=== PATIENT | male | born 1980 | race Caucasian/White ===

== ENCOUNTER → 2017-08-11 12:12 | Outpatient (CLI) | payer OTHER, SELFPAY ==
[2017-08-11] VITALS (8 sets, daily range): BP systolic 117–133; BP diastolic 71–84; PULSE 96–118; RESP 16–20; TEMP 36.2–36.6; O2SAT 94–98; BMI 34.2
[2017-08-11] MEDS: DiphenhydrAMINE 25 MG Capsule PO (12:17)
[2017-08-11] MEDS: Acetaminophen 325 MG Tablet 650 MG PO (12:17)
== END ==
DX: K50.90 Crohn's disease, unspecified, without complications (principal)
CPT/HCPCS: 96413; 96415; J7050; A4216; Q5102

== ENCOUNTER → 2017-10-06 12:07 | Outpatient (CLI) | payer OTHER, SELFPAY ==
[2017-10-06] VITALS (8 sets, daily range): BP systolic 122–139; BP diastolic 74–83; PULSE 71–98; RESP 16–18; TEMP 36.2–36.6; O2SAT 92–100; BMI 35.3
[2017-10-06] MEDS: Acetaminophen 325 MG Tablet 650 MG PO (12:07)
[2017-10-06] MEDS: DiphenhydrAMINE 25 MG Capsule PO (12:08)
== END ==
DX: K50.019 Crohn's disease of small intestine with unspecified complications (principal)
CPT/HCPCS: 96413; 96415; J7050; A4216; Q5103

== ENCOUNTER 2017-11-22 11:55 | Emergency (ER) | payer OTHER, SELFPAY ==
[2017-11-22 11:55] VITALS: BP 151/88; PULSE 79; RESP 16; TEMP 36.1; O2SAT 98; BMI 36.1
--- NOTE | 2017-11-22 12:20 | CT_ITS ---
STUDY: CT ABDOMEN AND PELVIS WITHOUT CONTRAST REASON FOR EXAM: Male, 36 years old. Left-sided abdominal pain. History of Crohn's disease and prior bowel resection. RADIATION DOSAGE (If Supplied By Facility): CTDIvol = ( 14.80 ) mGy, DLP = ( 881.46 ) mGycm TECHNIQUE: Transaxial images were obtained from the dome of the diaphragm to the symphysis pubis without oral contrast, and without intravenous contrast. Sagittal and coronal images were reconstructed. Individualized dose optimization techniques were used for this CT. COMPARISON: None. FINDINGS: Mild degree of increased markings at the lung bases suggestive of bibasilar atelectasis. The visualized portions of the heart are within normal limits. Normal liver. Normal gallbladder and extrahepatic biliary system. Borderline splenomegaly. Normal pancreas. Normal bilateral adrenal glands. Normal right kidney. Mild degree of left hydronephrosis due to a 3 mm calculus in the proximal portion of the left ureter. Normal visualized stomach. Normal small intestine. The patient is status post right hemicolectomy with anastomosis. The appendix is visualized and appears normal. Normal abdominal aorta. Normal inferior vena cava. Normal retroperitoneum. Normal urinary bladder. Normal abdominal wall. Normal osseous structures. CT/Abdomen/Pelvis without Cont IMPRESSION: 3 mm calculus in the proximal portion of the left ureter causing left hydronephrosis. Electronically Signed: Uri Jenkins MD at 13:46 EDT Tel [phone], Service support ,
--- NOTE | 2017-11-22 12:22 | ED.VISSUMM ---
- ER Visit Summary Date of Service: 11/22/17 Chief Complaint: Left-sided back pain History of Present Illness: The patient is a 36 M presenting with left-sided back and flank pain. This started around 8 AM this morning. He denies any injury. He has a history of a possible previous kidney stone. He has nausea, no vomiting. No diarrhea. He has history of Crohn's disease. Denies fever. He has mild abdominal cramping. Denies other complaints. Physical Examination: Vitals are stable. Patient is afebrile. Alert no acute distress. HEENT exam is unremarkable. Neck is supple. Lungs are clear and equal bilaterally. Heart is regular rate and rhythm. Abdomen is soft nontender nondistended. No rebound or guarding Back: left CVA tenderness, left paraspinal muscle tenderness Extremities are unremarkable. Skin is warm and dry. No focal neurologic deficit. Remainder of exam is unremarkable. Emergency Department Course and Treatment: Patient is given morphine, Zofran. CBC shows a white count of 12.0. Chemistries normal except creatinine 1.33. Urinalysis shows 0-5 white blood cells, 25-[address] flank shows 3 mm calculus in the proximal portion of the left ureter causing left hydronephrosis. On reevaluation, patient is resting comfortably. He is given a prescription for Percocet and Zofran. Advised to follow-up with primary care physician. Advised return to ED for worsening complaints. Disposition: Discharge home Impression: Urolithiasis This note was generated with [employer] dictation software. It may contain incorrect words, spelling, and punctuation that were not noted in review of the chart prior to signing ED Disposition - Plan for ED Patient: Chief Complaint: Flank Pain Instructions: ED Stone Renal W Colic Prescriptions: Oxycodone HCl/Acetaminophen [Percocet 5/325] 1 tablet PO Q6H PRN PRN 3 Days #12 tablet PRN Reason: Pain Ondansetron [Zofran Odt] 4 mg PO Q8H PRN PRN #10 tablet PRN Reason: Nausea Referrals: Nav Crenshaw MD [STAFF PHYSICIAN] - [facility] Doctor,Out of [Primary Care Provider] -
[2017-11-22] MEDS: 0.9% Normal Saline 1,000 ML 999 ML IV (12:46)
[2017-11-22] MEDS: Morphine 4 MG/ML Syringe IV (12:47)
[2017-11-22] MEDS: Ondansetron 4 MG/2 ML Vial IV (12:47)
[2017-11-22 12:50] LABS: Absolute Lymphocyte Count 2.49 X10^3/ul (0.83-4.51); Absolute Neutrophil Count 8.3 X10^3/uL (2.0-7.7); Basophil# 0.03 X10^3/uL; Basophil% 0.3 % (0-1); Eosinophils% 0.8 % (0-5); Hematocrit 43.3 % (40-54); Lymphocyte # 2.49 X10^3/ul (4.0); Lymphocyte % 20.8 % (19-41); Mean Corp Hgb Conc 34.6 g/gl (32-36); Mean Corpuscular Hgb 27.7 pg (27.0-32.0); Mean Corpuscular Volume 79.9 fL (80-94); Mean Platelet Vol. 10.4 fl (6.2-12.0); Monocyte# 1.01 X10^3/uL; Monocyte% 8.5 % (0-10); Neutrophil # 8.28 X10^3/uL (2.7-7.7); Neutrophil % 69.3 % (47-70); Platelet Count 237 K/mm3 (150-450); RBC Distribution Width CV 15.3 % (11.6-14.6); RBC Distribution Width SD 44.8 fl (35.1-43.9); Red Blood Count 5.42 M/mm3 (4.6-6.2)
[2017-11-22 12:53] LABS: POSITIVE COUNT NO; POSITIVE DIFFERENTIAL NO; POSITIVE MORPHOLOGY NO
[2017-11-22 12:54] LABS: Anion Gap 9 (5-15); BUN 18 mg/dL (7-18); BUN/Creat Ratio 13.5 RATIO (10-20); Chloride 109 mmol/L (98-107); Creatinine, Serum 1.33 mg/dL (0.70-1.30); EST Glomerular Filtration Rate 64 mL/min (>60); Est Glom Filt Rate - Afr Amer 77 mL/min (>60); Estimated Creatinine Clearance 73.57 ml/min; Glucose 114 mg/dL (74-106); Potassium 3.3 mmol/L (3.5-5.1); Sodium Level 142 mmol/L (136-145)
[2017-11-22 14:20] LABS: Bacteria 0 SEEN /hpf (None Seen); Mucous, Urine 0 SEEN /hpf (<or=2+)
[2017-11-22 14:23] LABS: Color, Urine Yellow (Yellow); Glucose, Dipstick Normal (Normal); Ketone-Dipstick Negative (Negative); Leukocyte Esterase-Dipstick 25 /ul (Negative); Nitrite-Dipstick Negative (Negative); Occult Blood-Urine 250 /ul (Negative); Protein-Dipstick Negative (Negative); Specific Gravity, Urine 1.015 (1.002-1.030); Urine Bilirubin Dipstick Negative (Negative); Urine Clarity Sl. Cloudy (Clear); Urine Urobilinogen Normal (Normal)
[2017-11-22 14:29] LABS: Red Blood Cells-Urine 25-50 SEEN /hpf (0-5); Squamous Epithelial Cells - UA 0-5 SEEN /hpf (0-5); White Blood Cells 0-5 SEEN /hpf (0-5)
[2017-11-22 14:30] LABS: Calcium Oxalate Crystals Ur 2+ /hpf (<or=2+)
--- NOTE | 2017-11-22 14:50 | ED.DEP ---
ED Disposition - Plan for ED Patient: Chief Complaint: Flank Pain Instructions: ED Stone Renal W Colic Prescriptions: Oxycodone HCl/Acetaminophen [Percocet 5/325] 1 tablet PO Q6H PRN PRN 3 Days #12 tablet PRN Reason: Pain Ondansetron [Zofran Odt] 4 mg PO Q8H PRN PRN #10 tablet PRN Reason: Nausea Referrals: [facility] Doctor,Out of [Primary Care Provider] - Nav Crenshaw MD [STAFF PHYSICIAN] -
--- NOTE | 2017-11-22 14:53 | DCINST.ED_ITS ---
ED Disposition - Plan for ED Patient: Chief Complaint: Flank Pain Instructions: ED Stone Renal W Colic Prescriptions: Oxycodone HCl/Acetaminophen [Percocet 5/325] 1 tablet PO Q6H PRN PRN 3 Days #12 tablet PRN Reason: Pain Ondansetron [Zofran Odt] 4 mg PO Q8H PRN PRN #10 tablet PRN Reason: Nausea Referrals: [facility] Doctor,Out of [Primary Care Provider] - Nav Crenshaw MD [STAFF PHYSICIAN] -
[2017-11-22 15:12] VITALS: BP 131/84; PULSE 78; RESP 16; O2SAT 99
== END 2017-11-22 15:13 | disposition home or self-care (01) ==
PROVIDERS: Emergency Provider Emergency Medicine
DX: N13.2 Hydronephrosis with renal and ureteral calculous obstruction (principal); K50.90 Crohn's disease, unspecified, without complications; Z79.899 Other long term (current) drug therapy; Z87.442 Personal history of urinary calculi
CPT/HCPCS: 74176; 80048; 81001; 85025; 96361; 96374; 96375; 99283; J7030; A4216; J2405

== ENCOUNTER → 2017-11-30 11:48 | Outpatient (CLI) | payer OTHER, SELFPAY ==
[2017-11-30] VITALS (8 sets, daily range): BP systolic 122–142; BP diastolic 68–88; PULSE 108–120; RESP 16–18; TEMP 36.3–36.6; O2SAT 91–98; BMI 35.9
[2017-11-30] MEDS: DiphenhydrAMINE 25 MG Capsule PO (12:25)
[2017-11-30] MEDS: Acetaminophen 325 MG Tablet 650 MG PO (12:26)
== END ==
DX: K50.90 Crohn's disease, unspecified, without complications (principal)
CPT/HCPCS: 96413; 96415; J7050; A4216; Q5103

== ENCOUNTER → 2018-01-24 11:58 | Outpatient (CLI) | payer OTHER, SELFPAY ==
[2018-01-24 12:27] VITALS: BP 142/79; PULSE 91; RESP 16; TEMP 37; O2SAT 98
[2018-01-24] MEDS: Acetaminophen 325 MG Tablet 650 MG PO (12:33)
[2018-01-24] MEDS: DiphenhydrAMINE 25 MG Capsule PO (12:33)
[2018-01-24 12:57] VITALS: BP 158/98; PULSE 59; RESP 16
[2018-01-24 13:15] VITALS: BP 141/70; PULSE 90; RESP 16
[2018-01-24 13:50] VITALS: BP 126/79; PULSE 84; RESP 16; O2SAT 98
[2018-01-24 15:30] VITALS: BP 127/69; PULSE 84; RESP 16
== END ==
DX: K50.019 Crohn's disease of small intestine with unspecified complications (principal)
CPT/HCPCS: 96413; 96415; J7050; Q5103

== ENCOUNTER 2018-02-03 19:31 | Emergency (ER) | payer OTHER, SELFPAY ==
[2018-02-03 19:34] VITALS: BP 159/94; PULSE 123; RESP 20; TEMP 36.9; O2SAT 97; BMI 34.7
--- NOTE | 2018-02-03 20:40 | EKG12_ITS ---
Test Reason : CP Blood Pressure : / mmHG Vent. Rate : 104 BPM Atrial Rate : 104 BPM P-R Int : 120 ms QRS Dur : 098 ms QT Int : 326 ms P-R-T Axes : 036 052 005 degrees QTc Int : 428 ms Sinus tachycardia Otherwise normal ECG Confirmed by WARREN SHEPARD ([id number]), commissioning editor CHRIS FOSTER ([id number]) on 02/08/2018 2:40:49 PM Referred By: Confirmed By:WARREN SHEPARD
[2018-02-03] MEDS: Morphine 4 MG/ML Syringe IV (21:08)
[2018-02-03] MEDS: Ondansetron 4 MG/2 ML Vial IV (21:08)
[2018-02-03] MEDS: 0.9% Normal Saline 1,000 ML 1000 ML IV (21:08)
[2018-02-03 21:12] LABS: Absolute Lymphocyte Count 1.43 X10^3/ul (0.83-4.51); Basophil# 0.01 X10^3/uL; Basophil% 0.1 % (0-1); Eosinophil# 0.01 X10^3/uL; Eosinophils% 0.1 % (0-5); Hematocrit 41.8 % (40-54); Hemoglobin 13.8 g/dl (13.0-16.5); Lymphocyte # 1.43 X10^3/ul (4.0); Lymphocyte % 8.5 % (19-41); Mean Corpuscular Volume 81.6 fL (80-94); Mean Platelet Vol. 10.1 fl (6.2-12.0); Monocyte# 1.25 X10^3/uL; Monocyte% 7.5 % (0-10); Neutrophil # 14.03 X10^3/uL (2.7-7.7); Neutrophil % 83.6 % (47-70); Platelet Count 201 K/mm3 (150-450); RBC Distribution Width CV 15.1 % (11.6-14.6); RBC Distribution Width SD 44.8 fl (35.1-43.9); Red Blood Count 5.12 M/mm3 (4.6-6.2); White Blood Count 16.8 K/mm3 (4.4-11.0)
[2018-02-03 21:13] LABS: POSITIVE COUNT NO; POSITIVE DIFFERENTIAL NO; POSITIVE MORPHOLOGY NO
[2018-02-03 21:28] LABS: Anion Gap 11 (5-15); BUN 15 mg/dL (7-18); BUN/Creat Ratio 12.4 RATIO (10-20); Chloride 103 mmol/L (98-107); Creatinine, Serum 1.21 mg/dL (0.70-1.30); EST Glomerular Filtration Rate 71 mL/min (>60); Est Glom Filt Rate - Afr Amer 86 mL/min (>60); Estimated Creatinine Clearance 80.08 ml/min; Glucose 94 mg/dL (74-106); Potassium 3.9 mmol/L (3.5-5.1); Sodium Level 139 mmol/L (136-145)
[2018-02-03 21:47] LABS: CPK Total, Creatine Kinase 29 U/L (39-308)
--- NOTE | 2018-02-03 23:12 | ED.DCSUM_ITS ---
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 He reports he has myalgias that began yesterday in his jaw. They have gradually increased. He reports that now his neck and shoulders are stiff and painful. Today it is now radiated from his shoulders down into his arms bilaterally. He reports that his lower buttocks and hamstrings bilaterally are aching as well. No recent trauma. No fall, MVA, or change in activity. He denies any arthralgias. Review of systems: General: No fever, chills, cold sweats. Cardiovascular: No chest pain, palpitations. Respiratory: No cough, shortness of breath, dyspnea on exertion. Gastrointestinal: No abdominal pain, vomiting, diarrhea, melena, or hematochezia. Genitourinary: No dysuria, frequency, hematuria. Skin: No rash. Neuro: No headache, numbness, weakness. Physical Examination: Vitals: Stable. Afebrile. General: Well-nourished and well-developed. Head: Normocephalic atraumatic. Neck: Supple, no lymphadenopathy. No JVD. Nontender. Cardiovascular: Regular rate and rhythm. No murmurs. Respiratory: No respiratory distress. Clear to auscultation bilaterally. Abdominal: Soft, nontender, nondistended, normal bowel sounds. No guarding, rebound, or peritoneal signs. Back: Nontender. Extremities: Mild tenderness to palpation over his deltoids, biceps, and triceps bilaterally. Mild tenderness palpation over his thighs bilaterally. He is neurovascular intact distal this. No erythema or warmth to suggest infection., no edema. Skin: Normal color, no rash. Neurologic: Alert and oriented ?3. Cranial nerves II through XII are intact. Normal strength and sensation. Psych: Normal affect. Test Results: CPK is normal. Chem-7 is normal. CBC is remarkable for a white count of 16.8 with 84 segmented neutrophils and 9 lymphocytes. However, the patient is on prednisone. EKG is sinus tachycardia [address] changes. Emergency Department Course and Treatment: Patient was treated with a dose of morphine and Zofran IV. He was given Valium p.o. Treatment Plan: Patient will be discharged prescription for 10 Valium and 10 Percocet. Instructed to follow-up his primary care physician 1-2 days if not improving. Return to the emergency department for any worsening symptoms. Disposition: To home in improved and stable condition. Impression: 1. Myalgias, uncertain cause. This note was generated with [employer] software. It may contain incorrect words, spelling, and punctuation that were not noted in review of the chart prior to signing ED Disposition - Plan for ED Patient: Disposition: Home or Assisted Living Chief Complaint: General Illness Instructions: ED Muscle Aching Referrals: Doctor,Your [STAFF PHYSICIAN] - 1-2 Days if not improving
[2018-02-03] MEDS: diazePAM 5 MG Tablet PO (23:41)
[2018-02-03] MEDS: oxyCODONE 5 MG Tablet PO (23:41)
[2018-02-03 23:42] VITALS: BP 126/72; PULSE 104; RESP 16; O2SAT 98
== END 2018-02-03 23:45 | disposition home or self-care (01) ==
LOC: ED 20:26
PROVIDERS: Emergency Provider Emergency Medicine
DX: M79.1 Myalgia (principal); I10 Essential (primary) hypertension; K50.90 Crohn's disease, unspecified, without complications; R00.0 Tachycardia, unspecified; Z87.442 Personal history of urinary calculi; Z79.899 Other long term (current) drug therapy; Z90.49 Acquired absence of other specified parts of digestive tract
CPT/HCPCS: 80048; 82550; 85025; 93005; 96361; 96374; 96375; 99285; J7030; A4216; J2405

== ENCOUNTER 2018-02-04 10:45 | Inpatient (IN) | payer OTHER, SELFPAY ==
[2018-02-04] VITALS (16 sets, daily range): BP systolic 121–146; BP diastolic 74–96; PULSE 87–118; RESP 16–27; TEMP 35.9–36.9; O2SAT 94–98; BMI 34.8; BMI 35.1
--- NOTE | 2018-02-04 | CYSPIN_PTH ---
PATIENT: ANNABELLA ELLIOTT LOC: MS3 U#:[id number] AGE/SX: 37/M ROOM: MS311 RE02/04/[address]: Dr. Lizabeth Charles MD : 1980 BED: 1 DIS: 02/05/2018 SPEC #: [id number] RECD: 02/04/18 14:18 STATUS: CHANDU REHaris #: [id number] LYNN: 02/04/18 00:[address]: Scar Obrien DEPT: CYTOLOGY RECD BY: Lexx Emanuel ENTERED: 02/04/18 14:19 SP TYPE: CYSPIN FL OT DR: No Primary Care Phys Tissues: Cerebrospinal Fluid Procedures: Pap Stain (control) Special Stain Group II Cytospin Fluid HEADER OPERATION: Not noted PRE-OP DIAGNOSIS: Weakness TISSUE SUBMITTED: Cerebrospinal fluid for cytology DIAGNOSIS CYTOLOGY Cerebrospinal fluid for cytology (cytospin): Acellular specimen. SJ:lanodn 02/07/18 CYTOLOGY STUDY Slides are reviewed. CYTOLOGY GROSS Received is 0.5 ml of clear fluid labeled with the patient's name and and designated per the requisition as CSF. Submitted for cytology preparation. 02/04/18 TC:4 CPT: 37823
--- NOTE | 2018-02-04 11:11 | CT_ITS ---
STUDY: CT BRAIN WITHOUT CONTRAST REASON FOR EXAM: Male, 37 years old. Pain, weakness RADIATION DOSAGE (If Supplied By Facility): CTDIvol = ( 44.99 ) mGy, DLP = ( 846.73 ) mGycm TECHNIQUE: Transaxial CT imaging of the brain was performed without administration of intravenous contrast material. Sagittal and coronal reconstructed images are provided and reviewed. Individualized dose optimization techniques were used for this CT. COMPARISON: None. FINDINGS: Normal soft tissue structures. Normal calvarium. Normal size ventricles and extra-axial spaces for the patient's age. Normal white matter tracts of the cerebral hemispheres. Normal basal ganglia and thalami. Normal brainstem. Normal cerebellum. There is no intracranial hemorrhage. There are no findings of an acute ischemic infarction. Normal visualized paranasal sinuses. CT/Brain/Head without Contrast IMPRESSION: Normal unenhanced CT scan of the brain. Electronically Signed: Royce Bridges DO at 12:52 EDT Tel , Service support ,
--- NOTE | 2018-02-04 11:16 | ED.VISSUMM ---
- ER Visit Summary Date of Service: 02/04/18 Chief Complaint: Weakness History of Present Illness: The patient is a 37 M who presents with progressive weakness in his arms and legs for the past 2 days. Patient states he has pain in his arms and legs that is worse with movement. Patient describes it as a constant aching but sharp with movement. Patient states he seems to be worse in the hips and shoulders. Patient denies any fevers or chills. Patient denies any recent illness. Patient denies any recent immunizations. Patient denies any chest pain or shortness of breath. Patient denies any nausea or vomiting. Patient denies any headaches. Physical Examination: Vital signs are stable. Patient is afebrile. Patient is in no acute distress. Oral mucosa is pink and moist. Neck is supple. Trachea is midline. There is no JVD noted. Heart was regular rate and rhythm. Lungs are clear and equal bilaterally. There is good respiratory effort noted. Abdomen is soft. Bowel sounds are normal. There is no tenderness noted. Cranial nerves II through XII are intact. Strength is 4 out of 5 bilaterally in the upper and lower extremities. Patient appears to have more difficulty moving his shoulders and hips than he does his hands and feet. Sensation was intact to light touch in all dermatomes. Test Results: CBC shows a leukocytosis of 15.6 with 92% neutrophils. Total bilirubin was elevated 2.10. The remaining labs are within normal limits. Cerebrospinal fluid analysis was essentially within normal limits. Emergency Department Course and Treatment: Case was discussed with Dr. Varela. He did not recommend starting steroids at this time. He stated he would obtain additional labs. Case was discussed with Dr. Nieves. Patient will be admitted to ICU. Case was discussed with Dr. Obrien, the hospitalist. Patient will be admitted to his service. Disposition: Admit to ICU Impression: Extremity weakness This note was generated with [employer] dictation software. It may contain incorrect words, spelling, and punctuation that were not noted in review of the chart prior to signing ED Disposition - Plan for ED Patient: Disposition: Acute Care Hospital [facility] Chief Complaint: Weakness Diagnosis: Proximal weakness of extremity Referrals: [facility] Doctor,Out of [NON-STAFF] -
[2018-02-04 11:41] LABS: Absolute Neutrophil Count 14.4 X10^3/uL (2.0-7.7); Basophil# 0.01 X10^3/uL; Basophil% 0.1 % (0-1); Differential Indicated SCAN CRITERIA MET; Hematocrit 40.6 % (40-54); Hemoglobin 13.7 g/dl (13.0-16.5); Lymphocyte % 2.6 % (19-41); Mean Corp Hgb Conc 33.7 g/gl (32-36); Mean Corpuscular Hgb 27.2 pg (27.0-32.0); Mean Corpuscular Volume 80.6 fL (80-94); Mean Platelet Vol. 9.9 fl (6.2-12.0); Monocyte# 0.71 X10^3/uL; Monocyte% 4.6 % (0-10); Neutrophil # 14.44 X10^3/uL (2.7-7.7); Neutrophil % 92.5 % (47-70); POSITIVE COUNT NO; POSITIVE DIFFERENTIAL YES; POSITIVE MORPHOLOGY NO; Platelet Count 210 K/mm3 (150-450); RBC Distribution Width CV 15.4 % (11.6-14.6); Red Blood Count 5.04 M/mm3 (4.6-6.2); White Blood Count 15.6 K/mm3 (4.4-11.0)
[2018-02-04 11:45] LABS: International Normalized Ratio 1.2; Prothrombin Time (Protime)PT. 15.2 SECONDS (11.7-14.9)
[2018-02-04 11:46] LABS: Partial Thromboplast Time 41.1 Seconds (24.1-36.2)
[2018-02-04 12:01] LABS: Cytology, Body Fluid / CSF SEE PATHOLOGY REPORT
[2018-02-04 12:05] LABS: ALB/GLOB Ratio 0.8 RATIO (0.9-2.4); AST(SGOT) 8 U/L (15-37); Alanine Aminotransfer ALT/SGPT 24 U/L (16-61); Albumin, Serum 3.4 g/dL (3.2-5.0); Alkaline Phosphatase 71 U/L (45-117); Anion Gap 7 (5-15); BUN 14 mg/dL (7-18); BUN/Creat Ratio 12.5 RATIO (10-20); Calcium,Total 9.1 mg/dL (8.5-10.1); Chloride 107 mmol/L (98-107); Creatinine, Serum 1.12 mg/dL (0.70-1.30); EST Glomerular Filtration Rate 78 mL/min (>60); Est Glom Filt Rate - Afr Amer 94 mL/min (>60); Estimated Creatinine Clearance 86.52 ml/min; Globulin 4.2 g/dL (2.2-4.2); Glucose 138 mg/dL (74-106); Potassium 3.9 mmol/L (3.5-5.1); Protein, Total 7.6 g/dL (6.4-8.2); Sodium Level 140 mmol/L (136-145)
[2018-02-04 12:06] LABS: Lactic Acid 0.9 mmol/L (0.4-2.0)
[2018-02-04 12:16] LABS: Body Fluid Mononuclear WBC # 0.001 10^3/uL; Body Fluid Polynuclear WBC # 0.001 10^3/uL; Total Cell Count CSF 0.002 10^3/uL (0.000-0.000); White Count, CSF 0.002 10^3/uL (0.000-0.000)
[2018-02-04 12:25] LABS: Appearance CSF (character) CLEAR (Clear); Auto B Fluid Analyzer BKGD Ct COUNTS W/IN LIMITS (W/IN LIMITS); CSF Color COLORLESS (Colorless); Tested Tube # 4
[2018-02-04 12:26] LABS: Body Fluid QC Type(s) BF1Q; RBC Count, Spinal Fluid 0 /mm-3 (None seen)
[2018-02-04 12:28] LABS: Glucose Spinal Fluid 58 mg/dL (40-75)
--- NOTE | 2018-02-04 13:07 | NURSING ---
PAGED DR PEÑA
--- NOTE | 2018-02-04 13:21 | NURSING ---
HOSPITALIST IN ER
--- NOTE | 2018-02-04 13:26 | NURSING ---
[facility] ICU EXTREMITY WEAKNESS
--- NOTE | 2018-02-04 14:28 | PCM.CONS.GEN ---
Reason for Consult Date of Consultation: 02/04/18 Reason for Consultation: weakness History of Present Illness: The patient is a 37 year old male with a history of crohn's disease, on remicade for about 9 months, with a total of approx 5 remicade infusions previously well tolerated. he has also had a partial colectomy for his crohns disease several years ago. 8 days ago he recieved a remicade infusion, and 2 days ago he noted bilateral jaw and right shoulder discomfort followed by progressive severe weakness. his is present and notes he was unable to put his shirt on this morning. no other recent illness or med changes. no SOB, or dysphagia. no vision changes. Past Medical History Medical History: Medical History (Last Updated 02/04/18 @ 14:33 by Jus Varela MD) Crohns disease K50.90 Allergies ciprofloxacin [From Cipro] Adverse Reaction (Verified 02/03/18 19:36) Other hallucinations Home Medications: Ambulatory Orders Medication Instructions Recorded Losartan Potassium [Cozaar] 50 mg PO DAILY 05/05/17 Budesonide Capsule [Entocort EC] 9 mg PO DAILY 10/06/17 Infliximab-DYYB [Inflectra] 500 mg IV .COMPLEX 02/04/18 Surgical History: colectomy Psychiatric History: No pertinent psych hx Lives: Spouse/ Significant Other Smoking Status: Never smoker Alcohol: None Drugs: None Review of Systems Constitutional: Denies: Chills, Fever, Weight Change Eyes: Denies: Blurred vision, Double vision HEENT: Denies: Head Aches, Sinus Congestion, Sinus Drainage Cardiovascular: Denies: Chest Pain, Palpitations Respiratory: Denies: Cough, Shortness of breath at rest, Sputum production Gastrointestinal: Denies: Abdominal Pain, Diarrhea, Nausea, Vomiting Genitourinary: Denies: Dysuria Musculoskeletal: Reports: Muscle pain. Denies: Joint Pain, Joint Tenderness Skin: Denies: Rash, Wounds Neurological: Reports: Focal weakness. 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 normal villanueva strength 1/5 in right shoulder abductor 4/5 left shoulder 4/5 community engagement coordinator bilat left HF 1/5 right HF 3/5 df/pf 4/5 bilat dtrs 2+ sensation intact - Physical Exam Psych/Mental Status: Normal Affect Vital Signs Temp Pulse Resp BP Pulse Ox 35.9 C L 89 18 133/85 H 97 02/04/18 10:45 02/04/18 14:12 02/04/18 14:12 02/04/18 14:12 02/04/18 14:12 Laboratory Tests 02/04/18 02/04/18 02/04/18 11:30 11:30 11:30 WBC 15.6 H RBC 5.04 Hgb 13.7 Hct 40.6 MCV 80.6 MCH 27.2 MCHC 33.7 RDW 15.4 H RDW Differential 45.0 H Plt Count 210 MPV 9.9 Immature Gran % (Auto) 0.200 Neut % (Auto) 92.5 H Lymph % (Auto) 2.6 L [place] % (Auto) 4.6 Eos % (Auto) 0.0 Baso % (Auto) 0.1 Absolute Neuts (auto) 14.4 H Absolute Lymphs (auto) 0.40 L Total Counted Not Reportable PT 15.2 H INR 1.2 APTT 41.1 H Sodium 140 Potassium 3.9 Chloride 107 Carbon Dioxide 26.0 Anion Gap 7 BUN 14 Creatinine 1.12 Estim Creat Clear Calc 86.52 Est GFR (MDRD) Af Amer 94 Est GFR (MDRD) Non-Af 78 BUN/Creatinine Ratio 12.5 Glucose 138 H Lactic Acid Calcium 9.1 Total Bilirubin 2.10 H AST 8 L ALT 24 Alkaline Phosphatase 71 Total Protein 7.6 Albumin 3.4 Globulin 4.2 Albumin/Globulin Ratio 0.8 L Fld Polynuclear WBCs # 0.001 Fld Polynuclear WBCs % 50.0 Fluid Mononuclear WBCs 0.001 Fld Mononuclear WBCs % 50.0 CSF Appearance CLEAR CSF Color COLORLESS CSF WBC 0.002 H CSF RBC 0 CSF Cell Count Tube # 4 CSF Total Cell Counted 0.002 H csf protein 44 (normal) Assessment/Plan All Active Problems (Last Updated 02/04/18 @ 14:33 by Jus Varela MD) Proximal weakness of extremity (Acute) acute weakness, GBS (reported post remicade in literature) vs multiple plexopathies vs viral syndrome csf normal, ncv normal, and reflexes intact indicates non-demyelinating syndrome, await ncvs mri thoracic and lumbar spine steroids follow nif and vc
--- NOTE | 2018-02-04 14:32 | CON.PCM_ITS ---
Reason for Consult Date of Consultation: 02/04/18 Reason for Consultation: weakness History of Present Illness: The patient is a 37 year old male with a history of crohn's disease, on remicade for about 9 months, with a total of approx 5 remicade infusions previously well tolerated. he has also had a partial colectomy for his crohns disease several years ago. 8 days ago he recieved a remicade infusion, and 2 days ago he noted bilateral jaw and right shoulder discomfort followed by progressive severe weakness. his is present and notes he was unable to put his shirt on this morning. no other recent illness or med changes. no SOB, or dysphagia. no vision changes. Past Medical History Medical History: Medical History (Last Updated 02/04/18 @ 14:33 by Jus Varela MD) Crohns disease K50.90 Allergies ciprofloxacin [From Cipro] Adverse Reaction (Verified 02/03/18 19:36) Other hallucinations Home Medications: Ambulatory Orders Medication Instructions Recorded Losartan Potassium [Cozaar] 50 mg PO DAILY 05/05/17 Budesonide Capsule [Entocort EC] 9 mg PO DAILY 10/06/17 Infliximab-DYYB [Inflectra] 500 mg IV .COMPLEX 02/04/18 Surgical History: colectomy Psychiatric History: No pertinent psych hx Lives: Spouse/ Significant Other Smoking Status: Never smoker Alcohol: None Drugs: None Review of Systems Constitutional: Denies: Chills, Fever, Weight Change Eyes: Denies: Blurred vision, Double vision HEENT: Denies: Head Aches, Sinus Congestion, Sinus Drainage Cardiovascular: Denies: Chest Pain, Palpitations Respiratory: Denies: Cough, Shortness of breath at rest, Sputum production Gastrointestinal: Denies: Abdominal Pain, Diarrhea, Nausea, Vomiting Genitourinary: Denies: Dysuria Musculoskeletal: Reports: Muscle pain. Denies: Joint Pain, Joint Tenderness Skin: Denies: Rash, Wounds Neurological: Reports: Focal weakness. 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 bilat left HF 1/5 right HF 3/5 df/pf 4/5 bilat dtrs 2+ sensation intact - Physical Exam Psych/Mental Status: Normal Affect Vital Signs Temp Pulse Resp BP Pulse Ox 35.9 C L 89 18 133/85 H 97 02/04/18 10:45 02/04/18 14:12 02/04/18 14:12 02/04/18 14:12 02/04/18 14:12 Laboratory Tests 02/04/18 02/04/18 02/04/18 11:30 11:30 11:30 WBC 15.6 H RBC 5.04 Hgb 13.7 Hct 40.6 MCV 80.6 MCH 27.2 MCHC 33.7 RDW 15.4 H RDW Differential 45.0 H Plt Count 210 MPV 9.9 Immature Gran % (Auto) 0.200 Neut % (Auto) 92.5 H Lymph % (Auto) 2.6 L [place] % (Auto) 4.6 Eos % (Auto) 0.0 Baso % (Auto) 0.1 Absolute Neuts (auto) 14.4 H Absolute Lymphs (auto) 0.40 L Total Counted Not Reportable PT 15.2 H INR 1.2 APTT 41.1 H Sodium 140 Potassium 3.9 Chloride 107 Carbon Dioxide 26.0 Anion Gap 7 BUN 14 Creatinine 1.12 Estim Creat Clear Calc 86.52 Est GFR (MDRD) Af Amer 94 Est GFR (MDRD) Non-Af 78 BUN/Creatinine Ratio 12.5 Glucose 138 H Lactic Acid Calcium 9.1 Total Bilirubin 2.10 H AST 8 L ALT 24 Alkaline Phosphatase 71 Total Protein 7.6 Albumin 3.4 Globulin 4.2 Albumin/Globulin Ratio 0.8 L Fld Polynuclear WBCs # 0.001 Fld Polynuclear WBCs % 50.0 Fluid Mononuclear WBCs 0.001 Fld Mononuclear WBCs % 50.0 CSF Appearance CLEAR CSF Color COLORLESS CSF WBC 0.002 H CSF RBC 0 CSF Cell Count Tube # 4 CSF Total Cell Counted 0.002 H csf protein 44 (normal) Assessment/Plan All Active Problems (Last Updated 02/04/18 @ 14:33 by Jus Varela MD) Proximal weakness of extremity (Acute) acute weakness, GBS (reported post remicade in literature) vs multiple plexopathies vs viral syndrome csf normal, ncv normal, and reflexes intact indicates non-demyelinating syndrome, await ncvs mri thoracic and lumbar spine steroids follow nif and vc
--- NOTE | 2018-02-04 15:08 | NEURO ---
NCS and/or EMG Patient Report Ordering Doctor: Jus Varela DATE OF SERVICE: 02/04/18 right upper and right lower ext NCV is performed to evaluate acute weakness in this 37 yo male. in the right upper extremity normal median motor and sensory, normal ulnar motor and sensory, and normal radial sensory responses are obtained in the right lower extremity, normal sural sensory responses are obtained. the common peroneal motor and tibial motor responses are normal. f-wave latencies from the median, ulnar, tibial and common peroneal nerves are seen normal h-reflexes from the bilateral tibial nerves are obtained. impression: normal NCV of the right upper and lower extremity without evidence of conduction block.
--- NOTE | 2018-02-04 15:25 | CASEMGMT ---
RN CM Note: attempted to complete RN CM Assessment. Unable to see pt at this time. Hong DE LOS SANTOSN RN ACM
--- NOTE | 2018-02-04 15:55 | PCM.CON.CC ---
Problem List (1) Crohns disease Status: Acute (2) Proximal weakness of extremity Status: Acute Reason for Consult Date of Consultation: 02/04/18 Reason for Consultation: ICU management History of Present Illness: The patient is a 37 year old M, with past medical history significant for Crohn's disease on Remicade therapy for approximately 9 months, who presents to [facility] on 02/04/2018 secondary to proximal muscle pain. Patient states that people have asked if it is weakness, but he states that on Wednesday, 2 days prior to presentation, patient started to have jaw pain that radiated into the neck and bilateral shoulders. This was subsequently told by proximal muscle pain in the legs leading to an inability to put his clothes on. Patient presented for evaluation. In the emergency room, patient had an LP that was unremarkable. Patient is also had an EMG that was within normal limits. Patient had an initial Bulmaro greater than 50 in a vital capacity over 2-1/2 L. Patient was admitted to the intensive care unit for monitoring of his respiratory system. Patient does report he received his Remicade infusion approximately 8 days ago. Patient states his Crohn's is fairly controlled. Patient states he typically takes Tylenol for pain, but was on narcotics this morning secondary to severe pain. Patient states he does not feel that he is overly weak, but has significant pain in the proximal muscles with any sort of movement. Patient denies any sensation of dyspnea at this time. Patient states his bowel movements have been at his baseline. Patient denies any rash, trauma or exposures. Patient reports a very brief exposure to tobacco in college. Patient denies any alcohol or drugs. 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 Patient denies any exposure to tuberculosis or asbestos. Patient denies any previous complications with Remicade therapy. Patient has not had any change in sensation, dysphagia or dizziness. Patient denies any change in vision or facial droop. Patient denies any recent viral illnesses. Review of systems otherwise negative ?10 systems. Past Medical History Medical History: Medical History (Last Updated 02/04/18 @ 15:13 by Teressa Anderson) Crohns disease K50.90 HTN (hypertension) I10 Allergies ciprofloxacin [From Cipro] Adverse Reaction (Verified 02/03/18 19:36) Other hallucinations Home Medications: Ambulatory Orders Medication Instructions Recorded Losartan Potassium [Cozaar] 50 mg PO DAILY 05/05/17 Budesonide Capsule [Entocort EC] 9 mg PO DAILY 10/06/17 Infliximab-DYYB [Inflectra] 500 mg IV .COMPLEX 02/04/18 Surgical History: colectomy Psychiatric History: No pertinent psych hx Lives: Spouse/ Significant Other Smoking Status: Never smoker Tobacco Use: Non-smoker Alcohol: None Drugs: None Review of Systems Comment: See HPI Patient Problems: Active and Suspected Problems (Last Updated 02/04/18 @ 15:13 by Teressa Anderson) Proximal weakness of extremity (Acute) Crohns disease (Acute) Objective: CT scan of the head was personally reviewed and no obvious abnormalities were appreciated. - Physical Exam General: Alert, Oriented x3, Cooperative, No apparent distress, - - Obese. Speaking in full sentences. HEENT: Atraumatic, PERRLA, EOMI, Normocephalic, - - No scleral icterus or injection noted. No facial droop appreciated. Oral: Moist Mucosa, No Gingival or Mucosal Lesions/ Ulcerations, - - Good dentition. Neck: Supple, No JVD, No Nodes, Trachea Midline, - - Unable to palpate any fluctuant masses in the neck or parotid areas. Lungs: Clear to auscultation, Normal air movement, No rhonchi, No wheeze, No rales Cardiovascular: Regular rate, Regular Rhythm, Normal S1, Normal S2, No murmurs, No rub noted, No Gallop Abdomen: Bowel Sounds Present, Soft, Non Tender, Non-Distended, Obese Extremities: No clubbing, No cyanosis, No edema, Capillary Refill Less than 3 Seconds Skin: No rashes, No breakdown, - - No Gottron's patches or heliotrope rash appreciated Musculoskeletal: - - Tenderness to palpation of the proximal thighs and arms. Point tenderness at the medial bicep insertion site Lymphatic: No Cervical, Supraclavicular, or Inguinal Adenopathy Neurological: - - Sensation appears to be intact. No facial droop is appreciated. Patient with limited movement of the left lower extremity, but is able to move his right lower extremity to gravity. 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 Limited ability to lift left arm, but can hold right arm against gravity. Psych/Mental Status: Alert and oriented to time, place, person, mood and affect Vital Signs Temp Pulse Resp BP Pulse Ox 35.9 C L 89 18 133/85 H 97 02/04/18 10:45 02/04/18 14:12 02/04/18 14:12 02/04/18 14:12 02/04/18 14:12 Oxygen Delivery Method Room Air Weight: 104.78 kg Body Mass Index (BMI) 35.1 Laboratory Tests 02/04/18 02/04/18 02/04/18 11:30 11:30 11:30 WBC 15.6 H RBC 5.04 Hgb 13.7 Hct 40.6 MCV 80.6 MCH 27.2 MCHC 33.7 RDW 15.4 H RDW Differential 45.0 H Plt Count 210 MPV 9.9 Immature Gran % (Auto) 0.200 Neut % (Auto) 92.5 H Lymph % (Auto) 2.6 L [place] % (Auto) 4.6 Eos % (Auto) 0.0 Baso % (Auto) 0.1 Absolute Neuts (auto) 14.4 H Absolute Lymphs (auto) 0.40 L Total Counted Not Reportable PT 15.2 H INR 1.2 APTT 41.1 H Sodium 140 Potassium 3.9 Chloride 107 Carbon Dioxide 26.0 Anion Gap 7 BUN 14 Creatinine 1.12 Estim Creat Clear Calc 86.52 Est GFR (MDRD) Af Amer 94 Est GFR (MDRD) Non-Af 78 BUN/Creatinine Ratio 12.5 Glucose 138 H Lactic Acid Calcium 9.1 Total Bilirubin 2.10 H AST 8 L ALT 24 Alkaline Phosphatase 71 Total Protein 7.6 Albumin 3.4 Globulin 4.2 Albumin/Globulin Ratio 0.8 L Fld Polynuclear WBCs # Fld Polynuclear WBCs % Fluid Mononuclear WBCs Fld Mononuclear WBCs % CSF Appearance CSF Color CSF WBC CSF RBC CSF Cell Count Tube # CSF Total Cell Counted CSF Comment CSF Glucose CSF Total Protein 02/04/18 02/04/18 02/04/18 11:30 11:45 11:45 WBC RBC Hgb Hct MCV MCH MCHC RDW RDW Differential Plt Count MPV Immature Gran % (Auto) Neut % (Auto) Lymph % (Auto) [place] % (Auto) Eos % (Auto) Baso % (Auto) Absolute Neuts (auto) Absolute Lymphs (auto) Total Counted PT INR APTT Sodium Potassium Chloride Carbon Dioxide Anion Gap BUN Creatinine Estim Creat Clear Calc Est GFR (MDRD) Af Amer Est GFR (MDRD) Non-Af BUN/Creatinine Ratio Glucose Lactic Acid 0.9 Calcium Total Bilirubin AST ALT Alkaline Phosphatase Total Protein Albumin Globulin Albumin/Globulin Ratio Fld Polynuclear WBCs # Fld Polynuclear WBCs % Fluid Mononuclear WBCs Fld Mononuclear WBCs % CSF Appearance CSF Color CSF WBC CSF RBC CSF Cell Count Tube # CSF Total Cell Counted CSF Comment CSF Glucose 58 CSF Total Protein 44.0 02/04/18 11:45 WBC RBC Hgb Hct MCV MCH MCHC RDW RDW Differential Plt Count MPV Immature Gran % (Auto) Neut % (Auto) Lymph % (Auto) [place] % (Auto) Eos % (Auto) Baso % (Auto) Absolute Neuts (auto) Absolute Lymphs (auto) Total Counted PT INR APTT Sodium Potassium Chloride Carbon Dioxide Anion Gap BUN Creatinine Estim Creat Clear Calc Est GFR (MDRD) Af Amer Est GFR (MDRD) Non-Af BUN/Creatinine Ratio Glucose Lactic Acid Calcium Total Bilirubin AST ALT Alkaline Phosphatase Total Protein Albumin Globulin Albumin/Globulin Ratio Fld Polynuclear WBCs # 0.001 Fld Polynuclear WBCs % 50.0 Fluid Mononuclear WBCs 0.001 Fld Mononuclear WBCs % 50.0 CSF Appearance CLEAR CSF Color COLORLESS CSF WBC 0.002 H CSF RBC 0 CSF Cell Count Tube # 4 CSF Total Cell Counted 0.002 H CSF Comment May follow CSF Glucose CSF Total Protein Clinical Impression(s) from Imaging Studies Brain CT 02/04/18 11:11 IMPRESSION: Normal unenhanced CT scan of the brain. Electronically Signed: Royce Bridges DO at 12:52 EDT Tel , Service support , Assessment/Plan Active and Suspected Problems (Last Updated 02/04/18 @ 15:13 by Teressa Anderson) Proximal weakness of extremity (Acute) Crohns disease (Acute) RECOMMENDATIONS: 1. Obtain CPK, ESR and CRP 2. Obtain random cortisol for adrenal insufficiency 3. Obtain tox screen 4. NIF and vital capacities every 4 hours for 24 hours, BiPAP rescue if necessary 5. Toradol IV for pain 6. Await MRI 7. Possibly transfer out of the intensive care unit tomorrow morning IMPRESSIONS: 1. Proximal muscle pain/weakness Unclear etiology at this time. Patient does not appear to have an ascending or descending neuropathy such as Guyon Ochoa? syndrome. Patient's LP was relatively unremarkable. Patient does have some pain on palpation. Will check a TSH for possible thyroid abnormalities. CPK to evaluate for rhabdomyolysis. Will obtain an ANN and ANCA for vasculitis and rheumatologic etiologies. CRP and ESR for evaluation of inflammation state. We will also obtain a tox screen. Patient's blood sugars are within normal limits, so diabetic neuropathy is unlikely. He does not have dermatologic findings consistent with dermatomyositis. Patient does not have any respiratory symptoms consistent with influenza. Patient is not reporting any recent travel, so Chagas disease is unlikely. Patient is not currently on a statin. Patient does not take glucocorticoids at baseline. She does not have any significant electrolyte abnormalities such as hyperkalemia. Can check phosphate in the morning. Low clinical suspicion for respiratory depression. Possibly transfer out of the intensive care unit tomorrow. 2. Crohn's disease Patient does have a history of Crohn's disease treated with Remicade therapy. Patient appears to be doing well at this time. Code Visit Inpatient E&M: 03046 Init Hosp L3
--- NOTE | 2018-02-04 15:59 | CON.PCM_ITS ---
Problem List (1) Crohns disease Status: Acute (2) Proximal weakness of extremity Status: Acute Reason for Consult Date of Consultation: 02/04/18 Reason for Consultation: ICU management History of Present Illness: The patient is a 37 year old M, with past medical history significant for Crohn' s disease on Remicade therapy for approximately 9 months, who presents to [facility] on 02/04/2018 secondary to proximal muscle pain. Patient states that people have asked if it is weakness, but he states that on Wednesday, 2 days prior to presentation, patient started to have jaw pain that radiated into the neck and bilateral shoulders. This was subsequently told by proximal muscle pain in the legs leading to an inability to put his clothes on. Patient presented for evaluation. In the emergency room, patient had an LP that was unremarkable. Patient is also had an EMG that was within normal limits. Patient had an initial Bulmaro greater than 50 in a vital capacity over 2- 1/2 L. Patient was admitted to the intensive care unit for monitoring of his respiratory system. Patient does report he received his Remicade infusion approximately 8 days ago. Patient states his Crohn's is fairly controlled. Patient states he typically takes Tylenol for pain, but was on narcotics this morning secondary to severe pain. Patient states he does not feel that he is overly weak, but has significant pain in the proximal muscles with any sort of movement. Patient denies any sensation of dyspnea at this time. Patient states his bowel movements have been at his baseline. Patient denies any rash, trauma or exposures. Patient reports a very brief exposure to tobacco in college. Patient denies any alcohol or drugs. 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 Patient denies any exposure to tuberculosis or asbestos. Patient denies any previous complications with Remicade therapy. Patient has not had any change in sensation, dysphagia or dizziness. Patient denies any change in vision or facial droop. Patient denies any recent viral illnesses. Review of systems otherwise negative ?10 systems. Past Medical History Medical History: Medical History (Last Updated 02/04/18 @ 15:13 by Teressa Anderson) Crohns disease K50.90 HTN (hypertension) I10 Allergies ciprofloxacin [From Cipro] Adverse Reaction (Verified 02/03/18 19:36) Other hallucinations Home Medications: Ambulatory Orders Medication Instructions Recorded Losartan Potassium [Cozaar] 50 mg PO DAILY 05/05/17 Budesonide Capsule [Entocort EC] 9 mg PO DAILY 10/06/17 Infliximab-DYYB [Inflectra] 500 mg IV .COMPLEX 02/04/18 Surgical History: colectomy Psychiatric History: No pertinent psych hx Lives: Spouse/ Significant Other Smoking Status: Never smoker Tobacco Use: Non-smoker Alcohol: None Drugs: None Review of Systems Comment: See HPI Patient Problems: Active and Suspected Problems (Last Updated 02/04/18 @ 15:13 by Teressa Anderson) Proximal weakness of extremity (Acute) Crohns disease (Acute) Objective: CT scan of the head was personally reviewed and no obvious abnormalities were appreciated. - Physical Exam General: Alert, Oriented x3, Cooperative, No apparent distress, - - Obese. Speaking in full sentences. HEENT: Atraumatic, PERRLA, EOMI, Normocephalic, - - No scleral icterus or injection noted. No facial droop appreciated. Oral: Moist Mucosa, No Gingival or Mucosal Lesions/ Ulcerations, - - Good dentition. Neck: Supple, No JVD, No Nodes, Trachea Midline, - - Unable to palpate any fluctuant masses in the neck or parotid areas. Lungs: Clear to auscultation, Normal air movement, No rhonchi, No wheeze, No rales Cardiovascular: Regular rate, Regular Rhythm, Normal S1, Normal S2, No murmurs, No rub noted, No Gallop Abdomen: Bowel Sounds Present, Soft, Non Tender, Non-Distended, Obese Extremities: No clubbing, No cyanosis, No edema, Capillary Refill Less than 3 Seconds Skin: No rashes, No breakdown, - - No Gottron's patches or heliotrope rash appreciated Musculoskeletal: - - Tenderness to palpation of the proximal thighs and arms. Point tenderness at the medial bicep insertion site Lymphatic: No Cervical, Supraclavicular, or Inguinal Adenopathy Neurological: - - Sensation appears to be intact. No facial droop is appreciated. Patient with limited movement of the left lower extremity, but is able to move his right lower extremity to gravity. 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 Limited ability to lift left arm, but can hold right arm against gravity. Psych/Mental Status: Alert and oriented to time, place, person, mood and affect Vital Signs Temp Pulse Resp BP Pulse Ox 35.9 C L 89 18 133/85 H 97 02/04/18 10:45 02/04/18 14:12 02/04/18 14:12 02/04/18 14:12 02/04/18 14:12 Oxygen Delivery Method Room Air Weight: 104.78 kg Body Mass Index (BMI) 35.1 Laboratory Tests 02/04/18 02/04/18 02/04/18 11:30 11:30 11:30 WBC 15.6 H RBC 5.04 Hgb 13.7 Hct 40.6 MCV 80.6 MCH 27.2 MCHC 33.7 RDW 15.4 H RDW Differential 45.0 H Plt Count 210 MPV 9.9 Immature Gran % (Auto) 0.200 Neut % (Auto) 92.5 H Lymph % (Auto) 2.6 L [place] % (Auto) 4.6 Eos % (Auto) 0.0 Baso % (Auto) 0.1 Absolute Neuts (auto) 14.4 H Absolute Lymphs (auto) 0.40 L Total Counted Not Reportable PT 15.2 H INR 1.2 APTT 41.1 H Sodium 140 Potassium 3.9 Chloride 107 Carbon Dioxide 26.0 Anion Gap 7 BUN 14 Creatinine 1.12 Estim Creat Clear Calc 86.52 Est GFR (MDRD) Af Amer 94 Est GFR (MDRD) Non-Af 78 BUN/Creatinine Ratio 12.5 Glucose 138 H Lactic Acid Calcium 9.1 Total Bilirubin 2.10 H AST 8 L ALT 24 Alkaline Phosphatase 71 Total Protein 7.6 Albumin 3.4 Globulin 4.2 Albumin/Globulin Ratio 0.8 L Fld Polynuclear WBCs # Fld Polynuclear WBCs % Fluid Mononuclear WBCs Fld Mononuclear WBCs % CSF Appearance CSF Color CSF WBC CSF RBC CSF Cell Count Tube # CSF Total Cell Counted CSF Comment CSF Glucose CSF Total Protein 02/04/18 02/04/18 02/04/18 11:30 11:45 11:45 WBC RBC Hgb Hct MCV MCH MCHC RDW RDW Differential Plt Count MPV Immature Gran % (Auto) Neut % (Auto) Lymph % (Auto) [place] % (Auto) Eos % (Auto) Baso % (Auto) Absolute Neuts (auto) Absolute Lymphs (auto) Total Counted PT INR APTT Sodium Potassium Chloride Carbon Dioxide Anion Gap BUN Creatinine Estim Creat Clear Calc Est GFR (MDRD) Af Amer Est GFR (MDRD) Non-Af BUN/Creatinine Ratio Glucose Lactic Acid 0.9 Calcium Total Bilirubin AST ALT Alkaline Phosphatase Total Protein Albumin Globulin Albumin/Globulin Ratio Fld Polynuclear WBCs # Fld Polynuclear WBCs % Fluid Mononuclear WBCs Fld Mononuclear WBCs % CSF Appearance CSF Color CSF WBC CSF RBC CSF Cell Count Tube # CSF Total Cell Counted CSF Comment CSF Glucose 58 CSF Total Protein 44.0 02/04/18 11:45 WBC RBC Hgb Hct MCV MCH MCHC RDW RDW Differential Plt Count MPV Immature Gran % (Auto) Neut % (Auto) Lymph % (Auto) [place] % (Auto) Eos % (Auto) Baso % (Auto) Absolute Neuts (auto) Absolute Lymphs (auto) Total Counted PT INR APTT Sodium Potassium Chloride Carbon Dioxide Anion Gap BUN Creatinine Estim Creat Clear Calc Est GFR (MDRD) Af Amer Est GFR (MDRD) Non-Af BUN/Creatinine Ratio Glucose Lactic Acid Calcium Total Bilirubin AST ALT Alkaline Phosphatase Total Protein Albumin Globulin Albumin/Globulin Ratio Fld Polynuclear WBCs # 0.001 Fld Polynuclear WBCs % 50.0 Fluid Mononuclear WBCs 0.001 Fld Mononuclear WBCs % 50.0 CSF Appearance CLEAR CSF Color COLORLESS CSF WBC 0.002 H CSF RBC 0 CSF Cell Count Tube # 4 CSF Total Cell Counted 0.002 H CSF Comment May follow CSF Glucose CSF Total Protein Clinical Impression(s) from Imaging Studies Brain CT 02/04/18 11:11 IMPRESSION: Normal unenhanced CT scan of the brain. Electronically Signed: Royce Bridges DO at 12:52 EDT Tel , Service support , Assessment/Plan Active and Suspected Problems (Last Updated 02/04/18 @ 15:13 by Teressa Anderson) Proximal weakness of extremity (Acute) Crohns disease (Acute) RECOMMENDATIONS: 1. Obtain CPK, ESR and CRP 2. Obtain random cortisol for adrenal insufficiency 3. Obtain tox screen 4. NIF and vital capacities every 4 hours for 24 hours, BiPAP rescue if necessary 5. Toradol IV for pain 6. Await MRI 7. Possibly transfer out of the intensive care unit tomorrow morning IMPRESSIONS: 1. Proximal muscle pain/weakness Unclear etiology at this time. Patient does not appear to have an ascending or descending neuropathy such as Guyon Ochoa? syndrome. Patient's LP was relatively unremarkable. Patient does have some pain on palpation. Will check a TSH for possible thyroid abnormalities. CPK to evaluate for rhabdomyolysis. Will obtain an ANN and ANCA for vasculitis and rheumatologic etiologies. CRP and ESR for evaluation of inflammation state. We will also obtain a tox screen. Patient's blood sugars are within normal limits, so diabetic neuropathy is unlikely. He does not have dermatologic findings consistent with dermatomyositis. Patient does not have any respiratory symptoms consistent with influenza. Patient is not reporting any recent travel , so Chagas disease is unlikely. Patient is not currently on a statin. Patient does not take glucocorticoids at baseline. She does not have any significant electrolyte abnormalities such as hyperkalemia. Can check phosphate in the morning. Low clinical suspicion for respiratory depression. Possibly transfer out of the intensive care unit tomorrow. 2. Crohn's disease Patient does have a history of Crohn's disease treated with Remicade therapy. Patient appears to be doing well at this time. Code Visit Inpatient E&M: 28953 Init Hosp L3
--- NOTE | 2018-02-04 15:59 | PCM.HP.STD ---
Problem List (1) Proximal weakness of extremity Status: Acute (2) Crohns disease Status: Acute History of Present Illness Date of Admission: 02/04/18 Chief Complaint: Muscle pain The patient is a 37 year old M with a h/o crohns and HTN presents with a 2 days h/o of proximal muscle pain and weakness d/t to the pain. He states that he started having pain in his proximal arms and legs and legs. He says that he is weak, he thinks because of the pain. 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 He is on remicade and had his last infusion 8 days ago. He called Dr. Varela who recommended he come to the ED. In the ER his labs were significant for a leukocytosis, his gave him prednisone yesterday. He als had an LP and a CT which were normal. He was admitted to the ICU. Past Medical History Medical History: Medical History (Last Updated 02/04/18 @ 15:13 by Teressa Anderson) Crohns disease K50.90 HTN (hypertension) I10 Allergies ciprofloxacin [From Cipro] Adverse Reaction (Verified 02/03/18 19:36) Other hallucinations Home Medications: Ambulatory Orders Medication Instructions Recorded Losartan Potassium [Cozaar] 50 mg PO DAILY 05/05/17 Budesonide Capsule [Entocort EC] 9 mg PO DAILY 10/06/17 Infliximab-DYYB [Inflectra] 500 mg IV .COMPLEX 02/04/18 Surgical History: colectomy Psychiatric History: No pertinent psych hx Lives: Spouse/ Significant Other Smoking Status: Never smoker Tobacco Use: Non-smoker Alcohol: None Drugs: None - *Family History Paternal History Items: No pertinent history, - - No h/o IBD Review of Systems Constitutional: Denies: Chills, Fever, Weight Change Eyes: Denies: Blurred vision, Vision Change HEENT: Denies: Head Aches, Sinus Congestion, Sinus Drainage Cardiovascular: Denies: Chest Pain, Palpitations Respiratory: Denies: Cough, Shortness of Breath, Shortness of breath at rest, Sputum production Gastrointestinal: Denies: Abdominal Pain, Nausea, Vomiting Genitourinary: Denies: Dysuria Musculoskeletal: Reports: Arm Pain, Leg Pain, Muscle pain, Neck Pain, Shoulder Pain Skin: Denies: Rash, Wounds Neurological: Reports: Focal weakness. Denies: Difficulty swallowing, Numbness, Tingling Psychiatric: Denies: Anxiety, Depression, Homicidal Ideations, Suicidal Ideations Hematologic/ Lymphatic: Denies: Easy Bruising, Easy Bleeding VTE Information - Inpt Only VTE Present on Admission: No Patient Problems: Active and Suspected Problems (Last Updated 02/04/18 @ 15:13 by Teressa Anderson) Proximal weakness of extremity (Acute) Crohns disease (Acute) - Physical Exam General: Alert, Oriented x3, Cooperative, No apparent distress HEENT: Atraumatic, EOMI, Normocephalic Oral: Moist Mucosa Neck: Supple, No JVD Lungs: Clear to auscultation, Normal air movement, No rhonchi, No wheeze, No rales Cardiovascular: Regular rate, Regular Rhythm, Normal S1, Normal S2, No murmurs Abdomen: Soft, Non Tender, Non-Distended, No Hepato-splenomegaly Extremities: No edema, Capillary Refill Less than 3 Seconds Skin: No rashes, No breakdown Musculoskeletal: Tenderness - to palpation of the biceps and quads Neurological: Sensory exam intact to light touch and pain, - - 3/5 strength in his hip flexors b/l, plantar and dorsi flexion ar intact b/l Psych/Mental Status: Normal Affect, Appropriate Vital Signs Temp Pulse Resp BP Pulse Ox 96.6 F L 89 18 133/85 H 97 02/04/18 10:45 02/04/18 14:12 02/04/18 14:12 02/04/18 14:12 02/04/18 14:12 Oxygen Delivery Method Room Air Weight: 231 lb Body Mass Index (BMI) 35.1 Assessment/Plan All Active Problems (Last Updated 02/04/18 @ 15:13 by Teressa Anderson) Proximal weakness of extremity (Acute) Crohns disease (Acute) 1. 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
[2018-02-04] MEDS: Ketorolac 15 MG/ML Vial IV ×2 (16:18→22:36)
[2018-02-04 16:23] LABS: CPK Total, Creatine Kinase 23 U/L (39-308); Thyroid Stim Hormone (TSH) 0.71 uIU/mL (0.358-3.74)
[2018-02-04 18:04] LABS: Erythrocyte Sedimentation Rate 48 mm/hr (0-15)
[2018-02-04 18:41] LABS: Amphetamine Urine VISTA NEGATIVE (<1000 ng/mL); Barbiturate Urine VISTA NEGATIVE (< 200 ng/mL); Benzodiazepine Urine VISTA NEGATIVE (< 200 ng/mL); Cocaine Urine VISTA NEGATIVE (< 300 ng/mL); Ecstacy Urine VISTA NEGATIVE (< 500 ng/mL); Methadone Urine VISTA NEGATIVE (< 300 ng/mL); PCP Urine VISTA NEGATIVE (< 25 ng/mL); THC Urine VISTA NEGATIVE (< 50 ng/mL); Vista UDS pH Range 6
[2018-02-04] MEDS: 0.9% NaCl Peripheral Flush Adult/Peds IV (22:36)
[2018-02-05] VITALS (10 sets, daily range): BP systolic 127–147; BP diastolic 88–96; PULSE 75–141; RESP 14–18; TEMP 36.4–36.7; O2SAT 97–98
[2018-02-05] MEDS: 0.9% NaCl Peripheral Flush Adult/Peds IV ×2 (06:12→10:42)
[2018-02-05 07:18] LABS: Hematocrit 39.6 % (40-54); Hemoglobin 13.3 g/dl (13.0-16.5); Mean Corp Hgb Conc 33.6 g/gl (32-36); Mean Corpuscular Hgb 27.2 pg (27.0-32.0); Platelet Count 220 K/mm3 (150-450); RBC Distribution Width CV 14.9 % (11.6-14.6); RBC Distribution Width SD 43.2 fl (35.1-43.9); Red Blood Count 4.89 M/mm3 (4.6-6.2); White Blood Count 16.3 K/mm3 (4.4-11.0)
[2018-02-05 07:21] LABS: Scan Indicated on CBC? Y/N NO
[2018-02-05 07:30] LABS: Anion Gap 9 (5-15); BUN 22 mg/dL (7-18); BUN/Creat Ratio 20.4 RATIO (10-20); Calcium,Total 9.2 mg/dL (8.5-10.1); Chloride 108 mmol/L (98-107); Creatinine, Serum 1.08 mg/dL (0.70-1.30); EST Glomerular Filtration Rate 81 mL/min (>60); Est Glom Filt Rate - Afr Amer 98 mL/min (>60); Estimated Creatinine Clearance 89.72 ml/min; Glucose 148 mg/dL (74-106); Magnesium 2.5 mg/dL (1.6-2.6); Phosphorus 2.5 mg/dL (2.5-4.9); Potassium 4.1 mmol/L (3.5-5.1); Sodium Level 140 mmol/L (136-145)
[2018-02-05] MEDS: Losartan Potassium 50 MG Tablet PO (08:01)
[2018-02-05] MEDS: Enoxaparin 40 MG/0.4 ML Syringe SC (08:02)
--- NOTE | 2018-02-05 09:26 | PCM.PN.INT ---
Subjective: Patient transferred out of the intensive care unit overnight. Patient did have his MRIs without complication. Patient reports significant improvement in proximal muscle weakness/pain compared to yesterday. Patient is able to lift his left arm freely, but has some limitation of his right upper extremity. Patient reports very little difficulty with the lower extremities. Objective: MRI results were reviewed and showed degenerative disc disease with some severe compression at C6-7. General: Alert, Oriented x3, Cooperative, No apparent distress, - - Appears stated age. Speaking in full sentences. HEENT: Atraumatic, PERRLA, EOMI, Normocephalic, - - No scleral icterus or injection noted. Oral: Moist Mucosa, No Gingival or Mucosal Lesions/ Ulcerations Neck: Supple, No JVD, No Nodes, Trachea Midline Lungs: Clear to auscultation, Normal air movement, No rhonchi, No wheeze, No rales Cardiovascular: Regular rate, Regular Rhythm, Normal S1, Normal S2, No murmurs, No rub noted, No Gallop Abdomen: Bowel Sounds Present, Soft, Non Tender, Non-Distended, Obese Extremities: No clubbing, No cyanosis, No edema, Capillary Refill Less than 3 Seconds Skin: No rashes, No breakdown Musculoskeletal: No Tenderness to Palpation of Joints or Extremities Lymphatic: No Cervical, Supraclavicular, or Inguinal Adenopathy Neurological: Cranial nerves II-XII grossly intact, Neuro grossly intact, - - Slight limitation in right upper extremity movement, but vastly improved from previous Psych/Mental Status: Alert and oriented to time, place, person, mood and affect Vital Signs Temp Pulse Resp BP Pulse Ox 36.7 C 93 18 146/96 H 97 02/05/18 07:55 02/05/18 07:55 02/05/18 07:55 02/05/18 07:55 02/05/18 07:55 Oxygen Delivery Method Room Air Weight: 102.6 kg Body Mass Index (BMI) 35.1 Intake and Output for Last 24 Hours 02/03/18 02/04/18 02/05/18 23:59 23:59 23:59 Intake Total 500 / 500 120 / 120 Output Total 700 / 700 Balance -200 / -200 120 / 120 Labs (Last 48 Hours) 02/04/18 02/04/18 02/04/18 17:00 17:00 17:00 WBC RBC Hgb Hct MCV MCH MCHC RDW RDW Differential Plt Count MPV Sodium Potassium Chloride Carbon Dioxide Anion Gap BUN Creatinine Estim Creat Clear Calc Est GFR (MDRD) Af Amer Est GFR (MDRD) Non-Af BUN/Creatinine Ratio Glucose Calcium Phosphorus Magnesium C-React Prot Ext Range Cortisol 8.10 Urine Opiates Screen Urine Methadone Screen Ur Barbiturates Screen Ur Phencyclidine Scrn Ur Amphetamines Screen U Methamphetamin-MDMA U Benzodiazepines Scrn Urine Cocaine Screen U Cannabinoids Screen Ur Drug Screen Comment ANN Screen Pending c-ANCA Antibody Pending p-ANCA Antibody Pending MICHELLE-1 Antibody Pending SS-A/Ro IgG Antibody Pending SS-B/La IgG Antibody Pending Sm (Hughes) Antibody Pending SPINE SURGEON Antibody Pending Scl-70 Scleroderma Ab Pending Double Strand DNA Ab Pending Centromere B Antibody Pending 02/04/18 02/04/18 02/05/18 17:00 17:00 06:45 WBC 16.3 H RBC 4.89 Hgb 13.3 Hct 39.6 L MCV 81.0 MCH 27.2 MCHC 33.6 RDW 14.9 H RDW Differential 43.2 Plt Count 220 MPV 10.0 Sodium Potassium Chloride Carbon Dioxide Anion Gap BUN Creatinine Estim Creat Clear Calc Est GFR (MDRD) Af Amer Est GFR (MDRD) Non-Af BUN/Creatinine Ratio Glucose Calcium Phosphorus Magnesium C-React Prot Ext Range 225.00 H Cortisol Urine Opiates Screen POSITIVE H Urine Methadone Screen NEGATIVE Ur Barbiturates Screen NEGATIVE Ur Phencyclidine Scrn NEGATIVE Ur Amphetamines Screen NEGATIVE U Methamphetamin-MDMA NEGATIVE U Benzodiazepines Scrn NEGATIVE Urine Cocaine Screen NEGATIVE U Cannabinoids Screen NEGATIVE Ur Drug Screen Comment ANN Screen c-ANCA Antibody p-ANCA Antibody MICHELLE-1 Antibody SS-A/Ro IgG Antibody SS-B/La IgG Antibody Sm (Hughes) Antibody SPINE SURGEON Antibody Scl-70 Scleroderma Ab Double Strand DNA Ab Centromere B Antibody 02/05/18 06:45 WBC RBC Hgb Hct MCV MCH MCHC RDW RDW Differential Plt Count MPV Sodium 140 Potassium 4.1 Chloride 108 H Carbon Dioxide 23.0 Anion Gap 9 BUN 22 H Creatinine 1.08 Estim Creat Clear Calc 89.72 Est GFR (MDRD) Af Amer 98 Est GFR (MDRD) Non-Af 81 BUN/Creatinine Ratio 20.4 H Glucose 148 H Calcium 9.2 Phosphorus 2.5 Magnesium 2.5 C-React Prot Ext Range Cortisol Urine Opiates Screen Urine Methadone Screen Ur Barbiturates Screen Ur Phencyclidine Scrn Ur Amphetamines Screen U Methamphetamin-MDMA U Benzodiazepines Scrn Urine Cocaine Screen U Cannabinoids Screen Ur Drug Screen Comment ANN Screen c-ANCA Antibody p-ANCA Antibody MICHELLE-1 Antibody SS-A/Ro IgG Antibody SS-B/La IgG Antibody Sm (Hughes) Antibody SPINE SURGEON Antibody Scl-70 Scleroderma Ab Double Strand DNA Ab Centromere B Antibody Clinical Impression(s) from Imaging Studies Brain CT 02/04/18 11:11 IMPRESSION: Normal unenhanced CT scan of the brain. Electronically Signed: Royce Bridges DO at 12:52 EDT Tel , Service support , Cervical Spine MRI 02/04/18 15:34 IMPRESSION: Multilevel degenerative disc disease and degenerative arthropathy of the cervical spine with neural foraminal narrowing and potential nerve impingement, as described. Electronically Signed: Alicia Jain MD at 19:23 EDT , Service support , Lumbar Spine MRI 02/04/18 15:34 IMPRESSION: Mild multilevel degenerative disc disease and degenerative arthropathy of the lumbar spine, as described. Electronically Signed: Alicia Jain MD at 19:39 EDT , Service support , Medical Necessity - Tobacco Use Smoking Status: Never smoker Tobacco Use: Non-smoker Assessment/Plan All Active Problems (Last Updated 02/04/18 @ 15:13 by Teressa Anderson) Proximal weakness of extremity (Acute) Crohns disease (Acute) RECOMMENDATIONS: 1. Await rheumatologic workup 2. Defer to neurology on additional workup 3. Okay to discontinue vital capacity and negative inspiratory force measurements. 4. Hemodynamically stable on room air. Will sign off from a critical care perspective IMPRESSIONS: 1. Proximal muscle pain/weakness Patient significantly improved compared to previous. Unclear if this is secondary to the Toradol therapy as response to high-dose steroids would not be expected this rapidly. Patient did have elevated inflammatory markers, but it is unclear if this is secondary to the acute condition versus underlying Crohn's disease. Patient's vital capacity and negative inspiratory force are staying within normal limits for over 24 hours. Patient able to move around the bed without any dyspnea. Okay to discontinue serial monitoring. Patient does have a rheumatologic workup currently pending. This was initiated prior to the first dose of Solu-Medrol. 2. Crohn's disease Patient does have a history of Crohn's disease treated with Remicade therapy. Patient appears to be doing well at this time. Code Visit Inpatient E&M: 74215 Subs Hosp L2
--- NOTE | 2018-02-05 09:32 | PN_ITS ---
Subjective: Patient transferred out of the intensive care unit overnight. Patient did have his MRIs without complication. Patient reports significant improvement in proximal muscle weakness/pain compared to yesterday. Patient is able to lift his left arm freely, but has some limitation of his right upper extremity. Patient reports very little difficulty with the lower extremities. Objective: MRI results were reviewed and showed degenerative disc disease with some severe compression at C6-7. General: Alert, Oriented x3, Cooperative, No apparent distress, - - Appears stated age. Speaking in full sentences. HEENT: Atraumatic, PERRLA, EOMI, Normocephalic, - - No scleral icterus or injection noted. Oral: Moist Mucosa, No Gingival or Mucosal Lesions/ Ulcerations Neck: Supple, No JVD, No Nodes, Trachea Midline Lungs: Clear to auscultation, Normal air movement, No rhonchi, No wheeze, No rales Cardiovascular: Regular rate, Regular Rhythm, Normal S1, Normal S2, No murmurs, No rub noted, No Gallop Abdomen: Bowel Sounds Present, Soft, Non Tender, Non-Distended, Obese Extremities: No clubbing, No cyanosis, No edema, Capillary Refill Less than 3 Seconds Skin: No rashes, No breakdown Musculoskeletal: No Tenderness to Palpation of Joints or Extremities Lymphatic: No Cervical, Supraclavicular, or Inguinal Adenopathy Neurological: Cranial nerves II-XII grossly intact, Neuro grossly intact, - - Slight limitation in right upper extremity movement, but vastly improved from previous Psych/Mental Status: Alert and oriented to time, place, person, mood and affect Vital Signs Temp Pulse Resp BP Pulse Ox 36.7 C 93 18 146/96 H 97 02/05/18 07:55 02/05/18 07:55 02/05/18 07:55 02/05/18 07:55 02/05/18 07:55 Oxygen Delivery Method Room Air Weight: 102.6 kg Body Mass Index (BMI) 35.1 Intake and Output for Last 24 Hours 02/03/18 02/04/18 02/05/18 23:59 23:59 23:59 Intake Total 500 / 500 120 / 120 Output Total 700 / 700 Balance -200 / -200 120 / 120 Labs (Last 48 Hours) 02/04/18 02/04/18 02/04/18 17:00 17:00 17:00 WBC RBC Hgb Hct MCV MCH MCHC RDW RDW Differential Plt Count MPV Sodium Potassium Chloride Carbon Dioxide Anion Gap BUN Creatinine Estim Creat Clear Calc Est GFR (MDRD) Af Amer Est GFR (MDRD) Non-Af BUN/Creatinine Ratio Glucose Calcium Phosphorus Magnesium C-React Prot Ext Range Cortisol 8.10 Urine Opiates Screen Urine Methadone Screen Ur Barbiturates Screen Ur Phencyclidine Scrn Ur Amphetamines Screen U Methamphetamin-MDMA U Benzodiazepines Scrn Urine Cocaine Screen U Cannabinoids Screen Ur Drug Screen Comment ANN Screen Pending c-ANCA Antibody Pending p-ANCA Antibody Pending MICHELLE-1 Antibody Pending SS-A/Ro IgG Antibody Pending SS-B/La IgG Antibody Pending Sm (Hughes) Antibody Pending CASTING MACHINE SET UP OPERATOR Antibody Pending Scl-70 Scleroderma Ab Pending Double Strand DNA Ab Pending Centromere B Antibody Pending 02/04/18 02/04/18 02/05/18 17:00 17:00 06:45 WBC 16.3 H RBC 4.89 Hgb 13.3 Hct 39.6 L MCV 81.0 MCH 27.2 MCHC 33.6 RDW 14.9 H RDW Differential 43.2 Plt Count 220 MPV 10.0 Sodium Potassium Chloride Carbon Dioxide Anion Gap BUN Creatinine Estim Creat Clear Calc Est GFR (MDRD) Af Amer Est GFR (MDRD) Non-Af BUN/Creatinine Ratio Glucose Calcium Phosphorus Magnesium C-React Prot Ext Range 225.00 H Cortisol Urine Opiates Screen POSITIVE H Urine Methadone Screen NEGATIVE Ur Barbiturates Screen NEGATIVE Ur Phencyclidine Scrn NEGATIVE Ur Amphetamines Screen NEGATIVE U Methamphetamin-MDMA NEGATIVE U Benzodiazepines Scrn NEGATIVE Urine Cocaine Screen NEGATIVE U Cannabinoids Screen NEGATIVE Ur Drug Screen Comment ANN Screen c-ANCA Antibody p-ANCA Antibody MICHELLE-1 Antibody SS-A/Ro IgG Antibody SS-B/La IgG Antibody Sm (Hughes) Antibody CASTING MACHINE SET UP OPERATOR Antibody Scl-70 Scleroderma Ab Double Strand DNA Ab Centromere B Antibody 02/05/18 06:45 WBC RBC Hgb Hct MCV MCH MCHC RDW RDW Differential Plt Count MPV Sodium 140 Potassium 4.1 Chloride 108 H Carbon Dioxide 23.0 Anion Gap 9 BUN 22 H Creatinine 1.08 Estim Creat Clear Calc 89.72 Est GFR (MDRD) Af Amer 98 Est GFR (MDRD) Non-Af 81 BUN/Creatinine Ratio 20.4 H Glucose 148 H Calcium 9.2 Phosphorus 2.5 Magnesium 2.5 C-React Prot Ext Range Cortisol Urine Opiates Screen Urine Methadone Screen Ur Barbiturates Screen Ur Phencyclidine Scrn Ur Amphetamines Screen U Methamphetamin-MDMA U Benzodiazepines Scrn Urine Cocaine Screen U Cannabinoids Screen Ur Drug Screen Comment ANN Screen c-ANCA Antibody p-ANCA Antibody MICHELLE-1 Antibody SS-A/Ro IgG Antibody SS-B/La IgG Antibody Sm (Hughes) Antibody CASTING MACHINE SET UP OPERATOR Antibody Scl-70 Scleroderma Ab Double Strand DNA Ab Centromere B Antibody Clinical Impression(s) from Imaging Studies Brain CT 02/04/18 11:11 IMPRESSION: Normal unenhanced CT scan of the brain. Electronically Signed: Royce Bridges DO at 12:52 EDT Tel , Service support , Cervical Spine MRI 02/04/18 15:34 IMPRESSION: Multilevel degenerative disc disease and degenerative arthropathy of the cervical spine with neural foraminal narrowing and potential nerve impingement, as described. Electronically Signed: Alicia Jain MD at 19:23 EDT , Service support , Lumbar Spine MRI 02/04/18 15:34 IMPRESSION: Mild multilevel degenerative disc disease and degenerative arthropathy of the lumbar spine, as described. Electronically Signed: Alicia Jain MD at 19:39 EDT , Service support , Medical Necessity - Tobacco Use Smoking Status: Never smoker Tobacco Use: Non-smoker Assessment/Plan All Active Problems (Last Updated 02/04/18 @ 15:13 by Teressa Anderson) Proximal weakness of extremity (Acute) Crohns disease (Acute) RECOMMENDATIONS: 1. Await rheumatologic workup 2. Defer to neurology on additional workup 3. Okay to discontinue vital capacity and negative inspiratory force measurements. 4. Hemodynamically stable on room air. Will sign off from a critical care perspective IMPRESSIONS: 1. Proximal muscle pain/weakness Patient significantly improved compared to previous. Unclear if this is secondary to the Toradol therapy as response to high-dose steroids would not be expected this rapidly. Patient did have elevated inflammatory markers, but it is unclear if this is secondary to the acute condition versus underlying Crohn' s disease. Patient's vital capacity and negative inspiratory force are staying within normal limits for over 24 hours. Patient able to move around the bed without any dyspnea. Okay to discontinue serial monitoring. Patient does have a rheumatologic workup currently pending. This was initiated prior to the first dose of Solu-Medrol. 2. Crohn's disease Patient does have a history of Crohn's disease treated with Remicade therapy. Patient appears to be doing well at this time. Code Visit Inpatient E&M: 51541 Subs Hosp L2
--- NOTE | 2018-02-05 10:00 | CASEMGMT ---
CM INITIAL ASSESSMENT: Home: Patient states he lives in a two story home with his and two kids. There are a lot of steps, but he states he has first floor setup. HHS/Aides: Denies DME: Denies Home Oxygen: Denies Pharmacy: [facility] [place] Advance Directives: Patient states his , Shikha Chapa, is his medical POA. He states these documents are not on file. Encouraged patient to have a copy brought to [facility] and placed in [facility]. DC Plan: Anticipate Home. CM will continue to follow for safe and effective discharge planning.
[2018-02-05] MEDS: Famotidine 20 MG Tablet PO (10:46)
--- NOTE | 2018-02-05 13:19 | NURSING ---
Pt's HR 140 when up to bathroom. When pt returned to bed, pt denies complaints/symptoms when HR elevated. HR 100-110's while in bed. States he does not have a history of high heart rate that he is aware of, but states his HR is usually low 100's when getting Remicade infusion. Denies complaints at this time.
--- NOTE | 2018-02-05 14:05 | PCM.PN.HOSP ---
Patient Problems: Active and Suspected Problems (Last Updated 02/04/18 @ 15:13 by Teressa Anderson) Proximal weakness of extremity (Acute) Crohns disease (Acute) Subjective: Patient was seen and examined. He appears to have improved. No more muscle weakness. Able to walk around the room. He has no breathing problems. He is on high dose steroids. 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 He denies fever or chills or nausea or vomiting. Vitals/I&O's: Vital Signs Temp Pulse Resp BP Pulse Ox 98.0 F 105 H 18 146/96 H 97 02/05/18 07:55 02/05/18 13:05 02/05/18 07:55 02/05/18 07:55 02/05/18 07:55 Oxygen Delivery Method Room Air Weight: 102.6 kg Body Mass Index (BMI) 35.1 Intake and Output for Last 24 Hours 02/03/18 02/04/18 02/05/18 23:59 23:59 23:59 Intake Total 500 / 500 460 / 460 Output Total 700 / 700 Balance -200 / -200 460 / 460 General: Alert, Oriented x3, Cooperative, - - Obese HEENT: Atraumatic, PERRLA, EOMI, Normocephalic Oral: Moist Mucosa Neck: Supple, No JVD, Negative Carotid Bruits Lungs: Clear to auscultation, Normal air movement Cardiovascular: Regular rate, Regular Rhythm, Normal S1, Normal S2, No murmurs Abdomen: Bowel Sounds Present, Soft, Non Tender, Non-Distended, No Hepato-splenomegaly Extremities: No edema Skin: No rashes, No breakdown Musculoskeletal: No Tenderness to Palpation of Joints or Extremities Lymphatic: No Cervical, Supraclavicular, or Inguinal Adenopathy Neurological: Cranial nerves II-XII grossly intact, Neuro grossly intact Psych/Mental Status: Normal Affect, Appropriate Laboratory Results 02/04/18 17:00: ANN Screen Pending, MICHELLE-1 Antibody Pending, SS-A/Ro IgG Antibody Pending, SS-B/La IgG Antibody Pending, Sm (Hughes) Antibody Pending, RESTAURANT DISTRICT MANAGER Antibody Pending, Scl-70 Scleroderma Ab Pending, Double Strand DNA Ab Pending, Centromere B Antibody Pending 02/04/18 17:00: c-ANCA Antibody Pending, p-ANCA Antibody Pending 02/04/18 17:00: Cortisol 8.10 02/04/18 17:00: Urine Opiates Screen POSITIVE H, Urine Methadone Screen NEGATIVE, Ur Barbiturates Screen NEGATIVE, Ur Phencyclidine Scrn NEGATIVE, Ur Amphetamines Screen NEGATIVE, U Methamphetamin-MDMA NEGATIVE, U Benzodiazepines Scrn NEGATIVE, Urine Cocaine Screen NEGATIVE, U Cannabinoids Screen NEGATIVE, Ur Drug Screen Comment 02/04/18 17:00: C-React Prot Ext Range 225.00 H 02/05/18 06:45: WBC 16.3 H, RBC 4.89, Hgb 13.3, Hct 39.6 L, MCV 81.0, MCH 27.2, MCHC 33.6, RDW 14.9 H, RDW Differential 43.2, Plt Count 220, MPV 10.0 02/05/18 06:45: Sodium 140, Potassium 4.1, Chloride 108 H, Carbon Dioxide 23.0, Anion Gap 9, BUN 22 H, Creatinine 1.08, Estim Creat Clear Calc 89.72, Est GFR (MDRD) Af Amer 98, Est GFR (MDRD) Non-Af 81, BUN/Creatinine Ratio 20.4 H, Glucose 148 H, Calcium 9.2, Phosphorus 2.5, Magnesium 2.5 Current Medications Budesonide (Entocort Ec) 9 mg PO DAILY [facility] Last Admin: 02/05/18 08:01 Dose: 9 mg Enoxaparin Sodium (Lovenox) 40 mg SC DAILY@1000 [facility] Last Admin: 02/05/18 08:02 Dose: 40 mg Famotidine (Pepcid) 20 mg PO BID [facility] Last Admin: 02/05/18 10:46 Dose: 20 mg Methylprednisolone 1,000 mg/ (Sodium Chloride) 116 mls @ 100 mls/hr IV DAILY [facility] Stop: 02/08/18 11:10 Last Admin: 02/05/18 10:42 Dose: 100 mls/hr Ketorolac Tromethamine (Toradol) 15 mg IV Q6H PRN PRN PRN Reason: PAIN Stop: 02/09/18 15:51 Last Admin: 02/04/18 22:36 Dose: 15 mg Losartan Potassium (Cozaar) 50 mg PO DAILY [facility] Last Admin: 02/05/18 08:01 Dose: 50 mg Magnesium Hydroxide (Milk Of Magnesia) 30 ml PO DAILY PRN PRN PRN Reason: Constipation Non-Formulary Medication (Infliximab-Dyyb) 500 mg IV .COMPLEX LIZBETH Sodium Chloride () 5 - 30 ml IV UD PRN PRN Reason: SALINE FLUSH Last Admin: 02/05/18 10:42 Dose: 20 ml Medical Necessity - Tobacco Use Smoking Status: Never smoker Tobacco Use: Non-smoker Assessment/Plan All Active Problems (Last Updated 02/04/18 @ 15:13 by Teressa Anderson) Proximal weakness of extremity (Acute) Crohns disease (Acute) 37 y/o male with PMHx of hypertension, Crohn's disease comes in with complains of muscle pain and inability to wear his clothes. 1. Proximal muscle weakness, with concern for possible GBS, improved with high dose steroids, CRP elevated, CK normal, CSF negative, rheumatological work-up is pending, MRI of cervical and lumbar spine shows degenerative disc disease Neurology and Pulmonology consulted 2. Leucocytosis, elevated secondary to steroids, will need to be monitored. 3. Crohn's disease, on budesonide 3. Hypertension, fairly controlled on Losartan 4. DVT PPx- Lovenox SC Code Visit Inpatient E&M: 36629 Subs Hosp L2
--- NOTE | 2018-02-05 14:45 | PCM.DC ---
- Discharge Diagnoses Current Active Problems: Current Active and Chronic Problems (Last Updated 02/04/18 @ 15:13 by Teressa Anderson) Proximal weakness of extremity (Acute) Crohns disease (Acute) Reason(s) for Visit for Discharge Instructions: Weakness You will use the following diet at home:: Regular Your food should be the consistency of: Regular Your liquids should be the consistency of: Regular/Thin Discharge Activity: Return to Normal Activity Allergies/Adverse Reactions: Allergies ciprofloxacin [From Cipro] Adverse Reaction (Verified 02/03/18 19:36) Other hallucinations Medications to take at Discharge Losartan Potassium [Cozaar] 50 mg PO DAILY 05/05/17 Budesonide Capsule [Entocort EC] 9 mg PO DAILY 10/06/17 Infliximab-DYYB [Inflectra] 500 mg IV .COMPLEX 02/04/18 Primary Care Physician: Everett Dupree,Out of [NON-STAFF] - Please follow up with your Primary Care Physician in: within 2 weeks Test Results: Test results from this visit will be discussed in further detail at your follow-up appointment, if applicable.
--- NOTE | 2018-02-05 14:56 | PCM.DC ---
- Discharge Diagnoses Current Active Problems: Current Active and Chronic Problems (Last Updated 02/04/18 @ 15:13 by Teressa Anderson) Proximal weakness of extremity (Acute) Crohns disease (Acute) Reason(s) for Visit for Discharge Instructions: Weakness You will use the following diet at home:: Regular Your food should be the consistency of: Regular Your liquids should be the consistency of: Regular/Thin Discharge Activity: Return to Normal Activity Additional Instructions: Continue on your regular medications. Discuss with your kitchen food assembler about the use of Remicade. Continue to remain active. Allergies/Adverse Reactions: Allergies ciprofloxacin [From Cipro] Adverse Reaction (Verified 02/03/18 19:36) Other hallucinations Medications to take at Discharge Losartan Potassium [Cozaar] 50 mg PO DAILY 05/05/17 Budesonide Capsule [Entocort EC] 9 mg PO DAILY 10/06/17 Infliximab-DYYB [Inflectra] 500 mg IV .COMPLEX 02/04/18 Orders to be completed after discharge: CBC W/Diff, Automated Location: Laboratory Primary Care Physician: [facility] Doctor,Out of [NON-STAFF] - Please follow up with your Primary Care Physician in: within 2 weeks Test Results: Test results from this visit will be discussed in further detail at your follow-up appointment, if applicable. Please Follow Up With: Jus Varela MD When: within 2 weeks Proposed Discharge Date: 02/05/18
--- NOTE | 2018-02-05 15:00 | DCINST_ITS ---
- Discharge Diagnoses Current Active Problems: Current Active and Chronic Problems (Last Updated 02/04/18 @ 15:13 by Teressa Anderson) Proximal weakness of extremity (Acute) Crohns disease (Acute) Reason(s) for Visit for Discharge Instructions: Weakness You will use the following diet at home:: Regular Your food should be the consistency of: Regular Your liquids should be the consistency of: Regular/Thin Discharge Activity: Return to Normal Activity Additional Instructions: Continue on your regular medications. Discuss with your last picker about the use of Remicade. Continue to remain active. Allergies/Adverse Reactions: Allergies ciprofloxacin [From Cipro] Adverse Reaction (Verified 02/03/18 19:36) Other hallucinations Medications to take at Discharge Losartan Potassium [Cozaar] 50 mg PO DAILY 05/05/17 Budesonide Capsule [Entocort EC] 9 mg PO DAILY 10/06/17 Infliximab-DYYB [Inflectra] 500 mg IV .COMPLEX 02/04/18 Orders to be completed after discharge: CBC W/Diff, Automated Location: Laboratory Primary Care Physician: [facility] Doctor,Out of [NON-STAFF] - Please follow up with your Primary Care Physician in: within 2 weeks Test Results: Test results from this visit will be discussed in further detail at your follow- up appointment, if applicable. Please Follow Up With: Jus Varela MD When: within 2 weeks Proposed Discharge Date: 02/05/18
--- NOTE | 2018-02-05 15:00 | PCM.DC.SUM ---
Discharge Date and Diagnosis Date of Admission: 02/04/18 Date of Discharge: 02/05/18 - Primary Discharge Diagnosis Active and Suspected Problems (Last Updated 02/04/18 @ 15:13 by Teressa Anderson) Proximal weakness of extremity (Acute) Crohns disease (Acute) Side effects from Remicade - Secondary Discharge Diagnosis Crohn's disease Hypertension Hospital Course and Treatment Imaging Results: Clinical Impression(s) from Imaging Studies Brain CT 02/04/18 11:11 IMPRESSION: Normal unenhanced CT scan of the brain. Electronically Signed: Royce Bridges DO at 12:52 EDT Tel , Service support , Cervical Spine MRI 02/04/18 15:34 IMPRESSION: Multilevel degenerative disc disease and degenerative arthropathy of the cervical spine with neural foraminal narrowing and potential nerve impingement, as described. Electronically Signed: Alicia Jain MD at 19:23 EDT , Service support , Lumbar Spine MRI 02/04/18 15:34 IMPRESSION: Mild multilevel degenerative disc disease and degenerative arthropathy of the lumbar spine, as described. Electronically Signed: Alicia Jain MD at 19:39 EDT , Service support , Neurology Critical care Operations: None Procedures: None Summary of Care Provided: 37 y/o male with PMHx of hypertension, Crohn's disease comes in with complains of muscle pain, weakness and inability to wear his clothes ongoing for 2 days. And was seen by neurology and consideration was made for possible GBS. Critical care was also consulted. 1. Proximal muscle weakness, with concern for possible GBS, likely secondary to Remicade treatment Nerve conduction studies were negative, started on high dose steroids, CRP elevated, CK normal, CSF negative, rheumatological work-up pending at time of discharge, Lyme disease, West Nile tests were pending. MRI of cervical and lumbar spine shows multilevel degenerative disc disease, severe in C6-C7 Neurology and Pulmonology consulted. Started on high-dose steroids with much improvement. Received 2 days of 1 g Solu-Medrol. His pain and weakness resolved. Able to ambulate in his room. Lung function evaluation was normal. Patient was discharged. Advised to follow-up with his wall cleaner to discuss other options other than Remicade. Asked to follow-up with her primary care doctor and neurologist for further workup 2. Leucocytosis, elevated secondary to steroids, need to repeat CBCD within a week 3. Crohn's disease, on budesonide 3. Hypertension, on Losartan Discharge Diet: Low fat/ Low Cholesterol, 2000 mg Sodium Diet Discharge Activity: Return to Normal Activity Home Medications: Medications to take at Discharge Losartan Potassium [Cozaar] 50 mg PO DAILY 05/05/17 Budesonide Capsule [Entocort EC] 9 mg PO DAILY 10/06/17 Infliximab-DYYB [Inflectra] 500 mg IV .COMPLEX 02/04/18 Other Amb Orders: CBC W/Diff, Automated Location: Laboratory Primary Care Physician: [facility] Doctor,Out of [NON-STAFF] - Please follow up with your Primary Care Physician in: within 2 weeks Please Follow Up With: Jus Varela MD When: within 2 weeks Disposition: Home Minutes spent on discharge:: 40 Patient Condition:: Stable Medical Necessity - Tobacco Use Smoking Status: Never smoker Tobacco Use: Non-smoker Meaningful Use Info Meaningful Use Diagnoses (Choose all that apply): None applicable Code Visit Inpatient E&M: 07681 Disch Hosp
--- NOTE | 2018-02-05 15:19 | PCM.PN.NEU ---
Patient Problems: Active and Suspected Problems (Last Updated 02/04/18 @ 15:13 by Teressa Anderson) Proximal weakness of extremity (Acute) Crohns disease (Acute) Subjective: No issues overnight per patient. Per patient after starting Solumedrol his symptoms have improved and he is back to his baseline, is requesting to be discharged. MRI C spine reviewed- reported to show multilevel degenerative disc disease with severe foraminal narrowing with potential nerve impingement at C3-C4, C4-C5, C6-C7, and right central broad disc protrusion at C6-C7 and MRI L spine reported to show multilevel degenerative changes. Per patient he was admitted acute onset pain in both UE/shoulders followed by severe pain in both thigh and legs, restricting his ability to moves his extremities, along with severe weakness as documented, is on Remicade for Chron's disease, since admission GBS was ruled out, patient also has normal reflexes on examination, had normal NCS and normal CSF studies. - Physical Exam General: Alert HEENT: Normocephalic Neck: Supple Lungs: Normal air movement Cardiovascular: Normal S1, Normal S2 Abdomen: Bowel Sounds Present Extremities: No cyanosis Musculoskeletal: No Tenderness to Palpation of Joints or Extremities Neurological: - - consious, alert, CN 2-12 grossly intact, power 5/5 both UE/LE, plantars B/L flexor, Reflexes +2 B/L B/S/T/K/A, no sensory loss, no cerebellar signs, gait deferred. Psych/Mental Status: Normal Affect Vital Signs Temp Pulse Resp BP Pulse Ox 98.1 F 112 H 16 147/93 H 97 02/05/18 14:59 02/05/18 14:59 02/05/18 14:59 02/05/18 14:59 02/05/18 14:59 Oxygen Delivery Method Room Air Weight: 102.6 kg Body Mass Index (BMI) 35.1 Intake and Output for Last 24 Hours 02/03/18 02/04/18 02/05/18 23:59 23:59 23:59 Intake Total 500 / 500 460 / 460 Output Total 700 / 700 Balance -200 / -200 460 / 460 Laboratory Tests Past 24 Hrs 02/04/18 02/04/18 02/04/18 17:00 17:00 17:00 WBC RBC Hgb Hct MCV MCH MCHC RDW RDW Differential Plt Count MPV Sodium Potassium Chloride Carbon Dioxide Anion Gap BUN Creatinine Estim Creat Clear Calc Est GFR (MDRD) Af Amer Est GFR (MDRD) Non-Af BUN/Creatinine Ratio Glucose Calcium Phosphorus Magnesium C-React Prot Ext Range Cortisol 8.10 Urine Opiates Screen Urine Methadone Screen Ur Barbiturates Screen Ur Phencyclidine Scrn Ur Amphetamines Screen U Methamphetamin-MDMA U Benzodiazepines Scrn Urine Cocaine Screen U Cannabinoids Screen Ur Drug Screen Comment ANN Screen Pending c-ANCA Antibody Pending p-ANCA Antibody Pending MICHELLE-1 Antibody Pending SS-A/Ro IgG Antibody Pending SS-B/La IgG Antibody Pending Sm (Hughes) Antibody Pending SYSTEM CONTROLLER Antibody Pending Scl-70 Scleroderma Ab Pending Double Strand DNA Ab Pending Centromere B Antibody Pending 02/04/18 02/04/18 02/05/18 17:00 17:00 06:45 WBC 16.3 H RBC 4.89 Hgb 13.3 Hct 39.6 L MCV 81.0 MCH 27.2 MCHC 33.6 RDW 14.9 H RDW Differential 43.2 Plt Count 220 MPV 10.0 Sodium Potassium Chloride Carbon Dioxide Anion Gap BUN Creatinine Estim Creat Clear Calc Est GFR (MDRD) Af Amer Est GFR (MDRD) Non-Af BUN/Creatinine Ratio Glucose Calcium Phosphorus Magnesium C-React Prot Ext Range 225.00 H Cortisol Urine Opiates Screen POSITIVE H Urine Methadone Screen NEGATIVE Ur Barbiturates Screen NEGATIVE Ur Phencyclidine Scrn NEGATIVE Ur Amphetamines Screen NEGATIVE U Methamphetamin-MDMA NEGATIVE U Benzodiazepines Scrn NEGATIVE Urine Cocaine Screen NEGATIVE U Cannabinoids Screen NEGATIVE Ur Drug Screen Comment ANN Screen c-ANCA Antibody p-ANCA Antibody MICHELLE-1 Antibody SS-A/Ro IgG Antibody SS-B/La IgG Antibody Sm (Hughes) Antibody SYSTEM CONTROLLER Antibody Scl-70 Scleroderma Ab Double Strand DNA Ab Centromere B Antibody 02/05/18 06:45 WBC RBC Hgb Hct MCV MCH MCHC RDW RDW Differential Plt Count MPV Sodium 140 Potassium 4.1 Chloride 108 H Carbon Dioxide 23.0 Anion Gap 9 BUN 22 H Creatinine 1.08 Estim Creat Clear Calc 89.72 Est GFR (MDRD) Af Amer 98 Est GFR (MDRD) Non-Af 81 BUN/Creatinine Ratio 20.4 H Glucose 148 H Calcium 9.2 Phosphorus 2.5 Magnesium 2.5 C-React Prot Ext Range Cortisol Urine Opiates Screen Urine Methadone Screen Ur Barbiturates Screen Ur Phencyclidine Scrn Ur Amphetamines Screen U Methamphetamin-MDMA U Benzodiazepines Scrn Urine Cocaine Screen U Cannabinoids Screen Ur Drug Screen Comment ANN Screen c-ANCA Antibody p-ANCA Antibody MICHELLE-1 Antibody SS-A/Ro IgG Antibody SS-B/La IgG Antibody Sm (Hughes) Antibody SYSTEM CONTROLLER Antibody Scl-70 Scleroderma Ab Double Strand DNA Ab Centromere B Antibody Medical Necessity - Tobacco Use Smoking Status: Never smoker Tobacco Use: Non-smoker Assessment/Plan All Active Problems (Last Updated 02/04/18 @ 15:13 by Teressa Anderson) Proximal weakness of extremity (Acute) Crohns disease (Acute) 37 yr CM with PMH Crohn's disease on Remicade admitted with acute onset UE pain and LE pain, with decreased range of motion and weakness. symptoms improved after Solumedrol and analgesic management. Impression Likely Remicade induced adverse effects vs viral prodrome. Cervical radiculopathy/stenosis-DJD Plan -Patient is back to his baseline at present, denies any further pain and has normal neurological examination at present. -Check Lyme Ab and west Nile ab -Labs reviewed -Recommend spine surgery consult -Patient counseled to follow up with his GI doctor and avoid Remicade in future for Crohn's disease if possible -PT/OT -GI/DVT prophylaxis -Fall precautions -Further medical management per primary team -Please call with questions if any -Thank you for allowing us to participate in patient's care and management
--- NOTE | 2018-02-05 15:24 | PN.NEURO_ITS ---
Patient Problems: Active and Suspected Problems (Last Updated 02/04/18 @ 15:13 by Teressa Anderson) Proximal weakness of extremity (Acute) Crohns disease (Acute) Subjective: No issues overnight per patient. Per patient after starting Solumedrol his symptoms have improved and he is back to his baseline, is requesting to be discharged. MRI C spine reviewed- reported to show multilevel degenerative disc disease with severe foraminal narrowing with potential nerve impingement at C3- C4, C4-C5, C6-C7, and right central broad disc protrusion at C6-C7 and MRI L spine reported to show multilevel degenerative changes. Per patient he was admitted acute onset pain in both UE/shoulders followed by severe pain in both thigh and legs, restricting his ability to moves his extremities, along with severe weakness as documented, is on Remicade for Chron' s disease, since admission GBS was ruled out, patient also has normal reflexes on examination, had normal NCS and normal CSF studies. - Physical Exam General: Alert HEENT: Normocephalic Neck: Supple Lungs: Normal air movement Cardiovascular: Normal S1, Normal S2 Abdomen: Bowel Sounds Present Extremities: No cyanosis Musculoskeletal: No Tenderness to Palpation of Joints or Extremities Neurological: - - consious, alert, CN 2-12 grossly intact, power 5/5 both UE/LE , plantars B/L flexor, Reflexes +2 B/L B/S/T/K/A, no sensory loss, no cerebellar signs, gait deferred. Psych/Mental Status: Normal Affect Vital Signs Temp Pulse Resp BP Pulse Ox 98.1 F 112 H 16 147/93 H 97 02/05/18 14:59 02/05/18 14:59 02/05/18 14:59 02/05/18 14:59 02/05/18 14:59 Oxygen Delivery Method Room Air Weight: 102.6 kg Body Mass Index (BMI) 35.1 Intake and Output for Last 24 Hours 02/03/18 02/04/18 02/05/18 23:59 23:59 23:59 Intake Total 500 / 500 460 / 460 Output Total 700 / 700 Balance -200 / -200 460 / 460 Laboratory Tests Past 24 Hrs 02/04/18 02/04/18 02/04/18 17:00 17:00 17:00 WBC RBC Hgb Hct MCV MCH MCHC RDW RDW Differential Plt Count MPV Sodium Potassium Chloride Carbon Dioxide Anion Gap BUN Creatinine Estim Creat Clear Calc Est GFR (MDRD) Af Amer Est GFR (MDRD) Non-Af BUN/Creatinine Ratio Glucose Calcium Phosphorus Magnesium C-React Prot Ext Range Cortisol 8.10 Urine Opiates Screen Urine Methadone Screen Ur Barbiturates Screen Ur Phencyclidine Scrn Ur Amphetamines Screen U Methamphetamin-MDMA U Benzodiazepines Scrn Urine Cocaine Screen U Cannabinoids Screen Ur Drug Screen Comment ANN Screen Pending c-ANCA Antibody Pending p-ANCA Antibody Pending MICHELLE-1 Antibody Pending SS-A/Ro IgG Antibody Pending SS-B/La IgG Antibody Pending Sm (Hughes) Antibody Pending ENVIRONMENTAL EPIDEMIOLOGIST Antibody Pending Scl-70 Scleroderma Ab Pending Double Strand DNA Ab Pending Centromere B Antibody Pending 02/04/18 02/04/18 02/05/18 17:00 17:00 06:45 WBC 16.3 H RBC 4.89 Hgb 13.3 Hct 39.6 L MCV 81.0 MCH 27.2 MCHC 33.6 RDW 14.9 H RDW Differential 43.2 Plt Count 220 MPV 10.0 Sodium Potassium Chloride Carbon Dioxide Anion Gap BUN Creatinine Estim Creat Clear Calc Est GFR (MDRD) Af Amer Est GFR (MDRD) Non-Af BUN/Creatinine Ratio Glucose Calcium Phosphorus Magnesium C-React Prot Ext Range 225.00 H Cortisol Urine Opiates Screen POSITIVE H Urine Methadone Screen NEGATIVE Ur Barbiturates Screen NEGATIVE Ur Phencyclidine Scrn NEGATIVE Ur Amphetamines Screen NEGATIVE U Methamphetamin-MDMA NEGATIVE U Benzodiazepines Scrn NEGATIVE Urine Cocaine Screen NEGATIVE U Cannabinoids Screen NEGATIVE Ur Drug Screen Comment ANN Screen c-ANCA Antibody p-ANCA Antibody MICHELLE-1 Antibody SS-A/Ro IgG Antibody SS-B/La IgG Antibody Sm (Hughes) Antibody ENVIRONMENTAL EPIDEMIOLOGIST Antibody Scl-70 Scleroderma Ab Double Strand DNA Ab Centromere B Antibody 02/05/18 06:45 WBC RBC Hgb Hct MCV MCH MCHC RDW RDW Differential Plt Count MPV Sodium 140 Potassium 4.1 Chloride 108 H Carbon Dioxide 23.0 Anion Gap 9 BUN 22 H Creatinine 1.08 Estim Creat Clear Calc 89.72 Est GFR (MDRD) Af Amer 98 Est GFR (MDRD) Non-Af 81 BUN/Creatinine Ratio 20.4 H Glucose 148 H Calcium 9.2 Phosphorus 2.5 Magnesium 2.5 C-React Prot Ext Range Cortisol Urine Opiates Screen Urine Methadone Screen Ur Barbiturates Screen Ur Phencyclidine Scrn Ur Amphetamines Screen U Methamphetamin-MDMA U Benzodiazepines Scrn Urine Cocaine Screen U Cannabinoids Screen Ur Drug Screen Comment ANN Screen c-ANCA Antibody p-ANCA Antibody MICHELLE-1 Antibody SS-A/Ro IgG Antibody SS-B/La IgG Antibody Sm (Hughes) Antibody ENVIRONMENTAL EPIDEMIOLOGIST Antibody Scl-70 Scleroderma Ab Double Strand DNA Ab Centromere B Antibody Medical Necessity - Tobacco Use Smoking Status: Never smoker Tobacco Use: Non-smoker Assessment/Plan All Active Problems (Last Updated 02/04/18 @ 15:13 by Teressa Anderson) Proximal weakness of extremity (Acute) Crohns disease (Acute) 37 yr CM with PMH Crohn's disease on Remicade admitted with acute onset UE pain and LE pain, with decreased range of motion and weakness. symptoms improved after Solumedrol and analgesic management. Impression Likely Remicade induced adverse effects vs viral prodrome. Cervical radiculopathy/stenosis-DJD Plan -Patient is back to his baseline at present, denies any further pain and has normal neurological examination at present. -Check Lyme Ab and west Nile ab -Labs reviewed -Recommend spine surgery consult -Patient counseled to follow up with his GI doctor and avoid Remicade in future for Crohn's disease if possible -PT/OT -GI/DVT prophylaxis -Fall precautions -Further medical management per primary team -Please call with questions if any -Thank you for allowing us to participate in patient's care and management
[2018-02-05 16:03] LABS: Lyme Ab Screen Interpretation REF LAB
[2018-02-07 13:37] LABS: Pathologist Review Reviewed
[2018-02-07 16:09] LABS: Cytoplasmic Ab (C-ANCA) <1:20 titer (Neg:<1:20)
[2018-02-09 11:54] LABS: Perinuclear Ab (P-ANCA) <1:20 titer (Neg:<1:20)
[2018-02-09 11:57] LABS: ANTINUCLEAR ANTIBODIES DIRECT Negative (Negative)
[2018-02-09 20:08] LABS: Lyme IgG P18 Ab Absent (.); Lyme IgG P23 Ab Present (.); Lyme IgG P28 Ab Absent (.); Lyme IgG P30 Ab Absent (.); Lyme IgG P39 Ab Absent (.); Lyme IgG P41 Ab Absent (.); Lyme IgG P45 Ab Absent (.); Lyme IgG P58 Ab Absent (.); Lyme IgG P66 Ab Absent (.); Lyme IgG P93 Ab Absent (.); Lyme IgM P23 Ab Absent (.); Lyme IgM P39 Ab Absent (.); Lyme IgM P41 Ab Absent (.)
[2018-02-10 08:22] LABS: Lyme IgG WB Interpretation Negative (.); Lyme IgM WB Interpretation Negative (.); Lyme Scn Total Ab w/Rflx <0.91 ISR (0.00-0.90); West Nile Virus, IgG Negative (Negative); West Nile Virus, IgM Negative (Negative)
== END 2018-02-05 15:57 | disposition home or self-care (01) | DRG 556 ==
LOC: ED 13:35 → ICU 13:42 → MS3 23:45
PROVIDERS: Internal Medicine Critical Care Medicine; Nurse Practitioner Acute Care; Psychiatry & Neurology Neurology; Admitting Provider Family Medicine; Emergency Provider Emergency Medicine; Visit Provider Internal Medicine
DX: M62.81 Muscle weakness (generalized) (principal); K50.90 Crohn's disease, unspecified, without complications; M79.1 Myalgia; I10 Essential (primary) hypertension; T39.8X5A Adverse effect of other nonopioid analgesics and antipyretics, not elsewhere classified, initial encounter; M50.323 Other cervical disc degeneration at C6-C7 level; M51.36 Other intervertebral disc degeneration, lumbar region; Z90.49 Acquired absence of other specified parts of digestive tract; Z79.899 Other long term (current) drug therapy
CPT/HCPCS: 36415; 62270; 70450; 72141; 72148; 80048; 80053; 80307; 82533; 82550; 82945; 83605; 83735; 84100; 84157; 84443; 85025; 85027; 85610; 85652; 85730; 86038; 86140; 86225; 86235; 86256; 86617; 86618; 86788; 86789; 87070; 87205; 87798; 88108; 88313; 89050; 89051; 94150; 95831; 95912; 99285; A4216; J2930

== ENCOUNTER → 2018-03-18 11:55 | Outpatient (CLI) | payer OTHER, SELFPAY ==
[2018-03-18] VITALS (7 sets, daily range): BP systolic 123–136; BP diastolic 75–90; PULSE 84–102; RESP 16–18; TEMP 36.4–37.1; O2SAT 96; BMI 34.9
[2018-03-18] MEDS: Acetaminophen 325 MG Tablet 650 MG PO (12:14)
[2018-03-18] MEDS: DiphenhydrAMINE 25 MG Capsule PO (12:14)
== END ==
DX: K50.019 Crohn's disease of small intestine with unspecified complications (principal)
CPT/HCPCS: 96413; 96415; J7050; A4216; Q5103

== ENCOUNTER → 2018-05-13 12:30 | Outpatient (CLI) | payer OTHER, SELFPAY ==
[2018-05-13 12:39] VITALS: BP 133/87; PULSE 105; RESP 16; TEMP 36.8; O2SAT 93; BMI 35.7
[2018-05-13] MEDS: Acetaminophen 325 MG Tablet 650 MG PO (12:45)
[2018-05-13] MEDS: DiphenhydrAMINE 25 MG Capsule PO (12:45)
--- OUTSIDE RECORDS SUMMARY | 2018-06-29 07:32 | XMS RPT_ITS ---
:1980 Author Organization OHIP Support Name Relationship Address Phone EARL, CHARLIE Unavailable [address] + [place] [address] [employer] Unavailable [address] + [place] [address] SHAKER, CHARLIE Unavailable [address] + [place] [address] [employer] Unavailable [address] + [place] [address] SHAKER, CHARLIE Unavailable [address] + [place] [address] [employer] Unavailable [address] + [place] [address] SHAKER, CHARLIE Unavailable [address] + [place] [address] [employer] Unavailable [address] + [place] [address] SHAKER, CHARLIE Unavailable [address] + [place] [address] [employer] Unavailable [address] + [place] [address] SHAKER, CHARLIE Unavailable [address] + [place] [address] [employer] Unavailable [address] + [place] [address] SHAKER, CHARLIE Unavailable [address] + [place] [address] [employer] Unavailable [address] + [place] [address] SHAKER, CHARLIE Unavailable [address] + [place] [address] [employer] Unavailable [address] + [place] [address] SHAKER, CHARLIE Unavailable [address] + [place] [address] [employer] Unavailable [address] + [place] [address] SHAKER, CHARLIE Unavailable [address] + [place] [address] [employer] Unavailable [address] + [place] [address] SHAKER, CHARLIE Unavailable [address] + [place] [address] [employer] Unavailable [address] + [place] [address] SHAKER, CHARLIE Unavailable [address] + [place] [address] [employer] Unavailable [address] + [place] [address] SHAKER, CHARLIE Unavailable [address] + [place] [address] [employer] Unavailable [address] + [place] [address] Care Team Providers Name Role Phone DANIEL, MK Referring Unavailable DANIEL, MK Referring Unavailable DANIEL, MK Admitting Unavailable DANIEL, MK Attending Unavailable BORIS GREENWOOD Attending Unavailable BORIS GREENWOOD Referring Unavailable Primay Care Physicia, No Primary Care Unavailable BORIS GREENWOOD Attending Unavailable BORIS GREENWOOD Referring Unavailable BORIS GREENWOOD Primary Care Unavailable BORIS GREENWOOD Primary Care Unavailable BORIS GREENWOOD Attending Unavailable BORIS GREENWOOD Referring Unavailable BORIS GREENWOOD Primary Care Unavailable Roxanne Sheth Attending Unavailable BORIS GREENWOOD Primary Care Unavailable BORIS GREENWOOD Attending Unavailable BORIS GREENWOOD Referring Unavailable BORIS GREENWOOD Primary Care Unavailable BORIS GREENWOOD Attending Unavailable BORIS GREENWOOD Referring Unavailable BORIS GREENWOOD Primary Care Unavailable Raj Boyd Attending Unavailable Primay Care Physicia, No Primary Care Unavailable Scar Obrien Admitting Unavailable Isma Nieves Consulting Unavailable Paintsil, Big Arm Attending Unavailable Jus Varela Consulting Unavailable Scar Obrien Admitting Unavailable Scar Obrien Attending Unavailable Primay Care Physicia, No Primary Care Unavailable Ezequiel, Isma Consulting Unavailable Varela, Jus Consulting Unavailable Kotsonis, Scar F Consulting Unavailable Kotsonis, Scar F Admitting Unavailable Paintsil, Big Arm Attending Unavailable Primay Care Physicia, No Primary Care Unavailable Ezequiel, Isma Consulting Unavailable Varela, Jus Consulting Unavailable Paintsil, Big Arm Consulting Unavailable Ezequiel, Isma Attending Unavailable Camille, Scar F Referring Unavailable Ezequiel, Isma Attending Unavailable Camille, Scar F Referring Unavailable BORIS GREENWOOD Attending Unavailable BORIS GREENWOOD Referring Unavailable Primay Care Physicia, No Primary Care Unavailable DANIEL, MK Attending Unavailable DANIEL, MK Referring Unavailable DANIEL, MK Attending Unavailable DANIEL, MK Referring Unavailable DANIEL, MK Attending Unavailable DANIEL, MK Referring Unavailable DANIEL, MK Referring Unavailable DANIEL, MK Attending Unavailable DANIEL, MK Referring Unavailable DANIEL, MK Referring Unavailable DANIEL, MK Referring Unavailable [facility] Primary Care Unavailable DANIEL, MK Referring Unavailable [facility] Primary Care Unavailable DANIEL, MK Admitting Unavailable DANIEL, MK Attending Unavailable [facility] Primary Care Unavailable PROBLEMS PROBLEMS DATE TYPE CONDITION / CODE ATTENDING STATUS SOURCE 04/08/2018 Active Crohn's disease of NA Active [facility] both small and Clinic Main large intestine [place] without Repository complications / K50.80(ICD-10) 04/14/2017 Active Generalized NA Active [facility] abdominal pain / Clinic Main R10.84(ICD-10) [place] Repository 02/26/2018 Active Unspecified NA Active [facility] abdominal pain / Clinic Other R10.9(ICD-10) [place] Repository 02/26/2018 Admitting Unknown / NA Active [facility] UNK(Unknown) [facility] Repository 02/26/2018 Active Unknown / NA Active [facility]K(Unknown) [facility] Other [place] Repository 02/17/2018 Unknown K50.90 - Crohn's Ezequiel, Sima Active [facility] disease, Community unspecified, Hospital without Repository complications / K50.90(ICD-10) 02/17/2018 Unknown M62.81 - Muscle Ezequiel, Isma Active [facility] weakness Community (generalized) / Hospital M62.81(ICD-10) Repository 02/03/2018 Unknown M79.1 - Myalgia / OliverRaj mcclain Active [facility] M79.1(ICD-10) [facility] Hospital Repository 03/18/2018 Unknown K50.019 - Crohn's BORIS GREENWOOD Active [place] disease of small Community intestine with Hospital unspecified Repository complications / K50.019(ICD-10) 11/23/2017 Unknown N20.0 - [facility], Active [place] kidney / Roxanne [facility] N20.0(ICD-10) Hospital Repository 03/02/2017 Active Crohn's disease of NA Active [facility] small intestine Clinic Main with unspecified [place] complications / Repository K50.019(ICD-10) PROCEDURES PROCEDURES No Procedure Records FoundRESULTS RESULTS ANES POST Observed: 05/25/2018 Status: COMPLETED Source: [facility] 10:28 AM CLINIC OTHER CAMPUS REPOSITORY HNO ID: [id number] Author: Christopher Hankins Service: Anesthesiology Author Type: Physician Type: Anesthesia PostOp Filed: 05/25/2018 10:32 AM Note Text: POST ANESTHESIA EVALUATION NOTE SERVICE DATE: 05/25/2018 SERVICE TIME: 10:32 AM : 1980 Vitals: There were no vitals filed for this visit. 05/25/18 0845 05/25/18 0900 05/25/18 0955 05/25/18 1015 BP: 144/86 129/77 122/78 127/79 05/25/18 0845 05/25/18 0900 05/25/18 0955 05/25/18 1015 Pulse: 85 95 97 94 05/25/18 0845 05/25/18 0900 05/25/18 0955 05/25/18 1015 Resp: 18 18 18 16 05/25/18 0845 05/25/18 0900 05/25/18 0955 05/25/18 1015 SpO2: 96% 96% 99% 99% Validated Vital Signs: Yes POST ANES STATUS: No apparent anesthetic complications. The patient is appropriately hydrated with stable respiratory and cardiovascular status. Patient has safe and adequate airway control. The patient has appropriate pain relief and no significant post operative nausea or vomiting. The patient has achieved baseline mental status. Intra-Operative Events: No Significant Anesthesia Events Further assessment by Anesthesia Service: None Other Remarks: SIGNATURE: Christopher Hankins MD PATIENT NAME: Annabella Elliott DATE: May 25, 2018 TIME: 10:32 AM PAGER/CONTACT #: PT ED Observed: 05/25/2018 Status: COMPLETED Source: [facility] 10:09 AM [facility] REPOSITORY HNO ID: [id number] Author: Sofía Dooley) NIELS Edouard Service: Nursing Author Type: Registered Nurse Type: Patient Education Filed: 05/25/2018 10:10 AM Note Text: POST OP LEARNING RESPONSE INSTRUCTION PROVIDED TO: Patient and Family member METHOD OF INSTRUCTION: Individual instruction Written instruction - handouts Verbal instruction PATIENT / FAMILY RESPONSE: Verbalizes understanding of: POST-PROCEDURE INSTRUCTIONS-Correct actions to take to reduce post procedure complications FOLLOW-UP PLAN: Patient instructed to call with any further issues SUPPLEMENTAL MATERIAL: None REFERRAL (RECOMMENDATION): None Electronically Signed By: Sofía Edouard RN In Department: [facility] OPERATIVE NO Observed: 05/25/2018 Status: COMPLETED Source: [facility] 9:30 AM [facility] REPOSITORY HNO ID: [id number] Author: Mk Sanchez Service: Gastroenterology Author Type: Physician Type: Operative Report Filed: 05/25/2018 10:07 AM Note Text: OPERATIVE/PROCEDURE REPORT LOG ID: [id number] Surgery/Procedure Date: 05/25/2018 Incision/Procedure Start Time: 9:37 AM Incision Close/Procedure End Time: 9:51 AM Surgeon(s)/Proceduralist(s) and Store Mgr(s): Surgeon(s) and Role: * Mk Sanchez - Primary No Additional Staff Procedure(s): Colonoscopy with biopsy Anesthesia: Monitored Anesthesia Care Procedure Details: The patient was placed in the left lateral decubitus position. A digital rectal exam was performed and this was normal. The Olympus colonoscope was introduced into the rectum and advanced to the ileocolonic anastomosis; between ascending colon and terminal ileum; end to side anastomosis. The procedure was not technically difficult. The bowel preparation was good and the total withdrawal time was 7 minutes. The scope could not be passed through the anastomosis due to stenosis and sharp angle. Nodularity, friability noted around the anastomosis; biopsy taken. There were no abnormalities in the remaining colon and rectum. Retroflexion was performed and this showed small internal hemorrhoids. The scope was then withdrawn and the patient tolerated the procedure well. Pre-Op/Pre-Procedure Diagnosis: Crohn's disease Post-Op/Post-Procedure Diagnosis: Stenosis of ileocolonic anastomosis, Crohn's disease, hemorrhoids Specimens: See above EBL: minimal Complications: None Recommendations: Continue Infliximab and Entocort. May need revision of anastomosis in future. I performed the entire procedure. Mk Sanchez MD SIGNATURE: Mk Sanchez MD PATIENT NAME: Annabella Elliott DATE: May 25, 2018 TIME: 9:59 AM PAGER/CONTACT #: ANES PREOP Observed: 05/25/2018 Status: COMPLETED Source: [facility] 9:19 AM CLINIC OTHER CAMPUS REPOSITORY O ID: [id number] Author: Christopher Hankins Service: Anesthesiology Author Type: Physician Type: Anesthesia PreOp Filed: 05/25/2018 9:20 AM Note Text: ANESTHESIOLOGY DAY OF SURGERY NOTE SERVICE DATE: 05/25/2018 SERVICE TIME: 9:19 AM : 1980 Procedure(s) (LRB): COLONOSCOPY (N/A) Surgeon(s): Mk Sanchez Estimated body mass index is 35.73 kg/m? as calculated from the following: Height as of this encounter: 172.7 cm (5' 8). Weight as of this encounter: 106.6 kg (235 lb). Most recent hematocrit and potassium results: Hematocrit 44.3 03/14/2018 Potassium 4.3 03/14/2018 ANES DOS/PREOP NOTE: Vitals: 05/25/18 0845 05/25/18 0900 BP: 144/86 129/77 Pulse: 85 95 Resp: 18 18 SpO2: 96% 96% Weight: 106.6 kg (235 lb) Height: 172.7 cm (5' 8) ACTIVE PROBLEM LIST Crohn's Disease of Small Intestine With Complication (Hcc) Generalized Abdominal Pain Tachycardia PAST MEDICAL HISTORY Diagnosis Date - Crohn's disease (HCC) - Hypertension - Obese PAST SURGICAL HISTORY Procedure Laterality Date - COLONOSCOPY 05/11/2016 Grade 1 internal hemorrhoids, severe inflammation at surgical site - COLONOSCOPY 06/23/2005 Crohn's activity at ileocolonic anastamosis - COLONOSCOPY 09/17/2006 Persistent surgical anastomotic stricture.Significant inflammation and ulceration on ileal side of anastomosis - PAST SURGICAL HISTORY OF 07/01 right hemicolectomy - PAST SURGICAL HISTORY OF 1998 left ankle broken, screws FAMILY HISTORY Problem Relation Age of Onset - Colon Cancer Paternal Uncle - Breast Cancer Maternal Aunt - Cancer Maternal Grandfather renal cancer Social History: Social History Substance Use Topics - Smoking status: Former Smoker - Smokeless tobacco: Never Used Comment: Temporary smoker during college - Alcohol use No No current facility-administered medications on file prior to encounter. Current Outpatient Prescriptions on File Prior to Encounter: cyanocobalamin 1,000 mcg/mL soln enteric contrast (will be provided with radiology test) For CT ABD/PEL W IVCON Routine order Administer, As Directed One Time Only, via Oral, Rectal, both Oral and Rectal, Enteric Tube, Stoma or Indwelling Catheter, Enteric Contrast as designated per enteric contrast guidelines ergocalciferol, vitamin D2, (DRISDOL) 50,000 unit capsule hydrocortisone (ANUSOL-HC) 25 mg suppository 1 Suppository by RECTAL route twice daily as needed. iv contrast (will be provided with radiology test) CT ABD/PEL -Inject, intravenously, once for 1 dose.No IV access, insert saline lock prior to the beginning of sedation, infusion, injection of imaging exam. Discontinue saline lock post exam. If Pt. has a central line or IVAD, may access for administration according to line specific nursing protocol. Once exam is complete flush line and de-access according to line specific nursing protocol in the CT contrast administration guidelines link. losartan (COZAAR) 50 mg tablet metroNIDAZOLE (FLAGYL) 250 mg tablet Take 1 tablet by mouth twice daily. Current Facility-Administered Medications: lactated ringers infusion 5-30 mL/hr INTRAVENOUS CONTINUOUS Vonda (Supervisor [employer]) [place] Last Rate: 30 mL/hr at 05/25/18 0900 30 mL/hr at 05/25/18 09 Allergies: ALLERGIES Allergen Reactions - Ciprofloxacin Intolerance Hallucination DOS EXAM: Adequate NPO status: Yes Anesthetic risks, benefits, alternatives, personnel and consent discussed: Yes Patient agrees to proceed: Yes Previous Anesthesia: No history of adverse event. Airway Assessment: MP 2; Neck ROM: Full ROM without neurologic symptoms; Airway Evaluation: Short Neck, Thick neck and Ewing Present Symptoms of Sleep Apnea: Hypertension, BMI > 35, Neck circumference > 15.75 inches and Male gender Dentition: Teeth intact Additional Physical Exam: Lungs: Patient health status unchanged since recent history and physical. See history and physical for exam findings. Cardiac: Patient health status unchanged since recent history and physical. See history and physical for exam findings. Additional Pertinent Findings: N/A Blood Products: Not anticipated for this procedure. Anesthetic Plan: MAC with Sedation Pain Management Plan: Parenteral or Oral ASA Class: 3 Other Medical Problems: None Chronic Beta Marcin medication administered within 24 hours: N/A I have interviewed and examined the patient. I have reviewed the medical record and/or the pre-anesthesia evaluation, pertinent labs, and test results. Significant changes in the patient's condition since the History and Physical, not otherwise documented in primary service progress notes: No This contains updated information obtained within 48 hours of Surgery/Procedure. SIGNATURE: Christopher Hankins MD PATIENT NAME: Annabella Elliott DATE: May 25, 2018 TIME: 9:19 AM CSN: [id number] PT ED Observed: 05/25/2018 Status: COMPLETED Source: [facility] 9:12 AM [facility] REPOSITORY HNO ID: [id number] Author: Magalys Quigley RN Service: (none) Author Type: Registered Nurse Type: Patient Education Filed: 05/25/2018 9:13 AM Note Text: PATIENT EDUCATION PATIENT NAME: Annabella Elliott [place] READINESS TO LEARN COGNITIVE ABILITY: Alert and oriented MOTIVATION TO LEARN: Interested FAMILY SUPPORT: High - Very involved in pt care INSTRUCTION PROVIDED TO: Patient and Family member PATIENT LEARNS BEST BY: Individual Instruction Verbal Instruction Demonstration Multiple Methods FACTORS AFFECTING LEARNING: None PHYSICAL LIMITATIONS AFFECTING LEARNING: None Electronically Signed By: Magalys Quigley RN HISTORY PHYSICAL Observed: 05/25/2018 Status: COMPLETED Source: [facility] 8:35 AM [facility] REPOSITORY HNO ID: [id number] Author: Vonda Forman Service: General Surgery Author Type: Nurse Practitioner Type: HANDP Filed: 05/25/2018 8:54 AM Note Text: HISTORY AND PHYSICAL EXAMINATION SERVICE DATE: 05/25/2018 SERVICE TIME: 8:35 AM PRIMARY CARE PHYSICIAN: Opal Mccormack DO REASON FOR VISIT: Annabella Elliott is a 37 year old male who is scheduled for Procedure(s): COLONOSCOPY (N/A) at the request of Dr. SANCHEZ for routine HANDP. The patient has the following: ACTIVE PROBLEM LIST Crohn's Disease of Small Intestine With Complication (Hcc) Generalized Abdominal Pain Tachycardia Subjective CHIEF COMPLAINT: Abdominal pain HPI: 37 y.o male presents today for colonoscopy. Has previously had multiple colonoscopies. Previously dx with Crohn's. Hx of hemicolectomy previously with anastomotic structures. This is for routine screening for Crohn's. Last colonoscopy was 2 years ago. Rare abd pain. Denies Nausea, vomiting, constipation, diarrhea, hemtochezia at this time. He does receive routine infusions for Crohn's that has kept it pretty well under control. +hx of paternal uncle with colon CA, maternal grandmother with rectal CA. Patient agrees to proceed with procedure. PAST MEDICAL HISTORY Diagnosis Date - Crohn's disease (HCC) - Hypertension - Obese PAST SURGICAL HISTORY Procedure Laterality Date - COLONOSCOPY 05/11/2016 Grade 1 internal hemorrhoids, severe inflammation at surgical site - COLONOSCOPY 06/23/2005 Crohn's activity at ileocolonic anastamosis - COLONOSCOPY 09/17/2006 Persistent surgical anastomotic stricture.Significant inflammation and ulceration on ileal side of anastomosis - PAST SURGICAL HISTORY OF 07/01 right hemicolectomy - PAST SURGICAL HISTORY OF 1998 left ankle broken, screws FAMILY HISTORY Problem Relation Age of Onset - Colon Cancer Paternal Uncle - Breast Cancer Maternal Aunt - Cancer Maternal Grandfather renal cancer SOCIAL HISTORY: Social History Marital status: Spouse name: Years of education: Number of children: Social History Main Topics Smoking status: Former Smoker Packs/day: 0.00 Years: 0.00 Smokeless tobacco: Never Used Comment: Temporary smoker during college Alcohol use: No Drug use: No Prior to Admission medications as of 05/25/18 0843 Medication Sig Last Dose Taking budesonide, enteric coated (ENTOCORT EC) 3 mg 24 hr capsule Take 3 capsules by mouth once daily. cyanocobalamin 1,000 mcg/mL soln enteric contrast (will be provided with radiology test) For CT ABD/PEL W IVCON Routine order Administer, As Directed One Time Only, via Oral, Rectal, both Oral and Rectal, Enteric Tube, Stoma or Indwelling Catheter, Enteric Contrast as designated per enteric contrast guidelines ergocalciferol, vitamin D2, (DRISDOL) 50,000 unit capsule hydrocortisone (ANUSOL-HC) 25 mg suppository 1 Suppository by RECTAL route twice daily as needed. iv contrast (will be provided with radiology test) CT ABD/PEL -Inject, intravenously, once for 1 dose.No IV access, insert saline lock prior to the beginning of sedation, infusion, injection of imaging exam. Discontinue saline lock post exam. If Pt. has a central line or IVAD, may access for administration according to line specific nursing protocol. Once exam is complete flush line and de-access according to line specific nursing protocol in the CT contrast administration guidelines link. losartan (COZAAR) 50 mg tablet metroNIDAZOLE (FLAGYL) 250 mg tablet Take 1 tablet by mouth twice daily. No medication comments found. ALLERGIES Allergen Reactions - Ciprofloxacin Intolerance Hallucination REVIEW OF SYSTEMS: PAIN ASSESSMENT: Pain Pain Score: 0/10 Pain Assessment (RN/DENTAL PRACTITIONER): Assessment Tool: Verbal (Numeric Rating or Visual Analog Scale) General: Denies fever, chills, and unexpected weight change. Neuro: Denies dizziness and headaches. Respiratory: Denies SOB or productive cough Cardiovascular: Denies CP and palpitations. +HTN GI: see HPI : Denies dysuria. Endocrine: No history of diabetes or thyroid conditions. Hematology: Denies history of bleeding or clotting disorder. No known autoimmune disorders Musculoskeletal: Denies joint pain and swelling. Skin: Denies open sores and rashes. Objective PHYSICAL EXAM: VITALS: BP 144/86 Pulse 85 Resp 18 Ht 5' 8 (1.73m) Wt 235 lb (106.6kg) SpO2 96% BMI 35.74 kg/(m2). General: NAD. Cooperative. Skin: Skin is warm, no rashes, and no open sores. HEENT: Normocephalic. Cardiovascular: Normal S1 AND S2. RRR, No murmur. Lungs: CTA Bilaterally. No respiratory distress. Abdomen: Soft, nontender, non-distended. Bowel sounds normal in all four quadrants. Extremities: No edema. Neurological: Alert and oriented to person, place, and time. Pulses: radial pulses +2 Diagnostic tests reviewed for today's visit: Lab Value Units Date High Low HB 13.8 g/dL 03/14/2018 17.0 13.0 HCT 44.3 % 03/14/2018 51.0 39.0 WBC 14.61 k/uL 03/14/2018 11.00 3.70 PLT 309 k/uL 03/14/2018 400 150 NA 142 mmol/L 03/14/2018 144 136 K 4.3 mmol/L 03/14/2018 5.1 3.7 GLUC 101 mg/dL 03/14/2018 99 74 BUN 13 mg/dL 03/14/2018 24 9 CREAT 1.04 mg/dL 03/14/2018 1.22 0.73 PTSEC No results within date range. INR No results within date range. APTT No results within date range. ALT 13 U/L 03/14/2018 54 10 AST 13 U/L 03/14/2018 40 14 TBILI 0.5 mg/dL 03/14/2018 1.3 0.2 TSH No results within date range. Lab Value Units Date High Low HCGQT No results within date range. UHCG No results within date range. HCG, BODY* No results within date range. Lab Value Units Date High Low ABORHD No results within date range. ABSCREEN No results within date range. PENDING Assessment/Plan HTN - Well controlled METS: Climb a flight of stairs or walk up a hill (5.50 METs) Patient denies any chest pain or undue shortness of breath with the above physical activity. ANESTHESIA FINDINGS: Intubation History: No history of difficult intubation Significant Anesthesia Considerations: None PLAN Diagnosis: Abdominal pain, unspecified abdominal location [R10.9] Planned Procedure: Procedure(s): COLONOSCOPY (N/A) The Following Tests/Procedures Have Been Initiated: Orders Placed This Encounter lactated ringers infusion INSERT IV ([place]) Planned Anesthetic: MAC SIGNATURE: Vonda Forman APRN.CNP PATIENT NAME: Annabella Elliott DATE: May 25, 2018 TIME: 8:35 AM PAGER/CONTACT #: SURGICAL TISSUE EXAM Observed: 05/25/2018 Status: F Source: [facility] 12:00 AM HEALTH SYSTEM REPOSITORY Test performed at [place] [address] NAME: ANNABELLA ELLIOTT REQUESTING: MK SANCHEZ M.D. FINAL DIAGNOSIS: COLON, ANASTOMOTIC SITE, BIOPSY - MARKEDLY ULCERATED COLONIC MUCOSA. NEGATIVE FOR DYSPLASIA AND MALIGNANCY. OPERATIVE PROCEDURE: Colonoscopy CLINICAL INFORMATION: Crohn's disease GROSS DESCRIPTION: Anastomosis bx Received in formalin labeled anastomosis biopsy are multiple segments of gómez-red soft tissue aggregating to 0.8 x 0.2 x 0.1 cm. The specimen is totally submitted in one cassette. Levels x 2. [facility]:tito NORRIS M.D.,PATHOLOGIST (Electronic signature on file) Signed out: 05/27/2018 08:44 PRINTED: 05/27/2018 Page 1 of 1 Performed By: #### SURG #### [place] [address] TB BY [employer] Collected: 04/08/2018 Status: F Source: [facility] *OUTSIDE USE ONLY* 11:53 AM [facility] REPOSITORY TYPE CODE TESTS RESULT OUT OF REFERENCE UNITS RANGE LAB TBGNIL IU/mL TB NIL 0.16 LAB TBG1AG <0.35 IU/mL TB1 Ag minus 0.00 Nil LAB TBG2AG <0.35 IU/mL TB2 Ag minus 0.00 Nil LAB TBMITN Mitogen minus 0.85 Nil LAB TBGRES Negative TB Result Negative LAB TBGINT Interpretation No evidence of current or previous infection with Mycobacterium tuberculosis. Performed By: #### INTPGP #### [place] [id number] [place] [address] HEPATITIS B SURF. AG Collected: 04/08/2018 Status: F Source: [facility] 11:53 AM [facility] [place] REPOSITORY TYPE CODE TESTS RESULT OUT OF REFERENCE UNITS RANGE LAB HBSAG Negative Hepatitis B Negative Surf. Ag Performed By: #### HBSAG #### [place] [address] HOSP Observed: 04/07/2018 Status: COMPLETED Source: [facility] 12:00 AM [facility] OTHER CAMPUS REPOSITORY Patient:Annabella Elliott MRN: <[id number]> Height:5' 8(1.727 m) Weight:No patient weight recorded within the last 30 days. Outpatient Medications as of 05/25/18: budesonide, enteric coated (ENTOCORT EC) 3 mg 24 hr capsule cyanocobalamin 1,000 mcg/mL soln enteric contrast (will be provided with radiology test) ergocalciferol, vitamin D2, (DRISDOL) 50,000 unit capsule hydrocortisone (ANUSOL-HC) 25 mg suppository iv contrast (will be provided with radiology test) losartan (COZAAR) 50 mg tablet metroNIDAZOLE (FLAGYL) 250 mg tablet Admission/Clinic Administered Medications as of 05/25/18: lactated ringers infusion lactated ringers infusion Problem List: Crohn's disease of small intestine with complication (HCC) [K50.019] Generalized abdominal pain [R10.84] Tachycardia [R00.0] Allergies: Ciprofloxacin Date Verified: 05/25/18 Lab Values No results within the last 30 days for the following basenames: K,HCT Progress Notes ([facility]): Pauline POSADA 05/16/2018 10:37 AM Signed Patient phones requesting refills as follows: Pending Prescriptions Disp Refills BUDESONIDE DR - ER 3 MG CAPSULE,DELAYED,EXTENDED RELEASE 270 capsule 3 Sig: Take 3 capsules by mouth once daily. HAYES: No Please review and advise. Pauline POSADA CBC AND DIFFERENTIAL Collected: 03/14/2018 Status: F Source: [facility] 12:49 PM [facility] REPOSITORY TYPE CODE TESTS RESULT OUT OF REFERENCE UNITS RANGE LAB WBC 3.70-11.00 k/uL WBC High 14.61 LAB RBC 4.20-6.00 m/uL RBC 5.48 LAB HGB 13.0-17.0 g/dL Hemoglobin 13.8 LAB HCT 39.0-51.0 % Hematocrit 44.3 LAB MCV 80.0-100.0 fL MCV 80.8 LAB MCH 26.0-34.0 pG Low MCH 25.2 LAB MCHC 30.5-36.0 g/dL MCHC 31.2 LAB RDWCV 11.5-15.0 % RDW-CV High 15.5 LAB PLTCT 150-400 k/uL Platelet Count 309 LAB MPV 9.0-12.7 fL MPV 10.9 LAB ANEUT % Neut% 86.1 LAB AANEUT 1.45-7.50 k/uL Abs Neut High 12.56 LAB ALYMP % Lymph% 7.7 LAB AALYMP 1.00-4.00 k/uL Abs Lymph 1.13 LAB AMONO % [place]% 5.7 LAB AAMONO <0.87 k/uL Abs [place] 0.84 LAB AEOS % Eosin% 0.1 LAB AAEOS <0.46 k/uL Abs Eosin <0.03 LAB ABASO % Baso% 0.4 LAB AABASO <0.11 k/uL Abs Baso 0.06 LAB AUNRBC 0 /100 WBC NRBCs 0.0 LAB ABNRBC <0.01 k/uL Absolute nRBC <0.01 LAB DTYP DTYPE Auto Diff Performed By: #### CBCDIF, CMP, LIPA, CRP #### [facility] [address] [place], [place] [address] COMP METABOLIC PANEL Collected: 03/14/2018 Status: F Source: [facility] 12:49 PM [facility] REPOSITORY TYPE CODE TESTS RESULT OUT OF REFERENCE UNITS RANGE LAB TP 6.3-8.0 g/dL Protein, Total 7.5 LAB ALB 3.9-4.9 g/dL Albumin 4.1 LAB CA 8.5-10.2 mg/dL Calcium, Total 9.4 LAB TBIL 0.2-1.3 mg/dL Bilirubin, Total 0.5 LAB ALKP 38-113 U/L Alkaline Phosphatase 67 LAB AST 14-40 U/L Low AST 13 LAB GLU 74-99 mg/dL Glucose High 101 Result Comment: The [place] Diabetes Association (ADA) provides guidance for cutoff values for fasting glucose and random glucose. The ADA defines fasting as no caloric intake for at least 8 hours. Fas ting plasma glucose results between 100 to 125 mg/dL indicate increased risk for diabetes (prediabetes). Fasting plasma glucose results greater than or equal to 126 mg/dL meet the criteria for diagnosis of diabetes. In the absence of unequivocal hyperglycemia, results should be confirmed by repeat testing. In a patient with classic symptoms of hyperglycemia or hyperglycemic crisis, random plasma glucose results greater than or equal to 200 mg/dL meet the criteria for diagnosis of diabetes. Reference: Standards of Medical Care in Diabetes 2016, [place] Diabetes Association. Diabetes Care. 2016.39(Suppl 1). LAB BUN 9-24 mg/dL BUN 13 LAB CRET 0.73-1.22 mg/dL Creatinine 1.04 LAB NA 136-144 mmol/L Sodium 142 LAB K 3.7-5.1 mmol/L Potassium 4.3 LAB CL 97-105 mmol/L Chloride 103 LAB CO2 22-30 mmol/L CO2 24 LAB AGAP 9-18 mmol/L Anion Gap 15 LAB ALT 10-54 U/L ALT 13 LAB GFRAA eGFR- Amer. >60 LAB GFRNAA . eGFR-All Other Races >60 Result Comment: eGFR (Estimated GFR) Units of measure: mL/min/1.73 meters squared eGFR is derived from the reexpressed MDRD Study equation using the following parameters: serum creatinine, age, gender and race. The creatinine assay has been calibrated to be traceable to IDMS. An eGFR <60 mL/min/1.73m2 for >3 months is consistent with chronic kidney disease. Refer to KDOQI guidelines for clinical interpretation. In patients with unstable renal function, e.g. those with acute kidney injury, the eGFR may not accurately reflect actual GFR. Performed By: #### CBCDIF, CMP, LIPA, CRP #### [facility] [address] [address] LIPASE Collected: 03/14/2018 Status: F Source: [facility] 12:49 PM [facility] REPOSITORY TYPE CODE TESTS RESULT OUT OF REFERENCE UNITS RANGE LAB LIPA 16-61 U/L Lipase 19 Performed By: #### CBCDIF, CMP, LIPA, CRP #### [facility] [address] [place] [address] C-REACTIVE PROTEIN Collected: 03/14/2018 Status: F Source: [facility] 12:49 PM [facility] REPOSITORY TYPE CODE TESTS RESULT OUT OF REFERENCE UNITS RANGE LAB CRP <0.9 mg/dL High C-Reactive 1.8 Protein Performed By: #### CBCDIF, CMP, LIPA, CRP #### [facility] [address] [address] PROGRESS Observed: 03/02/2018 Status: COMPLETED Source: [facility] 11:19 AM [facility] OTHER CAMPUS REPOSITORY HNO ID: [id number] Author: Mk Sanchez Service: (none) Author Type: Physician Type: Progress Notes Filed: 03/02/2018 11:19 AM Note Text: No text entered for this result CT ABDOMEN AND PELVIS Observed: 02/26/2018 Status: F Source: [facility] WITH CONTRAST 11:11 AM [employer] SYSTEM [id number] REPOSITORY Performed at [facility] APPROVED BY: YOLANDA PEREZ MD EXAMINATION: CT ABDOMEN AND PELVIS WITH IV CONTRAST CLINICAL HISTORY: History of Crohn's disease. Right upper quadrant pain for 2 weeks TECHNIQUE: CT of the abdomen and pelvis was performed using standard technique, scanning from just above the dome of the diaphragm to the symphysis pubis. MQ: CTAP_3 Contrast: IV: 150 ml of Omnipaque 300 Oral: [address] ml of EZ CAT CT Radiation dose: Integrated Dose-length product (DLP) for this visit = 1244 mGy*cm. CT Dose Reduction Employed: Automated exposure control (AEC) was used. COMPARISON: None. RESULT: Liver: 1.3 cm posterior RIGHT lobe hepatic lesion with nodular peripheral enhancement represents a hemangioma (3:34). No other focal hepatic lesion. Biliary: No bile duct dilation. Gallbladder is unremarkable. Spleen: No mass. No splenomegaly. Pancreas: No mass or duct dilation. Adrenals: No mass. Kidneys: No mass, calculus or hydronephrosis. GI tract: Right hemicolectomy with ileocolic anastomosis, with mural thickening and luminal narrowing in the neoterminal ileum (4:38). There is a short segment of prestenotic dilatation. Possible fist tiara to adjacent small bowel loops (4:38). No dilated bowel loops elsewhere. Lymph nodes: No abdominal or pelvic lymphadenopathy. Mesentery/Peritoneum: No ascites or mass. Retroperitoneum: No mass. Vasculature: The celiac axis and SMA are patent. The portal vein and branches, splenic vein, SMV, and hepatic veins are patent. Normal caliber aorta. Pelvis: No mass, ascites or fluid collection. Normal bladder wall thickness. Bones/Soft Tissues: No sacroiliitis or other acute abnormality Lower thorax: No acute abnormality IMPRESSION: Suspect stenotic recurrent Crohn's disease at the ileocolic anastomosis is possible fistula to adjacent small bowel loops CNOV Observed: 02/26/2018 Status: COMPLETED Source: [facility] 11:00 AM CLINIC OTHER CAMPUS REPOSITORY Office Visit ([facility]) ANNABELLA ELLIOTT ([id number]) 1980 M Date Time Provider Department 02/26/18 11:[address] [facility] During your visit today, we recorded the following information about you: Mk Sanchez MD 03/02/2018 11:19 AM Signed No text entered for this result Referring Provider: MK SANCHEZ [[id number]] Allergies As of Date: 02/26/2018 Noted Allergy Reaction CIPROFLOXACIN 03/02/2017 5 - Intolerance Comments: Hallucination Date Reviewed: 02/21/2018 Reviewed by: Pauline Duncan - Fully Assessed Visit Diagnosis:Abdominal pain, unspecified abdominal location [R10.9] Order(s):CT ABD/PEL W IVCON [[id number]] Order #: [id number]. #[id number] Prescriptions as of 02/26/2018 Sig: BUDESONIDE DR - ER 3 MG CAPSU* Take 3 capsules by mouth once* AMOXICILLIN 875 MG-POTASSIUM * Take 1 tablet by mouth every * METRONIDAZOLE 500 MG TABLET Take 1 tablet by mouth three * IV CONTRAST (RADIOLOGY PROCED* CT ABD/PEL -Inject, intraveno* ENTERIC CONTRAST (RADIOLOGY P* For CT ABD/PEL W IVCON Routin* HYDROCORTISONE ACETATE 25 MG * 1 Suppository by RECTAL route* CYANOCOBALAMIN (VIT B-12) 1,0* ERGOCALCIFEROL (VITAMIN D2) 5* LOSARTAN 50 MG TABLET Problem List As Of Date 02/26/2018 Noted Resolved Crohn's disease of small intestine with complic*INVALID FOR* Generalized abdominal pain [R10.84] INVALID FOR* Tachycardia [R00.0] INVALID FOR* Encounter Status:Closed by MK SANCHEZ on 03/03/18 PROGRESS Observed: 02/21/2018 Status: COMPLETED Source: [facility] 3:23 PM [facility]INIC MAIN [facility] REPOSITORY O ID: [id number] Author: Mk Sanchez Service: (none) Author Type: Physician Type: Progress Notes Filed: 02/21/2018 4:25 PM Note Text: CHIEF COMPLAINT: Patient presents with: Crohns: Follow up, [facility], Medication refills HPI Annabella Elliott is a 37 year old male admitted to the hospital for sudden onset of weakness in the upper arm and jaw muscles. Had multiple blood tests, CT head and LP; possible but not definite diagnosis was polymyositis. No fever, chills or headaches. Having little more than usual abdominal pain over the last 3 weeks. Current Outpatient Prescriptions: budesonide, enteric coated (ENTOCORT EC) 3 mg 24 hr capsule Take 3 capsules by mouth once daily. cyanocobalamin 1,000 mcg/mL soln ergocalciferol, vitamin D2, (DRISDOL) 50,000 unit capsule losartan (COZAAR) 50 mg tablet amoxicillin-clavulanic acid (AUGMENTIN) 875-125 mg per tablet Take 1 tablet by mouth every 12 hours for 7 days. metroNIDAZOLE (FLAGYL) 500 mg tablet Take 1 tablet by mouth three times daily for 7 days. iv contrast (will be provided with radiology test) CT ABD/PEL -Inject, intravenously, once for 1 dose.No IV access, insert saline lock prior to the beginning of sedation, infusion, injection of imaging exam. Discontinue saline lock post exam. If Pt. has a central line or IVAD, may access for administration according to line specific nursing protocol. Once exam is complete flush line and de-access according to line specific nursing protocol in the CT contrast administration guidelines link. enteric contrast (will be provided with radiology test) For CT ABD/PEL W IVCON Routine order Administer, As Directed One Time Only, via Oral, Rectal, both Oral and Rectal, Enteric Tube, Stoma or Indwelling Catheter, Enteric Contrast as designated per enteric contrast guidelines hydrocortisone (ANUSOL-HC) 25 mg suppository 1 Suppository by RECTAL route twice daily as needed. No current facility-administered medications for this visit. ALLERGIES Allergen Reactions - Ciprofloxacin Intolerance Hallucination Social History Substance Use Topics - Smoking status: Former Smoker - Smokeless tobacco: Never Used Comment: Temporary smoker during college - Alcohol use No PAST MEDICAL HISTORY Diagnosis Date - Crohn's disease (HCC) - Hypertension PAST SURGICAL HISTORY Procedure Laterality Date - COLONOSCOPY 05/11/2016 Grade 1 internal hemorrhoids, severe inflammation at surgical site - COLONOSCOPY 06/23/2005 Crohn's activity at ileocolonic anastamosis - COLONOSCOPY 09/17/2006 Persistent surgical anastomotic stricture.Significant inflammation and ulceration on ileal side of anastomosis - PAST SURGICAL HISTORY OF 07/01 right hemicolectomy - PAST SURGICAL HISTORY OF 1998 left ankle broken, screws FAMILY HISTORY Problem Relation Age of Onset - Colon Cancer Paternal Uncle - Breast Cancer Maternal Aunt - Cancer Maternal Grandfather renal cancer REVIEW OF SYSTEMS Review of Systems Gastrointestinal: Positive for abdominal pain. All other systems reviewed and are negative. PHYSICAL EXAM BP 150/86 Pulse 116 Ht 5' 8 (1.73m) Wt 237 lb (107.5kg) SpO2 97% BMI 36.04 kg/(m2). Physical Exam Constitutional: He is oriented to person, place, and time. He appears well-developed and well-nourished. HENT: Head: Normocephalic. Eyes: Pupils are equal, round, and reactive to light. Conjunctivae and EOM are normal. Neck: Normal range of motion. Neck supple. Cardiovascular: Normal rate, regular rhythm, normal heart sounds and intact distal pulses. Pulmonary/Chest: Effort normal and breath sounds normal. Abdominal: Soft. Bowel sounds are normal. There is tenderness in the right upper quadrant. Musculoskeletal: Normal range of motion. Neurological: He is alert and oriented to person, place, and time. He has normal reflexes. Skin: Skin is warm and dry. Psychiatric: He has a normal mood and affect. His behavior is normal. Judgment and thought content normal. Vitals reviewed. Assessment: Crohn's disease of small intestine with complication (hcc) (primary encounter diagnosis) Generalized abdominal pain Tachycardia Abdominal pain, unspecified abdominal location Plan: Office Visit on 02/21/18 -CT ABD/PEL W IVCON -CBC + DIFF -COMP METABOLIC PANEL -C-REACTIVE PROTEIN (CRP) -LIPASE BLD Hold Infliximab for now Increase Entocort to 3 cap daily Return in about 4 weeks (around 03/21/2018). I have confirmed and edited as necessary, the PFSH and ROS obtained by others. Mk Sanchez MD DATE: 02/21/18 TIME: 4:18 PM CNOV Observed: 02/21/2018 Status: COMPLETED Source: [facility] 3:00 PM [facility] REPOSITORY Office Visit ([facility]) ANNABELLA ELLIOTT ([id number]) 1980 M Date Time Provider Department 02/21/18 3:00 PM MK SANCHEZ During your visit today, we recorded the following information about you: Pulse Blood pressure Weight Height 116/minute 150/86 107.5 kg 1.727 m Mk Sanchez MD 02/21/2018 4:25 PM Signed CHIEF COMPLAINT: Patient presents with: Crohns: Follow up, [facility], Medication refills HPI Annabella Elliott is a 37 year old male admitted to the hospital for sudden onset of weakness in the upper arm and jaw muscles. Had multiple blood tests, CT head and LP; possible but not definite diagnosis was polymyositis. No fever, chills or headaches. Having little more than usual abdominal pain over the last 3 weeks. Current Outpatient Prescriptions: budesonide, enteric coated (ENTOCORT EC) 3 mg 24 hr capsule Take 3 capsules by mouth once daily. cyanocobalamin 1,000 mcg/mL soln ergocalciferol, vitamin D2, (DRISDOL) 50,000 unit capsule losartan (COZAAR) 50 mg tablet amoxicillin-clavulanic acid (AUGMENTIN) 875-125 mg per tablet Take 1 tablet by mouth every 12 hours for 7 days. metroNIDAZOLE (FLAGYL) 500 mg tablet Take 1 tablet by mouth three times daily for 7 days. iv contrast (will be provided with radiology test) CT ABD/PEL -Inject, intravenously, once for 1 dose.No IV access, insert saline lock prior to the beginning of sedation, infusion, injection of imaging exam. Discontinue saline lock post exam. If Pt. has a central line or IVAD, may access for administration according to line specific nursing protocol. Once exam is complete flush line and de-access according to line specific nursing protocol in the CT contrast administration guidelines link. enteric contrast (will be provided with radiology test) For CT ABD/PEL W IVCON Routine order Administer, As Directed One Time Only, via Oral, Rectal, both Oral and Rectal, Enteric Tube, Stoma or Indwelling Catheter, Enteric Contrast as designated per enteric contrast guidelines hydrocortisone (ANUSOL-HC) 25 mg suppository 1 Suppository by RECTAL route twice daily as needed. No current facility-administered medications for this visit. ALLERGIES Allergen Reactions - Ciprofloxacin Intolerance Hallucination Social History Substance Use Topics - Smoking status: Former Smoker - Smokeless tobacco: Never Used Comment: Temporary smoker during college - Alcohol use No PAST MEDICAL HISTORY Diagnosis Date - Crohn's disease (HCC) - Hypertension PAST SURGICAL HISTORY Procedure Laterality Date - COLONOSCOPY 05/11/2016 Grade 1 internal hemorrhoids, severe inflammation at surgical site - COLONOSCOPY 06/23/2005 Crohn's activity at ileocolonic anastamosis - COLONOSCOPY 09/17/2006 Persistent surgical anastomotic stricture.Significant inflammation and ulceration on ileal side of anastomosis - PAST SURGICAL HISTORY OF 07/01 right hemicolectomy - PAST SURGICAL HISTORY OF 1998 left ankle broken, screws FAMILY HISTORY Problem Relation Age of Onset - Colon Cancer Paternal Uncle - Breast Cancer Maternal Aunt - Cancer Maternal Grandfather renal cancer REVIEW OF SYSTEMS Review of Systems Gastrointestinal: Positive for abdominal pain. All other systems reviewed and are negative. PHYSICAL EXAM BP 150/86 Pulse 116 Ht 5' 8 (1.73m) Wt 237 lb (107.5kg) SpO2 97% BMI 36.04 kg/(m2). Physical Exam Constitutional: He is oriented to person, place, and time. He appears well-developed and well-nourished. HENT: Head: Normocephalic. Eyes: Pupils are equal, round, and reactive to light. Conjunctivae and EOM are normal. Neck: Normal range of motion. Neck supple. Cardiovascular: Normal rate, regular rhythm, normal heart sounds and intact distal pulses. Pulmonary/Chest: Effort normal and breath sounds normal. Abdominal: Soft. Bowel sounds are normal. There is tenderness in the right upper quadrant. Musculoskeletal: Normal range of motion. Neurological: He is alert and oriented to person, place, and time. He has normal reflexes. Skin: Skin is warm and dry. Psychiatric: He has a normal mood and affect. His behavior is normal. Judgment and thought content normal. Vitals reviewed. Assessment: Crohn's disease of small intestine with complication (hcc) (primary encounter diagnosis) Generalized abdominal pain Tachycardia Abdominal pain, unspecified abdominal location Plan: Office Visit on 02/21/18 -CT ABD/PEL W IVCON -CBC + DIFF -COMP METABOLIC PANEL -C-REACTIVE PROTEIN (CRP) -LIPASE BLD Hold Infliximab for now Increase Entocort to 3 cap daily Return in about 4 weeks (around 03/21/2018). I have confirmed and edited as necessary, the PFSH and ROS obtained by others. Mk Sanchez MD DATE: 09/24/18 TIME: 4:18 PM Referring Provider: SELF [[id number]] Allergies As of Date: 02/21/2018 Noted Allergy Reaction CIPROFLOXACIN 03/02/2017 5 - Intolerance Comments: Hallucination Date Reviewed: 02/21/2018 Reviewed by: Pauline Duncan - Fully Assessed Reason for Visit: Crohns [[id number]] Cmt: Follow up, [facility], Medication refills Reason For Visit History Recorded Primary Visit Diagnosis:Crohn's disease of small intestine with complication (HCC) [K50.019] Other Visit Diagnoses:Generalized abdominal pain [R10.84] Tachycardia [R00.0] Abdominal pain, unspecified abdominal location [R10.9] Order(s):CBC + DIFF [SQCBCDIF] Order #: [id number] FUTURE COMP METABOLIC PANEL [SQCMP] Order #: [id number] FUTURE C-REACTIVE PROTEIN (CRP) [SQCRP] Order #: [id number] FUTURE amoxicillin-clavulanic acid (AUGMENTIN) 875-125 mg per tabletTake 1 tablet by mouth every 12 hours for 7 days.Disp: 14 tabletRfl: 0 metroNIDAZOLE (FLAGYL) 500 mg tabletTake 1 tablet by mouth three times daily for 7 days.Disp: 21 tabletRfl: 0 CT ABD/PEL W IVCON [[id number]] Order #: [id number] FUTURE iv contrast (will be provided with radiology test)CT ABD/PEL -Inject, intravenously, once for 1 dose.No IV access, insert saline lock prior to the beginning of sedation, infusion, injection of imaging exam. Discontinue saline lock post exam. If Pt. has a central line or IVAD, may access for administration according to line specific nursing protocol. Once exam is complete flush line and de- access according to line specific nursing protocol in the CT contrast administration guidelines link.Disp: 1 EachRfl: 0 enteric contrast (will be provided with radiology test)For CT ABD/PEL W IVCON Routine order Administer, As Directed One Time Only, via Oral, Rectal, both Oral and Rectal, Enteric Tube, Stoma or Indwelling Catheter, Enteric Contrast as designated per enteric contrast guidelinesDisp: 1 EachRfl: 0 LIPASE BLD [SQLIPA] Order #: [id number] FUTURE hydrocortisone (ANUSOL-HC) 25 mg suppository1 Suppository by RECTAL route twice daily as needed.Disp: 30 SuppositoryRfl: 1 Prescriptions as of 02/21/2018 Sig: BUDESONIDE DR - ER 3 MG CAPSU* Take 3 capsules by mouth once* CYANOCOBALAMIN (VIT B-12) 1,0* ERGOCALCIFEROL (VITAMIN D2) 5* LOSARTAN 50 MG TABLET AMOXICILLIN 875 MG-POTASSIUM * Take 1 tablet by mouth every * METRONIDAZOLE 500 MG TABLET Take 1 tablet by mouth three * IV CONTRAST (RADIOLOGY PROCED* CT ABD/PEL -Inject, intraveno* ENTERIC CONTRAST (RADIOLOGY P* For CT ABD/PEL W IVCON Routin* HYDROCORTISONE ACETATE 25 MG * 1 Suppository by RECTAL route* Problem List As Of Date 02/21/2018 Noted Resolved Crohn's disease of small intestine with complic*INVALID FOR* Generalized abdominal pain [R10.84] INVALID FOR* Tachycardia [R00.0] INVALID FOR* Prescriptions ordered this encounter Disp Refills Start End AMOXICILLIN 875 MG-POTASSIUM CLAVULA* 14 t* 0 02/21/2018 02/28/2018 Route: ORAL Sig: Take 1 tablet by mouth every 12 hours for 7 days. METRONIDAZOLE 500 MG TABLET 21 t* 0 02/21/2018 02/28/2018 Route: ORAL Sig: Take 1 tablet by mouth three times daily for 7 days. IV CONTRAST (RADIOLOGY PROCEDURE) 1 Ea* 0 02/21/2018 Class: In Office Sig: CT ABD/PEL -Inject, intravenously, once for 1 dose.No IV access, insert saline lock prior to the beginning of sedation, infusion, injection of imaging exam. Discontinue saline lock post exam. If Pt. has a central line or IVAD, may access for administration according to line specific nursing protocol. Once exam is complete flush line and de-access according to line specific nursing protocol in the CT contrast administration guidelines link. ENTERIC CONTRAST (RADIOLOGY PROCEDUR* 1 Ea* 0 02/21/2018 Class: In Office Sig: For CT ABD/PEL W IVCON Routine order Administer, As Directed One Time Only, via Oral, Rectal, both Oral and Rectal, Enteric Tube, Stoma or Indwelling Catheter, Enteric Contrast as designated per enteric contrast guidelines HYDROCORTISONE ACETATE 25 MG RECTAL * 30 S* 1 02/21/2018 Route: RECTAL Si Suppository by RECTAL route twice daily as needed. Medications Discontinued During This Encounter predniSONE (DELTASONE) 10 mg tablet 45 t* 0 07/05/2017 02/21/2018 Sig: TAKE 3 TABS DAILY X1WK,TAKE 2 TABS DAILY X1WK,TAKE 1 TAB DAILY X1WK.THEN STOP Patient not taking: Reported on 02/21/2018 Disc: Course of therapy completed infliximab-dyyb (INFLECTRA) 100 mg s* 5 Ea* 11 04/29/2017 02/21/2018 Class: Historical Med Sig: Infuse 500 mg, (5mg/kg body weight) at weeks 0, 2, 6 then every 8 weeks thereafter Disc: Reason for discontinue is not on file. Disposition: Return in about 4 weeks (around 03/21/2018). Follow-up and Disposition History Recorded Encounter Status:Closed by MK SANCHEZ on 02/21/18 CBC AND DIFFERENTIAL Collected: 02/16/2018 Status: F Source: [facility] 12:35 PM [facility]IN[facility] MAIN [facility]AMPUS REPOSITORY TYPE CODE TESTS RESULT OUT OF REFERENCE UNITS RANGE LAB WBC 3.70-11.00 k/uL WBC High 16.54 LAB RBC 4.20-6.00 m/uL RBC 5.35 LAB HGB 13.0-17.0 g/dL Hemoglobin 13.9 LAB HCT 39.0-51.0 % Hematocrit 45.1 LAB MCV 80.0-100.0 fL MCV 84.3 LAB MCH 26.0-34.0 pG MCH 26.0 LAB MCHC 30.5-36.0 g/dL MCHC 30.8 LAB RDWCV 11.5-15.0 % RDW-CV 14.7 LAB PLTCT 150-400 k/uL Platelet Count 257 LAB MPV 9.0-12.7 fL MPV 10.3 LAB ANEUT % Neut% 86.4 LAB AANEUT 1.45-7.50 k/uL Abs Neut High 14.28 LAB ALYMP % Lymph% 8.9 LAB AALYMP 1.00-4.00 k/uL Abs Lymph 1.48 LAB AMONO % [place]% 4.4 LAB AAMONO <0.87 k/uL Abs [place] 0.72 LAB AEOS % Eosin% 0.1 LAB AAEOS <0.46 k/uL Abs Eosin <0.03 LAB ABASO % Baso% 0.2 LAB AABASO <0.11 k/uL Abs Baso 0.04 LAB AUNRBC 0 /100 WBC NRBCs 0.0 LAB ABNRBC <0.01 k/uL Absolute nRBC <0.01 LAB DTYP DTYPE Auto Diff Performed By: #### CBCDIF, CMP, CRP #### [facility] [address] [place], [place] [address] COMP METABOLIC PANEL Collected: 02/16/2018 Status: F Source: [facility] 12:35 PM [facility] REPOSITORY TYPE CODE TESTS RESULT OUT OF REFERENCE UNITS RANGE LAB TP 6.3-8.0 g/dL Protein, Total 7.0 LAB ALB 3.9-4.9 g/dL Albumin 4.0 LAB CA 8.5-10.2 mg/dL Calcium, Total 9.4 LAB TBIL 0.2-1.3 mg/dL Bilirubin, Total 0.4 LAB ALKP 36-108 U/L Alkaline Phosphatase 70 LAB AST 14-40 U/L AST 14 LAB GLU 74-99 mg/dL Glucose High 111 Result Comment: The [place] Diabetes Association (ADA) provides guidance for cutoff values for fasting glucose and random glucose. The ADA defines fasting as no caloric intake for at least 8 hours. Fas ting plasma glucose results between 100 to 125 mg/dL indicate increased risk for diabetes (prediabetes). Fasting plasma glucose results greater than or equal to 126 mg/dL meet the criteria for diagnosis of diabetes. In the absence of unequivocal hyperglycemia, results should be confirmed by repeat testing. In a patient with classic symptoms of hyperglycemia or hyperglycemic crisis, random plasma glucose results greater than or equal to 200 mg/dL meet the criteria for diagnosis of diabetes. Reference: Standards of Medical Care in Diabetes 2016, [employer]. Diabetes Care. 2016.39(Suppl 1). LAB BUN 9-24 mg/dL BUN 18 LAB CRET 0.73-1.22 mg/dL Creatinine 1.04 LAB NA 136-144 mmol/L Sodium 141 LAB K 3.7-5.1 mmol/L Potassium Low 3.5 LAB CL 97-105 mmol/L Chloride 104 LAB CO2 22-30 mmol/L CO2 22 LAB AGAP 9-18 mmol/L Anion Gap 15 LAB ALT 10-54 U/L ALT 23 LAB GFRAA eGFR- Amer. >60 LAB GFRNAA . eGFR-All Other Races >60 Result Comment: eGFR (Estimated GFR) Units of measure: mL/min/1.73 meters squared eGFR is derived from the reexpressed MDRD Study equation using the following parameters: serum creatinine, age, gender and race. The creatinine assay has been calibrated to be traceable to IDMN. An eGFR <60 mL/min/1.73m2 for >3 months is consistent with chronic kidney disease. Refer to KDOQI guidelines for clinical interpretation. In patients with unstable renal function, e.g. those with acute kidney injury, the eGFR may not accurately reflect actual GFR. Performed By: #### CBCDIF, CMP, CRP #### [facility] [employer] [address], [place] [address] C-REACTIVE PROTEIN Collected: 02/16/2018 Status: F Source: [place]ARR 12:35 PM [facility] REPOSITORY TYPE CODE TESTS RESULT OUT OF REFERENCE UNITS RANGE LAB CRP <0.9 mg/dL High C-Reactive 1.7 Protein Performed By: #### CBCDIF, CMP, CRP #### [facility] [employer] [address] [place], [place] [address] CONSULTATION Observed: 02/15/2018 Status: F Source: [place] 11:02 AM [facility] REPOSITORY [facility] Medical Records Department [address] [place] [address] Consultation 02/04/18 1428 MR#: [id number] Acct: [id number] Name: ANNABELLA ELLIOTT Rep #: [id number] : 1980 37 From: Jus Varela MD PCP: Care Physician, No Primary Status: DIS IN Y Location: MN3 [id number] Reason for Consult Date of Consultation: 02/04/18 Reason for Consultation: weakness History of Present Illness: The patient is a 37 year old male with a history of crohn's disease, on remicade for about 9 months, with a total of approx 5 remicade infusions previously well tolerated. he has also had a partial colectomy for his crohns disease several years ago. 8 days ago he recieved a remicade infusion, and 2 days ago he noted bilateral jaw and right shoulder discomfort followed by progressive severe weakness. his is present and notes he was unable to put his shirt on this morning. no other recent illness or med changes. no SOB, or dysphagia. no vision changes. Past Medical History Medical History: Medical History (Last Updated 02/04/18 @ 14:33 by Jus Varela MD) Crohns disease K50.90 Allergies ciprofloxacin [From Cipro] Adverse Reaction (Verified 02/03/18 19:36) Other hallucinations Home Medications: Ambulatory Orders Medication Instructions Recorded Surgical History: colectomy Psychiatric History: No pertinent psych hx Lives: Spouse/ Significant Other Smoking Status: Never smoker Alcohol: None Drugs: None Review of Systems Constitutional: Denies: Chills, Fever, Weight Change Eyes: Denies: Blurred vision, Double vision HEENT: Denies: Head Aches, Sinus Congestion, Sinus Drainage Cardiovascular: Denies: Chest Pain, Palpitations Respiratory: Denies: Cough, Shortness of breath at rest, Sputum production Gastrointestinal: Denies: Abdominal Pain, Diarrhea, Nausea, Vomiting Genitourinary: Denies: Dysuria Musculoskeletal: Reports: Muscle pain. Denies: Joint Pain, Joint Tenderness Skin: Denies: Rash, Wounds Neurological: Reports: Focal weakness. 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 left HF 1/5 right HF 3/5 df/pf 4/5 bilat dtrs 2+ sensation intact - Physical Exam Psych/Mental Status: Normal Affect Vital Signs Temp Pulse Resp BP Pulse Ox 35.9 C L 89 18 133/85 H 97 02/04/18 10:45 02/04/18 14:12 02/04/18 14:12 02/04/18 14:12 02/04/18 14:12 Laboratory Tests Fld Polynuclear WBCs # 0.001 Fld Polynuclear WBCs % 50.0 Fluid Mononuclear WBCs 0.001 csf protein 44 (normal) Assessment/Plan All Active Problems (Last Updated 02/04/18 @ 14:33 by Jus Varela MD) Proximal weakness of extremity (Acute) acute weakness, GBS (reported post remicade in literature) vs multiple plexopathies vs viral syndrome csf normal, ncv normal, and reflexes intact indicates non- demyelinating syndrome, await ncvs mri thoracic and lumbar spine steroids follow nif and vc 02/15/18 1102 <Electronically signed by Jus Varela MD> Date Jus Varela MD Cosigner Signature (if applicable): Date CC: No Primary Care Physician; Isma Nieves MD; Jus Varela MD Signed 12 LEAD ELECTROCARDIOGRAM Observed: 02/08/2018 Status: F Source: JACK[place] 2:41 PM [facility] REPOSITORY [facility] Cardiovascular Services [address] [place] [id number] 12 Lead EKG 02/03/181940 MR#: [id number] Acct: [id number] Name: ANNABELLA ELLIOTT Rep #: [id number] : 1980 37 From: Iban Shepard MD Attending Dr: Status: DEP ER Ordering Dr: Raj Boyd MD Date: 02/03/18 Location: ED Sex: M C Admitted: Test Reason : CP Blood Pressure : / mmHG Vent. Rate : 104 BPM Atrial Rate : 104 BPM P-R Int : 120 ms QRS Dur : 098 ms QT Int : 326 ms P-R-T Axes : 036 052 005 degrees QTc Int : 428 ms Sinus tachycardia Otherwise normal ECG Confirmed by IBAN SHEPARD ([id number]), online editor CHRIS FOSTER ([id number]) on 02/08/2018 2:40:49 PM Referred By: Confirmed By:IBAN SHEPARD 02/08/18 1440 Date Iban Shepard MD CC: OUT OF TOWN DOCTOR; Raj Boyd MD Signed DISCHARGE SUMMARY Observed: 02/05/2018 Status: F Source: [place] 7:41 PM [facility] REPOSITORY [facility] Medical Records Department [address] [place] [address] Discharge Summary 02/05/18 1500 MR#: [id number] Acct: [id number] Name: ANNABELLA ELLIOTT Rep #: [id number] : 1980 37 From: Lizabeth Charles MD PCP: Care Physician, No Primary Status: DIS IN Y Location: MS3 [id number] Discharge Date and Diagnosis Date of Admission: 02/04/18 Date of Discharge: 02/05/18 - Primary Discharge Diagnosis Active and Suspected Problems (Last Updated 02/04/18 @ 15:13 by Teressa Anderson) Proximal weakness of extremity (Acute) Crohns disease (Acute) Side effects from Remicade - Secondary Discharge Diagnosis Crohn's disease Hypertension Hospital Course and Treatment Imaging Results: Clinical Impression(s) from Imaging Studies Brain CT 02/04/18 11:11 IMPRESSION: Normal unenhanced CT scan of the brain. Electronically Signed: Royce Bridges DO at 12:52 EDT Tel , Service support , Cervical Spine MRI 02/04/18 15:34 IMPRESSION: Multilevel degenerative disc disease and degenerative arthropathy of the cervical spine with neural foraminal narrowing and potential nerve impingement, as described. Electronically Signed: Alicia Foster MD at 19:23 EDT , Service support , Lumbar Spine MRI 02/04/18 15:34 IMPRESSION: Mild multilevel degenerative disc disease and degenerative arthropathy of the lumbar spine, as described. Electronically Signed: Alicia Foster MD at 19:39 EDT , Service support , Neurology Critical care Operations: None Procedures: None Summary of Care Provided: 37 y/o male with PMHx of hypertension, Crohn's disease comes in with complains of muscle pain, weakness and inability to wear his clothes ongoing for 2 days. And was seen by neurology and consideration was made for possible GBS. Critical care was also consulted. 1. Proximal muscle weakness, with concern for possible GBS, likely secondary to Remicade treatment Nerve conduction studies were negative, started on high dose steroids, CRP elevated, CK normal, CSF negative, rheumatological work-up pending at time of discharge, Lyme disease, West Nile tests were pending. MRI of cervical and lumbar spine shows multilevel degenerative disc disease, severe in C6-C7 Neurology and Pulmonology consulted. Started on high-dose steroids with much improvement. Received 2 days of 1 g Solu-Medrol. His pain and weakness resolved. Able to ambulate in his room. Lung function evaluation was normal. Patient was discharged. 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 Asked to follow-up with her primary care doctor and neurologist for further workup 2. Leucocytosis, elevated secondary to steroids, need to repeat CBCD within a week 3. Crohn's disease, on budesonide 3. Hypertension, on Losartan Discharge Diet: Low fat/ Low Cholesterol, 2000 mg Sodium Diet Discharge Activity: Return to Normal Activity Home Medications: Medications to take at Discharge Losartan Potassium [Cozaar] 50 mg PO DAILY 05/05/17 Budesonide Capsule [Entocort EC] 9 mg PO DAILY 10/06/17 Infliximab-DYYB [Inflectra] 500 mg IV .COMPLEX 02/04/18 Other Amb Orders: CBC W/Diff, Automated Location: Laboratory Primary Care Physician: [facility] Doctor,Out of [NON-STAFF] - Please follow up with your Primary Care Physician in: within 2 weeks Please Follow Up With: Jus Varela MD When: within 2 weeks Disposition: Home Minutes spent on discharge:: 40 Patient Condition:: Stable Medical Necessity - Tobacco Use Smoking Status: Never smoker Tobacco Use: Non-smoker Meaningful Use Info Meaningful Use Diagnoses (Choose all that apply): None applicable Code Visit Inpatient E AND M: 68636 Disch Hosp 02/05/181940 <Electronically signed by Lizabeth Charles MD> Date Lizabeth Charles MD Cosigner Signature (if applicable): Date CC: No Primary Care Physician; Lizabeth Charles MD Signed LYME ANTIBODIES,W BLOT Collected: 02/05/2018 Status: F Source: ALY 3:48 PM [facility] REPOSITORY Order Comment: Comments: send results to PCP- Dr. Isabella Mccormack TYPE CODE TESTS RESULT OUT OF RANGE REFERENCE UNITS LAB L7000.5920 . Normal P93 Ab Absent LAB L7000.5940 . Normal P66 Ab Absent LAB L7000.5960 . Normal P58 Ab Absent LAB L7000.5980 . Normal P45 Ab Absent LAB L7000.6000 . Normal P41 Ab Absent LAB L7000.6020 . Normal P39 Ab Absent LAB L7000.6040 . Normal P30 Ab Absent LAB L7000.6060 . Normal P28 Ab Absent LAB L7000.6080 . High P23 Ab Present LAB L7000.6100 . Normal P18 Ab Absent LAB L7000.6200 . Normal LYME IgG Negative INTERP Result Comment: Positive: 5 of the following Borrelia-specific bands: 18,23,28,30,39,41,45,58, 66, and 93. Negative: No bands or banding patterns which do not meet positive criteria. LAB L7000.6320 . Normal P41 Ab Absent LAB L7000.6340 . Normal P39 Ab Absent LAB L7000.6360 . Normal P23 Ab Absent LAB L7000.6400 . Normal LYME IgM Negative INTERP Result Comment: Note: An equivocal or positive EIA result followed by a negative Western Blot result is considered NEGATIVE. An equivocal or positive EIA result followed by a positive Western Blot is considered POSITIVE by the CDC. Positive: 2 of the following bands: 23,39 or 41 Negative: No bands or banding patterns which do not meet positive criteria. Criteria for positivity are those recommended by CDC/ASTPHLD. p23=Osp C, b07=jdrbhhtzx Note: Sera from individuals with the following may cross react in the Lyme Western Blot assays: other spirochetal diseases (periodontal disease, leptospirosis, relapsing fever, yaws, and pinta); connective autoimmune (Rheumatoid Arthritis and Systemic Lupus Erythematosus and also individuals with Antinuclear Antibody); other infections ([place] Spotted Fever; Wally-Ochoa Virus, and Cytomegalovirus). Performed at: [address] [id number] Vascular Tech: Lavelle Dodge MD, Phone: [phone] Performed By: #### L7000.5800 #### [facility] (refer to report for specific site) refer to report for address and phone number WEST NILE VIRUS AB Collected: 02/05/2018 Status: F Source: ALY 3:48 PM [facility] REPOSITORY Order Comment: Comments: PCP- Dr. Isabella Mccormack Comments: Send results to PCPWalt Mccormack TYPE CODE TESTS RESULT OUT OF RANGE REFERENCE UNITS LAB L7000.5100 Negative Normal WEST Negative NILE, IgM Result Comment: No detectable West Nile Virus IgM Antibody. If a recent infection is suspected, another specimen should be submitted for testing within 7-14 days. LAB L7000.5200 Negative Normal WEST Negative NILE, IgG Result Comment: No detectable West Nile Virus IgG Antibody. If a recent infection is suspected, another specimen should be submitted for testing within 7-14 days. Performed By: #### L7000.5000, L7000.5300, L7000.8500 #### [facility] (refer to report for specific site) refer to report for address and phone number LYME SCREEN W/REFLEX Collected: 02/05/2018 Status: F Source: [facility] 3:48 PM [facility] REPOSITORY Order Comment: Comments: PCP- Dr. Isabella Mccormack Comments: Send results to PCP- Dr. Isabella Mccormack TYPE CODE TESTS RESULT OUT OF RANGE REFERENCE UNITS LAB L7000.5400 0.00-0.90 ISR Normal LYME SCN <0.91 AB Result Comment: Negative <0.91 Equivocal 0.91 - 1.09 Positive >1.09 LAB L7000.5500 Normal LYME SCN REF INTERP LAB Performed By: #### L7000.5000, L7000.5300, L7000.8500 #### [facility] (refer to report for specific site) refer to report for address and phone number WEST NILE VIRUS Collected: 02/05/2018 Status: F Source: [facility] QUAL BY PCR 3:48 PM [facility] REPOSITORY Order Comment: Comments: PCP- Dr. Isabella Mccormack Comments: Send results to PCP- Dr. Isabella Mccormack TYPE CODE TESTS RESULT OUT OF RANGE REFERENCE UNITS LAB L7000.8510 . Test Normal WNV not performed QUAL PCR Result Comment: No frozen specimen received. Contacted Mere Farooq at your facility on 02-08-2018 PCR assay performed using [employer]s validated, proprietary methodology. LAB L7000.8520 . Normal WNV PCR Comment AMP/DET Result Comment: Performed Performed By: #### L7000.5000, L7000.5300, L7000.8500 #### [facility] (refer to report for specific site) refer to report for address and phone number DISCHARGE INSTRUCTION Observed: 02/05/2018 Status: F Source: ALY 3:10 PM [facility] REPOSITORY [facility] Medical Records Department [address] [place] [address] Instructions for Home/Discharge Instructions 02/05/18 1456 MR#: [id number] Acct: [id number] Name: ANNABELLA ELLIOTT Rep #: [id number] : 1980 37 From: Lizabeth Charles MD PCP: Care Physician, No Primary Status: ADM IN ADDENDUM by Lizabeth Charles MD on 02/05/18 at 1510 Follow-up with your PCP- Dr. Isabella Mccormack for a copy of your lab results Date Lizabeth Charles MD cc: No Primary Care Physician; Isma Nieves MD; Jus Varela MD * Signed - Discharge Diagnoses Current Active Problems: Current Active and Chronic Problems (Last Updated 02/04/18 @ 15:13 by Teressa Anderson) Proximal weakness of extremity (Acute) Crohns disease (Acute) Reason(s) for Visit for Discharge Instructions: Weakness You will use the following diet at home:: Regular Your food should be the consistency of: Regular Your liquids should be the consistency of: Regular/Thin Discharge Activity: Return to Normal Activity Additional Instructions: Continue on your regular medications. Discuss with your sugar trucker about the use of Remicade. Continue to remain active. Allergies/Adverse Reactions: Allergies ciprofloxacin [From Cipro] Adverse Reaction (Verified 02/03/18 19:36) Other hallucinations Medications to take at Discharge Losartan Potassium [Cozaar] 50 mg PO DAILY 05/05/17 Budesonide Capsule [Entocort EC] 9 mg PO DAILY 10/06/17 Infliximab-DYYB [Inflectra] 500 mg IV .COMPLEX 02/04/18 Orders to be completed after discharge: CBC W/Diff, Automated Location: Laboratory Primary Care Physician: [facility] Doctor,Out of [NON-STAFF] - Please follow up with your Primary Care Physician in: within 2 weeks Test Results: Test results from this visit will be discussed in further detail at your follow-up appointment, if applicable. Please Follow Up With: Jus Varela MD When: within 2 weeks Proposed Discharge Date: 02/05/18 02/05/18 1500 <Electronically signed by Lizabeth Charles MD> Date Lizabeth Charles MD CC: No Primary Care Physician; Isma Nieves MD; Jus Varela MD CBC-COMPLETE BLOOD CNT Collected: 02/05/2018 Status: F Source: ALY NO DIFF 6:45 AM [facility] REPOSITORY TYPE CODE TESTS RESULT OUT OF RANGE REFERENCE UNITS LAB L100.1000 4.4-11.0 K/mm3 High WBC 16.3 LAB L100.1200 4.6-6.2 M/mm3 Normal RBC 4.89 LAB L100.1300 13.0-16.5 g/dl Normal HGB 13.3 LAB L100.1400 40-54 % Low HCT 39.6 LAB L100.1500 80-94 fL Normal MCV 81.0 LAB L100.1600 27.0-32.0 pg Normal MCH 27.2 LAB L100.1700 32-36 g/gl Normal MCHC 33.6 LAB L100.1810 11.6-14.6 % High RDW CV 14.9 LAB L100.1820 35.1-43.9 fl Normal RDW SD 43.2 LAB L100.1900 150-450 K/mm3 Normal PLT 220 LAB L100.2000 6.2-12.0 fl Normal MPV 10.0 Performed By: #### L100.0500 #### [facility] Laboratory [address] [place], [address] BASIC METABOLIC Collected: 02/05/2018 Status: F Source: [place] PROFILE (BMP) 6:45 AM [facility] REPOSITORY TYPE CODE TESTS RESULT OUT OF RANGE REFERENCE UNITS LAB L501.0100 74-106 mg/dL High GLU 148 Result Comment: Fasting Glucose result greater than or equal to 126 mg/dL suggests DIABETES MELLITUS per A.D.A. criteria. Please note revised GLUCOSE reference range effective 2017. LAB L501.1000 7-18 mg/dL High BUN 22 LAB L501.1100 0.70-1.30 mg/dL Normal CREAT,SERUM 1.08 Result Comment: The validity of the calculated GFR AND GFRAA in patients over 70 years has not been determined. Clinical correlation is essential. LAB L501.1110 >60 mL/min Normal EST GFR 81 Result Comment: Non- GFR Calc LAB L501.1115 >60 mL/min Normal EST GFR - AA 98 Result Comment: GFR Calc LAB L501.1255 ml/min Normal Estimated CRCL 89.72 LAB L501.1300 10-20 RATIO High BUN/CRE 20.4 LAB L501.2200 8.5-10 mg/dL Normal .1 CA 9.2 LAB L501.5300 136-14 mmol/L Normal 5 NA 140 LAB L501.5600 3.5-5. mmol/L Normal 1 K 4.1 LAB L501.5900 98-107 mmol/L High CL 108 LAB L501.6100 21.0-3 mmol/L Normal 2.0 CO2 23.0 LAB L501.6200 5-15 Normal GAP 9 Performed By: #### L500.2500, L501.2300, L501.5200 #### [facility] Laboratory [address] [place], [place], [address] PHOSPHORUS Collected: 02/05/2018 Status: F Source: ALY 6:45 AM [facility] REPOSITORY TYPE CODE TESTS RESULT OUT OF RANGE REFERENCE UNITS LAB L501.2300 2.5-4.9 mg/dL Normal PHOS 2.5 Performed By: #### L500.2500, L501.2300, L501.5200 #### [facility] Laboratory [address] [place], [address] MAGNESIUM Collected: 02/05/2018 Status: F Source: [place] 6:45 AM [facility] REPOSITORY TYPE CODE TESTS RESULT OUT OF RANGE REFERENCE UNITS LAB L501.5200 1.6-2.6 mg/dL Normal MG 2.5 Performed By: #### L500.2500, L501.2300, L501.5200 #### [facility] Laboratory [address] [place], [address] CONSULTATION Observed: 02/05/2018 Status: F Source: [place] 5:19 AM [facility] REPOSITORY [facility] Medical Records Department [address] [facility] [place] [address] Consultation 02/04/18 1555 MR#: [id number] Acct: [id number] Name: ANNABELLA ELLIOTT Rep #: [id number] : 1980 37 From: Isma Nieves MD PCP: Care Physician, No Primary Status: ADM IN [place] [facility] [id number] Problem List (1) Crohns disease Status: Acute (2) Proximal weakness of extremity Status: Acute Reason for Consult Date of Consultation: 02/04/18 Reason for Consultation: ICU management History of Present Illness: The patient is a 37 year old M, with past medical history significant for Crohn's disease on Remicade therapy for approximately 9 months, who presents to [facility] on 02/04/2018 secondary to proximal muscle pain. Patient states that people have asked if it is weakness, but he states that on Wednesday, 2 days prior to presentation, patient started to have jaw pain that radiated into the neck and bilateral shoulders. This was subsequently told by proximal muscle pain in the legs leading to an inability to put his clothes on. Patient presented for evaluation. In the emergency room, patient had an LP that was unremarkable. Patient is also had an EMG that was within normal limits. Patient had an initial Bulmaro greater than 50 in a vital capacity over 2-1/2 L. Patient was admitted to the intensive care unit for monitoring of his respiratory system. Patient does report he received his Remicade infusion approximately 8 days ago. Patient states his Crohn's is fairly controlled. Patient states he typically takes Tylenol for pain, but was on narcotics this morning secondary to severe pain. Patient states he does not feel that he is overly weak, but has significant pain in the proximal muscles with any sort of movement. Patient denies any sensation of dyspnea at this time. Patient states his bowel movements have been at his baseline. Patient denies any rash, trauma or exposures. Patient reports a very brief exposure to tobacco in college. Patient denies any alcohol or drugs. 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 Patient denies any exposure to tuberculosis or asbestos. Patient denies any previous complications with Remicade therapy. Patient has not had any change in sensation, dysphagia or dizziness. Patient denies any change in vision or facial droop. Patient denies any recent viral illnesses. Review of systems otherwise negative 10 systems. Past Medical History Medical History: Medical History (Last Updated 02/04/18 @ 15:13 by Teressa Anderson) Crohns disease K50.90 HTN (hypertension) I10 Allergies ciprofloxacin [From Cipro] Adverse Reaction (Verified 02/03/18 19:36) Other hallucinations Home Medications: Ambulatory Orders Medication Instructions Recorded Surgical History: colectomy Psychiatric History: No pertinent psych hx Lives: Spouse/ Significant Other Smoking Status: Never smoker Tobacco Use: Non-smoker Alcohol: None Drugs: None Review of Systems Comment: See HPI Patient Problems: Active and Suspected Problems (Last Updated 02/04/18 @ 15:13 by Teressa Anderson) Proximal weakness of extremity (Acute) Crohns disease (Acute) Objective: CT scan of the head was personally reviewed and no obvious abnormalities were appreciated. - Physical Exam General: Alert, Oriented x3, Cooperative, No apparent distress, - - Obese. Speaking in full sentences. HEENT: Atraumatic, PERRLA, EOMI, Normocephalic, - - No scleral icterus or injection noted. No facial droop appreciated. Oral: Moist Mucosa, No Gingival or Mucosal Lesions/ Ulcerations, - - Good dentition. Neck: Supple, No JVD, No Nodes, Trachea Midline, - - Unable to palpate any fluctuant masses in the neck or parotid areas. Lungs: Clear to auscultation, Normal air movement, No rhonchi, No wheeze, No rales Cardiovascular: Regular rate, Regular Rhythm, Normal S1, Normal S2, No murmurs, No rub noted, No Gallop Abdomen: Bowel Sounds Present, Soft, Non Tender, Non-Distended, Obese Extremities: No clubbing, No cyanosis, No edema, Capillary Refill Less than 3 Seconds Skin: No rashes, No breakdown, - - No Gottron's patches or heliotrope rash appreciated Musculoskeletal: - - Tenderness to palpation of the proximal thighs and arms. Point tenderness at the medial bicep insertion site Lymphatic: No Cervical, Supraclavicular, or Inguinal Adenopathy Neurological: - - Sensation appears to be intact. No facial droop is appreciated. Patient with limited movement of the left lower extremity, but is able to move his right lower extremity to gravity. 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 Limited ability to lift left arm, but can hold right arm against gravity. Psych/Mental Status: Alert and oriented to time, place, person, mood and affect Vital Signs Temp Pulse Resp BP Pulse Ox 35.9 C L 89 18 133/85 H 97 02/04/18 10:45 02/04/18 14:12 02/04/18 14:12 02/04/18 14:12 02/04/18 14:12 Oxygen Delivery Method Room Air Weight: 104.78 kg Body Mass Index (BMI) 35.1 Laboratory Tests WBC 15.6 H RBC 5.04 Hgb 13.7 Hct 40.6 WBC RBC Hgb Hct WBC RBC Hgb Hct MCV MCH MCHC RDW RDW Differential Plt Count MPV Immature Gran % (Auto) Neut % (Auto) Lymph % (Auto) [place] % (Auto) Clinical Impression(s) from Imaging Studies Brain CT 02/04/18 11:11 IMPRESSION: Normal unenhanced CT scan of the brain. Electronically Signed: Royce Bridges DO at 12:52 EDT Tel , Service support , Assessment/Plan Active and Suspected Problems (Last Updated 02/04/18 @ 15:13 by Teressa Anderson) Proximal weakness of extremity (Acute) Crohns disease (Acute) RECOMMENDATIONS: 1. Obtain CPK, ESR and CRP 2. Obtain random cortisol for adrenal insufficiency 3. Obtain tox screen 4. NIF and vital capacities every 4 hours for 24 hours, BiPAP rescue if necessary 5. Toradol IV for pain 6. Await MRI 7. Possibly transfer out of the intensive care unit tomorrow morning IMPRESSIONS: 1. Proximal muscle pain/weakness Unclear etiology at this time. Patient does not appear to have an ascending or descending neuropathy such as Guyon Ochoa syndrome. Patient's LP was relatively unremarkable. Patient does have some pain on palpation. Will check a TSH for possible thyroid abnormalities. CPK to evaluate for rhabdomyolysis. Will obtain an ANN and ANCA for vasculitis and rheumatologic etiologies. CRP and ESR for evaluation of inflammation state. We will also obtain a tox screen. Patient's blood sugars are within normal limits, so diabetic neuropathy is unlikely. He does not have dermatologic findings consistent with dermatomyositis. Patient does not have any respiratory symptoms consistent with influenza. Patient is not reporting any recent travel, so Chagas disease is unlikely. Patient is not currently on a statin. Patient does not take glucocorticoids at baseline. She does not have any significant electrolyte abnormalities such as hyperkalemia. Can check phosphate in the morning. Low clinical suspicion for respiratory depression. Possibly transfer out of the intensive care unit tomorrow. 2. Crohn's disease Patient does have a history of Crohn's disease treated with Remicade therapy. Patient appears to be doing well at this time. Code Visit Inpatient E AND M: [id number] Init Hosp L3 02/05/18 0519 <Electronically signed by Isma Nieves MD> Date Isma Nieves MD Cosigner Signature (if applicable): Date CC: No Primary Care Physician; Isma Nieves MD; Jus Varela MD Signed HISTORY AND PHYSICAL Observed: 02/04/2018 Status: F Source: JACKSON EXAM 5:02 PM [facility] REPOSITORY [facility] Medical Records Department [address] [place] [address] History and Physical 02/04/18 1559 MR#: [id number] Acct: [id number] Name: ANNABELLA ELLIOTT Rep #: [id number] : 1980 37 From: Scar Obrien MD PCP: Care Physician, No Primary Status: ADM IN Y Location: ICU ICU06-1 Problem List (1) Proximal weakness of extremity Status: Acute (2) Crohns disease Status: Acute History of Present Illness Date of Admission: 02/04/18 Chief Complaint: Muscle pain The patient is a 37 year old M with a h/o crohns and HTN presents with a 2 days h/o of proximal muscle pain and weakness d/t to the pain. He states that he started having pain in his proximal arms and legs and legs. He says that he is weak, he thinks because of the pain. 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 He is on remicade and had his last infusion 8 days ago. He called Dr. Varela who recommended he come to the ED. In the ER his labs were significant for a leukocytosis, his gave him prednisone yesterday. He als had an LP and a CT which were normal. He was admitted to the ICU. Past Medical History Medical History: Medical History (Last Updated 02/04/18 @ 15:13 by Teressa Anderson) Crohns disease K50.90 HTN (hypertension) I10 Allergies ciprofloxacin [From Cipro] Adverse Reaction (Verified 02/03/18 19:36) Other hallucinations Home Medications: Ambulatory Orders Medication Instructions Recorded Surgical History: colectomy Psychiatric History: No pertinent psych hx Lives: Spouse/ Significant Other Smoking Status: Never smoker Tobacco Use: Non-smoker Alcohol: None Drugs: None - *Family History Paternal History Items: No pertinent history, - - No h/o IBD Review of Systems Constitutional: Denies: Chills, Fever, Weight Change Eyes: Denies: Blurred vision, Vision Change HEENT: Denies: Head Aches, Sinus Congestion, Sinus Drainage Cardiovascular: Denies: Chest Pain, Palpitations Respiratory: Denies: Cough, Shortness of Breath, Shortness of breath at rest, Sputum production Gastrointestinal: Denies: Abdominal Pain, Nausea, Vomiting Genitourinary: Denies: Dysuria Musculoskeletal: Reports: Arm Pain, Leg Pain, Muscle pain, Neck Pain, Shoulder Pain Skin: Denies: Rash, Wounds Neurological: Reports: Focal weakness. Denies: Difficulty swallowing, Numbness, Tingling Psychiatric: Denies: Anxiety, Depression, Homicidal Ideations, Suicidal Ideations Hematologic/ Lymphatic: Denies: Easy Bruising, Easy Bleeding VTE Information - Inpt Only VTE Present on Admission: No Patient Problems: Active and Suspected Problems (Last Updated 02/04/18 @ 15:13 by Teressa Anderson) Proximal weakness of extremity (Acute) Crohns disease (Acute) - Physical Exam General: Alert, Oriented x3, Cooperative, No apparent distress HEENT: Atraumatic, EOMI, Normocephalic Oral: Moist Mucosa Neck: Supple, No JVD Lungs: Clear to auscultation, Normal air movement, No rhonchi, No wheeze, No rales Cardiovascular: Regular rate, Regular Rhythm, Normal S1, Normal S2, No murmurs Abdomen: Soft, Non Tender, Non-Distended, No Hepato-splenomegaly Extremities: No edema, Capillary Refill Less than 3 Seconds Skin: No rashes, No breakdown Musculoskeletal: Tenderness - to palpation of the biceps and quads Neurological: Sensory exam intact to light touch and pain, - - 3/5 strength in his hip flexors b/l, plantar and dorsi flexion ar intact b/l Psych/Mental Status: Normal Affect, Appropriate Vital Signs Temp Pulse Resp BP Pulse Ox 96.6 F L 89 18 133/85 H 97 02/04/18 10:45 02/04/18 14:12 02/04/18 14:12 02/04/18 14:12 02/04/18 14:12 Oxygen Delivery Method Room Air Weight: 231 lb Body Mass Index (BMI) 35.1 Assessment/Plan All Active Problems (Last Updated 02/04/18 @ 15:13 by Teressa Anderson) Proximal weakness of extremity (Acute) Crohns disease (Acute) 1. 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 None TYPE CODE TESTS RESULT OUT OF RANGE REFERENCE UNITS LAB L505.0075 TO BE Normal CONFIRMED Result Comment: CONFIRMATORY TESTING FOR ALL POSITIVE URINE DRUG SCREEN RESULTS WILL ONLY BE SENT OUT UPON PHYSICIAN ORDER. VISTA Urine Drug Screen methods provide only preliminary analytical test results. A more specific alternate chemical method must be used in order to obtain a confirmed analytical result. Gas chromatography/mass spectrometery (GC/MS) is the preferred confirmatory method. Clinical consideration and professional judgement should be applied to any drug of abuse test result, particularly when preliminary positive results are used. URINE TCA TESTING MUST BE ORDERED SEPARATELY. USE TEST MNEMONIC: [facility] LAB L505.5005 VISTA UDS PH 6 Normal LAB L505.5015 <1000 ng/mL AMPHETAMINES Normal NEGATIVE LAB L505.5025 < 200 ng/mL BARBITIURATES Normal NEGATIVE LAB L505.5035 < 200 ng/mL BENZODIAZIPINE Normal NEGATIVE LAB L505.5045 < 300 ng/mL COCAINE Normal NEGATIVE LAB L505.5055 < 500 ng/mL ECSTACY Normal NEGATIVE LAB L505.5065 < 300 ng/mL METHADONE Normal NEGATIVE LAB L505.5075 < 300 High ng/mL OPIATES POSITIVE LAB L505.5085 < 25 ng/mL PCP Normal NEGATIVE LAB L505.5095 < 50 ng/mL THC Normal NEGATIVE Performed By: #### L505.5000 #### [facility] [address] [place], [address] CORTISOL SERUM Collected: 02/04/2018 Status: F Source: JACKSON 5:00 PM [facility] REPOSITORY Order Comment: BASELINE OR POST MEDICATION STIMULATION?: Baseline TYPE CODE TESTS RESULT OUT OF RANGE REFERENCE UNITS LAB L509.6000 3.09-22.40 ug/dL Normal CORTISOL 8.10 Result Comment: Adult (AM) 4.30 - 22.40 ug/dL Adult (PM) 3.09 - 16.66 ug/dL Performed By: #### L509.6000 #### [facility] [address] [place], [place], [address] CRP Collected: 02/04/2018 Status: F Source: JACKSON 5:00 [facility] REPOSITORY TYPE CODE TESTS RESULT OUT OF RANGE REFERENCE UNITS LAB L501.6710 0.0-3.0 mg/L High 225.00 C-REACTIVE PROT Result Comment: C-Reactive Protein (CRP) provides useful information for the diagnosis, therapy and monitoring of inflammatory processes and associated diseases. For the evaluation of Relative Risk for Cardiovascular Disease, a High Sensitivity CRP (HSCRP) should be ordered. Performed By: #### L501.6710 #### [facility] [address] [place], [address] ANCA Collected: 02/04/2018 Status: F Source: JACKSON 5:00 [facility] REPOSITORY TYPE CODE TESTS RESULT OUT OF RANGE REFERENCE UNITS LAB L3300.1225 Neg:<1:20 titer CYTOPLASMIC Normal Ab <1:20 LAB L3300.1250 Neg:<1:20 titer PERINUCLEAR Normal Ab <1:20 Result Comment: The presence of positive fluorescence exhibiting P-ANCA or C-ANCA patterns alone is not specific for the diagnosis of Teresa's Granulomatosis (WG) or microscopic polyangiitis. Decisions about treatment should not be based solely on ANCA IFA results. The International ANCA Group Consensus recommends follow up testing of positive sera with both DE- 3 and MPO-ANCA enzyme immunoassays. As many as 5% serum samples are positive only by EIA. Ref. AM J Clin Pathol 1999;111:507-513. LAB L3300.1285 Neg:<1:20 titer Normal Atypical pANCA <1:20 Result Comment: The atypical pANCA pattern has been observed in a significant percentage of patients with ulcerative colitis, primary sclerosing cholangitis and autoimmune hepatitis. Performed at: [facility] [address] [id number] Vascular Tech: Chong Guadarrama PhD, Phone: [phone] Performed By: #### L3300.1200 #### [facility] (refer to report for specific site) refer to report for address and phone number ANN W/ REFLEX MULT Collected: 02/04/2018 Status: F Source: JACKSON CONFIRM 5:00 PM [facility] REPOSITORY TYPE CODE TESTS RESULT OUT OF RANGE REFERENCE UNITS LAB L3100.5475 Negative Normal Negative ANN-DIRECT Result Comment: Performed at: [facility] [id number] Vascular Tech: Chong Guadarrama PhD, Phone: [phone] Performed By: #### L3100.5450 #### [facility] (refer to report for specific site) refer to report for address and phone number SPINE CERVICAL Observed: 02/04/2018 Status: F Source: ALY (ROUTINE) 3:35 PM [facility] REPOSITORY [facility] Imaging Services [address] [place] [id number] Spine Cervical (Routine) MR#: [id number] Acct: [id number] Name: ANNABELLA ELLIOTT Rep #: [id number] : 1980 M 37 From: Alicia Foster MD PCP: Care Physician, No Primary Status: ADM IN Study: Spine Cervical (Routine) Date of Exam: 02/04/18 Exam# [id number] Ordering Dr: Jus Varela MD STUDY: MRI CERVICAL SPINE WITHOUT CONTRAST REASON FOR EXAM: Male, 37 years old. Bilateral arm weakness. Patient also has leg weakness. TECHNIQUE: Standardized fat and water weighted pulse sequences were obtained in the sagittal and axial planes. COMPARISON: None FINDINGS: Normal foramen magnum and brainstem-cervical cord junction. Normal craniovertebral junction. Normal anterior atlantoaxial articulation. Normal odontoid process. Normal cervical lordosis. Normal vertebral bodies and posterior osseous elements. C2-3: Normal endplates. Normal disc height, signal and morphology. Normal central canal and intervertebral neural foramina. C3-4: Normal endplates. Normal disc height, signal and morphology. Normal central canal. There is moderate narrowing of the right neural foramen and severe narrowing of the left neural foramen with potential nerve impingement.. There is mild uncovertebral and facet joint arthropathy.. C4-5: Normal endplates. There is a mild disc bulge and osteophyte complex. Normal central canal. There is moderate narrowing of bilateral intervertebral neural foramina with questionable left-sided nerve impingement.. C5-6: There is narrowing of the stenosis with a right central broad disc protrusion. There is moderate bilateral neural foraminal narrowing. There is no significant central acquired canal stenosis. C6-7: There is a right central broad disc protrusion. There appears to be severe right-sided neural foraminal narrowing with potential nerve impingement. The left neural foramen is patent. There is no significant central acquired canal stenosis. C7-T1: Normal endplates. Normal disc height, signal and morphology. Normal central canal and intervertebral neural foramina. Normal cervical cord. There is no demonstrated cervical cord syrinx cavity. Normal visualized soft tissue structures. MRI/Spine Cervical (Routine) IMPRESSION: Multilevel degenerative disc disease and degenerative arthropathy of the cervical spine with neural foraminal narrowing and potential nerve impingement, as described. Electronically Signed: Alicia Foster MD at 19:23 EDT , Service support , CC: No Primary Care Physician; Jus Varela MD Trackwalker: Signed SPINE LUMBAR Observed: 02/04/2018 Status: F Source: JACKSON (ROUTINE) 3:35 PM [facility] REPOSITORY [facility] Imaging Services [address] [place] [address] Spine Lumbar (Routine) MR#: [id number] Acct: [id number] Name: ANNABELLA ELLIOTT Rep #: [id number] : 1980 M 37 From: Alicia Foster MD PCP: Care Physician, No Primary Status: ADM IN Study: Spine Lumbar (Routine) Date of Exam: 02/04/18 Exam# [id number] Ordering Dr: Jus Varela MD STUDY: MRI LUMBAR SPINE WITHOUT CONTRAST REASON FOR EXAM: Male, 37 years old. Leg weakness and pain with movement. TECHNIQUE: Standardized fat and water weighted pulse sequences were obtained in the sagittal and axial planes. COMPARISON: CT of the abdomen and pelvis dated November 22, 2017. FINDINGS: T12-L1: Normal endplates. Normal disc height, signal and morphology. Normal bilateral facet joints. Normal central canal and bilateral lateral recesses. Normal bilateral intervertebral neural foramina. Normal lumbar lordosis. There is no substantial scoliosis. Normal conus medullaris that terminates at the L1-2 level. There is a focus of abnormal T1 and T2 hyperintensity within the L3 vertebral body that probably represents a hemangioma. There is also focus of abnormal T1 and T2 hyperintensity within the S1 vertebral segment that may represent a hemangioma. L1-2: Normal endplates. Normal disc height, signal and morphology. Normal bilateral facet joints. Normal central canal and bilateral lateral recesses. Normal bilateral intervertebral neural foramina. L2-3: Normal endplates. Normal disc height, signal and morphology. Normal bilateral facet joints. Normal central canal and bilateral lateral recesses. Normal bilateral intervertebral neural foramina. L3-4: Normal endplates. Normal disc height, signal and morphology. Normal bilateral facet joints. Normal central canal and bilateral lateral recesses. Normal bilateral intervertebral neural foramina. L4-5: There is mild annular disk bulge and osteophyte complex. There is mild degenerative arthropathy of the facet joints. Bilateral neuroforamina are narrowed without MR evidence for nerve impingement. There is no significant acquired central canal stenosis. L5-S1: There is mild annular disk bulge and osteophyte complex. There is mild degenerative arthropathy of the facet joints. Bilateral neuroforamina are narrowed without MR evidence for nerve impingement. There is no significant acquired central canal stenosis. Normal visualized sacral ala. Normal visualized paraspinous soft tissue structures. MRI/Spine Lumbar (Routine) IMPRESSION: Mild multilevel degenerative disc disease and degenerative arthropathy of the lumbar spine, as described. Electronically Signed: Alicia Foster MD at 19:39 EDT , Service support , CC: No Primary Care Physician; Jus Varela MD Trackwalker: Signed NCS AND/OR EMG Observed: 02/04/2018 Status: F Source: JACKSON PATIENT 3:16 PM [facility] REPOSITORY [facility] Pulmonary Services/Neurology [address] [place] [address] MR#: [id number] Acct: [id number] Name: ANNABELLA ELLIOTT Rep #: [id number] : 1980 37 From: Jus Varela MD Referring Dr: Scar Obrien MD Status: ADM IN Ordering Dr: Date: Location: ICU ICU06- Sex: M C NCS and/or EMG Patient Report Ordering Doctor: Jus Varela DATE OF SERVICE: 02/04/18 right upper and right lower ext NCV is performed to evaluate acute weakness in this 37 yo male. in the right upper extremity normal median motor and sensory, normal ulnar motor and sensory, and normal radial sensory responses are obtained in the right lower extremity, normal sural sensory responses are obtained. the common peroneal motor and tibial motor responses are normal. f-wave latencies from the median, ulnar, tibial and common peroneal nerves are seen normal h-reflexes from the bilateral tibial nerves are obtained. impression: normal NCV of the right upper and lower extremity without evidence of conduction block. 02/04/18 1516 <Electronically signed by Jus Varela MD> Date Jus Varela MD CC: No Primary Care Physician; Scar Obrien MD; Jus Varela MD Date Dictated: 02/04/181507 Date Transcribed: 02/04/181507 Trackwalker: BRITTANY Signed EMERGENCY DEPARTMENT Observed: 02/04/2018 Status: F Source: ALY SUMMARY 2:55 PM [facility] REPOSITORY [facility] Medical Records Department [address] [place] [address] Emergency Department Summary 02/03/18 2311 MR#: [id number] Acct: [id number] Name: ANNABELLA ELLIOTT Rep #: [id number] : 1980 37 From: Raj Boyd MD PCP: OUT OF TOWN DOCTOR Status: DEP ER 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 He reports he has myalgias that began yesterday in his jaw. They have gradually increased. He reports that now his neck and shoulders are stiff and painful. Today it is now radiated from his shoulders down into his arms bilaterally. He reports that his lower buttocks and hamstrings bilaterally are aching as well. No recent trauma. No fall, MVA, or change in activity. He denies any arthralgias. Review of systems: General: No fever, chills, cold sweats. Cardiovascular: No chest pain, palpitations. Respiratory: No cough, shortness of breath, dyspnea on exertion. Gastrointestinal: No abdominal pain, vomiting, diarrhea, melena, or hematochezia. Genitourinary: No dysuria, frequency, hematuria. Skin: No rash. Neuro: No headache, numbness, weakness. Physical Examination: Vitals: Stable. Afebrile. General: Well-nourished and well-developed. Head: Normocephalic atraumatic. Neck: Supple, no lymphadenopathy. No JVD. Nontender. Cardiovascular: Regular rate and rhythm. No murmurs. Respiratory: No respiratory distress. Clear to auscultation bilaterally. Abdominal: Soft, nontender, nondistended, normal bowel sounds. No guarding, rebound, or peritoneal signs. Back: Nontender. Extremities: Mild tenderness to palpation over his deltoids, biceps, and triceps bilaterally. Mild tenderness palpation over his thighs bilaterally. He is neurovascular intact distal this. No erythema or warmth to suggest infection., no edema. Skin: Normal color, no rash. Neurologic: Alert and oriented 3. Cranial nerves II through XII are intact. Normal strength and sensation. Psych: Normal affect. Test Results: CPK is normal. Chem-7 is normal. CBC is remarkable for a white count of 16.8 with 84 segmented neutrophils and 9 lymphocytes. However, the patient is on prednisone. EKG is sinus tachycardia [address] changes. Emergency Department Course and Treatment: Patient was treated with a dose of morphine and Zofran IV. He was given Valium p.o. Treatment Plan: Patient will be discharged prescription for 10 Valium and 10 Percocet. Instructed to follow-up his primary care physician 1-2 days if not improving. Return to the emergency department for any worsening symptoms. Disposition: To home in improved and stable condition. Impression: 1. Myalgias, uncertain cause. This note was generated with [employer] dictation software. It may contain incorrect words, spelling, and punctuation that were not noted in review of the chart prior to signing ED Disposition - Plan for ED Patient: Disposition: Home or Assisted Living Chief Complaint: General Illness Instructions: ED Muscle Aching Referrals: Doctor,Your [STAFF PHYSICIAN] - 1-2 Days if not improving What to do if you have Problems For any increased pain, shortness of breath, bleeding, nausea or vomiting, chest pain, or any unexpected problems, contact your Primary Care Provider. Call [facility] ([phone]) or report to the closest Emergency Room. Call 911 if necessary. 02/04/18 9927 <Electronically signed by Raj Boyd MD> Date Raj Boyd MD Cosigner Signature (If Indicated): Date CC: OUT OF TOWN DOCTOR EMERGENCY DEPARTMENT Observed: 02/04/2018 Status: F Source: JACKSON SUMMARY 1:35 PM [facility] REPOSITORY [facility] Medical Records Department [address] [place] [address] Emergency Department Summary 02/04/18 1116 MR#: [id number] Acct: [id number] Name: ANNABELLA ELLIOTT Rep #: [id number] : 1980 37 From: Chris Parnell DO PCP: Care Physician, No Primary Status: REG ER - ER Visit Summary Date of Service: 02/04/18 Chief Complaint: Weakness History of Present Illness: The patient is a 37 M who presents with progressive weakness in his arms and legs for the past 2 days. Patient states he has pain in his arms and legs that is worse with movement. Patient describes it as a constant aching but sharp with movement. Patient states he seems to be worse in the hips and shoulders. Patient denies any fevers or chills. Patient denies any recent illness. Patient denies any recent immunizations. Patient denies any chest pain or shortness of breath. Patient denies any nausea or vomiting. Patient denies any headaches. Physical Examination: Vital signs are stable. Patient is afebrile. Patient is in no acute distress. Oral mucosa is pink and moist. Neck is supple. Trachea is midline. There is no JVD noted. Heart was regular rate and rhythm. Lungs are clear and equal bilaterally. There is good respiratory effort noted. Abdomen is soft. Bowel sounds are normal. There is no tenderness noted. Cranial nerves II through XII are intact. Strength is 4 out of 5 bilaterally in the upper and lower extremities. Patient appears to have more difficulty moving his shoulders and hips than he does his hands and feet. Sensation was intact to light touch in all dermatomes. Test Results: CBC shows a leukocytosis of 15.6 with 92% neutrophils. Total bilirubin was elevated 2.10. The remaining labs are within normal limits. Cerebrospinal fluid analysis was essentially within normal limits. Emergency Department Course and Treatment: Case was discussed with Dr. V[place]. He did not recommend starting steroids at this time. He stated he would obtain additional labs. Case was discussed with Dr. Nieves. Patient will be admitted to ICU. Case was discussed with Dr. Obrien, the hospitalist. Patient will be admitted to his service. Disposition: Admit to ICU Impression: Extremity weakness This note was generated with [employer] dictation software. It may contain incorrect words, spelling, and punctuation that were not noted in review of the chart prior to signing ED Disposition - Plan for ED Patient: Disposition: Acute Care [facility] Chief Complaint: Weakness Diagnosis: Proximal weakness of extremity Referrals: [facility] Doctor,Out of [NON-STAFF] - What to do if you have Problems For any increased pain, shortness of breath, bleeding, nausea or vomiting, chest pain, or any unexpected problems, contact your Primary Care Provider. Call [facility] ([phone]) or report to the closest Emergency Room. Call 911 if necessary. 02/04/18 1335 <Electronically signed by Chris Parnell DO> Date Chris Parnell DO Cosigner Signature (If Indicated): Date CC: No Primary Care Physician SPINAL FLUID CELL Collected: 02/04/2018 Status: C Source: ALY COUNT+DIFF 11:45 AM [facility] REPOSITORY Order Comment: Order Date: 02/04/18 Has pt arrived? Y TYPE CODE TESTS RESULT OUT OF RANGE REFERENCE UNITS LAB L200.2695 0.000-0.000 10 3/uL High TC CSF 0.002 Result Comment: This is the Total Number of Nucleated Cell Types in the Body Fluid. LAB L200.2750 0.000-0.000 10 3/uL High WBC,CSF 0.002 LAB L200.3000 Normal PATH REV Reviewed Result Comment: Acellular specimen. Saad Adan M.D. 02/07/18 AMENDED REPORT 02/07/187 PATH REV previously reported as: May follow LAB L200.3510 % BF Normal PMN WBC% 50.0 LAB L200.3515 % BF MN Normal WBC% 50.0 LAB L200.3520 10 3/uL BF MN Normal WBC# 0.001 LAB L200.3525 10 3/uL BF Normal PMN WBC# 0.001 LAB L200.2500 4 Normal TESTED TUBE # LAB L200.2600 Colorless CSF Normal Color COLORLESS LAB L200.2650 Clear Normal APPEARANCE CSF CLEAR LAB L200.2700 None seen /mm-3 0 Normal RBC,CSF Performed By: #### L200.0100 #### [facility] [address] [place], [address] GLUCOSE SPINAL FLUID Collected: 02/04/2018 Status: F Source: JACKSON 11:45 AM [facility] REPOSITORY TYPE CODE TESTS RESULT OUT OF RANGE REFERENCE UNITS LAB L501.0400 40-75 mg/dL Normal GLU SPINAL 58 FLD Performed By: #### L501.0400 #### [facility] [address] [place], [address] PROTEIN SPINAL FLUID Collected: 02/04/2018 Status: F Source: JACKSON 11:45 AM [facility] REPOSIT[facility] TYPE CODE TESTS RESULT OUT OF RANGE REFERENCE UNITS LAB L501.1600 15.0-45.0 mg/dL Normal PROTEIN CSF 44.0 Performed By: #### L501.1600 #### [facility] [address] [place], [address] Observed: 02/04/2018 Status: F Source: ALY CULTURE, CSF 11:45 AM [facility] REPOSITORY Gram Stain Gram Stain No White Blood Cells No organisms seen CSF Culture No growth in 72 hours. Performed By: #### M100.0700 #### [facility] [address] [place], [address] CYTOLOGY, BODY FLUID / Collected: 02/04/2018 Status: F Source: ALY CSF 11:45 AM [facility] REPOSITORY Order Comment: Order Date: 02/04/18 Has pt arrived? Y TYPE CODE TESTS RESULT OUT OF RANGE REFERENCE UNITS LAB L350.1000 SEE Normal PATHOLOGY CYTOLOGY,BF REPORT /CSF Result Comment: Specimen submitted to Anatomical Pathology Department for testing. Performed By: #### L350.1000 #### [facility] [address] [place], [address] CBC W/DIFF, AUTOMATED Collected: 02/04/2018 Status: F Source: ALY 11:30 AM [facility] REPOS[facility] TYPE CODE TESTS RESULT OUT OF RANGE REFERENCE UNITS LAB L100.1000 4.4-11.0 K/mm3 High WBC 15.6 LAB L100.1200 4.6-6.2 M/mm3 Normal RBC 5.04 LAB L100.1300 13.0-16.5 g/dl Normal HGB 13.7 LAB L100.1400 40-54 % Normal HCT 40.6 LAB L100.1500 80-94 fL Normal MCV 80.6 LAB L100.1600 27.0-32.0 pg Normal MCH 27.2 LAB L100.1700 32-36 g/gl Normal MCHC 33.7 LAB L100.1810 11.6-14.6 % High RDW CV 15.4 LAB L100.1820 35.1-43.9 fl High RDW SD 45.0 LAB L100.1900 150-450 K/mm3 Normal PLT 210 LAB L100.2000 6.2-12.0 fl Normal MPV 9.9 LAB L100.2100 47-70 % High NEUT% 92.5 LAB L100.2200 19-41 % Low LY% 2.6 LAB L100.2300 0-10 % Normal MONO% 4.6 LAB L100.2400 0-5 % Normal EO% 0.0 LAB L100.2500 0-1 % Normal BASO% 0.1 LAB L100.2550 0.0-0.9 % Normal IM GRAN % 0.200 Result Comment: IG% - Immature Granulocytes (promyelocytes, myelocytes and metamyelocytes) > 1% indicates that a LEFT SHIFT is Present. LAB L100.2620 2.0-7.7 X10 3/uL High Absolute Neut 14.4 LAB L100.2720 0.83-4.51 X10 3/ul Low Absolute Lymph 0.40 Performed By: #### L100.0100 #### [facility] [place], [address] PROTHROMBIN TIME W/INR Collected: 02/04/2018 Status: F Source: ALY 11:30 AM [facility] TYPE CODE TESTS RESULT OUT OF RANGE REFERENCE UNITS LAB L300.4150 11.7-14.9 SECONDS High PROTIME 15.2 LAB L300.4200 Normal INR 1.2 Performed By: #### L300.3900, L300.4310 #### [facility] [address] [place], [address] PARTIAL THROMBOPLAST Collected: 02/04/2018 Status: F Source: JACKSON TIME 11:30 AM [facility] TYPE CODE TESTS RESULT OUT OF REFERENCE UNITS RANGE LAB L300.4310 24.1-36.2 Seconds High PTT 41.1 Performed By: #### L300.3900, L300.4310 #### [facility] [address] [place], [address] COMPREHENSIVE METABOLIC Collected: 02/04/2018 Status: F Source: JACKSON PROFIL 11:30 AM [facility] REPOS[facility] TYPE CODE TESTS RESULT OUT OF RANGE REFERENCE UNITS LAB L501.0100 74-106 mg/dL High GLU 138 Result Comment: Fasting Glucose result greater than or equal to 126 mg/dL suggests DIABETES MELLITUS per A.D.A. criteria. Please note revised GLUCOSE reference range effective 2017. LAB L501.1000 7-18 mg/dL Normal BUN 14 LAB L501.1100 0.70-1.30 mg/dL Normal CREAT,SERUM 1.12 Result Comment: The validity of the calculated GFR AND GFRAA in patients over 70 years has not been determined. Clinical correlation is essential. LAB L501.1110 >60 mL/min Normal EST GFR 78 Result Comment: Non- GFR Calc LAB L501.1115 >60 mL/min Normal EST GFR - AA 94 Result Comment: GFR Calc LAB L501.1255 ml/min Normal Estimated CRCL 86.52 LAB L501.1300 10-20 RATIO Normal BUN/CRE 12.5 LAB L501.1500 6.4-8. g/dL Normal 2 T PROT 7.6 LAB L501.1800 3.2-5. g/dL Normal 0 ALB 3.4 LAB L501.1950 2.2-4. g/dL Normal 2 GLOB 4.2 LAB L501.2000 0.9-2. RATIO Low 4 A/G 0.8 LAB L501.2200 8.5-10 mg/dL Normal .1 CA 9.1 LAB L501.4100 15-37 U/L Low AST 8 LAB L501.4305 45-117 U/L Normal ALK P 71 LAB L501.4405 16-61 U/L Normal ALT 24 LAB L501.4600 0.20-1 mg/dL High .00 T BILI 2.10 LAB L501.5300 136-14 mmol/L Normal 5 NA 140 LAB L501.5600 3.5-5. mmol/L Normal 1 K 3.9 LAB L501.5900 98-107 mmol/L Normal CL 107 LAB L501.6100 21.0-3 mmol/L Normal 2.0 CO2 26.0 LAB L501.6200 5-15 Normal GAP 7 Performed By: #### L500.4050 #### [facility] [address] [place], [address] LACTIC ACID Collected: 02/04/2018 Status: F Source: JACKSON 11:30 AM [facility] Order Comment: Yes/No query for Sepsis Lactate Rule Y TYPE CODE TESTS RESULT OUT OF RANGE REFERENCE UNITS LAB L503.6005 0.4-2.0 mmol/L Normal LACTIC ACID 0.9 Performed By: #### L503.6005 #### [facility] [address] [place], [address] CPK TOTAL, CREATINE Collected: 02/04/2018 Status: F Source: JACKSON KINASE 11:30 AM [facility]POS[facility] TYPE CODE TESTS RESULT OUT OF RANGE REFERENCE UNITS LAB L501.3620 39-308 U/L Low CPK TOTAL 23 Performed By: #### L501.3620, L501.6710, L501.9520 #### [facility] [address] [place], [address] CRP Collected: 02/04/2018 Status: F Source: ALY 11:30 AM [facility] TYPE CODE TESTS RESULT OUT OF RANGE REFERENCE UNITS LAB L501.6710 0.0-3.0 mg/L High 174.00 C-REACTIVE PROT Result Comment: C-Reactive Protein (CRP) provides useful information for the diagnosis, therapy and monitoring of inflammatory processes and associated diseases. For the evaluation of Relative Risk for Cardiovascular Disease, a High Sensitivity CRP (HSCRP) should be ordered. Performed By: #### L501.3620, L501.6710, L501.9520 #### [facility] [address] [place], [address] THYROID STIM HORMONE Collected: 02/04/2018 Status: F Source: ALY (TSH) 11:30 AM [facility] REPOS[facility] TYPE CODE TESTS RESULT OUT OF RANGE REFERENCE UNITS LAB L501.9520 0.358-3.74 uIU/mL Normal TSH 0.71 Performed By: #### L501.3620, L501.6710, L501.9520 #### [facility] [address] [place], [address] ERYTHROCYTE SED RATE Collected: 02/04/2018 Status: F Source: ALY 11:30 AM [facility]POS[facility] TYPE CODE TESTS RESULT OUT OF RANGE REFERENCE UNITS LAB L102.0000 0-15 mm/hr High SED RATE 48 Performed By: #### L101.9900 #### [facility] [address] [place], [address] BRAIN/HEAD WITHOUT Observed: 02/04/2018 Status: F Source: ALY CONTRAST 11:16 AM [facility] REPOSITORY [facility] Imaging Services [address] [address] Brain/Head without Contrast MR#: [id number] Acct: [id number] Name: ANNABELLA ELLIOTT Rep #: [id number] : 1980 M 37 From: Royce Bridges DO PCP: Care Physician, No Primary Status: DIS IN Study: Brain/Head without Contrast Date of Exam: 02/04/18 Exam# [id number] Ordering Dr: Chris Parnell DO ADDENDUM by Royce Bridges on 02/08/[address]/Brain/Head without Contrast 02/08/18 0843 Date cc: No Primary Care Physician; Chris Parnell DO * Signed ADDENDUM by Royce Bridges on 02/08/18 at [address] Bridges: Image count was updated. There is no change to the original report. Electronically Signed: Royce Bridges DO at 8:36 EDT Tel , Service support , 02/08/18 0836 Date cc: No Primary Care Physician; Chris Parnell DO * Signed STUDY: CT BRAIN WITHOUT CONTRAST REASON FOR EXAM: Male, 37 years old. Pain, weakness RADIATION DOSAGE (If Supplied By Facility): CTDIvol = ( 44.99 ) mGy, DLP = ( 846.73 ) mGycm TECHNIQUE: Transaxial CT imaging of the brain was performed without administration of intravenous contrast material. Sagittal and coronal reconstructed images are provided and reviewed. Individualized dose optimization techniques were used for this CT. COMPARISON: None. FINDINGS: Normal soft tissue structures. Normal calvarium. Normal size ventricles and extra-axial spaces for the patient's age. Normal white matter tracts of the cerebral hemispheres. Normal basal ganglia and thalami. Normal brainstem. Normal cerebellum. There is no intracranial hemorrhage. There are no findings of an acute ischemic infarction. Normal visualized paranasal sinuses. CT/Brain/Head without Contrast IMPRESSION: Normal unenhanced CT scan of the brain. Electronically Signed: Royce Bridges DO at 12:52 EDT Tel , Service support , CC: No Primary Care Physician; Chris Parnell DO Trackwalker: Signed CYTOSPIN ON FLUID Observed: 02/04/2018 Status: F Source: ALY 12:00 AM [facility]POS[facility] Patient: ANNABELLA ELLIOTT : 1980 (37/M) Acct Num: [id number] Phys: Lizabeth Charles MD Unit Num: [id number] Loc: MS3 DH902-2 Specimen: [id number] Received: 02/04/18 - 1418 Spec Type: CYSPIN FL TISSUES TISSUES: Cerebrospinal Fluid CYTOLOGY GROSS Received is 0.5 ml of clear fluid labeled with the patient's name and and designated per the requisition as CSF. Submitted for cytology preparation. TC:4 CPT: 15873 CYTOLOGY STUDY Slides are reviewed. DIAGNOSIS CYTOLOGY Cerebrospinal fluid for cytology (cytospin): Acellular specimen. SJ:landon 02/07/18 HEADER OPERATION: Not noted PRE-OP DIAGNOSIS: Weakness TISSUE SUBMITTED: Cerebrospinal fluid for cytology Signed Saad Adan 02/07/18 <signature on file> Performed By: #### PCYSPIN #### [facility] [address] [place] [address]. [place], [address] CBC W/DIFF, AUTOMATED Collected: 02/03/2018 Status: F Source: ALY 9:05 PM [facility] REPOS[facility] TYPE CODE TESTS RESULT OUT OF RANGE REFERENCE UNITS LAB L100.1000 4.4-11.0 K/mm3 High WBC 16.8 LAB L100.1200 4.6-6.2 M/mm3 Normal RBC 5.12 LAB L100.1300 13.0-16.5 g/dl Normal HGB 13.8 LAB L100.1400 40-54 % Normal HCT 41.8 LAB L100.1500 80-94 fL Normal MCV 81.6 LAB L100.1600 27.0-32.0 pg Normal MCH 27.0 LAB L100.1700 32-36 g/gl Normal MCHC 33.0 LAB L100.1810 11.6-14.6 % High RDW CV 15.1 LAB L100.1820 35.1-43.9 fl High RDW SD 44.8 LAB L100.1900 150-450 K/mm3 Normal PLT 201 LAB L100.2000 6.2-12.0 fl Normal MPV 10.1 LAB L100.2100 47-70 % High NEUT% 83.6 LAB L100.2200 19-41 % Low LY% 8.5 LAB L100.2300 0-10 % Normal MONO% 7.5 LAB L100.2400 0-5 % Normal EO% 0.1 LAB L100.2500 0-1 % Normal BASO% 0.1 LAB L100.2550 0.0-0.9 % Normal IM GRAN % 0.200 Result Comment: IG% - Immature Granulocytes (promyelocytes, myelocytes and metamyelocytes) > 1% indicates that a LEFT SHIFT is Present. LAB L100.2620 2.0-7.7 X10 3/uL High Absolute Neut 14.0 LAB L100.2720 0.83-4.51 X10 3/ul Normal Absolute Lymph 1.43 Performed By: #### L100.0100 #### [facility] [address] [place], [address] BASIC METABOLIC Collected: 02/03/2018 Status: F Source: JACKSON PROFILE ([facility]) 9:05 PM [facility] REPOSITORY TYPE CODE TESTS RESULT OUT OF RANGE REFERENCE UNITS LAB L501.0100 74-106 mg/dL Normal GLU 94 Result Comment: Please note revised GLUCOSE reference range effective 2017. LAB L501.1000 7-18 mg/dL Normal BUN 15 LAB L501.1100 0.70-1.30 mg/dL Normal CREAT,SERUM 1.21 Result Comment: The validity of the calculated GFR AND GFRAA in patients over 70 years has not been determined. Clinical correlation is essential. LAB L501.1110 >60 mL/min Normal EST GFR 71 Result Comment: Non- GFR Calc LAB L501.1115 >60 mL/min Normal EST GFR - AA 86 Result Comment: GFR Calc LAB L501.1255 ml/min Normal Estimated CRCL 80.08 LAB L501.1300 10-20 RATIO Normal BUN/CRE 12.4 LAB L501.2200 8.5-10 mg/dL Normal .1 CA 9.0 LAB L501.5300 136-14 mmol/L Normal 5 NA 139 LAB L501.5600 3.5-5. mmol/L Normal 1 K 3.9 LAB L501.5900 98-107 mmol/L Normal CL 103 LAB L501.6100 21.0-3 mmol/L Normal 2.0 CO2 25.0 LAB L501.6200 5-15 Normal GAP 11 Performed By: #### L500.2500 #### [facility] [address] [place], [place], [address] CPK TOTAL, CREATINE Collected: 02/03/2018 Status: F Source: JACKSON KINASE 9:05 PM [facility] REPOS[facility] TYPE CODE TESTS RESULT OUT OF RANGE REFERENCE UNITS LAB L501.3620 39-308 U/L Low CPK TOTAL 29 Performed By: #### L501.3620 #### [facility] [address] [place], [address] CNPN Observed: 12/01/2017 Status: COMPLETED Source: LUIS ENRIQUE 12:00 AM [facility] REPOSITORY Telephone (GASTMN) ANNABELLA ELLIOTT ([id number]) 1980 M Date Time Provider Department 12/01/17 YUNIEL SPRINGER [facility] During your visit today, we recorded the following information about you: Yuniel Springer MD 12/01/2017 4:12 PM Signed Not sure why I received this. I don't see where I have seen the patient. Please refer to ordering provider. NAA ZHAO LPN, DIMITRI 12/06/2017 8:26 AM Addendum has not seen this patient and this message was forwarded to Dr.Qadir NAA ZHAO LPN Allergies As of Date: 12/01/2017 Noted Allergy Reaction CIPROFLOXACIN 03/02/2017 5 - Intolerance Comments: Hallucination Date Reviewed: 11/10/2017 Reviewed by: Ana George LPN - Fully Assessed Reason for Visit: Results [95] Prescriptions as of 12/01/2017 Sig: BUDESONIDE DR - ER 3 MG CAPSU* Take 3 capsules by mouth twic* METRONIDAZOLE 250 MG TABLET Take 1 tablet by mouth twice * PREDNISONE 10 MG TABLET TAKE 3 TABS DAILY X1WK,TAKE 2* Patient not taking: Reported on 11/10/2017 INFLIXIMAB-DYYB 100 MG INTRAV* Infuse 500 mg, (5mg/kg body w* CYANOCOBALAMIN (VIT B-12) 1,0* ERGOCALCIFEROL (VITAMIN D2) 5* LOSARTAN 50 MG TABLET Problem List As Of Date 12/01/2017 Noted Resolved Crohn's disease of small intestine with complic*INVALID FOR* Generalized abdominal pain [R10.84] INVALID FOR* Encounter Status:Closed by NAA ZHAO on 12/02/17 EMERGENCY DEPARTMENT Observed: 11/22/2017 Status: F Source: JACKSON SUMMARY 2:58 PM [facility] REPOSITORY [facility] Medical Records Department [address] [place] [id number] Emergency Department Summary 11/22/17 1222 MR#: [id number] Acct: [id number] Name: ANNABELLA ELLIOTT Rep #: [id number] : 1980 36 From: Roxanne Sheth MD PCP: OUT OF TOWN DOCTOR Status: REG ER - ER Visit Summary Date of Service: 11/22/17 Chief Complaint: Left-sided back pain History of Present Illness: The patient is a 36 M presenting with left-sided back and flank pain. This started around 8 AM this morning. He denies any injury. He has a history of a possible previous kidney stone. He has nausea, no vomiting. No diarrhea. He has history of Crohn's disease. Denies fever. He has mild abdominal cramping. Denies other complaints. Physical Examination: Vitals are stable. Patient is afebrile. Alert no acute distress. HEENT exam is unremarkable. Neck is supple. Lungs are clear and equal bilaterally. Heart is regular rate and rhythm. Abdomen is soft nontender nondistended. No rebound or guarding Back: left CVA tenderness, left paraspinal muscle tenderness Extremities are unremarkable. Skin is warm and dry. No focal neurologic deficit. Remainder of exam is unremarkable. Emergency Department Course and Treatment: Patient is given morphine, Zofran. CBC shows a white count of 12.0. Chemistries normal except creatinine 1.33. Urinalysis shows 0-5 white blood cells, 25-[address] flank shows 3 mm calculus in the proximal portion of the left ureter causing left hydronephrosis. On reevaluation, patient is resting comfortably. He is given a prescription for Percocet and Zofran. Advised to follow-up with primary care physician. Advised return to ED for worsening complaints. Disposition: Discharge home Impression: Urolithiasis This note was generated with [employer] dictation software. It may contain incorrect words, spelling, and punctuation that were not noted in review of the chart prior to signing ED Disposition - Plan for ED Patient: Chief Complaint: Flank Pain Instructions: ED Stone Renal W Colic Prescriptions: Oxycodone HCl/Acetaminophen [Percocet 5/325] 1 tablet PO Q6H PRN PRN 3 Days #12 tablet PRN Reason: Pain Ondansetron [Zofran Odt] 4 mg PO Q8H PRN PRN #10 tablet PRN Reason: Nausea Referrals: Nav Crenshaw MD [STAFF PHYSICIAN] - [facility] Doctor,Out of [Primary Care Provider] - What to do if you have Problems For any increased pain, shortness of breath, bleeding, nausea or vomiting, chest pain, or any unexpected problems, contact your Primary Care Provider. Call [facility] ([phone]) or report to the closest Emergency Room. Call 911 if necessary. 11/22/17 2762 <Electronically signed by Roxanne Sheth MD> Date Roxanne Sheth MD Cosigner Signature (If Indicated): Date CC: OUT OF TOWN DOCTOR DISCHARGE INSTRUCTION Observed: 11/22/2017 Status: F Source: ALY 2:53 PM [facility] REPOSITORY [facility] Medical Records Department [address] [address] Discharge Instruction 11/22/17 1450 MR#: [id number] Acct: [id number] Name: ANNABELLA ELLIOTT Rep #: [id number] : 1980 36 From: Roxanne Sheth MD PCP: OUT OF TOWN DOCTOR Status: REG ER ED Disposition - Plan for ED Patient: Chief Complaint: Flank Pain Instructions: ED Stone Renal W Colic Prescriptions: Oxycodone HCl/Acetaminophen [Percocet 5/325] 1 tablet PO Q6H PRN PRN 3 Days #12 tablet PRN Reason: Pain Ondansetron [Zofran Odt] 4 mg PO Q8H PRN PRN #10 tablet PRN Reason: Nausea Referrals: [facility] Doctor,Out of [Primary Care Provider] - Nav Crenshaw MD [STAFF PHYSICIAN] - What to do if you have Problems For any increased pain, shortness of breath, bleeding, nausea or vomiting, chest pain, or any unexpected problems, contact your Primary Care Provider. Call [facility] ([phone]) or report to the closest Emergency Room. Call 911 if necessary. 11/22/17 1453 <Electronically signed by Roxanne Sheth MD> Date Roxanne Sheth MD Cosigner Signature (If Indicated): Date CC: OUT OF [facility] DOCTOR URINALYSIS, COMPLETE Collected: 11/22/2017 Status: F Source: ALY 2:15 PM [facility] REPOSITORY Order Comment: Has pt arrived? Y How was Urine Obtained? CLEAN CATCH TYPE CODE TESTS RESULT OUT OF RANGE REFERENCE UNITS LAB L400.3000 Yellow COLOR Normal Yellow LAB L400.3050 Clear Normal CLARITY Sl. Cloudy LAB L400.3200 Normal mg/dl Normal GLUCOSE, UR Normal LAB L400.3300 Negative mg/dL Normal BILIRUBIN URINE Negative LAB L400.3400 Negative mg/dl Normal KETONE UR Negative LAB L400.3465 1.002-1.030 Normal SP.GR. DIPSTX 1.015 LAB L400.3550 5.0 - 8.0 pH UR Normal 6.0 LAB L400.3600 Negative mg/dl PROT Normal DIPSTX Negative LAB L400.3700 Normal mg/dl Normal UROBILI Normal LAB L400.3750 Negative Normal NITRITE UR Negative LAB L400.3780 Negative /ul High OCCULT BLOOD-UR 250 LAB L400.3800 Negative /ul High LEUK 25 ESTERASE LAB L400.4050 0-5 /hpf WBC Normal 0-5 SEEN LAB L400.4100 0-5 /hpf Normal RBC-UA 25-50 SEEN LAB L400.4150 0-5 /hpf SQUAM Normal EPI 0-5 SEEN LAB L400.4300 None Seen /hpf 0 Normal BACTERIA SEEN LAB L400.4350 <or=2+ /hpf 0 Normal MUCUS, URINE SEEN LAB L400.4700 <or=2+ /hpf CA OX 2+ Normal CRYSTAL Performed By: #### L400.0001 #### [facility] [address] [facility] [place], [address] ABDOMEN/PELVIS WITHOUT Observed: 11/22/2017 Status: F Source: JACKSON CONT 12:21 PM [facility] REPOSITORY [facility] Imaging Services [address] [place] [address] Abdomen/Pelvis without Cont MR#: [id number] Acct: [id number] Name: ANNABELLA ELLIOTT Rep #: [id number] : 1980 M 36 From: Uri Jenkins MD PCP: OUT OF TOWN DOCTOR Status: REG ER Study: Abdomen/Pelvis without Cont Date of Exam: 11/22/17 Exam# [id number] Ordering Dr: Roxanne Sheth MD STUDY: CT ABDOMEN AND PELVIS WITHOUT CONTRAST REASON FOR EXAM: Male, 36 years old. Left-sided abdominal pain. History of Crohn's disease and prior bowel resection. RADIATION DOSAGE (If Supplied By Facility): CTDIvol = ( 14.80 ) mGy, DLP = ( 881.46 ) mGycm TECHNIQUE: Transaxial images were obtained from the dome of the diaphragm to the symphysis pubis without oral contrast, and without intravenous contrast. Sagittal and coronal images were reconstructed. Individualized dose optimization techniques were used for this CT. COMPARISON: None. FINDINGS: Mild degree of increased markings at the lung bases suggestive of bibasilar atelectasis. The visualized portions of the heart are within normal limits. Normal liver. Normal gallbladder and extrahepatic biliary system. Borderline splenomegaly. Normal pancreas. Normal bilateral adrenal glands. Normal right kidney. Mild degree of left hydronephrosis due to a 3 mm calculus in the proximal portion of the left ureter. Normal visualized stomach. Normal small intestine. The patient is status post right hemicolectomy with anastomosis. The appendix is visualized and appears normal. Normal abdominal aorta. Normal inferior vena cava. Normal retroperitoneum. Normal urinary bladder. Normal abdominal wall. Normal osseous structures. CT/Abdomen/Pelvis without Cont IMPRESSION: 3 mm calculus in the proximal portion of the left ureter causing left hydronephrosis. Electronically Signed: Uri Jenkins MD at 13:46 EDT Tel [phone], Service support , CC: Roxanne Sheth MD; OUT OF TOWN DOCTOR Trackwalker: Signed CBC W/DIFF, AUTOMATED Collected: 11/22/2017 Status: F Source: ALY 12:08 PM [facility] REPOSITORY TYPE CODE TESTS RESULT OUT OF RANGE REFERENCE UNITS LAB L100.1000 4.4-11.0 K/mm3 High WBC 12.0 LAB L100.1200 4.6-6.2 M/mm3 Normal RBC 5.42 LAB L100.1300 13.0-16.5 g/dl Normal HGB 15.0 LAB L100.1400 40-54 % Normal HCT 43.3 LAB L100.1500 80-94 fL Low MCV 79.9 LAB L100.1600 27.0-32.0 pg Normal MCH 27.7 LAB L100.1700 32-36 g/gl Normal MCHC 34.6 LAB L100.1810 11.6-14.6 % High RDW CV 15.3 LAB L100.1820 35.1-43.9 fl High RDW SD 44.8 LAB L100.1900 150-450 K/mm3 Normal PLT 237 LAB L100.2000 6.2-12.0 fl Normal MPV 10.4 LAB L100.2100 47-70 % Normal NEUT% 69.3 LAB L100.2200 19-41 % Normal LY% 20.8 LAB L100.2300 0-10 % Normal MONO% 8.5 LAB L100.2400 0-5 % Normal EO% 0.8 LAB L100.2500 0-1 % Normal BASO% 0.3 LAB L100.2550 0.0-0.9 % Normal IM GRAN % 0.300 Result Comment: IG% - Immature Granulocytes (promyelocytes, myelocytes and metamyelocytes) > 1% indicates that a LEFT SHIFT is Present. LAB L100.2620 2.0-7.7 X10 3/uL High Absolute Neut 8.3 LAB L100.2720 0.83-4.51 X10 3/ul Normal Absolute Lymph 2.49 Performed By: #### L100.0100 #### [facility] [address] [place], [place], [id number] BASIC METABOLIC Collected: 11/22/2017 Status: F Source: [facility] PROFILE ([facility]) 12:08 PM [facility] REPOSITORY TYPE CODE TESTS RESULT OUT OF RANGE REFERENCE UNITS LAB L501.0100 74-106 mg/dL High GLU 114 Result Comment: Fasting Glucose result from 100 to 125 mg/dL suggests IMPAIRED HOMEOSTASIS per A.D.A. criteria. Please note revised GLUCOSE reference range effective 2017. LAB L501.1000 7-18 mg/dL Normal BUN 18 LAB L501.1100 0.70-1.30 mg/dL High CREAT,SERUM 1.33 Result Comment: The validity of the calculated GFR AND GFRAA in patients over 70 years has not been determined. Clinical correlation is essential. LAB L501.1110 >60 mL/min Normal EST GFR 64 Result Comment: Non- GFR Calc LAB L501.1115 >60 mL/min Normal EST GFR - AA 77 Result Comment: GFR Calc LAB L501.1255 ml/min Normal Estimated CRCL 73.57 LAB L501.1300 10-20 RATIO Normal BUN/CRE 13.5 LAB L501.2200 8.5-10 mg/dL Normal .1 CA 9.0 LAB L501.5300 136-14 mmol/L Normal 5 NA 142 LAB L501.5600 3.5-5. mmol/L Low 1 K 3.3 LAB L501.5900 98-107 mmol/L High CL 109 LAB L501.6100 21.0-3 mmol/L Normal 2.0 CO2 24.0 LAB L501.6200 5-15 Normal GAP 9 Performed By: #### L500.2500 #### [facility] [address] [place], [address] PROGRESS Observed: 11/10/2017 Status: COMPLETED Source: [place] 1:34 PM [facility] REPOSITORY HNO ID: [id number] Author: Mk Sanchez Service: (none) Author Type: Physician Type: Progress Notes Filed: 11/10/2017 1:58 PM Note Text: CHIEF COMPLAINT: Patient presents with: Crohns: 4 month follow-up HPI Annabella Elliott is a 36 year old male here today in follow- up Crohn's Disease. He is currently on budesonide and Inflectra with good-control of abdominal pain, nausea, vomiting, diarrhea, constipation or rectal bleeding. Current Outpatient Prescriptions: budesonide, enteric coated (ENTOCORT EC) 3 mg 24 hr capsule Take 3 capsules by mouth twice daily. metroNIDAZOLE (FLAGYL) 250 mg tablet Take 1 tablet by mouth twice daily. infliximab-dyyb (INFLECTRA) 100 mg solr Infuse 500 mg, (5mg/kg body weight) at weeks 0, 2, 6 then every 8 weeks thereafter cyanocobalamin 1,000 mcg/mL soln ergocalciferol, vitamin D2, (DRISDOL) 50,000 unit capsule losartan (COZAAR) 50 mg tablet predniSONE (DELTASONE) 10 mg tablet TAKE 3 TABS DAILY X1WK,TAKE 2 TABS DAILY X1WK,TAKE 1 TAB DAILY X1WK.THEN STOP (Patient not taking: Reported on 11/10/2017) No current facility-administered medications for this visit. ALLERGIES Allergen Reactions - Ciprofloxacin Intolerance Hallucination Social History Substance Use Topics - Smoking status: Former Smoker - Smokeless tobacco: Never Used Comment: Temporary smoker during college - Alcohol use No PAST MEDICAL HISTORY Diagnosis Date - Crohn's disease (HCC) - Hypertension PAST SURGICAL HISTORY Procedure Laterality Date - COLONOSCOPY 05/11/2016 Grade 1 internal hemorrhoids, severe inflammation at surgical site - COLONOSCOPY 06/23/2005 Crohn's activity at ileocolonic anastamosis - COLONOSCOPY 09/17/2006 Persistent surgical anastomotic stricture.Significant inflammation and ulceration on ileal side of anastomosis - PAST SURGICAL HISTORY OF 07/01 right hemicolectomy - PAST SURGICAL HISTORY OF 1998 left ankle broken, screws FAMILY HISTORY Problem Relation Age of Onset - Colon Cancer Paternal Uncle - Breast Cancer Maternal Aunt - Cancer Maternal Grandfather renal cancer REVIEW OF SYSTEMS Review of Systems All other systems reviewed and are negative. PHYSICAL EXAM BP 154/90 Pulse 106 Ht 5' 8 (1.73m) Wt 239 lb (108.4kg) SpO2 98% BMI 36.35 kg/(m2). Physical Exam Constitutional: He is oriented to person, place, and time. He appears well-developed and well-nourished. HENT: Head: Normocephalic. Eyes: Conjunctivae and EOM are normal. Pupils are equal, round, and reactive to light. Neck: Normal range of motion. Neck supple. Cardiovascular: Normal rate, regular rhythm, normal heart sounds and intact distal pulses. Pulmonary/Chest: Effort normal and breath sounds normal. Abdominal: Soft. Bowel sounds are normal. Musculoskeletal: Normal range of motion. Neurological: He is alert and oriented to person, place, and time. He has normal reflexes. Skin: Skin is warm and dry. Psychiatric: He has a normal mood and affect. His behavior is normal. Judgment and thought content normal. Vitals reviewed. Assessment: Crohn's disease of small intestine with complication (hcc) (primary encounter diagnosis) Plan: Continue current medications except reduce dose of Budesonide to 6 mg daily. Return in about 3 months (around 02/10/2018). I have confirmed and edited as necessary, the PFSH and ROS obtained by others. Mk Sanchez MD DATE: 11/10/17 TIME: 1:56 PM CNOV Observed: 11/10/2017 Status: COMPLETED Source: [place] 1:15 PM [facility] REPOSITORY Office Visit (GSTNOR) ANNABELLA ELLIOTT ([id number]) 1980 M Date Time Provider Department 11/10/17 1:15 PM MK SANCHEZ During your visit today, we recorded the following information about you: Pulse Blood pressure Weight Height 106/minute 154/90 108.4 kg 1.727 m Mk Sanchez MD 11/10/2017 1:58 PM Signed CHIEF COMPLAINT: Patient presents with: Crohns: 4 month follow-up HPI Annabella Elliott is a 36 year old male here today in follow- up Crohn's Disease. He is currently on budesonide and Inflectra with good-control of abdominal pain, nausea, vomiting, diarrhea, constipation or rectal bleeding. Current Outpatient Prescriptions: budesonide, enteric coated (ENTOCORT EC) 3 mg 24 hr capsule Take 3 capsules by mouth twice daily. metroNIDAZOLE (FLAGYL) 250 mg tablet Take 1 tablet by mouth twice daily. infliximab-dyyb (INFLECTRA) 100 mg solr Infuse 500 mg, (5mg/kg body weight) at weeks 0, 2, 6 then every 8 weeks thereafter cyanocobalamin 1,000 mcg/mL soln ergocalciferol, vitamin D2, (DRISDOL) 50,000 unit capsule losartan (COZAAR) 50 mg tablet predniSONE (DELTASONE) 10 mg tablet TAKE 3 TABS DAILY X1WK,TAKE 2 TABS DAILY X1WK,TAKE 1 TAB DAILY X1WK.THEN STOP (Patient not taking: Reported on 11/10/2017) No current facility-administered medications for this visit. ALLERGIES Allergen Reactions - Ciprofloxacin Intolerance Hallucination Social History Substance Use Topics - Smoking status: Former Smoker - Smokeless tobacco: Never Used Comment: Temporary smoker during college - Alcohol use No PAST MEDICAL HISTORY Diagnosis Date - Crohn's disease (HCC) - Hypertension PAST SURGICAL HISTORY Procedure Laterality Date - COLONOSCOPY 05/11/2016 Grade 1 internal hemorrhoids, severe inflammation at surgical site - COLONOSCOPY 06/23/2005 Crohn's activity at ileocolonic anastamosis - COLONOSCOPY 09/17/2006 Persistent surgical anastomotic stricture.Significant inflammation and ulceration on ileal side of anastomosis - PAST SURGICAL HISTORY OF 07/01 right hemicolectomy - PAST SURGICAL HISTORY OF 1998 left ankle broken, screws FAMILY HISTORY Problem Relation Age of Onset - Colon Cancer Paternal Uncle - Breast Cancer Maternal Aunt - Cancer Maternal Grandfather renal cancer REVIEW OF SYSTEMS Review of Systems All other systems reviewed and are negative. PHYSICAL EXAM BP 154/90 Pulse 106 Ht 5' 8 (1.73m) Wt 239 lb (108.4kg) SpO2 98% BMI 36.35 kg/(m2). Physical Exam Constitutional: He is oriented to person, place, and time. He appears well-developed and well-nourished. HENT: Head: Normocephalic. Eyes: Conjunctivae and EOM are normal. Pupils are equal, round, and reactive to light. Neck: Normal range of motion. Neck supple. Cardiovascular: Normal rate, regular rhythm, normal heart sounds and intact distal pulses. Pulmonary/Chest: Effort normal and breath sounds normal. Abdominal: Soft. Bowel sounds are normal. Musculoskeletal: Normal range of motion. Neurological: He is alert and oriented to person, place, and time. He has normal reflexes. Skin: Skin is warm and dry. Psychiatric: He has a normal mood and affect. His behavior is normal. Judgment and thought content normal. Vitals reviewed. Assessment: Crohn's disease of small intestine with complication (hcc) (primary encounter diagnosis) Plan: Continue current medications except reduce dose of Budesonide to 6 mg daily. Return in about 3 months (around 02/10/2018). I have confirmed and edited as necessary, the PFSH and ROS obtained by others. Mk Sanchez MD DATE: 11/10/17 TIME: 1:56 PM Referring Provider: MK SANCHEZ [[id number]] Allergies As of Date: 11/10/2017 Noted Allergy Reaction CIPROFLOXACIN 03/02/2017 5 - Intolerance Comments: Hallucination Date Reviewed: 11/10/2017 Reviewed by: Ana George LPN - Fully Assessed Reason for Visit: Crohns [292] Cmt: 4 month follow-up Primary Visit Diagnosis:Crohn's disease of small intestine with complication (HCC) [K50.019] Order(s):CBC + DIFF [SQCBCDIF] Order #: [id number] FUTURE COMP METABOLIC PANEL [SQCMP] Order #: [id number] FUTURE C-REACTIVE PROTEIN (CRP) [SQCRP] Order #: [id number] FUTURE Prescriptions as of 11/10/2017 Sig: BUDESONIDE DR - ER 3 MG CAPSU* Take 3 capsules by mouth twic* METRONIDAZOLE 250 MG TABLET Take 1 tablet by mouth twice * INFLIXIMAB-DYYB 100 MG INTRAV* Infuse 500 mg, (5mg/kg body w* CYANOCOBALAMIN (VIT B-12) 1,0* ERGOCALCIFEROL (VITAMIN D2) 5* LOSARTAN 50 MG TABLET PREDNISONE 10 MG TABLET TAKE 3 TABS DAILY X1WK,TAKE 2* Patient not taking: Reported on 11/10/2017 Problem List As Of Date 11/10/2017 Noted Resolved Crohn's disease of small intestine with complic*INVALID FOR* Generalized abdominal pain [R10.84] INVALID FOR* Disposition: Return in about 3 months (around 02/10/2018). Follow-up and Disposition History Recorded Encounter Status:Closed by MK SANCHEZ on 11/10/17 CBC AND DIFFERENTIAL Collected: 08/27/2017 Status: F Source: [facility] 11:18 AM [facility] REPOSIT[facility] TYPE CODE TESTS RESULT OUT OF REFERENCE UNITS RANGE LAB WBC 3.70-11.00 k/uL WBC High 11.16 LAB RBC 4.20-6.00 m/uL RBC 5.82 LAB HGB 13.0-17.0 g/dL Hemoglobin 15.7 LAB HCT 39.0-51.0 % Hematocrit 49.4 LAB MCV 80.0-100.0 fL MCV 84.9 LAB MCH 26.0-34.0 pG MCH 27.0 LAB MCHC 30.5-36.0 g/dL MCHC 31.8 LAB RDWCV 11.5-15.0 % RDW-CV High 15.5 LAB PLTCT 150-400 k/uL Platelet Count 310 LAB MPV 9.0-12.7 fL MPV 10.7 LAB ANEUT % Neut% 84.7 LAB AANEUT 1.45-7.50 k/uL Abs Neut High 9.45 LAB ALYMP % Lymph% 9.2 LAB AALYMP 1.00-4.00 k/uL Abs Lymph 1.03 LAB AMONO % [place]% 5.4 LAB AAMONO <0.87 k/uL Abs [place] 0.60 LAB AEOS % Eosin% 0.3 LAB AAEOS <0.46 k/uL Abs Eosin 0.03 LAB ABASO % Baso% 0.4 LAB AABASO <0.11 k/uL Abs Baso 0.05 LAB AUNRBC 0 /100 WBC NRBCs 0.0 LAB ABNRBC <0.01 k/uL Absolute nRBC <0.01 LAB DTYP DTYPE Auto Diff Performed By: #### CBCDIF, CMP, CRP #### [facility] [address] [place], [place] [address] #### IFXNEU #### [facility] [address] [place] [address] [phone] COMP METABOLIC PANEL Collected: 08/27/2017 Status: F Source: [place] 11:18 AM [facility] REPOSITORY TYPE CODE TESTS RESULT OUT OF REFERENCE UNITS RANGE LAB TP 6.3-8.0 g/dL Protein, Total 7.6 LAB ALB 3.9-4.9 g/dL Albumin 4.4 LAB CA 8.5-10.2 mg/dL Calcium, Total 9.8 LAB TBIL 0.2-1.3 mg/dL Bilirubin, Total 0.7 LAB ALKP 36-108 U/L Alkaline Phosphatase 84 LAB AST 14-40 U/L AST 18 LAB GLU 74-99 mg/dL Glucose High 105 Result Comment: The [place] Diabetes Association (ADA) provides guidance for cutoff values for fasting glucose and random glucose. The ADA defines fasting as no caloric intake for at least 8 hours. Fas ting plasma glucose results between 100 to 125 mg/dL indicate increased risk for diabetes (prediabetes). Fasting plasma glucose results greater than or equal to 126 mg/dL meet the criteria for diagnosis of diabetes. In the absence of unequivocal hyperglycemia, results should be confirmed by repeat testing. In a patient with classic symptoms of hyperglycemia or hyperglycemic crisis, random plasma glucose results greater than or equal to 200 mg/dL meet the criteria for diagnosis of diabetes. Reference: Standards of Medical Care in Diabetes 2016, [place] Diabetes Association. Diabetes Care. 2016.39(Suppl 1). LAB BUN 9-24 mg/dL BUN 18 LAB CRET 0.73-1.22 mg/dL Creatinine 1.01 LAB NA 136-144 mmol/L Sodium 140 LAB K 3.7-5.1 mmol/L Potassium 4.4 LAB CL 97-105 mmol/L Chloride 102 LAB CO2 22-30 mmol/L CO2 24 LAB AGAP 9-18 mmol/L Anion Gap 14 LAB ALT 10-54 U/L ALT 25 LAB GFRAA eGFR- Amer. >60 LAB GFRNAA . eGFR-All Other Races >60 Result Comment: eGFR (Estimated GFR) Units of measure: mL/min/1.73 meters squared eGFR is derived from the reexpressed MDRD Study equation using the following parameters: serum creatinine, age, gender and race. The creatinine assay has been calibrated to be traceable to IDMS. An eGFR <60 mL/min/1.73m2 for >3 months is consistent with chronic kidney disease. Refer to KDOQI guidelines for clinical interpretation. In patients with unstable renal function, e.g. those with acute kidney injury, the eGFR may not accurately reflect actual GFR. Performed By: #### CBCDIF, CMP, CRP #### [facility] [address] [place] [address] #### IFXNEU #### [facility] [address] [place] [address] [phone] C-REACTIVE PROTEIN Collected: 08/27/2017 Status: F Source: [place] 11:18 [facility] REPOSITORY TYPE CODE TESTS RESULT OUT OF REFERENCE UNITS RANGE LAB CRP <0.9 mg/dL C-Reactive 0.7 Protein Performed By: #### CBCDIF, CMP, CRP #### [facility] [address] [address] #### IFXNEU #### [facility] [address] [place] [address] [phone] INFLIXMAB ACT/XIMENA AB Collected: 08/27/2017 Status: F Source: [place] 11:18 AM [facility] REPOSITORY TYPE CODE TESTS RESULT OUT OF REFERENCE UNITS RANGE LAB IFXA ug/mL Infliximab 21.34 Activity Result Comment: (NOTE) INTERPRETIVE INFORMATION: Infliximab and Infliximab-dyyb Activity and Neutralizing Antibody This test measures the capacity of infliximab to neutralize TNF-alpha activity. Additionally, infliximab neutralizing antibodies (NAb) are titered (reporting the minimal serum dilution at which blocking of infliximab activity is no longer observed). This test is used to evaluate secondary response failures to infliximab therapy. Secondary response failure is defined as loss of clinical response after initial improvement of clinical signs and symptoms. Therapeutic decision should rest on both the clinical response and the knowledge of the fate of the drug including the emergence of immunogenicity in individual patients. Circulating infliximab levels have been shown to vary considerably between patients. These differences relate to route and frequency of administration and patient-related features such as age, gender, weight, drug metabolism, and concomitant medications such as methotrexate and other immunosuppressants. Infliximab Infliximab Activity Neutralizing Ab. Titer Interpretation Not Detected Not Detected A higher dosage of infliximab or shortening the dosing interval may be appropriate. Not Detected 1:20 or A change to another anti-TNF- greater alpha drug may be appropriate. 0.65 ug/mL Not Detected A change to another type of or greater therapy (not targeting TNF- alpha) may be appropriate. 0.65 ug/mL 1:20 or Repeat testing is suggested to or greater greater rule out decreasing infliximab activity and/or increasing infliximab neutralizing antibodies. Test developed and characteristics determined by [employer] See Compliance Statement B: [facility] IFXT Not Detected Infliximab NOT Ab Titer DETECTED LAB EERIFX EER SEE Infliximab NOTE Result Comment: (NOTE) Access [employer] Global Enhanced Report using either link below: -Direct access: [email or web address] -Enter Username, Password: [email or web address] Username: [email or web address] Password: [email or web address] Performed by [employer] [address] [place] [id number] [email or web address], Tab Louie MD, Lab. Director Performed By: #### CBCDIF, CMP, CRP #### [facility] [address] [place], [place] [address] #### IFXNEU #### [facility] [address] [place] [address] [phone] AMMY Observed: 08/26/2017 Status: COMPLETED Source: [place] 1:00 PM [facility] REPOSITORY Office Visit (GSTNOR) ANNABELLA ELLIOTT ([id number]) 1980 M Date Time Provider Department 08/26/17 1:00 PM MK SANCHEZ GSTEMMANUEL During your visit today, we recorded the following information about you: Blood pressure Weight Height 124/76 103 kg 1.727 m Mk Sanchez MD 08/26/2017 2:04 PM Signed CHIEF COMPLAINT: Patient presents with: Crohns: flare up HPI Annabella Elliott is a 36 year old male here today for complaint of Crohn's flare. He is currently on Inflectra/biosimilar for Remicade. .He has had 4 infusions thus far, and the last being 2 weeks ago. He was doing well during the first 3 doses and started to wean off the Flagyl and Prednisone, then by last Wednesday started with abdominal discomfort and bloating. When he stopped the Prednisone, noted definite change in stool, from 2-3 formed stools daily to 5-6 loose stools, then to constipation. No abdominal pain today, did start back on 10 mg Prednisone on 6 days ago. No complaint of rectal bleeding. No upper GI complaint. Had one episode of vomiting. No fever or chills. Current Outpatient Prescriptions: predniSONE (DELTASONE) 10 mg tablet TAKE 3 TABS DAILY X1WK,TAKE 2 TABS DAILY X1WK,TAKE 1 TAB DAILY X1WK.THEN STOP infliximab-dyyb (INFLECTRA) 100 mg solr Infuse 500 mg, (5mg/kg body weight) at weeks 0, 2, 6 then every 8 weeks thereafter cyanocobalamin 1,000 mcg/mL soln ergocalciferol, vitamin D2, (DRISDOL) 50,000 unit capsule losartan (COZAAR) 50 mg tablet budesonide, enteric coated (ENTOCORT EC) 3 mg 24 hr capsule Take 3 capsules by mouth twice daily. metroNIDAZOLE (FLAGYL) 250 mg tablet Take 1 tablet by mouth twice daily. No current facility-administered medications for this visit. ALLERGIES Allergen Reactions - Ciprofloxacin Intolerance Hallucination Social History Substance Use Topics - Smoking status: Former Smoker - Smokeless tobacco: Never Used Comment: Temporary smoker during college - Alcohol use No PAST MEDICAL HISTORY Diagnosis Date - Crohn's disease (HCC) - Hypertension - PMH - PAST MEDICAL HISTORY OF 1999 Crohn's PAST SURGICAL HISTORY Procedure Laterality Date - COLONOSCOP W/ OR W/O [facility] SPEC 11/02 Colonoscopy - COLONOSCOPY 04/2016 - PAST SURGICAL HISTORY OF 07/01 right hemicolectomy - PAST SURGICAL HISTORY OF 1998 left ankle broken, screws FAMILY HISTORY Problem Relation Age of Onset - Colon Cancer Paternal Uncle - Breast Cancer Maternal Aunt - Cancer Maternal Grandfather renal cancer REVIEW OF SYSTEMS Review of Systems Gastrointestinal: Positive for abdominal pain. Change in bowel habits All other systems reviewed and are negative. PHYSICAL EXAM BP 124/76 Ht 5' 8ANDquot; (1.73m) Wt 227 lb (103.0kg) BMI 34.52 kg/(m2). Physical Exam Constitutional: He is oriented to person, place, and time. He appears well-developed and well-nourished. HENT: Head: Normocephalic. Eyes: Conjunctivae and EOM are normal. Pupils are equal, round, and reactive to light. Neck: Normal range of motion. Neck supple. Cardiovascular: Normal rate, regular rhythm, normal heart sounds and intact distal pulses. Pulmonary/Chest: Effort normal and breath sounds normal. Abdominal: Soft. Bowel sounds are normal. There is tenderness in the right lower quadrant. Musculoskeletal: Normal range of motion. Neurological: He is alert and oriented to person, place, and time. He has normal reflexes. Skin: Skin is warm and dry. Psychiatric: He has a normal mood and affect. His behavior is normal. Judgment and thought content normal. Vitals reviewed. Assessment: Crohn's disease of small intestine with complication (hcc) (primary encounter diagnosis) Plan: Office Visit on 08/26/17 -CBC + DIFF -COMP METABOLIC PANEL -C-REACTIVE PROTEIN (CRP) -INFLIXIMAB ACTIVITY AND NEUTRALIZING AB Stop Prednisone and add Entocort 9 mg daily Continue Inflectra infusion. Return in about 2 months (around 10/26/2017). I have confirmed and edited as necessary, the PFSH and ROS obtained by others. Mk Sanchez MD DATE: 08/26/17 TIME: 1:58 PM Referring Provider: SELF [[id number]] Allergies As of Date: 08/26/2017 Noted Allergy Reaction CIPROFLOXACIN 03/02/2017 5 - Intolerance Comments: Hallucination Date Reviewed: 08/26/2017 Reviewed by: Mk Sanchez - Fully Assessed Reason for Visit: Crohns [292] Cmt: flare up Primary Visit Diagnosis:Crohn's disease of small intestine with complication (HCC) [K50.019] Order(s):budesonide, enteric coated (ENTOCORT EC) 3 mg 24 hr capsuleTake 3 capsules by mouth twice daily.Disp: 90 capsuleRfl: 3 metroNIDAZOLE (FLAGYL) 250 mg tabletTake 1 tablet by mouth twice daily.Disp: 60 tabletRfl: 3 CBC + DIFF [SQCBCDIF] Order #: [id number] FUTURE COMP METABOLIC PANEL [SQCMP] Order #: [id number] FUTURE C-REACTIVE PROTEIN (CRP) [SQCRP] Order #: [id number] FUTURE INFLIXIMAB ACTIVITY AND NEUTRALIZING AB [SQIFXNEU] Order #: [id number] FUTURE Prescriptions as of 08/26/2017 Sig: PREDNISONE 10 MG TABLET TAKE 3 TABS DAILY X1WK,TAKE 2* INFLIXIMAB-DYYB 100 MG INTRAV* Infuse 500 mg, (5mg/kg body w* CYANOCOBALAMIN (VIT B-12) 1,0* ERGOCALCIFEROL (VITAMIN D2) 5* LOSARTAN [address] - ER 3 MG CAPSU* Take 3 capsules by mouth twic* METRONIDAZOLE 250 MG TABLET Take 1 tablet by mouth twice * Problem List As Of Date 08/26/2017 Noted Resolved Crohn's disease of small intestine with complic*INVALID FOR* Generalized abdominal pain [R10.84] INVALID FOR* Prescriptions ordered this encounter Disp Refills Start End BUDESONIDE DR - ER 3 MG CAPSULE,RYAN* 90 c* 3 08/26/2017 Route: ORAL Sig: Take 3 capsules by mouth twice daily. METRONIDAZOLE 250 MG TABLET 60 t* 3 08/26/2017 12/24/2017 Route: ORAL Sig: Take 1 tablet by mouth twice daily. Medications Discontinued During This Encounter metroNIDAZOLE (FLAGYL) 250 mg tablet 60 t* 3 07/21/2017 08/26/2017 Sig: TAKE 1 TABLET BY MOUTH TWICE DAILY. Disc: Course of therapy completed Disposition: Return in about 2 months (around 10/26/2017). Follow-up and Disposition History Recorded Encounter Status:Closed by MK SANCHEZ on 08/26/17 PROGRESS Observed: 08/26/2017 Status: COMPLETED Source: [facility] 8:22 AM [facility] [place] REPOSITORY HNO ID: [id number] Author: Mk Sanchez Service: (none) Author Type: Physician Type: Progress Notes Filed: 08/26/2017 2:04 PM Note Text: CHIEF COMPLAINT: Patient presents with: Crohns: flare up HPI Annabella Elliott is a 36 year old male here today for complaint of Crohn's flare. He is currently on Inflectra/biosimilar for Remicade. .He has had 4 infusions thus far, and the last being 2 weeks ago. He was doing well during the first 3 doses and started to wean off the Flagyl and Prednisone, then by last Wednesday started with abdominal discomfort and bloating. When he stopped the Prednisone, noted definite change in stool, from 2-3 formed stools daily to 5-6 loose stools, then to constipation. No abdominal pain today, did start back on 10 mg Prednisone on 6 days ago. No complaint of rectal bleeding. No upper GI complaint. Had one episode of vomiting. No fever or chills. Current Outpatient Prescriptions: predniSONE (DELTASONE) 10 mg tablet TAKE 3 TABS DAILY X1WK,TAKE 2 TABS DAILY X1WK,TAKE 1 TAB DAILY X1WK.THEN STOP infliximab-dyyb (INFLECTRA) 100 mg solr Infuse 500 mg, (5mg/kg body weight) at weeks 0, 2, 6 then every 8 weeks thereafter cyanocobalamin 1,000 mcg/mL soln ergocalciferol, vitamin D2, (DRISDOL) 50,000 unit capsule losartan (COZAAR) 50 mg tablet budesonide, enteric coated (ENTOCORT EC) 3 mg 24 hr capsule Take 3 capsules by mouth twice daily. metroNIDAZOLE (FLAGYL) 250 mg tablet Take 1 tablet by mouth twice daily. No current facility-administered medications for this visit. ALLERGIES Allergen Reactions - Ciprofloxacin Intolerance Hallucination Social History Substance Use Topics - Smoking status: Former Smoker - Smokeless tobacco: Never Used Comment: Temporary smoker during college - Alcohol use No PAST MEDICAL HISTORY Diagnosis Date - Crohn's disease (HCC) - Hypertension - PMH - PAST MEDICAL HISTORY OF 1999 Crohn's PAST SURGICAL HISTORY Procedure Laterality Date - COLONOSCOP W/ OR W/O [facility] SPEC 11/02 Colonoscopy - COLONOSCOPY 04/2016 - PAST SURGICAL HISTORY OF 07/01 right hemicolectomy - PAST SURGICAL HISTORY OF 1998 left ankle broken, screws FAMILY HISTORY Problem Relation Age of Onset - Colon Cancer Paternal Uncle - Breast Cancer Maternal Aunt - Cancer Maternal Grandfather renal cancer REVIEW OF SYSTEMS Review of Systems Gastrointestinal: Positive for abdominal pain. Change in bowel habits All other systems reviewed and are negative. PHYSICAL EXAM BP 124/76 Ht 5' 8 (1.73m) Wt 227 lb (103.0kg) BMI 34.52 kg/(m2). Physical Exam Constitutional: He is oriented to person, place, and time. He appears well-developed and well-nourished. HENT: Head: Normocephalic. Eyes: Conjunctivae and EOM are normal. Pupils are equal, round, and reactive to light. Neck: Normal range of motion. Neck supple. Cardiovascular: Normal rate, regular rhythm, normal heart sounds and intact distal pulses. Pulmonary/Chest: Effort normal and breath sounds normal. Abdominal: Soft. Bowel sounds are normal. There is tenderness in the right lower quadrant. Musculoskeletal: Normal range of motion. Neurological: He is alert and oriented to person, place, and time. He has normal reflexes. Skin: Skin is warm and dry. Psychiatric: He has a normal mood and affect. His behavior is normal. Judgment and thought content normal. Vitals reviewed. Assessment: Crohn's disease of small intestine with complication (hcc) (primary encounter diagnosis) Plan: Office Visit on 08/26/17 -CBC + DIFF -COMP METABOLIC PANEL -C-REACTIVE PROTEIN (CRP) -INFLIXIMAB ACTIVITY AND NEUTRALIZING AB Stop Prednisone and add Entocort 9 mg daily Continue Inflectra infusion. Return in about 2 months (around 10/26/2017). I have confirmed and edited as necessary, the PFSH and ROS obtained by others. Mk Sanchze MD DATE: 08/26/17 TIME: 1:58 PM CBC AND DIFFERENTIAL Collected: 07/13/2017 Status: F Source: [facility] 3:13 PM [facility] REPOSITORY TYPE CODE TESTS RESULT OUT OF REFERENCE UNITS RANGE LAB WBC 3.70-11.00 k/uL WBC High 16.70 LAB RBC 4.20-6.00 m/uL RBC 5.82 LAB HGB 13.0-17.0 g/dL Hemoglobin 15.6 LAB HCT 39.0-51.0 % Hematocrit 49.5 LAB MCV 80.0-100.0 fL MCV 85.1 LAB MCH 26.0-34.0 pG MCH 26.8 LAB MCHC 30.5-36.0 g/dL MCHC 31.5 LAB RDWCV 11.5-15.0 % RDW-CV High 17.9 LAB PLTCT 150-400 k/uL Platelet Count 252 LAB MPV 9.0-12.7 fL MPV 11.2 LAB ANEUT % Neut% 87.9 LAB AANEUT 1.45-7.50 k/uL Abs Neut High 14.68 LAB ALYMP % Lymph% 6.3 LAB AALYMP 1.00-4.00 k/uL Abs Lymph 1.06 LAB AMONO % [place]% 5.4 LAB AAMONO <0.87 k/uL Abs [place] High 0.90 LAB AEOS % Eosin% 0.1 LAB AAEOS <0.46 k/uL Abs Eosin <0.03 LAB ABASO % Baso% 0.3 LAB AABASO <0.11 k/uL Abs Baso 0.05 LAB AUNRBC 0 /100 WBC NRBCs 0.0 LAB ABNRBC <0.01 k/uL Absolute nRBC <0.01 LAB DTYP DTYPE Auto Diff Performed By: #### CBCDIF, CMP, CRP #### [facility] [address] [place], [place] [address] COMP METABOLIC PANEL Collected: 07/13/2017 Status: F Source: [place] 3:13 PM [facility] REPOSITORY TYPE CODE TESTS RESULT OUT OF REFERENCE UNITS RANGE LAB TP 6.3-8.0 g/dL Protein, Total 7.5 LAB ALB 3.9-4.9 g/dL Albumin 4.2 LAB CA 8.5-10.2 mg/dL Calcium, Total 9.1 LAB TBIL 0.2-1.3 mg/dL Bilirubin, Total 0.6 LAB ALKP 36-108 U/L Alkaline Phosphatase 71 LAB AST 14-40 U/L Low AST 13 LAB GLU 74-99 mg/dL Glucose 95 Result Comment: The [place] Diabetes Association (ADA) provides guidance for cutoff values for fasting glucose and random glucose. The ADA defines fasting as no caloric intake for at least 8 hours. Fas ting plasma glucose results between 100 to 125 mg/dL indicate increased risk for diabetes (prediabetes). Fasting plasma glucose results greater than or equal to 126 mg/dL meet the criteria for diagnosis of diabetes. In the absence of unequivocal hyperglycemia, results should be confirmed by repeat testing. In a patient with classic symptoms of hyperglycemia or hyperglycemic crisis, random plasma glucose results greater than or equal to 200 mg/dL meet the criteria for diagnosis of diabetes. Reference: Standards of Medical Care in Diabetes 2016, [place] Diabetes Association. Diabetes Care. 2016.39(Suppl 1). LAB BUN 9-24 mg/dL BUN 16 LAB CRET 0.73-1.22 mg/dL Creatinine 1.02 LAB NA 136-144 mmol/L Sodium 140 LAB K 3.7-5.1 mmol/L Potassium 3.8 LAB CL 97-105 mmol/L Chloride 100 LAB CO2 22-30 mmol/L CO2 25 LAB AGAP 9-18 mmol/L Anion Gap 15 LAB ALT 10-54 U/L ALT 20 LAB GFRAA eGFR- Amer. >60 LAB GFRNAA . eGFR-All Other Races >60 Result Comment: eGFR (Estimated GFR) Units of measure: mL/min/1.73 meters squared eGFR is derived from the reexpressed MDRD Study equation using the following parameters: serum creatinine, age, gender and race. The creatinine assay has been calibrated to be traceable to IDMS. An eGFR <60 mL/min/1.73m2 for >3 months is consistent with chronic kidney disease. Refer to KDOQI guidelines for clinical interpretation. In patients with unstable renal function, e.g. those with acute kidney injury, the eGFR may not accurately reflect actual GFR. Performed By: #### CBCDIF, CMP, CRP #### [facility] [address] [place], [place] [address] C-REACTIVE PROTEIN Collected: 07/13/2017 Status: F Source: [place] 3:13 PM [facility] [place] REPOSITORY TYPE CODE TESTS RESULT OUT OF REFERENCE UNITS RANGE LAB CRP <0.9 mg/dL C-Reactive 0.3 Protein Performed By: #### CBCDIF, CMP, CRP #### [facility] [address] [place], [place] [address] PROGRESS Observed: 07/07/2017 Status: COMPLETED Source: [place] 10:52 AM [facility] [place] REPOSITORY HNO ID: [id number] Author: Mk Sanchez Service: (none) Author Type: Physician Type: Progress Notes Filed: 07/07/2017 1:26 PM Note Text: CHIEF COMPLAINT: Patient presents with: Crohns: follow up HPI Annabella Elliott is a 36 year old male here today for follow up of Crohn's disease currently on Inflectra infusions. He has had 3 infusions to date and today reports he is doing well. No complaint of rectal bleeding, abdominal pain has improved, does have some occasional discomfort and/or gasseousness. Previously he states he was permanently constipated, only 2 occurrences in the last couple months. No current upper GI complaint. Current Outpatient Prescriptions: predniSONE (DELTASONE) 10 mg tablet TAKE 3 TABS DAILY X1WK,TAKE 2 TABS DAILY X1WK,TAKE 1 TAB DAILY X1WK.THEN STOP infliximab-dyyb (INFLECTRA) 100 mg solr Infuse 500 mg, (5mg/kg body weight) at weeks 0, 2, 6 then every 8 weeks thereafter metroNIDAZOLE (FLAGYL) 250 mg tablet Take 1 tablet by mouth twice daily. cyanocobalamin 1,000 mcg/mL soln ergocalciferol, vitamin D2, (DRISDOL) 50,000 unit capsule losartan (COZAAR) 50 mg tablet No current facility-administered medications for this visit. ALLERGIES Allergen Reactions - Ciprofloxacin Intolerance Hallucination Social History Substance Use Topics - Smoking status: Former Smoker - Smokeless tobacco: Never Used Comment: Temporary smoker during college - Alcohol use No PAST MEDICAL HISTORY Diagnosis Date - Crohn's disease (HCC) - Hypertension - PMH - PAST MEDICAL HISTORY OF 2000 Crohn's PAST SURGICAL HISTORY Procedure Laterality Date - COLONOSCOP W/ OR W/O [facility] SPEC 11/02 Colonoscopy - COLONOSCOPY 04/2016 - PAST SURGICAL HISTORY OF 07/01 right hemicolectomy - PAST SURGICAL HISTORY OF 1998 left ankle broken, screws FAMILY HISTORY Problem Relation Age of Onset - Colon Cancer Paternal Uncle - Breast Cancer Maternal Aunt - Cancer Maternal Grandfather renal cancer REVIEW OF SYSTEMS Review of Systems Constitutional: Positive for fatigue. All other systems reviewed and are negative. PHYSICAL EXAM BP 118/80 Pulse 80 Wt 226 lb (102.5kg) Physical Exam Constitutional: He is oriented to person, place, and time. He appears well-developed and well-nourished. HENT: Head: Normocephalic. Eyes: Conjunctivae and EOM are normal. Pupils are equal, round, and reactive to light. Neck: Normal range of motion. Neck supple. Cardiovascular: Normal rate, regular rhythm, normal heart sounds and intact distal pulses. Pulmonary/Chest: Effort normal and breath sounds normal. Abdominal: Soft. Bowel sounds are normal. Musculoskeletal: Normal range of motion. Neurological: He is alert and oriented to person, place, and time. He has normal reflexes. Skin: Skin is warm and dry. Psychiatric: He has a normal mood and affect. His behavior is normal. Judgment and thought content normal. Vitals reviewed. Assessment: Crohn's disease of small intestine with complication (hcc) (primary encounter diagnosis) ; stable Plan: Continue Inflectra every 8 weeks. Return in about 4 months (around 11/04/2017). I have confirmed and edited as necessary, the PFSH and ROS obtained by others. Mk Sanchez MD DATE: 07/07/17 TIME: 1:24 PM ALLERGIES ALLERGIES DATE TYPE / NAME / CODE REACTION SEVERITY SOURCE CODE 02/03/2018 Drug ciprofloxacin/F0060 Other Unknown Aly Allergy/41 79448(RXNORM) Community 8078914([facility]) Repository 03/02/2017 DRUG CIPROFLOXACIN INTOLERANCE [address] Other [id number]([facility]) Repository /[id number] CIP[place]FLOXACIN [place] [address]([facility] [address]) Repository ENCOUNTERS ENCOUNTERS ADMIT/DISCHARGE ACCOUNT NUMBER ADMITTING ENCOUNTER LOCATION SOURCE CLASS 05/25/2018/05/25/20 [id number] DANIEL, Ambulatory [address] Other [place] Repository 05/25/2018/05/25/20 [id number] DANIEL, Inpatient [place] [facility] [address] MEDICAL Repository CENTERBuildi ng:ENDORoom: POOLBed: 05 05/13/2018 [id number] Ambulatory [facility] ding:MEDOUTP Repository 04/08/2018/04/08/20 [id number] Ambulatory [address] Repository 03/18/2018 [id number] Ambulatory [facility] ding:MEDOUTP Repository 03/14/2018/03/14/20 [id number] Ambulatory [address] Main [place] Repository 02/26/2018/02/27/20 [id number] Ambulatory [address] Other [place] Repository 02/26/2018/02/27/20 [id number] Ambulatory NERON [address] MEDICAL Repository CENTERBuildi ng:AKCTB 02/26/2018/02/27/20 [id number] Ambulatory [address] Other [place] Repository 02/26/2018/02/27/20 [id number] Ambulatory AKRON [address] MEDICAL Repository CENTERBuildi ng:AKCTB 02/21/2018/02/22/20 [id number] Ambulatory [address] Main [place] Repository 02/16/2018/02/17/20 [id number] Ambulatory [address] Repository 02/04/2018/02/06/20 [id number] Camille, Inpatient [place] [address] [facility] ding:BB8Qzpe Repository : UT621Knq: 1 02/04/2018 [id number] Camille, Ambulatory BMSBuilding: [place] [facility] Repository 02/04/2018 [id number] Camille, Ambulatory BMSBuilding: [place] [facility] Repository 02/04/2018/02/06/20 [id number] Ambulatory BMSBuilding: [address] Repository 02/04/2018/02/06/20 [id number] Ambulatory BMSBuilding: [address] Repository 02/03/2018/02/04/20 [id number] Emergency [address] ding:ED Repository 01/24/2018 [id number] Ambulatory [facility] ding:MEDOUTP Repository 11/30/2017 [id number] Ambulatory [facility] ding:MEDOUTP Repository 11/22/2017/11/23/19 [id number] Emergency [address] ding:ED Repository 11/10/2017/11/11/19 [id number] Ambulatory [address] Repository 10/06/2017 [id number] Ambulatory [facility] ding:MEDOUTP Repository 08/27/2017/09/01/19 [id number] Ambulatory [address] Repository 08/26/2017/08/27/19 [id number] Ambulatory [address] Repository 08/11/2017 [id number] [facility] ding:MEDOUTP Repository 07/13/2017/07/13/19 [id number] Ambulatory [address] Repository 07/07/2017/07/07/19 [id number] Ambulatory [address] Repository PAYERS PAYERS ENCOUNTER GUARANTOR PAYER SUBSCRIBER SOURCE 05/25/2018 ANNABELLA Sanches Primary ANNABELLA Sanches [facility] SHAKERDOB: Insurance:AETNA SHAKERDOB: Health System [id number] CHOICE POS IIPolicy [id number] Repository [place] Number: [place] [id number]: [phone]) Date: [phone] () 05/13/2018 ANNABELLA Sanches Primary ANNABELLA Lu [id number] Insurance:AETNAPolicy SHAKERB: [facility] CHELLY Number: [id number] [facility] [id number] Repository 644[address]Rcr: ([phone]) Date:4635-10-29[phone] () [id number] RADHA HERRERA [address]LB: 05/13/2018 Secondary NOT GIVENUNK [place] Insurance:SELF PAY [facility] Number: Effective Repository Date:2018-03-18 03/18/2018 ANNABELLA R Primary ANNABELLA R [place] [id number] Insurance:AETNAPolicy SHAKERDOB: Community CHELLY Number: [id number] [facility] CECILIASHAVONNE vt [id number] Repository [address]Khg: ([phone]) Date:7079-61-77QZ [phone] (HP) [id number] [place] [address]QF: 03/18/2018 Secondary NOT GIVENUNK [place] Insurance:SELF PAY [facility]: Effective Repository Date:2018-02-01 02/26/2018 ANNABELLA R Primary ANNABELLA R [facility] SHAKERDOB: Insurance:AETNA SHAKERDOB: Health System CHOICE POS IIPolicy [id number] Repository CHELLY Number: [facility] [place] [id number] [id number]: ([phone]) Date: [phone] (HP) 02/26/2018 ANNABELLA R Primary ANNABELLA R [facility] SHAKERDOB: Insurance:AETNA SHAKERDOB: Health System CHOICE POS IIPolicy [id number] Repository CHELLY [facility] [place] [id number] [address]Bbt: ([phone]) Date: [phone] (HP) 02/04/2018 ANNABELLA R Primary ANNABELLA R Aly [id number] Insurance:AETNAPolicy SHAKERDOB: Community CHELLY Number: [id number] [place], [place] [id number] Repository [address]Emb: ([phone]) Date:1214-42-69SF [phone] (HP) [id number], [place] [address]AX: 02/04/2018 Secondary NOT GIVENUNK [place] Insurance:SELF PAY [facility] Number: Effective Repository Date:2018-02-04 02/04/2018 ANNABELLA R Primary ANNABELLA R A[place] [id number] Insurance:AETNAPolicy SHAKERDOB: Community [place] Number: [id number], [place] [id number] Repository [address]Ppk: ([phone]) Date:8189-69-98HS [phone] (HP) [id number] PASJim[place] RADHA [address]JY: 02/04/2018 Secondary NOT GIVENUNK [place] Insurance:SELF PAY Community [facility] Number: Effective Repository Date:2018-02-04 02/04/2018 ANNABELLA R Primary ANNABELLA R [place] [id number] Insurance:AETNAPolicy SHAKERDOB: Community [place] Number: [id number], [place] [id number] Repository [address]Rav: ([phone]) Date:2053-63-03UA [phone] (HP) [id number] [place] [address]CC: 02/04/2018 Secondary NOT GIVENUNK [place] Insurance:SELF PAY [facility] Number: Effective Repository Date:2018-02-04 02/04/2018 ANNABELLA R Primary ANNABELLA R Aly [id number] Insurance:AETNAPolicy SHAKERDOB: Community [place] Number: [id number], [place] [id number] Repository [address]Idu: ([phone]) Date:6714-63-68ZX [phone] (HP) [id number] [place] [address]ZV: 02/04/2018 Secondary NOT GIVENUNK [place] Insurance:SELF PAY [facility] Number: Effective Repository Date:2018-02-04 02/04/2018 ANNABELLA R Primary ANNABELLA R Aly [id number] Insurance:AETNAPolicy SHAKERDOB: Community [place] Number: [id number], [place] [id number] Repository [address]Nkj: ([phone]) Date:5907-32-08KV [phone] (HP) [id number] PASRADHA Marquez [address]MW: 02/04/2018 Secondary NOT GIVENUNK [place] Insurance:SELF PAY [facility] Number: Effective Repository Date:2018-02-04 02/03/2018 ANNABELLA Sanches Primary ANNABELLA Sanches [place] [id number] Insurance:AETNAPolicy SHAKERDOB: Community [place] Number: [id number], [place] [id number] Repository [address]Uxn: ([phone]) Date:3847-80-77WO [phone] (HP) [id number], [place] [address]PR: 02/03/2018 Secondary NOT GIVENUNK [place] Insurance:SELF PAY [facility] Number: Effective Repository Date:2018-02-03 01/24/2018 ANNABELLA Sanches Primary ANNABELLA Sanches Aly [id number] Insurance:AETNAPolicy SHAKERDOB: Community [place] Number: [id number], [place] [id number] Repository [address]Kmx: ([phone]) Date:8333-28-26QE [phone] (HP) [id number], [place] [address]NY: 01/24/2018 Secondary NOT GIVENUNK [place] Insurance:SELF PAY [facility] Number: Effective Repository Date:2017-10-06 11/30/2017 ANNABELLA Sanches Primary ANNABELLA [place] [id number] Insurance:AETNAPolicy SHAKERDOB: Community [place]LLY Number: [id number], [place] [id number] Repository [address]Lcu: ([phone]) Date:7729-06-96BB [phone] (HP) [id number], [place] [address]TZ: 11/30/2017 Secondary NOT GIVENUNK [place] Insurance:SELF PAY [facility] Number: Effective Repository Date:2017-10-06 11/22/2017 ANNABELLA Sanches Primary ANNABELLA [place] [id number] Insurance:AETNAPolicy SHAKERDOB: Community [place]LLY Number: [id number], [place] [id number] Repository [address]Nfm: ([phone]) Date:0558-78-88WI [phone] (HP) [id number] [place] [address]AI: 11/22/2017 Secondary NOT GIVENUNK Aly Insurance:SELF PAY [facility] Number: Effective Repository Date:2017-11-22 10/06/2017 ANNABELLA R Primary ANNABELLA R Aly [id number] Insurance:AETNAPolicy SHAKERDOB: Community [place] Number: [id number], [place] [id number] Repository [address]Esv: ([phone]) Date:6027-96-35EJ [phone] (HP) [id number] [place] [address]HB: 10/06/2017 Secondary ANNABELLA R A[place] Insurance:PSIZER SHAKERDOB: Community ENCOMPASSPolicy [id number] Number: Repository [id number] Date:4740-15-37JW [address]OMZUNQFAR, [place] [address]BY: . 10/06/2017 Tertiary NOT GIVENUNK [place] Insurance:SELF PAY Community [facility] Number: Effective Repository Date:2017-06-16 08/11/2017 ANNABELLA R Primary ANNABELLA R Aly [id number] Insurance:AETNAPolicy SHAKERDOB: Community [place] Number: [id number], [place] [id number] Repository [address]Slv: ([phone]) Date:6248-42-74YE [phone] (HP) [id number] [place] [address]OO: 08/11/2017 Secondary ANNABELLA R [place] Insurance:PSIZER SHAKERDOB: Community ENCOMPASSPolicy [id number] Hospital Number: Repository [id number] Date:2017-06-16 08/11/2017 Tertiary NOT GIVENUNK [place] Insurance:SELF PAY [facility] Number: Effective Repository Date:2017-06-16
== END ==
DX: K50.019 Crohn's disease of small intestine with unspecified complications (principal)
CPT/HCPCS: 96413; 96415; J7050; A4216; Q5103

== ENCOUNTER → 2018-07-11 12:06 | Outpatient (CLI) | payer OTHER, SELFPAY ==
[2018-05-13 12:39] VITALS: BMI 35.7
[2018-07-11 12:37] VITALS: PULSE 113; RESP 16; TEMP 36.4; O2SAT 98
[2018-07-11] MEDS: Acetaminophen 325 MG Tablet 650 MG PO (12:46)
[2018-07-11] MEDS: DiphenhydrAMINE 25 MG Capsule PO (12:46)
[2018-07-11 12:53] VITALS: BP 132/88
== END ==
PROVIDERS: Family Provider Internal Medicine; PCP Internal Medicine; Referring Provider Internal Medicine Gastroenterology; Visit Provider Internal Medicine Gastroenterology
DX: K50.019 Crohn's disease of small intestine with unspecified complications (principal)
CPT/HCPCS: 96413; 96415; J7050; A4216; Q5103

== ENCOUNTER → 2018-09-02 12:33 | Outpatient (CLI) | payer OTHER, SELFPAY ==
[2018-05-13 12:39] VITALS: BMI 35.7
[2018-09-02 12:39] VITALS: BP 135/86; PULSE 136; RESP 16; TEMP 36.4; O2SAT 96; BMI 34.9
[2018-09-02] MEDS: DiphenhydrAMINE 25 MG Capsule PO (12:44)
[2018-09-02] MEDS: Acetaminophen 325 MG Tablet 650 MG PO (12:44)
== END ==
PROVIDERS: Family Provider Internal Medicine; PCP Internal Medicine; Referring Provider Internal Medicine Gastroenterology; Visit Provider Internal Medicine Gastroenterology
DX: K50.90 Crohn's disease, unspecified, without complications (principal)
CPT/HCPCS: 96413; 96415; J7050; A4216; Q5103

== ENCOUNTER → 2018-10-28 12:25 | Outpatient (CLI) | payer OTHER, SELFPAY ==
[2018-09-02 12:39] VITALS: BMI 34.9
[2018-10-28] MEDS: DiphenhydrAMINE 25 MG Capsule PO (12:45)
[2018-10-28] MEDS: Acetaminophen 325 MG Tablet 650 MG PO (12:45)
[2018-10-28 12:46] VITALS: BP 136/78; PULSE 90; RESP 16; TEMP 36.2; O2SAT 98; BMI 34.9
[2018-10-28 13:26] VITALS: BP 115/75; PULSE 85; RESP 16; TEMP 36.2; O2SAT 98
[2018-10-28 13:37] VITALS: BP 139/73; PULSE 86; RESP 16; TEMP 36.2; O2SAT 98
[2018-10-28 14:00] VITALS: BP 132/77; PULSE 77; RESP 16; TEMP 36.1; O2SAT 98
[2018-10-28 14:17] VITALS: BP 133/79; PULSE 82; RESP 16; TEMP 36.1
== END ==
PROVIDERS: Family Provider Internal Medicine; PCP Internal Medicine; Referring Provider Internal Medicine Gastroenterology; Visit Provider Internal Medicine Gastroenterology
DX: K50.019 Crohn's disease of small intestine with unspecified complications (principal)
CPT/HCPCS: 96413; 96415; J7050; A4216; Q5103

== ENCOUNTER → 2018-12-23 12:16 | Outpatient (CLI) | payer OTHER, SELFPAY ==
[2018-10-28 12:46] VITALS: BMI 34.9
[2018-12-23] VITALS (8 sets, daily range): BP systolic 121–142; BP diastolic 72–88; PULSE 91–101; RESP 15–18; TEMP 36.3–36.7; O2SAT 97–98; BMI 34.9
[2018-12-23] MEDS: Acetaminophen 325 MG Tablet 650 MG PO (12:32)
[2018-12-23] MEDS: DiphenhydrAMINE 25 MG Capsule PO (12:33)
== END ==
PROVIDERS: Family Provider Internal Medicine; PCP Internal Medicine; Referring Provider Internal Medicine Gastroenterology; Visit Provider Internal Medicine Gastroenterology
DX: K50.019 Crohn's disease of small intestine with unspecified complications (principal)
CPT/HCPCS: 96413; 96415; J7050; A4216; Q5103

== ENCOUNTER → 2019-02-17 12:21 | Outpatient (CLI) | payer OTHER, SELFPAY ==
[2018-12-23 12:33] VITALS: BMI 34.9
[2019-02-17 12:44] VITALS: BP 151/88; PULSE 96; RESP 16; TEMP 36.8; O2SAT 99; BMI 34.9
[2019-02-17 13:13] VITALS: BP 136/82; PULSE 88; RESP 16; TEMP 37.1
[2019-02-17 13:52] VITALS: BP 142/90; PULSE 90; RESP 16; TEMP 36.5
== END ==
PROVIDERS: Family Provider Internal Medicine; PCP Internal Medicine; Referring Provider Internal Medicine Gastroenterology; Visit Provider Internal Medicine Gastroenterology
DX: K50.90 Crohn's disease, unspecified, without complications (principal)
CPT/HCPCS: 96413; J7050; A4216; J3380

== ENCOUNTER → 2019-03-03 14:58 | Outpatient (CLI) | payer OTHER, SELFPAY ==
[2019-02-17 12:44] VITALS: BMI 34.9
[2019-03-03 15:29] VITALS: BP 133/80; PULSE 110; RESP 18; TEMP 36.3; O2SAT 99; BMI 34.9
[2019-03-03 15:46] VITALS: BP 132/77; PULSE 102; RESP 16; TEMP 36.4; O2SAT 99
[2019-03-03 16:12] VITALS: BP 131/80; PULSE 109; RESP 16; TEMP 36.6; O2SAT 100
== END ==
PROVIDERS: Family Provider Internal Medicine; PCP Internal Medicine; Referring Provider Internal Medicine Gastroenterology; Visit Provider Internal Medicine Gastroenterology
DX: K50.90 Crohn's disease, unspecified, without complications (principal)
CPT/HCPCS: 96413; J7050; A4216; J3380

== ENCOUNTER → 2019-03-31 14:49 | Outpatient (CLI) | payer OTHER, SELFPAY ==
[2019-02-17 12:44] VITALS: BMI 34.9
[2019-03-03 15:29] VITALS: BMI 34.9
[2019-03-31 14:53] VITALS: BP 134/80; PULSE 110; RESP 18; TEMP 36.3; O2SAT 98; BMI 34.9
[2019-03-31 15:45] VITALS: BP 132/78; PULSE 102; RESP 18; TEMP 36.6; O2SAT 97
== END ==
PROVIDERS: Family Provider Internal Medicine; PCP Internal Medicine; Referring Provider Internal Medicine Gastroenterology; Visit Provider Internal Medicine Gastroenterology
DX: K50.90 Crohn's disease, unspecified, without complications (principal)
CPT/HCPCS: 96413; J7050; A4216; J3380

== ENCOUNTER → 2019-06-02 14:49 | Outpatient (CLI) | payer OTHER, SELFPAY ==
[2019-03-31 14:53] VITALS: BMI 34.9
[2019-05-17 12:34] VITALS: BMI 35.7
[2019-06-02 14:57] VITALS: BP 144/73; PULSE 100; RESP 18; TEMP 36.5; O2SAT 98; BMI 35.7
[2019-06-02 15:27] LABS: Absolute Lymphocyte Count 0.82 X10^3/uL (0.83-4.51); Absolute Neutrophil Count 10.7 X10^3/uL (2.0-7.7); Basophil# 0.04 X10^3/uL; Basophil% 0.3 % (0-1); Eosinophil# 0.03 X10^3/uL; Eosinophils% 0.2 % (0-5); Hematocrit 39.9 % (40-54); Hemoglobin 11.4 g/dL (13.0-16.5); Lymphocyte # 0.82 X10^3/ul (4.0); Lymphocyte % 6.8 % (19-41); Mean Corp Hgb Conc 28.6 g/dL (32-36); Mean Corpuscular Volume 73.3 fL (80-94); Mean Platelet Vol. 10.3 fl (6.2-12.0); Monocyte# 0.48 X10^3/uL; NRBC Flagged by Analyzer 0 % (0-5); Neutrophil # 10.67 X10^3/uL (2.7-7.7); Neutrophil % 88.1 % (47-70); POSITIVE MORPHOLOGY YES; Platelet Count 237 K/mm3 (150-450); RBC Distribution Width CV 26.5 % (11.6-14.6); RBC Distribution Width SD 65.2 fl (35.1-43.9); Red Blood Count 5.44 M/mm3 (4.6-6.2); Reticulocyte Count 1.71 % (0.5-1.5); White Blood Count 12.1 K/mm3 (4.4-11.0)
[2019-06-02 15:30] LABS: Differential Indicated SCAN CRITERIA MET
[2019-06-02 15:44] VITALS: BP 130/86; PULSE 92; RESP 18; TEMP 36.6; O2SAT 95
[2019-06-02 15:57] LABS: AST(SGOT) 10 U/L (15-37); Alanine Aminotransfer ALT/SGPT 23 U/L (16-61); Albumin, Serum 3.6 g/dL (3.2-5.0); Alkaline Phosphatase 96 U/L (45-117); Anion Gap 5 (5-15); BUN 16 mg/dL (7-18); BUN/Creat Ratio 12.8 RATIO (10-20); Calcium,Total 8.4 mg/dL (8.5-10.1); Chloride 107 mmol/L (98-107); Creatinine, Serum 1.25 mg/dL (0.70-1.30); EST Glomerular Filtration Rate 68 mL/min (>60); Est Glom Filt Rate - Afr Amer 83 mL/min (>60); Estimated Creatinine Clearance 76.76 ml/min; Ferritin 53 ng/mL (26-388); Globulin 3.6 g/dL (2.2-4.2); Glucose 124 mg/dL (74-106); Iron 23 ug/dL (65-175); Iron Binding Capacity,Total 362 ug/dL (250-450); LDH 145 U/L (87-241); PERCENT IRON SATURATION 6.4 % (15.0-55.0); Protein, Total 7.2 g/dL (6.4-8.2); Sodium Level 139 mmol/L (136-145)
[2019-06-02 15:58] VITALS: BP 135/75; PULSE 91; RESP 16; O2SAT 97
[2019-06-02 16:02] LABS: Vitamin B12 344 pg/mL (211-911)
[2019-06-02 16:04] LABS: Anisocytosis 2+; Platelet Estimate ADEQUATE (ADEQ); Red Cell Morphology N CHROM NORMAL (NORM C&C); Schistocytes 1+
[2019-06-05 12:34] LABS: Pathologist Review Reviewed
== END ==
PROVIDERS: Internal Medicine Medical Oncology; Family Provider Internal Medicine; PCP Internal Medicine; Referring Provider Internal Medicine Gastroenterology; Visit Provider Internal Medicine Gastroenterology
DX: K50.90 Crohn's disease, unspecified, without complications (principal); D50.8 Other iron deficiency anemias
CPT/HCPCS: 80053; 82607; 82728; 82746; 83540; 83550; 83615; 85025; 85045; 86140; 96413; J7050; A4216; J3380

== ENCOUNTER → 2019-07-28 14:52 | Outpatient (CLI) | payer OTHER, SELFPAY ==
[2019-06-05 14:51] VITALS: BMI 36.3
[2019-06-19 12:15] VITALS: BMI 35.7
[2019-07-28 15:54] VITALS: BP 143/87; PULSE 95; RESP 16; TEMP 36.5; O2SAT 96; BMI 35.7
[2019-07-28 15:58] LABS: Absolute Lymphocyte Count 1.06 X10^3/uL (0.83-4.51); Absolute Neutrophil Count 7.6 X10^3/uL (2.0-7.7); Basophil# 0.03 X10^3/uL; Basophil% 0.3 % (0-1); Eosinophil# 0.11 X10^3/uL; Eosinophils% 1.2 % (0-5); Hematocrit 41.8 % (40-54); Hemoglobin 13.3 g/dL (13.0-16.5); Lymphocyte # 1.06 X10^3/ul (4.0); Lymphocyte % 11.5 % (19-41); Mean Corp Hgb Conc 31.8 g/dL (32-36); Mean Corpuscular Hgb 24.6 pg (27.0-32.0); Mean Corpuscular Volume 77.4 fL (80-94); Mean Platelet Vol. 9.9 fl (6.2-12.0); Monocyte# 0.43 X10^3/uL; Monocyte% 4.6 % (0-10); NRBC Flagged by Analyzer 0 % (0-5); Neutrophil % 82.2 % (47-70); Platelet Count 196 K/mm3 (150-450); RBC Distribution Width CV 17.6 % (11.6-14.6); RBC Distribution Width SD 48.5 fl (35.1-43.9); White Blood Count 9.3 K/mm3 (4.4-11.0)
[2019-07-28 16:15] LABS: ALB/GLOB Ratio 0.9 RATIO (0.9-2.4); AST(SGOT) 19 U/L (15-37); Alanine Aminotransfer ALT/SGPT 35 U/L (16-61); Albumin, Serum 3.3 g/dL (3.2-5.0); Alkaline Phosphatase 96 U/L (45-117); Anion Gap 4 (5-15); BUN 16 mg/dL (7-18); BUN/Creat Ratio 13.1 RATIO (10-20); Calcium,Total 8.5 mg/dL (8.5-10.1); Chloride 112 mmol/L (98-107); Creatinine, Serum 1.22 mg/dL (0.70-1.30); EST Glomerular Filtration Rate 70 mL/min (>60); Est Glom Filt Rate - Afr Amer 85 mL/min (>60); Estimated Creatinine Clearance 78.65 ml/min; Ferritin 243 ng/mL (26-388); Globulin 3.5 g/dL (2.2-4.2); Glucose 123 mg/dL (74-106); Iron 32 ug/dL (65-175); Iron Binding Capacity,Total 270 ug/dL (250-450); LDH 182 U/L (87-241); PERCENT IRON SATURATION 11.9 % (15.0-55.0); Potassium 3.8 mmol/L (3.5-5.1); Protein, Total 6.8 g/dL (6.4-8.2); Sodium Level 140 mmol/L (136-145)
[2019-07-28 16:41] LABS: Vitamin B12 346 pg/mL (211-911)
[2019-07-31 13:25] LABS: Transferrin 214 mg/dL (200-370)
== END ==
PROVIDERS: Internal Medicine Medical Oncology; Family Provider Internal Medicine; PCP Internal Medicine; Referring Provider Internal Medicine Gastroenterology; Visit Provider Internal Medicine Gastroenterology
DX: K50.90 Crohn's disease, unspecified, without complications (principal); D50.8 Other iron deficiency anemias
CPT/HCPCS: 36415; 80053; 82607; 82728; 82746; 83540; 83550; 83615; 84466; 85025; 96413; J7050; A4216; J3380

== ENCOUNTER → 2019-09-22 12:58 | Outpatient (CLI) | payer OTHER, SELFPAY ==
[2019-07-31 13:52] VITALS: BMI 36.8
[2019-09-22] MEDS: 0.9% NaCl IVPB Med Flush (250 mL) 15 ML IV (13:50)
[2019-09-22 14:06] VITALS: BP 145/88; PULSE 110; RESP 16; TEMP 36.6; O2SAT 97; BMI 35.7
[2019-09-22 14:54] LABS: Absolute Lymphocyte Count 0.87 X10^3/uL (0.83-4.51); Absolute Neutrophil Count 11.7 X10^3/uL (2.0-7.7); Basophil# 0.03 X10^3/uL; Basophil% 0.2 % (0-1); Eosinophil# 0.05 X10^3/uL; Eosinophils% 0.4 % (0-5); Hematocrit 44.3 % (40-54); Hemoglobin 14.1 g/dL (13.0-16.5); Lymphocyte # 0.87 X10^3/ul (4.0); Lymphocyte % 6.6 % (19-41); Mean Corp Hgb Conc 31.8 g/dL (32-36); Mean Corpuscular Hgb 25.6 pg (27.0-32.0); Mean Corpuscular Volume 80.4 fL (80-94); Mean Platelet Vol. 10.4 fl (6.2-12.0); Monocyte# 0.48 X10^3/uL; Monocyte% 3.6 % (0-10); NRBC Flagged by Analyzer 0 % (0-5); Neutrophil # 11.67 X10^3/uL (2.7-7.7); Neutrophil % 88.7 % (47-70); Platelet Count 228 K/mm3 (150-450); RBC Distribution Width CV 15.6 % (11.6-14.6); RBC Distribution Width SD 44.2 fl (35.1-43.9); Red Blood Count 5.51 M/mm3 (4.6-6.2); White Blood Count 13.2 K/mm3 (4.4-11.0)
[2019-09-22 15:16] LABS: Vitamin B12 351 pg/mL (211-911)
[2019-09-22 15:28] LABS: AST(SGOT) 15 U/L (15-37); Alanine Aminotransfer ALT/SGPT 45 U/L (16-61); Albumin, Serum 3.7 g/dL (3.2-5.0); Alkaline Phosphatase 101 U/L (45-117); Anion Gap 5 (5-15); BUN 16 mg/dL (7-18); BUN/Creat Ratio 12.6 RATIO (10-20); Calcium,Total 8.9 mg/dL (8.5-10.1); Chloride 106 mmol/L (98-107); Creatinine, Serum 1.27 mg/dL (0.70-1.30); EST Glomerular Filtration Rate 67 mL/min (>60); Est Glom Filt Rate - Afr Amer 81 mL/min (>60); Estimated Creatinine Clearance 75.55 ml/min; Ferritin 85 ng/mL (26-388); Globulin 3.7 g/dL (2.2-4.2); Glucose 114 mg/dL (74-106); Iron 45 ug/dL (65-175); Iron Binding Capacity,Total 320 ug/dL (250-450); LDH 181 U/L (87-241); PERCENT IRON SATURATION 14.1 % (15.0-55.0); Potassium 3.4 mmol/L (3.5-5.1); Protein, Total 7.4 g/dL (6.4-8.2); Sodium Level 137 mmol/L (136-145)
== END ==
PROVIDERS: Internal Medicine Medical Oncology; PCP Internal Medicine; Referring Provider Internal Medicine Gastroenterology; Visit Provider Internal Medicine Gastroenterology
DX: K50.90 Crohn's disease, unspecified, without complications (principal); D50.8 Other iron deficiency anemias
CPT/HCPCS: 80053; 82607; 82728; 82746; 83540; 83550; 83615; 85025; 86140; 96413; J7050; J3380

== ENCOUNTER → 2019-11-17 12:59 | Outpatient (CLI) | payer OTHER, SELFPAY ==
[2019-07-31 13:52] VITALS: BMI 36.8
[2019-10-04 14:41] VITALS: BMI 36.9
[2019-11-17 13:30] VITALS: BP 124/68; PULSE 68; RESP 16; TEMP 36.6; O2SAT 98; BMI 36.9
[2019-11-17] MEDS: 0.9% NaCl Peripheral Flush Adult/Peds IV (13:30)
[2019-11-17] MEDS: 0.9% NaCl IVPB Med Flush (250 mL) 15 ML IV (13:38)
[2019-11-17 13:54] LABS: Absolute Lymphocyte Count 1.06 X10^3/uL (0.83-4.51); Absolute Neutrophil Count 11.4 X10^3/uL (2.0-7.7); Basophil# 0.03 X10^3/uL; Basophil% 0.2 % (0-1); Eosinophil# 0.06 X10^3/uL; Eosinophils% 0.5 % (0-5); Hematocrit 44.4 % (40-54); Hemoglobin 13.6 g/dL (13.0-16.5); Lymphocyte # 1.06 X10^3/ul (4.0); Lymphocyte % 8.1 % (19-41); Mean Corp Hgb Conc 30.6 g/dL (32-36); Mean Corpuscular Hgb 24.5 pg (27.0-32.0); Mean Corpuscular Volume 80.1 fL (80-94); Mean Platelet Vol. 10.2 fl (6.2-12.0); Monocyte# 0.51 X10^3/uL; Monocyte% 3.9 % (0-10); NRBC Flagged by Analyzer 0 % (0-5); Neutrophil # 11.42 X10^3/uL (2.7-7.7); Neutrophil % 86.9 % (47-70); Platelet Count 223 K/mm3 (150-450); RBC Distribution Width CV 15.8 % (11.6-14.6); RBC Distribution Width SD 44.1 fl (35.1-43.9); Red Blood Count 5.54 M/mm3 (4.6-6.2); White Blood Count 13.1 K/mm3 (4.4-11.0)
[2019-11-17 14:16] LABS: AST(SGOT) 8 U/L (15-37); Alanine Aminotransfer ALT/SGPT 27 U/L (16-61); Albumin, Serum 3.7 g/dL (3.2-5.0); Alkaline Phosphatase 92 U/L (45-117); Anion Gap 7 (5-15); BUN 17 mg/dL (7-18); BUN/Creat Ratio 14.3 RATIO (10-20); Chloride 107 mmol/L (98-107); Creatinine, Serum 1.19 mg/dL (0.70-1.30); EST Glomerular Filtration Rate 72 mL/min (>60); Est Glom Filt Rate - Afr Amer 87 mL/min (>60); Globulin 3.8 g/dL (2.2-4.2); Glucose 115 mg/dL (74-106); Potassium 3.5 mmol/L (3.5-5.1); Protein, Total 7.5 g/dL (6.4-8.2); Sodium Level 141 mmol/L (136-145)
== END ==
PROVIDERS: PCP Internal Medicine; Referring Provider Internal Medicine Gastroenterology; Visit Provider Internal Medicine Gastroenterology
DX: K50.80 Crohn's disease of both small and large intestine without complications (principal)
CPT/HCPCS: 80053; 85025; 86140; 96413; J7050; A4216; J3380

== ENCOUNTER → 2020-01-10 12:59 | Outpatient (CLI) | payer OTHER, SELFPAY ==
[2019-10-04 14:41] VITALS: BMI 36.9
[2020-01-05 11:05] VITALS: BMI 35.7
[2020-01-10 13:34] VITALS: BP 144/84; PULSE 105; RESP 14; O2SAT 98; BMI 35.7
[2020-01-10 14:19] VITALS: BP 151/83; PULSE 86; RESP 18; TEMP 36.7
== END ==
PROVIDERS: PCP Internal Medicine; Referring Provider Internal Medicine Gastroenterology; Visit Provider Internal Medicine Gastroenterology
DX: K50.90 Crohn's disease, unspecified, without complications (principal)
CPT/HCPCS: 96413; J7050; J3380

== ENCOUNTER → 2020-03-06 | Outpatient (CLI) | payer OTHER, SELFPAY ==
[2020-01-05 11:05] VITALS: BMI 35.7
[2020-01-12 13:15] VITALS: BMI 35.7
[2020-03-06 13:00] VITALS: BP 135/87; PULSE 85; RESP 16; TEMP 36; O2SAT 97; BMI 35.7
[2020-03-06] MEDS: 0.9% NaCl IVPB Med Flush (250 mL) 15 ML IV (13:12)
[2020-03-06] MEDS: 0.9% NaCl Peripheral Flush Adult/Peds IV (13:13)
== END | disposition home or self-care (01) ==
LOC: MEDOUTP 12:49
PROVIDERS: PCP Internal Medicine; Referring Provider Internal Medicine Gastroenterology; Visit Provider Internal Medicine Gastroenterology
DX: K50.90 Crohn's disease, unspecified, without complications (principal)
CPT/HCPCS: 96413; J7050; A4216; J3380

== ENCOUNTER → 2020-05-01 12:59 | Outpatient (CLI) | payer OTHER, SELFPAY ==
[2020-01-12 13:15] VITALS: BMI 35.7
[2020-03-06 13:00] VITALS: BMI 35.7
[2020-05-01 13:19] VITALS: BP 145/97; PULSE 89; RESP 16; TEMP 36.1; O2SAT 96; BMI 35.7
[2020-05-01] MEDS: 0.9% NaCl IVPB Med Flush (250 mL) 30 ML IV (13:27)
[2020-05-01] MEDS: 0.9% NaCl Peripheral Flush Adult/Peds IV (13:29)
[2020-05-01 14:12] VITALS: BP 147/97; PULSE 89; RESP 16; O2SAT 96
== END ==
PROVIDERS: PCP Internal Medicine; Referring Provider Internal Medicine Gastroenterology; Visit Provider Internal Medicine Gastroenterology
DX: K50.90 Crohn's disease, unspecified, without complications (principal)
CPT/HCPCS: 96413; J7050; A4216; J3380

== ENCOUNTER → 2020-06-26 12:52 | Outpatient (CLI) | payer OTHER, SELFPAY ==
[2020-03-06 13:00] VITALS: BMI 35.7
[2020-06-19 13:04] VITALS: BMI 35.7
[2020-06-26 13:04] VITALS: BP 148/93; PULSE 84; RESP 16; TEMP 36; O2SAT 95; BMI 35.7
[2020-06-26] MEDS: 0.9% NaCl Peripheral Flush Adult/Peds IV (13:07)
[2020-06-26] MEDS: 0.9% NaCl IVPB Med Flush (250 mL) 15 ML IV (13:13)
[2020-06-26 14:03] VITALS: BP 139/91; PULSE 66; RESP 16; TEMP 36.2; O2SAT 99
== END ==
PROVIDERS: PCP Internal Medicine; Referring Provider Internal Medicine Gastroenterology; Visit Provider Internal Medicine Gastroenterology
DX: K50.90 Crohn's disease, unspecified, without complications (principal)
CPT/HCPCS: 96413; J7050; A4216; J3380

== ENCOUNTER 2020-08-21 12:57 | Outpatient (CLI) | payer OTHER, SELFPAY ==
[2020-06-19 13:04] VITALS: BMI 35.7
[2020-07-03 13:10] VITALS: BMI 35.7
[2020-08-21] MEDS: 0.9% NaCl Peripheral Flush Adult/Peds IV (13:03)
[2020-08-21 13:08] VITALS: BP 152/86; PULSE 115; RESP 16; TEMP 36.2; O2SAT 96; BMI 35.7
[2020-08-21] MEDS: 0.9% NaCl IVPB Med Flush (250 mL) 30 ML IV (13:28)
[2020-08-21 14:12] VITALS: BP 145/85; PULSE 101; RESP 16; TEMP 36.3; O2SAT 96; BMI 35.7
== END 2020-08-21 16:00 | disposition home or self-care (01) ==
LOC: MEDOUTP 12:57
PROVIDERS: PCP Internal Medicine; Referring Provider Internal Medicine Gastroenterology; Visit Provider Internal Medicine Gastroenterology
DX: K50.90 Crohn's disease, unspecified, without complications (principal)
CPT/HCPCS: 96413; J7050; A4216; J3380

== ENCOUNTER → 2020-10-16 12:58 | Outpatient (CLI) | payer OTHER, SELFPAY ==
[2020-07-03 13:10] VITALS: BMI 35.7
[2020-09-04 14:57] VITALS: BMI 37.4
[2020-10-16] MEDS: 0.9% NaCl Peripheral Flush Adult/Peds IV (13:20)
[2020-10-16 13:24] VITALS: BP 165/77; PULSE 116; RESP 16; TEMP 36.6; O2SAT 96; BMI 35.7
[2020-10-16] MEDS: 0.9% NaCl IVPB Med Flush (250 mL) 15 ML IV (13:30)
[2020-10-16 14:19] VITALS: BP 156/92; PULSE 105; RESP 14; TEMP 36.7; O2SAT 95
== END ==
PROVIDERS: PCP Internal Medicine; Referring Provider Internal Medicine Gastroenterology; Visit Provider Internal Medicine Gastroenterology
DX: K50.90 Crohn's disease, unspecified, without complications (principal)
CPT/HCPCS: 96365; J7050; A4216; J3380

== ENCOUNTER 2021-07-28 14:28 | Outpatient (CLI) | payer OTHER, SELFPAY ==
[2021-07-28] MEDS: 0.9% Saline Lock 10 ML Syringe IV (14:44)
[2021-07-28 14:48] VITALS: BP 159/112; PULSE 101; RESP 18; TEMP 37; O2SAT 99; BMI 38.7
[2021-07-28 15:29] VITALS: BP 161/103; PULSE 90; RESP 16; TEMP 36.9; O2SAT 99
[2021-07-28 16:21] VITALS: BP 155/102; PULSE 91; RESP 16; TEMP 36.9; O2SAT 98
== END 2021-07-28 23:59 | disposition home or self-care (01) ==
LOC: MS3OUT 14:28 → MS3 14:29
PROVIDERS: PCP Internal Medicine; Referring Provider Nurse Practitioner Adult Health; Visit Provider Nurse Practitioner Adult Health
DX: Z23 Encounter for immunization (principal); U07.1 COVID-19
CPT/HCPCS: J7050; M0247; A4216; Q0247

== ENCOUNTER 2025-01-07 07:04 | Emergency (ER) | payer OTHER, SELFPAY ==
[2025-01-07 07:04] VITALS: BP 137/104; PULSE 116; RESP 22; TEMP 36.7; O2SAT 100; BMI 34.6
--- NOTE | 2025-01-07 07:19 | CT_ITS ---
PROCEDURE: ABDOMEN/PELVIS WITHOUT CONT 01/07/2025 REASON FOR EXAM: PAIN TECHNIQUE: ABDOMEN/PELVIS WITHOUT CONT Noncontrast technique limits evaluation of the abdominal and pelvic viscera. Coronal and Sagittal reconstruction series were provided. One or more dose reduction techniques were used (e.g., Automated exposure control, adjustment of the mA and/or kV according to patient size, use of iterative reconstruction technique). RADIATION DOSE SUMMARY: CTDlvol: 18.25 mGy DLP: 1058.30 mGycm COMPARISON: None. FINDINGS: Lung bases: Clear. Atherosclerotic calcifications of the coronary arteries. Liver: Liver steatosis. Gallbladder: Unremarkable. Spleen: Unremarkable. Pancreas: Fatty infiltration of the liver. Adrenals: Unremarkable. Kidneys: A 5 mm stone at the midpole of the right kidney. A 2 mm stone at the midpole of the right kidney. Perinephric fat stranding. No hydronephrosis. Bladder: Decompressed which limits the evaluation but otherwise unremarkable. Reproductive Organs: Unremarkable. Bowel: Scattered sigmoid colon diverticula. No bowel wall thickening. No bowel obstruction. Appendix: Appendectomy. Lymph nodes: No lymphadenopathy. Vasculature: No aneurysm. Peritoneum / Retroperitoneum: No free air or free fluid. Bones: Age-indeterminate compression fracture of the upper endplate of T12 with 30% height loss and [address]/Abdomen/Pelvis without Cont IMPRESSION: A 5 mm stone at the midpole of the right kidney. A 2 mm stone at the midpole o f the right kidney. Perinephric fat stranding. No hydronephrosis. Correlation with urinalysis is recommended. Age-indeterminate compression fracture of the upper endplate of T12 with 30% he ight loss and 3 mm retropulsion. Reading Location: [facility]
--- NOTE | 2025-01-07 07:20 | EDS_ITS ---
HPI History of Present Illness Chief Complaint: Back Informant: patient Onset/Context/Timing Onset: Days Context: Gradual Onset Injury: lifting and twisting Timing: Continuous Quality: Sharp Location: - (Mid back bilaterally.) Current Severity: Moderate Maximum Severity: Moderate Worsened by: improves with Movement Relieved by: Remaining Still Associated Symptoms Associated Symptoms: Negative for Numbness, Tingling, Radiation to Right Leg, Radiation to Left Leg, Fever, Abdominal Pain, Dysuria, Unable to Ambulate, Unable to Transfer, Urinary Retention, Urinary Incontinence, Constipation or Fecal Incontinence Narrative Narrative: 44-year-old male history of Crohn's with prior hemicolectomy, hypertension and prior kidney stone. States about 6 days ago he started having mid back pain bilaterally. He thought initially he might of injured his back by lifting a child and moving them as he was bending and. Denies any fall or other trauma. No fever, dysuria or hematuria. However he said the pain has been persistent he was just on a cruise cruise [place]. Put him on Tylenol with codeine, Ativan and steroids he said he really has not had significant relief. He does have known degenerative disc disease. Denies any weakness, numbness or radiation to his legs. No abdominal pain. Prior similar symptoms: Yes Recent Illness/Hospitalization: No [facility] Medical History Anemia ankle fx HTN (hypertension) Crohns disease Home Medications ?Medication ?Instructions ?Recorded ?Last Taken ?Type losartan 50 mg tablet 100 mg PO DAILY htn 05/05/17 02/04/18 History budesonide 3 mg 9 mg PO DAILY 10/06/1702/04 History capsule,delayed,extended release (Entocort EC) omeprazole 20 mg capsule,delayed 20 mg PO DAILY PRN He artburn Or 05/03/19 Unknown History release Indigestion vedolizumab 300 mg intravenous See Rx Instructions .Ro q[place] .COMPLEX 03/20/20 Unknown History solution diltiazem HCl 240 mg capsule,24 300 mg PO DAILY Unknown History hr,extended release metoprolol succinate 100 mg 100 mg PO DAILY 07/28/21 U nknown History tablet,extended release 24 hr Allergy/AdvReac Type Severity Reaction Status Date / Time ciprofloxacin (From Cipro) AdvReac Other Verified 01/07/25 07:06 Family History Father Heart disease Surgical History History of hemicolectomy Social History Smoking Status: Never smoker ROS ROS ED ROS Narrative Mid bilateral back pain. Constitutional Constitutional ED: Denies chills or fever(s) Eyes Eyes: Denies blurry vision ENT ENT ED: Denies ear pain Cardiovascular Cardiovascular: Denies chest pain Respiratory/Chest Respiratory/Chest: Denies dyspnea Gastrointestinal Gastrointestinal: Denies abdominal pain, constipation, diarrhea, melena, nausea or vomiting Genitourinary Genitourinary ED: Denies dysuria or hematuria Musculoskeletal Musculoskeletal: Reports back pain; Denies arthralgias Integumentary Denies abscess or Abrasions Neurologic Neurologic: Denies headache(s) Psychiatric Psychiatric: Denies anxiety Endocrine Endocrinology: Denies cold intolerance Hematologic/Lymphatic Hematologic/Lymphatic: Denies easy bleeding, easy bruising or lymphadenopathy Allergic/Immunologic Allergic/Immunologic ED: Denies mouth swelling, tongue swelling or urticaria EXAM Physical Exam Narrative Exam Narrative: 44-year-old male sitting upright in bed. Vital signs are stable afebrile. No acute distress. H EENT exam pupils round react light. Moist mucous members. Neck nontender. Lungs clear to auscultation bilaterally. Heart regular rhythm rate about 110 no murmur. Chest wall and ribs nontender. Abdomen soft nontender. No peritoneal signs. No pulsatile mass. Moving all 4 extremities. 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 Dorsi plantarflexion intact. Both lower extremities are neurovascularly intact with 5 out of 5 dorsi and plantarflexion normal medial thigh sensation. No cauda equina. Normal range of motion. Negative straight leg raise. Back is reproducible paraspinal soft tissue, musculoskeletal tenderness about the distal third of the thoracic and upper lumb ar spine region. Not specifically over the spine. It is worse with movement or sitting upright. Neurologically is awake alert. No focal motor or sensory deficits. Const Vital Signs: 01/07/25 07:04 01/07/25 07:25 Temperature 98.1 F Temperature Source Oral Pulse Rate 116 H 112 H Respiratory Rate 22 H 18 Blood Pressure 137/104 H 144/102 H Blood Pressure Mean 115 116 Pulse Ox 100 98 Oxygen Delivery Method Room Air Room Air Positive well nourished and well developed; Negative for cachectic, contractures or unkempt General Appearance ED: well developed and NAD; Negative for unkempt, cachectic, contractures or pallor Nutritional Appearance: Negative for cachectic HEENT Reports moist mucous membranes Eyes PERRL and EOMs intact bilaterally Neck no lymphadenopathy, supple and no JVD Resp normal respiratory effort and clear to auscultation bilaterally Cardio regular rate, regular rhythm, S1 normal heart sound, S2 normal heart sound and no murmurs GI normal to inspection, nondistended, normoactive bowel sounds, soft to palpation, non-tender, non-distended and no masses Inspection: Negative for abdominal distention Palpation: Negative for tender, guarding, mass, pulsatile mass or rebound tenderness present Back/Spine normal to inspection; Negative for no thoracic nor lumbar tenderness Back/Spine Narrative: Bilateral lower parathoracic and paralumbar tenderness. No ecchymosis or bruising. No redness or warmth. No discoloration of skin. No specific spine tenderness. Thoracic Spine / Upper Back: paraspinal muscle tenderness Extremity normal to inspection and no clubbing, cyanosis or edema General Extremety ED: Negative for edema or tenderness General Extremity: Negative for edema Neuro oriented x3 and no sensory deficits noted Sensorium / Orientation: alert; Negative for confused Psych mental status grossly normal Appearance: Negative for unkempt Skin no rashes or lesions noted and no wounds General Skin Exam: Negative for jaundice or pallor Lesions: No lesion noted Rashes: No rashes noted Trauma: Negative for abrasion Wounds: Negative for wounds noted MDM MDM MDM Narrative Medical decision making narrative: 44-year-old male I suspect this is musculoskeletal back pain with Thoracic paralumbar soft tissue strain and spasm. However it has been going on now around 6 days with no CeeNU improvements actually getting worse. He had a history of a prior kidney stone and he is concerned it could be a recurrent kidney stone. He is really not had any significant urinary symptoms. We treated with IV Toradol, morphine and Zofran. CT will be obtained to evaluate for possible kidney stone UA will be obtained and screening labs. Patient's Repeat exam at 9:20 am patient is doing well. No changes in his pain is much better after Toradol and morphine. We went over his test results. I do think is a secondary to his T12 compression fracture or that is acute or chronic. It is not from a kidney stone. His other labs are unremarkable other than a mild anemia. Patient is comfortable being discharged home with outpatient follow-up. Lab Data Attestation: I reviewed the patient's lab results. Lab results narrative: CBC shows a white count 11.0. H&H 11.7 and 37.4. Platelets 200. Chemistry shows sodium 140. Gap 15. BUN and creatinine of 30 and 1. Glucose 161 Urinalysis is positive for nitrates but no white or red cells nor any bacteria. CAT scan reveals a T12 compression fracture age-indeterminate this may be the cause of his pain. Labs: Laboratory Results - last 24 hr 01/07/25 07:30 WBC 11.0 RBC 4.77 Hgb 11.7 L Hct 37.4 L MCV 78.4 L MCH 24.5 L MCHC 31.3 L RDW Std Deviation 50.5 H RDW Coeff of Demetrius 18.2 H Plt Count 200 MPV 9.4 Immature Gran % (Auto) 1.900 H Neut % (Auto) 80.4 H Lymph % (Auto) 10.0 L Coffey % (Auto) 7.3 Eos % (Auto) 0.2 Baso % (Auto) 0.2 Absolute Neuts (auto) 8.9 H Absolute Lymphs (auto) 1.10 Nucleated RBC % 0 Sodium 140 Potassium 3.9 Chloride 106 Carbon Dioxide 18.9 L Anion Gap 15 BUN 30 H Creatinine 1.03 Estim Creat Clear Calc 105.45 Est GFR (MDRD) Non-Af 91 BUN/Creatinine Ratio 29.4 H Glucose 161 H Calcium 9.3 Urine Color Hyun Urine Clarity Sl. Cloudy Urine pH 5.0 Ur Specific [place] 1.025 Urine Protein 100 H Urine Glucose (UA) 100 H Urine Ketones 15 H Urine Occult Blood 10 H Urine Nitrite Positive H Urine Bilirubin 3 H Urine Urobilinogen 4 H Ur Leukocyte Esterase 25 H Urine RBC 0-5 SEEN Urine WBC 0-5 SEEN Ur Squamous Epith Cells Not Reportable Calcium Oxalate Crystal 1+ Urine Bacteria 0 SEEN Hyaline Casts 5-10 SEEN Urine Mucus 1+ Radiography Diagnostic Testing: Clinical Impression(s) from Imaging Studies Abdomen/Pelvis CT 01/07/25 07:19 IMPRESSION: A 5 mm stone at the midpole of the right kidney. A 2 mm stone at the midpole of the right kidney. Perinephric fat stranding. No hydronephrosis. Correlation with urinalysis is recommended. Age-indeterminate compression fracture of the upper endplate of T12 with 30% height loss and 3 mm retropulsion. Reading Location: [facility] Discharge Plan Triage Chief Complaint: Back ED Provider: Mariusz Gtz Dx/Rx/DC Orders Clinical Impression: Back pain, Closed wedge compression fracture of T12 vertebra, Hx of renal calculi, Anemia, Crohns disease Instructions: Compression Fx, ED Back and Neck Pain, General Prescriptions: No Action losartan 50 MG tablet 100 mg PO DAILY budesonide [Entocort EC] 3 MG capsule 9 mg PO DAILY omeprazole 20 MG capsule 20 mg PO DAILY PRN (Reason: Heartburn Or Indigestion) vedolizumab 300 MG recon soln See Rx Instructions .ROUTE .COMPLEX Rx Instructions: 300 mg intravenously every 8 weeks diltiazem HCl 240 MG capsule,extended release 24 hr 300 mg PO DAILY metoprolol succinate 100 mg Tablet Extended Release 24 Hr 100 mg PO DAILY Primary Care Provider: Edwin Kumar Referrals: Edwin Kumar DO [Primary Care Provider] - As Needed Activity Restrictions/Additional Instructions: You have a compression fracture of thoracic vertebrae T12. That may be old but it might be the cause of your pain. It could happen recently also they cannot tell from the CAT scan. Motrin and Tylenol for pain. Follow-up with your doctor as needed. You have stones in your right kidney but no acute kidney stone. That is not the cause your pain. Print Language: Lao Disposition Disposition: Home, Self Care
[2025-01-07 07:25] VITALS: BP 144/102; PULSE 112; RESP 18; O2SAT 98
[2025-01-07] MEDS: Ketorolac 30 MG/ML Syringe IV (07:30)
[2025-01-07 07:41] LABS: Color, Urine Amber (Yellow); Glucose, Dipstick 100 mg/dl (Normal); Hematocrit 37.4 % (40-54); Hemoglobin 11.7 g/dL (13.0-16.5); Immature Granulocytes Count 0.210 X10^3/uL (0.0-0.0); Ketone-Dipstick 15 mg/dl (Negative); Leukocyte Esterase-Dipstick 25 /ul (Negative); Mean Corp Hgb Conc 31.3 g/dL (32-36); Mean Corpuscular Volume 78.4 fL (80-94); Mean Platelet Vol. 9.4 fl (6.2-12.0); NRBC Flagged by Analyzer 0 % (0-5); Nitrite-Dipstick Positive (Negative); Occult Blood-Urine 10 /ul (Negative); Platelet Count 200 K/mm3 (150-450); Protein-Dipstick 100 mg/dl (Negative); RBC Distribution Width CV 18.2 % (11.6-14.6); RBC Distribution Width SD 50.5 fl (35.1-43.9); Red Blood Count 4.77 M/mm3 (4.6-6.2); Specific Gravity, Urine 1.025 (1.002-1.030); White Blood Count 11.0 K/mm3 (4.4-11.0)
--- OUTSIDE RECORDS SUMMARY | 2025-01-07 07:42 | XMS RPT_ITS | CCD ---
Author Organization [facility] Care Team Providers Care Blankbook Stitching Machine Operator Name Role Phone DANIEL, MK Unavailable Unavailable DANIEL, MK Unavailable Unavailable Kumar DO Edwin L Primary Care Provider Kumar DO Edwin L Primary Care Provider Kumar DO Edwin L Primary Care Provider Kumar DO Edwin L Primary Care Provider Kumar DO Edwin L Primary Care Provider Gonzalez SAFETY ENGINEER PRESSURE VESSELS.DOORS PREFITTER, Cari Hayes Unavailable Deandre SAFETY ENGINEER PRESSURE VESSELS.DOORS PREFITTER, Deneen Unavailable Nnamdi SAFETY ENGINEER PRESSURE VESSELS.DOORS PREFITTER, Lizzeth Marte Unavailable KUMAR, EDWIN L Primary Care Unavailable ABEREGG, KRISLYN P Referring Unavailable KUMAR, EDWIN L Primary Care Unavailable SJ GONZALEZ Attending Unavailable ABEREGG, KRISLYN P Referring Unavailable KUMAR, EDWIN L Primary Care Unavailable DANIEL, MK Referring Unavailable KUMAR, EDWIN L Primary Care Unavailable HAAGEN, FARIDA Referring Unavailable KUMAR, EDWIN L Primary Care Unavailable KATIEAGENISABELLEY Attending Unavailable KUMAR, EDWIN L Primary Care Unavailable DANIEL, MK Referring Unavailable KUMAR, EDWIN L Primary Care Unavailable DANIEL, MK Referring Unavailable KUMAR, EDWIN L Primary Care Unavailable DANIEL, MK Referring Unavailable KUMAR, EDWIN L Primary Care Unavailable HAAGEN, FARIDA Attending Unavailable KUMAR, EDWIN L Primary Care Unavailable MARYKA, ROXANNE Attending Unavailable KUMAR, EDWIN L Primary Care Unavailable KALKA, ROXANNE Referring Unavailable KUMAR, EDWIN L Primary Care Unavailable DANIEL, MK Referring Unavailable EDWIN KUMAR Primary Care Unavailable DANIEL, MK Referring Unavailable EDWIN KUMAR Primary Care Unavailable EDWIN KUMAR Primary Care Unavailable DANIEL, MK Referring Unavailable EDWIN KUMAR Primary Care Unavailable BABS ROSEN Referring Unavailable EDWIN KUMAR Primary Care Unavailable Allergies Allergy Classification Reported Allergen(s) Allergy Type Date of Onset Reaction(s) Facility Quinolones (antibiotic) (1 source) Ciprofloxacin Drug Allergy 03-02-2017 Intolerance [facility] (20 sources) ciprofloxacin; Translations: [CIPROFLOXACIN] Drug Allergy 03-02-2017 Intolerance [facility] Other [place] [facility] Medications Current Medications Medication Drug Class(es) Dates Sig (Normalized) Sig (Original) amoxicillin 875 mg / clavulanate 125 mg oral tablet (1 source) Penicillin-class Antibacterial Start: 04-05-2024 End: 04-15-2024 take 1 tablet by mouth twice daily amoxicillin-clavula duglas potassium (AUGMENTIN) 875-125 mg per tablet Indications: Sinobronchitis Take 1 tablet by mouth two times a day for 10 days. 20 tablet 04/05/2024 04/15/2024 Active Blood-Glucose Meter monitoring kit (1 source) Start: 01-20-2023 End: 01-21-2023 Blood-Glucose Meter monitoring kit Indications: Type 2 diabetes mellitus without complication, without long-term current use of insulin (HCC) Glucose Meter of Choice - Kit - Dx: Type 2 DM - Controlled E11.9 1 Each 0 01/20/2023 01/21/2023 Active Comment on above: Glucose Meter of Cho ice - Kit - Dx: Type 2 DM - Controlled E11.9 budesonide 3 mg delayed release oral capsule (20 sources) Corticosteroid Start: 12-04-2024 take 1 capsule by mouth every twenty-four hours budesonide, enteric coated (ENTOCORT EC) 3 mg 24 hr capsule Indications: Crohn's disease of both small and large intestine without complication (HCC) TAKE 3 CAPSULES BY MOUTH EVERY DAY 270 capsule 1 12/04/2024 Active Start: 06-14-2023 End: 12-04-2024 take 1 capsule by mouth every twenty-four hours budesonide, enteric coated (ENTOCORT EC) 3 mg 24 hr capsule Indications: Crohn's disease of both small and large intestine without complication (HCC) Take 3 capsules by mouth once daily. 270 capsule 1 04/04/2024 12/04/2024 Discontinued Start: 04-27-2022 End: 12-11-2022 take 1 capsule by mouth every twenty-four hours budesonide, enteric coated (ENTOCORT EC) 3 mg 24 hr capsule Indications: Crohn's disease of both small and large intestine without complication (HCC) Take 3 capsules by mouth once daily. 270 capsule 1 12/11/2022 Active Start: 11-13-2020 End: 04-23-2022 take 1 capsule by mouth every twenty-four hours budesonide, enteric coated (ENTOCORT EC) 3 mg 24 hr capsule Indications: Crohn's disease of both small and large intestine without complication (HCC) Take 3 capsules by mouth once daily. 270 capsule 1 10/23/2021 04/23/2022 Discontinued Comment on above: Take 3 capsules by m outh once daily. take 3 capsules by m outh every day carvedilol 25 mg oral tablet (20 sources) alpha-Adrenergic Marcin, beta-Adrenergic Marcin Start: 01-18-2023 End: 10-04-2024 take 1 tablet by mouth twice daily carvedilol (COREG) 25 mg tablet Indications: Hypertension, essential Take 1 tablet by mouth two times a day. 180 tablet 1 10/04/2024 Active Start: 11-04-2021 End: 10-07-2022 take 1 tablet by mouth twice daily carvedilol (COREG) 25 mg tablet Take 1 tablet by mouth twice daily. 180 tablet 0 10/07/2022 Active Start: 10-06-2021 take 1 tablet by damien th twice daily carvedilol (COREG) 25 mg tablet Indications: Hypertension, essential , Resistant hypertension Take 1 tablet by mouth twice daily. 60 tablet 1 10/06/2021 Active Start: 09-29-2021 End: 10-06-2021 take 1 tablet by mouth twice daily carvedilol (COREG) 12.5 mg tablet Take 1 tablet by mouth twice daily. 60 tablet 1 09/29/2021 10/06/2021 Discontinued (Dosage adjustment) Start: 09-22-2021 End: 09-29-2021 take 1 tablet by mouth twice daily carvedilol (COREG) 6.25 mg tablet Indications: Hypertension, essential Take 1 tablet by mouth twice daily. 60 tablet 3 09/22/2021 09/29/2021 Discontinued Comment on above: Take 1 tablet by damien twice daily. Take 1 tablet by damien th two times a day. 24 hr dilTIAZem hydrochloride 360 mg extended release oral capsule (20 sources) Calcium Channel Marcin Start: 01-18-2023 End: 10-04-2024 take 1 capsule by mouth once daily dilTIAZem CR (TIADYLT ER) 360 mg 24 hr capsule Indications: Hypertension, essential Take 1 capsule by mouth once daily. 90 capsule 1 10/04/2024 Active Start: 10-07-2022 End: 01-05-2023 take 1 capsule by mouth once daily dilTIAZem CR (TIADYLT ER) 360 mg 24 hr capsule Indications: Hypertension, essential Take 1 capsule by mouth once daily. 90 capsule 0 10/07/2022 Active Start: 04-14-2022 End: 07-13-2022 take 1 capsule by mouth once daily TIADYLT ER 360 mg 24 hr capsule Indications: Hypertension, essential TAKE 1 CAPSULE BY MOUTH ONCE DAILY 90 capsule 1 04/14/2022 Active Start: 08-18-2021 End: 01-15-2022 take 1 capsule by mouth once daily TIADYLT ER 360 mg 24 hr capsule Indications: Hypertension, essential TAKE 1 CAPSULE BY MOUTH ONCE DAILY 90 capsule 1 10/17/2021 Active Comment on above: Take 1 capsule by [facility] once daily. TAKE 1 CAPSULE BY [facility] ONCE DAILY Docusate (20 sources) docusate sodium (COLACE ORAL) Take by mouth once daily. Active docusate sodium (COLACE ORAL) Take by mouth once daily. 0 Active Comment on above: Take by mouth once d aily. enteric contrast (will be provided with radiology test) (1 source) Start: 2021 End: 2021 enteric contrast (will be provided with radiology test) Indications: Crohn's disease of small intestine without complication (HCC) For MRI ENTEROGRAPHY WO/W Administer, As Directed One Time Only, via Oral, Rectal, both Oral and Rectal, Enteric Tube, Stoma or Indwelling Catheter, Enteric Contrast as designated per enteric contrast guidelines 1 Each 0 11/21/2021 11/22/2021 Active Comment on above: For MRI ENTEROGRAPHY WO/W Administer, As Directed One Time Only, via Oral, Rectal, both Oral and Rectal, Enteric Tube, Stoma or Indwelling Catheter, Enteric Contrast as designated per enteric contrast guidelines ergocalciferol 1.25 mg oral capsule (20 sources) Provitamin D2 Compound Start: 2020 End: 2024 take 1 capsule by mouth every week ergocalciferol 50,000 unit capsule (VITAMIN D2, DRISDOL) Indications: Vitamin D deficiency Take 1 capsule by mouth one time a week. Wednesday 12 capsule 3 10/04/2024 Active Comment on above: Take 1 capsule by [facility] one time a week. Wednesday [facility]KE 1 [facility]LE [facility] A W[facility]. iv contrast (will be provided with radiology test) (1 source) Start: 2021 End: 2021 iv contrast (will be provided with radiology test) Indications: Crohn's disease of small intestine without complication (HCC) MRI Enterography Inject, intravenously, once for 1 dose. No IV access, insert saline lock prior to the beginning of sedation, infusion, injection of imaging exam. Discontinue saline lock post exam. If Pt. has a central line or IVAD, may access for administration according to line specific nursing protocol. Once exam is complete flush line and de-access according to line specific nursing protocol in the MR contrast administration guidelines link. 1 Each 0 11/21/2021 11/22/2021 Active Comment on above: MRI Enterography Inj ect, intravenously, once for 1 dose. No IV access, insert saline lock prior to the beginning of sedation, infusion, injection of imaging exam. Discontinue saline lock post exam. If Pt. has a central line or IVAD, may access for administration according to line specific nursing protocol. Once exam is complete flush line and de-access according to line specific nursing protocol in the MR contrast administration guidelines link. losartan potassium 100 mg oral tablet (20 sources) Angiotensin 2 Receptor Marcin Start: 2020 End: 2024 take 1 tablet by mouth once daily losartan (COZAAR) 100 mg tablet Indications: Hypertension, essential Take 1 tablet by mouth once daily. 90 tablet 2 10/04/2024 Active Comment on above: [facility] om[facility]razole 40 mg delayed release oral capsule (20 sources) Proton Pump Inhibitor Start: 2019 take 1 capsule by mouth once daily as needed omeprazole (PRILOSEC) 40 mg capsule Take 1 capsule by mouth once daily as needed. 01/12/2020 Active Comment on above: Take 1 capsule by [facility] once daily as needed. perflutren lipid microspheres 1.3 mL in NaCl (PF) 0.9% 10 mL injection (DEFINITY) (10 sources) Start: 2020 End: 2021 perflutren lipid microspheres 1.3 mL in NaCl (PF) 0.9% 10 mL injection (DEFINITY) semaglutide (OZEMPIC) 1 mg/dose (4 mg/3 mL) pen (20 sources) Start: 2024 inject 1 mg by subcutaneous injection every week semaglutide (OZEMPIC) 1 mg/dose (4 mg/3 mL) pen Indications: Type 2 diabetes mellitus without complication, without long-term current use of insulin (HCC) Inject 1 mg subcutaneously one time a week. 9 mL 3 10/04/2024 Active Start: 01-11-2024 End: 10-04-2024 inject 1 mg by subcutaneous injection every week semaglutide (OZEMPIC) 1 mg/dose (4 mg/3 mL) pen Inject 1 mg subcutaneously one time a week. 9 mL 3 01/11/2024 10/04/2024 Discontinued Start: 01-11-2024 inject 1 mg by subcu taneous injection every week semaglutide (OZEMPIC) 1 mg/dose (4 mg/3 mL) pen Inject 1 mg subcutaneously one time a week. 9 mL 3 01/11/2024 Active Start: 05-17-2023 End: 01-09-2024 inject 1 mg by subcutaneous injection every week semaglutide (OZEMPIC) 1 mg/dose (4 mg/3 mL) pen Inject 1 mg subcutaneously one time a week. 9 mL 3 05/17/2023 01/09/2024 Discontinued Start: 05-17-2023 inject 1 mg by subcu taneous injection every week semaglutide (OZEMPIC) 1 mg/dose (4 mg/3 mL) pen Inject 1 mg subcutaneously one time a week. 9 mL 3 05/17/2023 Active Comment on above: Inject 1 mg subcutan eously one time a week. 125 ml sodium chloride 9 mg/ml prefilled syringe (10 sources) Start: 021 End: sodium chloride 0.9 % (flush) 10 mL (BD POSIFLUSH) spironolactone 25 mg oral tablet (20 sources) Aldosterone Antagonist Start: 023 End: take 1 tablet by mouth once daily spironolactone (ALDACTONE) 25 mg tablet Indications: Hypertension, essential Take 1 tablet by mouth once daily. 90 tablet 3 10/04/2024 Active Start: 12-09-2022 End: 01-13-2023 take 1 tablet by mouth once daily spironolactone (ALDACTONE) 25 mg tablet Indications: Hypertension, essential Take 1 tablet by mouth once daily. 30 tablet 2 01/13/2023 Active Comment on above: Take 1 tablet by damien th once daily. vedolizumab 300 mg injection (20 sources) Integrin Receptor Antagonist Start: 2020 vedolizumab (ENTYVIO) 300 mg injection Indications: Crohn's disease of both small and large intestine without complication (HCC) 300mg Intravenous every 8 weeks. 1 Each 6 12/04/2020 Active Comment on above: 300mg Intravenous ev destiney 8 weeks. vitamin b12 1 mg/ml injectable solution (20 sources) Vitamin B12 Start: 2019 End: 2024 inject 1 mL by intramuscular injection every month cyanocobalamin 1,000 mcg/mL Indications: B12 deficiency INJECT 1 ML INTRAMUSCULARLY ONCE EVERY MONTH. 3 mL 09/07/2024 Active Comment on above: INJECT 1 ML INTRAMUS CULARLY ONCE EVERY MONTH. Completed/Discontinued Medications Medication Drug Class(es) Dates Sig (Normalized) Sig (Original) glucagon (rdna) 1 mg injection (12 sources) Antihypoglycemic Agent Start: 11-21-2021 inject 1 mg intravenously once glucagon (GLUCAGEN) 1 mg/mL injection Indications: Crohn's disease of small intestine without complication (HCC) Inject 1 mg intravenously one time only for 1 dose. For MRI Enterography, Inject 1 mg intravenously, as directed. Slow push at the appropriate time during MRI Scan 1 Each 0 11/21/2021 Active Comment on above: Inject 1 mg intraven ously one time only for 1 dose. For MRI Enterography, Inject 1 mg intravenously, as directed. Slow push at the appropriate time during MRI Scan 24 hr metFORMIN hydrochloride 500 mg extended release oral tablet (6 sources) Biguanide Start: 12-22-2022 End: 01-20-2023 take 1 tablet by mouth once daily at breakfast metFORMIN ER (GLUCOPHAGE XR) 500 mg 24 hr tablet Indications: Type 2 diabetes mellitus without complication, without long-term current use of insulin ([facility]) Take 1 tablet by mouth daily with breakfast. 30 tablet 3 01/20/2023 Active Comment on above: Take 1 tablet by damien th daily with breakfast. semaglutide (OZEMPIC) 0.25 mg or 0.5 mg (2 mg/3 mL) pen (15 sources) Start: 03-31-2023 inject 0.5 mg by subcutaneous injection every week semaglutide (OZEMPIC) 0.25 mg or 0.5 mg (2 mg/3 mL) pen Inject 0.5 mg subcutaneously one time a week. 9 mL 1 03/31/2023 Active Start: 01-20-2023 End: 03-31-2023 semaglutide (OZEMPIC) 0.25 m g or 0.5 mg (2 mg/3 mL) pen Indications: Type 2 diabetes mellitus without complication, without long-term current use of insulin (HCC) Inject 0.25 mg subcutaneously one time a week. 6 mL 1 01/20/2023 03/31/2023 Discontinued Start: 01-20-2023 semaglutide (O ZEMPIC) 0.25 mg or 0.5 mg (2 mg/3 mL) pen Indications: Type 2 diabetes mellitus without complication, without long-term current use of insulin (HCC) Inject 0.25 mg subcutaneously one time a week. 6 mL 1 01/20/2023 Active Start: 12-15-2022 End: 01-20-2023 semaglutide (OZEMPIC) 0.25 m g or 0.5 mg (2 mg/3 mL) pen Indications: Type 2 diabetes mellitus without complication, without long-term current use of insulin ([facility]) Inject 0.25 mg subcutaneously one time a week. 6 mL 1 12/15/2022 01/20/2023 Discontinued Start: 12-15-2022 semaglutide (O ZEMPIC) 0.25 mg or 0.5 mg (2 mg/3 mL) pen Indications: Type 2 diabetes mellitus without complication, without long-term current use of insulin (HCC) Inject 0.25 mg subcutaneously one time a week. 6 mL 1 12/15/2022 Active Comment on above: Inject 0.25 mg subcu taneously one time a week. Inject 0.5 mg subcut aneously one time a week. vedolizumab 300 mg in NaCl 0.9% 250 mL (ENTYVIO) (9 sources) Start: 12-25-2024 End: 12-25-2024 300 mg, INTRAVENOUS, Administer over 30 Minutes, ONCE, 1 dose, On Wed12/25/24 at 1430, Approx Total Volume - Expires: (10 days refrigerated) After the infusion is complete flush with 30 mL of sterile 0.9% Sodium Chloride Injection. Refrigerate. After the infusion is complete flush with 30 mL of sterile 0.9% Sodium Chloride Injection. Start: 10-31-2024 End: 10-31-2024 300 mg, INTRAVENOUS, Adminis ter over 30 Minutes, ONCE, 1 dose, On Wed10/31/24 at 1430, Approx Total Volume: 280 mL exp 0811/10/24 (refrigerated) After the infusion is complete flush with 30 mL of sterile 0.9% Sodium Chloride Injection. Refrigerate. After the infusion is complete flush with 30 mL of sterile 0.9% Sodium Chloride Injection. Start: 09-04-2024 End: 09-04-2024 300 mg, INTRAVENOUS, Adminis ter over 30 Minutes, ONCE, 1 dose, On Wed09/04/24 at 1430, Approx Total Volume: 280 mL After the infusion is complete flush with 30 mL of sterile 0.9% [place] [address]09/14/24 (refrigerated) Refrigerate. After the infusion is complete flush with 30 mL of sterile 0.9% Sodium Chloride Injection. Start: 07-10-2024 End: 07-10-2024 300 mg, INTRAVENOUS, Adminis ter over 30 Minutes, ONCE, 1 dose, On Wed07/10/24 at 1430, Approx Total Volume: 280 mL exp 1100 07/17/24 (refrigerated) After the infusion is complete flush with 30 mL of sterile 0.9% Sodium Chloride Injection. Refrigerate. After the infusion is complete flush with 30 mL of sterile 0.9% Sodium Chloride Injection. Start: 05-15-2024 End: 05-15-2024 300 mg, INTRAVENOUS, Adminis ter over 30 Minutes, ONCE, 1 dose, On 05/15/24 at 1430, Approx Total Volume: 280 mL After the infusion is complete flush with 30 mL of sterile 0.9% Sodium Chloride Injection. Refrigerate. After the infusion is complete flush with 30 mL of sterile 0.9% Sodium Chloride Injection. Start: 03-20-2024 End: 03-20-2024 300 mg, INTRAVENOUS, Adminis ter over 30 Minutes, ONCE, 1 dose, On 03/20/24 at 1430, Approx Total Volume: 280 mL After the infusion is complete flush with 30 mL of sterile 0.9% Sodium Chloride Injection. EXP 03/21/24 1400 (fridge) Refrigerate. After the infusion is complete flush with 30 mL of sterile 0.9% Sodium Chloride Injection. Start: 01-24-2024 End: 01-24-2024 300 mg, INTRAVENOUS, Adminis ter over 30 Minutes, ONCE, 1 dose, On 01/24/24 at 1430, Approx Total Volume - Expires: 02/03/24 @ (refrigerated) After the infusion is complete flush with 30 mL of sterile 0.9% Sodium Chloride Injection. Refrigerate. EXP: (24 HR) Start: 11-29-2023 End: 11-29-2023 vedolizumab 300 mg in NaCl 0 .9% 250 mL (ENTYVIO) Start: 10-04-2023 End: 10-04-2023 vedolizumab 300 mg in NaCl 0 .9% 250 mL (ENTYVIO) Problems Active Problems Problem Classification Problem Date Documented Da te Episodic/Chronic Deficiency and other anemia (20 sources) Iron deficiency anemia due to blood loss; Translations: [Iron deficiency anemia secondary to blood loss (chronic)] Onset: 10-08-2018 10-08-2018 Chronic Diabetes mellitus without complication (20 sources) Type 2 diabetes mellitus without complication; Translations: [Type 2 diabetes mellitus without complications] Onset: 12-15-2022 12-15-2022 Chronic Disorders of lipid metabolism (5 sources) Hypertriglyceridemi a; Translations: [Pure hyperglyceridemia] Onset: 09-27-2024 09-29-2023 Chronic Essential hypertension (20 sources) Essential hypertension; Translations: [Essential (primary) hypertension] Onset: 01-02-2021 01-02-2021 Chronic Genitourinary symptoms and ill-defined conditions (1 source) Abnormal quantity of physiologic substance; Translations: [Other abnormal findings in urine] 03-31-2023 Episodic Nutritional deficiencies (20 sources) Vitamin D deficiency; Translations: [Vitamin D deficiency, unspecified] Onset: 06-30-2018 Chronic Other connective tissue disease (6 sources) Pain in right foot; Translations: [Pain in right foot] 07-28-2024 Episodic Other fractures (1 source) Closed fracture of single right rib; Translations: [Fracture of one rib, right side, initial encounter for closed fracture] 07-28-2024 Episodic Other lower respiratory disease (1 source) Cough; Translations: [Acute cough] 04-30-2023 Episodic Other lower respiratory disease (4 sources) Rib pain; Translations: [Pleurodynia] 07-28-2024 Episodic Other nutritional; endocrine; and metabolic disorders (20 sources) Obese class II; Translations: [Obesity, unspecified] Onset: 06-30-2018 01-02-2021 Chronic Other upper respiratory infections (2 sources) Chronic sinusitis; Translations: [Chronic sinusitis, unspecified] Onset: 04-05-2024 04-05-2024 Chronic Regional enteritis and ulcerative colitis (20 sources) Crohn's disease of small intestine with unspecified complications; Translations: [Crohn's disease of small intestine] Onset: 03-02-2017 03-02-2017 Chronic Unclassified (1 source) Minor Injuries (Sprains, Strains, Minor Joint Pain) Onset: 07-28-2024 Past or Other Problems Problem Classification Problem Date Documented Da te Episodic/Chronic Abdominal pain (20 sources) Generalized abdominal pain; Translations: [Generalized abdominal pain] Onset: 7 Resolved: 9 06-30-2018 Episodic Calculus of urinary tract (20 sources) Kidney stone; Translations: [Calculus of kidney] Onset: 8 06-30-2018 Episodic Cardiac dysrhythmias (20 sources) Tachycardia; Translations: [Tachycardia, unspecified] Onset: 8 02-21-2018 Episodic Chronic obstructive pulmonary disease and bronchiectasis (1 source) Bronchitis, not specified as acute or chronic; Translations: [Sinobronchitis] Onset: 4 Episodic Deficiency and other anemia (20 sources) Anemia; Translations: [Anemia, unspecified] Onset: 9 01-03-2021 Episodic Deficiency and other anemia (1 source) Anemia, unspecified; Translations: [Anemia, unspecified type] Onset: 1 Episodic Fracture of lower limb (8 sources) Closed fracture of fifth metatarsal bone; Translations: [Closed fracture of fourth metatarsal bone of right foot] Onset: 5 07-28-2024 Episodic Immunizations and screening for infectious disease (5 sources) Viral screening status; Translations: [Encounter for screening for other viral diseases] Onset: 5 12-09-2022 Episodic Nutritional deficiencies (20 sources) Cobalamin deficiency; Translations: [Deficiency of other specified B group vitamins] Onset: 9 09-20-2020 Episodic Other connective tissue disease (1 source) Pain in right foot; Translations: [Foot pain, right] Onset: 5 Episodic Other gastrointestinal disorders (20 sources) Constipation; Translations: [Other constipation] Onset: 9 10-14-2018 Episodic Other liver diseases (20 sources) ALT (SGPT) level raised; Translations: [Elevated alanine aminotransferase (ALT) level] Onset: 1 11-13-2020 Episodic Other lower respiratory disease (1 source) Pleurodynia; Translations: [Rib pain on right side] Onset: 5 Episodic Other non-traumatic joint disorders (20 sources) Joint pain; Translations: [Pain in unspecified joint] Onset: 1 09-20-2020 Episodic Peritonitis and intestinal abscess (20 sources) Abdominal abscess; Translations: [Peritoneal abscess] Onset: 1 01-07-2021 Episodic Spondylosis; intervertebral disc disorders; other back problems (20 sources) Chronic low back pain; Translations: [Chronic right-sided low back pain without sciatica] Onset: 1 06-06-2020 Episodic Unclassified (2 sources) Closed fracture of fourth metatarsal bone of right foot 07-28-2024 Results Test Name Value Interpretation Reference Range Facility OVon 10-04-2024 [facility] Office Visit ([facility] ) ANNABELLA CHAPA ([id number]) 1980 M Date Time Provider Department 10/04/24 1:00 PM [facility] During your visit today, we recorded the following information about you: Pulse Blood pressure Weight Height 88/minute 112/62 102.5 kg 1.727 m Farida Sloan APRN.DOORS PREFITTER 10/04/2024 5:00 PM Signed This is a 43 year old male who presents today with: Patient presents with: 6 Month Exam HISTORY OF PRESENT ILLNESS: Annabella Chapa is a 43 year old male. Patient presents with: 6 Month Exam DM: Reports overall feeling well. Medication side effects: No. Home sugar checks: no Hypoglycemic spells: No. Watching diet: watches sodium and low bulk. Unexpected weight loss: No. Polyuria, polydipsia: No. Vision Changes: No. Has an appt next month. Foot lesions or numbness or pain: No. HTN: Patient is compliant with meds Yes Monitors bp at home: Yes. Denies side effects: No. Chest pain: No. Dyspnea: No. Edema: a little more swelling in the ankles. Palpitations: No. Syncope: No. Headache: No. Dizziness: No. Crohn's Has been controlled. PAST MEDICAL HISTORY: PAST MEDICAL HISTORY Diagnosis Date Anemia B12 deficiency 06/30/2018 Calculus of kidney 11/23/2017 left ureterolithiasis Crohn's disease of small intestine with complication (HCC) 03/02/2017 DDD (degenerative disc disease), cervical 02/04/2018 on MRI DDD (degenerative disc disease), lumbar 02/04/2018 on MRI H/O right hemicolectomy 07/2000 Hemorrhoids HTN (hypertension) Iron deficiency anemia due to chronic blood loss 10/08/2018 Obesity, Class II, BMI 35-39.9 06/30/2018 Proximal limb muscle weakness 02/04/2018 neg. myositis, vasculitis, Lyme, WNV, GBS work up. Tachycardia 02/21/2018 Type 2 diabetes mellitus without complication, without long-term current use of insulin (HCC) 12/15/2022 Vitamin D deficiency 06/30/2018 PAST SURGICAL HISTORY Procedure Laterality Date COLECTOMY PARTIAL W ANASTOM Right 07/2000 Right hemicolectomy [facility] COLONOSCOPY 05/11/2016 Grade 1 internal hemorrhoids, severe inflammation at surgical site COLONOSCOPY 06/23/2005 Crohn's activity at ileocolonic anastamosis COLONOSCOPY 09/17/2006 Persistent surgical anastomotic stricture.Significant inflammation and ulceration on ileal side of anastomosis COLONOSCOPY 05/25/2018 Stenosis of ileocolonic anastomosis, Crohn's disease, hemorrhoids, markedly ulcerated colonic mucosa COLONOSCOPY 02/03/2019 chronic active colitis COLONOSCOPY SCREENING 07/19/2023 Non-bleeding internal hemorrhoids, tubular adenoma EGD 02/03/2019 cervical inlet patch, minimal active inflammation EYE SURGERY HX PAST SURGICAL HISTORY OF 1998 left ankle broken, screws REMV CATARACT EXTRACAP,INSERT LENS Bilateral 04/2023 ALLERGIES Ciprofloxacin MEDICATIONS Current Outpatient Medications Medication Sig cyanocobalamin 1,000 mcg/mL INJECT 1 ML INTRAMUSCULARLY ONCE EVERY MONTH. losartan (COZAAR) 100 mg tablet Take 1 tablet by mouth once daily. budesonide, enteric coated (ENTOCORT EC) 3 mg 24 hr capsule Take 3 capsules by mouth once daily. carvedilol (COREG) 25 mg tablet Take 1 tablet by mouth two times a day. dilTIAZem CR (TIADYLT ER) 360 mg 24 hr capsule Take 1 capsule by mouth once daily. semaglutide (OZEMPIC) 1 mg/dose (4 mg/3 mL) pen Inject 1 mg subcutaneously one time a week. spironolactone (ALDACTONE) 25 mg tablet Take 1 tablet by mouth once daily. blood sugar diagnostic (BLOOD GLUCOSE TEST) test strip Test blood sugar(s) 1 times daily. Dx: Type 2 DM - Controlled E11.9 Insulin: No Lancets lancets Test blood sugar(s) 1 times daily. Dx: Type 2 DM - Controlled E11.9 Insulin: No ergocalciferol 50,000 unit capsule (VITAMIN D2, DRISDOL) Take 1 capsule by mouth one time a week. Wednesday vedolizumab (ENTYVIO) 300 mg injection 300mg Intravenous every 8 weeks. omeprazole (PRILOSEC) 40 mg capsule Take 1 capsule by mouth once daily as needed. docusate sodium (COLACE ORAL) Take by mouth once daily. No current facility-administered medications for this visit. FAMILY HISTORY Problem Relation Age of Onset Colon Cancer Paternal Uncle 55 Breast Cancer Maternal Aunt Cancer Maternal Grandfather renal cancer No Known Problems Mother Coronary Artery Disease Father 72 CABG Hypertension Father No Known Problems Brother No Known Problems Maternal Grandmother No Known Problems Paternal Grandmother Alzheimer's Disease Paternal Grandfather Social History Tobacco Use Smoking status: Former Types: Cigarettes Smokeless tobacco: Never Tobacco comments: Temporary smoker during college Vaping Use Vaping status: Never Used Substance Use Topics Alcohol use: Yes Comment: occasional Drug use: Never EXAM: BP 112/62 Pulse 88 Ht 172.7 cm (5' 8) Wt 102.5 kg (226 lb) SpO2 97% BMI 34.36 kg/m? PHYSICA (more content not included)... Normal [facility] 25(OH[facility]3 [facility] 25-hydroxyvitamin D3 [Mass/Vol] 20.5 ng/mL Low 31.0-80.0 [facility] Comment on above: Order Comment: Speci men Type: BLOOD SPECIMENOrdering Facility: [facility] Address: [address] [place] [address] Result Comment: Clas sification of 25 [place] Vitamin D status: Deficiency/Insufficiency: < or = 30 ng/ml. Sufficiency/Optimal Levels: 31-80 ng/mL Toxicity: > 100 ng/mL. Test performed by chemiluminescent immunoassay. Performed By: #### 1 989-3 ####[facility] LABCLIA [id number] [place] [address] [place] CBC W Auto Differential pane l (Bld)on 09-27-2024 Basophils (Bld) [#/Vol] 10*3/uL Normal <0.11 [facility] Comment on above: Order Comment: Speci men Type: BLOOD SPECIMENOrdering Facility: [facility] Address: [address] [place] [address] Performed By: #### 5 7021-8 ####[facility] LABCLIA [id number] [facility] [address], [facility] [place] [place] Basophils/100 WBC (Bld) 0.1 % Normal [facility] Comment on above: Order Comment: Speci men Type: BLOOD SPECIMENOrdering Facility: [facility] Address: [address] [place] [address] Performed By: #### 5 7021-8 ####[facility]CLIA [id number] [facility] [address], [place] [address] [place] Differential cell count method Nom (Bld) Auto Normal [facility] Comment on above: Order Comment: Speci men Type: BLOOD SPECIMENOrdering Facility: [facility] Address: [address] [place] [address] Performed By: #### 5 7021-8 ####[facility]CL[facility] [id number] [facility] [address], [place] [address] [place] Eosinophils (Bld) [#/Vol] 0.06 10*3/uL Normal <0.46 [facility] Comment on above: Order Comment: Speci men Type: BLOOD SPECIMENOrdering Facility: [facility] Address: [address] [place] [address] Performed By: #### 5 7021-8 ####[facility] LABCLIA [id number] [facility] [address] [place] Eosinophils/100 WBC (Bld) 0.4 % Normal [facility] Comment on above: Order Comment: Speci men Type: BLOOD SPECIMENOrdering Facility: [facility] Address: [address] [place] [address] Performed By: #### 5 7021-8 ####[facility] LABCLIA [id number] [address], [place] [address] [place] Erythrocyte distribution width (RBC) [Ratio] 17.2 % High 11.5-15.0 [facility] Comment on above: Order Comment: Speci men Type: BLOOD SPECIMENOrdering Facility: [facility] Address: [address] [place] [address] Performed By: #### 5 7021-8 ####[facility] LABCLIA [id number] [address], [place] [address] [place] Hematocrit (Bld) [Volume fraction] 36.0 % Low 39.0-51.0 [facility] Comment on above: Order Comment: Speci men Type: BLOOD SPECIMENOrdering Facility: [facility] Address: [address] [place] [address] Performed By: #### 5 7021-8 ####[facility] LABIA [id number] [address], [place] [address] [place] Hemoglobin (Bld) [Mass/Vol] 10.9 g/dL Low 13.0-17.0 [facility] Comment on above: Order Comment: Speci men Type: BLOOD SPECIMENOrdering Facility: [facility] Address: [address] [place] [address] Performed By: #### 5 7021-8 ####[facility] LABIA [id number] [place] [address] [place] Immature granulocytes (Bld) [#/Vol] 0.16 10*3/uL High <0.10 [facility] Comment on above: Order Comment: Speci men Type: BLOOD SPECIMENOrdering Facility: [facility] Address: [address] [place] [address] Performed By: #### 5 7021-8 ####[facility] LABIA [id number] [id number] [address] [place] Immature granulocytes/100 WBC (Bld) 1.1 % Normal [facility] Comment on above: Order Comment: Speci men Type: BLOOD SPECIMENOrdering Facility: [facility] Address: [address] [place] [address] Performed By: #### 5 7021-8 ####[facility] LABCLIA [id number] [place] [address] [place] Lymphocytes (Bld) [#/Vol] 1.22 10*3/uL Normal 1.00-4.00 [facility] Comment on above: Order Comment: Speci men Type: BLOOD SPECIMENOrdering Facility: [facility] Address: [address] [place] [address] Performed By: #### 5 7021-8 ####[facility] LABCLIA [id number] [place] [address] [place] Lymphocytes/100 WBC (Bld) 8.6 % Normal [facility] Comment on above: Order Comment: Speci men Type: BLOOD SPECIMENOrdering Facility: [facility] Address: [address] [place] [address] Performed By: #### 5 7021-8 ####[facility] LABCLIA [id number] [place] [address] [place] MCH (RBC) [Entitic mass] 23.7 pg Low 26.0-34.0 [facility] Comment on above: Order Comment: Speci men Type: BLOOD SPECIMENOrdering Facility: [facility] Address: [address] [place] [address] Performed By: #### 5 7021-8 ####[facility] LABCLIA [id number] [place] [address] [place] MCHC (RBC) [Mass/Vol] 30.3 g/dL Low 30.5-36.0 [facility] Comment on above: Order Comment: Speci men Type: BLOOD SPECIMENOrdering Facility: [facility] Address: [address] [place] [address] Performed By: #### 5 7021-8 ####[facility] LABCLIA [id number] [place] [address] [place] MCV (RBC) [Entitic vol] 78.3 fL Low 80.0-100.0 [facility] Comment on above: Order Comment: Speci men Type: BLOOD SPECIMENOrdering Facility: [facility] Address: [address] [place] [address] Performed By: #### 5 7021-8 ####[facility] LABCLIA [id number] [place] [address] [place] Monocytes (Bld) [#/Vol] 0.85 10*3/uL Normal <0.87 [facility] Comment on above: Order Comment: Speci men Type: BLOOD SPECIMENOrdering Facility: [facility] Address: [address] [place] [address] Performed By: #### 5 7021-8 ####[facility] LABIA [id number] [place] [address] [place] Monocytes/100 WBC (Bld) 6.0 % Normal [facility] Comment on above: Order Comment: Speci men Type: BLOOD SPECIMENOrdering Facility: [facility] Address: [address] [place] [address] Performed By: #### 5 7021-8 ####[facility] LABCLIA [id number] [place] [address] [place] Neutrophils (Bld) [#/Vol] 11.86 10*3/uL High 1.45-7.50 [facility] Comment on above: Order Comment: Speci men Type: BLOOD SPECIMENOrdering Facility: [facility] Address: [address] [place] [address] Performed By: #### 5 7021-8 ####[facility] LABCLIA [id number] [address] [address] [place] Neutrophils/100 WBC (Bld) 83.8 % Normal [facility] Comment on above: Order Comment: Speci men Type: BLOOD SPECIMENOrdering Facility: [facility] Address: [address] [place] [address] Performed By: #### 5 7021-8 ####[facility] LABCLIA [id number] [address], [place] [address] [place] Nucleated RBC (Bld) [#/Vol] 10*3/uL Normal <0.01 [facility] Comment on above: Order Comment: Speci men Type: BLOOD SPECIMENOrdering Facility: [facility] Address: [address] [place] [address] Performed By: #### 5 7021-8 ####[facility] LABCLIA [id number] [address], [place] [address] [place] Nucleated RBC/100 WBC (Bld) [Ratio] 0.0 /100 WBC Normal [facility] Comment on above: Order Comment: Speci men Type: BLOOD SPECIMENOrdering Facility: [facility] Address: [address] [place] [address] Performed By: #### 5 7021-8 ####[facility] LABCLIA [id number] [address], [facility] [place] Platelet mean volume (Bld) [Entitic vol] 10.7 fL Normal 9.0-12.7 [facility] Comment on above: Order Comment: Speci men Type: BLOOD SPECIMENOrdering Facility: [facility] Address: [address] [place] [address] Performed By: #### 5 7021-8 ####[facility] LABCLIA [id number] [address], [facility] [place] [place] Platelets (Bld) [#/Vol] 225 10*3/uL Normal 150-400 [facility] Comment on above: Order Comment: Speci men Type: BLOOD SPECIMENOrdering Facility: [facility] Address: [address] [place] [address] Performed By: #### 5 7021-8 ####[facility] LABIA [id number] [address] [address] [place] RBC (Bld) [#/Vol] 4.60 10*6/uL Normal 4.20-6.00 [facility] Comment on above: Order Comment: Speci men Type: BLOOD SPECIMENOrdering Facility: [facility] Address: [address] [place] [address] Performed By: #### 5 7021-8 ####[facility] LABIA [id number] [place] [address] [place] WBC (Bld) [#/Vol] 14.17 10*3/uL High 3.70-11.00 [facility] Comment on above: Order Comment: Speci men Type: BLOOD SPECIMENOrdering Facility: [facility] Address: [address] [place] [address] Performed By: #### 5 7021-8 ####[facility] LABIA [id number] [place] [address] [place] Comprehensive metabolic 2000 panelon 09-27-2024 Albumin [Mass/Vol] 3.8 g/dL Low 3.9-4.9 [facility] Comment on above: Order Comment: Speci men Type: BLOOD SPECIMENOrdering Facility: [facility] Address: [address] [place] [address] Performed By: #### 2 4323-8, 2132-9, 15242-2 ####[facility] [id number] [place] [address] [place] ALP [Catalytic activity/Vol] 76 U/L Normal 38-113 [facility] Comment on above: Order Comment: Speci men Type: BLOOD SPECIMENOrdering Facility: [facility] Address: [address] [place], [place] [address] Performed By: #### 2 4323-8, 2132-01, ####[facility] LABCLIA [id number] [address] [address] [place] ALT [Catalytic activity/Vol] 48 U/L Normal 10-54 [facility] Comment on above: Order Comment: Speci men Type: BLOOD SPECIMENOrdering Facility: [facility] Address: [address] [place], [place] [address] Performed By: #### 2 4323-8, 2132-01, ####[facility] LABCLIA [id number] [place] [id number] [place] Anion gap [Moles/Vol] 12 mmol/L Normal 8-15 [facility] Comment on above: Order Comment: Speci men Type: BLOOD SPECIMENOrdering Facility: [facility] Address: [address] [place], [place] [address] Performed By: #### 2 432-8, 2132-01, ####[facility] LABIA [id number] [place] [address] [place] AST [Catalytic activity/Vol] 30 U/L Normal 14-40 [facility] Comment on above: Order Comment: Speci men Type: BLOOD SPECIMENOrdering Facility: [facility] Address: [address] [place] [address] Performed By: #### 2 4323-8, 2132-01, ####[facility] LABIA [id number] [address] [address] [place] Bilirubin [Mass/Vol] 0.7 mg/dL Normal 0.2-1.3 [facility] Comment on above: Order Comment: Speci men Type: BLOOD SPECIMENOrdering Facility: [facility] Address: [address] [place] [address] Performed By: #### 2 4323-8, 2132-01, ####[facility] LABCLIA [id number] [address] [address] [place] Calcium [Mass/Vol] 8.8 mg/dL Normal 8.5-10.2 [facility] Comment on above: Order Comment: Speci men Type: BLOOD SPECIMENOrdering Facility: [facility] Address: [address] [place] [address] Performed By: #### 2 4323-8, 2132-01, ####[facility] LABCLIA [id number] [address] [address] [place] Chloride [Moles/Vol] 105 mmol/L Normal 98-107 [facility] Comment on above: Order Comment: Speci men Type: BLOOD SPECIMENOrdering Facility: [facility] Address: [address] [place] [address] Performed By: #### 2 432-8, 2132-01, ####[facility] LABCLIA [id number] [address] [address] [place] CO2 [Moles/Vol] 23 mmol/L Normal 22-30 [facility] Comment on above: Order Comment: Speci men Type: BLOOD SPECIMENOrdering Facility: [facility] Address: [address] [place], [place] [address] Performed By: #### 2 4323-8, 2132-01, ####[facility] LABCLIA [id number] [address] [address] [place] Creatinine [Mass/Vol] 0.97 mg/dL Normal 0.73-1.22 [facility] Comment on above: Order Comment: Speci men Type: BLOOD SPECIMENOrdering Facility: [facility] Address: [address] [place], [place] [address] Performed By: #### 2 4323-8, 2132-01, ####[facility] LABCLIA [id number] [address] [place] Creatinine and Glomerular filtration rate.predicted panel (S/P/Bld) 99 mL/min/1.73m??? Normal >=60 [facility] Comment on above: Order Comment: Lucita rothman Type: BLOOD SPECIMENOrdering Facility: [facility] Address: [address] [place] [address] Result Comment: Macarena mated Glomerular Filtration Rate (eGFR) is calculated using the 2020 CKD-EPI creatinine equation. This equation utilizes serum creatinine, sex, and age as parameters. The creatinine assay has traceable calibration to isotope dilution-mass spectrometry. Refer to KDIGO guidelines for clinical interpretation. In patients with unstable renal function, e.g. those with acute kidney injury, the eGFR may not accurately reflect actual GFR. Performed By: #### 2 4323-8, 2139, 34793-8 ####[facility] [id number] [place] [address] [place] Glucose [Mass/Vol] 129 mg/dL High 74-99 [facility] Comment on above: Order Comment: Lucita rothman Type: BLOOD SPECIMENOrdering Facility: [facility] Address: [address] [place] [address] Result Comment: The [place] Diabetes Association (ADA) provides guidance for cutoff values for fasting glucose and random glucose. The ADA defines fasting as no caloric intake for at least 8 hours. Fasting plasma glucose results between 100 to 125 [...] Standards of Medical Care in Diabetes 2016, [place] [employer] Association. Diabetes Care. 2016.39(Suppl 1). Performed By: #### 2 4323-8, 213-9, 79567-8 ####[facility] [id number] [address] [address] [place] Potassium [Moles/Vol] 4.0 mmol/L Normal 3.7-5.1 [facility] Comment on above: Order Comment: Speci men Type: BLOOD SPECIMENOrdering Facility: [facility] Address: [address] [place], [place] [address] Performed By: #### 2 4323-8, 2132-01, 16755-6 ####[facility] LABCLIA [id number] [address] [address] [place] Protein [Mass/Vol] 6.0 g/dL Low 6.3-8.0 [facility] Comment on above: Order Comment: Speci men Type: BLOOD SPECIMENOrdering Facility: [facility] Address: [address] [place], [place] [address] Performed By: #### 2 432-8, 2132-01, 31601-1 ####[facility] LABCLIA [id number] [place] [id number] [place] Sodium [Moles/Vol] 140 mmol/L Normal 136-144 [facility] Comment on above: Order Comment: Speci men Type: BLOOD SPECIMENOrdering Facility: [facility] Address: [address] [place], [place] [address] Performed By: #### 2 432-8, 2132-01, ####[facility] LABCLIA [id number] [address] [address] [place] Urea nitrogen [Mass/Vol] 17 mg/dL Normal 9-24 [facility] Comment on above: Order Comment: Speci men Type: BLOOD SPECIMENOrdering Facility: [facility] Address: [address] [place], [place] [address] Performed By: #### 2 4323-8, 2132-01, 41519-8 ####[facility] LABCLIA [id number] [address] [address] [place] HbA1c (Bld)on 09-27-2024 Average glucose Estimated from glycated hemoglobin (Bld) [Mass/Vol] 108 mg/dL Normal [facility] Comment on above: Order Comment: Lucita rothman Type: BLOOD SPECIMENOrdering Facility: [facility] Address: [address] [place] [address] Result Comment: eAG: (Estimated average glucose) is a calculated value from HgbA1c and is sales representative cash registers of the average blood glucose level in the last 2-3 month period. Performed By: #### 5 5454-3 ####[facility] LABCLIA [id number] [place] [address] [place] HbA1c (Bld) [Mass fraction] 5.4 % Normal 4.3-5.6 [facility] Comment on above: Order Comment: Lucita rothman Type: BLOOD SPECIMENOrdering Facility: [facility] Address: [address] [place] [address] Result Comment: [place] Diabetes Association guidelines indicate that patients with HgbA1c in the range 5.7-6.4% are at increased risk for development of diabetes, and intervention by lifestyle modification may be beneficial. HgbA1c greater or equal to 6.5% is considered diagnostic of diabetes. Performed By: #### 5 5454-3 ####[facility] LABCLIA [id number] [address] [address] [place] Lipid 1996 panelon Cholesterol [Mass/Vol] 140 mg/dL Normal <200 [facility] Comment on above: Order Comment: Lucita rothman Type: BLOOD SPECIMENOrdering Facility: [facility] Address: [address] [place] [address] Result Comment: <200 mg/dL, Desirable 200-239 mg/dL, Borderline high >239 mg/dL, High Performed By: #### 2 4323-8, 2132-9, 31269-3 ####[facility] LABCLIA [id number] [place] [id number] [place] Cholesterol in HDL [Mass/Vol] 43 mg/dL Normal >39 [facility] Comment on above: Order Comment: Lucita rothman Type: BLOOD SPECIMENOrdering Facility: [facility] Address: [address] [place] [address] Result Comment: 40-5 9 mg/dL, Acceptable >59 mg/dL, High: Negative risk factor for coronary heart disease <40 mg/dL, Low: Positive risk factor for coronary heart disease Performed By: #### 2 4323-8, 2132-01, ####[facility] LABCLIA [id number] [address] [facility] Cholesterol in LDL [Mass/Vol] 72 mg/dL Normal <100 [facility] Comment on above: Order Comment: Elisavanda rothman Type: BLOOD SPECIMENOrdering Facility: [facility] Address: [address] [place] [address] Result Comment: <100 mg/dL, Optimal 100-129 mg/dL, Near optimal/above optimal 130-159 mg/dL, Borderline high 160-189 mg/dL, High >189 mg/dL, Very high Secondary prevention optimal LDL Cholesterol levels are recommended to be <70 mg/dL LDL cholesterol is calculated using the Dejesus-NIH equation. Performed By: #### 2 432-8, 2132-01, ####[facility] LABIA [id number] [address] [place] Cholesterol in LDL/Cholesterol in HDL [Mass ratio] 1.67 {ratio} Normal <2.54 [facility] Comment on above: Order Comment: Lucita rothman Type: BLOOD SPECIMENOrdering Facility: [facility] Address: [address] [place] [address] Result Comment: Refe rence: 1. National Cholesterol Education Program ATP III Guideline At-A-Glance Quick Desk Reference: National Heart, Lung, and Blood [place]. National Institutes of Health. 2001: NIH Publication No. 01-3305. 2. An International Atherosclerosis Society position paper: global recommendations for the management of dyslipidemia: executive summary, Atherosclerosis. 2014: 232(2):410-413. Performed By: #### 2 4323-, 2132-01, ####[facility] LABCLIA [id number] [address] [place] [address] [place] Cholesterol in VLDL [Mass/Vol] 21 mg/dL Normal <30 [facility] Comment on above: Order Comment: Speci men Type: BLOOD SPECIMENOrdering Facility: [facility] Address: [address] [place], [place] [id number] Performed By: #### 2 4322-8, 2132-01, ####[facility] LABCLIA [id number] [address] [place] [address] [place] Cholesterol non HDL [Mass/Vol] 97 mg/dL Normal <130 [facility] Comment on above: Order Comment: Speci men Type: BLOOD SPECIMENOrdering Facility: [facility] Address: [address] [place] [address] Result Comment: <130 mg/dL, Optimal 130-159 mg/dL, Near optimal/above optimal 160-189 mg/dL, Borderline high 190-219 mg/dL, High >219 mg/dL, Very high Secondary prevention optimal non HDL Cholesterol levels are recommended to be <100 mg/dL Performed By: #### 2 8, 2132-01, ####[facility] LABCLIA [id number] [address] [place] [address] [place] Cholesterol.total/Chol esterol in HDL [Mass ratio] 3.26 {ratio} Normal <5.10 [facility] Comment on above: Order Comment: Speci men Type: BLOOD SPECIMENOrdering Facility: [facility] Address: [address] [place] [address] Performed By: #### 2 4323-8, 2132-01, ####[facility] LABCLIA [id number] [address] [place] [address] [place] FASTING TIME 12 hrs Normal [facility] Comment on above: Order Comment: Speci men Type: BLOOD SPECIMENOrdering Facility: [facility] Address: [address] [id number] Performed By: #### 2 4323-8, 2132-01, ####[facility] LABCLIA [id number] [place] [address] [place] Triglyceride [Mass/Vol] 141 mg/dL Normal <150 [facility] Comment on above: Order Comment: Speci men Type: BLOOD SPECIMENOrdering Facility: [facility] Address: [address] [place] [address] Result Comment: <150 mg/dL, Normal 150-199 mg/dL, Borderline high 200-499 mg/dL, High >499 mg/dL, Very high Performed By: #### 2 4323-8, 2132-01, ####[facility] LABCLIA [id number] [place] [id number] [place] Vit B12 [facility] 025 Cobalamin (Vitamin B12) [Mass/Vol] 276 pg/mL Normal 232-1245 [facility] Comment on above: Order Comment: Speci men Type: BLOOD SPECIMENOrdering Facility: [facility] Address: [address] [place] [address] Performed By: #### 2 4323-8, 2132-01, ####[facility] LABCLIA [id number] [address] [place] CNOVon 07-31-2024 CNOV Office Visit (OTMBHT ) ANNABELLA CHAPA ([id number]) 1980 Pam[place] Date Time Provider Department 07/31/24 9:00 AM SJ GONZALEZ OTMBHT During your visit today, we recorded the following information about you: Sj Gonzalez, BHARATHI.DOORS PREFITTER 07/31/2024 10:43 AM Signed [facility] Patient Visit Consultation requested by Lucho Castillo [address] [facility] [address] for an opinion regarding Mr. Annabella Chapa, and my final recommendations will be communicated back to the requesting physician by way of shared medical record or letter via [place] mail. CHIEF COMPLAINT: RT foot pain HISTORY OF PRESENT ILLNESS: Annabella Chapa is a 43 year old male who presents today RT foot pain x 4 days, patient fell down stairs on 07/28/2024. Patient states his pain level is a 5 today with constant aching with movement and pressure. He was seen at Urgent care on 07/28/2024, he was given a walking boot and referred to Orthopedics. For discomfort he uses ice, Advil/tylenol, relaxation, reposition, and walking boot. DOI:07/02/2024 Mechanism:walking boot Location of Pain: RT foot The pain is present yes The pain is a 2/10 at its best, and 7/10 at its worst. They reports nocturnal pain. The pain is exacerbated by walking, managing stairs, prolonged standing, ADLs, and works. The pain is improved with rest, activity modification, ice, and Advil/tylenol. They report aching. They are able to walk 20 minutes before having to stop secondary to pain. 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 Eyes: extraocular movements intact, pupils are equal, round, and reactive to light. Cardiovascular: normal pulses Pulmonary: normal work of breathing on room air Skin: capillary refill takes less than 2 seconds Neurological: AOx4, follows commands Musculoskeletal: right lower extremity Inspection: No obvious deformity noted Palpation: Pain with palpation throughout the forefoot ROM: Within normal limits Neuro: sensation intact in the superficial peroneal, deep peroneal, tibial, sural, and saphenous nerve distributions Vascular: DP pulse present, 2+ Compartments: compartments of leg are soft and compressible IMAGIN. Nondisplaced fractures of the right fourth and fifth metatarsals 2 probable acute fracture of the right seventh anterior rib. Old rib fractures also identified. ASSESSMENT I reviewed the imaging studies, physical exam findings, and clinical course with the patient today. Annabella Chapa is a 43 year old male who presents today right fourth and fifth metatarsal fracture, with forefoot ecchymosis and swelling, sensation intact, denies any numbness or tingling or radiating pain, he is weightbearing in a short leg boot and able to tolerate it well Bilateral dorsalis pedis pulses are equal and palpable. Sensory exam is within normal limits in all dermatomal distributions. Strength is equal 5 out of 5 at the ankle. Review of systems negative for fever, weight loss, malaise, fatigue, significant headache, vision changes, hearing loss, neck swelling, cough, chest pain, shortness of breath, dyspnea on exertion, abdominal pain, nausea, vomiting, diarrhea, urinary dysfunction PLAN: Today I had a long discussion with and Mrs. Chapa regarding Mr. Chapa injury, I have recommended conservative treatment includin-continue weightbearing as tolerated in the short leg boot 2-Tylenol for pain not to exceed 3800 mg in 24 hours 3-Vitamin D3: 5,000IU, take 1 tablet daily. This is an over the counter dose and you can purchase it at any pharmacy. You should take this along with Calcium and multivitamin and should continue this for a total of 3 months at a minimum 4-Ice and elevate your foot daily/as needed. Do not apply the ice directly to the skin, and do not leave the ice on your foot for longer than 20 minutes. You can repeat this process once every 1-2 hours as needed. There is important to remember not to put the ice directly on the skin because it could cause skin burn/frostbite -Go directly to the ER for any severe pain in the calf muscle, fever over 100.5F, red streaks running up your leg, chest pain or shortness of breath. Surgical plan: No WB: As tolerated Brace/DME: Short leg boot PT: No DVT PPX: Patient is weightbearing Progression: Ongoing Follow up: 4 weeks Will continue to monitor patient for Closed nondisplaced fracture of fourth metatarsal bone of right foot, (more content not included)... Normal [facility] CNOVon 07-28-2024 CNOV Office Visit (UCWSTR ) ANNABELLA CHAPA ([id number]) 1980 M Date Time Provider Department 07/28/24 11:15 AM LUCHO CASTILLO [facility] During your visit today, we recorded the following information about you: Temperature Pulse Respiration Blood pressure 97.2 degrees 103/minute 16/minute 116/78 Weight 106 kg Lucho Castillo PA 07/28/2024 12:21 PM Signed This note was created using Garlik. Subjective Annabella Chapa is a 43 year old male. HPI 43-year-old male presents for fall. Patient states yesterday evening he was carrying his son down the stairs when he fell and fell onto his right side. He is having right sided rib pain and right foot pain. He denies hitting his head or losing consciousness. No neck pain. He is not on any blood thinners. He has no difficulty breathing or chest pain, just reports rib pain on right side. He states he has right foot pain. No ankle or knee pain. He is still able to ambulate. Has not taken anything for symptoms. No other complaint. PAST MEDICAL HISTORY Diagnosis Date Anemia B12 deficiency 06/30/2018 Calculus of kidney 11/23/2017 left ureterolithiasis Crohn's disease of small intestine with complication (HCC) 03/02/2017 DDD (degenerative disc disease), cervical 02/04/2018 on MRI DDD (degenerative disc disease), lumbar 02/04/2018 on MRI H/O right hemicolectomy 07/2000 Hemorrhoids HTN (hypertension) Iron deficiency anemia due to chronic blood loss 10/08/2018 Obesity, Class II, BMI 35-39.9 06/30/2018 Proximal limb muscle weakness 02/04/2018 neg. myositis, vasculitis, Lyme, WNV, GBS work up. Tachycardia 02/21/2018 Type 2 diabetes mellitus without complication, without long-term current use of insulin (HCC) 12/15/2022 Vitamin D deficiency 06/30/2018 PAST SURGICAL HISTORY Procedure Laterality Date COLECTOMY PARTIAL W ANASTOM Right 07/2000 Right hemicolectomy [facility] COLONOSCOPY 05/11/2016 Grade 1 internal hemorrhoids, severe inflammation at surgical site COLONOSCOPY 06/23/2005 Crohn's activity at ileocolonic anastamosis COLONOSCOPY 09/17/2006 Persistent surgical anastomotic stricture.Significant inflammation and ulceration on ileal side of anastomosis COLONOSCOPY 05/25/2018 Stenosis of ileocolonic anastomosis, Crohn's disease, hemorrhoids, markedly ulcerated colonic mucosa COLONOSCOPY 02/03/2019 chronic active colitis COLONOSCOPY SCREENING 07/19/2023 Non-bleeding internal hemorrhoids, tubular adenoma EGD 02/03/2019 cervical inlet patch, minimal active inflammation EYE SURGERY HX PAST SURGICAL HISTORY OF 1998 left ankle broken, screws REMV CATARACT EXTRACAP,INSERT LENS Bilateral 04/2023 ALLERGIES Ciprofloxacin MEDICATIONS cyanocobalamin 1,000 mcg/mL INJECT 1 ML INTRAMUSCULARLY ONCE EVERY MONTH. budesonide, enteric coated (ENTOCORT EC) 3 mg 24 hr capsule Take 3 capsules by mouth once daily. carvedilol (COREG) 25 mg tablet Take 1 tablet by mouth two times a day. dilTIAZem CR (TIADYLT ER) 360 mg 24 hr capsule Take 1 capsule by mouth once daily. semaglutide (OZEMPIC) 1 mg/dose (4 mg/3 mL) pen Inject 1 mg subcutaneously one time a week. losartan (COZAAR) 100 mg tablet Take 1 tablet by mouth once daily. spironolactone (ALDACTONE) 25 mg tablet Take 1 tablet by mouth once daily. blood sugar diagnostic (BLOOD GLUCOSE TEST) test strip Test blood sugar(s) 1 times daily. Dx: Type 2 DM - Controlled E11.9 Insulin: No Lancets lancets Test blood sugar(s) 1 times daily. Dx: Type 2 DM - Controlled E11.9 Insulin: No ergocalciferol 50,000 unit capsule (VITAMIN D2, DRISDOL) Take 1 capsule by mouth one time a week. Wednesday vedolizumab (ENTYVIO) 300 mg injection 300mg Intravenous every 8 weeks. omeprazole (PRILOSEC) 40 mg capsule Take 1 capsule by mouth once daily as needed. docusate sodium (COLACE ORAL) Take by mouth once daily. FAMILY HISTORY Problem Relation Age of Onset Colon Cancer Paternal Uncle 55 Breast Cancer Maternal Aunt Cancer Maternal Grandfather renal cancer No Known Problems Mother Coronary Artery Disease Father 72 CABG Hypertension Father No Known Problems Brother No Known Problems Maternal Grandmother No Known Problems Paternal Grandmother Alzheimer's Disease Paternal Grandfather Social History Tobacco Use Smoking status: Former Types: Cigarettes Smokeless tobacco: Never Tobacco comments: Temporary smoker during college Vaping Use Vaping status: Never Used Substance Use Topics Alcohol use: Yes Comment: occasional Drug use: Never Review of Systems Constitutional: Negative for chills and fever. HENT: Negative for congestion and sore throat. Respiratory: Negative for cough and shortness of breath. Gastrointestinal: Negative for diarrhea and vomiting. Musculoskeletal: Positive for arthralgias. Objective BP 116/78 (BP Position: Sitting) Pulse 103 Temp 36.2 ?C (97. (more content not included)... Normal [facility] No Panel Informationon 07-28 IMPRESSION: 1. Nondisplaced fractures of the right fourth and fifth metatarsals 2 probable acute fracture of the right seventh anterior rib. Old rib fractures also identified. Activities Coordinator: AZALEA Transcribe Date/Time: Jul 28 2024 11:59A Dictated by : URBANO FRANKLIN MD This examination was interpreted and the report reviewed and electronically signed by: URBANO FRANKLIN MD on Jul 28 2024 12:12PM [facility] DIVISION OF RADIOLOGY Radiology Study observation (narrative) [facility] No Panel InformationOrdered By: [facility] Provider on 07-28-2024 [facility] XR FOOT 3V AP/LAT/OBL RTon 0 07-28-2024 XR FOOT 3V AP/LAT/OBL RT * * *Final Report* * * DATE OF EXAM: Jul 28 2024 11:29AM WOX [id number] - XR FOOT 3V AP/LAT/OBL RT / PROCEDURE REASON: Foot pain, right * * * * Physician Interpretation * * * * 2 studies discussed below: EXAM(s): XR FOOT 3V AP/LAT/OBL RT, XR RIB/CHST 3V AP RIB/OBL/CHST R EXAM DATE/TIME: 07/28/2024 11:29 AM HISTORY: 43 years old Clinical information: Foot pain, right fell last night pain in distal 4-5th MT and lower right anterior ribs marked by a bb TECHNIQUE: Images: XR FOOT 3V AP/LAT/OBL RT, XR RIB/CHST 3V AP RIB/OBL/CHST R Comparison: None. RESULT: Findings: Right foot: Acute fractures of the right fourth and fifth metatarsals at the junction of the metatarsal shaft and heads. Both nondisplaced no additional fractures identified. Soft tissue swelling.. Chest and right RIBS: No infiltrate, effusion, or evidence of pneumothorax. Cardiomediastinal silhouette unremarkable.. Fractures of the lateral aspects of the right seventh and eighth ribs with callus at both sites, consistent with old fractures. Suspected acute fracture of the anterior aspect of the right seventh rib, nondisplaced. Sutures superimposing the right upper quadrant, associated with 8 mm density/calcification IMPRESSION: 1. Nondisplaced fractures of the right fourth and fifth metatarsals 2 probable acute fracture of the right seventh anterior rib. Old rib fractures also identified. Activities Coordinator: PSCRonald Transcribe Date/Time: Jul 28 2024 11:59A Dictated by : URBANO FRANKLIN MD This examination was interpreted and the report reviewed and electronically signed by: URBANO FRANKLIN MD on Jul 28 2024 12:12PM EST [id number] Normal [facility] XR Foot - right AP and Later al and obliqueon 07-28-2024 * * *Final Report* * * DATE OF EXAM: Jul 28 2024 11:29AM WOX [id number] - XR FOOT 3V AP/LAT/OBL RT / PROCEDURE REASON: Foot pain, right * * * * Physician Interpretation * * * * 2 studies discussed below: EXAM(s): XR FOOT 3V AP/LAT/OBL RT, XR RIB/CHST 3V AP RIB/OBL/CHST R EXAM DATE/TIME: 07/28/2024 11:29 AM HISTORY: 43 years old Clinical information: Foot pain, right fell last night pain in distal 4-5th MT and lower right anterior ribs marked by a bb TECHNIQUE: Images: XR FOOT 3V AP/LAT/OBL RT, XR RIB/CHST 3V AP RIB/OBL/CHST R Comparison: None. RESULT: Findings: Right foot: Acute fractures of the right fourth and fifth metatarsals at the junction of the metatarsal shaft and heads. Both nondisplaced no additional fractures identified. Soft tissue swelling.. Chest and right RIBS: No infiltrate, effusion, or evidence of pneumothorax. Cardiomediastinal silhouette unremarkable.. Fractures of the lateral aspects of the right seventh and eighth ribs with callus at both sites, consistent with old fractures. Suspected acute fracture of the anterior aspect of the right seventh rib, nondisplaced. Sutures superimposing the right upper quadrant, associated with 8 mm density/calcification DIVISION OF RADIOLOGY Provider, [facility] - 07/28/2024 * * *Final Report* * * DATE OF EXAM: Jul 28 2024 11:29AM WOX [id number] - XR FOOT 3V AP/LAT/OBL RT / PROCEDURE REASON: Foot pain, right * * * * Physician Interpretation * * * * 2 studies discussed below: EXAM(s): XR FOOT 3V AP/LAT/OBL RT, XR RIB/CHST 3V AP RIB/OBL/CHST R EXAM DATE/TIME: 07/28/2024 11:29 AM HISTORY: 43 years old Clinical information: Foot pain, right fell last night pain in distal 4-5th MT and lower right anterior ribs marked by a bb TECHNIQUE: Images: XR FOOT 3V AP/LAT/OBL RT, XR RIB/CHST 3V AP RIB/OBL/CHST R Comparison: None. RESULT: Findings: Right foot: Acute fractures of the right fourth and fifth metatarsals at the junction of the metatarsal shaft and heads. Both nondisplaced no additional fractures identified. Soft tissue swelling.. Chest and right RIBS: No infiltrate, effusion, or evidence of pneumothorax. Cardiomediastinal silhouette unremarkable.. Fractures of the lateral aspects of the right seventh and eighth ribs with callus at both sites, consistent with old fractures. Suspected acute fracture of the anterior aspect of the right seventh rib, nondisplaced. Sutures superimposing the right upper quadrant, associated with 8 mm density/calcification IMPRESSION IMPRESSION: 1. Nondisplaced fractures of the right fourth and fifth metatarsals 2 probable acute fracture of the right seventh anterior rib. Old rib fractures also identified. Activities Coordinator: AZALEA Transcribe Date/Time: Jul 28 2024 11:59A Dictated by : URBANO FRANKLIN MD This examination was interpreted and the report reviewed and electronically signed by: URBANO FRANKLIN MD on Jul 28 2024 12:12PM EST [facility] XR RIB/CHST 3V AP RIB/OBL/CH [facility] 07-28-2024 XR RIB/CHST 3V AP RIB/OBL/CHST R * * *Final Report* * * DATE OF EXAM: Jul 28 2024 11:29AM WOX [id number] - XR RIB/CHST 3V AP RIB/OBL/CHST R / PROCEDURE REASON: Rib pain on right side * * * * Physician Interpretation * * * * 2 studies discussed below: EXAM(s): XR FOOT 3V AP/LAT/OBL RT, XR RIB/CHST 3V AP RIB/OBL/CHST R EXAM DATE/TIME: 07/28/2024 11:29 AM HISTORY: 43 years old Clinical information: Foot pain, right fell last night pain in distal 4-5th MT and lower right anterior ribs marked by a bb TECHNIQUE: Images: XR FOOT 3V AP/LAT/OBL RT, XR RIB/CHST 3V AP RIB/OBL/CHST R Comparison: None. RESULT: Findings: Right foot: Acute fractures of the right fourth and fifth metatarsals at the junction of the metatarsal shaft and heads. Both nondisplaced no additional fractures identified. Soft tissue swelling.. Chest and right RIBS: No infiltrate, effusion, or evidence of pneumothorax. Cardiomediastinal silhouette unremarkable.. Fractures of the lateral aspects of the right seventh and eighth ribs with callus at both sites, consistent with old fractures. Suspected acute fracture of the anterior aspect of the right seventh rib, nondisplaced. Sutures superimposing the right upper quadrant, associated with 8 mm density/calcification IMPRESSION: 1. Nondisplaced fractures of the right fourth and fifth metatarsals 2 probable acute fracture of the right seventh anterior rib. Old rib fractures also identified. Activities Coordinator: AZALEA Transcribe Date/Time: Jul 28 2024 11:59A Dictated by : URBANO FRANKLIN MD This examination was interpreted and the report reviewed and electronically signed by: URBANO FRANKLIN MD on Jul 28 2024 12:12PM EST [id number] Normal [facility] XR Ribs - right Views and Ch est Yeison 07-28-2024 * * *Final Report* * * DATE OF EXAM: Jul 28 2024 11:29AM WOX [id number] - XR RIB/CHST 3V AP RIB/OBL/CHST R / PROCEDURE REASON: Rib pain on right side * * * * Physician Interpretation * * * * 2 studies discussed below: EXAM(s): XR FOOT 3V AP/LAT/OBL RT, XR RIB/CHST 3V AP RIB/OBL/CHST R EXAM DATE/TIME: 07/28/2024 11:29 AM HISTORY: 43 years old Clinical information: Foot pain, right fell last night pain in distal 4-5th MT and lower right anterior ribs marked by a bb TECHNIQUE: Images: XR FOOT 3V AP/LAT/OBL RT, XR RIB/CHST 3V AP RIB/OBL/CHST R Comparison: None. RESULT: Findings: Right foot: Acute fractures of the right fourth and fifth metatarsals at the junction of the metatarsal shaft and heads. Both nondisplaced no additional fractures identified. Soft tissue swelling.. Chest and right RIBS: No infiltrate, effusion, or evidence of pneumothorax. Cardiomediastinal silhouette unremarkable.. Fractures of the lateral aspects of the right seventh and eighth ribs with callus at both sites, consistent with old fractures. Suspected acute fracture of the anterior aspect of the right seventh rib, nondisplaced. Sutures superimposing the right upper quadrant, associated with 8 mm density/calcification DIVISION OF RADIOLOGY Provider, [facility] - 07/28/2024 * * *Final Report* * * DATE OF EXAM: Jul 28 2024 11:29AM WOX [id number] - XR RIB/CHST 3V AP RIB/OBL/CHST R / PROCEDURE REASON: Rib pain on right side * * * * Physician Interpretation * * * * 2 studies discussed below: EXAM(s): XR FOOT 3V AP/LAT/OBL RT, XR RIB/CHST 3V AP RIB/OBL/CHST R EXAM DATE/TIME: 07/28/2024 11:29 AM HISTORY: 43 years old Clinical information: Foot pain, right fell last night pain in distal 4-5th MT and lower right anterior ribs marked by a bb TECHNIQUE: Images: XR FOOT 3V AP/LAT/OBL RT, XR RIB/CHST 3V AP RIB/OBL/CHST R Comparison: None. RESULT: Findings: Right foot: Acute fractures of the right fourth and fifth metatarsals at the junction of the metatarsal shaft and heads. Both nondisplaced no additional fractures identified. Soft tissue swelling.. Chest and right RIBS: No infiltrate, effusion, or evidence of pneumothorax. Cardiomediastinal silhouette unremarkable.. Fractures of the lateral aspects of the right seventh and eighth ribs with callus at both sites, consistent with old fractures. Suspected acute fracture of the anterior aspect of the right seventh rib, nondisplaced. Sutures superimposing the right upper quadrant, associated with 8 mm density/calcification IMPRESSION IMPRESSION: 1. Nondisplaced fractures of the right fourth and fifth metatarsals 2 probable acute fracture of the right seventh anterior rib. Old rib fractures also identified. Activities Coordinator: PSCRonald Transcribe Date/Time: Jul 28 2024 11:59A Dictated by : URBANO FRANKLIN MD This examination was interpreted and the report reviewed and electronically signed by: URBANO FRANKLIN MD on Jul 28 2024 12:12PM EST [facility] BLOOD TB SCREENon 06-21-2024 M. tuberculosis tuberculin stim IFN-g Ql (Bld) Negative Normal [facility] Comment on above: Order Comment: Speci stephan Type: BLOOD SPECIMENOrdering Facility: [facility] Address: [address] [place] [address] Performed By: #### I NFTBP ####[facility] LABIA [id number] [place] [address] [place] MITOGEN MINUS NIL 0.87 IU/mL Normal >=0.50 [facility] Comment on above: Order Comment: Lucita rothman Type: BLOOD SPECIMENOrdering Facility: [facility] Address: [address] [place] [address] Performed By: #### I NFTBP ####[facility] LABCLIA [id number] [place] [address] [place] TB GAMMA INTERPRETATION Infection with M. tuberculosis complex is unlikely. If latent tuberculosis infection is highly suspected, a negative result does not rule out the infection. Specimens from immunocompromised patients and those <5 years of age may show false negative results. In case of a contact investigation, please repeat 8-12 weeks after a known exposure. Normal [facility] Comment on above: Order Comment: Speci men Type: BLOOD SPECIMENOrdering Facility: [facility] Address: [address] [place] [address] Performed By: #### I NFTBP ####[facility] LABIA [id number] [place] [address] [place] TB NIL 0.00 IU/mL Normal <=8.00 [facility] Comment on above: Order Comment: Speci men Type: BLOOD SPECIMENOrdering Facility: [facility] Address: [address] [place] [address] Performed By: #### I NFTBP ####[facility] LABIA [id number] [place] [address] [place] TB1 AG MINUS NIL 0.00 IU/mL Normal <0.35 [facility] Comment on above: Order Comment: Speci men Type: BLOOD SPECIMENOrdering Facility: [facility] Address: [address] [place] [address] Performed By: #### I NFTBP ####[facility] LABIA [id number] [place] [address] [place] TB2 AG MINUS NIL 0.00 IU/mL Normal <0.35 [facility] Comment on above: Order Comment: Speci men Type: BLOOD SPECIMENOrdering Facility: [facility] Address: [address] [place] [address] Performed By: #### I NFTBP ####[facility] LABIA [id number] [place] [address] [place] HBV surface Ag Ser Qlon HBV surface Ag Ql (S) Negative Normal Negative [facility] Comment on above: Order Comment: Speci men Type: BLOOD SPECIMENOrdering Facility: [facility] Address: [address] [place] [address] Performed By: #### 5 195-3 ####[facility] LABCLIA [id number] [address]DA SILVERDESK [id number] OF [facility] CNOVon 04-05-2024 CNOV Office Visit (FAMPWS ) ANNABELLA CHAPA ([id number]) 1980 M Date Time Provider Department 04/05/24 1:00 PM [facility] During your visit today, we recorded the following information about you: Pulse Respiration Blood pressure Weight 96/minute 16/minute 124/78 106.1 kg Farida Sloan APRN.CNP 04/07/2024 11:11 PM Signed This is a 43 year old male who presents today with: Patient presents with: Recheck: 6 month follow up HISTORY OF PRESENT ILLNESS: Annabella Chapa is a 43 year old male. Patient presents with: Recheck: 6 month follow up Sick for the last 1 1/2 weeks. Refers that he has been tired. Will feel like it is sitting in his chest. Cough - bright neon green mucus. HTN: Patient is compliant with meds Yes Monitors bp at home: no -- gets checked when he has infusions. Denies side effects: Yes. Chest pain: No. Dyspnea: No. Edema: a little. . Palpitations: No. Syncope: No. Headache: No. Dizziness: No. Crohns Been good. Has upcoming appt with GI. DM: Reports overall feeling well. Medication side effects: No Home sugar checks: no Hypoglycemic spells: No. Watching diet: just trying to keep sodium down. Unexpected weight loss: No. Polyuria, polydipsia: No. Vision Changes: No. Foot lesions or numbness or pain: No. PAST MEDICAL HISTORY: PAST MEDICAL HISTORY Diagnosis Date Anemia B12 deficiency 06/30/2018 Calculus of kidney 11/23/2017 left ureterolithiasis Crohn's disease of small intestine with complication ([facility]) 03/02/2017 DDD (degenerative disc disease), cervical 02/04/2018 on MRI DDD (degenerative disc disease), lumbar 02/04/2018 on MRI H/O right hemicolectomy 07/2000 Hemorrhoids HTN (hypertension) Iron deficiency anemia due to chronic blood loss 10/08/2018 Obesity, Class II, BMI 35-39.9 06/30/2018 Proximal limb muscle weakness 02/04/2018 neg. myositis, vasculitis, Lyme, WNV, GBS work up. Tachycardia 02/21/2018 Type 2 diabetes mellitus without complication, without long-term current use of insulin ([facility]) 12/15/2022 Vitamin D deficiency 06/30/2018 PAST SURGICAL HISTORY Procedure Laterality Date COLECTOMY PARTIAL W ANASTOM Right 07/2000 Right hemicolectomy [facility] COLONOSCOPY 05/11/2016 Grade 1 internal hemorrhoids, severe inflammation at surgical site COLONOSCOPY 06/23/2005 Crohn's activity at ileocolonic anastamosis COLONOSCOPY 09/17/2006 Persistent surgical anastomotic stricture.Significant inflammation and ulceration on ileal side of anastomosis COLONOSCOPY 05/25/2018 Stenosis of ileocolonic anastomosis, Crohn's disease, hemorrhoids, markedly ulcerated colonic mucosa COLONOSCOPY 02/03/2019 chronic active colitis COLONOSCOPY SCREENING 07/19/2023 Non-bleeding internal hemorrhoids, tubular adenoma EGD 02/03/2019 cervical inlet patch, minimal active inflammation EYE SURGERY HX PAST SURGICAL HISTORY OF 1998 left ankle broken, screws REMV CATARACT EXTRACAP,INSERT LENS Bilateral 04/2023 ALLERGIES Ciprofloxacin MEDICATIONS Current Outpatient Medications Medication Sig budesonide, enteric coated (ENTOCORT EC) 3 mg 24 hr capsule Take 3 capsules by mouth once daily. carvedilol (COREG) 25 mg tablet Take 1 tablet by mouth two times a day. dilTIAZem CR (TIADYLT ER) 360 mg 24 hr capsule Take 1 capsule by mouth once daily. cyanocobalamin 1,000 mcg/mL INJECT 1 ML INTRAMUSCULARLY ONCE EVERY MONTH. semaglutide (OZEMPIC) 1 mg/dose (4 mg/3 mL) pen Inject 1 mg subcutaneously one time a week. losartan (COZAAR) 100 mg tablet Take 1 tablet by mouth once daily. spironolactone (ALDACTONE) 25 mg tablet Take 1 tablet by mouth once daily. blood sugar diagnostic (BLOOD GLUCOSE TEST) test strip Test blood sugar(s) 1 times daily. Dx: Type 2 DM - Controlled E11.9 Insulin: No Lancets lancets Test blood sugar(s) 1 times daily. Dx: Type 2 DM - Controlled E11.9 Insulin: No ergocalciferol 50,000 unit capsule (VITAMIN D2, DRISDOL) Take 1 capsule by mouth one time a week. Wednesday vedolizumab (ENTYVIO) 300 mg injection 300mg Intravenous every 8 weeks. omeprazole (PRILOSEC) 40 mg capsule Take 1 capsule by mouth once daily as needed. docusate sodium (COLACE ORAL) Take by mouth once daily. No current facility-administered medications for this visit. FAMILY HISTORY Problem Relation Age of Onset Colon Cancer Paternal Uncle 55 Breast Cancer Maternal Aunt Cancer Maternal Grandfather renal cancer No Known Problems Mother Coronary Artery Disease Father 72 CABG Hypertension Father No Known Problems Brother No Known Problems Maternal Grandmother No Known Problems Paternal Grandmother Alzheimer's Disease Paternal Grandfather Social History Tobacco Use Smoking status: Former Types: Cigarettes Smokeless tobacco: Never Tobacco comments: Temporary smoker during college Vaping Use Vaping status: Never Used Sub (more content not included)... Normal [facility] ALBUMIN/CREATININE RATIO, UR INEon 03-31-2024 Albumin DL <= 20 mg/L (U) [Mass/Vol] 25.5 mg/L Normal [facility] Comment on above: Order Comment: Speci men Type: URINE SPECIMENOrdering Facility: [facility] Address: [address] [place] [address] Performed By: #### U ACR ####[facility] LABCLIA [id number] [place] [address] [place] Albumin/Creatinine (U) [Mass ratio] 5 mg/g Normal <30 [facility] Comment on above: Order Comment: Speci men Type: URINE SPECIMENOrdering Facility: [facility] Address: [address] [place] [address] Result Comment: Adul t Male and Female Nephrotic Criteria: <30 mg/g is considered normal to mildly increased 30-300 mg/g is considered moderately increased >300 mg/g is considered severely increased KDIGO. (2013). KDIGO 2012 Clinical Practice Guideline for the Evaluation and Management of Chronic Kidney Disease. Official Journal of the International Society of Nephrology, 3(1), 1-150. Performed By: #### U ACR ####[facility] LABCLIA [id number] [place] [address] [place] Creatinine (U) [Mass/Vol] 489.9 mg/dL High 20.0-300.0 [facility] Comment on above: Order Comment: Speci men Type: URINE SPECIMENOrdering Facility: [facility] Address: [address] [place] [address] Performed By: #### U ACR ####[facility] LABCLIA [id number] [place] [address] [place] CBC W Auto Differential pane l (Bld)on 03-31-2024 Basophils (Bld) [#/Vol] 10*3/uL Normal <0.11 [facility] Comment on above: Order Comment: Speci men Type: BLOOD SPECIMENOrdering Facility: [facility] Address: [address] [place] [address] Performed By: #### 5 7021-8 ####[facility] MILLWNCLIA [id number] [place] [address] [place] Basophils/100 WBC (Bld) 0.2 % Normal [facility] Comment on above: Order Comment: Speci men Type: BLOOD SPECIMENOrdering Facility: [facility] Address: [address] [place] [address] Performed By: #### 5 7021-8 ####[facility] MILLWNCLIA [id number] [place] [address] [place] Differential cell count method Nom (Bld) Auto Normal [facility] Comment on above: Order Comment: Speci men Type: BLOOD SPECIMENOrdering Facility: [facility] Address: [address] [place] [address] Performed By: #### 5 7021-8 ####[facility] ORINJULIAALEENAKerri [id number] [place] [address] [place] Eosinophils (Bld) [#/Vol] 0.08 10*3/uL Normal <0.46 [facility] Comment on above: Order Comment: Speci men Type: BLOOD SPECIMENOrdering Facility: [facility] Address: [address] [place] [address] Performed By: #### 5 7021-8 ####[facility]ENTERJESSIEKerri [id number] [place] [address] [place] Eosinophils/100 WBC (Bld) 0.7 % Normal [facility] Comment on above: Order Comment: Speci men Type: BLOOD SPECIMENOrdering Facility: [facility] Address: [address] [place] [address] Performed By: #### 5 7021-8 ####[facility] CENTERNCWILIAM [id number] [place] [address] [place] Erythrocyte distribution width (RBC) [Ratio] 19.8 % High 11.5-15.0 [facility] Comment on above: Order Comment: Speci men Type: BLOOD SPECIMENOrdering Facility: [facility] Address: [address] [place] [address] Performed By: #### 5 7021-8 ####[facility]ENTERNCLIA [id number] [place] [address] [place] Hematocrit (Bld) [Volume fraction] 37.6 % Low 39.0-51.0 [facility] Comment on above: Order Comment: Speci men Type: BLOOD SPECIMENOrdering Facility: [facility] Address: [address] [place] [address] Performed By: #### 5 7021-8 ####[facility]ENTERNCLIA [id number] [place] [address] [place] Hemoglobin (Bld) [Mass/Vol] 11.5 g/dL Low 13.0-17.0 [facility] Comment on above: Order Comment: Speci men Type: BLOOD SPECIMENOrdering Facility: [facility] Address: [address] [place] [address] Performed By: #### 5 7021-8 ####[facility] [id number] [place] [address] [place] Immature granulocytes (Bld) [#/Vol] 0.12 10*3/uL High <0.10 [facility] Comment on above: Order Comment: Speci men Type: BLOOD SPECIMENOrdering Facility: [facility] Address: [address] [place] [address] Performed By: #### 5 7021-8 ####[facility] [id number] [place] [address] [place] Immature granulocytes/100 WBC (Bld) 1.0 % Normal [facility] Comment on above: Order Comment: Speci men Type: BLOOD SPECIMENOrdering Facility: [facility] Address: [address] [place] [address] Performed By: #### 5 7021-8 ####[facility]GENCYA [id number] [place] [address] [place] Lymphocytes (Bld) [#/Vol] 1.52 10*3/uL Normal 1.00-4.00 [facility] Comment on above: Order Comment: Speci men Type: BLOOD SPECIMENOrdering Facility: [facility] Address: [address] [place] [address] Performed By: #### 5 7021-8 ####[facility]ENTERNCLI [id number] [place] [address] [place] Lymphocytes/100 WBC (Bld) 12.9 % Normal [facility] Comment on above: Order Comment: Speci men Type: BLOOD SPECIMENOrdering Facility: [facility] Address: [address] [place] [address] Performed By: #### 5 7021-8 ####[facility]ERNCCENTR[facility] [id number] [place] [address] [place] MCH (RBC) [Entitic mass] 23.0 pg Low 26.0-34.0 [facility] Comment on above: Order Comment: Speci men Type: BLOOD SPECIMENOrdering Facility: [facility] Address: [address] [place] [address] Performed By: #### 5 7021-8 ####[facility]ERNCCENTR[facility] [id number] [place] [address] [place] MCHC (RBC) [Mass/Vol] 30.6 g/dL Normal 30.5-36.0 [facility] Comment on above: Order Comment: Speci men Type: BLOOD SPECIMENOrdering Facility: [facility] Address: [address] [place] [address] Performed By: #### 5 7021-8 ####[facility]ENTERNCLIA [id number] [place] [address] [place] MCV (RBC) [Entitic vol] 75.0 fL Low 80.0-100.0 [facility] Comment on above: Order Comment: Speci men Type: BLOOD SPECIMENOrdering Facility: [facility] Address: [address] [place] [address] Performed By: #### 5 7021-8 ####[facility] CENTERNCLI [id number] [place] [address] [place] Monocytes (Bld) [#/Vol] 0.80 10*3/uL Normal <0.87 [facility] Comment on above: Order Comment: Speci men Type: BLOOD SPECIMENOrdering Facility: [facility] Address: [address] [place] [address] Performed By: #### 5 7021-8 ####[facility] ORINMARGARITA [id number] [place] [address] [place] Monocytes/100 WBC (Bld) 6.8 % Normal [facility] Comment on above: Order Comment: Speci men Type: BLOOD SPECIMENOrdering Facility: [facility] Address: [address] [place] [address] Performed By: #### 5 7021-8 ####[facility]ENTERNCLIA [id number] [place] [address] [place] Neutrophils (Bld) [#/Vol] 9.20 10*3/uL High 1.45-7.50 [facility] Comment on above: Order Comment: Speci men Type: BLOOD SPECIMENOrdering Facility: [facility] Address: [address] [place] [address] Performed By: #### 5 7021-8 ####[facility] CENTERNCA [id number] [place] [address] [place] Neutrophils/100 WBC (Bld) 78.4 % Normal [facility] Comment on above: Order Comment: Speci men Type: BLOOD SPECIMENOrdering Facility: [facility] Address: [address] [place] [address] Performed By: #### 5 7021-8 ####[facility]ENTERNCLIA [id number] [place] [address] [place] Nucleated RBC (Bld) [#/Vol] 10*3/uL Normal <0.01 [facility] Comment on above: Order Comment: Speci men Type: BLOOD SPECIMENOrdering Facility: [facility] Address: [address] [place] [address] Performed By: #### 5 7021-8 ####[facility] ORINJULIALIA [id number] [place] [address] [place] Nucleated RBC/100 WBC (Bld) [Ratio] 0.0 /100 WBC Normal [facility] Comment on above: Order Comment: Speci men Type: BLOOD SPECIMENOrdering Facility: [facility] Address: [address] [place] [address] Performed By: #### 5 7021-8 ####[facility] CENTERJANICE [id number] [place] [address] [place] Platelet mean volume (Bld) [Entitic vol] 9.4 fL Normal 9.0-12.7 [facility] Comment on above: Order Comment: Speci men Type: BLOOD SPECIMENOrdering Facility: [facility] Address: [address] [place] [address] Performed By: #### 5 7021-8 ####[facility] CENTERJESSIEKerri [id number] [place] [address] [place] Platelets (Bld) [#/Vol] 209 10*3/uL Normal 150-400 [facility] Comment on above: Order Comment: Speci men Type: BLOOD SPECIMENOrdering Facility: [facility] Address: [address] [place] [address] Performed By: #### 5 7021-8 ####[facility]OSPITALALEENAA [id number] [place] [address] [place] RBC (Bld) [#/Vol] 5.01 10*6/uL Normal 4.20-6.00 [facility] Comment on above: Order Comment: Speci men Type: BLOOD SPECIMENOrdering Facility: [facility] Address: [address] [place] [address] Performed By: #### 5 7021-8 ####[facility]ENTERNCCENTRAL [facility] [id number] [place] [id number] [place] WBC (Bld) [#/Vol] 11.74 10*3/uL High 3.70-11.00 [facility] Comment on above: Order Comment: Speci men Type: BLOOD SPECIMENOrdering Facility: [facility] Address: [address] [place] [address] Performed By: #### 5 7021-8 ####[facility] MILLTOWNCLIA [id number] [place] [address] [place] Comprehensive metabolic 2000 panelon 03-31-2024 Albumin [Mass/Vol] 3.9 g/dL Normal 3.9-4.9 [facility] Comment on above: Order Comment: Speci men Type: BLOOD SPECIMENOrdering Facility: [facility] Address: [address] [place] [address] Performed By: #### 2 4323-8 ####[facility]ENTERNCLIA [id number] [place] [address] [place] ALP [Catalytic activity/Vol] 78 U/L Normal 38-113 [facility] Comment on above: Order Comment: Speci men Type: BLOOD SPECIMENOrdering Facility: [facility] Address: [address] [place] [address] Performed By: #### 2 4323-8 ####[facility]ITALWNCLIA [id number] [place] [address] [place] ALT [Catalytic activity/Vol] 44 U/L Normal 10-54 [facility] Comment on above: Order Comment: Speci men Type: BLOOD SPECIMENOrdering Facility: [facility] Address: [address] [place] [address] Performed By: #### 2 4323-8 ####[facility] MILLTOWNCLIA [id number] [place] [address] [place] Anion gap [Moles/Vol] 15 mmol/L Normal 8-15 [facility] Comment on above: Order Comment: Speci men Type: BLOOD SPECIMENOrdering Facility: [facility] Address: [address] [place] [address] Performed By: #### 2 4323-8 ####[facility] KATIENCLIA [id number] [place] [address] [place] AST [Catalytic activity/Vol] 24 U/L Normal 14-40 [facility] Comment on above: Order Comment: Speci men Type: BLOOD SPECIMENOrdering Facility: [facility] Address: [address] [place] [address] Performed By: #### 2 4323-8 ####[facility] ORINGreysonNCLIA [id number] [place] [address] [place] Bilirubin [Mass/Vol] 0.7 mg/dL Normal 0.2-1.3 [facility] Comment on above: Order Comment: Speci men Type: BLOOD SPECIMENOrdering Facility: [facility] Address: [address] [place] [address] Performed By: #### 2 4323-8 ####[facility] ORINNORTH CREEKNCLIA [id number] [place] [address] [place] Calcium [Mass/Vol] 9.0 mg/dL Normal 8.5-10.2 [facility] Comment on above: Order Comment: Speci men Type: BLOOD SPECIMENOrdering Facility: [facility] Address: [address] [place] [address] Performed By: #### 2 4323-8 ####[facility] CENTERNCLIA [id number] [place] [address] [place] Chloride [Moles/Vol] 104 mmol/L Normal 98-107 [facility] Comment on above: Order Comment: Speci men Type: BLOOD SPECIMENOrdering Facility: [facility] Address: [address] [place] [address] Performed By: #### 2 4323-8 ####[facility]ITALWNCLIA [id number] [place] [address] [place] CO2 [Moles/Vol] 18 mmol/L Low 22-30 [facility] Comment on above: Order Comment: Speci men Type: BLOOD SPECIMENOrdering Facility: [facility] Address: [address] [place] [address] Performed By: #### 2 4323-8 ####[facility]OSPITALLI [id number] [place] [address] [place] Creatinine [Mass/Vol] 0.99 mg/dL Normal 0.73-1.22 [facility] Comment on above: Order Comment: Speci men Type: BLOOD SPECIMENOrdering Facility: [facility] Address: [address] [place] [address] Performed By: #### 2 4323-8 ####[facility] [id number] [place] [address] [place] Creatinine and Glomerular filtration rate.predicted panel (S/P/Bld) 96 mL/min/1.73m??? Normal >=60 [facility] Comment on above: Order Comment: Speci men Type: BLOOD SPECIMENOrdering Facility: [facility] Address: [address] [place] [address] Result Comment: Macarena mated Glomerular Filtration Rate (eGFR) is calculated using the 2020 CKD-EPI creatinine equation. This equation utilizes serum creatinine, sex, and age as parameters. The creatinine assay has traceable calibration to isotope dilution-mass spectrometry. Refer to KDIGO guidelines for clinical interpretation. In patients with unstable renal function, e.g. those with acute kidney injury, the eGFR may not accurately reflect actual GFR. Performed By: #### 2 4323-8 ####[facility]PITALWNCLIA [id number] [place] [address] [place] Glucose [Mass/Vol] 124 mg/dL High 74-99 [facility] Comment on above: Order Comment: Speci men Type: BLOOD SPECIMENOrdering Facility: [facility] Address: [address] [place] [address] Result Comment: The [place] [employer] Association (ADA) provides guidance for cutoff values for fasting glucose and random glucose. The ADA defines fasting as no caloric intake for at least 8 hours. Fasting plasma glucose results between 100 to 125 [...] Standards of Medical Care in Diabetes 2016, [place] [employer]. Diabetes Care. 2016.39(Suppl 1). Performed By: #### 2 4323-8 ####[facility] CENTERJESSIELIKerri [id number] [place] [address] [place] Potassium [Moles/Vol] 3.7 mmol/L Normal 3.7-5.1 [facility] Comment on above: Order Comment: Lucita rothman Type: BLOOD SPECIMENOrdering Facility: [facility] Address: [address] [place] [address] Performed By: #### 2 4323-8 ####[facility] CENTERJANICE [id number] [place] [address] [place] Protein [Mass/Vol] 6.1 g/dL Low 6.3-8.0 [facility] Comment on above: Order Comment: Elisai men Type: BLOOD SPECIMENOrdering Facility: [facility] Address: [address] [place], [place] [id number] Performed By: #### 2 4323-8 ####[facility]ENTERJESSIELIA [id number] [place] [address] [place] Sodium [Moles/Vol] 137 mmol/L Normal 136-144 [facility] Comment on above: Order Comment: Lucita men Type: BLOOD SPECIMENOrdering Facility: [facility] Address: [address] [place] [address] Performed By: #### 2 4323-8 ####[facility] CENTERJANICE [id number] [place] [address] [place] Urea nitrogen [Mass/Vol] 18 mg/dL Normal 9-24 [facility] Comment on above: Order Comment: Elisai men Type: BLOOD SPECIMENOrdering Facility: [facility] Address: [address] [place] [address] Performed By: #### 2 4323-8 ####[facility] CENTERNCALEENA [id number] [place] [address] [place] HbA1c (Bld)on 03-31-2024 Average glucose Estimated from glycated hemoglobin (Bld) [Mass/Vol] 126 mg/dL Normal [facility] Comment on above: Order Comment: Lucita men Type: BLOOD SPECIMENOrdering Facility: [facility] Address: [address] [place] [address] Result Comment: eAG: (Estimated average glucose) is a calculated value from HgbA1c and is sales representative cash registers of the average blood glucose level in the last 2-3 month period. Performed By: #### 5 5454-3 ####[facility] LABCLIA [id number] [place] [address] [place] HbA1c (Bld) [Mass fraction] 6.0 % High 4.3-5.6 [facility] Comment on above: Order Comment: Lucita stephan Type: BLOOD SPECIMENOrdering Facility: [facility] Address: [address] [place] [address] Result Comment: Amer ican Diabetes Association guidelines indicate that patients with HgbA1c in the range 5.7-6.4% are at increased risk for development of diabetes, and intervention by lifestyle modification may be beneficial. HgbA1c greater or equal to 6.5% is considered diagnostic of diabetes. Performed By: #### 5 5454-3 ####[facility] LABCLIA [id number] [place] [address] [place] Lipid 1996 panelon 4 Cholesterol [Mass/Vol] 160 mg/dL Normal <200 [facility] Comment on above: Order Comment: Speci men Type: BLOOD SPECIMENOrdering Facility: [facility] Address: [address] [place] [address] Result Comment: <200 mg/dL, Desirable 200-239 mg/dL, Borderline high >239 mg/dL, High Performed By: #### 2 4331-1 ####[facility] LABCLIA [id number] [place] [id number] [place] [address] [place]#### 3016-3 ####[facility] LABCLIA [id number] [place] [address] [place] Cholesterol in HDL [Mass/Vol] 43 mg/dL Normal >39 [facility] Comment on above: Order Comment: Speci men Type: BLOOD SPECIMENOrdering Facility: [facility] Address: [address] [place] [address] Result Comment: 40-5 9 mg/dL, Acceptable >59 mg/dL, High: Negative risk factor for coronary heart disease <40 mg/dL, Low: Positive risk factor for coronary heart disease Performed By: #### 2 4331-1 ####[facility] LABCLIA [id number] [address] [id number] [place] [address] [place]#### 3016-3 ####[facility] LABCLIA [id number] [place] [address] [place] Cholesterol in LDL [Mass/Vol] 70 mg/dL Normal <100 [facility] Comment on above: Order Comment: Speci men Type: BLOOD SPECIMENOrdering Facility: [facility] Address: [address] [place] [address] Result Comment: <100 mg/dL, Optimal 100-129 mg/dL, Near optimal/above optimal 130-159 mg/dL, Borderline high 160-189 mg/dL, High >189 mg/dL, Very high Secondary prevention optimal LDL Cholesterol levels are recommended to be < 70 mg/dL Performed By: #### 2 4331-1 ####[facility] LABCLIA [id number] [id number] [place] [address] [place]#### 3016-3 ####[facility] LABCLIA [id number] [address] STATES OF [facility] Cholesterol in LDL/Cholesterol in HDL [Mass ratio] 1.63 {ratio} Normal <2.54 [facility] Comment on above: Order Comment: Speci men Type: BLOOD SPECIMENOrdering Facility: [facility] Address: [address] [place] [address] Result Comment: Refe rence: 1. National Cholesterol Education Program ATP III Guideline At-A-Glance Quick Desk Reference: National Heart, Lung, and Blood [place]. National Institutes of Health. 2001: NIH Publication No. 01-3305. 2. An International Atherosclerosis Society position paper: global recommendations for the management of dyslipidemia: executive summary, Atherosclerosis. 2014: 232(2):410-413. Performed By: #### 2 4331-1 ####[facility] LABCLIA [id number] [address] [id number] [place] [address] [place]#### 3016-3 ####[facility] LABCLIA [id number] [place] [address] [place] Cholesterol in VLDL [Mass/Vol] 47 mg/dL High <30 [facility] Comment on above: Order Comment: Speci men Type: BLOOD SPECIMENOrdering Facility: [facility] Address: [address] [place] [address] Performed By: #### 2 4331-1 ####[facility] LABCLIA [id number] [place] [address] [place] [facility] [id number] [place] [address] [place]#### 3016-3 ####[facility] LABCLIA [id number] [place] [address] [place] Cholesterol non HDL [Mass/Vol] 117 mg/dL Normal <130 [facility] Comment on above: Order Comment: Speci men Type: BLOOD SPECIMENOrdering Facility: [facility] Address: [address] [place] [address] Result Comment: <130 mg/dL, Optimal 130-159 mg/dL, Near optimal/above optimal 160-189 mg/dL, Borderline high 190-219 mg/dL, High >219 mg/dL, Very high Secondary prevention optimal non HDL Cholesterol levels are recommended to be <100 mg/dL Performed By: #### 2 4331-1 ####[facility] LABCLIA [id number] [place] [address] [place] [facility] [id number] [place] [address] [place]#### 3016-3 ####[facility] LABCLIA [id number] [place] [address] [place] Cholesterol.total/Chol esterol in HDL [Mass ratio] 3.72 {ratio} Normal <5.10 [facility] Comment on above: Order Comment: Speci men Type: BLOOD SPECIMENOrdering Facility: [facility] Address: [address] [place], [place] [address] Performed By: #### 2 4331-1 ####[facility] LABCLIA [id number] [address] [address] [place] [facility] [place] [facility] [id number] [place] [address] [place]#### 3016-3 ####[facility] LABCLIA [id number] [place] [id number] [place] FASTING TIME 12 hrs Normal [facility] Comment on above: Order Comment: Speci men Type: BLOOD SPECIMENOrdering Facility: [facility] Address: [address] [place], [place] [address] Performed By: #### 2 4331-1 ####[facility] LABCLIA [id number] [place] [address] [place] [facility] [id number] [place] [address] [place]#### 3016-3 ####[facility] LABCLIA [id number] [address] [address] [place] Triglyceride [Mass/Vol] 234 mg/dL High <150 [facility] Comment on above: Order Comment: Speci men Type: BLOOD SPECIMENOrdering Facility: [facility] Address: [address] [place], [place] [address] Result Comment: <150 mg/dL, Normal 150-199 mg/dL, Borderline high 200-499 mg/dL, High >499 mg/dL, Very high Performed By: #### 2 4331-1 ####[facility] LABCLIA [id number] [address] [address] [place] [facility] [id number] [place] [address] [place]#### 3016-3 ####[facility] LABIA [id number] [place] [address] [place] TSH SerPl-aCncon 03-31-2024 TSH Qn 2.130 m[IU]/L Normal 0.270-4.200 [facility] Comment on above: Order Comment: Speci men Type: BLOOD SPECIMENOrdering Facility: [facility] Address: [address] [place] [address] Performed By: #### 2 4331-1 ####[facility] [id number] [address] STATES OF [facility] [id number] [place] [address] [place]#### 3016-3 ####[facility] LABIA [id number] [address] [place] CNOVSPon 03-20-2024 CNOVSP Visit (SP) Office (HEMAWS) ANNABELLA CHAPA ([id number]) 1980 M Date Time Provider Department 03/20/24 2:30 PM TREATMENT RM [facility] WSTRHEMAWS During your visit today, we recorded the following information about you: Temperature Pulse Blood pressure 97.4 degrees 63/minute 131/85 Referring Provider: MK SANCHEZ [[id number]] Allergies As of Date: 03/20/2024 Noted Allergy Reaction CIPROFLOXACIN 03/02/2017 5 - Intolerance Comments: Hallucination Date Reviewed: 03/20/2024 Reviewed by: Flaco, Jasper E, RN - Fully Assessed Reason for Visit: Non-Chemotherapy Treatment [795] Primary Visit Diagnosis:Crohn's disease of both small and large intestine with other complication (HCC) [K50.978] Order(s):acetaminophen 650 mg tab(s) (TYLENOL)Disp: Rfl: diphenhydrAMINE 25 mg capsule (BENADRYL)Disp: Rfl: [] vedolizumab 300 mg in NaCl 0.9% 250 mL (ENTYVIO)Disp: Rfl: NaCl 0.9% iv infusionDisp: Rfl: diphenhydrAMINE 50 mg injection (BENADRYL)Disp: Rfl: hydrocortisone sodium succinate (PF) 100 mg injection (Solu-CORTEF)Disp: Rfl: EPINEPHrine HCl (PF) 1 mg/mL (1 mL) 0.3 mg injectionDisp: Rfl: BCN NURSING COMMUNICATION [[id number]] Order #: [id number]: 1 STANDING Prescriptions as of 03/20/2024 - budesonide, enteric coated (ENTOCORT EC) 3 mg 24 hr capsule take 3 capsules by mouth every day - cyanocobalamin 1,000 mcg/mL INJECT 1 ML INTRAMUSCULARLY ONCE EVERY MONTH. - semaglutide (OZEMPIC) 1 mg/dose (4 mg/3 mL) pen Inject 1 mg subcutaneously one time a week. - losartan (COZAAR) 100 mg tablet Take 1 tablet by mouth once daily. - carvedilol (COREG) 25 mg tablet Take 1 tablet by mouth two times a day. - dilTIAZem CR (TIADYLT ER) 360 mg 24 hr capsule Take 1 capsule by mouth once daily. - spironolactone (ALDACTONE) 25 mg tablet Take 1 tablet by mouth once daily. - blood sugar diagnostic (BLOOD GLUCOSE TEST) test strip Test blood sugar(s) 1 times daily. Dx: Type 2 DM - Controlled E11.9 Insulin: No - Lancets lancets Test blood sugar(s) 1 times daily. Dx: Type 2 DM - Controlled E11.9 Insulin: No - ergocalciferol 50,000 unit capsule (VITAMIN D2, DRISDOL) Take 1 capsule by mouth one time a week. Wednesday - vedolizumab (ENTYVIO) 300 mg injection 300mg Intravenous every 8 weeks. - omeprazole (PRILOSEC) 40 mg capsule Take 1 capsule by mouth once daily as needed. - docusate sodium (COLACE ORAL) Take by mouth once daily. Facility-Administered Medications as of 03/20/2024 - acetaminophen 650 mg tab(s) (TYLENOL) - diphenhydrAMINE 25 mg capsule (BENADRYL) - NaCl 0.9% iv infusion - diphenhydrAMINE 50 mg injection (BENADRYL) - hydrocortisone sodium succinate (PF) 100 mg injection (Solu-CORTEF) - EPINEPHrine HCl (PF) 1 mg/mL (1 mL) 0.3 mg injection Problem List As Of Date 03/20/2024 Noted Resolved Crohn's disease of both small and large intesti*03/02/2017 Generalized abdominal pain [R10.84] 04/14/2017 06/30/2018 Tachycardia [R00.0] 02/21/2018 Hypertension, essential [I10] Calculus of kidney [N20.0] 11/23/2017 Vitamin B12 deficiency [E53.8] 06/30/2018 Vitamin D deficiency [E55.9] 06/30/2018 Obesity, Class II, BMI 35-39.9 [E66.812] 06/30/2018 Iron deficiency anemia due to chronic blood los*10/08/2018 Anemia [D64.9] 10/14/2018 Other constipation [K59.09] 10/14/2018 Chronic right-sided low back pain without sciat*06/06/2020 Arthralgia [M25.50] 09/20/2020 Well adult exam [Z00.00] 09/20/2020 Elevated alanine aminotransferase (ALT) level [*11/13/2020 Exacerbation of Crohn's disease, without compli*01/02/2021 Intra-abdominal abscess (HCC) [K65.1] 01/07/2021 Type 2 diabetes mellitus without complication, *12/15/2022 Encounter Status:Closed by JASPER STAPLETON on 03/20/24 [facility] CNOVSPon 01-24-2024 CNOVSP Visit (SP) Office (HEMAWS) ANNABELLA CHAPA ([id number]) 1980 M Date Time Provider Department 01/24/24 2:30 PM TREATMENT RM 14 [facility] WSTRHEMA[facility] During your visit today, we recorded the following information about you: Temperature Pulse Respiration Blood pressure 98.7 degrees 94/minute 16/minute 135/90 Weight 108.7 kg Referring Provider: MK SANCHEZ [[id number]] Allergies As of Date: 01/24/2024 Noted Allergy Reaction CIPROFLOXACIN 03/02/2017 5 - Intolerance Comments: Hallucination Date Reviewed: 01/24/2024 Reviewed by: Amna Velazquez RN - Fully Assessed Primary Visit Diagnosis:Crohn's disease of both small and large intestine with other complication (HCC) [K50.818] Order(s):acetaminophen 650 mg tab(s) (TYLENOL)Disp: Rfl: diphenhydrAMINE 25 mg capsule (BENADRYL)Disp: Rfl: [] vedolizumab 300 mg in NaCl 0.9% 250 mL (ENTYVIO)Disp: Rfl: NaCl 0.9% iv infusionDisp: Rfl: diphenhydrAMINE 50 mg injection (BENADRYL)Disp: Rfl: hydrocortisone sodium succinate (PF) 100 mg injection (Solu-CORTEF)Disp: Rfl: EPINEPHrine HCl (PF) 1 mg/mL (1 mL) 0.3 mg injectionDisp: Rfl: BCN NURSING COMMUNICATION [[id number]] Order #: [id number]: 1 STANDING Prescriptions as of 01/24/2024 - semaglutide (OZEMPIC) 1 mg/dose (4 mg/3 mL) pen Inject 1 mg subcutaneously one time a week. - losartan (COZAAR) 100 mg tablet Take 1 tablet by mouth once daily. - cyanocobalamin 1,000 mcg/mL INJECT 1 ML INTRAMUSCULARLY ONCE EVERY MONTH. - budesonide, enteric coated (ENTOCORT EC) 3 mg 24 hr capsule take 3 capsules by mouth every day - carvedilol (COREG) 25 mg tablet Take 1 tablet by mouth two times a day. - dilTIAZem CR (TIADYLT ER) 360 mg 24 hr capsule Take 1 capsule by mouth once daily. - spironolactone (ALDACTONE) 25 mg tablet Take 1 tablet by mouth once daily. - blood sugar diagnostic (BLOOD GLUCOSE TEST) test strip Test blood sugar(s) 1 times daily. Dx: Type 2 DM - Controlled E11.9 Insulin: No - Lancets lancets Test blood sugar(s) 1 times daily. Dx: Type 2 DM - Controlled E11.9 Insulin: No - ergocalciferol 50,000 unit capsule (VITAMIN D2, DRISDOL) Take 1 capsule by mouth one time a week. Wednesday - vedolizumab (ENTYVIO) 300 mg injection 300mg Intravenous every 8 weeks. - omeprazole (PRILOSEC) 40 mg capsule Take 1 capsule by mouth once daily as needed. - docusate sodium (COLACE ORAL) Take by mouth once daily. Facility-Administered Medications as of 01/24/2024 - acetaminophen 650 mg tab(s) (TYLENOL) - diphenhydrAMINE 25 mg capsule (BENADRYL) - NaCl 0.9% iv infusion - diphenhydrAMINE 50 mg injection (BENADRYL) - hydrocortisone sodium succinate (PF) 100 mg injection (Solu-CORTEF) - EPINEPHrine HCl (PF) 1 mg/mL (1 mL) 0.3 mg injection Problem List As Of Date 01/24/2024 Noted Resolved Crohn's disease of both small and large intesti*03/02/2017 Generalized abdominal pain [R10.84] 04/14/2017 06/30/2018 Tachycardia [R00.0] 02/21/2018 Hypertension, essential [I10] Calculus of kidney [N20.0] 11/23/2017 Vitamin B12 deficiency [E53.8] 06/30/2018 Vitamin D deficiency [E55.9] 06/30/2018 Obesity, Class II, BMI 35-39.9 [E66.9] 06/30/2018 Iron deficiency anemia due to chronic blood los*10/08/2018 Anemia [D64.9] 10/14/2018 Other constipation [K59.09] 10/14/2018 Chronic right-sided low back pain without sciat*06/06/2020 Arthralgia [M25.50] 09/20/2020 Well adult exam [Z00.00] 09/20/2020 Elevated alanine aminotransferase (ALT) level [*11/13/2020 Exacerbation of Crohn's disease, without compli*01/02/2021 Intra-abdominal abscess (HCC) [K65.1] 01/07/2021 Type 2 diabetes mellitus without complication, *12/15/2022 Encounter Status:Closed by AMNA VELAZQUEZ on 01/24/24 [facility] 01-17-2024 CNPN Telephone (FAMPWS) ANNABELLA CHAPA ([id number]) 1980 M Date Time Provider Department 01/17/24 EDWIN KUMAR FAMPWS During your visit today, we recorded the following information about you: Nicole Ferreira MA 01/17/2024 8:36 AM Signed Pt sent in [employer] message that he needs a new PA done for Ozempic. Please see message from pt. LUI Hart Janice, LPN 01/17/2024 9:10 AM Signed Electronic PA completed. Bev Pascual LPN 01/17/2024 2:14 PM Signed This has been approved. Prior authorization approved Payer: [employer] [id number] Note from payer: Your PA request has been approved. Additional information will be provided in the approval communication. (Message 1145) Approval Details Authorized from January 17, 2024 to January 16, 2027 Electronic appeal: Not supported View History Notes Time User Attachment Attachment received from payer. 01/17/2024 2:11 PM Cchs, Rx Priorautvitaly In Document Pharmacy Benefits Open Encounter ANNABELLA CHAPA BB CDH-N [id number] ([employer]) Covered: Retail, Mail Order, Specialty Unknown: Long-Term Care BIN: [id number] : 1980 Group ID: [id number] PCN: [id number] Legal sex: M Group name: [facility] Address: [address] [place] [id number] Bev Pascual LPN 01/17/2024 2:14 PM Signed Pt notified via my chart. Allergies As of Date: 01/17/2024 Noted Allergy Reaction CIPROFLOXACIN 03/02/2017 5 - Intolerance Comments: Hallucination Date Reviewed: 11/29/2023 Reviewed by: Genie Shaw RN - Fully Assessed Reason for Visit: Insurance Authorization [[id number]] Cmt: Ozempic Prescriptions as of 01/17/2024 - semaglutide (OZEMPIC) 1 mg/dose (4 mg/3 mL) pen Inject 1 mg subcutaneously one time a week. - losartan (COZAAR) 100 mg tablet Take 1 tablet by mouth once daily. - cyanocobalamin 1,000 mcg/mL INJECT 1 ML INTRAMUSCULARLY ONCE EVERY MONTH. - budesonide, enteric coated (ENTOCORT EC) 3 mg 24 hr capsule take 3 capsules by mouth every day - carvedilol (COREG) 25 mg tablet Take 1 tablet by mouth two times a day. - dilTIAZem CR (TIADYLT ER) 360 mg 24 hr capsule Take 1 capsule by mouth once daily. - spironolactone (ALDACTONE) 25 mg tablet Take 1 tablet by mouth once daily. - blood sugar diagnostic (BLOOD GLUCOSE TEST) test strip Test blood sugar(s) 1 times daily. Dx: Type 2 DM - Controlled E11.9 Insulin: No - Lancets lancets Test blood sugar(s) 1 times daily. Dx: Type 2 DM - Controlled E11.9 Insulin: No - ergocalciferol 50,000 unit capsule (VITAMIN D2, DRISDOL) Take 1 capsule by mouth one time a week. Wednesday - vedolizumab (ENTYVIO) 300 mg injection 300mg Intravenous every 8 weeks. - omeprazole (PRILOSEC) 40 mg capsule Take 1 capsule by mouth once daily as needed. - docusate sodium (COLACE ORAL) Take by mouth once daily. Problem List As Of Date 01/17/2024 Noted Resolved Crohn's disease of both small and large intesti*03/02/2017 Generalized abdominal pain [R10.84] 04/14/2017 06/30/2018 Tachycardia [R00.0] 02/21/2018 Hypertension, essential [I10] Calculus of kidney [N20.0] 11/23/2017 Vitamin B12 deficiency [E53.8] 06/30/2018 Vitamin D deficiency [E55.9] 06/30/2018 Obesity, Class II, BMI 35-39.9 [E66.9] 06/30/2018 Iron deficiency anemia due to chronic blood los*10/08/2018 Anemia [D64.9] 10/14/2018 Other constipation [K59.09] 10/14/2018 Chronic right-sided low back pain without sciat*06/06/2020 Arthralgia [M25.50] 09/20/2020 Well adult exam [Z00.00] 09/20/2020 Elevated alanine aminotransferase (ALT) level [*11/13/2020 Exacerbation of Crohn's disease, without compli*01/02/2021 Intra-abdominal abscess (HCC) [K65.1] 01/07/2021 Type 2 diabetes mellitus without complication, *12/15/2022 Encounter Status:Closed by BEV PASCUAL on 01/17/24 Normal [facility] Flexible sigmoidoscopy study on 07-19-2023 [facility] XR Chest PA and Lateralon IMPRESSION: No acute radiographic abnormality. Activities Coordinator: AZALEA Transcribe Date/Time: Apr 30 2023 4:32P Dictated by : PAUL SANFORD MD This examination was interpreted and the report reviewed and electronically signed by: PAUL SANFORD MD on Apr 30 2023 4:33PM [facility] DIVISION OF RADIOLOGY * * *Final Report* * * DATE OF EXAM: Apr 30 2023 4:30PM WOX [id number] - XR CHEST 2V FRONTAL/LAT / PROCEDURE REASON: Acute cough * * * * Physician Interpretation * * * * EXAMINATION: CHEST RADIOGRAPH (2 VIEW FRONTAL & LATERAL) CLINICAL HISTORY: Acute cough MQ: XC2_6 EXAM DATE/TIME: 04/30/2023 4:30 PM COMPARISON: Chest x-ray 05/03/2019 RESULT: Lines, tubes, and devices: None. Lungs and pleura: No consolidation. No lung mass. No pleural effusion. No pneumothorax. Cardiomediastinal silhouette: Normal cardiomediastinal silhouette. Bones and soft tissues: Unremarkable. DIVISION OF RADIOLOGY Provider, Stevo Skinnerandreas [facility] - 04/30/2023 * * *Final Report* * * DATE OF EXAM: Apr 30 2023 4:30PM WOX [id number] - XR CHEST 2V FRONTAL/LAT / PROCEDURE REASON: Acute cough * * * * Physician Interpretation * * * * EXAMINATION: CHEST RADIOGRAPH (2 VIEW FRONTAL & LATERAL) CLINICAL HISTORY: Acute cough MQ: XC2_6 EXAM DATE/TIME: 04/30/2023 4:30 PM COMPARISON: Chest x-ray 05/03/2019 RESULT: Lines, tubes, and devices: None. Lungs and pleura: No consolidation. No lung mass. No pleural effusion. No pneumothorax. Cardiomediastinal silhouette: Normal cardiomediastinal silhouette. Bones and soft tissues: Unremarkable. IMPRESSION IMPRESSION: No acute radiographic abnormality. Activities Coordinator: AZALEA Transcribe Date/Time: Apr 30 2023 4:32P Dictated by : PAUL SANFORD MD This examination was interpreted and the report reviewed and electronically signed by: PAUL SANFORD MD on Apr 30 2023 4:33PM EST [facility] Radiology Study observation (narrative) [facility] XR Chest PA and LateralOrder ed By: Cc Provider on 04-30-2023 [facility] Virtual Office Visiton 07-28 Virtual Office Visit [facility] [address] [place] [address] OFFICE VISIT Date of Service: 07/28/21 MR#: [id number] Acct: [id number] Patient: ANNABELLA CHAPA Rep #: [id number] 2 : 1980 Provider: LULI-William olmos Age/Sex: 40/M [facility] Status: Signed Intake Intake Visit Reasons: LUI ESTEBAN Allergies ciprofloxacin [From Cipro] Adverse Reaction (Verified 07/28/21 10:24) Other [facility] Medical History (Updated 07/28/21 @ 10:28 by Megan Barbosa NP, [employer]-C) Anemia ankle fx Crohns disease HTN (hypertension) Surgical History History of hemicolectomy Family History Father Heart disease Social History Smoking Status: Never smoker HPI HPI Details: Patient was informed that this visit will be billed to patient. This visit was conducted during COVID-19 pandemic. Details: Patient was informed that this visit will be billed to patient. This visit was conducted during COVID-19 pandemic. Statement read to the patient: This telehealth visit is being offered during our stay at home measures in response to the pandemic. It is subject to an office visit charge. There are also charges for the monoclonal antibody infusion which may or may not be covered by your insurance. The patient consents to continue. The FDA has authorized the emergency use of monoclonal antibody treatment (bamlanivimab/etesevim ab or casirivimab/imdevimab) for mild to moderate COVID-19 in adults and pediatric patients with positive results of direct SARS-Cov-2 viral testing ages 12 and older, at least 40 kg, who are at high risk for progressing to severe COVID-19 and or hospitalization. The significant known and potential risks (allergic reactions, worsening of symptoms after treatment, or side effects from injection including brief pain, bleeding, bruising of the skin, soreness, swelling, possible infection at the infusion site) and benefits (decrease chance of progression to severe COVID-19) of a monoclonal antibody infusion, and the extent to which such potential risks and benefits are unknown. Note that worsening symptoms after treatment may occur but it is unknown whether these symptoms are related to treatment or are due to the progression of COVID-19. Worsening symptoms may include: fever, difficulty breathing, rapid or slow heart rate, tiredness, weakness or confusion. If these symptoms occur, patients are encouraged to seek immediate medical attention. These treatments are still being studied, all possible side effects may not be listed or known at this time. Patients treated with monoclonal antibody infusion should continue to self-isolate and use infection control measures (such as wear mask, isolate, social distance, avoid sharing personal items, clean and disinfect high touch surfaces, and frequent handwashing) according to the CDC guidelines. The fact sheet will be provided prior to the administration of the medication. Oral medications have received authorization from the FDA to treat [id number] COVID-19 in patients at high risk for progression to severe COVID-19. These medications may not be appropriate for all patients and available drug supply may be limited. However, these oral medications may be more effective against the omicron variant. The patient had the option to refuse or accept treatment with monoclonal antibody therapy. The patient was informed that the number of people treated with monoclonal antibody therapy at this time is small. Due to the changes in the virus that causes COVID-19, some monoclonal antibody treatments may not be effective for all forms of the virus (known as variants). This includes the omicron variant. The patient stated understanding of this information communicated and wished to proceed with monoclonal antibody infusion therapy. COVID + Test Date: 07/25/21 @ [facility], Gabi Lurison Sx Onset: 07/24/21 Sx: Cough, sinus and chest congestion, sore throat, SOB, diarrhea O2: NO Age: 40 yrs Ht: 5'8 Wt: 230 BMI: 35 Vaccine: Moderna x3 Qualifier: Crohn's disease with Immunosuppressive drug use (Entocort and Entyvio) , HTN, BMI ROS ENT ENT: Positive for sore throat Resp Respiratory: Positive for cough, chest congestion and shortness of breath Gastro GI: Positive for diarrhea Exam Const General: cooperative and no acute distress Resp Effort Inspection: normal respiratory effort and able to speak in complete sentences Neuro General: patient alert, patient awake and patient oriented x3 Cognition: normal cognition Speech: speech normal Psych Mental Status: mental status grossly normal Mood: congruent mood Attitude: cooperative Thought Process: normal Thought Content: normal Judgment: judgment good Details: Details:: Exam was limited (more content not included)... Normal [facility] CBC W/Diff, Automatedon 12-2 Absolute Lymph 1.39 X10 3/uL Normal 0.83-4.51 [facility] Comment on above: Performed By: #### L 500.4050, L504.2610, L100.0100, L503.6030, L503.6550 #### [facility] [address] [place], [address] Absolute Neut 11.1 X10 3/uL High 2.0-7.7 [facility] Comment on above: Performed By: #### L 500.4050, L504.2610, L100.0100, L503.6030, L503.6550 #### [facility] [address] [place], [address] Basophils/100 WBC (Bld) 0.2 % Normal 0-1 [facility] Comment on above: Performed By: #### L 500.4050, L504.2610, L100.0100, L503.6030, L503.6550 #### [facility] [address] [place], [address] Eosinophils/100 WBC (Bld) 0.4 % Normal 0-5 [facility] Comment on above: Performed By: #### L 500.4050, L504.2610, L100.0100, L503.6030, L503.6550 #### [facility] [address] [place], [address] Erythrocyte distribution width (RBC) [Ratio] 15.9 % High 11.6-14.6 [facility] Comment on above: Performed By: #### L 500.4050, L504.2610, L100.0100, L503.6030, L503.6550 #### [facility] [address] [place], [address] Hematocrit (Bld) [Volume fraction] 43.3 % Normal 40-54 [facility] Comment on above: Performed By: #### L 500.4050, L504.2610, L100.0100, L503.6030, L503.6550 #### [facility] [address] [place], [address] Hemoglobin (Bld) [Mass/Vol] 14.2 g/dL Normal 13.0-16.5 [facility] Comment on above: Performed By: #### L 500.4050, L504.2610, L100.0100, L503.6030, L503.6550 #### [facility] [address] [place], [address] IG% 0.700 Normal 0.0-0.9 [facility] Comment on above: Result Comment: IG% - Immature Granulocytes (promyelocytes, myelocytes and metamyelocytes) > 1% indicates that a LEFT SHIFT is Present. Performed By: #### L 500.4050, L504.2610, L100.0100, L503.6030, L503.6550 #### [facility] [address] [place], [address] Lymphocytes/100 WBC (Bld) 10.2 % Low 19-41 [facility] Comment on above: Performed By: #### L 500.4050, L504.2610, L100.0100, L503.6030, L503.6550 #### [facility] [address] [place], [address] MCH (RBC) [Entitic mass] 26.5 pg Low 27.0-32.0 [facility] Comment on above: Performed By: #### L 500.4050, L504.2610, L100.0100, L503.6030, L503.6550 #### [facility] [address] [place], [address] MCHC (RBC) [Mass/Vol] 32.8 g/dL Normal 32-36 [facility] Comment on above: Performed By: #### L 500.4050, L504.2610, L100.0100, L503.6030, L503.6550 #### [facility] [address] [place], [address] MCV (RBC) [Entitic vol] 80.9 fL Normal 80-94 [facility] Comment on above: Performed By: #### L 500.4050, L504.2610, L100.0100, L503.6030, L503.6550 #### [facility] [address] [place], [address] Monocytes/100 WBC (Bld) 7.4 % Normal 0-10 [facility] Comment on above: Performed By: #### L 500.4050, L504.2610, L100.0100, L503.6030, L503.6550 #### [facility] [address] [place], [address] Neutrophils/100 WBC (Bld) 81.1 % High 47-70 [facility] Comment on above: Performed By: #### L 500.4050, L504.2610, L100.0100, L503.6030, L503.6550 #### [facility] [address] [place], [address] Nucleated RBC (Bld) [#/Vol] 0 10*3/uL Normal 0-5 [facility] Comment on above: Performed By: #### L 500.4050, L504.2610, L100.0100, L503.6030, L503.6550 #### [facility] [address] [place], [address] Platelet mean volume (Bld) [Entitic vol] 9.4 fL Normal 6.2-12.0 [facility] Comment on above: Performed By: #### L 500.4050, L504.2610, L100.0100, L503.6030, L503.6550 #### [facility] [address] [place], [address] Platelets (Bld) [#/Vol] 207 10*3/uL Normal 150-450 [facility] Comment on above: Performed By: #### L 500.4050, L504.2610, L100.0100, L503.6030, L503.6550 #### [facility] [address] [place], [address] RBC (Bld) [#/Vol] 5.35 10*6/uL Normal 4.6-6.2 [facility] Comment on above: Performed By: #### L 500.4050, L504.2610, L100.0100, L503.6030, L503.6550 #### [facility] [address] [place], [address] RDW SD 46.8 fl High 35.1-43.9 [facility] Comment on above: Performed By: #### L 500.4050, L504.2610, L100.0100, L503.6030, L503.6550 #### [facility] [address] [place], [address] WBC (Bld) [#/Vol] 13.7 10*3/uL High 4.4-11.0 [facility] Comment on above: Performed By: #### L 500.4050, L504.2610, L100.0100, L503.6030, L503.6550 #### [facility] [address] [place], [address] Comprehensive Metabolic Prof [facility] 05-26-2021 Albumin [Mass/Vol] 3.5 g/dL Normal 3.2-5.0 [facility] Comment on above: Order Comment: 1 Performed By: #### L 500.4050, L504.2610, L100.0100, L503.6030, L503.6550 #### [facility] [address] [place], [address] Albumin/Globulin [Mass ratio] 1.1 {ratio} Normal 0.9-2.4 [facility] Comment on above: Order Comment: 1 Performed By: #### L 500.4050, L504.2610, L100.0100, L503.6030, L503.6550 #### [facility] [address] [place], [address] ALK P 79 U/L Normal 45-117 [facility] Comment on above: Order Comment: 1 Performed By: #### L 500.4050, L504.2610, L100.0100, L503.6030, L503.6550 #### [facility] [address] [place], [address] ALT [Catalytic activity/Vol] 39 U/L Normal 16-61 [facility] Comment on above: Order Comment: 1 Performed By: #### L 500.4050, L504.2610, L100.0100, L503.6030, L503.6550 #### [facility] [address] [place], [address] AST [Catalytic activity/Vol] 10 U/L Low 15-37 [facility] Comment on above: Order Comment: 1 Performed By: #### L 500.4050, L504.2610, L100.0100, L503.6030, L503.6550 #### [facility] [address] [place], [address] Bilirubin [Mass/Vol] 0.60 mg/dL Normal 0.20-1.00 [facility] Comment on above: Order Comment: 1 Result Comment: For patients on eltrombopag therapy, use of Dimension [place] TBIL is not recommended. Performed By: #### L 500.4050, L504.2610, L100.0100, L503.6030, L503.6550 #### [facility] [address] [place], [address] BUN/CRE 17.2 RATIO Normal 10-20 [facility] Comment on above: Order Comment: 1 Performed By: #### L 500.4050, L504.2610, L100.0100, L503.6030, L503.6550 #### [facility] [address] [place], [address] CA,Total 9.1 mg/dL Normal 8.5-10.1 [facility] Comment on above: Order Comment: 1 Performed By: #### L 500.4050, L504.2610, L100.0100, L503.6030, L503.6550 #### [facility] [address] [place], [address] Chloride [Moles/Vol] 110 mmol/L High 98-107 [facility] Comment on above: Order Comment: 1 Performed By: #### L 500.4050, L504.2610, L100.0100, L503.6030, L503.6550 #### [facility] [address] [place], [address] CO2 [Moles/Vol] 25.0 mmol/L Normal 21.0-32.0 [facility] Comment on above: Order Comment: 1 Performed By: #### L 500.4050, L504.2610, L100.0100, L503.6030, L503.6550 #### [facility] [address] [place], [address] Creatinine [Mass/Vol] 1.22 mg/dL Normal 0.70-1.30 [facility] Comment on above: Order Comment: 1 Result Comment: The validity of the calculated GFR GFRAA in patients over 70 years has not been determined. Clinical correlation is essential. Performed By: #### L 500.4050, L504.2610, L100.0100, L503.6030, L503.6550 #### [facility] [address] [place], [address] ECRCL 77.09 ml/min Normal [facility] Comment on above: Order Comment: 1 Performed By: #### L 500.4050, L504.2610, L100.0100, L503.6030, L503.6550 #### [facility] [address] [place], [address] EST GFR - AA 84 mL/min Normal >60 [facility] Comment on above: Order Comment: 1 Result Comment: Afri can [place] GFR Calc Performed By: #### L 500.4050, L504.2610, L100.0100, L503.6030, L503.6550 #### [facility] [address] [place], [address] GAP 9 Normal 5-15 [facility] Comment on above: Order Comment: 1 Performed By: #### L 500.4050, L504.2610, L100.0100, L503.6030, L503.6550 #### [facility] [address] [place], [address] GFR/1.73 sq M.predicted among non-blacks MDRD (S/P/Bld) [Vol rate/Area] 69 mL/min/{1.73_m2} Normal >60 [facility] Comment on above: Order Comment: 1 Result Comment: Non- GFR Calc Performed By: #### L 500.4050, L504.2610, L100.0100, L503.6030, L503.6550 #### [facility] [address] [place], [address] Globulin (S) [Mass/Vol] 3.3 g/dL Normal 2.2-4.2 [facility] Comment on above: Order Comment: 1 Performed By: #### L 500.4050, L504.2610, L100.0100, L503.6030, L503.6550 #### [facility] [address] [place], [address] Glucose [Mass/Vol] 112 mg/dL High 74-106 [facility] Comment on above: Order Comment: 1 Result Comment: Fast ing Glucose result from 100 to 125 mg/dL suggests IMPAIRED HOMEOSTASIS per A.D.A. criteria. Please note revised GLUCOSE reference range effective 2017. Performed By: #### L 500.4050, L504.2610, L100.0100, L503.6030, L503.6550 #### [facility] [address] [place], [address] Potassium [Moles/Vol] 3.7 mmol/L Normal 3.5-5.1 [facility] Comment on above: Order Comment: 1 Performed By: #### L 500.4050, L504.2610, L100.0100, L503.6030, L503.6550 #### [facility] [address] [place], [address] Sodium [Moles/Vol] 144 mmol/L Normal 136-145 [facility] Comment on above: Order Comment: 1 Performed By: #### L 500.4050, L504.2610, L100.0100, L503.6030, L503.6550 #### [facility] [address] [place], [address] T PROT 6.8 g/dL Normal 6.4-8.2 [facility] Comment on above: Order Comment: 1 Performed By: #### L 500.4050, L504.2610, L100.0100, L503.6030, L503.6550 #### [facility] [address] [place], [address] Urea nitrogen [Mass/Vol] 21 mg/dL High 7-18 [facility] Comment on above: Order Comment: 1 Performed By: #### L 500.4050, L504.2610, L100.0100, L503.6030, L503.6550 #### [facility] [address] [place], [address] Ferritinon 05-26-2021 Ferritin [Mass/Vol] 42 ng/mL Normal 26-388 [facility] Comment on above: Order Comment: 1 Performed By: #### L 500.4050, L504.2610, L100.0100, L503.6030, L503.6550 #### [facility] [address] [place], [address] Iron+Iron Binding Capacityon 05-26-2021 Iron [Mass/Vol] 48 ug/dL Low 65-175 [facility] Comment on above: Order Comment: 1 Performed By: #### L 500.4050, L504.2610, L100.0100, L503.6030, L503.6550 #### [facility] [address] [place], [address] IRON SATURATION 12.5 Low 15.0-55.0 [facility] Comment on above: Order Comment: 1 Performed By: #### L 500.4050, L504.2610, L100.0100, L503.6030, L503.6550 #### [facility] [address] [place], [address] TIBC 383 ug/dL Normal 250-450 [facility] Comment on above: Order Comment: 1 Performed By: #### L 500.4050, L504.2610, L100.0100, L503.6030, L503.6550 #### [facility] [address] [place], [address] LDHon 05-26-2021 LDH 276 U/L High 87-241 [facility] Comment on above: Order Comment: 1 Performed By: #### L 500.4050, L504.2610, L100.0100, L503.6030, L503.6550 #### [facility] [address] [place], [address] BRIEF OP NOTon 01-20-2021 BRIEF OP NOT HNO ID: [id number] Author: Rocael Jung MD Service: Radiology Author Type: Physician Type: Brief Op Note Filed: 01/20/2021 2:40 PM Note Text: INTERVENTIONAL RADIOLOGY POST PROCEDURE NOTE DATE: 01/20/21 NAME: Annabella Chapa LOG ID: [id number] Pre-Procedure Diagnosis: RLQ abscess Internal Combustion Engineer: Surgeon(s) and Role: * Rocael Jung MD - Primary Procedure: Abscessogram and drain removal Anesthesia: None Findings: Cavity decompressed and no fistula to bowel identified Estimated Blood Loss: 0 ml Specimen: None Complications: None Post-Op/Post-Procedure Diagnosis: RLQ abscess resolved [facility] IR INJ FOR ASSESSMENT ALEXIA Mar 01-20-2021 IR INJ FOR ASSESSMENT ALEXIA KELLOGG * * *Final Report* * * DATE OF EXAM: Jan 20 2021 2:47PM [facility] 6487 - IR INJ FOR ASSESSMENT ALEXIA KELLOGG / PROCEDURE REASON: abscess * * * * Physician Interpretation * * * * EXAM TITLE: ABSCESSOGRAM WITH REMOVAL OF DRAINAGE CATHETER DATE: January 20, 2021 at 2:18 PM COMPARISON: Previous abscessogram is from January 14, 2021 CLINICAL INDICATION/HISTORY: The patient is a 40-year-old male with history of Crohn's disease with right lower quadrant abscess which was drained percutaneously which had a small fistula to the bowel on previous abscessogram. The patient states that the drainage from the catheter has nearly completely ceased.. TECHNIQUE: Under fluoroscopic guidance contrast was injected through the abscess drain and after spot imaging as much of the contrast was removed as was possible. The catheter was cut and removed and a pressure dressing was applied to the skin entrance site. 0 minutes and 42 seconds of fluoroscopy time was utilized for the procedure. 2 cc of Omnipaque 300 was utilized for the entire study. One spot film in one set of cine fluoroscopic images were saved. Fluoroscopy Radiation dose: Integrated dose-area product (DAP) for this visit = 13 mGy*cm. FINDINGS: The abscess cavity is contracted around the pigtail of the catheter. All of the contrast can be reaspirated. There is no evidence of any communication with bowel at this time. IMPRESSION: Successful decompression of abscess cavity. Technically successful removal of drainage catheter. Activities Coordinator: PSCB Transcribe Date/Time: Jan 20 2021 3:11P Dictated by : ROCAEL JUNG MD This examination was interpreted and the report reviewed and electronically signed by: ROCAEL JUNG MD on Jan 20 2021 3:13PM EST [id number] [facility] BRIEF OP NOTon 01-14-2021 BRIEF OP NOT HNO ID: [id number] Author: Pam Holley MD Service: Radiology Author Type: Physician Type: Brief Op Note Filed: 01/14/2021 1:34 PM Note Text: S/p abscessogram for RLQ abdominal wall drain, fistulous communication with bowel loops noted as well as persistent abscess cavity. Will keep drain in place, plan for repeat abscessogram in one week. Pam Holley MD Normal [facility] IR INJ FOR ASSESSMENT ALEXIA Mar 01-14-2021 IR INJ FOR ASSESSMENT ALEXIA CATH * * *Final Report* * * DATE OF EXAM: Jan 14 2021 1:38PM [facility] 6487 - IR INJ FOR ASSESSMENT ALEXIA CATH / PROCEDURE REASON: abscess * * * * Physician Interpretation * * * * PROCEDURE: FLUOROSCOPIC GUIDED ABSCESSOGRAM DATE: 01/14/2021 1:38 PM INDICATION: Crohn's disease. Right upper quadrant abscess, status post image guided abscess drainage catheter placement performed on 01/06/2021. ENCOUNTER: Initial COMPARISON: Images from ultrasound-guided percutaneous drainage catheter placement performed on 01/06/2021 and MR enterography dated 01/01/2021. TECHNIQUE: Patient was brought to the angiography suite and placed in supine position on the angiography table. The indwelling percutaneous drain was injected with water-soluble contrast and fluoroscopic images were saved and placed in the PACS system. No immediate complication was noted. Fluoro time: 0:36 min:sec Plane A, Air Kerma: 20.0 mGy 87 fluoroscopic images were obtained and placed in the PACS system. FINDINGS: Indwelling percutaneous drainage catheter unchanged in position. Persistent abscess cavity. Fistulous communication with the cecum. IMPRESSION: Persistent abscess cavity. Fistulous communication of the abscess cavity with the cecum. Plan for repeat abscessogram in one week. May require Tisseel. Activities Coordinator: PSCB Transcribe Date/Time: Jan 14 2021 6:13P Dictated by : PAM HOLLEY MD This examination was interpreted and the report reviewed and electronically signed by: PAM HOLLEY MD on Jan 14 2021 6:16PM EST [id number] [facility] Basic metabolic 2000 panelon 01-07-2021 Anion gap [Moles/Vol] 9 mmol/L Normal 9-18 [facility] Comment on above: Order Comment: Speci men Type: BLOOD SPECIMEN Performed By: #### 2 4321-2 #### [facility] CLIA [id number] [address] Calcium [Mass/Vol] 8.6 mg/dL Normal 8.5-10.2 [facility] Comment on above: Order Comment: Speci men Type: BLOOD SPECIMEN Performed By: #### 2 4321-2 #### [facility] CLIA [id number] [address] Chloride [Moles/Vol] 107 mmol/L High 97-105 [facility] Comment on above: Order Comment: Speci men Type: BLOOD SPECIMEN Performed By: #### 2 4321-2 #### [facility] CLIA [id number] [address] CO2 [Moles/Vol] 26 mmol/L Normal 22-30 [facility] Comment on above: Order Comment: Speci men Type: BLOOD SPECIMEN Performed By: #### 2 4321-2 #### [facility] CLIA [id number] [address] [facility] Creatinine [Mass/Vol] 1.07 mg/dL Normal 0.73-1.22 [facility] Comment on above: Order Comment: Speci men Type: BLOOD SPECIMEN Performed By: #### 2 4321-2 #### [facility] CLIA [id number] [address] [place] GFR/1.73 sq M.predicted MDRD (S/P/Bld) [Vol rate/Area] mL/min/{1.73_m2} [facility] Comment on above: Order Comment: Speci men Type: BLOOD SPECIMEN Result Comment: >60 eGFR (Estimated GFR) Units of measure: mL/min/1.73 [...] accurately reflect actual GFR. Performed By: #### 2 4321-2 #### [facility] CLIA [id number] [address] [place] [address] [place] Glucose [Mass/Vol] 184 mg/dL High 74-99 [facility] Comment on above: Order Comment: Speci men Type: BLOOD SPECIMEN Result Comment: The [place] Diabetes Association (ADA) provides guidance for cutoff values for fasting glucose and random glucose. The ADA defines fasting as no caloric intake for at least 8 hours. Fasting plasma glucose results between 100 to 125 [...] Standards of Medical Care in Diabetes 2016, [place] [employer]. Diabetes Care. 2016.39(Suppl 1). Performed By: #### 2 4321-2 #### [facility] CLIA [id number] [address] [place] [address] [place] Potassium [Moles/Vol] 3.6 mmol/L Low 3.7-5.1 [facility] Comment on above: Order Comment: Speci men Type: BLOOD SPECIMEN Performed By: #### 2 4321-2 #### [facility] CLIA [id number] [address] [place] [address] [place] Sodium [Moles/Vol] 142 mmol/L Normal 136-144 [facility] Comment on above: Order Comment: Speci men Type: BLOOD SPECIMEN Performed By: #### 2 4321-2 #### [facility] CLIA [id number] [address] [place] [address] [place] Urea nitrogen [Mass/Vol] 29 mg/dL High 9-24 [facility] Comment on above: Order Comment: Speci men Type: BLOOD SPECIMEN Performed By: #### 2 4321-2 #### [facility] [facility] CLIA [id number] [address] CBC W Auto Differential pane l (Bld)on 01-07-2021 Basophils (Bld) [#/Vol] 10*3/uL Normal <0.11 [facility] Comment on above: Order Comment: Speci men Type: BLOOD SPECIMEN Performed By: #### 1 988-5, #### [facility] CLIA [id number] [address] Basophils/100 WBC (Bld) 0.1 % Normal [facility] Comment on above: Order Comment: Speci men Type: BLOOD SPECIMEN Performed By: #### 1 988-5, #### [facility] CLIA [id number] [address] Differential cell count method Nom (Bld) Auto Normal [facility] Comment on above: Order Comment: Speci men Type: BLOOD SPECIMEN Performed By: #### 1 988-, #### [facility] CLIA [id number] [address] Eosinophils (Bld) [#/Vol] 10*3/uL Normal <0.46 [facility] Comment on above: Order Comment: Speci men Type: BLOOD SPECIMEN Performed By: #### 1 988-, #### [facility] CLIA [id number] [address] Eosinophils/100 WBC (Bld) 0.0 % Normal [facility] Comment on above: Order Comment: Speci men Type: BLOOD SPECIMEN Performed By: #### 1 988-5, #### [facility] CLIA [id number] [address] Erythrocyte distribution width (RBC) [Ratio] 17.5 % High 11.5-15.0 [facility] Comment on above: Order Comment: Speci men Type: BLOOD SPECIMEN Performed By: #### 1 988-5, #### [facility] CLIA [id number] [address] Hematocrit (Bld) [Volume fraction] 37.0 % Low 39.0-51.0 [facility] Comment on above: Order Comment: Speci men Type: BLOOD SPECIMEN Performed By: #### 1 988-5, #### [facility] CLIA [id number] [address] Hemoglobin (Bld) [Mass/Vol] 12.3 g/dL Low 13.0-17.0 [facility] Comment on above: Order Comment: Speci men Type: BLOOD SPECIMEN Performed By: #### 1 988-, #### [facility] CLIA [id number] [address] IMMATURE GRAN % 1.4 % Normal [facility] Comment on above: Order Comment: Speci men Type: BLOOD SPECIMEN Performed By: #### 1 988-5, #### [facility] CLIA [id number] [address] IMMATURE GRAN ABS 0.15 k/uL High <0.10 [facility] Comment on above: Order Comment: Speci men Type: BLOOD SPECIMEN Performed By: #### 1 988-, #### [facility] CLIA [id number] [address] Lymphocytes (Bld) [#/Vol] 0.22 10*3/uL Low 1.00-4.00 [facility] Comment on above: Order Comment: Speci men Type: BLOOD SPECIMEN Performed By: #### 1 988-5, #### [facility] CLIA [id number] [address] Lymphocytes/100 WBC (Bld) 2.1 % Normal [facility] Comment on above: Order Comment: Speci men Type: BLOOD SPECIMEN Performed By: #### 1 988, #### [facility] CLIA [id number] [address] MCH (RBC) [Entitic mass] 26.7 pg Normal 26.0-34.0 [facility] Comment on above: Order Comment: Speci men Type: BLOOD SPECIMEN Performed By: #### 1 , #### [facility] CLIA [id number] [address] MCHC (RBC) [Mass/Vol] 33.2 g/dL Normal 30.5-36.0 [facility] Comment on above: Order Comment: Speci men Type: BLOOD SPECIMEN Performed By: #### 1 9801-02, #### [facility] CLIA [id number] [address] MCV (RBC) [Entitic vol] 80.3 fL Normal 80.0-100.0 [facility] Comment on above: Order Comment: Speci men Type: BLOOD SPECIMEN Performed By: #### 1 , #### [facility] CLIA [id number] [address] Monocytes (Bld) [#/Vol] 0.51 10*3/uL Normal <0.87 [facility] Comment on above: Order Comment: Speci men Type: BLOOD SPECIMEN Performed By: #### 1 988-, #### [facility] CLIA [id number] [address] Monocytes/100 WBC (Bld) 4.9 % Normal [facility] Comment on above: Order Comment: Speci men Type: BLOOD SPECIMEN Performed By: #### 1 988, #### [facility] CLIA [id number] [address] Neutrophils (Bld) [#/Vol] 9.47 10*3/uL High 1.45-7.50 [facility] Comment on above: Order Comment: Speci men Type: BLOOD SPECIMEN Performed By: #### 1 988-5, #### [facility] CLIA [id number] [address] Neutrophils/100 WBC (Bld) 91.5 % Normal [facility] Comment on above: Order Comment: Speci men Type: BLOOD SPECIMEN Performed By: #### 1 988-5, #### [facility] CLIA [id number] [address] Nucleated RBC (Bld) [#/Vol] 0.02 10*3/uL High <0.01 [facility] Comment on above: Order Comment: Speci men Type: BLOOD SPECIMEN Performed By: #### 1 988-5, #### [facility] CLIA [id number] [address] Nucleated RBC/100 WBC (Bld) [Ratio] 0.2 /100 WBC High 0.0 [facility] Comment on above: Order Comment: Speci men Type: BLOOD SPECIMEN Performed By: #### 1 988-5, #### [facility] CLIA [id number] [address] Platelet mean volume (Bld) [Entitic vol] 9.1 fL Normal 9.0-12.7 [facility] Comment on above: Order Comment: Speci men Type: BLOOD SPECIMEN Performed By: #### 1 988-5, #### [facility] CLIA [id number] [address] Platelets (Bld) [#/Vol] 146 10*3/uL Low 150-400 [facility] Comment on above: Order Comment: Speci men Type: BLOOD SPECIMEN Performed By: #### 1 988-5, #### [facility] CLIA [id number] [address] [facility] RBC (Bld) [#/Vol] 4.61 10*6/uL Normal 4.20-6.00 [facility] Comment on above: Order Comment: Speci men Type: BLOOD SPECIMEN Performed By: #### 1 988-5, 99758-4 #### [facility] CLIA [id number] [address] WBC (Bld) [#/Vol] 10.36 10*3/uL Normal 3.70-11.00 [facility] Comment on above: Order Comment: Speci men Type: BLOOD SPECIMEN Performed By: #### 1 988-5, 22463-7 #### [facility] CLIA [id number] [address] CNDSon 01-07-2021 CNDS HNO ID: [id number] Author: Litzy Jones DO Service: Hospital Medicine Author Type: Physician Type: Discharge Summary Filed: 01/08/2021 2:28 PM Note Text: DISCHARGE SUMMARY PATIENT NAME: Annabella Chapa Code Status: Not on file Highest Readmission Risk Score: 16 The 30 day readmissions risk score is derived from an internally validated risk model which evaluates patient level characteristics, utilization history, medication orders and lab results up until the day of discharge. Patients with a score of 40 or above are considered highest risk for readmission. Specific patient level drivers will be listed at the bottom of the summary. Admission Information Admission Information ADMIT DATE: 01/02/2021 DISCHARGE DATE: 01/07/21 MY DOCTORS AND MEDICAL TEAM: My Main Hospital Doctor: Litzy Jones DO Primary Care Provider: dEwin Kumar DO My Medical Team Members: Treatment Team: Attending Provider: Litzy Jones DO Consulting: Sami Huston MD Primary Service: Stefan Wolf Consulting: Lyly Smith MD Consulting: Venkat Silva MD Consulting: Stefan Infectious Disease Consulting: Gerald Aquino MD MY CONDITION AT DISCHARGE: Improved REASON I WAS IN THE HOSPITAL: Crohn's exacerbation SUMMARY OF WHAT HAPPENED WHILE I WAS IN THE HOSPITAL: 40 yo M with PMH Crohn's disease, HTN here with Crohn's exacerbation with stricture and enlarging abd abscess. Started on high dose IV steroids and IV zosyn. Seen by GI and surgery without acute surgical intervention. GI recommended IR drainage of abscess which was done on 01/06. Culture prelim with lactose office manager receptionist GNB. Surgery offered elective surgery as an outpatient and patient prefers to pursue this after he has a baby as his is . Plan for steroid taper until he sees Dr. Sanchez and 3 weeks of PO flagyl and cefdinir per ID recs. Follow up with IR in 1 week for drain. Flushes given and instructions provided by RN. His blood pressure was also noted to be uncontrolled while admitted so I advised that he follow-up with his primary care for further management since they had already been titrating this together. OTHER PROBLEMS/DIAGNOSIS: Principal Problem: Exacerbation of Crohn's disease, without complications (HCC) Active Problems: Hypertension, essential Obesity, Class II, BMI 35-39.9 Anemia Intra-abdominal abscess (HCC) Resolved Problems: * No resolved hospital problems. * OPERATIONS PERFORMED WHILE IN THE HOSPITAL: IR drainage of abscess IMPORTANT TEST/PROCEDURES: Abscess drainage TEST RESULTS NOT AVAILABLE AT THIS TIME: Final culture of abscess Discharge Disposition Discharge Disposition: Home With Self Care Activity When You Leave the Hospital Resume pre-hospital activity Diet Instructions Resume your pre-hospital diet Call Your Doctor If There is severe pain at the operative site Your temperature is greater than 101F Follow Up Appointments Follow-Up Appointment With: GI When: In 2 weeks Patient/Parents to call for appointment?: Yes Follow-Up Appointment With: IR When: In 1 week Patient/Parents to call for appointment?: Yes Treatment Team: Primary Service: Stefan Wolf Consulting: Lyly Smith MD Consulting: Venkat Silva MD Consulting: Stefan Nuñez Infectious Disease Consulting: Gerald Aquino MD FOLLOW-UP APPOINTMENTS ALREADY SCHEDULED WITH A [facility] PROVIDER: Future Appointments Date Time Provider Department Center 01/09/2021 10:45 AM MD RICK Leos 01/14/2021 10:30 AM Venkat Silva MD [facility] 02/10/2021 3:30 PM TREATMENT RM [facility] Amor 03/17/2021 3:45 PM [facility] [place] ALLERGIES Allergen Reactions - Ciprofloxacin Intolerance Hallucination DISCHARGE MEDICATION: Discharge Medication List as of 01/07/2021 1:00 PM START taking these medications cefdinir (OMNICEF) 300 mg capsule Take 1 capsule by mouth twice daily for 21 days. Normal, Disp-42 capsule, R-0 Deliver to bedside CONTINUE these medications which have CHANGED metroNIDAZOLE (FLAGYL) 500 mg tablet Take 1 tablet by mouth three times daily for 21 days. Normal, Disp-63 tablet, R-0 Deliver to bedside predniSONE (DELTASONE) 20 mg tablet Take 2 tablets by mouth (40mg) daily for 1 week, THEN take 1.5 tablets by mouth (30mg) daily for 1 week, and THEN take 1 tablet by mouth (20mg) until you see Dr. Sanchez Normal, Disp-30 tablet, R-2 CONTINUE these medications which have NOT CHANGED losartan (COZAAR) 100 mg tablet Take 1 tablet by mouth once daily. Normal, Disp-90 tablet, R-2, Long-term Dx: 1. Essential hypertension metoprolol succinate ER (TOPROL XL) 50 mg 24 hr tablet Take 1 tablet by mouth once daily. Normal, Disp-30 tablet, R-1, Long-term Dx: 1. Essential hypertension 2. Tachycardia vedolizumab (ENTYVIO) 300 mg injection 300mg Intravenous every 8 weeks. Normal, Disp-1 Each, (more content not included)... Normal [facility] Romero 01-07-2021 QUANGN Telephone (GILLIAN) ANNABELLA CHAPA ([id number]) 1980 M Date Time Provider Department 01/07/21 VENKAT SILVA During your visit today, we recorded the following information about you: Venkat Silva MD 01/07/2021 5:59 PM Signed Please set up virtual visit appointment with me on 01/14 @ [facility]. Thanks Venkat Silva MD August MARY Levine 01/08/2021 8:38 AM Signed Patient is scheduled Allergies As of Date: 01/07/2021 Noted Allergy Reaction CIPROFLOXACIN 03/02/2017 5 - Intolerance Comments: Hallucination Date Reviewed: 01/06/2021 Reviewed by: Sherine Solorio RN - Fully Assessed Reason for Visit: Appointment [186] Prescriptions as of 01/08/2021 - cefdinir (OMNICEF) 300 mg capsule Take 1 capsule by mouth twice daily for 21 days. - metroNIDAZOLE (FLAGYL) 500 mg tablet Take 1 tablet by mouth three times daily for 21 days. - predniSONE (DELTASONE) 20 mg tablet Take 2 tablets by mouth (40mg) daily for 1 week, THEN take 1.5 tablets by mouth (30mg) daily for 1 week, and THEN take 1 tablet by mouth (20mg) until you see Dr. Sanchez - losartan (COZAAR) 100 mg tablet Take 1 tablet by mouth once daily. - metoprolol succinate ER (TOPROL XL) 50 mg 24 hr tablet Take 1 tablet by mouth once daily. - vedolizumab (ENTYVIO) 300 mg injection 300mg Intravenous every 8 weeks. - glucagon (GLUCAGEN) 1 mg/mL injection 1 mg one time only for 1 dose. For MRI Enterography, Inject 1 mg intravenously, as directed. Slow push at the appropriate time during MRI Scan - budesonide, enteric coated (ENTOCORT EC) 3 mg 24 hr capsule Take 3 capsules by mouth once daily. - dilTIAZem CD (CARTIA XT) 300 mg 24 hr capsule Take 1 capsule by mouth once daily. - ergocalciferol 50,000 unit capsule (VITAMIN D2, DRISDOL) TAKE 1 CAPSULE BY MOUTH ONE TIME A WEEK. - cyanocobalamin 1,000 mcg/mL INJECT 1 ML INTRAMUSCULARLY ONCE EVERY MONTH. - omeprazole (PRILOSEC) 40 mg capsule Take 1 capsule by mouth once daily as needed. - docusate sodium (COLACE ORAL) Take by mouth once daily. Facility-Administered Medications as of 01/08/2021 - perflutren lipid microspheres 1.3 mL in NaCl (PF) 0.9% 10 mL injection (DEFINITY) - sodium chloride 0.9 % (flush) 10 mL (BD POSIFLUSH) Problem List As Of Date 01/07/2021 Noted Resolved Crohn's disease of small intestine with complic*03/02/2017 Generalized abdominal pain [R10.84] 04/14/2017 06/30/2018 Tachycardia [R00.0] 02/21/2018 Hypertension, essential [I10] Calculus of kidney [N20.0] 11/23/2017 Vitamin B12 deficiency [E53.8] 06/30/2018 Vitamin D deficiency [E55.9] 06/30/2018 Obesity, Class II, BMI 35-39.9 [E66.9] 06/30/2018 Iron deficiency anemia due to chronic blood los*10/08/2018 Anemia [D64.9] 10/14/2018 Other constipation [K59.09] 10/14/2018 Chronic right-sided low back pain without sciat*06/06/2020 Arthralgia [M25.50] 09/20/2020 Well adult exam [Z00.00] 09/20/2020 Elevated alanine aminotransferase (ALT) level [*11/13/2020 Exacerbation of Crohn's disease, without compli*01/02/2021 Intra-abdominal abscess (HCC) [K65.1] 01/07/2021 Encounter Status:Closed by August on 01/08/21 [facility] CONSULT PROGon 01-07-2021 CONSULT PROG HNO ID: [id number] Author: Abigail Haider PA-C Service: Gastroenterology Author Type: Physician Security Installer Type: Consult Progress Note Filed: 01/07/2021 11:17 AM Note Text: GI CONSULT PROGRESS NOTE SERVICE DATE: 01/07/2021 SERVICE TIME: 11:03 AM CONSULTING SERVICE: Gastroenterology Subjective INTERVAL HISTORY: GI following for crohns exacerbation with penetrating disease and abscess collection. Patient seen and examined. He had drain placed in RUQ yesterday per IR. Is feeling well this morning, slight pain at drain site but otherwise no complaints. He is tolerating meals without nausea/vomiting and having BM's. MEDICATIONS: Current Facility-Administered Medications Medication Dose Route Frequency - ergocalciferol (vitamin D2) 50,000 Units cap(s) (DRISDOL) 50,000 Units ORAL 1/WK - perflutren lipid microspheres 1.3 mL in NaCl (PF) 0.9% 10 mL injection (DEFINITY) INTRAVENOUS DIRECTED PRN - sodium chloride 0.9 % (flush) 10 mL (BD POSIFLUSH) 10 mL INTRAVENOUS DIRECTED PRN - dilTIAZem CD 300 mg cap(s) (CARDIZEM CD, CARTIA XT) 300 mg ORAL DAILY - losartan 100 mg tab(s) (COZAAR) 100 mg ORAL DAILY - NaCl 0.9% iv flush bag 20 mL INTRAVENOUS PRN - ondansetron 4 mg tab(s) (ZOFRAN) 4 mg ORAL q 6 H PRN Or - ondansetron (PF) 4 mg injection (ZOFRAN) 4 mg INTRAVENOUS q 6 H PRN - acetaminophen 650 mg tab(s) (TYLENOL) 650 mg ORAL q 6 H PRN - heparin 5,000 Units injection 5,000 Units SUBCUTANEOUS q 12 H - sodium chloride 0.9 % (flush) 3-5 mL (BD POSIFLUSH) 3-5 mL INTRAVENOUS q 12 H - guaiFENesin 600 mg ER tab(s) (MUCINEX) 600 mg ORAL q 12 H PRN - docusate sodium 100 mg cap(s) (COLACE) 100 mg ORAL BID PRN - aluminum-magnesium hydroxide-simethicone 200-200-20 mg/5 mL 30 mL (MAALOX,MYLANTA,MAG-AL PLUS) 30 mL ORAL q 6 H PRN - melatonin 3 mg tab(s) 3 mg ORAL HS PRN - polyvinyl alcohol-povidone 1.4-0.6 % 1 Drop (REFRESH) 1 Drop BOTH EYES PRN - sodium chloride 0.65 % 2 Trezevant (AYR, OCEAN) 2 Trezevant EACH NOSTRIL PRN - Lip Protectant with Sunscreen SPF 15 1 application Stick (Blistex) 1 application TOPICAL PRN - saliva substitute combo no.9 15 mL (BIOTENE mouthwash) 15 mL MUCOUS MEMBRANE (TOPICAL MOUTH AND THROAT) TID PRN - benzocaine-menthol 1 Lozenge (CEPACOL) 1 Lozenge MUCOUS MEMBRANE (TOPICAL MOUTH AND THROAT) q 2 H PRN - lactated ringers iv infusion 75 mL/hr INTRAVENOUS CONTINUOUS - metoprolol succinate ER 50 mg tab(s) (TOPROL XL) 50 mg ORAL AT BEDTIME - methylPREDNISolone sod succinate(PF) 60 mg injection (SOLU-Medrol) 60 mg INTRAVENOUS q 6 H - piperacillin-tazobacta m iv piggyback 3.375 g in dextrose (iso-osmotic) 50 mL (ZOSYN) 3.375 g INTRAVENOUS q 6 H - sodium chloride 0.9 % (flush) 10 mL (BD POSIFLUSH) 10 mL OTHER q 12 H Objective PHYSICAL EXAM: VITALS:BP 151/93 Pulse 60 Temp 36.8 ?C (98.2 ?F) (Oral) Resp 20 Ht 172.7 cm (5' 8) Wt 115.6 kg (254 lb 13.6 oz) SpO2 96% BMI 38.75 kg/m? ABDOMEN: soft, mild tenderness to palpation right side of abdomen, TIMUR drain in place with 10cc of bloody dark output in drain bulb DATA: Diagnostic tests reviewed for today's visit: Most recent labs and imaging results. CBC, Coags, BMP, Mg, Phos Recent Labs 01/06/21 2329 01/06/21 0036 01/05/21 0029 WBC 10.36 10.75 14.22* HB 12.3* 11.8* 12.9* HCT 37.0* 35.7* 39.8 PLT 146* 142* 173 NA 142 140 140 K 3.6* 3.9 3.9 CHLOR 107* 106* 105 CO2 26 27 26 BUN 29* 20 17 CREAT 1.07 1.04 1.06 GLUC 184* 141* 136* CA 8.6 8.8 9.4 CSF AND Dilantin Liver Function, Amylase, AND Lipase Cardiac Enzymes ABGs Impression/Recommendat ions Impression: 1. 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 They would like patient off steroids and entyvio if possible prior to surgery - Will need follow up MRE in the next week. Follow up with Dr Sanchez SIGNATURE: Abigail Haider PA-C PATIENT NAME: Annabella Chapa DATE: January 07, 2021 TIME: 11:03 AM PAGER/CONTACT #: see intranet [facility] BRIEF OP NOTon 01-06-2021 BRIEF OP NOT HNO ID: [id number] Author: Nina Chavira MD Service: Interventional Radiology Author Type: Physician Type: Brief Op Note Filed: 01/06/2021 11:08 AM Note Text: BRIEF OPERATIVE / PROCEDURE NOTE LOG ID: [id number] SURGERY/PROCEDURE DATE: 01/06/2021 INCISION/PROCEDURE START TIME: 10:51 AM INCISION CLOSE/PROCEDURE END TIME: 11:02 AM SURGEON(S)/PROCEDURALI ST(S) AND GAUGE CONTROLLER(S): Surgeon(s) and Role: * Nina Chavira MD - Primary No Additional Staff SURGERY/PROCEDURE(S): RUQ drainage catheter placement ANESTHESIA: Local FINDINGS: Successful placement of 10 F drain ESTIMATED BLOOD LOSS: Minimal SPECIMENS: Sent to the lab COMPLICATIONS: None PRE-OP/PRE-PROCEDURE DIAGNOSIS: RUQ abscess POST-OP/POST-PROCEDURE DIAGNOSIS: Same as Preop SIGNATURE: Nina Chavira MD PATIENT NAME: Annabella Chapa DATE: January 06, 2021 TIME: 11:07 AM [facility] Bacteria Fld Culton 01-07-20 Bacteria identified Cx Nom (Body fld) ORGANISM ID: 1 Moderate Escherichia coli ORGANISM ID: 2 Rare Streptococcus anginosus group ORGANISM ID: 3 Rare Bonnie albicans GRAM STAIN: No organisms seen Many Polymorphonuclear leukocytes ORGANISM ID: 1 (ESCHERICHIA COLI) -- ANTIBIOTIC INTERPRETATION BONNIE STATUS REFERENCE RANGE -- Ampicillin R >16 F Susceptible <=8 , Intermediate >8 , Resistant >16 Ampicillin/Sulbact I 16 F Aztreonam S <=2 F Susceptible <=4 , Intermediate >4 , Resistant >=16 Cefazolin S 2 F Susceptible <=2 , Intermediate >2 , Resistant >=8 Cefepime S <=1 F Susceptible <=2 , Susceptible-Dose Dependent >2 , Resistant >=16 Ceftriaxone S <=1 F Susceptible <=1 , Intermediate >1 , Resistant >=4 Ciprofloxacin S <=0.25 F Susceptible <=0.25 , Intermediate >.25 , Resistant >.5 Ertapenem S <=0.25 F Susceptible <=0.5 , Intermediate >.5 , Resistant >1 Gentamicin S <=2 F Susceptible <=4 , Intermediate >4 , Resistant >8 Meropenem S <=0.5 F Susceptible <=1 , Intermediate >1 , Resistant >2 Piperacillin/Tazobac S <=2 F Trimeth sulfameth S <=0.5 F Abnormal [facility] Comment on above: Performed By: #### 6 11-4 ####[facility] [id number] [address] OF [facility] Basic metabolic 2000 panelon 01-06-2021 Anion gap [Moles/Vol] 7 mmol/L Low 9-18 [facility] Comment on above: Order Comment: Speci men Type: BLOOD SPECIMEN Performed By: #### 1 988-5, 77255-7 #### [facility] CLIA [id number] [address] Calcium [Mass/Vol] 8.8 mg/dL Normal 8.5-10.2 [facility] Comment on above: Order Comment: Speci men Type: BLOOD SPECIMEN Performed By: #### 1 988-5, #### [facility] CLIA [id number] [address] [place] Chloride [Moles/Vol] 106 mmol/L High 97-105 [facility] Comment on above: Order Comment: Speci men Type: BLOOD SPECIMEN Performed By: #### 1 988-5, #### [facility] CLIA [id number] [address] [place] CO2 [Moles/Vol] 27 mmol/L Normal 22-30 [facility] Comment on above: Order Comment: Speci men Type: BLOOD SPECIMEN Performed By: #### 1 988-5, #### [facility] CLIA [id number] [address] Creatinine [Mass/Vol] 1.04 mg/dL Normal 0.73-1.22 [facility] Comment on above: Order Comment: Speci men Type: BLOOD SPECIMEN Performed By: #### 1 988-5, #### [facility] CLIA [id number] [address] GFR/1.73 sq M.predicted MDRD (S/P/Bld) [Vol rate/Area] mL/min/{1.73_m2} Normal [facility] Comment on above: Order Comment: Speci men Type: BLOOD SPECIMEN Result Comment: >60 eGFR (Estimated GFR) Units of measure: mL/min/1.73 [...] accurately reflect actual GFR. Performed By: #### 1 988-5, 99321-3 #### [facility] CLIA [id number] [address] Glucose [Mass/Vol] 141 mg/dL High 74-99 [facility] Comment on above: Order Comment: Speci men Type: BLOOD SPECIMEN Result Comment: The [place] [employer] (ADA) provides guidance for cutoff values for fasting glucose and random glucose. The ADA defines fasting as no caloric intake for at least 8 hours. Fasting plasma glucose results between 100 to 125 [...] Standards of Medical Care in Diabetes 2016, [place] [employer]. Diabetes Care. 2016.39(Suppl 1). Performed By: #### 1 988-5, 22150-5 #### [facility] CLIA [id number] [address] Potassium [Moles/Vol] 3.9 mmol/L Normal 3.7-5.1 [facility] Comment on above: Order Comment: Speci men Type: BLOOD SPECIMEN Performed By: #### 1 988-5, #### [facility] CLIA [id number] [address] Sodium [Moles/Vol] 140 mmol/L Normal 136-144 [facility] Comment on above: Order Comment: Speci men Type: BLOOD SPECIMEN Performed By: #### 1 988-5, 44465-1 #### [facility] CLIA [id number] [address] Urea nitrogen [Mass/Vol] 20 mg/dL Normal 9-24 [facility] Comment on above: Order Comment: Speci men Type: BLOOD SPECIMEN Performed By: #### 1 988-5, 11179-0 #### [facility] CLIA [id number] [address] OF [facility] CBC W Auto Differential pane l (Bld)on 01-06-2021 Basophils (Bld) [#/Vol] 10*3/uL Normal <0.11 [facility] Comment on above: Order Comment: Speci men Type: BLOOD SPECIMEN Performed By: #### 1 988-5, #### [facility] CLIA [id number] [address] Basophils/100 WBC (Bld) 0.1 % Normal [facility] Comment on above: Order Comment: Speci men Type: BLOOD SPECIMEN Performed By: #### 1 8, #### [facility] CLIA [id number] [address] Differential cell count method Nom (Bld) Auto Normal [facility] Comment on above: Order Comment: Speci men Type: BLOOD SPECIMEN Performed By: #### 1 988, #### [facility] CLIA [id number] [address] Eosinophils (Bld) [#/Vol] 10*3/uL Normal <0.46 [facility] Comment on above: Order Comment: Speci men Type: BLOOD SPECIMEN Performed By: #### 1 988, #### [facility] CLIA [id number] [address] Eosinophils/100 WBC (Bld) 0.0 % Normal [facility] Comment on above: Order Comment: Speci men Type: BLOOD SPECIMEN Performed By: #### 1 988-, #### [facility] CLIA [id number] [address] Erythrocyte distribution width (RBC) [Ratio] 17.7 % High 11.5-15.0 [facility] Comment on above: Order Comment: Speci men Type: BLOOD SPECIMEN Performed By: #### 1 988-, #### [facility] CLIA [id number] [address] Hematocrit (Bld) [Volume fraction] 35.7 % Low 39.0-51.0 [facility] Comment on above: Order Comment: Speci men Type: BLOOD SPECIMEN Performed By: #### 1 988, #### [facility] CLIA [id number] [address] Hemoglobin (Bld) [Mass/Vol] 11.8 g/dL Low 13.0-17.0 [facility] Comment on above: Order Comment: Speci men Type: BLOOD SPECIMEN Performed By: #### 1 , #### [facility] CLIA [id number] [address] IMMATURE GRAN % 1.0 % Normal [facility] Comment on above: Order Comment: Speci men Type: BLOOD SPECIMEN Performed By: #### 1 988, #### [facility] CLIA [id number] [address] IMMATURE GRAN ABS 0.11 k/uL High <0.10 [facility] Comment on above: Order Comment: Speci men Type: BLOOD SPECIMEN Performed By: #### 1 9801-02, #### [facility] CLIA [id number] [address] Lymphocytes (Bld) [#/Vol] 0.34 10*3/uL Low 1.00-4.00 [facility] Comment on above: Order Comment: Speci men Type: BLOOD SPECIMEN Performed By: #### 1 988-, #### [facility] CLIA [id number] [address] Lymphocytes/100 WBC (Bld) 3.2 % Normal [facility] Comment on above: Order Comment: Speci men Type: BLOOD SPECIMEN Performed By: #### 1 988, #### [facility] CLIA [id number] [address] MCH (RBC) [Entitic mass] 26.9 pg Normal 26.0-34.0 [facility] Comment on above: Order Comment: Speci men Type: BLOOD SPECIMEN Performed By: #### 1 988-5, #### [facility] CLIA [id number] [address] MCHC (RBC) [Mass/Vol] 33.1 g/dL Normal 30.5-36.0 [facility] Comment on above: Order Comment: Speci men Type: BLOOD SPECIMEN Performed By: #### 1 988-, #### [facility] CLIA [id number] [address] MCV (RBC) [Entitic vol] 81.5 fL Normal 80.0-100.0 [facility] Comment on above: Order Comment: Speci men Type: BLOOD SPECIMEN Performed By: #### 1 988, #### [facility] CLIA [id number] [address] Monocytes (Bld) [#/Vol] 0.21 10*3/uL Normal <0.87 [facility] Comment on above: Order Comment: Speci men Type: BLOOD SPECIMEN Performed By: #### 1 988-, #### [facility] CLIA [id number] [address] Monocytes/100 WBC (Bld) 2.0 % Normal [facility] Comment on above: Order Comment: Speci men Type: BLOOD SPECIMEN Performed By: #### 1 988-, #### [facility] CLIA [id number] [address] Neutrophils (Bld) [#/Vol] 10.08 10*3/uL High 1.45-7.50 [facility] Comment on above: Order Comment: Speci men Type: BLOOD SPECIMEN Performed By: #### 1 988, #### [facility] CLIA [id number] [address] Neutrophils/100 WBC (Bld) 93.7 % Normal [facility] Comment on above: Order Comment: Speci men Type: BLOOD SPECIMEN Performed By: #### 1 988-, #### [facility] CLIA [id number] [address] Nucleated RBC (Bld) [#/Vol] 10*3/uL Normal <0.01 [facility] Comment on above: Order Comment: Speci men Type: BLOOD SPECIMEN Performed By: #### 1 988, #### [facility] CLIA [id number] [address] Nucleated RBC/100 WBC (Bld) [Ratio] 0.0 /100 WBC Normal 0.0 [facility] Comment on above: Order Comment: Speci men Type: BLOOD SPECIMEN Performed By: #### 1 988, #### [facility] CLIA [id number] [address] Platelet mean volume (Bld) [Entitic vol] 9.3 fL Normal 9.0-12.7 [facility] Comment on above: Order Comment: Speci men Type: BLOOD SPECIMEN Performed By: #### 1 988-, #### [facility] CLIA [id number] [address] Platelets (Bld) [#/Vol] 142 10*3/uL Low 150-400 [facility] Comment on above: Order Comment: Speci men Type: BLOOD SPECIMEN Performed By: #### 1 988-5, #### [facility] CLIA [id number] [address] [place] RBC (Bld) [#/Vol] 4.38 10*6/uL Normal 4.20-6.00 [facility] Comment on above: Order Comment: Speci men Type: BLOOD SPECIMEN Performed By: #### 1 988-5, 30137-2 #### [facility] CLIA [id number] [address] WBC (Bld) [#/Vol] 10.75 10*3/uL Normal 3.70-11.00 [facility] Comment on above: Order Comment: Speci men Type: BLOOD SPECIMEN Performed By: #### 1 988-5, 62548-8 #### [facility] CLIA [id number] [address] CONSULT PROGon 01-06-2021 CONSULT PROG HNO ID: [id number] Author: Venkat Silva MD Service: Infectious Disease Author Type: Physician Type: Consult Progress Note Filed: 01/06/2021 7:08 PM Note Text: PROGRESS NOTE INFECTIOUS DISEASE BRIEF SUMMARY: 40 year old male History of Crohn's, hypertension, presented to [facility] 01/02/2021 for Direct mission for MRI finding. MRI enterography 01/01/2021 showed persistent enteroenteric fistula and enlarging abscess deep to the right abdominal wall musculature. ASSESSMENT: 1. Abdominal wall abscess s/p IR-drain 01/06 2. Crohn's w entero-enteric fistula Estimated Creatinine Clearance: 115.2 mL/min (based on SCr of 1.04 mg/dL). RECOMMENDATIONS: - cont Zosyn - await body fuild cx - when ready for dc, change zosyn to augmentin 875mg PO BID, we will monitor cx outpatient to see if CoPAT is needed. Patient voiced understanding Subjective SUBJECTIVE: Interval Events: 01/06 no major event, s/p IR-drain Active Antimicrobials (From admission, onward) Start Stop 01/04/21 0600 [JUL Hold due to Transfer] piperacillin-tazobacta m iv piggyback 3.375 g in dextrose (iso-osmotic) 50 mL (ZOSYN) 3.375 g, INTRAVENOUS, EVERY 6 HOURS (MAR Hold due to Transfer since 01/06/2021 at 1024.Hold Reason: Hold Unreviewed Transfer Orders.) -- Immunosuppressant: None Objective Medications: Current Facility-Administered Medications Medication Dose Route Frequency - [MAR Hold due to Transfer] ergocalciferol (vitamin D2) 50,000 Units cap(s) (DRISDOL) 50,000 Units ORAL 1/WK - [MAR Hold due to Transfer] perflutren lipid microspheres 1.3 mL in NaCl (PF) 0.9% 10 mL injection (DEFINITY) INTRAVENOUS DIRECTED PRN - [MAR Hold due to Transfer] sodium chloride 0.9 % (flush) 10 mL (BD POSIFLUSH) 10 mL INTRAVENOUS DIRECTED PRN - [MAR Hold due to Transfer] dilTIAZem CD 300 mg cap(s) (CARDIZEM CD, CARTIA XT) 300 mg ORAL DAILY - [MAR Hold due to Transfer] losartan 100 mg tab(s) (COZAAR) 100 mg ORAL DAILY - [MAR Hold due to Transfer] NaCl 0.9% iv flush bag 20 mL INTRAVENOUS PRN - [MAR Hold due to Transfer] ondansetron 4 mg tab(s) (ZOFRAN) 4 mg ORAL q 6 H PRN Or - [MAR Hold due to Transfer] ondansetron (PF) 4 mg injection (ZOFRAN) 4 mg INTRAVENOUS q 6 H PRN - [MAR Hold due to Transfer] acetaminophen 650 mg tab(s) (TYLENOL) 650 mg ORAL q 6 H PRN - [MAR Hold due to Transfer] heparin 5,000 Units injection 5,000 Units SUBCUTANEOUS q 12 H - [MAR Hold due to Transfer] sodium chloride 0.9 % (flush) 3-5 mL (BD POSIFLUSH) 3-5 mL INTRAVENOUS q 12 H - [MAR Hold due to Transfer] guaiFENesin 600 mg ER tab(s) (MUCINEX) 600 mg ORAL q 12 H PRN - [MAR Hold due to Transfer] docusate sodium 100 mg cap(s) (COLACE) 100 mg ORAL BID PRN - [MAR Hold due to Transfer] aluminum-magnesium hydroxide-simethicone 200-200-20 mg/5 mL 30 mL (MAALOX,MYLANTA,MAG-AL PLUS) 30 mL ORAL q 6 H PRN - [MAR Hold due to Transfer] melatonin 3 mg tab(s) 3 mg ORAL HS PRN - [MAR Hold due to Transfer] polyvinyl alcohol-povidone 1.4-0.6 % 1 Drop (REFRESH) 1 Drop BOTH EYES PRN - [MAR Hold due to Transfer] sodium chloride 0.65 % 2 Trezevant (AYR, OCEAN) 2 Trezevant EACH NOSTRIL PRN - [MAR Hold due to Transfer] Lip Protectant with Sunscreen SPF 15 1 application Stick (Blistex) 1 application TOPICAL PRN - [MAR Hold due to Transfer] saliva substitute combo no.9 15 mL (BIOTENE mouthwash) 15 mL MUCOUS MEMBRANE (TOPICAL MOUTH AND THROAT) TID PRN - [MAR Hold due to Transfer] benzocaine-menthol 1 Lozenge (CEPACOL) 1 Lozenge MUCOUS MEMBRANE (TOPICAL MOUTH AND THROAT) q 2 H PRN - [MAR Hold due to Transfer] lactated ringers iv infusion 75 mL/hr INTRAVENOUS CONTINUOUS - [JUL Hold due to Transfer] metoprolol succinate ER 50 mg tab(s) (TOPROL XL) 50 mg ORAL AT BEDTIME - [JUL Hold due to Transfer] methylPREDNISolone sod succinate(PF) 60 mg injection (SOLU-Medrol) 60 mg INTRAVENOUS q 6 H - [MAR Hold due to Transfer] piperacillin-tazobacta m iv piggyback 3.375 g in dextrose (iso-osmotic) 50 mL (ZOSYN) 3.375 g INTRAVENOUS q 6 H OBJECTIVE: Physical Exam: BP 183/93 Pulse 64 Temp (Src) 98.4 (Oral) Resp 18 Ht 5' 8 (1.73m) Wt 253 lb 14.4 oz (115.2kg) SpO2 96% BMI 38.61 kg/(m2). O2 Therapy: Room Air Lines, Drains, and Airways Line Peripheral 01/02/212030 Short Left Wrist 20 Gauge 3 days GENERAL APPEARANCE: Comfortable SKIN: No rashes or lesions LUNGS: Normal breath sounds, clear to auscultation, no wheezes, or crackles HEART:RRR, no murmurs ABDOMEN: Soft, non tender, BS+ TIMUR+ EXTREMITIES: No edema or tenderness NEURO: Awake, alert, no involuntary motions Lab data: WBC (k/uL) Date Value 01/06/2021 10.75 01/05/2021 14.22 01/04/2021 15.76 01/03/2021 8.18 01/02/2021 9.80 11/04/2020 13.43 05/06/2020 11.13 09/01/2019 9.35 04/26/2019 10.29 04/07/2019 11.72 Platelet Count (k/uL) Date Value 01/06/2021 142 01/05/2021 173 01/04/2021 168 01/03/2021 151 01/02/2021 179 11/04/2020 230 05/06/2020 245 08/31/ (more content not included)... Normal [facility] CONSULT PROG HNO ID: [id number] Author: Tyshawn Larkin DO Service: General Surgery Author Type: Resident Type: Consult Progress Note Filed: 01/06/2021 7:55 AM Note Text: Attestation signed by Gerald Aquino MD at 01/06/2021 3:36 PM I discussed his case with Dr. Aquino, who agrees with the need for resection. He had a drain placed today. In the time between now and surgery I would like to work on getting him off of steroids and ideally off of Entyvio as well. We will have to clarify the timing of the surgery with his 's . I personally saw and examined the patient on 01/06/2021. I reviewed the resident?s note. I agree with the resident?s assessment and plan unless otherwise noted Gerald Aquino MD 3:36 PM 01/06/21 Please Note: This office note has been created using [employer], a speech recognition software program, and may contain errors including punctuation, grammar, spelling, gender, and inappropriate words or phrases that pertain to the sytem. [facility] Progress Note SERVICE DATE: January 06, 2021 [facility] Service Pager: For questions or concerns Mon-Fri 6a-5p please page [phone]. After 5pm and on Weekends and Holidays, please page [phone] if in ICU or [phone] if on RNF. SUBJECTIVE: Patient states he is doing well. Denies any abdominal pain, No N/V. He is NPO for his IR drain. Denies any drainage from his abdominal wall. Tolerating diet DIET NPO OBJECTIVE: Vitals: Temp (24hrs), Av.8 ?C (98.3 ?F), Min:36.8 ?C (98.2 ?F), Max:36.9 ?C (98.4 ?F) BP 160/87 Pulse 60 Temp 36.8 ?C (98.2 ?F) (Oral) Resp 16 Ht 172.7 cm (5' 8) Wt 115.2 kg (253 lb 14.4 oz) SpO2 96% BMI 38.61 kg/m? O2 Therapy: Room Air IANDO: Date 01/05/21699 - 01/06/21 0659 01/06/21 07 - 01/07/21 0659 Shift 4651-7483 9159-6491 1727-8583 24 Hour Total 4530-9557 3400-4815 3835-9414 24 Hour Total INTAKE Shift Total OUTPUT Urine Urine Not Saved. 1 x 1 x Shift Total Weight (kg) 114.2 114.2 115.2 115.2 115.2 115.2 115.2 115.2 MEDICATIONS Current Facility-Administered Medications Medication Dose Route Frequency - piperacillin-tazobacta m iv piggyback 3.375 g in dextrose (iso-osmotic) 50 mL (ZOSYN) 3.375 g INTRAVENOUS q 6 H - ergocalciferol (vitamin D2) 50,000 Units cap(s) (DRISDOL) 50,000 Units ORAL 1/WK - perflutren lipid microspheres 1.3 mL in NaCl (PF) 0.9% 10 mL injection (DEFINITY) INTRAVENOUS DIRECTED PRN - sodium chloride 0.9 % (flush) 10 mL (BD POSIFLUSH) 10 mL INTRAVENOUS DIRECTED PRN - dilTIAZem CD 300 mg cap(s) (CARDIZEM CD, CARTIA XT) 300 mg ORAL DAILY - losartan 100 mg tab(s) (COZAAR) 100 mg ORAL DAILY - NaCl 0.9% iv flush bag 20 mL INTRAVENOUS PRN - ondansetron 4 mg tab(s) (ZOFRAN) 4 mg ORAL q 6 H PRN Or - ondansetron (PF) 4 mg injection (ZOFRAN) 4 mg INTRAVENOUS q 6 H PRN - acetaminophen 650 mg tab(s) (TYLENOL) 650 mg ORAL q 6 H PRN - heparin 5,000 Units injection 5,000 Units SUBCUTANEOUS q 12 H - sodium chloride 0.9 % (flush) 3-5 mL (BD POSIFLUSH) 3-5 mL INTRAVENOUS q 12 H - guaiFENesin 600 mg ER tab(s) (MUCINEX) 600 mg ORAL q 12 H PRN - docusate sodium 100 mg cap(s) (COLACE) 100 mg ORAL BID PRN - aluminum-magnesium hydroxide-simethicone 200-200-20 mg/5 mL 30 mL (MAALOX,MYLANTA,MAG-AL PLUS) 30 mL ORAL q 6 H PRN - melatonin 3 mg tab(s) 3 mg ORAL HS PRN - polyvinyl alcohol-povidone 1.4-0.6 % 1 Drop (REFRESH) 1 Drop BOTH EYES PRN - sodium chloride 0.65 % 2 Trezevant (AYR, OCEAN) 2 Trezevant EACH NOSTRIL PRN - Lip Protectant with Sunscreen SPF 15 1 application Stick (Blistex) 1 application TOPICAL PRN - saliva substitute combo no.9 15 mL (BIOTENE mouthwash) 15 mL MUCOUS MEMBRANE (TOPICAL MOUTH AND THROAT) TID PRN - benzocaine-menthol 1 Lozenge (CEPACOL) 1 Lozenge MUCOUS MEMBRANE (TOPICAL MOUTH AND THROAT) q 2 H PRN - lactated ringers iv infusion 75 mL/hr INTRAVENOUS CONTINUOUS - metoprolol succinate ER 50 mg tab(s) (TOPROL XL) 50 mg ORAL AT BEDTIME - methylPREDNISolone sod succinate(PF) 60 mg injection (SOLU-Medrol) 60 mg INTRAVENOUS q 6 H Labs: Recent Labs 01/06/21 0036 01/05/21 0029 01/04/21 0613 01/04/21 0613 NA 140 140 < > 139 K 3.9 3.9 < > 4.0 CHLOR 106* 105 < > 105 CO2 27 26 < > 25 BUN 20 17 < > 16 CREAT 1.04 1.06 < > 1.09 GLUC 141* 136* < > 130* ANION 7* 9 < > 9 CA 8.8 9.4 < > 9.4 ALB -- -- -- 3.7* AST -- -- -- 15 ALT -- -- -- 26 ALKPHOS -- -- -- 65 TBILI -- -- -- 0.7 WBC 10.75 14.22* < > 15.76* HB 11.8* 12.9* < > 12.5* HCT 35.7* 39.8 < > 37.7* PLT 142* 173 < > 168 < > = values in this interval not displayed. Exam: GENERAL: resting comfortably, in no acute distress HEENT: normocephalic, atraumatic, EOMI NECK: trachea midline, no JVD LUNGS: Unlabored breathing (more content not included)... [facility] HISTORY PHYSICALon HISTORY PHYSICAL HNO ID: [id number] Author: Nina Chavira MD Service: Interventional Radiology Author Type: Physician Type: HANDP Filed: 01/06/2021 10:34 AM Note Text: UPDATED HISTORY AND PHYSICAL EXAMINATION SERVICE DATE: 01/06/2021 SERVICE TIME: 10:34 AM PHYSICAL EXAM MUST BE COMPLETED ON ADMISSION The History and Physical (completed in the past 30 days) has been reviewed and the patient has been examined. The contents accurately reflect the patient's condition with the following additions or revisions since the HANDP was completed. Examination indicates no changes. This HANDP can be found in the Electronic Medical Record . SIGNATURE: Nina Chavira MD PATIENT NAME: Annabella Chapa DATE: January 06, 2021 TIME: 10:34 AM [facility] NURSING PROGon 01-06-2021 NURSING PROG HNO ID: [id number] Author: Sherine Solorio RN Service: ? Author Type: Registered Nurse Type: Nursing Progress Note Filed: 01/06/2021 8:06 PM Note Text: Pt BP 182/107 automatic rechecked manual 162/91. Otherwise stable vitals, no pt complaint of headache or chest discomfort. Sound notified. [facility] US DRAIN PLACE SFT TISS FLUI D BIon 01-06-[address] SFT TISS FLUID BI * * *Final Report* * * DATE OF EXAM: Jan 06 2021 11:03AM [facility] 1126 - US DRAIN PLACE SFT TISS FLUID BI / PROCEDURE REASON: Abscess * * * * Physician Interpretation * * * * PROCEDURE PERFORMED: ULTRASOUND GUIDED DRAIN PLACEMENT INDICATION FOR PROCEDURE: The patient is a 40 years old Male who presents with a right upper quadrant abscess. STAFF RADIOLOGIST: Nina Chavira MD GAUGE CONTROLLER(S): None CONSENT: The risks, benefits, treatment options, potential complications and personnel involved were discussed with the patient. All questions were answered and consent was obtained. The patient indicated he was willing to proceed. The staff physician personally verified consent. TIME OUT: A time out was performed immediately prior to procedure start with the nursing, anesthesia and interventional team, correctly identifying the patient name, date of , procedure, anatomy (including marking of site and side), patient position, procedure consent form, relevant diagnostic and radiology test results, antibiotic administration, safety precautions, and procedure-specific equipment needs. RESULT: PROCEDURE: After performing the time out, the right upper quadrant was prepped and draped in the usual sterile fashion. Under ultrasound guidance, an 18 gauge trochar needle was advanced into the collection. Then, a guide wire was inserted and the tract was serially dilated to 8 Panamanian. A 10 Panamanian locking pigtail catheter was then inserted. Its position was confirmed and then it was locked. A sample was aspirated. The catheter was sutured to the skin with monofilament suture and attached to a J-P bulb drain. The procedure was performed by the: attending radiologist, without an bioinformatics assistant. The attending radiologist performed the following procedural activities: Entire procedure ANESTHESIA/SEDATION: Conscious sedation was achieved using Versed and Fentanyl intravenously. Local anesthesia was achieved utilizing lidocaine. Vital signs were monitored by the nurse. START TIME/TIMEOUT TIME: 10:51 AM END TIME: 11:02 AM INTRA-SERVICE (SEDATION) TIME: 11 minutes PATIENT MONITORING: The staff physician personally supervised and directed an independent trained observer who assisted in monitoring the patient?s level of consciousness and physiological status throughout the procedure. COMPLICATIONS: None SIGN-OUT DISCUSSION: Completed ESTIMATED BLOOD LOSS: Minimal SPECIMENS: 11 cc fluid aspirated and sent to the lab DRAIN(S): 10 Panamanian pigtail drain IMPRESSION: ULTRASOUND GUIDED DRAIN PLACEMENT IN RIGHT UPPER QUADRANT FLUID COLLECTION DESCRIBED Activities Coordinator: AZALEA Transcribe Date/Time: Jan 06 2021 11:28A Dictated by : NINA CHAVIRA MD This examination was interpreted and the report reviewed and electronically signed by: NINA CHAVIRA MD on Jan 06 2021 11:31AM EST [id number] [facility] Basic metabolic 2000 panelon 01-05-2021 Anion gap [Moles/Vol] 9 mmol/L Normal 9-18 [facility] Comment on above: Order Comment: Speci men Type: BLOOD SPECIMEN Performed By: #### 1 988-5, 78471-2 #### [facility] CLIA [id number] [address] [place] Calcium [Mass/Vol] 9.4 mg/dL Normal 8.5-10.2 [facility] Comment on above: Order Comment: Speci men Type: BLOOD SPECIMEN Performed By: #### 1 988-5, 63156-7 #### [facility] CLIA [id number] 1 [place] [address] [place] Chloride [Moles/Vol] 105 mmol/L Normal 97-105 [facility] Comment on above: Order Comment: Speci men Type: BLOOD SPECIMEN Performed By: #### 1 988-5, 01336-1 #### [facility] CLIA [id number] [address] [place] [address] [place] CO2 [Moles/Vol] 26 mmol/L Normal 22-30 [facility] Comment on above: Order Comment: Speci men Type: BLOOD SPECIMEN Performed By: #### 1 988-5, 46001-4 #### [facility] CLIA [id number] [address] [place] Creatinine [Mass/Vol] 1.06 mg/dL Normal 0.73-1.22 [facility] Comment on above: Order Comment: Speci men Type: BLOOD SPECIMEN Performed By: #### 1 988-5, 13918-5 #### [facility] CLIA [id number] [address] [place] [address] [place] GFR/1.73 sq M.predicted MDRD (S/P/Bld) [Vol rate/Area] mL/min/{1.73_m2} [facility] Comment on above: Order Comment: Speci men Type: BLOOD SPECIMEN Result Comment: >60 eGFR (Estimated GFR) Units of measure: mL/min/1.73 [...] accurately reflect actual GFR. Performed By: #### 1 988-5, 50065-1 #### [facility] CLIA [id number] [address] [place] [address] [place] Glucose [Mass/Vol] 136 mg/dL High 74-99 [facility] Comment on above: Order Comment: Speci men Type: BLOOD SPECIMEN Result Comment: The [place] [employer] (ADA) provides guidance for cutoff values for fasting glucose and random glucose. The ADA defines fasting as no caloric intake for at least 8 hours. Fasting plasma glucose results between 100 to 125 [...] Standards of Medical Care in Diabetes 2016, [place] [employer]. Diabetes Care. 2016.39(Suppl 1). Performed By: #### 1 988-5, 83786-9 #### [facility] CLIA [id number] [address] [place] [id number] [place] Potassium [Moles/Vol] 3.9 mmol/L Normal 3.7-5.1 [facility] Comment on above: Order Comment: Speci men Type: BLOOD SPECIMEN Performed By: #### 1 988-5, 69010-4 #### [facility] CLIA [id number] [address] Sodium [Moles/Vol] 140 mmol/L Normal 136-144 [facility] Comment on above: Order Comment: Speci men Type: BLOOD SPECIMEN Performed By: #### 1 988-5, 59694-0 #### [facility] CLIA [id number] [address] Urea nitrogen [Mass/Vol] 17 mg/dL Normal 9-24 [facility] Comment on above: Order Comment: Speci men Type: BLOOD SPECIMEN Performed By: #### 1 988-5, 39564-6 #### [facility] CLIA [id number] [address] CASE MANAGEMon 01-05-2021 CASE MANAGEM HNO ID: [id number] Author: Rosie Guerra RN Service: ? Author Type: Registered Nurse Type: Care Mgt Progress Note Filed: 01/05/2021 3:09 PM Note Text: CARE MANAGEMENT PROGRESS NOTE SERVICE DATE: 01/05/2021 SERVICE TIME: 3:09 PM LOS: 3 days This patient has been screened for Care Management Transitional Planning Services. At this time, it does not appear this patient will require transition planning services. Should this change, and the patient require transition planning services during this admission, please call [phone]. Rosie Guerra RN January 05, 2021 3:09 PM SIGNATURE: Rosie Guerra RN PATIENT NAME: Annabella Chapa DATE: January 05, 2021 TIME: 3:09 PM PAGER/CONTACT #: [phone] [facility] CBC W Auto Differential pane l (Bld)on 01-05-2021 Basophils (Bld) [#/Vol] 10*3/uL Normal <0.11 [facility] Comment on above: Order Comment: Speci men Type: BLOOD SPECIMEN Performed By: #### 1 988-, #### [facility] CLIA [id number] [address] Basophils/100 WBC (Bld) 0.1 % [facility] Comment on above: Order Comment: Speci men Type: BLOOD SPECIMEN Performed By: #### 1 988, #### [facility] CLIA [id number] [address] Differential cell count method Nom (Bld) Auto Normal [facility] Comment on above: Order Comment: Speci men Type: BLOOD SPECIMEN Performed By: #### 1 , #### [facility] CLIA [id number] [address] [place] [address] Eosinophils (Bld) [#/Vol] 10*3/uL Normal <0.46 [facility] Comment on above: Order Comment: Speci men Type: BLOOD SPECIMEN Performed By: #### 1 , #### [facility] CLIA [id number] [address] Eosinophils/100 WBC (Bld) 0.0 % [facility] Comment on above: Order Comment: Speci men Type: BLOOD SPECIMEN Performed By: #### 1 988-, #### [facility] CLIA [id number] [address] [place] [address] Erythrocyte distribution width (RBC) [Ratio] 18.6 % High 11.5-15.0 [facility] Comment on above: Order Comment: Speci men Type: BLOOD SPECIMEN Performed By: #### 1 988-, #### [facility] CLIA [id number] [address] Hematocrit (Bld) [Volume fraction] 39.8 % Normal 39.0-51.0 [facility] Comment on above: Order Comment: Speci men Type: BLOOD SPECIMEN Performed By: #### 1 988-5, #### [facility] CLIA [id number] [address] Hemoglobin (Bld) [Mass/Vol] 12.9 g/dL Low 13.0-17.0 [facility] Comment on above: Order Comment: Speci men Type: BLOOD SPECIMEN Performed By: #### 1 988-5, #### [facility] CLIA [id number] [address] IMMATURE GRAN % 0.8 % Normal [facility] Comment on above: Order Comment: Speci men Type: BLOOD SPECIMEN Performed By: #### 1 988-5, #### [facility] CLIA [id number] [address] IMMATURE GRAN ABS 0.12 k/uL High <0.10 [facility] Comment on above: Order Comment: Speci men Type: BLOOD SPECIMEN Performed By: #### 1 988-5, #### [facility] CLIA [id number] [address] Lymphocytes (Bld) [#/Vol] 0.40 10*3/uL Low 1.00-4.00 [facility] Comment on above: Order Comment: Speci men Type: BLOOD SPECIMEN Performed By: #### 1 988-5, #### [facility] CLIA [id number] [address] [place] [address] Lymphocytes/100 WBC (Bld) 2.8 % Normal [facility] Comment on above: Order Comment: Speci men Type: BLOOD SPECIMEN Performed By: #### 1 988-5, #### [facility] CLIA [id number] [address] MCH (RBC) [Entitic mass] 26.3 pg Normal 26.0-34.0 [facility] Comment on above: Order Comment: Speci men Type: BLOOD SPECIMEN Performed By: #### 1 988-5, #### [facility] CLIA [id number] [address] MCHC (RBC) [Mass/Vol] 32.4 g/dL Normal 30.5-36.0 [facility] Comment on above: Order Comment: Speci men Type: BLOOD SPECIMEN Performed By: #### 1 988-, #### [facility] CLIA [id number] [address] MCV (RBC) [Entitic vol] 81.1 fL Normal 80.0-100.0 [facility] Comment on above: Order Comment: Speci men Type: BLOOD SPECIMEN Performed By: #### 1 988-, #### [facility] CLIA [id number] [address] Monocytes (Bld) [#/Vol] 0.33 10*3/uL Normal <0.87 [facility] Comment on above: Order Comment: Speci men Type: BLOOD SPECIMEN Performed By: #### 1 988-, #### [facility] CLIA [id number] [address] Monocytes/100 WBC (Bld) 2.3 % Normal [facility] Comment on above: Order Comment: Speci men Type: BLOOD SPECIMEN Performed By: #### 1 988-, #### [facility] CLIA [id number] [address] Neutrophils (Bld) [#/Vol] 13.36 10*3/uL High 1.45-7.50 [facility] Comment on above: Order Comment: Speci men Type: BLOOD SPECIMEN Performed By: #### 1 988-, #### [facility] CLIA [id number] [address] Neutrophils/100 WBC (Bld) 94.0 % Normal [facility] Comment on above: Order Comment: Speci men Type: BLOOD SPECIMEN Performed By: #### 1 988-5, #### [facility] CLIA [id number] [address] Nucleated RBC (Bld) [#/Vol] 10*3/uL Normal <0.01 [facility] Comment on above: Order Comment: Speci men Type: BLOOD SPECIMEN Performed By: #### 1 988-, #### [facility] CLIA [id number] [address] Nucleated RBC/100 WBC (Bld) [Ratio] 0.0 /100 WBC Normal 0.0 [facility] Comment on above: Order Comment: Speci men Type: BLOOD SPECIMEN Performed By: #### 1 988-, #### [facility] CLIA [id number] [address] Platelet mean volume (Bld) [Entitic vol] 9.0 fL Normal 9.0-12.7 [facility] Comment on above: Order Comment: Speci men Type: BLOOD SPECIMEN Performed By: #### 1 988-5, #### [facility] CLIA [id number] [address] Platelets (Bld) [#/Vol] 173 10*3/uL Normal 150-400 [facility] Comment on above: Order Comment: Speci men Type: BLOOD SPECIMEN Performed By: #### 1 988-5, #### [facility] CLIA [id number] [address] RBC (Bld) [#/Vol] 4.91 10*6/uL Normal 4.20-6.00 [facility] Comment on above: Order Comment: Speci men Type: BLOOD SPECIMEN Performed By: #### 1 988-, 56181-9 #### [facility] CLIA [id number] [address] WBC (Bld) [#/Vol] 14.22 10*3/uL High 3.70-11.00 [facility] Comment on above: Order Comment: Speci men Type: BLOOD SPECIMEN Performed By: #### 1 988-5, 69886-4 #### [facility] CLIA [id number] 1 [place] [id number] [facility] CONSULT PROGon 01-05-2021 CONSULT PROG HNO ID: [id number] Author: Julián Jansen APRN.[employer] Service: Gastroenterology Author Type: Nurse Practitioner Type: Consult Progress Note Filed: 01/05/2021 3:01 PM Note Text: GI SERVICE CONSULT PROGRESS NOTE SERVICE DATE: 01/05/2021 SERVICE TIME: 11:00 AM Subjective INTERVAL HPI: Following the patient for Crohn's exacerbation. Patient denied abdominal pain, nausea, vomiting, or hematochezia. He had one bowel movement today. Current Facility-Administered Medications Medication Dose Route Frequency - ergocalciferol (vitamin D2) 50,000 Units cap(s) (DRISDOL) 50,000 Units ORAL 1/WK - perflutren lipid microspheres 1.3 mL in NaCl (PF) 0.9% 10 mL injection (DEFINITY) INTRAVENOUS DIRECTED PRN - sodium chloride 0.9 % (flush) 10 mL (BD POSIFLUSH) 10 mL INTRAVENOUS DIRECTED PRN - dilTIAZem CD 300 mg cap(s) (CARDIZEM CD, CARTIA XT) 300 mg ORAL DAILY - losartan 100 mg tab(s) (COZAAR) 100 mg ORAL DAILY - NaCl 0.9% iv flush bag 20 mL INTRAVENOUS PRN - ondansetron 4 mg tab(s) (ZOFRAN) 4 mg ORAL q 6 H PRN Or - ondansetron (PF) 4 mg injection (ZOFRAN) 4 mg INTRAVENOUS q 6 H PRN - acetaminophen 650 mg tab(s) (TYLENOL) 650 mg ORAL q 6 H PRN - heparin 5,000 Units injection 5,000 Units SUBCUTANEOUS q 12 H - sodium chloride 0.9 % (flush) 3-5 mL (BD POSIFLUSH) 3-5 mL INTRAVENOUS q 12 H - guaiFENesin 600 mg ER tab(s) (MUCINEX) 600 mg ORAL q 12 H PRN - docusate sodium 100 mg cap(s) (COLACE) 100 mg ORAL BID PRN - aluminum-magnesium hydroxide-simethicone 200-200-20 mg/5 mL 30 mL (MAALOX,MYLANTA,MAG-AL PLUS) 30 mL ORAL q 6 H PRN - melatonin 3 mg tab(s) 3 mg ORAL HS PRN - polyvinyl alcohol-povidone 1.4-0.6 % 1 Drop (REFRESH) 1 Drop BOTH EYES PRN - sodium chloride 0.65 % 2 Trezevant (AYR, OCEAN) 2 Trezevant EACH NOSTRIL PRN - Lip Protectant with Sunscreen SPF 15 1 application Stick (Blistex) 1 application TOPICAL PRN - saliva substitute combo no.9 15 mL (BIOTENE mouthwash) 15 mL MUCOUS MEMBRANE (TOPICAL MOUTH AND THROAT) TID PRN - benzocaine-menthol 1 Lozenge (CEPACOL) 1 Lozenge MUCOUS MEMBRANE (TOPICAL MOUTH AND THROAT) q 2 H PRN - lactated ringers iv infusion 75 mL/hr INTRAVENOUS CONTINUOUS - metoprolol succinate ER 50 mg tab(s) (TOPROL XL) 50 mg ORAL AT BEDTIME - methylPREDNISolone sod succinate(PF) 60 mg injection (SOLU-Medrol) 60 mg INTRAVENOUS q 6 H - piperacillin-tazobacta m iv piggyback 3.375 g in dextrose (iso-osmotic) 50 mL (ZOSYN) 3.375 g INTRAVENOUS q 6 H Objective PHYSICAL EXAM: Physical Exam Performed: GENERAL: Alert and oriented X 3 in no distress, cooperative and following commands LUNGS: Lungs clear to auscultation, even and unlabored on RA CARDIAC: Normal S1 and S2 ABDOMEN: Abdomen soft, obese, and non-tender on palpation without guarding, rebound, or distention with + BS X 4 PULSES: 2+ radial BP 149/90 Pulse 83 Temp (Src) 97.7 (Oral) Resp 18 Ht 5' 8 (1.73m) Wt 251 lb 11.2 oz (114.2kg) SpO2 95% BMI 38.28 kg/(m2). O2 Therapy: Room Air DATA: Diagnostic tests reviewed for today's visit: Ref. Range 01/05/2021 00:29 Sodium Latest Ref Range: 136 - 144 mmol/L 140 Potassium Latest Ref Range: 3.7 - 5.1 mmol/L 3.9 Chloride Latest Ref Range: 97 - 105 mmol/L 105 CO2 Latest Ref Range: 22 - 30 mmol/L 26 BUN Latest Ref Range: 9 - 24 mg/dL 17 Creatinine Latest Ref Range: 0.73 - 1.22 mg/dL 1.06 Glucose Latest Ref Range: 74 - 99 mg/dL 136 (H) Calcium Latest Ref Range: 8.5 - 10.2 mg/dL 9.4 Anion Gap Latest Ref Range: 9 - 18 mmol/L 9 eGFR- Unknown >60 eGFR-All Other Races Unknown >60 Ref. Range 01/05/2021 00:29 WBC Latest Ref Range: 3.70 - 11.00 k/uL 14.22 (H) RBC Latest Ref Range: 4.20 - 6.00 m/uL 4.91 Hemoglobin Latest Ref Range: 13.0 - 17.0 g/dL 12.9 (L) Hematocrit Latest Ref Range: 39.0 - 51.0 % 39.8 Platelet Count Latest Ref Range: 150 - 400 k/uL 173 MCV Latest Ref Range: 80.0 - 100.0 fL 81.1 Impression/Recommendat ions 1). 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 Addendum: Discussed with Dr. Tang who agrees with IR abscess drainage and follow up with Dr. Aquino. SIGNATURE: Julián Jansen APRN.[employer] PATIENT NAME: Annabella Chapa DATE: January 05, 2021 TIME: 2:53 PM PAGER: Normal [facility] CBC W Auto Differential pane l (Bld)on 01-04-2021 Basophils (Bld) [#/Vol] 10*3/uL Normal <0.11 [facility] Comment on above: Order Comment: Speci men Type: BLOOD SPECIMEN Performed By: #### 5 7021-8 #### [facility] CLIA [id number] [address] Basophils/100 WBC (Bld) 0.1 % Normal [facility] Comment on above: Order Comment: Speci men Type: BLOOD SPECIMEN Performed By: #### 5 7021-8 #### [facility] CLIA [id number] [address] Differential cell count method Nom (Bld) Auto Normal [facility] Comment on above: Order Comment: Speci men Type: BLOOD SPECIMEN Performed By: #### 5 7021-8 #### [facility] CLIA [id number] [address] Eosinophils (Bld) [#/Vol] 10*3/uL Normal <0.46 [facility] Comment on above: Order Comment: Speci men Type: BLOOD SPECIMEN Performed By: #### 5 7021-8 #### [facility] CLIA [id number] [address] Eosinophils/100 WBC (Bld) 0.0 % Normal [facility] Comment on above: Order Comment: Speci men Type: BLOOD SPECIMEN Performed By: #### 5 7021-8 #### [facility] CLIA [id number] [address] Erythrocyte distribution width (RBC) [Ratio] 18.4 % High 11.5-15.0 [facility] Comment on above: Order Comment: Speci men Type: BLOOD SPECIMEN Performed By: #### 5 7021-8 #### [facility] CLIA [id number] [address] Hematocrit (Bld) [Volume fraction] 37.7 % Low 39.0-51.0 [facility] Comment on above: Order Comment: Speci men Type: BLOOD SPECIMEN Performed By: #### 5 7021-8 #### [facility] CLIA [id number] [address] Hemoglobin (Bld) [Mass/Vol] 12.5 g/dL Low 13.0-17.0 [facility] Comment on above: Order Comment: Speci men Type: BLOOD SPECIMEN Performed By: #### 5 7021-8 #### [facility] CLIA [id number] [address] IMMATURE GRAN % 1.1 % Normal [facility] Comment on above: Order Comment: Speci men Type: BLOOD SPECIMEN Performed By: #### 5 7021-8 #### [facility] CLIA [id number] [address] IMMATURE GRAN ABS 0.17 k/uL High <0.10 [facility] Comment on above: Order Comment: Speci men Type: BLOOD SPECIMEN Performed By: #### 5 7021-8 #### [facility] CLIA [id number] [address] Lymphocytes (Bld) [#/Vol] 0.48 10*3/uL Low 1.00-4.00 [facility] Comment on above: Order Comment: Speci men Type: BLOOD SPECIMEN Performed By: #### 5 7021-8 #### [facility] CLIA [id number] [address] Lymphocytes/100 WBC (Bld) 3.0 % Normal [facility] Comment on above: Order Comment: Speci men Type: BLOOD SPECIMEN Performed By: #### 5 7021-8 #### [facility] CLIA [id number] [address] MCH (RBC) [Entitic mass] 26.9 pg Normal 26.0-34.0 [facility] Comment on above: Order Comment: Speci men Type: BLOOD SPECIMEN Performed By: #### 5 7021-8 #### [facility] CLIA [id number] [address] MCHC (RBC) [Mass/Vol] 33.2 g/dL Normal 30.5-36.0 [facility] Comment on above: Order Comment: Speci men Type: BLOOD SPECIMEN Performed By: #### 5 7021-8 #### [facility] CLIA [id number] [address] MCV (RBC) [Entitic vol] 81.1 fL Normal 80.0-100.0 [facility] Comment on above: Order Comment: Speci men Type: BLOOD SPECIMEN Performed By: #### 5 7021-8 #### [facility] CLIA [id number] [address] Monocytes (Bld) [#/Vol] 0.26 10*3/uL Normal <0.87 [facility] Comment on above: Order Comment: Speci men Type: BLOOD SPECIMEN Performed By: #### 5 7021-8 #### [facility] CLIA [id number] [address] Monocytes/100 WBC (Bld) 1.6 % Normal [facility] Comment on above: Order Comment: Speci men Type: BLOOD SPECIMEN Performed By: #### 5 7021-8 #### [facility] CLIA [id number] [address] Neutrophils (Bld) [#/Vol] 14.84 10*3/uL High 1.45-7.50 [facility] Comment on above: Order Comment: Speci men Type: BLOOD SPECIMEN Performed By: #### 5 7021-8 #### [facility] CLIA [id number] [address] Neutrophils/100 WBC (Bld) 94.2 % Normal [facility] Comment on above: Order Comment: Speci men Type: BLOOD SPECIMEN Performed By: #### 5 7021-8 #### [facility] CLIA [id number] [address] Nucleated RBC (Bld) [#/Vol] 10*3/uL Normal <0.01 [facility] Comment on above: Order Comment: Speci men Type: BLOOD SPECIMEN Performed By: #### 5 7021-8 #### [facility] CLIA [id number] [address] Nucleated RBC/100 WBC (Bld) [Ratio] 0.0 /100 WBC Normal 0.0 [facility] Comment on above: Order Comment: Speci men Type: BLOOD SPECIMEN Performed By: #### 5 7021-8 #### [facility] CLIA [id number] [address] Platelet mean volume (Bld) [Entitic vol] 9.4 fL Normal 9.0-12.7 [facility] Comment on above: Order Comment: Speci men Type: BLOOD SPECIMEN Performed By: #### 5 7021-8 #### [facility] CLIA [id number] [address] Platelets (Bld) [#/Vol] 168 10*3/uL Normal 150-400 [facility] Comment on above: Order Comment: Speci men Type: BLOOD SPECIMEN Performed By: #### 5 7021-8 #### [facility] CLIA [id number] [address] RBC (Bld) [#/Vol] 4.65 10*6/uL Normal 4.20-6.00 [facility] Comment on above: Order Comment: Speci men Type: BLOOD SPECIMEN Performed By: #### 5 7021-8 #### [facility] CLIA [id number] [address] WBC (Bld) [#/Vol] 15.76 10*3/uL High 3.70-11.00 [facility] Comment on above: Order Comment: Speci men Type: BLOOD SPECIMEN Performed By: #### 5 7021-8 #### [facility] CLIA [id number] [address] [place] CONSULT PROGon 01-04-2021 CONSULT PROG HNO ID: [id number] Author: Julián Jansen APRN.[employer]TER Service: Gastroenterology Author Type: Nurse Practitioner Type: Consult Progress Note Filed: 01/04/2021 3:17 PM Note Text: GI SERVICE CONSULT PROGRESS NOTE SERVICE DATE: 01/04/2021 SERVICE TIME: 12:40 PM Subjective INTERVAL HPI: Following the patient for Crohn's exacerbation. Patient ambulating room, denied abdominal pain, nausea, vomiting, fever, or chills. Had 2 bowel movements today. Current Facility-Administered Medications Medication Dose Route Frequency - ergocalciferol (vitamin D2) 50,000 Units cap(s) (DRISDOL) 50,000 Units ORAL 1/WK - perflutren lipid microspheres 1.3 mL in NaCl (PF) 0.9% 10 mL injection (DEFINITY) INTRAVENOUS DIRECTED PRN - sodium chloride 0.9 % (flush) 10 mL (BD POSIFLUSH) 10 mL INTRAVENOUS DIRECTED PRN - dilTIAZem CD 300 mg cap(s) (CARDIZEM CD, CARTIA XT) 300 mg ORAL DAILY - losartan 100 mg tab(s) (COZAAR) 100 mg ORAL DAILY - NaCl 0.9% iv flush bag 20 mL INTRAVENOUS PRN - ondansetron 4 mg tab(s) (ZOFRAN) 4 mg ORAL q 6 H PRN Or - ondansetron (PF) 4 mg injection (ZOFRAN) 4 mg INTRAVENOUS q 6 H PRN - acetaminophen 650 mg tab(s) (TYLENOL) 650 mg ORAL q 6 H PRN - heparin 5,000 Units injection 5,000 Units SUBCUTANEOUS q 12 H - sodium chloride 0.9 % (flush) 3-5 mL (BD POSIFLUSH) 3-5 mL INTRAVENOUS q 12 H - guaiFENesin 600 mg ER tab(s) (MUCINEX) 600 mg ORAL q 12 H PRN - docusate sodium 100 mg cap(s) (COLACE) 100 mg ORAL BID PRN - aluminum-magnesium hydroxide-simethicone 200-200-20 mg/5 mL 30 mL (MAALOX,MYLANTA,MAG-AL PLUS) 30 mL ORAL q 6 H PRN - melatonin 3 mg tab(s) 3 mg ORAL HS PRN - polyvinyl alcohol-povidone 1.4-0.6 % 1 Drop (REFRESH) 1 Drop BOTH EYES PRN - sodium chloride 0.65 % 2 Trezevant (AYR, OCEAN) 2 Trezevant EACH NOSTRIL PRN - Lip Protectant with Sunscreen SPF 15 1 application Stick (Blistex) 1 application TOPICAL PRN - saliva substitute combo no.9 15 mL (BIOTENE mouthwash) 15 mL MUCOUS MEMBRANE (TOPICAL MOUTH AND THROAT) TID PRN - benzocaine-menthol 1 Lozenge (CEPACOL) 1 Lozenge MUCOUS MEMBRANE (TOPICAL MOUTH AND THROAT) q 2 H PRN - lactated ringers iv infusion 75 mL/hr INTRAVENOUS CONTINUOUS - metoprolol succinate ER 50 mg tab(s) (TOPROL XL) 50 mg ORAL AT BEDTIME - methylPREDNISolone sod succinate(PF) 60 mg injection (SOLU-Medrol) 60 mg INTRAVENOUS q 6 H - piperacillin-tazobacta m iv piggyback 3.375 g in dextrose (iso-osmotic) 50 mL (ZOSYN) 3.375 g INTRAVENOUS q 6 H Objective PHYSICAL EXAM: Physical Exam Performed: GENERAL: Alert and oriented X 3 in no distress, cooperative and following commands LUNGS: Lungs clear to auscultation, even and unlabored on RA CARDIAC: Normal S1 and S2 ABDOMEN: Abdomen soft, obese, and non-tender on palpation without guarding, rebound, or distention with + BS X 4 PULSES: 2+ radial BP 153/90 Pulse 76 Temp (Src) 98.2 (Oral) Resp 18 Ht 5' 8 (1.73m) Wt 248 lb 4.8 oz (112.6kg) SpO2 98% BMI 37.76 kg/(m2). O2 Therapy: Room Air DATA: Diagnostic tests reviewed for today's visit: Ref. Range 01/04/2021 06:13 Sodium Latest Ref Range: 136 - 144 mmol/L 139 Potassium Latest Ref Range: 3.7 - 5.1 mmol/L 4.0 Chloride Latest Ref Range: 97 - 105 mmol/L 105 CO2 Latest Ref Range: 22 - 30 mmol/L 25 BUN Latest Ref Range: 9 - 24 mg/dL 16 Creatinine Latest Ref Range: 0.73 - 1.22 mg/dL 1.09 Glucose Latest Ref Range: 74 - 99 mg/dL 130 (H) Protein, Total Latest Ref Range: 6.3 - 8.0 g/dL 5.5 (L) Calcium Latest Ref Range: 8.5 - 10.2 mg/dL 9.4 Albumin Latest Ref Range: 3.9 - 4.9 g/dL 3.7 (L) Bilirubin, Total Latest Ref Range: 0.2 - 1.3 mg/dL 0.7 Alkaline Phosphatase Latest Ref Range: 38 - 113 U/L 65 ALT Latest Ref Range: 10 - 54 U/L 26 AST Latest Ref Range: 14 - 40 U/L 15 Anion Gap Latest Ref Range: 9 - 18 mmol/L 9 eGFR- Unknown >60 eGFR-All Other Races Unknown >60 CRP Latest Ref Range: <0.9 mg/dL 0.3 Ref. Range 01/04/2021 06:13 WBC Latest Ref Range: 3.70 - 11.00 k/uL 15.76 (H) RBC Latest Ref Range: 4.20 - 6.00 m/uL 4.65 Hemoglobin Latest Ref Range: 13.0 - 17.0 g/dL 12.5 (L) Hematocrit Latest Ref Range: 39.0 - 51.0 % 37.7 (L) Platelet Count Latest Ref Range: 150 - 400 k/uL 168 MCV Latest Ref Range: 80.0 - 100.0 fL 81.1 Impression/Recommendat ions 1). 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 SIGNATURE: Julián Jansen APRN.[employer] P[employer]ITTER PATIENT NAME: Annabella Chapa DATE: January 04, 2021 MRN: [id number] (more content not included)... Normal [facility] CRP SerPl-mCncon 01-04-2021 CRP [Mass/Vol] 0.3 mg/dL Normal <0.9 [facility] Comment on above: Order Comment: Speci men Type: BLOOD SPECIMEN Performed By: #### 1 988-5, 74067-1 #### [facility] CLIA [id number] [address] Comprehensive metabolic 2000 panelon 01-04-2021 Albumin [Mass/Vol] 3.7 g/dL Low 3.9-4.9 [facility] Comment on above: Order Comment: Speci men Type: BLOOD SPECIMEN Performed By: #### 1 988-5, 29439-7 #### [facility] CLIA [id number] [address] ALP [Catalytic activity/Vol] 65 U/L Normal 38-113 [facility] Comment on above: Order Comment: Speci men Type: BLOOD SPECIMEN Performed By: #### 1 988-5, 18467-3 #### [facility] CLIA [id number] [address] ALT With P-5'-P [Catalytic activity/Vol] 26 U/L Normal 10-54 [facility] Comment on above: Order Comment: Speci men Type: BLOOD SPECIMEN Performed By: #### 1 988-5, 52923-0 #### [facility] CLIA [id number] [address] Anion gap [Moles/Vol] 9 mmol/L Normal 9-18 [facility] Comment on above: Order Comment: Speci men Type: BLOOD SPECIMEN Performed By: #### 1 988-5, 27145-2 #### [facility] CLIA [id number] [address] AST With P-5'-P [Catalytic activity/Vol] 15 U/L Normal 14-40 [facility] Comment on above: Order Comment: Speci men Type: BLOOD SPECIMEN Performed By: #### 1 988-5, #### [facility] CLIA [id number] [address] Bilirubin [Mass/Vol] 0.7 mg/dL Normal 0.2-1.3 [facility] Comment on above: Order Comment: Speci men Type: BLOOD SPECIMEN Performed By: #### 1 988-, #### [facility] CLIA [id number] [address] Calcium [Mass/Vol] 9.4 mg/dL Normal 8.5-10.2 [facility] Comment on above: Order Comment: Speci men Type: BLOOD SPECIMEN Performed By: #### 1 988-, #### [facility] CLIA [id number] [address] Chloride [Moles/Vol] 105 mmol/L Normal 97-105 [facility] Comment on above: Order Comment: Speci men Type: BLOOD SPECIMEN Performed By: #### 1 988-5, #### [facility] CLIA [id number] [address] CO2 [Moles/Vol] 25 mmol/L Normal 22-30 [facility] Comment on above: Order Comment: Speci men Type: BLOOD SPECIMEN Performed By: #### 1 988-5, #### [facility] CLIA [id number] [address] [place] Creatinine [Mass/Vol] 1.09 mg/dL Normal 0.73-1.22 [facility] Comment on above: Order Comment: Speci men Type: BLOOD SPECIMEN Performed By: #### 1 988-5, #### [facility] CLIA [id number] [address] [place] GFR/1.73 sq M.predicted MDRD (S/P/Bld) [Vol rate/Area] mL/min/{1.73_m2} Normal [facility] Comment on above: Order Comment: Speci men Type: BLOOD SPECIMEN Result Comment: >60 eGFR (Estimated GFR) Units of measure: mL/min/1.73 [...] accurately reflect actual GFR. Performed By: #### 1 988-5, 37691-9 #### [facility] CLIA [id number] [address] [place] [address] [place] Glucose [Mass/Vol] 130 mg/dL High 74-99 [facility] Comment on above: Order Comment: Speci men Type: BLOOD SPECIMEN Result Comment: The [place] [employer] (ADA) provides guidance for cutoff values for fasting glucose and random glucose. The ADA defines fasting as no caloric intake for at least 8 hours. Fasting plasma glucose results between 100 to 125 [...] Standards of Medical Care in Diabetes 2016, [place] [employer]. Diabetes Care. 2016.39(Suppl 1). Performed By: #### 1 988-5, 40179-2 #### [facility] CLIA [id number] [address] [place] [address] [place] Potassium [Moles/Vol] 4.0 mmol/L Normal 3.7-5.1 [facility] Comment on above: Order Comment: Speci men Type: BLOOD SPECIMEN Performed By: #### 1 988-, 47298-6 #### [facility] CLIA [id number] [address] [place] Protein [Mass/Vol] 5.5 g/dL Low 6.3-8.0 [facility] Comment on above: Order Comment: Speci men Type: BLOOD SPECIMEN Performed By: #### 1 988-5, 08664-1 #### [facility] CLIA [id number] [address] [place] [facility] Sodium [Moles/Vol] 139 mmol/L Normal 136-144 [facility] Comment on above: Order Comment: Speci men Type: BLOOD SPECIMEN Performed By: #### 1 988-5, 33463-4 #### [facility] CLIA [id number] [address] Urea nitrogen [Mass/Vol] 16 mg/dL Normal 9-24 [facility] Comment on above: Order Comment: Speci men Type: BLOOD SPECIMEN Performed By: #### 1 988-5, 45048-6 #### [facility] CLIA [id number] [address] OF [facility] ESR Westergren method (Bld) [Velocity]on 01-04-2021 ESR (Bld) [Velocity] 8 mm/h Normal 0-15 [facility] Comment on above: Order Comment: Speci men Type: BLOOD SPECIMEN Performed By: #### 4 537-7 #### [facility] CLIA [id number] [address] [place] [address] OF [facility] Basic metabolic 2000 panelon 01-03-2021 Anion gap [Moles/Vol] 12 mmol/L Normal 9-18 [facility] Comment on above: Order Comment: Speci men Type: BLOOD SPECIMEN Performed By: #### 5 7021-8 #### [facility] CLIA [id number] [address] [place] Calcium [Mass/Vol] 9.3 mg/dL Normal 8.5-10.2 [facility] Comment on above: Order Comment: Speci men Type: BLOOD SPECIMEN Performed By: #### 5 7021-8 #### [facility] CLIA [id number] [address] [place] Chloride [Moles/Vol] 104 mmol/L Normal 97-105 [facility] Comment on above: Order Comment: Speci men Type: BLOOD SPECIMEN Performed By: #### 5 7021-8 #### [facility] CLIA [id number] [address] [place] CO2 [Moles/Vol] 23 mmol/L Normal 22-30 [facility] Comment on above: Order Comment: Speci men Type: BLOOD SPECIMEN Performed By: #### 5 7021-8 #### [facility] CLIA [id number] [address] [place] Creatinine [Mass/Vol] 1.08 mg/dL Normal 0.73-1.22 [facility] Comment on above: Order Comment: Speci men Type: BLOOD SPECIMEN Performed By: #### 5 7021-8 #### [facility] CLIA [id number] [address] [place] GFR/1.73 sq M.predicted MDRD (S/P/Bld) [Vol rate/Area] mL/min/{1.73_m2} Normal [facility] Comment on above: Order Comment: Speci men Type: BLOOD SPECIMEN Result Comment: >60 eGFR (Estimated GFR) Units of measure: mL/min/1.73 [...] accurately reflect actual GFR. Performed By: #### 5 7021-8 #### [facility] CLIA [id number] [address] [place] Glucose [Mass/Vol] 137 mg/dL High 74-99 [facility] Comment on above: Order Comment: Speci men Type: BLOOD SPECIMEN Result Comment: The [place] [employer] (ADA) provides guidance for cutoff values for fasting glucose and random glucose. The ADA defines fasting as no caloric intake for at least 8 hours. Fasting plasma glucose results between 100 to 125 [...] Standards of Medical Care in Diabetes 2016, [place] [employer]. Diabetes Care. 2016.39(Suppl 1). Performed By: #### 5 7021-8 #### [facility] CLIA [id number] [address] OF [facility] Potassium [Moles/Vol] 4.4 mmol/L Normal 3.7-5.1 [facility] Comment on above: Order Comment: Speci men Type: BLOOD SPECIMEN Performed By: #### 5 7021-8 #### [facility] CLIA [id number] [address] Sodium [Moles/Vol] 139 mmol/L Normal 136-144 [facility] Comment on above: Order Comment: Speci men Type: BLOOD SPECIMEN Performed By: #### 5 7021-8 #### [facility] CLIA [id number] [address] [place] Urea nitrogen [Mass/Vol] 17 mg/dL Normal 9-24 [facility] Comment on above: Order Comment: Speci men Type: BLOOD SPECIMEN Performed By: #### 5 7021-8 #### [facility] CLIA [id number] [address] [place] Bilirub Conj SerPl-mCncon Bilirubin.conjugated [Mass/Vol] mg/dL Normal <0.2 [facility] Comment on above: Order Comment: Speci men Type: BLOOD SPECIMEN Performed By: #### 5 7021-8 #### [facility] CLIA [id number] [address] CASE MANAGEMon 01-03-2021 CASE MANAGEM HNO ID: [id number] Author: Rosie Guerra RN Service: ? Author Type: Registered Nurse Type: Care Mgt Progress Note Filed: 01/03/2021 12:18 PM Note Text: CARE MANAGEMENT PROGRESS NOTE SERVICE DATE: 01/03/2021 SERVICE TIME: 12:17 PM LOS: 1 day This patient has been screened for Care Management Transitional Planning Services. At this time, it does not appear this patient will require transition planning services. Should this change, and the patient require transition planning services during this admission, please call [phone]. Rosie Guerra RN January 03, 2021 12:18 PM SIGNATURE: Rosie Guerra RN PATIENT NAME: Annabella Chapa DATE: January 03, 2021 TIME: 12:17 PM PAGER/CONTACT #: [phone] Normal [facility] CBC panel Auto (Bld)on 01-03 Erythrocyte distribution width (RBC) [Ratio] 18.4 % High 11.5-15.0 [facility] Comment on above: Order Comment: Speci men Type: BLOOD SPECIMEN Performed By: #### 5 8410-2 #### [facility] CLIA [id number] [address] Hematocrit (Bld) [Volume fraction] 37.9 % Low 39.0-51.0 [facility] Comment on above: Order Comment: Speci men Type: BLOOD SPECIMEN Performed By: #### 5 8410-2 #### [facility] CLIA [id number] [address] Hemoglobin (Bld) [Mass/Vol] 12.3 g/dL Low 13.0-17.0 [facility] Comment on above: Order Comment: Speci men Type: BLOOD SPECIMEN Performed By: #### 5 8410-2 #### [facility] CLIA [id number] [address] MCH (RBC) [Entitic mass] 26.5 pg Normal 26.0-34.0 [facility] Comment on above: Order Comment: Speci men Type: BLOOD SPECIMEN Performed By: #### 5 8410-2 #### [facility] CLIA [id number] [address] MCHC (RBC) [Mass/Vol] 32.5 g/dL Normal 30.5-36.0 [facility] Comment on above: Order Comment: Speci men Type: BLOOD SPECIMEN Performed By: #### 5 8410-2 #### [facility] CLIA [id number] [address] MCV (RBC) [Entitic vol] 81.7 fL Normal 80.0-100.0 [facility] Comment on above: Order Comment: Speci men Type: BLOOD SPECIMEN Performed By: #### 5 8410-2 #### [facility] CLIA [id number] [address] Nucleated RBC (Bld) [#/Vol] 10*3/uL Normal <0.01 [facility] Comment on above: Order Comment: Speci men Type: BLOOD SPECIMEN Performed By: #### 5 8410-2 #### [facility] CLIA [id number] [address] Platelet mean volume (Bld) [Entitic vol] 8.9 fL Low 9.0-12.7 [facility] Comment on above: Order Comment: Speci men Type: BLOOD SPECIMEN Performed By: #### 5 8410-2 #### [facility] CLIA [id number] [address] Platelets (Bld) [#/Vol] 151 10*3/uL Normal 150-400 [facility] Comment on above: Order Comment: Speci men Type: BLOOD SPECIMEN Performed By: #### 5 8410-2 #### [facility] CLIA [id number] [address] RBC (Bld) [#/Vol] 4.64 10*6/uL Normal 4.20-6.00 [facility] Comment on above: Order Comment: Speci men Type: BLOOD SPECIMEN Performed By: #### 5 8410-2 #### [facility] CLIA [id number] [address] WBC (Bld) [#/Vol] 8.18 10*3/uL Normal 3.70-11.00 [facility] Comment on above: Order Comment: Speci men Type: BLOOD SPECIMEN Performed By: #### 5 8410-2 #### [facility] CLIA [id number] [address] CONSULTon 01-03-2021 CONSULT HNO ID: [id number] Author: Hugh Ramirez MD Service: General Surgery Author Type: Resident Type: Consults Filed: 01/03/2021 5:26 PM Note Text: Attestation signed by Gerald Aquino MD at 01/06/2021 2:18 PM I had a long discussion with him about the finding of an abscess, especially given his longstanding Crohn's disease already on a biologic, and I do think we will need to work toward an eventual resection. Given his relative lack of symptoms, and the fact that his is , I do think we could defer this, and am not sure whether a drain will necessarily help the current issue, but if he does worsen it certainly would be reasonable to obtain an IR guided drain. I would like if we are going to work toward surgery for him to be off of steroids for as long as possible, ideally 4 to 6 weeks, and likely to hold the next Entyvio dose as well, but we will have to understand the timing that we are working toward to best manage his medical doses. I personally saw and examined the patient on 01/03/2021. I reviewed the resident?s note. I agree with the resident?s assessment and plan unless otherwise noted Gerald Aquino MD 2:18 PM 01/06/21 Please Note: This office note has been created using Tap[employer]reet, a speech recognition software program, and may contain errors including punctuation, grammar, spelling, gender, and inappropriate words or phrases that pertain to the sytem. CONSULT: Emergency General Surgery Service SERVICE DATE: 01/03/2021 SERVICE TIME: 4:09 PM REASON FOR CONSULT: Crohn's disease exacerbation REQUESTING PHYSICIAN: Abigail Haider PA-C Subjective 40 year old male w/PMH of Crohn's disease (s/p open ileocecectomy 2002 and on entyvio/budesonide for management), HTN and tachycardia (on diltiazem at home) whom presents as a consult for consideration of crohn's disease workup. Patient states that approximately 6 weeks ago he started to develop what he considered to be a normal Crohn's disease flare. 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 At the time, he was started on 10 mg of prednisone daily for 2 weeks, and was scheduled for an MR enterography. Patient states that he has a known abdominal wall abscess. Patient states that the abscess has increased in size according to the newest MR enterography. He denies ever having it drained, or a drain placed in the area. He states that he initially learned of this in two thousand eighteen, but did not follow-up with surgery for definitive management. Since that time patient states he has improved drastically. He denies any fever, chills, nausea, vomiting, emesis, melena, hematochezia, unexplained weight loss, weight loss, steatorrhea, drainage, any openings on the skin, or perianal disease. His last meal was today. He denies any anticoagulation/antipl atelet use. His last colonoscopy was scheduled for 2018 per chart review, but do not see any updated reports. He has never had a history of colorectal cancer. He has had fistulas and strictures in the past. He has never had to have a stricturoplasty in the past. He has never had an ECF that he is aware of. PAST MEDICAL HISTORY Diagnosis Date - Anemia - B12 deficiency 06/30/2018 - Calculus of kidney 11/23/2017 left ureterolithiasis - Crohn's disease of small intestine with complication (HCC) 03/02/2017 - DDD (degenerative disc disease), cervical 02/04/2018 on MRI - DDD (degenerative disc disease), lumbar 02/04/2018 on MRI - H/O right hemicolectomy 07/2000 - Hemorrhoids - HTN (hypertension) - Iron deficiency anemia due to chronic blood loss 10/08/2018 - Obesity, Class II, BMI 35-39.9 06/30/2018 - Proximal limb muscle weakness 02/04/2018 neg. myositis, vasculitis, Lyme, WNV, GBS work up. - Tachycardia 02/21/2018 - Vitamin D deficiency 06/30/2018 PAST SURGICAL HISTORY Procedure Laterality Date - COLECTOMY PARTIAL W ANASTOM Right 07/2000 Right hemicolectomy [facility] - COLONOSCOPY 05/11/2016 Grade 1 internal hemorrhoids, severe inflammation at surgical site - COLONOSCOPY 06/23/2005 Crohn's activity at ileocolonic anastamosis - COLONOSCOPY 09/17/2006 Persistent surgical anastomotic stricture.Significant inflammation and ulceration on ileal side of anastomosis - COLONOSCOPY 05/25/2018 Stenosis of ileocolonic anastomosis, Crohn's disease, hemorrhoids, markedly ulcerated colonic mucosa - COLONOSCOPY 02/03/2019 chronic active colitis - EGD 02/03/2019 cervical inlet patch, minimal active inflammation - PAST SURGICAL HISTORY OF 1998 left ankle broken, screws FAMILY HISTORY Problem Relation Age of Onset - Colon Cancer Paternal Uncle 55 - Breast Cancer Maternal Aunt - Cancer Maternal Gr (more content not included)... Normal [facility] CONSULT HNO ID: [id number] Author: Venkat Silva MD Service: Infectious Disease Author Type: Physician Type: Consults Filed: 01/03/2021 4:01 PM Note Text: INITIAL CONSULT INFECTIOUS DISEASE SERVICE DATE: 01/03/2021 SERVICE TIME: 9:56 AM We were asked to evaluate Mr. Annabella Chapa, a 40 year old yo male by Mk Rousseau for IBD flare. Our findings and recommendations will be communicated through the shared medical record. ASSESSMENT: 1. Abdominal wall abscess 2. Crohn's w entero-enteric fistula Abdominal wall collection/abscess who need to be either aspirated or drained. Will obtain culture when that occurs. Aware general surgery consult pending. Will await input from general surgery.? Surgical intervention versus image guided aspiration/drain placement. Agree with Zosyn as empiric therapy. Discontinue Flagyl as Zosyn has good anaerobic coverage Estimated Creatinine Clearance: 108.9 mL/min (based on SCr of 1.08 mg/dL). RECOMMENDATIONS: - cont Zosyn, dc flagyl - await general surgery input re: IR-drain/aspiration vs surgical intervention Dr Yolanda Arguello is available over the weekend if questions arise Subjective SUBJECTIVE: HPI: 40 year old male History of Crohn's, hypertension, presented [facility] 01/02/2021 for Direct mission for MRI finding. MRI enterography 01/01/2021 showed persistent enteroenteric fistula and enlarging abscess deep to the right abdominal wall musculature. Patient is actually during quite well. Does not complain of any fever, significant abdominal pain, or any symptoms that resembled infection. In fact patient stated that he is getting better with the oral Flagyl that he was on was completed 2 weeks prior Active Antimicrobials (From admission, onward) Start Stop 01/03/21 0600 piperacillin-tazobacta m iv piggyback 3.375 g in dextrose (iso-osmotic) 50 mL (ZOSYN) 3.375 g, INTRAVENOUS, EVERY 8 HOURS -- 01/02/21 2130 metroNIDAZOLE iv piggyback 500 mg in NaCl (iso-osmotic) 100 mL (FLAGYL) 500 mg, INTRAVENOUS, EVERY 8 HOURS -- Immunosuppressants: entyvio Current other medications reviewed. Current Facility-Administered Medications Medication Dose Route Frequency - ergocalciferol (vitamin D2) 50,000 Units cap(s) (DRISDOL) 50,000 Units ORAL 1/WK - perflutren lipid microspheres 1.3 mL in NaCl (PF) 0.9% 10 mL injection (DEFINITY) INTRAVENOUS DIRECTED PRN - sodium chloride 0.9 % (flush) 10 mL (BD POSIFLUSH) 10 mL INTRAVENOUS DIRECTED PRN - dilTIAZem CD 300 mg cap(s) (CARDIZEM CD, CARTIA XT) 300 mg ORAL DAILY - losartan 100 mg tab(s) (COZAAR) 100 mg ORAL DAILY - NaCl 0.9% iv flush bag 20 mL INTRAVENOUS PRN - ondansetron 4 mg tab(s) (ZOFRAN) 4 mg ORAL q 6 H PRN Or - ondansetron (PF) 4 mg injection (ZOFRAN) 4 mg INTRAVENOUS q 6 H PRN - acetaminophen 650 mg tab(s) (TYLENOL) 650 mg ORAL q 6 H PRN - heparin 5,000 Units injection 5,000 Units SUBCUTANEOUS q 12 H - sodium chloride 0.9 % (flush) 3-5 mL (BD POSIFLUSH) 3-5 mL INTRAVENOUS q 12 H - guaiFENesin 600 mg ER tab(s) (MUCINEX) 600 mg ORAL q 12 H PRN - docusate sodium 100 mg cap(s) (COLACE) 100 mg ORAL BID PRN - aluminum-magnesium hydroxide-simethicone 200-200-20 mg/5 mL 30 mL (MAALOX,MYLANTA,MAG-AL PLUS) 30 mL ORAL q 6 H PRN - melatonin 3 mg tab(s) 3 mg ORAL HS PRN - polyvinyl alcohol-povidone 1.4-0.6 % 1 Drop (REFRESH) 1 Drop BOTH EYES PRN - sodium chloride 0.65 % 2 Trezevant (AYR, OCEAN) 2 Trezevant EACH NOSTRIL PRN - Lip Protectant with Sunscreen SPF 15 1 application Stick (Blistex) 1 application TOPICAL PRN - saliva substitute combo no.9 15 mL (BIOTENE mouthwash) 15 mL MUCOUS MEMBRANE (TOPICAL MOUTH AND THROAT) TID PRN - benzocaine-menthol 1 Lozenge (CEPACOL) 1 Lozenge MUCOUS MEMBRANE (TOPICAL MOUTH AND THROAT) q 2 H PRN - lactated ringers iv infusion 125 mL/hr INTRAVENOUS CONTINUOUS - metoprolol succinate ER 50 mg tab(s) (TOPROL XL) 50 mg ORAL AT BEDTIME - methylPREDNISolone sod succinate(PF) 60 mg injection (SOLU-Medrol) 60 mg INTRAVENOUS q 6 H - metroNIDAZOLE iv piggyback 500 mg in NaCl (iso-osmotic) 100 mL (FLAGYL) 500 mg INTRAVENOUS q 8 H - piperacillin-tazobacta m iv piggyback 3.375 g in dextrose (iso-osmotic) 50 mL (ZOSYN) 3.375 g INTRAVENOUS q 8 H PAST MEDICAL HISTORY Diagnosis Date - Anemia - B12 deficiency 06/30/2018 - Calculus of kidney 11/23/2017 left ureterolithiasis - Crohn's disease of small intestine with complication (HCC) 03/02/2017 - DDD (degenerative disc disease), cervical 02/04/2018 on MRI - DDD (degenerative disc disease), lumbar 02/04/2018 on MRI - H/O right hemicolectomy 07/2000 - Hemorrhoids - HTN (hypertension) - Iron deficiency anemia due to chronic blood loss 10/08/2018 - Obesity, Class II, BMI 35-39.9 06/30/2018 - Proximal limb muscle weakness 02/04/2018 neg. myositis, vasculitis, Lyme, WNV, GBS work up. - Tachycardia 02/21/2018 - Vitamin D deficiency 06/30/2018 PAST SURGICAL HISTORY Procedure Laterality Date - COLECTO (more content not included)... [facility] CONSULT HNO ID: [id number] Author: Mk Sanchez MD Service: Gastroenterology Author Type: Physician Type: Consults Filed: 01/03/2021 9:57 AM Note Text: CONSULT: GASTROENTEROLOGY SERVICE SERVICE DATE: 01/03/2021 SERVICE TIME: 9:43 AM REASON FOR CONSULT: abdominal pain REQUESTING PHYSICIAN: Svitlana Lopez Chief complaint:abdominal pain; abnormal MRI abdomen Annabella Chapa is a 40 year old male who presents for: HPI:The patient is known to have Crohn's disease; s/p partial ileocolectomy with recurrent active disease/stricturing proximal to the surgical anastomosis; recently seen in office with right sided abdominal pain; Flagyl was added to his other medications for Crohn's disease which include Entyvio infusions every 2 months and Budesonide 9 mg daily. MRE showed possible abscess and fistula formation around distal ileum and surgical anastomosis. The patient denies any recent fever or chills; abdominal pain has actually better recently; denies any nausea or vomiting; diarrhea or constipation. COMPLETE REVIEW OF SYSTEMS: PAIN ASSESSMENT: Negative for pain GENERAL: No weight loss, malaise or fevers HEAD AND NECK: No headache, swollen glands PULMONARY: No cough, wheezing, dyspnea on exertion, or shortness of breath CARDIOVASCULAR: No chest pain, palpitations ABDOMINAL: Per HPI NEUROLOGIC: No dizziness, lightheadedness, or weakness OPHTHALMOLOGIC: No visual abnormalities MUSCULOSKELETAL: No pain, weakness, or leg swelling SKIN: No rash OBJECTIVE PHYSICAL EXAM: 01/02/21194801/02/21195001/03/21 0030 01/03/21 0812 BP: 147/105 140/92 149/91 Pulse: 100 78 77 Resp: 16 16 18 Temp: 36.9 ?C (98.4 ?F) 36.7 ?C (98.1 ?F) 36.7 ?C (98.1 ?F) TempSrc: Oral Oral Oral SpO2: 97% 97% 97% Weight: 111.1 kg (245 lb) Height: 172.7 cm (5' 8) Estimated body mass index is 37.25 kg/m? as calculated from the following: Height as of this encounter: 172.7 cm (5' 8). Weight as of this encounter: 111.1 kg (245 lb). GENERAL: Alert, no distress, cooperative HEENT: PERRLA, normocephalic, no thyromegaly, no lymphadenopathy, trachea centrally located CHEST: Clear to auscultation and percussion bilaterally CVS: RRR, no murmur/gallop ABD: soft, minimal TTP RLQ and right flank areas, no mass, BS present NEURO: Cranial nerves intact, no lateralizing neurologic signs MSK: No wasting, no weakness EXT: No edema, no deformity SKIN: No jaundice, no rash Record Review: [facility] / Outside records reviewed. PAST MEDICAL HISTORY Diagnosis Date - Anemia - B12 deficiency 06/30/2018 - Calculus of kidney 11/23/2017 left ureterolithiasis - Crohn's disease of small intestine with complication (HCC) 03/02/2017 - DDD (degenerative disc disease), cervical 02/04/2018 on MRI - DDD (degenerative disc disease), lumbar 02/04/2018 on MRI - H/O right hemicolectomy 07/2000 - Hemorrhoids - HTN (hypertension) - Iron deficiency anemia due to chronic blood loss 10/08/2018 - Obesity, Class II, BMI 35-39.9 06/30/2018 - Proximal limb muscle weakness 02/04/2018 neg. myositis, vasculitis, Lyme, WNV, GBS work up. - Tachycardia 02/21/2018 - Vitamin D deficiency 06/30/2018 PAST SURGICAL HISTORY Procedure Laterality Date - COLECTOMY PARTIAL W ANASTOM Right 07/2000 Right hemicolectomy [facility] - COLONOSCOPY 05/11/2016 Grade 1 internal hemorrhoids, severe inflammation at surgical site - COLONOSCOPY 06/23/2005 Crohn's activity at ileocolonic anastamosis - COLONOSCOPY 09/17/2006 Persistent surgical anastomotic stricture.Significant inflammation and ulceration on ileal side of anastomosis - COLONOSCOPY 05/25/2018 Stenosis of ileocolonic anastomosis, Crohn's disease, hemorrhoids, markedly ulcerated colonic mucosa - COLONOSCOPY 02/03/2019 chronic active colitis - EGD 02/03/2019 cervical inlet patch, minimal active inflammation - PAST SURGICAL HISTORY OF 1998 left ankle broken, screws Allergies: ALLERGIES Allergen Reactions - Ciprofloxacin Intolerance Hallucination Medications: losartan (COZAAR) 100 mg tablet Take 1 tablet by mouth once daily. metoprolol succinate ER (TOPROL XL) 50 mg 24 hr tablet Take 1 tablet by mouth once daily. vedolizumab (ENTYVIO) 300 mg injection 300mg Intravenous every 8 weeks. budesonide, enteric coated (ENTOCORT EC) 3 mg 24 hr capsule Take 3 capsules by mouth once daily. dilTIAZem CD (CARTIA XT) 300 mg 24 hr capsule Take 1 capsule by mouth once daily. ergocalciferol 50,000 unit capsule (VITAMIN D2, DRISDOL) TAKE 1 CAPSULE BY MOUTH ONE TIME A WEEK. cyanocobalamin 1,000 mcg/mL INJECT 1 ML INTRAMUSCULARLY ONCE EVERY MONTH. omeprazole (PRILOSEC) 40 mg capsule Take 1 capsule by mouth once daily as needed. docusate sodium (COLACE ORAL) Take by mouth once daily. metroNIDAZOLE (FLAGYL) 250 mg tablet Take 1 tablet by mouth three times daily. glucagon (GLUCAGEN) 1 mg/mL injection 1 mg one time only for 1 dose. For MRI Enterography, Inject 1 mg intrave (more content not included)... [facility] HISTORY PHYSICALon HISTORY PHYSICAL HNO ID: [id number] Author: Libra Lopez APRN.DOORS PREFITTER Service: Hospital Medicine Author Type: Nurse Practitioner Type: HANDP Filed: 01/02/2021 10:28 PM Note Text: DEPARTMENT OF HOSPITAL MEDICINE HISTORY AND PHYSICAL EXAM SERVICE DATE: 01/02/2021 SERVICE TIME: 10:19 PM Primary Care Physician: Edwin Kumar, DO NIGHT AND WEEKEND COVERAGE: After 7pm call #[phone] Chief complaint: abnormal MRI HPI: This is a 40 year old male with PMHx of Crohn's disease, HTN and tachycardia. He presented for admission after being told by Dr. Sanchez to come in for antibiotics. He had a MRI yesterday and was found to have a Crohn's exacerbation with enlarged abscess. On exam patient states he feels well. He has some abd tenderness that he considers his baseline. He has intermittent constipation. He has no other complaints at this time. Denies headache, dizziness, chest pain, SOB, cough, fever/chills, or N/V/D. PAST MEDICAL HISTORY Diagnosis Date - Anemia - B12 deficiency 06/30/2018 - Calculus of kidney 11/23/2017 left ureterolithiasis - Crohn's disease of small intestine with complication (HCC) 03/02/2017 - DDD (degenerative disc disease), cervical 02/04/2018 on MRI - DDD (degenerative disc disease), lumbar 02/04/2018 on MRI - H/O right hemicolectomy 07/2000 - Hemorrhoids - HTN (hypertension) - Iron deficiency anemia due to chronic blood loss 10/08/2018 - Obesity, Class II, BMI 35-39.9 06/30/2018 - Proximal limb muscle weakness 02/04/2018 neg. myositis, vasculitis, Lyme, WNV, GBS work up. - Tachycardia 02/21/2018 - Vitamin D deficiency 06/30/2018 PAST SURGICAL HISTORY Procedure Laterality Date - COLECTOMY PARTIAL W ANASTOM Right 07/2000 Right hemicolectomy [facility] - COLONOSCOPY 05/11/2016 Grade 1 internal hemorrhoids, severe inflammation at surgical site - COLONOSCOPY 06/23/2005 Crohn's activity at ileocolonic anastamosis - COLONOSCOPY 09/17/2006 Persistent surgical anastomotic stricture.Significant inflammation and ulceration on ileal side of anastomosis - COLONOSCOPY 05/25/2018 Stenosis of ileocolonic anastomosis, Crohn's disease, hemorrhoids, markedly ulcerated colonic mucosa - COLONOSCOPY 02/03/2019 chronic active colitis - EGD 02/03/2019 cervical inlet patch, minimal active inflammation - PAST SURGICAL HISTORY OF 1998 left ankle broken, screws FAMILY HISTORY Problem Relation Age of Onset - Colon Cancer Paternal Uncle 55 - Breast Cancer Maternal Aunt - Cancer Maternal Grandfather renal cancer - No Known Problems Mother - Coronary Artery Disease Father 72 CABG - Hypertension Father - No Known Problems Brother - No Known Problems Maternal Grandmother - No Known Problems Paternal Grandmother - Alzheimer's Disease Paternal Grandfather Social History Tobacco Use - Smoking status: Former Smoker Years: 2.00 - Smokeless tobacco: Never Used - Tobacco comment: Temporary smoker during college Vaping Use - Vaping Use: Never used Substance Use Topics - Alcohol use: Yes Comment: occasional - Drug use: Never HOME MEDICATIONS: Prior to Admission Medications Prescriptions Last Dose Informant Patient Reported? Taking? budesonide, enteric coated (ENTOCORT EC) 3 mg 24 hr capsule No Yes Sig: Take 3 capsules by mouth once daily. cyanocobalamin 1,000 mcg/mL No Yes Sig: INJECT 1 ML INTRAMUSCULARLY ONCE EVERY MONTH. Patient taking differently: Inject 1,000 mcg intramuscularly once every month. First of the month dilTIAZem CD (CARTIA XT) 300 mg 24 hr capsule No Yes Sig: Take 1 capsule by mouth once daily. docusate sodium (COLACE ORAL) Yes Yes Sig: Take by mouth once daily. ergocalciferol 50,000 unit capsule (VITAMIN D2, DRISDOL) No Yes Sig: TAKE 1 CAPSULE BY MOUTH ONE TIME A WEEK. Patient taking differently: Take 50,000 Units by mouth one time a week. Wednesday glucagon (GLUCAGEN) 1 mg/mL injection No No Si mg one time only for 1 dose. For MRI Enterography, Inject 1 mg intravenously, as directed. Slow push at the appropriate time during MRI Scan losartan (COZAAR) 100 mg tablet No Yes Sig: Take 1 tablet by mouth once daily. metoprolol succinate ER (TOPROL XL) 50 mg 24 hr tablet No Yes Sig: Take 1 tablet by mouth once daily. metroNIDAZOLE (FLAGYL) 250 mg tablet No No Sig: Take 1 tablet by mouth three times daily. omeprazole (PRILOSEC) 40 mg capsule No Yes Sig: Take 1 capsule by mouth once daily as needed. vedolizumab (ENTYVIO) 300 mg injection No Yes Simg Intravenous every 8 weeks. Facility-Administered Medications Last Administration Doses Remaining perflutren lipid microspheres 1.3 mL in NaCl (PF) 0.9% 10 mL injection (DEFINITY) None recorded 1 sodium chloride 0.9 % (flush) 10 mL (BD POSIFLUSH) None recorded 1 ALLERGIES Allergen Reactions - Ciprofloxacin Intolerance Hallucination REVIEW OF SYSTEM: All systems reviewed and negative except as stated in HPI PHYSICAL EXAM: BP 147/105 Pulse 100 (more content not included)... Normal [facility] 2019 CORONAVIRUSon 1 SARS-CoV-2 (COVID-19) RNA VEL+probe Ql (Unsp spec) COVID 19 SOURCE OIL PAINT SHADER: UPPER RESPIRATORY TRACT SWAB COVID 19 RESULT OIL PAINT SHADER: Negative for COVID19 (SARS CoV2) by RT-PCR or equivalent method. This test was developed and its performance characteristics determined by [facility]'s [facility] [place]. This test has been authorized by FDA under an Emergency Use Authorization (EUA). This test has been validated in accordance with the FDA's Guidance Document Policy for Diagnostics Testing in Laboratories Certified to Perform High Complexity Testing under CLIA prior to Emergency use Authorization for Coronavirus Disease 2019 during the Public Health Emergency issued on July 29, 2019. Test performed by [facility], [facility] [place], [address] [address]. Normal [facility] Comment on above: Performed By: #### C OVID ####[facility] LABCLIA [id number] [facility] [id number] [address] [place] Bilirub Conj SerPl-mCncon Bilirubin.conjugated [Mass/Vol] mg/dL Normal <0.2 [facility] Comment on above: Order Comment: Speci men Type: BLOOD SPECIMEN Performed By: #### 1 988-5, 42062-8 #### [facility] CLIA [id number] [address] [place] [address] [place] CBC W Auto Differential pane l (Bld)on 01-02-2021 Basophils (Bld) [#/Vol] 10*3/uL Normal <0.11 [facility] Comment on above: Order Comment: Speci men Type: BLOOD SPECIMEN Performed By: #### 1 988-5, #### [facility] CLIA [id number] [address] Basophils/100 WBC (Bld) 0.1 % Normal [facility] Comment on above: Order Comment: Speci men Type: BLOOD SPECIMEN Performed By: #### 1 988-, #### [facility] CLIA [id number] [address] Differential cell count method Nom (Bld) Auto Normal [facility] Comment on above: Order Comment: Speci men Type: BLOOD SPECIMEN Performed By: #### 1 988-, #### [facility] CLIA [id number] [address] Eosinophils (Bld) [#/Vol] 10*3/uL Normal <0.46 [facility] Comment on above: Order Comment: Speci men Type: BLOOD SPECIMEN Performed By: #### 1 988, #### [facility] CLIA [id number] [address] Eosinophils/100 WBC (Bld) 0.0 % Normal [facility] Comment on above: Order Comment: Speci men Type: BLOOD SPECIMEN Performed By: #### 1 988-, #### [facility] CLIA [id number] [address] [place] [address] Erythrocyte distribution width (RBC) [Ratio] 18.7 % High 11.5-15.0 [facility] Comment on above: Order Comment: Speci men Type: BLOOD SPECIMEN Performed By: #### 1 988-, #### [facility] CLIA [id number] [address] Hematocrit (Bld) [Volume fraction] 39.3 % Normal 39.0-51.0 [facility] Comment on above: Order Comment: Speci men Type: BLOOD SPECIMEN Performed By: #### 1 988-5, #### [facility] CLIA [id number] [address] Hemoglobin (Bld) [Mass/Vol] 12.9 g/dL Low 13.0-17.0 [facility] Comment on above: Order Comment: Speci men Type: BLOOD SPECIMEN Performed By: #### 1 988-5, #### [facility] CLIA [id number] [address] IMMATURE GRAN % 1.4 % Normal [facility] Comment on above: Order Comment: Speci men Type: BLOOD SPECIMEN Performed By: #### 1 988-5, #### [facility] CLIA [id number] [address] IMMATURE GRAN ABS 0.14 k/uL High <0.10 [facility] Comment on above: Order Comment: Speci men Type: BLOOD SPECIMEN Performed By: #### 1 988-5, #### [facility] CLIA [id number] [address] Lymphocytes (Bld) [#/Vol] 0.70 10*3/uL Low 1.00-4.00 [facility] Comment on above: Order Comment: Speci men Type: BLOOD SPECIMEN Performed By: #### 1 988-5, #### [facility] CLIA [id number] [address] Lymphocytes/100 WBC (Bld) 7.1 % Normal [facility] Comment on above: Order Comment: Speci men Type: BLOOD SPECIMEN Performed By: #### 1 988-5, #### [facility] CLIA [id number] [address] MCH (RBC) [Entitic mass] 26.5 pg Normal 26.0-34.0 [facility] Comment on above: Order Comment: Speci men Type: BLOOD SPECIMEN Performed By: #### 1 988-5, #### [facility] CLIA [id number] [address] MCHC (RBC) [Mass/Vol] 32.8 g/dL Normal 30.5-36.0 [facility] Comment on above: Order Comment: Speci men Type: BLOOD SPECIMEN Performed By: #### 1 988-5, #### [facility] CLIA [id number] [address] MCV (RBC) [Entitic vol] 80.9 fL Normal 80.0-100.0 [facility] Comment on above: Order Comment: Speci men Type: BLOOD SPECIMEN Performed By: #### 1 988-5, #### [facility] CLIA [id number] [address] Monocytes (Bld) [#/Vol] 0.67 10*3/uL Normal <0.87 [facility] Comment on above: Order Comment: Speci men Type: BLOOD SPECIMEN Performed By: #### 1 988-5, #### [facility] CLIA [id number] [address] Monocytes/100 WBC (Bld) 6.8 % Normal [facility] Comment on above: Order Comment: Speci men Type: BLOOD SPECIMEN Performed By: #### 1 988-5, #### [facility] CLIA [id number] [address] Neutrophils (Bld) [#/Vol] 8.28 10*3/uL High 1.45-7.50 [facility] Comment on above: Order Comment: Speci men Type: BLOOD SPECIMEN Performed By: #### 1 988-5, #### [facility] CLIA [id number] [address] Neutrophils/100 WBC (Bld) 84.6 % Normal [facility] Comment on above: Order Comment: Speci men Type: BLOOD SPECIMEN Performed By: #### 1 988-5, #### [facility] CLIA [id number] [address] Nucleated RBC (Bld) [#/Vol] 10*3/uL Normal <0.01 [facility] Comment on above: Order Comment: Speci men Type: BLOOD SPECIMEN Performed By: #### 1 988-5, #### [facility] CLIA [id number] [address] Nucleated RBC/100 WBC (Bld) [Ratio] 0.0 /100 WBC Normal 0.0 [facility] Comment on above: Order Comment: Speci men Type: BLOOD SPECIMEN Performed By: #### 1 988-5, #### [facility] CLIA [id number] [address] Platelet mean volume (Bld) [Entitic vol] 9.1 fL Normal 9.0-12.7 [facility] Comment on above: Order Comment: Speci men Type: BLOOD SPECIMEN Performed By: #### 1 988-5, #### [facility] CLIA [id number] [address] Platelets (Bld) [#/Vol] 179 10*3/uL Normal 150-400 [facility] Comment on above: Order Comment: Speci men Type: BLOOD SPECIMEN Performed By: #### 1 988-5, #### [facility] CLIA [id number] [address] RBC (Bld) [#/Vol] 4.86 10*6/uL Normal 4.20-6.00 [facility] Comment on above: Order Comment: Speci men Type: BLOOD SPECIMEN Performed By: #### 1 988-5, 02354-3 #### [facility] CLIA [id number] [address] WBC (Bld) [#/Vol] 9.80 10*3/uL Normal 3.70-11.00 [facility] Comment on above: Order Comment: Speci men Type: BLOOD SPECIMEN Performed By: #### 1 988-5, 53021-3 #### [facility] CLIA [id number] [address] Comprehensive metabolic 2000 panelon 01-02-2021 Albumin [Mass/Vol] 4.1 g/dL Normal 3.9-4.9 [facility] Comment on above: Order Comment: Speci men Type: BLOOD SPECIMEN Performed By: #### 1 988-5, 29228-4 #### [facility] CLIA [id number] [address] [place] [address] ALP [Catalytic activity/Vol] 74 U/L Normal 38-113 [facility] Comment on above: Order Comment: Speci men Type: BLOOD SPECIMEN Performed By: #### 1 988-5, 00242-4 #### [facility] CLIA [id number] [address] ALT With P-5'-P [Catalytic activity/Vol] 30 U/L Normal 10-54 [facility] Comment on above: Order Comment: Speci men Type: BLOOD SPECIMEN Performed By: #### 1 988-5, 39795-4 #### [facility] CLIA [id number] [address] Anion gap [Moles/Vol] 11 mmol/L Normal 9-18 [facility] Comment on above: Order Comment: Speci men Type: BLOOD SPECIMEN Performed By: #### 1 988-5, 02576-1 #### [facility] CLIA [id number] [address] AST With P-5'-P [Catalytic activity/Vol] 14 U/L Normal 14-40 [facility] Comment on above: Order Comment: Speci men Type: BLOOD SPECIMEN Performed By: #### 1 988-5, #### [facility] CLIA [id number] [address] Bilirubin [Mass/Vol] 0.8 mg/dL Normal 0.2-1.3 [facility] Comment on above: Order Comment: Speci men Type: BLOOD SPECIMEN Performed By: #### 1 988-5, #### [facility] CLIA [id number] [address] Calcium [Mass/Vol] 9.4 mg/dL Normal 8.5-10.2 [facility] Comment on above: Order Comment: Speci men Type: BLOOD SPECIMEN Performed By: #### 1 988-5, #### [facility] CLIA [id number] [address] Chloride [Moles/Vol] 106 mmol/L High 97-105 [facility] Comment on above: Order Comment: Speci men Type: BLOOD SPECIMEN Performed By: #### 1 988-5, #### [facility] CLIA [id number] [address] CO2 [Moles/Vol] 24 mmol/L Normal 22-30 [facility] Comment on above: Order Comment: Speci men Type: BLOOD SPECIMEN Performed By: #### 1 988-5, #### [facility] CLIA [id number] [address] Creatinine [Mass/Vol] 1.09 mg/dL Normal 0.73-1.22 [facility] Comment on above: Order Comment: Speci men Type: BLOOD SPECIMEN Performed By: #### 1 988-5, #### [facility] CLIA [id number] [address] GFR/1.73 sq M.predicted MDRD (S/P/Bld) [Vol rate/Area] mL/min/{1.73_m2} Normal [facility] Comment on above: Order Comment: Speci men Type: BLOOD SPECIMEN Result Comment: >60 eGFR (Estimated GFR) Units of measure: mL/min/1.73 [...] accurately reflect actual GFR. Performed By: #### 1 988-5, 13030-1 #### [facility] CLIA [id number] 1 [place] [address] [place] Glucose [Mass/Vol] 93 mg/dL Normal 74-99 [facility] Comment on above: Order Comment: Speci [facility] Type: BLOOD SPECIMEN Result Comment: The [place] [employer] Association (ADA) provides guidance for cutoff values for fasting glucose and random glucose. The ADA defines fasting as no caloric intake for at least 8 hours. Fasting plasma glucose results between 100 to 125 [...] Standards of Medical Care in Diabetes 2016, [place] [employer]. Diabetes Care. 2016.39(Suppl 1). Performed By: #### 1 988-5, 99032-3 #### [facility] CLIA [id number] [address] [place] [address] [place] Potassium [Moles/Vol] 4.2 mmol/L Normal 3.7-5.1 [facility] Comment on above: Order Comment: Speci [facility] Type: BLOOD SPECIMEN Performed By: #### 1 988-5, 20121-4 #### [facility] CLIA [id number] [address] [facility] Protein [Mass/Vol] 6.3 g/dL Normal 6.3-8.0 [facility] Comment on above: Order Comment: Speci men Type: BLOOD SPECIMEN Performed By: #### 1 988-5, 16170-4 #### [facility] CLIA [id number] [address] Sodium [Moles/Vol] 141 mmol/L Normal 136-144 [facility] Comment on above: Order Comment: Speci men Type: BLOOD SPECIMEN Performed By: #### 1 988-5, 16055-8 #### [facility] CLIA [id number] [address] Urea nitrogen [Mass/Vol] 17 mg/dL Normal 9-24 [facility] Comment on above: Order Comment: Speci men Type: BLOOD SPECIMEN Performed By: #### 1 988-5, 62424-4 #### [facility] CLIA [id number] [address] [place] CBC W/Diff, Automatedon 04-0 7-2020 Absolute Lymph 0.73 X10 3/uL Low 0.83-4.51 [facility] Comment on above: Performed By: #### L 504.2610, L100.0100, L503.6030, L503.6550 #### [facility] [address] [place], [address] Absolute Neut 13.7 X10 3/uL High 2.0-7.7 [facility] Comment on above: Performed By: #### L 504.2610, L100.0100, L503.6030, L503.6550 #### [facility] [address] [place], [address] Basophils/100 WBC (Bld) 0.3 % Normal 0-1 [facility] Comment on above: Performed By: #### L 504.2610, L100.0100, L503.6030, L503.6550 #### [facility] [address] [place], [address] Eosinophils/100 WBC (Bld) 0.1 % Normal 0-5 [facility] Comment on above: Performed By: #### L 504.2610, L100.0100, L503.6030, L503.6550 #### [facility] [address] [place], [address] Erythrocyte distribution width (RBC) [Ratio] 18.6 % High 11.6-14.6 [facility] Comment on above: Performed By: #### L 504.2610, L100.0100, L503.6030, L503.6550 #### [facility] [address] [place], [address] Hematocrit (Bld) [Volume fraction] 44.5 % Normal 40-54 [facility] Comment on above: Performed By: #### L 504.2610, L100.0100, L503.6030, L503.6550 #### [facility] [address] [place], [address] Hemoglobin (Bld) [Mass/Vol] 13.8 g/dL Normal 13.0-16.5 [facility] Comment on above: Performed By: #### L 504.2610, L100.0100, L503.6030, L503.6550 #### [facility] [address] [place], [address] IG% 0.900 Normal 0.0-0.9 [facility] Comment on above: Result Comment: IG% - Immature Granulocytes (promyelocytes, myelocytes and metamyelocytes) > 1% indicates that a LEFT SHIFT is Present. Performed By: #### L 504.2610, L100.0100, L503.6030, L503.6550 #### [facility] [address] [place], [address] Lymphocytes/100 WBC (Bld) 4.8 % Low 19-41 [facility] Comment on above: Performed By: #### L 504.2610, L100.0100, L503.6030, L503.6550 #### [facility] [address] [place], [address] MCH (RBC) [Entitic mass] 24.6 pg Low 27.0-32.0 [facility] Comment on above: Performed By: #### L 504.2610, L100.0100, L503.6030, L503.6550 #### [facility] [address] [place], [address] MCHC (RBC) [Mass/Vol] 31.0 g/dL Low 32-36 [facility] Comment on above: Performed By: #### L 504.2610, L100.0100, L503.6030, L503.6550 #### [facility] [address] [place], [address] MCV (RBC) [Entitic vol] 79.2 fL Low 80-94 [facility] Comment on above: Performed By: #### L 504.2610, L100.0100, L503.6030, L503.6550 #### [facility] [address] [place], [address] Monocytes/100 WBC (Bld) 3.9 % Normal 0-10 [facility] Comment on above: Performed By: #### L 504.2610, L100.0100, L503.6030, L503.6550 #### [facility] [address] [place], [address] Neutrophils/100 WBC (Bld) 90.0 % High 47-70 [facility] Comment on above: Performed By: #### L 504.2610, L100.0100, L503.6030, L503.6550 #### [facility] [address] [place], [address] Nucleated RBC (Bld) [#/Vol] 0 10*3/uL Normal 0-5 [facility] Comment on above: Performed By: #### L 504.2610, L100.0100, L503.6030, L503.6550 #### [facility] [address] [place], [address] Platelet mean volume (Bld) [Entitic vol] 9.2 fL Normal 6.2-12.0 [facility] Comment on above: Performed By: #### L 504.2610, L100.0100, L503.6030, L503.6550 #### [facility] [address] [place], [address] Platelets (Bld) [#/Vol] 240 10*3/uL Normal 150-450 [facility] Comment on above: Performed By: #### L 504.2610, L100.0100, L503.6030, L503.6550 #### [facility] [address] [place], [address] RBC (Bld) [#/Vol] 5.62 10*6/uL Normal 4.6-6.2 [facility] Comment on above: Performed By: #### L 504.2610, L100.0100, L503.6030, L503.6550 #### [facility] [address] [place], [address] RDW SD 50.7 fl High 35.1-43.9 [facility] Comment on above: Performed By: #### L 504.2610, L100.0100, L503.6030, L503.6550 #### [facility] [address] [place], [address] WBC (Bld) [#/Vol] 15.2 10*3/uL High 4.4-11.0 [facility] Comment on above: Performed By: #### L 504.2610, L100.0100, L503.6039, L503.6507 #### [facility] [address] [place], [address] Comprehensive Metabolic Prof ilon 09-04-2020 Albumin [Mass/Vol] 3.8 g/dL Normal 3.2-5.0 [facility] Comment on above: Performed By: #### L 500.4050 #### [facility] [address] [place], [address] Albumin/Globulin [Mass ratio] 1.0 {ratio} Normal 0.9-2.4 [facility] Comment on above: Performed By: #### L 500.4050 #### [facility] [address] [place], [address] ALK P 77 U/L Normal 45-117 [facility] Comment on above: Performed By: #### L 500.4050 #### [facility] [address] [place], [address] ALT [Catalytic activity/Vol] 26 U/L Normal 16-61 [facility] Comment on above: Performed By: #### L 500.4050 #### [facility] [address] [place], [address] AST [Catalytic activity/Vol] 6 U/L Low 15-37 [facility] Comment on above: Performed By: #### L 500.4050 #### [facility] [address] [place], [address] Bilirubin [Mass/Vol] 0.80 mg/dL Normal 0.20-1.00 [facility] Comment on above: Result Comment: For patients on eltrombopag therapy, use of Dimension [place] TBIL is not recommended. Performed By: #### L 500.4050 #### [facility] [address] [place], [address] BUN/CRE 14.5 RATIO Normal 10-20 [facility] Comment on above: Performed By: #### L 500.4050 #### [facility] [address] [place], [address] CA,Total 9.1 mg/dL Normal 8.5-10.1 [facility] Comment on above: Performed By: #### L 500.4050 #### [facility] [address] [place], [address] Chloride [Moles/Vol] 107 mmol/L Normal 98-107 [facility] Comment on above: Performed By: #### L 500.4050 #### [facility] [address] [place], [address] CO2 [Moles/Vol] 27.0 mmol/L Normal 21.0-32.0 [facility] Comment on above: Performed By: #### L 500.4050 #### [facility] [address] [place], [address] Creatinine [Mass/Vol] 1.31 mg/dL High 0.70-1.30 [facility] Comment on above: Result Comment: The validity of the calculated GFR GFRAA in patients over 70 years has not been determined. Clinical correlation is essential. Performed By: #### L 500.4050 #### [facility] [address] [place], [address] ECRCL 72.52 ml/min Normal [facility] Comment on above: Performed By: #### L 500.4050 #### [facility] [address] [place], [address] EST GFR - AA 78 mL/min Normal >60 [facility] Comment on above: Result Comment: Afri can [place] GFR Calc Performed By: #### L 500.4050 #### [facility] [address] [place], [address] GAP 4 Low 5-15 [facility] Comment on above: Performed By: #### L 500.4050 #### [facility] [address] [place], [address] GFR/1.73 sq M.predicted among non-blacks MDRD (S/P/Bld) [Vol rate/Area] 64 mL/min/{1.73_m2} Normal >60 [facility] Comment on above: Result Comment: Non- GFR Calc Performed By: #### L 500.4050 #### [facility] [address] [place], [address] Globulin (S) [Mass/Vol] 3.7 g/dL Normal 2.2-4.2 [facility] Comment on above: Performed By: #### L 500.4050 #### [facility] [address] [place], [address] Glucose [Mass/Vol] 100 mg/dL Normal 74-106 [facility] Comment on above: Result Comment: Fast ing Glucose result from 100 to 125 mg/dL suggests IMPAIRED HOMEOSTASIS per A.D.A. criteria. Please note revised GLUCOSE reference range effective 2017. Performed By: #### L 500.4050 #### [facility] [address] [place], [address] Potassium [Moles/Vol] 3.9 mmol/L Normal 3.5-5.1 [facility] Comment on above: Performed By: #### L 500.4050 #### [facility] [address] [place], [address] Sodium [Moles/Vol] 138 mmol/L Normal 136-145 [facility] Comment on above: Performed By: #### L 500.4050 #### [facility] [address] [place], [address] T PROT 7.5 g/dL Normal 6.4-8.2 [facility] Comment on above: Performed By: #### L 500.4050 #### [facility] [address] [place], [address] Urea nitrogen [Mass/Vol] 19 mg/dL High 7-18 [facility] Comment on above: Performed By: #### L 500.4050 #### [facility] [address] [place], [address] Ferritinon 09-04-2020 Ferritin [Mass/Vol] 74 ng/mL Normal 26-388 [facility] Comment on above: Order Comment: N1 Performed By: #### L 504.2610, L100.0100, L503.6030, L503.6550 ####[facility] [id number] [place], [address] Iron+Iron Binding Capacityon 09-04-2020 Iron [Mass/Vol] 47 ug/dL Low 65-175 [facility] Comment on above: Order Comment: N 1 Performed By: #### L 504.2610, L100.0100, L503.6030, L503.6550 #### [facility] [address] [place], [address] IRON SATURATION 13.0 Low 15.0-55.0 [facility] Comment on above: Order Comment: N 1 Performed By: #### L 504.2610, L100.0100, L503.6030, L503.6550 #### [facility] [address] [place], [address] TIBC 362 ug/dL Normal 250-450 [facility] Comment on above: Order Comment: N 1 Performed By: #### L 504.2610, L100.0100, L503.6030, L503.6550 #### [facility] [address] [place], [address] LDHon 09-04-2020 LDH 209 U/L Normal 87-241 [facility] Comment on above: Order Comment: N1 Performed By: #### L 504.2610, L100.0100, L503.6030, L503.6550 ####[facility] [id number] [place], [address] Oncology Visit Reporton 040 Oncology Visit Report [facility] [address] [place] [address] OFFICE VISIT Date of Service: 09/04/20 1506 MR#: [id number] Acct: [id number] Name: ANNABELLA CHAPA Rep #: [id number] : 1980 From: Fede Borges MD Age/Sex: 39/M Location: OMD Status: Signed Subjective - Date of Service Date of Service:: 09/04/20 - Chief Complaint F/u for Iron deficiency. - History of Present Illness 39y.o.man was diagnosed with Crohn's disease of the intestine, has had right hemicolectomy in July 2000. He has been found to have B12 and vitamin D deficiency and currently on replacement. He was found to have flare up of his disease and currently on infliximab. He was noted to be iron deficiency anemia and has been on oral iron supplements for several months with no improvements. He had blood work done on 04/26/2019, hemoglobin was 7.1, MCV 60. Iron profile on 01/20/2019 shows iron level 22, iron saturation 5%. He developed headache, dizziness and general malaise. He had colonoscopy on 02/03/[address] Sanchez which showed ulcerated and stenotic ileocolic colonic anastomosis related to Crohn's disease. He received IV Venofer 200mg daily x 7 then finished another 7 doses on 06/19/2019 with correction of anemia. He is off oral iron because of Crohn's disease exacerbation. Got another Venofer infusion in December 2019. Another Venofer infusion was done in May/Jul 2020. Comes in for follow up. - Past Medical/Social History Social History Social History: No changes Smoking Status Never smoker Review of Systems Constitutional:: Denies: Fever, Sweats, Weight loss, Appetite change, Chills Cardiovascular:: Denies: Chest pain, Palpitations, Dyspnea on exertion, Orthopnea, PND, Shortness of breath Respiratory: Denies: Cough, Hemoptysis, Shortness of Breath, Wheezing Gastrointestinal:: Denies: Abdominal pain, Nausea, Vomiting, Diarrhea, Constipation, Hematochezia Genitourinary: Denies: Dysuria, Hematuria, 15, Flank pain Musculoskeletal:: Denies: Back pain, Myalgia, Arthralgia Skin: Denies: Rash, Skin Changes, Wounds Neurological:: Denies: Headache, Dizziness, Visual changes, Tinnitus, Hearing loss Psychiatric: Denies: Anxiety, Depression, Homicidal Ideations, Suicidal Ideations Vital Signs Temperature 98.3 F 09/04/20 14:57 Temperature Source Temporal 09/04/20 14:57 Pulse Rate 85 09/04/20 14:57 Respiratory Rate 16 09/04/20 14:57 Respiratory Pattern Normal 07/03/20 13:10 Blood Pressure 155/107 H 09/04/20 14:57 Blood Pressure Mean 123 09/04/20 14:57 Blood Pressure Source Monitor 09/04/20 14:57 Blood Pressure Position Sitting 09/04/20 14:57 Blood Pressure Location Left Arm 09/04/20 14:57 Pulse Ox 95 09/04/20 14:57 Oxygen Delivery Method Room Air 09/04/20 14:57 - Physical Exam General: Alert, Oriented x3, No apparent distress HEENT: Atraumatic, PERRLA, EOMI, Normocephalic Oropharynx:: Dry mucosa Neck:: Supple, Trachea midline. Negative for: JVD, bilateral Cardiac:: Regular rate, Regular rhythm, Normal S1, Normal S2. Negative for: Murmur Lungs: Clear to auscultation, Excusion symmetrical. Negative for: Rhonchi, Wheezes Abdomen:: Bowel sounds x 4, Soft, Non-tender, Non-distended. Negative for: Hepatosplenomegaly Extremities:: Negative for: Cyanosis, Edema Neurological: Neuro grossly intact Skin:: Negative for: Lesions, Rash, Petechiae, Ecchymosis Psychiatric:: Appropriate affect, Euthymic Lymphatics:: Negative for: Cervical lymphadenopathy, Supraclavicular lymphadenopathy, Axillary lymphadenopathy Laboratory Data: Laboratory Tests 09/04/20 09/04/20 09/04/20 Range/Units 14:31 14:31 14:31 WBC 15.2 H (4.4-11.0) K/mm3 RBC 5.62 (4.6-6.2) M/mm3 Hgb 13.8 (13.0-16.5) g/dL Hct 44.5 (40-54) % MCV 79.2 L (80-94) fL MCH 24.6 L (27.0-32.0) pg MCHC 31.0 L (32-36) g/dL RDW Std Deviation 50.7 H (35.1-43.9) fl RDW Coeff of Demetrius 18.6 H (11.6-14.6) % Plt Count 240 (150-450) K/mm3 MPV 9.2 (6.2-12.0) fl Immature Gran % (Auto) 0.900 (0.0-0.9) % Neut % (Auto) 90.0 H (47-70) % Lymph % (Auto) 4.8 L (19-41) % [place] % (Auto) 3.9 (0-10) % Eos % (Auto) 0.1 (0-5) % Baso % (Auto) 0.3 (0-1) % Absolute Neuts (auto) 13.7 H (2.0-7.7) X10 3/uL Absolute Lymphs (auto) 0.73 L (0.83-4.51) X10 3/uL Nucleated RBC % 0 (0-5) % Sodium 138 (136-145) mmol/L Potassium 3.9 (3.5-5.1) mmol/L Chloride 107 (98-107) mmol/L Carbon Dioxide 27.0 (21.0-32.0) mmol/L Anion Gap 4 L (5-15) BUN 19 H (7-18) mg/dL Creatinine 1.31 H (0.70-1.30) mg/dL Estim Creat Clear Calc 72.52 ml/min Est GFR (MDRD) Af Amer 78 (>60) mL/min Est GFR (MDRD) Non-Af 64 (>60) mL/min BUN/Creatinine Ratio 14.5 (10-20) RATIO Glucose 100 (74-106) mg/dL Calcium 9.1 (8.5-10.1) mg/dL Iron 47 L (65-175) ug/dL TIBC 362 (250-450) ug/dL (more content not included)... Normal [facility] Surgical Tissue Examon 02-03 Surgical Tissue Exam Test performed at [place] [address] NAME: ANNABELLA CHAPA REQUESTING: MK SANCHEZ M.D. FINAL DIAGNOSIS: A) ESOPHAGUS, PROXIMAL, BIOPSY - SQUAMOUS AND GLANDULAR MUCOSA SHOWING MINIMAL ACTIVE INFLAMMATION, COMPATIBLE WITH CERVICAL INLET PATCH. B) ILEOCOLONIC ANASTOMOSIS, BIOPSY - ULCERATED COLONIC MUCOSA WITH CHRONIC ACTIVE COLITIS. NEGATIVE FOR GRANULOMAS, DYSPLASIA AND MALIGNANCY. OPERATIVE PROCEDURE: EGD, colonoscopy CLINICAL INFORMATION: Not given GROSS DESCRIPTION: A) Esophagus proximal Received in formalin labeled proximal esophagus biopsy is a white-gómez soft segment of tissue measuring 0.3 x 0.2 x 0.1 cm. The specimen is totally submitted in formalin in one cassette. B) Ileocolonic anastomosis bx Received in formalin labeled ileocolonic anastomosis biopsy are multiple gómez soft segments of tissue aggregating to 0.5 x 0.4 x 0.1 cm. The specimens are totally submitted in formalin in one cassette. KVB:tito NORRIS M.D.,PATHOLOGIST (Electronic signature on file) Signed out: 02/07/2019 10:55 PRINTED: 02/07/2019 Page 1 of 1 Normal [facility] Comment on above: Performed By: #### S URG #### [place] [address] Surgical Tissue Examon 05-25 Surgical Tissue Exam Test performed at [place] [address] NAME: ANNABELLA CHAPA REQUESTING: MK SANCHEZ M.D. FINAL DIAGNOSIS: COLON, [...] 08:44 PRINTED: 05/27/2018 Page 1 of 1 Normal [facility] Comment on above: Performed By: #### S URG #### [facility] [address] [place] [address] [address] ABDOMEN AND PELVIS WITH C ONTRAST [id number] 02-26-2018 CT ABDOMEN AND PELVIS WITH CONTRAST [id number] Performed at [facility] APPROVED BY: YOLANDA PEREZ MD EXAMINATION: [...] a short segment of prestenotic dilatation. Possible fistula to adjacent small bowel loops (4:38). No [...] possible fistula to adjacent small bowel loops Normal [facility] CT ENTEROGRAPHY W IVCONon CT ENTEROGRAPHY W IVCON * * *Final Report* * *DATE OF EXAM: Mar 06 2017 9:49AM [facility] 0545 - CT ENTEROGRAPHY W IVCON / REASON: crohns disease of small intestine with complication k60.019 * * * * Physician Interpretation * * * * CT ENTEROGRAPHYHISTORY: 36 years oldClinical information: crohns disease of small intestine with complication k60.019COMPARISON: NoneTECHNIQUE: CT scan of the abdomen and pelvis was performed utilizing standard technique. The data was reformatted into coronal projections.Contrast information:Contrast1: Omnipaque 300Contrast Dose1: 725LlusokeoZyazaKcnrz1 : IVContrast2: BreezaContrastDose2 : 1000ContrastAdminRoute 2: OralCT Dose-Length Product (DLP): 972.57 mGy*cm.CT Dose Reduction Employed: YesRESULT:GI Tract:Small Bowel: See discussion belowColon: Evidence of previous RIGHT hemicolectomy Colon is normal in caliber. Small amount of enhancing mucosa at the anastomotic site with small bowel. Strictures: There is an area of narrowing in the small bowel at the junction of the anastomosis of the small bowel with the colon.Narrowing extends for 4 cm. The kenny quite thickened. There is some enhancement in the wall in this area. Also also indistinctness in the surrounding fatty tissues seen in this area. Focal dilatation of the small bowel is seen just proximal to this area.There are a few subcentimeter lymph nodes in the small bowel mesentery adjacent to this areaFistulae/Sinus Tracts: No fistula or sinus tract is identified.Abscesses: None.Bones: UnremarkableLung bases: UnremarkableCT ABDOMEN FINDINGSLiver: Liver texture unremarkable. There is a 1.3 cm low-density lesion posterior segment RIGHT lobe of the liver image 36. Diffuse decrease in attenuation of the liver is compatible with fatty changes.Biliary tree: Common duct normal in size. No intrahepatic bile duct dilatation is seen.Pancreas: UnremarkableSpleen: Spleen normal size. 2 splenules are noted.Adrenals: Normal size.Kidneys: Are seen to function bilaterally. No focal abnormalities.Lymph nodes: As aboveMesentery/Periton eum: No enlarged lymph nodes or other abnormalities..Retrope ritoneum: The aorta is normal in size. Otherwise unremarkable.CT PELVIS FINDINGS:Lymph Nodes: As aboveUrinary bladder: UnremarkableIMPRESSION :1. There is a 4 cm area of narrowing in the distal small bowel at the anastomotic site. There is enhancement of the wall and some indistinctness in the surrounding fatty tissues. Mild focal dilatation of the small bowel seen just proximal to this area.2. There is a 1.3 cm low density lesion in the liver ultrasound recommended.Transcript ionist: AZALEA Transcribe Date/Time: Mar 07 2017 1:32PDictated by : Gin FULLER examination was interpreted and the report reviewed and electronically signed by: EHSAN DARLING DO on Mar 07 2017 8:59PM [id number] Normal [facility] Vital Signs Date Time Vital Sign Value Performing Clinician Faci lity 12-25-2024 14:17-0400 Body mass index (BMI) [Ratio] 34.46 kg/m2 Treatment Wstr Work Phone: [facility] 12-25-2024 14:17-0400 Body temperature 97.81 [degF] Treatment Wstr Work Phone: [facility] 12-25-2024 14:17-0400 Body weight 102.8 kg Treatment Wstr Work Phone: [facility] 12-25-2024 14:17-0400 Diastolic blood pressure 79 mm[Hg] Treatment Wstr Work Phone: [facility] 12-25-2024 14:17-0400 Heart rate 92 /min Treatment Wstr Work Phone: [facility] 12-25-2024 14:17-0400 Respiratory rate 14 /min Treatment Wstr Work Phone: [facility] 12-25-2024 14:17-0400 SaO2% (BldA) [Mass fraction] 98 % Treatment Wstr Work Phone: [facility] 12-25-2024 14:17-0400 Systolic blood pressure 128 mm[Hg] Treatment Wstr Work Phone: [facility] 10-31-2024 14:18-0400 Body mass index (BMI) [Ratio] 34.36 kg/m2 Treatment Wstr Work Phone: [facility] 10-31-2024 14:18-0400 Body temperature 98.29 [degF] Treatment Wstr Work Phone: [facility] 10-31-2024 14:18-0400 Body weight 102.5 kg Treatment Wstr Work Phone: [facility] 10-31-2024 14:18-0400 Diastolic blood pressure 78 mm[Hg] Treatment Wstr Work Phone: [facility] 10-31-2024 14:18-0400 Heart rate 95 /min Treatment Wstr Work Phone: [facility] 10-31-2024 14:18-0400 Respiratory rate 16 /min Treatment Wstr Work Phone: [facility] 10-31-2024 14:18-0400 SaO2% (BldA) [Mass fraction] 96 % Treatment Wstr Work Phone: [facility] 10-31-2024 14:18-0400 Systolic blood pressure 116 mm[Hg] Treatment Wstr Work Phone: [facility] 10-04-2024 13:04-0400 Body height 172.7 cm Farida Sloan SAFETY ENGINEER [employer]DO[employer] PREFITTER Work Phone: [facility] 10-04-2024 13:04-0400 Body mass index (BMI) [Ratio] 34.36 kg/m2 Farida Sloan SAFETY ENGINEER [employer].DOORS PREFITTER Work Phone: [facility] 10-04-2024 13:04-0400 Body weight 102.51 kg Farida Sloan SAFETY ENGINEER [employer].DOORS PREFITTER Work Phone: [facility] 10-04-2024 13:04-0400 Diastolic blood pressure 62 mm[Hg] Farida Sloan SAFETY ENGINEER [employer]ORS PREFITTER Work Phone: [facility] 10-04-2024 13:04-0400 Heart rate 88 /min Farida Sloan APRN.DOORS PREFITTER Work Phone: [facility] 10-04-2024 13:04-0400 SaO2% (BldA) [Mass fraction] 97 % Farida Sloan SAFETY ENGINEER [employer]ORS PREFITTER Work Phone: [facility] 10-04-2024 13:04-0400 Systolic blood pressure 112 mm[Hg] Farida Sloan SAFETY ENGINEER [employer] PREFITTER Work Phone: [facility] 09-04-2024 14:38-0400 Body temperature 97.59 [degF] Treatment Wstr Work Phone: [facility] 09-04-2024 14:38-0400 Diastolic blood pressure 93 mm[Hg] Treatment Wstr Work Phone: [facility] 09-04-2024 14:38-0400 Heart rate 101 /min Treatment Wstr Work Phone: [facility] 09-04-2024 14:38-0400 SaO2% (BldA) [Mass fraction] 95 % Treatment Wstr Work Phone: [facility] 09-04-2024 14:38-0400 Systolic blood pressure 150 mm[Hg] Treatment Wstr Work Phone: [facility] 07-28-2024 11:07-0500 Body mass index (BMI) [Ratio] 35.53 kg/m2 Krislyn Aberegg PA Work Phone: [facility] 07-28-2024 11:07-0500 Body temperature 97.2 [degF] Krislyn Aberegg PA Work Phone: [facility] 07-28-2024 11:07-0500 Body weight 106 kg Krislyn Aberegg PA Work Phone: [facility] 07-28-2024 11:07-0500 Diastolic blood pressure 78 mm[Hg] Krislyn Aberegg PA Work Phone: [facility] 07-28-2024 11:07-0500 Heart rate 103 /min Krislyn Aberegg PA Work Phone: [facility] 07-28-2024 11:07-0500 Respiratory rate 16 /min Krislyn Aberegg PA Work Phone: [facility] 07-28-2024 11:07-0500 SaO2% (BldA) [Mass fraction] 97 % Krislyn Aberegg PA Work Phone: [facility] 07-28-2024 11:07-0500 Systolic blood pressure 116 mm[Hg] Krislyn Aberegg PA Work Phone: [facility] 07-10-2024 14:00-0500 Body temperature 97.59 [degF] Treatment Wstr Work Phone: [facility] 07-10-2024 14:00-0500 Diastolic blood pressure 80 mm[Hg] Treatment Wstr Work Phone: [facility] 07-10-2024 14:00-0500 Heart rate 82 /min Treatment Wstr Work Phone: [facility] 07-10-2024 14:00-0500 Systolic blood pressure 122 mm[Hg] Treatment Wstr Work Phone: [facility] 05-15-2024 14:18-0500 Body mass index (BMI) [Ratio] 36.44 kg/m2 Treatment Wstr Work Phone: [facility] 05-15-2024 14:18-0500 Body temperature 97.11 [degF] Treatment Wstr Work Phone: [facility] 05-15-2024 14:18-0500 Body weight 108.7 kg Treatment Wstr Work Phone: [facility] 05-15-2024 14:18-0500 Diastolic blood pressure 84 mm[Hg] Treatment Wstr Work Phone: [facility] 05-15-2024 14:18-0500 Heart rate 99 /min Treatment Wstr Work Phone: [facility] 05-15-2024 14:18-0500 Respiratory rate 16 /min Treatment Wstr Work Phone: [facility] 05-15-2024 14:18-0500 SaO2% (BldA) [Mass fraction] 98 % Treatment Wstr Work Phone: [facility] 05-15-2024 14:18-0500 Systolic blood pressure 124 mm[Hg] Treatment Wstr Work Phone: [facility] 04-05-2024 13:00-0500 Body mass index (BMI) [Ratio] 35.58 kg/m2 Farida Haagen SAFETY ENGINEER [employer] PREFITTER Work Phone: [facility] 04-05-2024 13:00-0500 Body weight 106.14 kg Farida Haagen SAFETY ENGINEER [employer] PREFITTER Work Phone: [facility] 04-05-2024 13:00-0500 Diastolic blood pressure 78 mm[Hg] Farida Sloan SAFETY ENGINEER [employer] PREFITTER Work Phone: [facility] 04-05-2024 13:00-0500 Heart rate 96 /min Farida Gibsonagen SAFETY ENGINEER [employer]ORS PREFITTER Work Phone: [facility] 04-05-2024 13:00-0500 Respiratory rate 16 /min Farida Haagen SAFETY ENGINEER [employer]ORS PREFITTER Work Phone: [facility] 04-05-2024 13:00-0500 SaO2% (BldA) [Mass fraction] 98 % Farida Sloan SAFETY ENGINEER [employer]ORS PREFITTER Work Phone: [facility] 04-05-2024 13:00-0500 Systolic blood pressure 124 mm[Hg] Farida Gibsonagen SAFETY ENGINEER [employer] PREFITTER Work Phone: [facility] 03-20-2024 14:00-0400 Body temperature 97.39 [degF] Treatment Wstr Work Phone: [facility] 03-20-2024 14:00-0400 Diastolic blood pressure 85 mm[Hg] Treatment Wstr Work Phone: [facility] 03-20-2024 14:00-0400 Heart rate 63 /min Treatment Wstr Work Phone: [facility] 03-20-2024 14:00-0400 Systolic blood pressure 131 mm[Hg] Treatment Wstr Work Phone: [facility] 01-24-2024 14:20-0400 Body mass index (BMI) [Ratio] 36.44 kg/m2 Treatment Wstr Work Phone: [facility] 01-24-2024 14:20-0400 Body temperature 98.71 [degF] Treatment Wstr Work Phone: [facility] 01-24-2024 14:20-0400 Body weight 108.7 kg Treatment Wstr Work Phone: [facility] 01-24-2024 14:20-0400 Diastolic blood pressure 90 mm[Hg] Treatment Wstr Work Phone: [facility] 01-24-2024 14:20-0400 Heart rate 94 /min Treatment Wstr Work Phone: [facility] 01-24-2024 14:20-0400 Respiratory rate 16 /min Treatment Wstr Work Phone: [facility] 01-24-2024 14:20-0400 SaO2% (BldA) [Mass fraction] 96 % Treatment Wstr Work Phone: [facility] 01-24-2024 14:20-0400 Systolic blood pressure 135 mm[Hg] Treatment Wstr Work Phone: [facility] 11-29-2023 14:18-0400 Body mass index (BMI) [Ratio] 36.95 kg/m2 Treatment Wstr Work Phone: [facility] 11-29-2023 14:18-0400 Body temperature 97.9 [degF] Treatment Wstr Work Phone: [facility] 11-29-2023 14:18-0400 Body weight 110.22 kg Treatment Wstr Work Phone: [facility] 11-29-2023 14:18-0400 Diastolic blood pressure 81 mm[Hg] Treatment Wstr Work Phone: [facility] 11-29-2023 14:18-0400 Heart rate 106 /min Treatment Wstr Work Phone: [facility] 11-29-2023 14:18-0400 SaO2% (BldA) [Mass fraction] 98 % Treatment Wstr Work Phone: [facility] 11-29-2023 14:18-0400 Systolic blood pressure 127 mm[Hg] Treatment Wstr Work Phone: [facility] 10-04-2023 14:24-0400 Body temperature 98.01 [degF] Treatment Wstr Work Phone: [facility] 10-04-2023 14:24-0400 Diastolic blood pressure 85 mm[Hg] Treatment Wstr Work Phone: [facility] 10-04-2023 14:24-0400 Heart rate 95 /min Treatment Wstr Work Phone: [facility] 10-04-2023 14:24-0400 SaO2% (BldA) [Mass fraction] 97 % Treatment Wstr Work Phone: [facility] 10-04-2023 14:24-0400 Systolic blood pressure 129 mm[Hg] Treatment Wstr Work Phone: [facility] 09-29-2023 13:05-0400 Body mass index (BMI) [Ratio] 36.19 kg/m2 Farida Sloan SAFETY ENGINEER [employer] PREFITTER Work Phone: [facility] 09-29-2023 13:05-0400 Body weight 107.96 kg Farida Sloan SAFETY ENGINEER [employer]ORS PREFITTER Work Phone: [facility] 09-29-2023 13:05-0400 Diastolic blood pressure 78 mm[Hg] Farida Sloan SAFETY ENGINEER [employer]ORS PREFITTER Work Phone: [facility] 09-29-2023 13:05-0400 Heart rate 92 /min Farida Sloan SAFETY ENGINEER [employer]ORS PREFITTER Work Phone: [facility] 09-29-2023 13:05-0400 Respiratory rate 16 /min Farida Sloan SAFETY ENGINEER [employer]ORS PREFITTER Work Phone: [facility] 09-29-2023 13:05-0400 SaO2% (BldA) [Mass fraction] 97 % Farida Sloan SAFETY ENGINEER [employer]ORS PREFITTER Work Phone: [facility] 09-29-2023 13:05-0400 Systolic blood pressure 122 mm[Hg] Farida Sloan SAFETY ENGINEER [employer]ORS PREFITTER Work Phone: [facility] 08-09-2023 13:50-0400 Body temperature 97.39 [degF] Treatment Wstr Work Phone: [facility] 08-09-2023 13:50-0400 Diastolic blood pressure 89 mm[Hg] Treatment Wstr Work Phone: [facility] 08-09-2023 13:50-0400 Heart rate 95 /min Treatment Wstr Work Phone: [facility] 08-09-2023 13:50-0400 SaO2% (BldA) [Mass fraction] 98 % Treatment Wstr Work Phone: [facility] 08-09-2023 13:50-0400 Systolic blood pressure 132 mm[Hg] Treatment Wstr Work Phone: [facility] 07-19-2023 09:21-0500 Diastolic blood pressure 95 mm[Hg] Iban Presley MD Work Phone: [facility] 07-19-2023 09:21-0500 Heart rate 93 /min Iban Presley MD Work Phone: [facility] 07-19-2023 09:21-0500 Respiratory rate 16 /min Iban Presley MD Work Phone: [facility] 07-19-2023 09:21-0500 SaO2% (BldA) [Mass fraction] 95 % Iban Presley MD Work Phone: [facility] 07-19-2023 09:21-0500 Systolic blood pressure 142 mm[Hg] Iban Presley MD Work Phone: [facility] 07-19-2023 08:12-0500 Body temperature 96.3 [degF] Iban Presley MD Work Phone: [facility] 07-19-2023 08:12-0500 Body weight 108.86 kg Iban Presley MD Work Phone: [facility] 04-19-2023 14:30-0500 Body temperature 97.81 [degF] Treatment Wstr Work Phone: [facility] 04-19-2023 14:30-0500 Diastolic blood pressure 82 mm[Hg] Treatment Wstr Work Phone: [facility] 04-19-2023 14:30-0500 Heart rate 108 /min Treatment Wstr Work Phone: [facility] 04-19-2023 14:30-0500 Respiratory rate 16 /min Treatment Wstr Work Phone: [facility] 04-19-2023 14:30-0500 SaO2% (BldA) [Mass fraction] 96 % Treatment Wstr Work Phone: [facility] 04-19-2023 14:30-0500 Systolic blood pressure 125 mm[Hg] Treatment Wstr Work Phone: [facility] 03-31-2023 13:40-0400 Body weight 114.22 kg Farida Haagen SAFETY ENGINEER [employer]ESSURE [employer]ESSELS.DOORS PREFITTER Work Phone: [facility] 03-31-2023 13:14-0400 Diastolic blood pressure 82 mm[Hg] Farida Haagen SAFETY ENGINEER PRESSURE VESSELS.DOORS PREFITTER Work Phone: [facility] 03-31-2023 13:14-0400 Heart rate 100 /min Farida Haagen SAFETY ENGINEER PR[employer]URE VESSELS.DOORS PREFITTER Work Phone: [facility] 03-31-2023 13:14-0400 Respiratory rate 16 /min Farida Haagen SAFETY ENGINEER PRESSURE VESSELS.DOORS PREFITTER Work Phone: [facility] 03-31-2023 13:14-0400 SaO2% (BldA) [Mass fraction] 95 % Farida Haagen SAFETY ENGINEER PRESSURE VESSELS.DOORS PREFITTER Work Phone: [facility] 03-31-2023 13:14-0400 Systolic blood pressure 126 mm[Hg] Farida Haagen SAFETY ENGINEER [employer]URE V[employer]SELS.DOORS PREFITTER Work Phone: [facility] 01-20-2023 10:15-0400 Diastolic blood pressure 92 mm[Hg] Farida Sloan SAFETY ENGINEER PRESSURE VESSELS.DOORS PREFITTER Work Phone: [facility] 01-20-2023 10:15-0400 Heart rate 93 /min Farida Sloan SAFETY ENGINEER PR[employer]URE V[employer]SELS.DOORS PREFITTER Work Phone: [facility] 01-20-2023 10:15-0400 Respiratory rate 16 /min Farida Sloan SAFETY ENGINEER PR[employer]URE VESSELS.DOORS PREFITTER Work Phone: [facility] 01-20-2023 10:15-0400 SaO2% (BldA) [Mass fraction] 96 % Farida Sloan SAFETY ENGINEER PR[employer]URE VESSELS.DOORS PREFITTER Work Phone: [facility] 01-20-2023 10:15-0400 Systolic blood pressure 128 mm[Hg] Farida Sloan SAFETY ENGINEER PR[employer]URE VESSELS.DOORS PREFITTER Work Phone: [facility] 12-28-2022 14:27-0400 Body temperature 96.91 [degF] Treatment Wstr Work Phone: [facility] 12-28-2022 14:27-0400 Diastolic blood pressure 75 mm[Hg] Treatment Wstr Work Phone: [facility] 12-28-2022 14:27-0400 Heart rate 87 /min Treatment Wstr Work Phone: [facility] 12-28-2022 14:27-0400 Systolic blood pressure 137 mm[Hg] Treatment Wstr Work Phone: [facility] 11-02-2022 14:41-0400 Body temperature 97.3 [degF] Treatment Wstr Work Phone: [facility] 11-02-2022 14:41-0400 Diastolic blood pressure 78 mm[Hg] Treatment Wstr Work Phone: [facility] 11-02-2022 14:41-0400 Heart rate 87 /min Treatment Wstr Work Phone: [facility] 11-02-2022 14:41-0400 Systolic blood pressure 135 mm[Hg] Treatment Wstr Work Phone: [facility] 08-31-2022 15:15-0400 Body temperature 97.5 [degF] Treatment Wstr Work Phone: [facility] 08-31-2022 15:15-0400 Diastolic blood pressure 91 mm[Hg] Treatment Wstr Work Phone: [facility] 08-31-2022 15:15-0400 Heart rate 98 /min Treatment Wstr Work Phone: [facility] 08-31-2022 15:15-0400 Respiratory rate 16 /min Treatment Wstr Work Phone: [facility] 08-31-2022 15:15-0400 Systolic blood pressure 147 mm[Hg] Treatment Wstr Work Phone: [facility] 07-06-2022 15:09-0500 Body temperature 97.59 [degF] Treatment Wstr Work Phone: [facility] 07-06-2022 15:09-0500 Diastolic blood pressure 82 mm[Hg] Treatment Wstr Work Phone: [facility] 07-06-2022 15:09-0500 Heart rate 93 /min Treatment Wstr Work Phone: [facility] 07-06-2022 15:09-0500 Respiratory rate 16 /min Treatment Wstr Work Phone: [facility] 07-06-2022 15:09-0500 SaO2% (BldA) [Mass fraction] 98 % Treatment Wstr Work Phone: [facility] 07-06-2022 15:09-0500 Systolic blood pressure 130 mm[Hg] Treatment Wstr Work Phone: [facility] 05-11-2022 15:00-0500 Body temperature 96.49 [degF] Treatment Wstr Work Phone: [facility] 05-11-2022 15:00-0500 Body weight 119.07 kg Treatment Wstr Work Phone: [facility] 05-11-2022 15:00-0500 Diastolic blood pressure 95 mm[Hg] Treatment Wstr Work Phone: [facility] 05-11-2022 15:00-0500 Heart rate 93 /min Treatment Wstr Work Phone: [facility] 05-11-2022 15:00-0500 Respiratory rate 18 /min Treatment Wstr Work Phone: [facility] 05-11-2022 15:00-0500 SaO2% (BldA) [Mass fraction] 96 % Treatment Wstr Work Phone: [facility] 05-11-2022 15:00-0500 Systolic blood pressure 157 mm[Hg] Treatment Wstr Work Phone: [facility] 01-21-2022 14:53-0400 Body temperature 97.7 [degF] Treatment Wstr Work Phone: [facility] 01-21-2022 14:53-0400 Diastolic blood pressure 90 mm[Hg] Treatment Wstr Work Phone: [facility] 01-21-2022 14:53-0400 Heart rate 98 /min Treatment Wstr Work Phone: [facility] 01-21-2022 14:53-0400 Respiratory rate 18 /min Treatment Wstr Work Phone: [facility] 01-21-2022 14:53-0400 SaO2% (BldA) [Mass fraction] 98 % Treatment Wstr Work Phone: [facility] 01-21-2022 14:53-0400 Systolic blood pressure 155 mm[Hg] Treatment Wstr Work Phone: [facility] 11-26-2021 15:17-0400 Body temperature 97.2 [degF] Treatment Wstr Work Phone: [facility] 11-26-2021 15:17-0400 Diastolic blood pressure 86 mm[Hg] Treatment Wstr Work Phone: [facility] 11-26-2021 15:17-0400 Heart rate 91 /min Treatment Wstr Work Phone: [facility] 11-26-2021 15:17-0400 Systolic blood pressure 153 mm[Hg] Treatment Wstr Work Phone: [facility] 10-06-2021 17:00-0400 Diastolic blood pressure 93 mm[Hg] Farida Haagen SAFETY ENGINEER PR[employer]URE [employer]ESSELS.DOORS PREFITTER Work Phone: [facility] 10-06-2021 17:00-0400 Heart rate 93 /min Farida Haagen SAFETY ENGINEER PR[employer]URE VESSELS.DOORS PREFITTER Work Phone: [facility] 10-06-2021 17:00-0400 Systolic blood pressure 139 mm[Hg] Farida Haagen SAFETY ENGINEER PR[employer]URE VESSELS.DOORS PREFITTER Work Phone: [facility] 10-06-2021 16:29-0400 Respiratory rate 18 /min Farida Gibsonagen SAFETY ENGINEER PRESSURE VESSELS.DOORS PREFITTER Work Phone: [facility] 10-06-2021 16:29-0400 SaO2% (BldA) [Mass fraction] 96 % Farida Sloan SAFETY ENGINEER PRESSURE VESSELS.DOORS PREFITTER Work Phone: [facility] 09-29-2021 15:24-0400 Body temperature 97.11 [degF] Treatment Wstr Work Phone: [facility] 09-29-2021 15:24-0400 Body weight 118.84 kg Treatment Wstr Work Phone: [facility] 09-29-2021 15:24-0400 Diastolic blood pressure 90 mm[Hg] Treatment Wstr Work Phone: [facility] 09-29-2021 15:24-0400 Heart rate 95 /min Treatment Wstr Work Phone: [facility] 09-29-2021 15:24-0400 SaO2% (BldA) [Mass fraction] 98 % Treatment Wstr Work Phone: [facility] 09-29-2021 15:24-0400 Systolic blood pressure 152 mm[Hg] Treatment Wstr Work Phone: [facility] 09-22-2021 16:53-0400 Diastolic blood pressure 100 mm[Hg] Farida Haagen SAFETY ENGINEER PRESSURE VESSELS.DOORS PREFITTER Work Phone: [facility] 09-22-2021 16:53-0400 Heart rate 123 /min Farida Sloan APRN.DOORS PREFITTER Work Phone: [facility] 09-22-2021 16:53-0400 Respiratory rate 18 /min Farida Sloan APRN.DOORS PREFITTER Work Phone: [facility] 09-22-2021 16:53-0400 SaO2% (BldA) [Mass fraction] 96 % Farida Sloan APRN.DOORS PREFITTER Work Phone: [facility] 09-22-2021 16:53-0400 Systolic blood pressure 152 mm[Hg] Farida Sloan APRN.DOORS PREFITTER Work Phone: [facility] Encounters Encounter Date Encounter Type Care Provider Facility Start: 12-25-2024 End: 12-25-2024 ambulatory Treatment Rm 14 [facility] Work Phone: Hematology/Oncology Comment on above: Crohn's disease of b oth small and large intestine with other complication (HCC) (Primary Dx) Start: 12-01-2024 End: 12-04-2024 Refill Roxanne Montaño PA-C Work Phone: [facility] [place] Comment on above: Refill Request Start: 10-31-2024 End: 10-31-2024 ambulatory Treatment Rm 18 [facility]o [facility] Wstr Work Phone: Hematology/Oncology Comment on above: Crohn's disease of b oth small and large intestine with other complication (HCC) (Primary Dx) Start: 10-04-2024 End: 12-04-2024 Follow-up encounter Farida Sloan APRN.DOORS PREFITTER Work Phone: [facility] Start: 10-04-2024 End: 10-04-2024 Office outpatient visit 25 minutes Farida Sloan APRN.DOORS PREFITTER Work Phone: [facility] Comment on above: Type 2 diabetes marc itus without complication, without long- term current use of insulin (HCC) (Primary Dx); Hypertension, essential; Vitamin D deficiency; Crohn's disease of small intestine with complication (HCC); Anemia, unspecified type; Hypertriglyceridemia Start: 10-04-2024 End: 10-04-2024 ambulatory [facility] Facility:[facility] Start: 09-28-2024 End: 09-28-2024 Orders Only Roxanne Montaño PA-C Work Phone: [facility] [place] Start: 09-27-2024 End: 09-27-2024 ambulatory [facility] Facility:[facility] Start: 09-07-2024 End: 09-07-2024 Refill Roxanne Montaño PA-C Work Phone: [facility] [place] Comment on above: Refill Request Start: 09-04-2024 End: 09-04-2024 ambulatory Treatment Rm 14 [facility] W[facility] Work Phone: Hematology/Oncology Comment on above: Crohn's disease of b oth small and large intestine with other complication (HCC) (Primary Dx) Start: 08-15-2024 End: 08-16-2024 Refill Farida Sloan SAFETY ENGINEER PRESSURE VESSELS.DOORS PREFITTER Work Phone: [facility] Comment on above: Refill Request Start: 07-31-2024 End: 07-31-2024 ambulatory SJ GONZALEZ Facility:[facility] Start: 07-31-2024 End: 07-31-2024 Office outpatient new 30 minutes Sj Gonzalez SAFETY ENGINEER PRESSURE VESSELS.DOORS PREFITTER Work Phone: Orthopaedic Surgery [facility] Comment on above: Closed nondisplaced fracture of fourth metatarsal bone of right foot, initial encounter; Closed nondisplaced fracture of fifth metatarsal bone of right foot, initial encounter Start: 07-28-2024 End: 07-28-2024 Office outpatient visit 15 minutes Lucho SINGH Work Phone: [facility] Comment on above: Foot pain, right (Pr imary Dx); Rib pain on right side; Closed nondisplaced fracture of fourth metatarsal bone of right foot, initial encounter; Closed nondisplaced fracture of fifth metatarsal bone of right foot, initial encounter; Closed fracture of one rib of right side, initial encounter Start: 07-28-2024 End: 07-28-2024 Orders Only Shania Ellis DO Work Phone: Orthopaedics Comment on above: Pain in right foot ( Primary Dx) Foot pain, right [M7 9.671] Start: 07-10-2024 End: 07-11-2024 ambulatory Treatment Rm 17 [facility] Work Phone: Hematology/Oncology Comment on above: Crohn's disease of b oth small and large intestine with other complication (HCC) (Primary Dx) Start: 06-21-2024 End: 06-21-2024 ambulatory ROXANNELAURO MONTAÑO Facility:[facility] Start: 06-16-2024 End: 06-16-2024 E-mail encounter from caregiver Roxanne Sabra DAVIS Work Phone: [facility] [place] Start: 06-16-2024 End: 06-16-2024 ambulatory Roxanne Sabra SINGH-C Work Phone: [facility] [place] Comment on above: Crohn's disease of b oth small and large intestine without complication (HCC) (Primary Dx); Special screening examination for viral disease Entyvio reyna Start: 06-16-2024 End: 06-16-2024 Telemedicine consultation with patient Roxanne Montaño SAMANTHA-C Work Phone: [facility] [place] Start: 06-12-2024 End: 06-12-2024 E-mail encounter from caregiver Roxanne Sabra SINGH-William Work Phone: [facility] [place] Start: 06-12-2024 End: 06-12-2024 Patient encounter procedure Orxanne Sabra SINGH-C Work Phone: [facility] [place] Comment on above: Appointment to renew [employer] authorization Start: 06-09-2024 End: 06-09-2024 Refill Roxanne Sabra SINGH-C Work Phone: [facility] [place] Comment on above: Refill Request Start: 05-15-2024 End: 05-15-2024 ambulatory Treatment Rm 17 [facility] Work Phone: Hematology/Oncology Comment on above: Crohn's disease of b oth small and large intestine with other complication (HCC) (Primary Dx) Start: 04-05-2024 End: 04-05-2024 Office outpatient visit 25 minutes Farida Sloan SAFETY ENGINEER PRESSURE VESSELS.DOORS PREFITTER Work Phone: [facility] Comment on above: Sinobronchitis (Prim cristin Dx); Vitamin B12 deficiency; Type 2 diabetes mellitus without complication, without long-term current use of insulin (HCC); Hypertriglyceridemia; Anemia, unspecified type; Vitamin D deficiency; Essential hypertension; Crohn's disease of small intestine with complication (HCC) Start: 04-05-2024 End: 04-05-2024 ambulatory [facility] Facility:[facility] Start: 04-04-2024 End: 04-04-2024 MC Get Medical Advice Roxanne Montaño PA-C [facility] Comment on above: Medication Refill Start: 03-31-2024 End: 03-31-2024 ambulatory BABS ROSEN Facility:[facility] Start: 03-30-2024 End: 03-30-2024 ambulatory Farida Sloan SAFETY ENGINEER PRESSURE VESSELS.DOORS PREFITTER Work Phone: [facility] Comment on above: Labs before appt Start: 03-27-2024 End: 03-28-2024 Refill Roxanne Montaño PA-C Work Phone: [facility] Comment on above: Refill Request Start: 03-20-2024 End: 03-20-2024 [facility] Comment on above: Crohn's disease of b oth small and large intestine with other complication (HCC) (Primary Dx) Start: 03-20-2024 End: 03-20-2024 Patient encounter procedure Treatment Rm 14 [facility] Work Phone: Hematology/Oncology Start: 03-14-2024 End: 03-15-2024 Refill Geraldine Crowe PA-C Work Phone: [facility] Comment on above: Refill Request Start: 03-11-2024 End: 03-13-2024 Refill Roxanne Montaño PA-C Work Phone: [facility] Comment on above: Refill Request Start: 03-11-2024 End: 03-11-2024 Patient encounter procedure [facility] Work Phone: [facility] Start: 03-11-2024 End: 03-11-2024 ambulatory [facility] Nurse [place] Work Phone: [facility] [place] Start: 01-24-2024 End: 01-24-2024 ambulatory MK ZUNIGADIR Hematology/Oncology Comment on above: Crohn's disease of b oth small and large intestine with other complication (HCC) (Primary Dx) Start: 01-24-2024 End: 01-24-2024 Patient encounter procedure Treatment Rm 14 [facility] Work Phone: Hematology/Oncology Start: 01-17-2024 End: 01-20-2024 ambulatory Farida Sloan SAFETY ENGINEER PRESSURE VESSELS.DOORS PREFITTER Work Phone: [facility] Comment on above: New prior auth neede d Start: 01-17-2024 End: 01-17-2024 Telephone encounter Edwin Kumar DO Work Phone: [facility] Comment on above: Insurance Authorizat ion ([employer]) Start: 01-09-2024 ambulatory Farida Sloan SAFETY ENGINEER PRESSURE VESSELS.DOORS PREFITTER Work Phone: [facility] Comment on above: Losartan Refill Request Start: 12-15-2023 Refill Geraldine Jorge on PA-C Work Phone: [facility] Comment on above: Refill Request Start: 11-29-2023 End: 11-29-2023 ambulatory Treatment Rm 11 [facility] Work Phone: Hematology/Oncology Comment on above: Crohn's disease of b oth small and large intestine with other complication (HCC) (Primary Dx) Start: 10-18-2023 Orders Only Geraldine Jorge on PA-C Work Phone: [facility] Start: 10-04-2023 End: 10-04-2023 ambulatory Treatment Rm 11 [facility] Work Phone: Hematology/Oncology Comment on above: Crohn's disease of b oth small and large intestine with other complication (HCC) (Primary Dx) Start: 09-29-2023 End: 09-29-2023 Office outpatient visit 25 minutes Farida Sloan APRN.DOORS PREFITTER Work Phone: [facility] Comment on above: Hypertension, essent ial (Primary Dx); Encounter for immunization; Type 2 diabetes mellitus without complication, without long-term current use of insulin (HCC); Hypertriglyceridemia Start: 08-09-2023 End: 08-09-2023 ambulatory Treatment Rm 8 [facility] [employer] Work Phone: Hematology/Oncology Comment on above: Crohn's disease of b oth small and large intestine with other complication (HCC) (Primary Dx) Start: 07-19-2023 End: 07-19-2023 Subsequent hospital visit by physician Iban Presley MD Work Phone: Ambulatory Surgery Comment on above: Crohn's disease of b oth small and large intestine with other complication (HCC) [K50.818] Start: 07-12-2023 Refill Edwin Burciaga son DO Work Phone: [facility] Comment on above: Refill Request Start: 04-30-2023 End: 04-30-2023 Subsequent hospital visit by physician Elena [facility] Work Phone: Radiology Comment on above: Acute cough [R05.1] Start: 04-19-2023 End: 04-19-2023 ambulatory Treatment Rm 11 [facility] Work Phone: Hematology/Oncology Comment on above: Crohn's disease of s mall intestine with complication (HCC) (Primary Dx) Carvedilol and tiald yl Start: 04-12-2023 Refill Letty Vargas APRN.DOORS PREFITTER Work Phone: [facility] Comment on above: Refill Request Start: 03-31-2023 End: 03-31-2023 Office outpatient visit 25 minutes Farida Sloan APRN.DOORS PREFITTER Work Phone: [facility] [place] Comment on above: Type 2 diabetes marc itus without complication, without long- term current use of insulin (HCC) (Primary Dx); High urine creatine; Hypertension, essential Start: 03-13-2023 End: 03-13-2023 ambulatory [facility] Nurse [place] Work Phone: [facility] [place] Start: 03-10-2023 Telephone encounter Farida catherine APRN.DOORS PREFITTER Work Phone: [facility] [place] Comment on above: Results Start: 02-10-2023 Telephone encounter Edwin philip DO Work Phone: [facility] Comment on above: Insurance Authorizat ion Start: 02-09-2023 Orders Only Farida Sloan APRN.DOORS PREFITTER Work Phone: [facility] [place] Start: 01-20-2023 End: 01-20-2023 Office outpatient visit 25 minutes Farida Sloan APRN.DOORS PREFITTER Work Phone: [facility] Comment on above: Type 2 diabetes marc itus without complication, without long- term current use of insulin (HCC) (Primary Dx); Hypertension, essential Start: 01-13-2023 Refill Farida Sloan APRN.DOORS PREFITTER Work Phone: [facility] Comment on above: Refill Request Start: 12-28-2022 End: 12-28-2022 ambulatory Treatment Rm 11 [facility] Work Phone: Hematology/Oncology Comment on above: Crohn's disease of s mall intestine with complication (HCC) (Primary Dx) Start: 12-14-2022 Telephone encounter Geraldine Figueroa PA-C Work Phone: [facility] Comment on above: Orders Start: 12-11-2022 Refill Mk Sanchez MD Work Phone: [facility] Comment on above: Refill Request Results Start: 12-09-2022 Telephone encounter Geraldine Figueroa PA-C Work Phone: [facility] Comment on above: Orders Start: 12-08-2022 ambulatory Edwin porter DO Work Phone: [facility] Comment on above: Hypertension Start: 11-25-2022 Telephone encounter Geraldine Figueroa PA-C Work Phone: [facility] Comment on above: Insurance Authorizat ion (Prior Auth Delayed: Additional Info Needed) Start: 11-02-2022 End: 11-02-2022 ambulatory Treatment Rm 13 [facility] Work Phone: Hematology/Oncology Comment on above: Crohn's disease of s mall intestine with complication (HCC) (Primary Dx) Start: 10-30-2022 Telephone encounter Zechariah yanes DO Work Phone: Hematology/Oncology Comment on above: Appointment Start: 10-27-2022 Refill [facility] glass [facility]-C [facility] Comment on above: Refill Request Start: 10-06-2022 Refill Cari Gonzalez SAFETY ENGINEER PRESSURE VESSELS.DOORS PREFITTER Work Phone: [facility] Comment on above: Refill Request Start: 08-31-2022 End: 08-31-2022 ambulatory Treatment Rm 9 [facility] Work Phone: Hematology/Oncology Comment on above: Crohn's disease of s mall intestine with complication (HCC) (Primary Dx) Start: 07-06-2022 End: 07-06-2022 ambulatory Treatment Rm 1 [facility] Work Phone: Hematology/Oncology Comment on above: Crohn's disease of s mall intestine with complication (HCC) (Primary Dx) Start: 07-05-2022 Refill Farida Sloan SAFETY ENGINEER PRESSURE VESSELS.DOORS PREFITTER Work Phone: [facility] Comment on above: Refill Request Start: 05-11-2022 End: 05-11-2022 ambulatory Treatment Rm 1 [facility] Work Phone: Hematology/Oncology Comment on above: Crohn's disease of s mall intestine with complication (HCC) (Primary Dx) Start: 04-23-2022 Refill [facility]k Sanchez [facility] Comment on above: Refill Request Start: 04-23-2022 Refill Mk Sanchez MD Work Phone: [facility] Comment on above: Refill Request Start: 02-28-2022 End: 02-28-2022 ambulatory [facility] Work Phone: [facility] Start: 01-21-2022 End: 01-21-2022 ambulatory Treatment Rm 7 [facility] Work Phone: Hematology/Oncology Comment on above: Crohn's disease of s mall intestine with complication (HCC) (Primary Dx) Start: 11-26-2021 End: 11-26-2021 ambulatory Treatment Rm 6 [facility] Work Phone: Hematology/Oncology Comment on above: Crohn's disease of s mall intestine with complication (HCC) (Primary Dx) Start: 11-25-2021 Orders Only Geraldine glass PA-C Work Phone: [facility] Start: 11-21-2021 End: 11-21-2021 ambulatory Geraldine Henry PA-C Work Phone: [facility] Comment on above: Crohn's disease of s mall intestine without complication (HCC) (Primary Dx) Start: 11-21-2021 End: 11-21-2021 Telemedicine consultation with patient Geraldine Henry PA-C Work Phone: [facility] Start: 10-23-2021 ambulatory Mk Sanchez MD Work Phone: [facility] Comment on above: Entmaria luisa authorabi n Start: 10-23-2021 E-mail encounter fro m caregiver Mk Sanchez MD Work Phone: [facility] Start: 10-22-2021 Refill Mk Sanchez MD Work Phone: [facility] Comment on above: Refill Request Start: 10-17-2021 Refill Farida Sloan APRN.DOORS PREFITTER Work Phone: [facility] [place] Comment on above: Refill Request Start: 10-06-2021 End: 10-06-2021 Patient encounter procedure Farida Sloan APRN.DOORS PREFITTER Work Phone: [facility] Comment on above: Hypertension, essent ial (Primary Dx); Resistant hypertension; Essential hypertension Start: 09-29-2021 End: 09-29-2021 ambulatory Treatment Rm 1 Christiano [facility]ly [facility] Work Phone: Hematology/Oncology Comment on above: Crohn's disease of s mall intestine with complication (HCC) (Primary Dx) Start: 09-22-2021 End: 09-22-2021 Patient encounter procedure Farida Sloan APRN.DOORS PREFITTER Work Phone: [facility] [place] Comment on above: Hypertension, essent ial (Primary Dx); Tachycardia Start: 08-20-2021 Refill Mk Sanchez MD Work Phone: Ambulatory Surgery Comment on above: Refill Request Start: 09-20-2020 Patient encounter status Mk Sanchez MD Work Phone: [facility] Work Phone: Start: 03-06-2017 Ambulatory MK SANCHEZ Velazquez Ho spital Procedures Date Procedure Procedure Detail Performing Clinician Start: 07-28-2024 Radex foot complete minimum 3 views Lucho SINGH Work Phone: Start: 03-31-2024 Lipid 1996 panel - S leon or Plasma Farida Sloan APRN.DOORS PREFITTER Work Phone: Start: 07-19-2023 Colonoscopy flx dx w /collj spec when pfrmd Roxanne Montaño PAWaltC Work Phone: Start: 07-19-2023 Colonoscopy Roxanne barr PA-C Work Phone: Start: 04-30-2023 Radiologic exam ches t 2 views Michael Butler MD Work Phone: Start: 03-13-2023 INFLUENZA VACCINE, A GE 6 MO - 64 YR, QUADRIVALENT (AFLURIA, FLULAVAL, FLUZONE) Elias Woodall MD Work Phone: Start: 02-28-2022 INFLUENZA VACCINE QUADRIVALENT 6 MO - 64 YRS IM Edwin Kumar DO Work Phone: Start: 01-10-2021 Adult depression scr eening assessment Mk Sanchez MD Work Phone: Plan of Treatment Date Care Activity Detail Author Start: 2039 HEPATITIS B (1 of 3 - Risk 3-dose series) HEPATITIS B (1 of 3 - Risk 3-dose series) [facility] Start: 2039 Hepatitis B Vaccine (1 of 3 - Risk 3-dose series) Hepatitis B Vaccine (1 of 3 - Risk 3-dose series) [facility] Start: 03-31-2029 Lipid panel Lipid Screening [facility] Start: 06-30-2028 Urine microalbumin profile [facility] Start: 12-11-2027 LIPID SCREEN LIPID SCREEN [facility] Start: 11-01-2025 Glaucoma screening Dilated Retinal Exam [facility] Start: 10-04-2025 Annual PCP Team Chronic Disease Visit Annual PCP Team Chronic Disease Visit [facility] Start: 10-04-2025 BP Controlled (<130/80) BP Controlled (<130/80) [facility] Start: 10-04-2025 Covid-19 Vaccine ( season) Covid-19 Vaccine () [facility] Comment on above: Postponed from 01/30/2024 (Declined at t his time) Start: 10-04-2025 Diabetic foot examination Diabetic Foot Exam [facility] Start: 10-04-2025 Hepatitis B Vaccine (1 of 3 - 19+ 3-dose series) Hepatitis B Vaccine (1 of 3 - 19+ 3-dose series) [facility] Comment on above: Postponed from 12/01/1998 (Declined at t his time) Start: 09-27-2025 Hepatitis B surface antibody level LDL Cholesterol [facility] Start: 07-28-2025 BP Controlled (<130/80) BP Controlled (<130/80) [facility] Start: 04-18-2025 End: 04-18-2025 Patient encounter procedure 04/18/2025 1:00 PM EST Office Visit Family [facility] [address] [place] [id number] Farida Sloan APRN.DO[employer] P[employer]ITTER [address] [place] [id number] 6 month follow up [facility] Comment on above: 6 month follow up Start: 04-06-2025 End: 07-06-2025 25-hydroxyvitamin D3 [Mass/volume] in Serum or Plasma VITAMIN D 25 HYDROXY Lab Routine Vitamin D deficiency Expected: 04/06/2025, Expires: 07/06/2025 [facility] Comment on above: Expected: 04/06/2025, Expires: Start: 04-06-2025 End: 07-06-2025 CBC W Auto Differential panel - Blood COMPLETE BLOOD COUNT AND DIFFERENTIAL Lab Routine Crohn's disease of small intestine with complication (HCC) Anemia, unspecified type Expected: 04/06/2025, Expires: 07/06/2025 [facility] Comment on above: Expected: 04/06/2025, Expires: Start: 04-06-2025 End: 07-06-2025 Comprehensive metabolic 2000 panel - Serum or Plasma COMPREHENSIVE METABOLIC PANEL Lab Routine Hypertension, essential Crohn's disease of small intestine with complication (HCC) Expected: 04/06/2025, Expires: 07/06/2025 [facility] Comment on above: Expected: 04/06/2025, Expires: Start: 04-06-2025 End: 07-06-2025 Hemoglobin A1c in Blood HEMOGLOBIN A1C Lab Routine Type 2 diabetes mellitus without complication, without long-term current use of insulin (HCC) Expected: 04/06/2025, Expires: 07/06/2025 [facility] Work Phone: Comment on above: Expected: 04/06/2025, Expires: Start: 04-06-2025 End: 07-06-2025 Lipid 1996 panel - Serum or Plasma LIPID PANEL, FASTING Lab Routine Hypertriglyceridemia Expected: 04/06/2025, Expires: 07/06/2025 [facility] Comment on above: Expected: 04/06/2025, Expires: Start: 04-05-2025 Annual PCP Team Chronic Disease Visit Annual PCP Team Chronic Disease Visit [facility] Start: 04-05-2025 BP Controlled (<130/80) BP Controlled (<130/80) [facility] Start: 03-31-2025 Hepatitis B screening Urine Albumin:Creatinine Ratio [facility] Start: 03-31-2025 Hepatitis B surface antibody level LDL Cholesterol [facility] Start: 03-29-2025 Hemoglobin A1c measurement HbA1C [facility] Start: 02-19-2025 End: 02-19-2025 ambulatory 02/19/2025 2:30 PM EDT Infusion Center Hematology/Oncology [address] [place] [address] 2nd Hematology/Oncology Comment on above: 2nd Start: 01-29-2025 Influenza vaccination Influenza Vaccine (#1) [facility] Start: 12-25-2024 End: 12-25-2024 ambulatory 12/25/2024 2:30 PM EDT Infusion Center Hematology/Oncology [address] [place] [address] 2nd Hematology/Oncology Comment on above: 2nd Start: 12-01-2024 Screening for malignant neoplasm of colon [facility] Start: 10-30-2024 End: 10-30-2024 ambulatory 10/30/2024 2:30 PM EDT Infusion Center Hematology/Oncology [address] [place] [address] 2nd Hematology/Oncology Comment on above: 2nd Start: 10-04-2024 End: 10-04-2024 Patient encounter procedure Family [facility] Comment on above: 6 month follow up Start: 10-03-2024 End: 01-02-2025 25-hydroxyvitamin D3 [Mass/volume] in Serum or Plasma VITAMIN D 25 HYDROXY Lab Routine Vitamin D deficiency Expected: 10/03/2024, Expires: 01/02/2025 [facility] Comment on above: Expected: 10/03/2024, Expires: Start: 10-03-2024 End: 01-02-2025 CBC W Auto Differential panel - Blood COMPLETE BLOOD COUNT AND DIFFERENTIAL Lab Routine Anemia, unspecified type Expected: 10/03/2024, Expires: 01/02/2025 [facility] Comment on above: Expected: 10/03/2024, Expires: Start: 10-03-2024 End: 01-02-2025 Cobalamin (Vitamin B12) [Mass/volume] in Serum or Plasma VITAMIN B12 Lab Routine Vitamin B12 deficiency Expected: 10/03/2024, Expires: 01/02/2025 [facility] Comment on above: Expected: 10/03/2024, Expires: Start: 10-03-2024 End: 01-02-2025 Comprehensive metabolic 2000 panel - Serum or Plasma COMPREHENSIVE METABOLIC PANEL Lab Routine Type 2 diabetes mellitus without complication, without long-term current use of insulin (HCC) Hypertriglyceridemia Expected: 10/03/2024, Expires: 01/02/2025 [facility] Comment on above: Expected: 10/03/2024, Expires: Start: 10-03-2024 End: 01-02-2025 Hemoglobin A1c in Blood HEMOGLOBIN A1C Lab Routine Type 2 diabetes mellitus without complication, without long-term current use of insulin (HCC) Expected: 10/03/2024, Expires: 01/02/2025 [facility] Work Phone: Comment on above: Expected: 10/03/2024, Expires: Start: 10-03-2024 End: 01-02-2025 Lipid 1996 panel - Serum or Plasma LIPID PANEL BASIC Lab Routine Hypertriglyceridemia Expected: 10/03/2024, Expires: 01/02/2025 [facility] Comment on above: Expected: 10/03/2024, Expires: Start: 09-28-2024 Annual PCP Team Chronic Disease Visit Annual PCP Team Chronic Disease Visit [facility] Start: 09-28-2024 BP Controlled (<130/80) BP Controlled (<130/80) [facility] Start: 09-28-2024 Hemoglobin A1c measurement HbA1C [facility] Start: 09-28-2024 Hepatitis A Vaccine (1 of 2 - Risk 2-dose series) Hepatitis A Vaccine (1 of 2 - Risk 2-dose series) [facility] Comment on above: Postponed from 12/01/1998 (Declined at t his time) Start: 09-28-2024 Meningococcal B Vaccine: Consider Based On Risk (1 of 4 - Increased Risk) Meningococcal B Vaccine: Consider Based On Risk (1 of 4 - Increased Risk) [facility] Comment on above: Postponed from 12/01/1989 (Declined at t his time) Start: 09-28-2024 MMR Vaccine (1 of 2 - Risk 2-dose series) MMR Vaccine (1 of 2 - Risk 2-dose series) [facility] Comment on above: Postponed from 12/01/1997 (Declined at t his time) Start: 09-04-2024 End: 09-04-2024 ambulatory 09/04/2024 2:30 PM EDT Infusion [place] Hematology/Oncology [address] [place] [address] 2nd Hematology/Oncology Comment on above: 2nd Start: 08-09-2024 End: 08-09-2024 Patient encounter procedure Radiology Comment on above: right foot Closed nondisplaced fracture of fourth metatarsal bone of right foot, initial encounter [S92.344A] Start: 07-12-2024 End: 07-12-2024 Patient encounter procedure 07/12/2024 1:00 PM EST Office Visit [facility] [address] [place] [id number] Roxanne Montaño PA-C [address] [place] [address] follow up, prescription reorder [facility] Comment on above: follow up, prescription reorder Start: 07-10-2024 End: 07-10-2024 ambulatory 07/10/2024 2:30 PM EST [facility] Hematology/Oncology [address] [place] [address] 2nd Hematology/Oncology Comment on above: 2nd Start: 06-16-2024 End: 06-16-2025 BLOOD TB SCREEN, INCUBATED BLOOD TB SCREEN, INCUBATED Lab Routine Special screening examination for viral disease Expected: 06/16/2024, Expires: 06/16/2025 [facility] Work Phone: Comment on above: Expected: 06/16/2024, Expires: 6 Start: 06-16-2024 End: 09-15-2024 Hepatitis B virus surface Ag [Presence] in Serum HEPATITIS B SURFACE ANTIGEN Lab Routine Special screening examination for viral disease Expected: 06/16/2024, Expires: 09/15/2024 [facility] Comment on above: Expected: 06/16/2024, Expires: 5 Start: 06-16-2024 End: 06-16-2024 ambulatory 06/16/2024 7:30 AM [facility] [place] [address] [place] [address] Roxanne Montaño PA-C [address], [place] [id number] F/U Crohn's, updated visit for david barone for Entyvio, Left voicemail for patient-LWard [facility] [place] Comment on above: F/U Crohn's, updated visit for david vazquez for Entyvio, Left voicemail for patient-LWgerda Start: 05-15-2024 End: 05-15-2024 ambulatory Hematology/Oncology Comment on above: 2nd Start: 04-05-2024 End: 04-05-2024 Patient encounter procedure 04/05/2024 1:00 PM EST Office Visit Family [place] [facility] [address] [place] [address] Farida Sloan APRN.[employer]ORS P[employer]ITTER [address] [place] [address] 6 month follow up Family [facility] Comment on above: 6 month follow up Start: 03-31-2024 Annual PCP Team Chronic Disease Visit Annual PCP Team Chronic Disease Visit [facility] Start: 03-31-2024 End: 03-31-2024 ambulatory 03/31/2024 8:15 AM EDT Results Only [facility] [place] [facility] [address] [place] [address] [facility] [facility] Start: 03-30-2024 End: 06-29-2024 CBC W Auto Differential panel - Blood COMPLETE BLOOD COUNT AND DIFFERENTIAL Lab Routine Anemia, unspecified type Expected: 03/30/2024, Expires: 06/29/2024 [facility] Comment on above: Expected: 03/30/2024, Expires: Start: 03-30-2024 End: 06-29-2024 Comprehensive metabolic 2000 panel - Serum or Plasma COMPREHENSIVE METABOLIC PANEL Lab Routine Essential hypertension Type 2 diabetes mellitus without complication, without long-term current use of insulin (HCC) Hypertriglyceridemia Expected: 03/30/2024, Expires: 06/29/2024 [facility] Work Phone: Comment on above: Expected: 03/30/2024, Expires: Start: 03-30-2024 End: 06-29-2024 Hemoglobin A1c in Blood HEMOGLOBIN A1C Lab Routine Type 2 diabetes mellitus without complication, without long-term current use of insulin (HCC) Expected: 03/30/2024, Expires: 06/29/2024 [facility] Comment on above: Expected: 03/30/2024, Expires: Start: 03-30-2024 End: 06-29-2024 Lipid 1996 panel - Serum or Plasma LIPID PANEL BASIC Lab Routine Essential hypertension Type 2 diabetes mellitus without complication, without long-term current use of insulin (HCC) Hypertriglyceridemia Expected: 03/30/2024, Expires: 06/29/2024 [facility] Comment on above: Expected: 03/30/2024, Expires: Start: 03-30-2024 End: 06-29-2024 Microalbumin/Creatin ine [Mass Ratio] in Urine ALBUMIN/CREATININE RATIO, URINE Lab Routine Type 2 diabetes mellitus without complication, without long-term current use of insulin (HCC) Expected: 03/30/2024, Expires: 06/29/2024 [facility] Comment on above: Expected: 03/30/2024, Expires: Start: 03-30-2024 End: 06-29-2024 Thyrotropin [Units/volume] in Serum or Plasma THYROID STIMULATING HORMONE Lab Routine Type 2 diabetes mellitus without complication, without long-term current use of insulin (HCC) Expected: 03/30/2024, Expires: 06/29/2024 [facility] Comment on above: Expected: 03/30/2024, Expires: Start: 03-25-2024 Hepatitis B screening Urine Albumin:Creatinine Ratio [facility] Start: 03-20-2024 End: 03-20-2024 ambulatory 03/20/2024 2:30 PM EDT Visit (SP) Office Hematology/Oncology [address] [place] [address] 2nd Hematology/Oncology Comment on above: 2nd Start: 03-11-2024 End: 03-11-2024 Patient encounter procedure 03/11/2024 9:10 AM EDT Immunization Family Medicine [place] [address] [place] [address] [facility], Immunization Clinic Nurse [address] [place] [address] Nothing [facility] Medicine [facility] Comment on above: Nothing Start: 03-08-2024 Hepatitis B screening Urine Albumin:Creatinine Ratio [facility] Start: 03-01-2024 Glaucoma screening Dilated Retinal Exam [facility] Start: 03-01-2024 Hepatitis C antibody, confirmatory test Dilated Retinal Exam [facility] Start: 02-25-2024 BP Controlled (<130/80) BP Controlled (<130/80) [facility] Start: 01-30-2024 Covid-19 Vaccine ( season) Covid-19 Vaccine ( season) [facility] Start: 01-30-2024 Covid-19 Vaccine ( season) Covid-19 Vaccine ( season) [facility] Start: 01-30-2024 Influenza vaccination Influenza Vaccine (#1) [facility] Start: 01-24-2024 End: 01-24-2024 ambulatory Hematology/Oncology Comment on above: Q2MO ENTYVIO/AUTH EXP ?* no later than 2 30-latest appt poss 2nd Start: 01-21-2024 3 comp foot exam completed DIABETIC FOOT EXAM [facility] Start: 01-21-2024 ANNUAL PCP TEAM CHRONIC DISEASE VISIT ANNUAL PCP TEAM CHRONIC DISEASE VISIT [facility] Start: 01-21-2024 Diabetic foot examination Diabetic Foot Exam [facility] Start: 12-11-2023 Hepatitis B surface antibody level LDL CHOLESTEROL [facility] Start: 12-10-2023 ANNUAL PCP TEAM CHRONIC DISEASE VISIT ANNUAL PCP TEAM CHRONIC DISEASE VISIT [facility] Start: 11-29-2023 End: 11-29-2023 ambulatory 11/29/2023 2:30 PM EDT [facility][1] Hematology/Oncology [address] [place] [address] Q2MO ENTYVIO/AUTH EXP 12/07/23* no later than 230-latest appt poss Hematology/Oncology Comment on above: Q2MO ENTYVIO/AUTH EXP 12/07/23* no later t tripp 230-latest appt poss Start: 11-27-2023 Hemoglobin A1c measurement HbA1C [facility] Start: 10-04-2023 End: 10-04-2023 ambulatory 10/04/2023 2:30 PM EDT [facility][1] Hematology/Oncology [address] [place] [address] Q2MO ENTYVIO/AUTH EXP 12/07/23* no later than 230-latest appt poss Hematology/Oncology Comment on above: Q2MO ENTYVIO/AUTH EXP 12/07/23* no later t tripp 230-latest appt poss Start: 10-04-2023 LIPID SCREEN LIPID SCREEN [facility] Start: 09-29-2023 End: 12-29-2023 CBC W Auto Differential panel - Blood COMPLETE BLOOD COUNT AND DIFFERENTIAL Lab Routine Hypertension, essential Expected: 09/29/2023, Expires: 12/29/2023 [facility] Comment on above: Expected: 09/29/2023, Expires: Start: 09-29-2023 End: 12-29-2023 Comprehensive metabolic 2000 panel - Serum or Plasma COMPREHENSIVE METABOLIC PANEL Lab Routine Hypertension, essential Expected: 09/29/2023, Expires: 12/29/2023 [facility] Comment on above: Expected: 09/29/2023, Expires: Start: 09-29-2023 End: 12-29-2023 Hemoglobin A1c in Blood HEMOGLOBIN A1C Lab Routine Type 2 diabetes mellitus without complication, without long-term current use of insulin (HCC) Expected: 09/29/2023, Expires: 12/29/2023 [facility] Work Phone: Comment on above: Expected: 09/29/2023, Expires: 4 Start: 09-29-2023 End: 12-29-2023 Lipid 1996 panel - Serum or Plasma LIPID PANEL BASIC Lab Routine Hypertriglyceridemia Expected: 09/29/2023, Expires: 12/29/2023 [facility] Comment on above: Expected: 09/29/2023, Expires: Start: 09-07-2023 Hemoglobin A1c/Hemoglobin.total in Blood HbA1C [facility] Start: 07-01-2023 End: 09-30-2023 Hemoglobin A1c in Blood HGB A1C Lab Routine Type 2 diabetes mellitus without complication, without long-term current use of insulin ([facility]) Expected: 07/01/2023, Expires: 09/30/2023 [facility] Work Phone: Comment on above: Expected: 07/01/2023, Expires: Start: 06-16-2023 Hemoglobin A1c/Hemoglobin.total in Blood HBA1C [facility] Start: 05-31-2023 Behavioral Health Screening Behavioral Health Screening [facility] Start: 05-31-2023 Depression Assessment Depression Assessment [facility] Start: 03-31-2023 End: 06-30-2023 Basic metabolic 2000 panel - Serum or Plasma BASIC METABOLIC PNL Lab Routine High urine creatine Expected: 03/31/2023, Expires: 06/30/2023 [facility] Work Phone: Comment on above: Expected: 03/31/2023, Expires: 4 Start: 03-10-2023 End: 05-10-2023 ALBUMIN/CREAT RATIO RND UR ALBUMIN/CREAT RATIO RND UR Lab Routine Type 2 diabetes mellitus without complication, without long-term current use of insulin (HCC) Expected: 03/10/2023, Expires: 05/10/2023 [facility] Work Phone: Comment on above: Expected: 03/10/2023, Expires: 3 Start: 02-28-2023 End: 10-21-2023 Hemoglobin A1c in Blood HGB A1C Lab Routine Type 2 diabetes mellitus without complication, without long-term current use of insulin (HCC) Expected: 02/28/2023, Expires: 10/21/2023 [facility] Work Phone: Comment on above: Expected: 02/28/2023, Expires: 4 Start: 01-29-2023 Covid-19 Vaccine () Covid-19 Vaccine () [facility] Start: 01-29-2023 Influenza vaccination [facility] Start: 01-20-2023 End: 01-21-2024 ALBUMIN/CREAT RATIO RND UR ALBUMIN/CREAT RATIO RND UR Lab Routine Type 2 diabetes mellitus without complication, without long-term current use of insulin (HCC) Expected: 01/20/2023, Expires: 01/21/2024 [facility] Work Phone: Comment on above: Expected: 01/20/2023, Expires: 4 Start: 12-14-2022 End: 12-15-2023 BLOOD TB SCREEN, INCUBATED BLOOD TB SCREEN, INCUBATED Lab Routine Special screening examination for viral disease Expected: 12/14/2022, Expires: 12/15/2023 [facility] Work Phone: Comment on above: Expected: 12/14/2022, Expires: 4 Start: 12-09-2022 End: 12-10-2023 BLOOD TB SCREEN, INCUBATED BLOOD TB SCREEN, INCUBATED Lab Routine Crohn's disease of both small and large intestine without complication (HCC) Special screening examination for viral disease Expected: 12/09/2022, Expires: 12/10/2023 [facility] Work Phone: Comment on above: Expected: 12/09/2022, Expires: 4 Start: 12-09-2022 End: 02-08-2023 Hepatitis B virus surface Ag [Presence] in Serum HEP B SURF AG SCRN Lab Routine Crohn's disease of both small and large intestine without complication (HCC) Special screening examination for viral disease Expected: 12/09/2022, Expires: 02/08/2023 [facility] Work Phone: Comment on above: Expected: 12/09/2022, Expires: 3 Start: 10-06-2022 ANNUAL PCP TEAM CHRONIC DISEASE VISIT ANNUAL PCP TEAM CHRONIC DISEASE VISIT [facility] Start: 09-22-2022 ANNUAL PCP TEAM CHRONIC DISEASE VISIT ANNUAL PCP TEAM CHRONIC DISEASE VISIT [facility] Start: 08-18-2022 ANNUAL PCP TEAM CHRONIC DISEASE VISIT ANNUAL PCP TEAM CHRONIC DISEASE VISIT [facility] Start: 05-31-2022 DEPRESSION ASSESSMENT DEPRESSION ASSESSMENT [facility] Start: 01-29-2022 Influenza vaccination INFLUENZA (#1) [facility] Start: 01-10-2022 Adult depression screening assessment DEPRESSION SCREENING [facility] Start: 05-31-2021 DEPRESSION ASSESSMENT DEPRESSION ASSESSMENT [facility] Start: 12-16-2019 BP CONTROLLED (<130/80) BP CONTROLLED (<130/80) [facility] Start: 12-01-1998 HEPATITIS A (1 of 2 - Risk 2-dose series) HEPATITIS A (1 of 2 - Risk 2-dose series) [facility] Start: 12-01-1998 Hepatitis A Vaccine (1 of 2 - Risk 2-dose series) Hepatitis A Vaccine (1 of 2 - Risk 2-dose series) [facility] Start: 12-01-1998 HEPATITIS B (1 of 3 - Risk 3-dose series) HEPATITIS B (1 of 3 - Risk 3-dose series) [facility] Start: 12-01-1998 Hepatitis B Vaccine (1 of 3 - 19+ 3-dose series) Hepatitis B Vaccine (1 of 3 - 19+ 3-dose series) [facility] Start: 12-01-1997 Anxiety Screening Anxiety Screening [facility] Start: 12-01-1997 Depression Screening Depression Screening [facility] Start: 12-01-1997 MMR (1 of 2 - Risk 2-dose series) MMR (1 of 2 - Risk 2-dose series) [facility] Start: 12-01-1997 MMR Vaccine (1 of 2 - Risk 2-dose series) MMR Vaccine (1 of 2 - Risk 2-dose series) [facility] Start: 12-01-1989 3 comp foot exam completed DIABETIC FOOT EXAM [facility] Start: 12-01-1989 Hepatitis B screening URINE ALBUMIN:CREATININE RATIO [facility] Start: 12-01-1989 Hepatitis C antibody, confirmatory test DILATED RETINAL EXAM [facility] Start: 12-01-1989 Meningococcal B Vaccine: Consider Based On Risk (1 of 4 - Increased Risk) Meningococcal B Vaccine: Consider Based On Risk (1 of 4 - Increased Risk) [facility] Start: 12-01-1989 MENINGOCOCCAL B: Consider based on risk (1 of 4 - Increased Risk Bexsero 2-dose series) MENINGOCOCCAL B: Consider based on risk (1 of 4 - Increased Risk Bexsero 2-dose series) [facility] Start: 12-01-1989 MENINGOCOCCAL B: Consider based on risk (1 of 4 - Increased Risk) MENINGOCOCCAL B: Consider based on risk (1 of 4 - Increased Risk) [facility] Start: 12-01-1985 PNEUMOCOCCAL (1 - PCV) PNEUMOCOCCAL (1 - PCV) [facility] Start: 12-01-1985 Pneumococcal vaccination [facility] Start: 12-01-1980 HEPATITIS A (1 of 2 - Risk 2-dose series) HEPATITIS A (1 of 2 - Risk 2-dose series) [facility] Bacteria identified in Urine by Culture URINE CULTURE Microbiology Routine High urine creatine 03/31/2023 2:43 PM EDT [facility] Work Phone: End: 12-21-2022 MRI ABD ENTEROG WO/W IVCON MRI ABD ENTEROG WO/W IVCON Radiology Routine Crohn's disease of small intestine without complication (HCC) 1 Occurrences starting 11/21/2021 until 12/21/2022 [facility] Work Phone: Comment on above: 1 Occurrences starting 11/21/2021 until 12/21/2022 End: 12-21-2022 Mri pelvis w/o & w/contrast material MRI PEL ENTEROG WO/W IVCON Radiology Routine Crohn's disease of small intestine without complication (HCC) 1 Occurrences starting 11/21/2021 until 12/21/2022 [facility] Work Phone: Comment on above: 1 Occurrences starting 11/21/2021 until 12/21/2022 SURGICAL PATHOLOGY [facility] Work Phone: Comment on above: Release Upon Ordering for 1 Occurrences starting 07/19/2023, 1 completed Urinalysis complete panel - Urine URINALYSIS, WITH MICROSCOPIC Lab Routine High urine creatine 03/31/2023 2:43 PM EDT [facility] Work Phone: End: 08-27-2025 XR Foot - right AP and Lateral and oblique XR FOOT GENERAL 3V AP/LAT/OBL RIGHT Radiology Routine Pain in right foot 1 Occurrences starting 07/28/2024 until 08/27/2025 [facility] Work Phone: Comment on above: 1 Occurrences starting 07/28/2024 until 08/27/2025 End: 08-31-2025 XR Foot - right AP and Lateral and oblique XR FOOT GENERAL 3V AP/LAT/OBL RIGHT Radiology Routine Closed nondisplaced fracture of fourth metatarsal bone of right foot, initial encounter Closed nondisplaced fracture of fifth metatarsal bone of right foot, initial encounter 1 Occurrences starting 07/31/2024 until 08/31/2025 [facility] Work Phone: Comment on above: 1 Occurrences starting 07/31/2024 until 08/31/2025 [facility] Immunizations Immunization Date Immunization Notes Care Provider [facility] 03-11-2024 influenza, seasonal, injectable Immunization [place] Work Phone: [facility] 03-11-2024 influenza virus vaccine, unspecified formulation Roxanne Montaño PA-C Work Phone: [facility] 09-29-2023 pneumococcal conjuga te (PCV20) vaccine, 20 valent (PREVNAR 20) Farida Sloan SAFETY ENGINEER [employer]SE[employer]ON Work Phone: [facility] 09-29-2023 pneumococcal Conjugate, unspecified formulation Farida Sloan SAFETY ENGINEER PRESSURE VESSELS.DOORS P[employer]ITTER Work Phone: [facility] 03-13-2023 influenza, injectabl e, quadrivalent, contains preservative Immunization [place] Work Phone: [facility] 03-13-2023 influenza virus vaccine, unspecified formulation Treatment [facility] Work Phone: [facility] 02-28-2022 influenza, injectabl e, quadrivalent, contains preservative Immunization [place] Work Phone: [facility] 02-28-2022 influenza virus vaccine, unspecified formulation Farida Sloan SAFETY ENGINEER PR[employer]URE VESSELS.DOORS PREFITTER Work Phone: [facility] 02-22-2021 influenza, injectabl e, quadrivalent, contains preservative Mk Sanchez MD Work Phone: [facility] Work Phone: 04-06-2020 influenza, injectabl e, quadrivalent, contains preservative Mk Sanchez MD Work Phone: [facility] Work Phone: 04-15-2019 influenza, injectabl e, quadrivalent, contains preservative Mk Sanchez MD Work Phone: [facility] 06-30-2018 tetanus toxoid, reduced diphtheria toxoid, and acellular pertussis vaccine, adsorbed Mk Sanchez MD Work Phone: [facility] 03-15-2018 influenza virus vaccine, unspecified formulation Mk Sanchez MD Work Phone: [facility] Work Phone: 05-13-2009 novel [id number], preservative-free, injectable Farida Sloan APRN.DOORS P[employer]ITTER Work Phone: [facility] Payers Date Payer Category Payer Private Health Insurance [id number] 2021 Private Health Insurance [employer] A ETNA CHOICE POS II [id number] 2021-Present [phone] [address] [place] [address] POS [id number] 2021 Private Health Insurance [id number] Social History Date Type Detail Facility Start: 03-02-2017 End: 04-05-2024 Tobacco smoking status NHIS Ex-smoker [facility] Start: 03-02-2017 End: 04-05-2024 Tobacco use and exposure Smokeless tobacco non-user [facility] Start: 08-18-2021 End: 10-04-2024 Alcohol intake Current drinker of alcohol (finding) [facility] Start: 01-11-2020 End: 03-27-2020 History SDOH Alcohol Frequency 3 [facility] Start: 03-25-2020 End: 03-27-2020 History SDOH Alcohol Std Drinks 1 [facility] Start: 02-03-2019 History SDOH Alcohol Comment occasional [facility] Start: 03-25-2020 History SDOH Social Connections Phone 4 [facility] Start: 01-11-2020 End: 03-22-2021 History SDOH Social Connections Get Together 2 [facility] Start: 01-11-2020 History SDOH Financial 5 [facility] Start: 01-11-2020 Education 19 [facility] Start: 03-02-2017 End: 12-09-2022 Tobacco Comment Temporary smoker during college [facility] Start: 1980 Sex Assigned At Not on file [facility] Start: 07-05-2021 End: 10-28-2021 Exposure to SARS-CoV-2 (event) Not sure [facility] History of tobacco use Current smoker [facility] Work Phone: History of tobacco use Cigarette Smoker C [facility] Work Phone: Start: 03-25-2020 End: 11-02-2022 History of Social function [facility] Start: 03-25-2020 End: 11-02-2022 Social connection and isolation panel [facility] Frequency of Social Gatherings with Friends and Family Not on file [facility] Do you belong to any clubs or organizations such as cheondoism groups, [employer], Mob[employer] or athletic groups, or school groups? No [facility] How often to you hav e a drink containing alcohol? 2-4 times a month [facility] How many standard dr inks containing alcohol do you have on a typical day? 1 or 2 [facility] How often do you hav e 6 or more drinks on 1 occasion? Never [facility] Do you feel stress - tense, restless, nervous, or anxious, or unable to sleep at night because your mind is troubled all the time - these days [OSQ] Not at all [facility] (I/We) worried blanquita er (my/our) food would run out before (I/we) got money to buy more. Never true [facility] Do you belong to any clubs or organizations such as cheondoism groups, [employer], Mob[employer] or athletic groups, or school groups? Yes [facility] Are you now , , , , never or living with a partner? [facility] How many standard dr inks containing alcohol do you have on a typical day? 3 or 4 [facility] How often do you hav e 6 or more drinks on 1 occasion? Less than monthly [facility] Do you feel stress - tense, restless, nervous, or anxious, or unable to sleep at night because your mind is troubled all the time - these days [OSQ] Only a little [facility] Medical Equipment Procedure Code Equipment Code Equipment Origin al Text Equipment Identifier Dates Test blood sugar(s) 1 times daily. Dx: Type 2 DM - Controlled E11.9 Insulin: No [id number], [id number] Start: 01-20-2023 Comment on above: Test blood sugar(s) 1 times daily. Dx: Type 2 DM - Controlled E11.9 Insulin: No Functional Status Date Assessment Result Facility 01-07-2021 Are you deaf, or do you have serious difficulty hearing No 01/07/2021 2:32 PM Emelia George APRN.DOORS PREFITTER No [facility] Work Phone: 01-07-2021 Are you blind, or do you have serious difficulty seeing, even when wearing glasses No 01/07/2021 2:32 PM Emelia George SAFETY ENGINEER PRESSURE VESSELS.[employer] P[employer]ITTER No [facility] 01-07-2021 Do you have serious difficulty walking or climbing stairs No 01/07/2021 2:32 PM EDT Emelia Ernandez APRN.DOORS PREFITTER No [facility] 01-07-2021 Do you have difficul ty dressing or bathing No 01/07/2021 2:32 PM EDT Emelia Ernandez SAFETY ENGINEER PR[employer]URE [employer]SELS.[facility] 01-07-2021 Because of a physica l, mental, or emotional condition, do you have difficulty doing errands alone such as visiting a physician's office or shopping No 01/07/2021 2:32 PM EDT Emelia Ernandez SAFETY ENGINEER PRESSURE VESSELS.[facility] No [facility] Mental Status Date Assessment Result Facility 01-07-2021 Because of a physica l, mental, or emotional condition, do you have serious difficulty concentrating, remembering, or making decisions No 01/07/2021 2:32 PM EDT Emelia Ernandez APRN.DOORS PREFITTER No [facility] Clinical Notes 04-14-2017 to 12-04-2024 Telephone Encounter - Emelia Barcenas MA - 12/04/2024 7:45 AM EDTTelephone Encounter - Emelia Barcenas MA - 12/04/2024 7:45 AM EDTPatient Farida Leos APRN.QUANG - 10/04/2024 1:13 PM EDT Note Date & Type Note Facility 12-04-2024 Telephone encounter Note Patient phones requesting refills as follows: Requested Prescriptions Pending Prescriptions Disp Refills budesonide, enteric coated (ENTOCORT EC) 3 mg 24 hr capsule [Pharmacy Med Name: BUDESONIDE EC 3 MG CAPSULE] 270 capsule 1 Sig: TAKE 3 CAPSULES BY MOUTH EVERY DAY Please review and advise. Emelia Barcenas CMA [facility] 12-04-2024 Miscellaneous Notes Patient phones requesting refills as follows: Requested Prescriptions Pending Prescriptions Disp Refills budesonide, enteric coated (ENTOCORT EC) 3 mg 24 hr capsule [Pharmacy Med Name: BUDESONIDE EC 3 MG CAPSULE] 270 capsule 1 Sig: TAKE 3 CAPSULES BY MOUTH EVERY DAY Please review and advise. Emelia Barcenas CMA documented in this encounter [facility] 10-04-2024 Instructions Farida Sloan APRN.QUANG - 10/04/2024 1:29 PM EDT Continue the same medications. Recheck in 6 months. (I'll put orders in for labs). documented in this encounter [facility] 10-04-2024 Note HNO ID: [id number] Author: FARIDA SLOAN APRN.QUANG Service: ? Author Type: Nurse Practitioner Type: Progress Notes Filed: 10/04/2024 17:00 Note Text: This is a 43 year old male who presents today with: Patient presents with: 6 Month Exam HISTORY OF PRESENT ILLNESS: Annabella Chapa is a 43 year old male. Patient presents with: 6 Month Exam DM: Reports overall feeling well. Medication side effects: No. Home sugar checks: no Hypoglycemic spells: No. Watching diet: watches sodium and low bulk. Unexpected weight loss: No. Polyuria, polydipsia: No. Vision Changes: No. Has an appt next month. Foot lesions or numbness or pain: No. HTN: Patient is compliant with meds Yes Monitors bp at home: Yes. Denies side effects: No. Chest pain: No. Dyspnea: No. Edema: a little more swelling in the ankles. Palpitations: No. Syncope: No. Headache: No. Dizziness: No. Crohn's Has been controlled. PAST MEDICAL HISTORY: PAST MEDICAL HISTORY Diagnosis Date Anemia B12 deficiency 06/30/2018 Calculus of kidney 11/23/2017 left ureterolithiasis Crohn's disease of small intestine with complication (HCC) 03/02/2017 DDD (degenerative disc disease), cervical 02/04/2018 on MRI DDD (degenerative disc disease), lumbar 02/04/2018 on MRI H/O right hemicolectomy 07/2000 Hemorrhoids HTN (hypertension) Iron deficiency anemia due to chronic blood loss 10/08/2018 Obesity, Class II, BMI 35-39.9 06/30/2018 Proximal limb muscle weakness 02/04/2018 neg. myositis, vasculitis, Lyme, WNV, GBS work up. Tachycardia 02/21/2018 Type 2 diabetes mellitus without complication, without long-term current use of insulin (HCC) 12/15/2022 Vitamin D deficiency 06/30/2018 PAST SURGICAL HISTORY Procedure Laterality Date COLECTOMY PARTIAL W ANASTOM Right 07/2000 Right hemicolectomy [facility] COLONOSCOPY 05/11/2016 Grade 1 internal hemorrhoids, severe inflammation at surgical site COLONOSCOPY 06/23/2005 Crohn's activity at ileocolonic anastamosis COLONOSCOPY 09/17/2006 Persistent surgical anastomotic stricture.Significant inflammation and ulceration on ileal side of anastomosis COLONOSCOPY 05/25/2018 Stenosis of ileocolonic anastomosis, Crohn's disease, hemorrhoids, markedly ulcerated colonic mucosa COLONOSCOPY 02/03/2019 chronic active colitis COLONOSCOPY SCREENING 07/19/2023 Non-bleeding internal hemorrhoids, tubular adenoma EGD 02/03/2019 cervical inlet patch, minimal active inflammation EYE SURGERY HX PAST SURGICAL HISTORY OF 1998 left ankle broken, screws REMV CATARACT EXTRACAP,INSERT LENS Bilateral 04/2023 ALLERGIES Ciprofloxacin MEDICATIONS Current Outpatient Medications Medication Sig cyanocobalamin 1,000 mcg/mL INJECT 1 ML INTRAMUSCULARLY ONCE EVERY MONTH. losartan (COZAAR) 100 mg tablet Take 1 tablet by mouth once daily. budesonide, enteric coated (ENTOCORT EC) 3 mg 24 hr capsule Take 3 capsules by mouth once daily. carvedilol (COREG) 25 mg tablet Take 1 tablet by mouth two times a day. dilTIAZem CR (TIADYLT ER) 360 mg 24 hr capsule Take 1 capsule by mouth once daily. semaglutide (OZEMPIC) 1 mg/dose (4 mg/3 mL) pen Inject 1 mg subcutaneously one time a week. spironolactone (ALDACTONE) 25 mg tablet Take 1 tablet by mouth once daily. blood sugar diagnostic (BLOOD GLUCOSE TEST) test strip Test blood sugar(s) 1 times daily. Dx: Type 2 DM - Controlled E11.9 Insulin: No Lancets lancets Test blood sugar(s) 1 times daily. Dx: Type 2 DM - Controlled E11.9 Insulin: No ergocalciferol 50,000 unit capsule (VITAMIN D2, DRISDOL) Take 1 capsule by mouth one time a week. Wednesday vedolizumab (ENTYVIO) 300 mg injection 300mg Intravenous every 8 weeks. omeprazole (PRILOSEC) 40 mg capsule Take 1 capsule by mouth once daily as needed. docusate sodium (COLACE ORAL) Take by mouth once daily. No current facility-administered medications for this visit. FAMILY HISTORY Problem Relation Age of Onset Colon Cancer Paternal Uncle 55 Breast Cancer Maternal Aunt Cancer Maternal Grandfather renal cancer No Known Problems Mother Coronary Artery Disease Father 72 CABG Hypertension Father No Known Problems Brother No Known Problems Maternal Grandmother No Known Problems Paternal Grandmother Alzheimer's Disease Paternal Grandfather Social History Tobacco Use Smoking status: Former Types: Cigarettes Smokeless tobacco: Never Tobacco comments: Temporary smoker during college Vaping Use Vaping status: Never Used Substance Use Topics Alcohol use: Yes Comment: occasional Drug use: Never EXAM: BP 112/62 Pulse 88 Ht 172.7 cm (5' 8) Wt 102.5 kg (226 lb) SpO2 97% BMI 34.36 kg/m? PHYSICAL EXAM: General Appearance: Well appearing, alert, in no acute distress, well-hydrated, well nourished.. Skin: Skin color, texture, turgor normal, no suspicious rashes or lesions. Head: Normocephalic, no masses, lesions, tenderness or abnormalitie (more content not included)... [facility] 10-04-2024 History of Present illness Narrative This is a 43 year old male who presents today with: Patient presents with: 6 Month Exam HISTORY OF PRESENT ILLNESS: Annabella Chapa is a 43 year old male. Patient presents with: 6 Month Exam DM: Reports overall feeling well. Medication side effects: No. Home sugar checks: no Hypoglycemic spells: No. Watching diet: watches sodium and low bulk. Unexpected weight loss: No. Polyuria, polydipsia: No. Vision Changes: No. Has an appt next month. Foot lesions or numbness or pain: No. HTN: Patient is compliant with meds Yes Monitors bp at home: Yes. Denies side effects: No. Chest pain: No. Dyspnea: No. Edema: a little more swelling in the ankles. Palpitations: No. Syncope: No. Headache: No. Dizziness: No. Crohn's Has been controlled. PAST MEDICAL HISTORY: PAST MEDICAL HISTORY Diagnosis Date Anemia B12 deficiency 06/30/2018 Calculus of kidney 11/23/2017 left ureterolithiasis Crohn's disease of small intestine with complication ([facility]) 03/02/2017 DDD (degenerative disc disease), cervical 02/04/2018 on MRI DDD (degenerative disc disease), lumbar 02/04/2018 on MRI H/O right hemicolectomy 07/2000 Hemorrhoids HTN (hypertension) Iron deficiency anemia due to chronic blood loss 10/08/2018 Obesity, Class II, BMI 35-39.9 06/30/2018 Proximal limb muscle weakness 02/04/2018 neg. myositis, vasculitis, Lyme, WNV, GBS work up. Tachycardia 02/21/2018 Type 2 diabetes mellitus without complication, without long-term current use of insulin ([facility]) 12/15/2022 Vitamin D deficiency 06/30/2018 PAST SURGICAL HISTORY Procedure Laterality Date COLECTOMY PARTIAL W ANASTOM Right 07/2000 Right hemicolectomy [facility] COLONOSCOPY 05/11/2016 Grade 1 internal hemorrhoids, severe inflammation at surgical site COLONOSCOPY 06/23/2005 Crohn's activity at ileocolonic anastamosis COLONOSCOPY 09/17/2006 Persistent surgical anastomotic stricture.Significant inflammation and ulceration on ileal side of anastomosis COLONOSCOPY 05/25/2018 Stenosis of ileocolonic anastomosis, Crohn's disease, hemorrhoids, markedly ulcerated colonic mucosa COLONOSCOPY 02/03/2019 chronic active colitis COLONOSCOPY SCREENING 07/19/2023 Non-bleeding internal hemorrhoids, tubular adenoma EGD 02/03/2019 cervical inlet patch, minimal active inflammation EYE SURGERY HX PAST SURGICAL HISTORY OF 1998 left ankle broken, screws REMV CATARACT EXTRACAP,INSERT LENS Bilateral 04/2023 ALLERGIES Ciprofloxacin MEDICATIONS Current Outpatient Medications Medication Sig cyanocobalamin 1,000 mcg/mL INJECT 1 ML INTRAMUSCULARLY ONCE EVERY MONTH. losartan (COZAAR) 100 mg tablet Take 1 tablet by mouth once daily. budesonide, enteric coated (ENTOCORT EC) 3 mg 24 hr capsule Take 3 capsules by mouth once daily. carvedilol (COREG) 25 mg tablet Take 1 tablet by mouth two times a day. dilTIAZem CR (TIADYLT ER) 360 mg 24 hr capsule Take 1 capsule by mouth once daily. semaglutide (OZEMPIC) 1 mg/dose (4 mg/3 mL) pen Inject 1 mg subcutaneously one time a week. spironolactone (ALDACTONE) 25 mg tablet Take 1 tablet by mouth once daily. blood sugar diagnostic (BLOOD GLUCOSE TEST) test strip Test blood sugar(s) 1 times daily. Dx: Type 2 DM - Controlled E11.9 Insulin: No Lancets lancets Test blood sugar(s) 1 times daily. Dx: Type 2 DM - Controlled E11.9 Insulin: No ergocalciferol 50,000 unit capsule (VITAMIN D2, DRISDOL) Take 1 capsule by mouth one time a week. Wednesday vedolizumab (ENTYVIO) 300 mg injection 300mg Intravenous every 8 weeks. omeprazole (PRILOSEC) 40 mg capsule Take 1 capsule by mouth once daily as needed. docusate sodium (COLACE ORAL) Take by mouth once daily. No current facility-administered medications for this visit. FAMILY HISTORY Problem Relation Age of Onset Colon Cancer Paternal Uncle 55 Breast Cancer Maternal Aunt Cancer Maternal Grandfather renal cancer No Known Problems Mother Coronary Artery Disease Father 72 CABG Hypertension Father No Known Problems Brother No Known Problems Maternal Grandmother No Known Problems Paternal Grandmother Alzheimer's Disease Paternal Grandfather Social History Tobacco Use Smoking status: Former Types: Cigarettes Smokeless tobacco: Never Tobacco comments: Temporary smoker during college Vaping Use Vaping status: Never Used Substance Use Topics Alcohol use: Yes Comment: occasional Drug use: Never EXAM: BP 112/62 Pulse 88 Ht 172.7 cm (5' 8) Wt 102.5 kg (226 lb) SpO2 97% BMI 34.36 kg/m PHYSICAL EXAM: General Appearance: Well appearing, alert, in no acute distress, well-hydrated, well nourished.. Skin: Skin color, texture, turgor normal, no suspicious rashes or lesions. Head: Normocephalic, no masses, lesions, tenderness or abnormalities. Eyes: Anicteric sclera. Extraocular movements are intact. . Neck: Supple, no adenopathy; thyroid symmetric, normal size, no bruits. Lungs: Lungs clear to auscultation. No wheezing, rhonchi, rales.. Heart: RRR without murmur, gallop, or rubs. No ectopy. Extremities: No deformities, trace edema, skin discoloration, clubbing or cyanosis. Good capillary refill. . Neurologic: Gait normal. Feet:Shoes and socks removed, No deformities, ulcers, calluses, normal distal pulses, and sensitive to 10 gm monofilament ASSESSMENT/PLAN: 1. Type 2 diabetes mellitus without complication, without long-term current use of insulin (HCC) - ICD9: 250.00, ICD10: E11.9 (primary diagnosis) - Controlled - Continue current medications - SEMAGLUTIDE 1 MG/DOSE (4 MG/3 ML) SUBCUTANEOUS PEN INJECTOR 2. Hypertension, essential - ICD9: 401.9, ICD10: I10 - Controlled - Continue current medications - Recommend home blood pressure monitoring, to bring results to next visit - Encouraged sodium restriction, DASH or Mediterranean diet - Recommend regular aerobic exercise - CARVEDILOL 25 MG TABLET - DILTIAZEM CR 360 MG CAP - LOSARTAN 100 MG TABLET - SPIRONOLACTONE 25 MG TABLET 3. Vitamin D deficiency - ICD9: 268.9, ICD10: E55.9 - ERGOCALCIFEROL (VITAMIN D2) 1,250 MCG (50,000 UNIT) CAPSULE 4. Crohn's disease of small intestine with complication (HCC) - ICD9: 555.0, ICD10: K50.019 Stable. Continue per GI. 5. Anemia, unspecified type - ICD9: 285.9, ICD10: D64.9 Stable. Recheck in 5 months. 6. Hypertriglyceridemia - ICD9: 272.1, ICD10: E78.1 - Controlled - Improving control - Counseled on healthy diet and regular exercise Discussed treatment plan and patient voices understanding. Patient's questions answered appropriately. Medications and potential side effects were discussed and patient voices understanding. Return to the office as scheduled or as needed for worsening/no improvement. Farida Sloan APRN.QUANG documented in this encounter [facility] 09-07-2024 Telephone encounter Note Patient phones requesting refills as follows: Requested Prescriptions Pending Prescriptions Disp Refills cyanocobalamin 1,000 mcg/mL [Pharmacy Med Name: CYANOCOBALAMIN 1,000 MCG/ML VL] 3 mL 0 Sig: INJECT 1 ML INTRAMUSCULARLY ONCE EVERY MONTH. Please review and advise. Abe Holley MA [facility] 09-07-2024 Miscellaneous Notes Patient phones requesting refills as follows: Requested Prescriptions Pending Prescriptions Disp Refills cyanocobalamin 1,000 mcg/mL [Pharmacy Med Name: CYANOCOBALAMIN 1,000 MCG/ML VL] 3 mL 0 Sig: INJECT 1 ML INTRAMUSCULARLY ONCE EVERY MONTH. Please review and advise. Abe Holley MA documented in this encounter [facility] 08-16-2024 Telephone encounter Note Prescription Refill Information The patient has been identified by name and date of : Yes Caregiver verified no other encounters exist for this prescription request: Yes Caregiver confirmed with patient/requestor that no other refills are due, in the near future, with this provider at this time: Yes The last office visit in the department: 04/05/24 Does the patient have a future office visit with this provider/department: Yes 10/04/24 Requested Prescriptions Pending Prescriptions Disp Refills losartan (COZAAR) 100 mg tablet 90 tablet 2 Sig: Take 1 tablet by mouth once daily. Megan Graves LPN August 16, 2024 10:38 AM [facility] 08-16-2024 Miscellaneous Notes Prescription Refill Information The patient has been identified by name and date of : Yes Caregiver verified no other encounters exist for this prescription request: Yes Caregiver confirmed with patient/requestor that no other refills are due, in the near future, with this provider at this time: Yes The last office visit in the department: 04/05/24 Does the patient have a future office visit with this provider/department: Yes 10/04/24 Requested Prescriptions Pending Prescriptions Disp Refills losartan (COZAAR) 100 mg tablet 90 tablet 2 Sig: Take 1 tablet by mouth once daily. Megan Graves LPN August 16, 2024 10:38 AM documented in this encounter [facility] 07-31-2024 Instructions Sj Gonzalez APRN.QUANG - 07/31/2024 10:42 AM EST You may increase weight to the injured leg as tolerated, always wearing the boot while weightbearing. You may want to purchase a device called an even-up online which you put on the outside of your other shoe to help you walk evenly. This can help avoid knee/hip/low back pain. Elevate as needed. Wearing a compression sock to help reduce swelling is recommended. A brand that is comfortable and provides good compression is called SockFitOrbit. You can buy this online. Look for a 20-30mmHg stocking. You do not need to sleep in the boot. You may wiggle your toes as much as you want, and perform gentle ankle range of motion (up and down, side to side) a few times daily. This can also help prevent a blood clot, known as a DVT, from forming. Take 2,000IU of vitamin D with some form of calcium daily (dairy product, multi-vitamin, etc). It is recommended that you continue this until you are approximately 3 months out from your injury. Avoid NSAIDs (ibuprofen, Advil, Motrin, Aleve, naproxen) on a regular basis. These medications may interfere with bony healing. Acetaminophen (Tylenol) is appropriate to use for pain control as needed and directed. Ice and elevate your foot daily/as needed. Do not apply the ice directly to the skin, and do not leave the ice on your foot for longer than 20 minutes. You can repeat this process once every 1-2 hours as needed. There is important to remember not to put the ice directly on the skin because it could cause skin burn/frostbite Do not use any tobacco products as this can increase your risk of developing a blood clot and can slow down healing of the fracture. Call the Orthopedic Foot [facility] Ankle clinic at [phone] with any questions. documented in this encounter [facility] 07-31-2024 Note HNO ID: [id number] Author: SJ GONZALEZ APRN.CNP Service: ? Author Type: Nurse Practitioner Type: Progress Notes Filed: 07/31/2024 10:43 Note Text: Foot and Ankle Clinic - New Patient Visit Consultation requested by Lucho Castillo [address] [facility] [id number] for an opinion regarding Mr. Annabella Chapa, and my final recommendations will be communicated back to the requesting physician by way of shared medical record or letter via [place] mail. CHIEF COMPLAINT: RT foot pain HISTORY OF PRESENT ILLNESS: Annabella Chapa is a 43 year old male who presents today RT foot pain x 4 days, patient fell down stairs on 07/28/2024. Patient states his pain level is a 5 today with constant aching with movement and pressure. He was seen at Urgent care on 07/28/2024, he was given a walking boot and referred to Orthopedics. For discomfort he uses ice, Advil/tylenol, relaxation, reposition, and walking boot. DOI:07/02/2024 Mechanism:walking boot Location of Pain: RT foot The pain is present yes The pain is a 2/10 at its best, and 7/10 at its worst. They reports nocturnal pain. The pain is exacerbated by walking, managing stairs, prolonged standing, ADLs, and works. The pain is improved with rest, activity modification, ice, and Advil/tylenol. They report aching. They are able to walk 20 minutes before having to stop secondary to pain. 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 Eyes: extraocular movements intact, pupils are equal, round, and reactive to light. Cardiovascular: normal pulses Pulmonary: normal work of breathing on room air Skin: capillary refill takes less than 2 seconds Neurological: AOx4, follows commands Musculoskeletal: right lower extremity Inspection: No obvious deformity noted Palpation: Pain with palpation throughout the forefoot ROM: Within normal limits Neuro: sensation intact in the superficial peroneal, deep peroneal, tibial, sural, and saphenous nerve distributions Vascular: DP pulse present, 2+ Compartments: compartments of leg are soft and compressible IMAGIN. Nondisplaced fractures of the right fourth and fifth metatarsals 2 probable acute fracture of the right seventh anterior rib. Old rib fractures also identified. ASSESSMENT I reviewed the imaging studies, physical exam findings, and clinical course with the patient today. Ananbella Chapa is a 43 year old male who presents today right fourth and fifth metatarsal fracture, with forefoot ecchymosis and swelling, sensation intact, denies any numbness or tingling or radiating pain, he is weightbearing in a short leg boot and able to tolerate it well Bilateral dorsalis pedis pulses are equal and palpable. Sensory exam is within normal limits in all dermatomal distributions. Strength is equal 5 out of 5 at the ankle. Review of systems negative for fever, weight loss, malaise, fatigue, significant headache, vision changes, hearing loss, neck swelling, cough, chest pain, shortness of breath, dyspnea on exertion, abdominal pain, nausea, vomiting, diarrhea, urinary dysfunction PLAN: Today I had a long discussion with and Mrs. Chapa regarding Mr. Chapa injury, I have recommended conservative treatment includin-continue weightbearing as tolerated in the short leg boot 2-Tylenol for pain not to exceed 3800 mg in 24 hours 3-Vitamin D3: 5,000IU, take 1 tablet daily. This is an over the counter dose and you can purchase it at any pharmacy. You should take this along with Calcium and multivitamin and should continue this for a total of 3 months at a minimum 4-Ice and elevate your foot daily/as needed. Do not apply the ice directly to the skin, and do not leave the ice on your foot for longer than 20 minutes. You can repeat this process once every 1-2 hours as needed. There is important to remember not to put the ice directly on the skin because it could cause skin burn/frostbite -Go directly to the ER for any severe pain in the calf muscle, fever over 100.5F, red streaks running up your leg, chest pain or shortness of breath. Surgical plan: No WB: As tolerated Brace/DME: Short leg boot PT: No DVT PPX: Patient is weightbearing Progression: Ongoing Follow up: 4 weeks Will continue to monitor patient for Closed nondisplaced fracture of fourth metatarsal bone of right foot, initial encounter Closed nondisplaced fracture of fifth metatarsal bone of right foot, initial encounter, patient to schedule visit as per follow up discussed. Imaging needed: X-ray (more content not included)... [facility] 07-31-2024 History of Present illness Narrative Foot and Ankle Clinic - New Patient Visit Consultation requested by Lucho Castillo [address] [facility] [address] for an opinion regarding Mr. Annabella Chapa, and my final recommendations will be communicated back to the requesting physician by way of shared medical record or letter via [place] mail. CHIEF COMPLAINT: RT foot pain HISTORY OF PRESENT ILLNESS: Annabella Chapa is a 43 year old male who presents today RT foot pain x 4 days, patient fell down stairs on 07/28/2024. Patient states his pain level is a 5 today with constant aching with movement and pressure. He was seen at Urgent care on 07/28/2024, he was given a walking boot and referred to Orthopedics. For discomfort he uses ice, Advil/tylenol, relaxation, reposition, and walking boot. DOI:07/02/2024 Mechanism:walking boot Location of Pain: RT foot The pain is present yes The pain is a 2/10 at its best, and 7/10 at its worst. They reports nocturnal pain. The pain is exacerbated by walking, managing stairs, prolonged standing, ADLs, and works. The pain is improved with rest, activity modification, ice, and Advil/tylenol. They report aching. They are able to walk 20 minutes before having to stop secondary to pain. 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 Eyes: extraocular movements intact, pupils are equal, round, and reactive to light. Cardiovascular: normal pulses Pulmonary: normal work of breathing on room air Skin: capillary refill takes less than 2 seconds Neurological: AOx4, follows commands Musculoskeletal: right lower extremity Inspection: No obvious deformity noted Palpation: Pain with palpation throughout the forefoot ROM: Within normal limits Neuro: sensation intact in the superficial peroneal, deep peroneal, tibial, sural, and saphenous nerve distributions Vascular: DP pulse present, 2+ Compartments: compartments of leg are soft and compressible IMAGIN. Nondisplaced fractures of the right fourth and fifth metatarsals 2 probable acute fracture of the right seventh anterior rib. Old rib fractures also identified. ASSESSMENT I reviewed the imaging studies, physical exam findings, and clinical course with the patient today. Annabella Chapa is a 43 year old male who presents today right fourth and fifth metatarsal fracture, with forefoot ecchymosis and swelling, sensation intact, denies any numbness or tingling or radiating pain, he is weightbearing in a short leg boot and able to tolerate it well Bilateral dorsalis pedis pulses are equal and palpable. Sensory exam is within normal limits in all dermatomal distributions. Strength is equal 5 out of 5 at the ankle. Review of systems negative for fever, weight loss, malaise, fatigue, significant headache, vision changes, hearing loss, neck swelling, cough, chest pain, shortness of breath, dyspnea on exertion, abdominal pain, nausea, vomiting, diarrhea, urinary dysfunction PLAN: Today I had a long discussion with and Mrs. Chapa regarding Mr. Chapa injury, I have recommended conservative treatment includin-continue weightbearing as tolerated in the short leg boot 2-Tylenol for pain not to exceed 3800 mg in 24 hours 3-Vitamin D3: 5,000IU, take 1 tablet daily. This is an over the counter dose and you can purchase it at any pharmacy. You should take this along with Calcium and multivitamin and should continue this for a total of 3 months at a minimum 4-Ice and elevate your foot daily/as needed. Do not apply the ice directly to the skin, and do not leave the ice on your foot for longer than 20 minutes. You can repeat this process once every 1-2 hours as needed. There is important to remember not to put the ice directly on the skin because it could cause skin burn/frostbite -Go directly to the ER for any severe pain in the calf muscle, fever over 100.5F, red streaks running up your leg, chest pain or shortness of breath. Surgical plan: No WB: As tolerated Brace/DME: Short leg boot PT: No DVT PPX: Patient is weightbearing Progression: Ongoing Follow up: 4 weeks Will continue to monitor patient for Closed nondisplaced fracture of fourth metatarsal bone of right foot, initial encounter Closed nondisplaced fracture of fifth metatarsal bone of right foot, initial encounter, patient to schedule visit as per follow up discussed. Imaging needed: X-ray At the conclusion of the office visit, the patient was asked if they had any questions regarding the diagnosis or care. Also, ample time was provided for the patient to ask any questions regarding the diagnosis therefore plan of care. All the patient's questions if asked were answered to their satisfaction I spent a total of 30 minutes on the date of the service which included preparing to see the patient, [id number] patient care, completing clinical documentation, obtaining and/or reviewing separately obtained history, performing a medically appropriate examination, counseling and educating the patient/family/caregiver, ordering medications, tests, or procedures, communicating with other HCPs (not separately reported), independently interpreting results (not separately reported), communicating results to the patient/family/caregiver, and care coordination (not separately reported). Thank you for the opportunity to participate in this patient's care. Sj Gonzalez CNP Orthopaedic Medical Decision Making (MDM) Complexity of problems: Acute fracture, Complexity of data: Independent interpretation of imaging, 2 unique test results reviewed, Risk: Minimal risk of morbidity from testing/treatment, Level of MDM: Moderate (4) This note was partially generated using Alsbridge voice recognition system, any errors noted are unintentional and are due to this technology. documented in this encounter [facility] 07-28-2024 History of Present illness Narrative Radiology Service Progress Note PATIENT NAME: Annabella Chapa DATE OF SERVICE: July 28, 2024 TIME: 11:18 AM PATIENT IDENTITY VERIFICATION COMPLETED USING TWO (2) IDENTIFIERS: Name and Date of confirmed by patient verbally. FALL SCREENING: Has the patient had 2 falls in the last year or 1 fall with injury or currently using an Ambulatory Assistive Device (Walker, Cane, Wheelchair, Crutches, etc.)? No PATIENT GENDER DATA: Assigned male at PATIENT RELEVANT IMPLANT DATA REVIEWED: Not Applicable PATIENT PRESENTS WITH AN IMPLANTABLE OR ATTACHED CORRECTIONAL OFFICER CHIEF: No RADIOLOGY DEPARTMENT: General X-ray: Exam(s) Completed: Rib X-Ray: Right Lower Extremity X-Ray(s): Foot, Right PERIPHERAL IV DATA: Not applicable SIGNED BY: RT Clifford(R) July 28, 2024 11:18 AM documented in this encounter [facility] 07-28-2024 Note HNO ID: [id number] Author: CURTIS HWANG RT(R) Service: Radiology Author Type: Technologist Type: Progress Notes Filed: 07/28/2024 11:30 Note Text: Radiology Service Progress Note PATIENT NAME: Ananbella Chpaa DATE OF SERVICE: July 28, 2024 TIME: 11:18 AM PATIENT IDENTITY VERIFICATION COMPLETED USING TWO (2) IDENTIFIERS: Name and Date of confirmed by patient verbally. FALL SCREENING: Has the patient had 2 falls in the last year or 1 fall with injury or currently using an Ambulatory Assistive Device (Walker, Cane, Wheelchair, Crutches, etc.)? No PATIENT GENDER DATA: Assigned male at PATIENT RELEVANT IMPLANT DATA REVIEWED: Not Applicable PATIENT PRESENTS WITH AN IMPLANTABLE OR ATTACHED CORRECTIONAL OFFICER CHIEF: No RADIOLOGY DEPARTMENT: General X-ray: Exam(s) Completed: Rib X-Ray: Right Lower Extremity X-Ray(s): Foot, Right PERIPHERAL IV DATA: Not applicable SIGNED BY: RT Clifford(Myron) July 28, 2024 11:18 AM [facility] 07-28-2024 Note HNO ID: [id number] Author: LUCHO CASTILLO PA Service: ? Author Type: Physician Security Installer Type: Progress Notes Filed: 07/28/2024 12:21 Note Text: This note was created using NoteWriter. Subjective Annabella Chapa is a 43 year old male. HPI 43-year-old male presents for fall. Patient states yesterday evening he was carrying his son down the stairs when he fell and fell onto his right side. He is having right sided rib pain and right foot pain. He denies hitting his head or losing consciousness. No neck pain. He is not on any blood thinners. He has no difficulty breathing or chest pain, just reports rib pain on right side. He states he has right foot pain. No ankle or knee pain. He is still able to ambulate. Has not taken anything for symptoms. No other complaint. PAST MEDICAL HISTORY Diagnosis Date Anemia B12 deficiency 06/30/2018 Calculus of kidney 11/23/2017 left ureterolithiasis Crohn's disease of small intestine with complication ([facility]) 03/02/2017 DDD (degenerative disc disease), cervical 02/04/2018 on MRI DDD (degenerative disc disease), lumbar 02/04/2018 on MRI H/O right hemicolectomy 07/2000 Hemorrhoids HTN (hypertension) Iron deficiency anemia due to chronic blood loss 10/08/2018 Obesity, Class II, BMI 35-39.9 06/30/2018 Proximal limb muscle weakness 02/04/2018 neg. myositis, vasculitis, Lyme, WNV, GBS work up. Tachycardia 02/21/2018 Type 2 diabetes mellitus without complication, without long-term current use of insulin ([facility]) 12/15/2022 Vitamin D deficiency 06/30/2018 PAST SURGICAL HISTORY Procedure Laterality Date COLECTOMY PARTIAL W ANASTOM Right 07/2000 Right hemicolectomy [facility] COLONOSCOPY 05/11/2016 Grade 1 internal hemorrhoids, severe inflammation at surgical site COLONOSCOPY 06/23/2005 Crohn's activity at ileocolonic anastamosis COLONOSCOPY 09/17/2006 Persistent surgical anastomotic stricture.Significant inflammation and ulceration on ileal side of anastomosis COLONOSCOPY 05/25/2018 Stenosis of ileocolonic anastomosis, Crohn's disease, hemorrhoids, markedly ulcerated colonic mucosa COLONOSCOPY 02/03/2019 chronic active colitis COLONOSCOPY SCREENING 07/19/2023 Non-bleeding internal hemorrhoids, tubular adenoma EGD 02/03/2019 cervical inlet patch, minimal active inflammation EYE SURGERY HX PAST SURGICAL HISTORY OF 1998 left ankle broken, screws REMV CATARACT EXTRACAP,INSERT LENS Bilateral 04/2023 ALLERGIES Ciprofloxacin MEDICATIONS cyanocobalamin 1,000 mcg/mL INJECT 1 ML INTRAMUSCULARLY ONCE EVERY MONTH. budesonide, enteric coated (ENTOCORT EC) 3 mg 24 hr capsule Take 3 capsules by mouth once daily. carvedilol (COREG) 25 mg tablet Take 1 tablet by mouth two times a day. dilTIAZem CR (TIADYLT ER) 360 mg 24 hr capsule Take 1 capsule by mouth once daily. semaglutide (OZEMPIC) 1 mg/dose (4 mg/3 mL) pen Inject 1 mg subcutaneously one time a week. losartan (COZAAR) 100 mg tablet Take 1 tablet by mouth once daily. spironolactone (ALDACTONE) 25 mg tablet Take 1 tablet by mouth once daily. blood sugar diagnostic (BLOOD GLUCOSE TEST) test strip Test blood sugar(s) 1 times daily. Dx: Type 2 DM - Controlled E11.9 Insulin: No Lancets lancets Test blood sugar(s) 1 times daily. Dx: Type 2 DM - Controlled E11.9 Insulin: No ergocalciferol 50,000 unit capsule (VITAMIN D2, DRISDOL) Take 1 capsule by mouth one time a week. Wednesday vedolizumab (ENTYVIO) 300 mg injection 300mg Intravenous every 8 weeks. omeprazole (PRILOSEC) 40 mg capsule Take 1 capsule by mouth once daily as needed. docusate sodium (COLACE ORAL) Take by mouth once daily. FAMILY HISTORY Problem Relation Age of Onset Colon Cancer Paternal Uncle 55 Breast Cancer Maternal Aunt Cancer Maternal Grandfather renal cancer No Known Problems Mother Coronary Artery Disease Father 72 CABG Hypertension Father No Known Problems Brother No Known Problems Maternal Grandmother No Known Problems Paternal Grandmother Alzheimer's Disease Paternal Grandfather Social History Tobacco Use Smoking status: Former Types: Cigarettes Smokeless tobacco: Never Tobacco comments: Temporary smoker during college Vaping Use Vaping status: Never Used Substance Use Topics Alcohol use: Yes Comment: occasional Drug use: Never Review of Systems Constitutional: Negative for chills and fever. HENT: Negative for congestion and sore throat. Respiratory: Negative for cough and shortness of breath. Gastrointestinal: Negative for diarrhea and vomiting. Musculoskeletal: Positive for arthralgias. Objective BP 116/78 (BP Position: Sitting) Pulse 103 Temp 36.2 ?C (97.2 ?F) Resp 16 Wt 106 kg (233 lb 11 oz) SpO2 97% BMI 35.53 kg/m? Physical Exam Vitals and nursing note reviewed. Constitutional: General: He is not in acute distress. Appearance: Normal appearance. He is not toxic-appearing. Cardiovascular: Rate and Rhythm: Normal rate and r (more content not included)... [facility] 07-28-2024 History of Present illness Narrative This note was created using Exopriseriter. Subjective Annabella Chapa is a 43 year old male. HPI 43-year-old male presents for fall. Patient states yesterday evening he was carrying his son down the stairs when he fell and fell onto his right side. He is having right sided rib pain and right foot pain. He denies hitting his head or losing consciousness. No neck pain. He is not on any blood thinners. He has no difficulty breathing or chest pain, just reports rib pain on right side. He states he has right foot pain. No ankle or knee pain. He is still able to ambulate. Has not taken anything for symptoms. No other complaint. PAST MEDICAL HISTORY Diagnosis Date Anemia B12 deficiency 06/30/2018 Calculus of kidney 11/23/2017 left ureterolithiasis Crohn's disease of small intestine with complication ([facility]) 03/02/2017 DDD (degenerative disc disease), cervical 02/04/2018 on MRI DDD (degenerative disc disease), lumbar 02/04/2018 on MRI H/O right hemicolectomy 07/2000 Hemorrhoids HTN (hypertension) Iron deficiency anemia due to chronic blood loss 10/08/2018 Obesity, Class II, BMI 35-39.9 06/30/2018 Proximal limb muscle weakness 02/04/2018 neg. myositis, vasculitis, Lyme, WNV, GBS work up. Tachycardia 02/21/2018 Type 2 diabetes mellitus without complication, without long-term current use of insulin ([facility]) 12/15/2022 Vitamin D deficiency 06/30/2018 PAST SURGICAL HISTORY Procedure Laterality Date COLECTOMY PARTIAL W ANASTOM Right 07/2000 Right hemicolectomy [facility] COLONOSCOPY 05/11/2016 Grade 1 internal hemorrhoids, severe inflammation at surgical site COLONOSCOPY 06/23/2005 Crohn's activity at ileocolonic anastamosis COLONOSCOPY 09/17/2006 Persistent surgical anastomotic stricture.Significant inflammation and ulceration on ileal side of anastomosis COLONOSCOPY 05/25/2018 Stenosis of ileocolonic anastomosis, Crohn's disease, hemorrhoids, markedly ulcerated colonic mucosa COLONOSCOPY 02/03/2019 chronic active colitis COLONOSCOPY SCREENING 07/19/2023 Non-bleeding internal hemorrhoids, tubular adenoma EGD 02/03/2019 cervical inlet patch, minimal active inflammation EYE SURGERY HX PAST SURGICAL HISTORY OF 1998 left ankle broken, screws REMV CATARACT EXTRACAP,INSERT LENS Bilateral 04/2023 ALLERGIES Ciprofloxacin MEDICATIONS cyanocobalamin 1,000 mcg/mL INJECT 1 ML INTRAMUSCULARLY ONCE EVERY MONTH. budesonide, enteric coated (ENTOCORT EC) 3 mg 24 hr capsule Take 3 capsules by mouth once daily. carvedilol (COREG) 25 mg tablet Take 1 tablet by mouth two times a day. dilTIAZem CR (TIADYLT ER) 360 mg 24 hr capsule Take 1 capsule by mouth once daily. semaglutide (OZEMPIC) 1 mg/dose (4 mg/3 mL) pen Inject 1 mg subcutaneously one time a week. losartan (COZAAR) 100 mg tablet Take 1 tablet by mouth once daily. spironolactone (ALDACTONE) 25 mg tablet Take 1 tablet by mouth once daily. blood sugar diagnostic (BLOOD GLUCOSE TEST) test strip Test blood sugar(s) 1 times daily. Dx: Type 2 DM - Controlled E11.9 Insulin: No Lancets lancets Test blood sugar(s) 1 times daily. Dx: Type 2 DM - Controlled E11.9 Insulin: No ergocalciferol 50,000 unit capsule (VITAMIN D2, DRISDOL) Take 1 capsule by mouth one time a week. Wednesday vedolizumab (ENTYVIO) 300 mg injection 300mg Intravenous every 8 weeks. omeprazole (PRILOSEC) 40 mg capsule Take 1 capsule by mouth once daily as needed. docusate sodium (COLACE ORAL) Take by mouth once daily. FAMILY HISTORY Problem Relation Age of Onset Colon Cancer Paternal Uncle 55 Breast Cancer Maternal Aunt Cancer Maternal Grandfather renal cancer No Known Problems Mother Coronary Artery Disease Father 72 CABG Hypertension Father No Known Problems Brother No Known Problems Maternal Grandmother No Known Problems Paternal Grandmother Alzheimer's Disease Paternal Grandfather Social History Tobacco Use Smoking status: Former Types: Cigarettes Smokeless tobacco: Never Tobacco comments: Temporary smoker during college Vaping Use Vaping status: Never Used Substance Use Topics Alcohol use: Yes Comment: occasional Drug use: Never Review of Systems Constitutional: Negative for chills and fever. HENT: Negative for congestion and sore throat. Respiratory: Negative for cough and shortness of breath. Gastrointestinal: Negative for diarrhea and vomiting. Musculoskeletal: Positive for arthralgias. Objective BP 116/78 (BP Position: Sitting) Pulse 103 Temp 36.2 C (97.2 F) Resp 16 Wt 106 kg (233 lb 11 oz) SpO2 97% BMI 35.53 kg/m Physical Exam Vitals and nursing note reviewed. Constitutional: General: He is not in acute distress. Appearance: Normal appearance. He is not toxic-appearing. Cardiovascular: Rate and Rhythm: Normal rate and regular rhythm. Pulmonary: Effort: Pulmonary effort is normal. Breath sounds: Normal breath sounds. Chest: Chest wall: Tenderness present. No deformity, swelling or crepitus. Comments: Tenderness over right anterior ribs. No swelling or deformity. No crepitation. No bruising. Lungs clear. Musculoskeletal: Right foot: Normal range of motion and normal capillary refill. Swelling, tenderness and bony tenderness present. Normal pulse. Comments: Patient has swelling, tenderness and bruising over dorsum of right foot. Tenderness over the distal fourth and fifth metatarsals. Nontender toes. Normal ROM of the toes and foot. DP and PT pulses 2+. Normal sensation all toes. Nontender ankle. Achilles intact. Skin: General: Skin is warm and dry. Neurological: Mental Status: He is alert. Assessment and Plan ASSESSMENT/PLAN: 1. Foot pain, right - ICD9: 729.5, ICD10: M79.671 (primary diagnosis) - XR FOOT GENERAL 3V AP/LAT/OBL RIGHT-reveals nondisplaced fractures of fourth and fifth metatarsals. -Consult to orthopedics placed for fracture -[employer] walking boot applied. iPad form completed. 2. Rib pain on right side - ICD9: 786.50, ICD10: R07.81 - XR RIBS/CHEST 3V AP RIB/OBLS/CXR RIGHT-suspected acute fracture of anterior aspect of right seventh rib. Nondisplaced. Fractures of lateral aspect of right seventh and eighth ribs with callus consistent with old fractures. 3. Closed nondisplaced fracture of fourth metatarsal bone of right foot, initial encounter - ICD9: 825.25, ICD10: S92.344A - CONSULT PANEL TO ORTHOPAEDICS 4. Closed nondisplaced fracture of fifth metatarsal bone of right foot, initial encounter - ICD9: 825.25, ICD10: S92.354A - CONSULT PANEL TO ORTHOPAEDICS 5. Closed fracture of one rib of right side, initial encounter - ICD9: 807.01, ICD10: S22.31XA -Rest, ice. Tylenol/Motrin as needed for pain -Follow-up as needed Diagnosis and treatment plan were discussed and questions were answered to the patient's satisfaction. Pt acknowledged understanding of concepts and follow up plan. Specific signs and symptoms that would indicate the need for higher level of care were discussed in detail warranting prompt ER evaluation. SAMANTHA Theodore documented in this encounter [facility] 06-16-2024 History of Present illness Narrative VIRTUAL VISIT FOLLOW UP I have communicated my name and active licensure. The patient's identity and physical location were verified at the time of this visit. Either the patient or their legal sales representative cash registers has been informed of the risks and benefits of -- and alternatives to -- treatment through a remote evaluation and consents to proceed with the evaluation remotely. I had a virtual visit with Mr. Chapa today for follow up of Crohn's. PMHx of anemia, B12 deficiency, HTN, iron deficiency anemia, obesity, DM II. Surg hx positive for right hemicolectomy. UPDATED HISTORY: On Entyvio q 8 weeks for past 5 years, Entocort daily for several years. Reports clinically everything has been very stable for him. Bms are daily, formed consistency, no blood Denies abd pain, weight loss, N/V. CTE 02/2023 IMPRESSION: Ileocolic anastomotic and distal ileal strictures with mild findings of active inflammation. 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 RIGHT nephrolithiasis. No abscess. Colon 07/2023 Impression: - One medium polyp in the sigmoid colon, removed with a hot snare. Resected and retrieved. - Patent [id number] ileo-colonic anastomosis, characterized by healthy appearing mucosa. - Non-bleeding internal hemorrhoids. - The examination was otherwise normal. FINAL DIAGNOSIS A. Colon, sigmoid, polyp, polypectomy: -Tubular adenoma. OV 01/2023 Annabella Chapa is a 42 year old male PMHx of anemia, B12 deficiency, HTN, iron deficiency anemia, obesity, DM II, here today for Crohns (No concerns). Surg hx positive for right hemicolectomy. On Entyvio q 8 weeks for past 3 years, Entocort daily for years. Bms are 2-3 per day, formed, no blood. Getting cataracts, got concerns about long-term steroid usage as well given new dx of DM. Recently started Ozempic 12/2022. Denies abd pain, weight loss. PAST MEDICAL HISTORY Diagnosis Date Anemia B12 deficiency 06/30/2018 Calculus of kidney 11/23/2017 left ureterolithiasis Crohn's disease of small intestine with complication (HCC) 03/02/2017 DDD (degenerative disc disease), cervical 02/04/2018 on MRI DDD (degenerative disc disease), lumbar 02/04/2018 on MRI H/O right hemicolectomy 07/2000 Hemorrhoids HTN (hypertension) Iron deficiency anemia due to chronic blood loss 10/08/2018 Obesity, Class II, BMI 35-39.9 06/30/2018 Proximal limb muscle weakness 02/04/2018 neg. myositis, vasculitis, Lyme, WNV, GBS work up. Tachycardia 02/21/2018 Type 2 diabetes mellitus without complication, without long-term current use of insulin (HCC) 12/15/2022 Vitamin D deficiency 06/30/2018 PAST SURGICAL HISTORY Procedure Laterality Date COLECTOMY PARTIAL W ANASTOM Right 07/2000 Right hemicolectomy [facility] COLONOSCOPY 05/11/2016 Grade 1 internal hemorrhoids, severe inflammation at surgical site COLONOSCOPY 06/23/2005 Crohn's activity at ileocolonic anastamosis COLONOSCOPY 09/17/2006 Persistent surgical anastomotic stricture.Significant inflammation and ulceration on ileal side of anastomosis COLONOSCOPY 05/25/2018 Stenosis of ileocolonic anastomosis, Crohn's disease, hemorrhoids, markedly ulcerated colonic mucosa COLONOSCOPY 02/03/2019 chronic active colitis COLONOSCOPY SCREENING 07/19/2023 Non-bleeding internal hemorrhoids, tubular adenoma EGD 02/03/2019 cervical inlet patch, minimal active inflammation EYE SURGERY HX PAST SURGICAL HISTORY OF 1998 left ankle broken, screws REMV CATARACT EXTRACAP,INSERT LENS Bilateral 04/2023 FAMILY HISTORY Problem Relation Age of Onset Colon Cancer Paternal Uncle 55 Breast Cancer Maternal Aunt Cancer Maternal Grandfather renal cancer No Known Problems Mother Coronary Artery Disease Father 72 CABG Hypertension Father No Known Problems Brother No Known Problems Maternal Grandmother No Known Problems Paternal Grandmother Alzheimer's Disease Paternal Grandfather Social History Tobacco Use Smoking status: Former Types: Cigarettes Smokeless tobacco: Never Tobacco comments: Temporary smoker during college Vaping Use Vaping status: Never Used Substance Use Topics Alcohol use: Yes Comment: occasional Drug use: Never Current Outpatient Medications Medication Sig Dispense Refill cyanocobalamin 1,000 mcg/mL INJECT 1 ML INTRAMUSCULARLY ONCE EVERY MONTH. 3 mL 0 budesonide, enteric coated (ENTOCORT EC) 3 mg 24 hr capsule Take 3 capsules by mouth once daily. 270 capsule 1 carvedilol (COREG) 25 mg tablet Take 1 tablet by mouth two times a day. 180 tablet 1 dilTIAZem CR (TIADYLT ER) 360 mg 24 hr capsule Take 1 capsule by mouth once daily. 90 capsule 1 semaglutide (OZEMPIC) 1 mg/dose (4 mg/3 mL) pen Inject 1 mg subcutaneously one time a week. 9 mL 3 losartan (COZAAR) 100 mg tablet Take 1 tablet by mouth once daily. 90 tablet 2 spironolactone (ALDACTONE) 25 mg tablet Take 1 tablet by mouth once daily. 90 tablet 3 blood sugar diagnostic (BLOOD GLUCOSE TEST) test strip Test blood sugar(s) 1 times daily. Dx: Type 2 DM - Controlled E11.9 Insulin: No 50 Strip 11 Lancets lancets Test blood sugar(s) 1 times daily. Dx: Type 2 DM - Controlled E11.9 Insulin: No 100 Each 11 ergocalciferol 50,000 unit capsule (VITAMIN D2, DRISDOL) Take 1 capsule by mouth one time a week. Wednesday 90 capsule 3 vedolizumab (ENTYVIO) 300 mg injection 300mg Intravenous every 8 weeks. 1 Each 6 omeprazole (PRILOSEC) 40 mg capsule Take 1 capsule by mouth once daily as needed. docusate sodium (COLACE ORAL) Take by mouth once daily. No current facility-administered medications for this visit. ALLERGIES Allergen Reactions Ciprofloxacin Intolerance Hallucination REVIEW OF SYSTEMS: PAIN ASSESSMENT: Negative for pain, history of chronic pain, or current treatment for a chronic pain condition. GENERAL: No weight loss, malaise or fevers RESPIRATORY: Negative for cough, hemoptysis, wheezing, COPD, dyspnea or shortness of breath CARDIOVASCULAR: Negative for chest pain, leg swelling, hypertension, CHF or palpitations GI: No nausea, vomiting, or diarrhea : No history of dysuria, frequency or incontinence PHYSICAL FINDINGS OF NOTE: General - Normal, healthy, cooperative, in no acute distress Able to interact verbally by video conference Psych - ORIENTATION: normal to time place, person and situation Mood/Affect: AFFECT AND MOOD: Normal Head/Neuro - Normal size and shape Facial appearance normal Pulmonary - respiratory effort normal Cardiovascular - patient describes extremities normal, warm, no cyanosis,no clubbing, and no edema Abdominal - Not performed Skin - abnormal lesions not visualized Motor - patient seen sitting with Normal appearing strength and coordination Anorectal exam - Not Performed Assessment/Plan (K50.80) Crohn's disease of both small and large intestine without complication (HCC) (primary encounter diagnosis) (Z11.59) Special screening examination for viral disease 1. Crohn's disease of both small and large intestine without complication (HCC) - Clinically doing well with Entyvio infusions, Entocort 3 tabs daily - Discussed obtaining updated CTE given h/o penetrating disease and as I have been wanting to slowly taper the Entocort. Pt declined for this year. Penetrating disease stable on last exam 2022 - Offered option to change to Entyvio SQ q 2 weeks which pt is interested in. Will have office contact insurance regarding coverage options 2. Special screening examination for viral disease - BLOOD TB SCREEN, INCUBATED; Future - HEPATITIS B SURFACE ANTIGEN; Future Follow up in office 12 months/PRN. I spent a total of 10 minutes on the date of the service which included preparing to see the patient, [id number] patient care, completing clinical documentation, obtaining and/or reviewing separately obtained history, performing a medically appropriate examination, counseling and educating the patient/family/caregiver, ordering medications, tests, or procedures, communicating with other HCPs (not separately reported), independently interpreting results (not separately reported), communicating results to the patient/family/caregiver, and care coordination (not separately reported). Roxanne Montaño PA-C June 16, 2024 7:36 AM documented in this encounter [facility] 06-16-2024 Note HNO ID: [id number] Author: ROXANNE MONTAÑO PA-C Service: ? Author Type: Physician Security Installer Type: Progress Notes Filed: 06/16/2024 07:39 Note Text: VIRTUAL VISIT FOLLOW UP I have communicated my name and active licensure. The patient's identity and physical location were verified at the time of this visit. Either the patient or their legal sales representative cash registers has been informed of the risks and benefits of -- and alternatives to -- treatment through a remote evaluation and consents to proceed with the evaluation remotely. I had a virtual visit with Mr. Chapa today for follow up of Crohn's. PMHx of anemia, B12 deficiency, HTN, iron deficiency anemia, obesity, DM II. Surg hx positive for right hemicolectomy. UPDATED HISTORY: On Entyvio q 8 weeks for past 5 years, Entocort daily for several years. Reports clinically everything has been very stable for him. Bms are daily, formed consistency, no blood Denies abd pain, weight loss, N/V. CTE 02/2023 IMPRESSION: Ileocolic anastomotic and distal ileal strictures with mild findings of active inflammation. 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 RIGHT nephrolithiasis. No abscess. Colon 07/2023 Impression: - One medium polyp in the sigmoid colon, removed with a hot snare. Resected and retrieved. - Patent [id number] ileo-colonic anastomosis, characterized by healthy appearing mucosa. - Non-bleeding internal hemorrhoids. - The examination was otherwise normal. FINAL DIAGNOSIS A. Colon, sigmoid, polyp, polypectomy: -Tubular adenoma. OV 01/2023 Annabella Chapa is a 42 year old male PMHx of anemia, B12 deficiency, HTN, iron deficiency anemia, obesity, DM II, here today for Crohns (No concerns). Surg hx positive for right hemicolectomy. On Entyvio q 8 weeks for past 3 years, Entocort daily for years. Bms are 2-3 per day, formed, no blood. Getting cataracts, got concerns about long-term steroid usage as well given new dx of DM. Recently started Ozempic 12/2022. Denies abd pain, weight loss. PAST MEDICAL HISTORY Diagnosis Date Anemia B12 deficiency 06/30/2018 Calculus of kidney 11/23/2017 left ureterolithiasis Crohn's disease of small intestine with complication (HCC) 03/02/2017 DDD (degenerative disc disease), cervical 02/04/2018 on MRI DDD (degenerative disc disease), lumbar 02/04/2018 on MRI H/O right hemicolectomy 07/2000 Hemorrhoids HTN (hypertension) Iron deficiency anemia due to chronic blood loss 10/08/2018 Obesity, Class II, BMI 35-39.9 06/30/2018 Proximal limb muscle weakness 02/04/2018 neg. myositis, vasculitis, Lyme, WNV, GBS work up. Tachycardia 02/21/2018 Type 2 diabetes mellitus without complication, without long-term current use of insulin (HCC) 12/15/2022 Vitamin D deficiency 06/30/2018 PAST SURGICAL HISTORY Procedure Laterality Date COLECTOMY PARTIAL W ANASTOM Right 07/2000 Right hemicolectomy [facility] COLONOSCOPY 05/11/2016 Grade 1 internal hemorrhoids, severe inflammation at surgical site COLONOSCOPY 06/23/2005 Crohn's activity at ileocolonic anastamosis COLONOSCOPY 09/17/2006 Persistent surgical anastomotic stricture.Significant inflammation and ulceration on ileal side of anastomosis COLONOSCOPY 05/25/2018 Stenosis of ileocolonic anastomosis, Crohn's disease, hemorrhoids, markedly ulcerated colonic mucosa COLONOSCOPY 02/03/2019 chronic active colitis COLONOSCOPY SCREENING 07/19/2023 Non-bleeding internal hemorrhoids, tubular adenoma EGD 02/03/2019 cervical inlet patch, minimal active inflammation EYE SURGERY HX PAST SURGICAL HISTORY OF 1998 left ankle broken, screws REMV CATARACT EXTRACAP,INSERT LENS Bilateral 04/2023 FAMILY HISTORY Problem Relation Age of Onset Colon Cancer Paternal Uncle 55 Breast Cancer Maternal Aunt Cancer Maternal Grandfather renal cancer No Known Problems Mother Coronary Artery Disease Father 72 CABG Hypertension Father No Known Problems Brother No Known Problems Maternal Grandmother No Known Problems Paternal Grandmother Alzheimer's Disease Paternal Grandfather Social History Tobacco Use Smoking status: Former Types: Cigarettes Smokeless tobacco: Never Tobacco comments: Temporary smoker during college Vaping Use Vaping status: Never Used Substance Use Topics Alcohol use: Yes Comment: occasional Drug use: Never Current Outpatient Medications Medication Sig Dispense Refill cyanocobalamin 1,000 mcg/mL INJECT 1 ML INTRAMUSCULARLY ONCE EVERY MONTH. 3 mL 0 budesonide, enteric coated (ENTOCORT EC) 3 mg 24 hr capsule Take 3 capsules by mouth once daily. 270 capsule 1 carvedilol (COREG) 25 mg tablet Take 1 tablet by mouth two times a day. 180 tablet 1 dilTIAZem CR (TIADYLT ER) 360 mg 24 hr capsule Take 1 capsule by mouth once daily. 90 capsule 1 semaglutide (OZEMPIC) 1 mg/dose (4 mg/3 mL) pen Inject (more content not included)... [facility] 06-09-2024 Telephone encounter Note Patient phones requesting refills as follows: Appt 07/12/24 Requested Prescriptions Pending Prescriptions Disp Refills cyanocobalamin 1,000 mcg/mL [Pharmacy Med Name: CYANOCOBALAMIN 1,000 MCG/ML VL] 3 mL 0 Sig: INJECT 1 ML INTRAMUSCULARLY ONCE EVERY MONTH. Please review and advise. Abe Holley MA [facility] 06-09-2024 Miscellaneous Notes Patient phones requesting refills as follows: Appt 07/12/24 Requested Prescriptions Pending Prescriptions Disp Refills cyanocobalamin 1,000 mcg/mL [Pharmacy Med Name: CYANOCOBALAMIN 1,000 MCG/ML VL] 3 mL 0 Sig: INJECT 1 ML INTRAMUSCULARLY ONCE EVERY MONTH. Please review and advise. Abe Holley MA documented in this encounter [facility] 04-05-2024 Instructions Farida Sloan APRN.CNP - 04/05/2024 1:43 PM EST Continue same medications. Start augmentin. Recheck in 6 months. I'll put orders for labs in. documented in this encounter [facility] 04-05-2024 Note HNO ID: [id number] Author: FARIDA SLOAN APRN.CNP Service: ? Author Type: Nurse Practitioner Type: Progress Notes Filed: 04/07/2024 23:11 Note Text: This is a 43 year old male who presents today with: Patient presents with: Recheck: 6 month follow up HISTORY OF PRESENT ILLNESS: Annabella Chapa is a 43 year old male. Patient presents with: Recheck: 6 month follow up Sick for the last 1 1/2 weeks. Refers that he has been tired. Will feel like it is sitting in his chest. Cough - bright neon green mucus. HTN: Patient is compliant with meds Yes Monitors bp at home: no -- gets checked when he has infusions. Denies side effects: Yes. Chest pain: No. Dyspnea: No. Edema: a little. . Palpitations: No. Syncope: No. Headache: No. Dizziness: No. Crohns Been good. Has upcoming appt with GI. DM: Reports overall feeling well. Medication side effects: No Home sugar checks: no Hypoglycemic spells: No. Watching diet: just trying to keep sodium down. Unexpected weight loss: No. Polyuria, polydipsia: No. Vision Changes: No. Foot lesions or numbness or pain: No. PAST MEDICAL HISTORY: PAST MEDICAL HISTORY Diagnosis Date Anemia B12 deficiency 06/30/2018 Calculus of kidney 11/23/2017 left ureterolithiasis Crohn's disease of small intestine with complication (HCC) 03/02/2017 DDD (degenerative disc disease), cervical 02/04/2018 on MRI DDD (degenerative disc disease), lumbar 02/04/2018 on MRI H/O right hemicolectomy 07/2000 Hemorrhoids HTN (hypertension) Iron deficiency anemia due to chronic blood loss 10/08/2018 Obesity, Class II, BMI 35-39.9 06/30/2018 Proximal limb muscle weakness 02/04/2018 neg. myositis, vasculitis, Lyme, WNV, GBS work up. Tachycardia 02/21/2018 Type 2 diabetes mellitus without complication, without long-term current use of insulin (HCC) 12/15/2022 Vitamin D deficiency 06/30/2018 PAST SURGICAL HISTORY Procedure Laterality Date COLECTOMY PARTIAL W ANASTOM Right 07/2000 Right hemicolectomy [facility] COLONOSCOPY 05/11/2016 Grade 1 internal hemorrhoids, severe inflammation at surgical site COLONOSCOPY 06/23/2005 Crohn's activity at ileocolonic anastamosis COLONOSCOPY 09/17/2006 Persistent surgical anastomotic stricture.Significant inflammation and ulceration on ileal side of anastomosis COLONOSCOPY 05/25/2018 Stenosis of ileocolonic anastomosis, Crohn's disease, hemorrhoids, markedly ulcerated colonic mucosa COLONOSCOPY 02/03/2019 chronic active colitis COLONOSCOPY SCREENING 07/19/2023 Non-bleeding internal hemorrhoids, tubular adenoma EGD 02/03/2019 cervical inlet patch, minimal active inflammation EYE SURGERY HX PAST SURGICAL HISTORY OF 1998 left ankle broken, screws REMV CATARACT EXTRACAP,INSERT LENS Bilateral 04/2023 ALLERGIES Ciprofloxacin MEDICATIONS Current Outpatient Medications Medication Sig budesonide, enteric coated (ENTOCORT EC) 3 mg 24 hr capsule Take 3 capsules by mouth once daily. carvedilol (COREG) 25 mg tablet Take 1 tablet by mouth two times a day. dilTIAZem CR (TIADYLT ER) 360 mg 24 hr capsule Take 1 capsule by mouth once daily. cyanocobalamin 1,000 mcg/mL INJECT 1 ML INTRAMUSCULARLY ONCE EVERY MONTH. semaglutide (OZEMPIC) 1 mg/dose (4 mg/3 mL) pen Inject 1 mg subcutaneously one time a week. losartan (COZAAR) 100 mg tablet Take 1 tablet by mouth once daily. spironolactone (ALDACTONE) 25 mg tablet Take 1 tablet by mouth once daily. blood sugar diagnostic (BLOOD GLUCOSE TEST) test strip Test blood sugar(s) 1 times daily. Dx: Type 2 DM - Controlled E11.9 Insulin: No Lancets lancets Test blood sugar(s) 1 times daily. Dx: Type 2 DM - Controlled E11.9 Insulin: No ergocalciferol 50,000 unit capsule (VITAMIN D2, DRISDOL) Take 1 capsule by mouth one time a week. Wednesday vedolizumab (ENTYVIO) 300 mg injection 300mg Intravenous every 8 weeks. omeprazole (PRILOSEC) 40 mg capsule Take 1 capsule by mouth once daily as needed. docusate sodium (COLACE ORAL) Take by mouth once daily. No current facility-administered medications for this visit. FAMILY HISTORY Problem Relation Age of Onset Colon Cancer Paternal Uncle 55 Breast Cancer Maternal Aunt Cancer Maternal Grandfather renal cancer No Known Problems Mother Coronary Artery Disease Father 72 CABG Hypertension Father No Known Problems Brother No Known Problems Maternal Grandmother No Known Problems Paternal Grandmother Alzheimer's Disease Paternal Grandfather Social History Tobacco Use Smoking status: Former Types: Cigarettes Smokeless tobacco: Never Tobacco comments: Temporary smoker during college Vaping Use Vaping status: Never Used Substance Use Topics Alcohol use: Yes Comment: occasional Drug use: Never EXAM: BP 124/78 Pulse 96 Resp 16 Wt 106.1 kg (234 lb) SpO2 98% BMI 35.58 kg/m? PHYSICAL EXAM: General Appearance: Well appearing, alert, in no acute distress, well-hydr (more content not included)... [facility] 04-05-2024 History of Present illness Narrative This is a 43 year old male who presents today with: Patient presents with: Recheck: 6 month follow up HISTORY OF PRESENT ILLNESS: Annabella Chapa is a 43 year old male. Patient presents with: Recheck: 6 month follow up Sick for the last 1 1/2 weeks. Refers that he has been tired. Will feel like it is sitting in his chest. Cough - bright neon green mucus. HTN: Patient is compliant with meds Yes Monitors bp at home: no -- gets checked when he has infusions. Denies side effects: Yes. Chest pain: No. Dyspnea: No. Edema: a little. . Palpitations: No. Syncope: No. Headache: No. Dizziness: No. Crohns Been good. Has upcoming appt with GI. DM: Reports overall feeling well. Medication side effects: No Home sugar checks: no Hypoglycemic spells: No. Watching diet: just trying to keep sodium down. Unexpected weight loss: No. Polyuria, polydipsia: No. Vision Changes: No. Foot lesions or numbness or pain: No. PAST MEDICAL HISTORY: PAST MEDICAL HISTORY Diagnosis Date Anemia B12 deficiency 06/30/2018 Calculus of kidney 11/23/2017 left ureterolithiasis Crohn's disease of small intestine with complication (HCC) 03/02/2017 DDD (degenerative disc disease), cervical 02/04/2018 on MRI DDD (degenerative disc disease), lumbar 02/04/2018 on MRI H/O right hemicolectomy 07/2000 Hemorrhoids HTN (hypertension) Iron deficiency anemia due to chronic blood loss 10/08/2018 Obesity, Class II, BMI 35-39.9 06/30/2018 Proximal limb muscle weakness 02/04/2018 neg. myositis, vasculitis, Lyme, WNV, GBS work up. Tachycardia 02/21/2018 Type 2 diabetes mellitus without complication, without long-term current use of insulin (HCC) 12/15/2022 Vitamin D deficiency 06/30/2018 PAST SURGICAL HISTORY Procedure Laterality Date COLECTOMY PARTIAL W ANASTOM Right 07/2000 Right hemicolectomy [facility] COLONOSCOPY 05/11/2016 Grade 1 internal hemorrhoids, severe inflammation at surgical site COLONOSCOPY 06/23/2005 Crohn's activity at ileocolonic anastamosis COLONOSCOPY 09/17/2006 Persistent surgical anastomotic stricture.Significant inflammation and ulceration on ileal side of anastomosis COLONOSCOPY 05/25/2018 Stenosis of ileocolonic anastomosis, Crohn's disease, hemorrhoids, markedly ulcerated colonic mucosa COLONOSCOPY 02/03/2019 chronic active colitis COLONOSCOPY SCREENING 07/19/2023 Non-bleeding internal hemorrhoids, tubular adenoma EGD 02/03/2019 cervical inlet patch, minimal active inflammation EYE SURGERY HX PAST SURGICAL HISTORY OF 1998 left ankle broken, screws REMV CATARACT EXTRACAP,INSERT LENS Bilateral 04/2023 ALLERGIES Ciprofloxacin MEDICATIONS Current Outpatient Medications Medication Sig budesonide, enteric coated (ENTOCORT EC) 3 mg 24 hr capsule Take 3 capsules by mouth once daily. carvedilol (COREG) 25 mg tablet Take 1 tablet by mouth two times a day. dilTIAZem CR (TIADYLT ER) 360 mg 24 hr capsule Take 1 capsule by mouth once daily. cyanocobalamin 1,000 mcg/mL INJECT 1 ML INTRAMUSCULARLY ONCE EVERY MONTH. semaglutide (OZEMPIC) 1 mg/dose (4 mg/3 mL) pen Inject 1 mg subcutaneously one time a week. losartan (COZAAR) 100 mg tablet Take 1 tablet by mouth once daily. spironolactone (ALDACTONE) 25 mg tablet Take 1 tablet by mouth once daily. blood sugar diagnostic (BLOOD GLUCOSE TEST) test strip Test blood sugar(s) 1 times daily. Dx: Type 2 DM - Controlled E11.9 Insulin: No Lancets lancets Test blood sugar(s) 1 times daily. Dx: Type 2 DM - Controlled E11.9 Insulin: No ergocalciferol 50,000 unit capsule (VITAMIN D2, DRISDOL) Take 1 capsule by mouth one time a week. Wednesday vedolizumab (ENTYVIO) 300 mg injection 300mg Intravenous every 8 weeks. omeprazole (PRILOSEC) 40 mg capsule Take 1 capsule by mouth once daily as needed. docusate sodium (COLACE ORAL) Take by mouth once daily. No current facility-administered medications for this visit. FAMILY HISTORY Problem Relation Age of Onset Colon Cancer Paternal Uncle 55 Breast Cancer Maternal Aunt Cancer Maternal Grandfather renal cancer No Known Problems Mother Coronary Artery Disease Father 72 CABG Hypertension Father No Known Problems Brother No Known Problems Maternal Grandmother No Known Problems Paternal Grandmother Alzheimer's Disease Paternal Grandfather Social History Tobacco Use Smoking status: Former Types: Cigarettes Smokeless tobacco: Never Tobacco comments: Temporary smoker during college Vaping Use Vaping status: Never Used Substance Use Topics Alcohol use: Yes Comment: occasional Drug use: Never EXAM: BP 124/78 Pulse 96 Resp 16 Wt 106.1 kg (234 lb) SpO2 98% BMI 35.58 kg/m PHYSICAL EXAM: General Appearance: Well appearing, alert, in no acute distress, well-hydrated, well nourished.. Skin: Skin color, texture, turgor normal, no suspicious rashes or lesions. Head: Normocephalic, no masses, lesions, tenderness or abnormalities. Eyes: Anicteric sclera. Pupils are equally round and reactive to light. Extraocular movements are intact. . Ears: External ears normal, canals clear. Normal TMs bilaterally. Oropharynx: Lips, mucosa, and tongue normal, teeth and gums normal, oropharynx normal. Neck: Supple, no adenopathy; thyroid symmetric, normal size, no bruits. Lungs: Lungs clear to auscultation. No wheezing, rhonchi, rales.. Heart: RRR without murmur, gallop, or rubs. No ectopy. Extremities: No deformities, edema, skin discoloration, clubbing or cyanosis. Good capillary refill. . Neurologic: Gait normal. ASSESSMENT/PLAN: 1. Sinobronchitis - ICD9: 473.9, 490, ICD10: J32.9, J40 (primary diagnosis) Start augmentin. - AMOXICILLIN 875 MG-POTASSIUM CLAVULANATE 125 MG TABLET 2. Vitamin B12 deficiency - ICD9: 266.2, ICD10: E53.8 - VITAMIN B12 3. Type 2 diabetes mellitus without complication, without long-term current use of insulin (HCC) - ICD9: 250.00, ICD10: E11.9 Stable. Recheck labs and appt in 6 months - HEMOGLOBIN A1C - COMPREHENSIVE METABOLIC PANEL 4. Hypertriglyceridemia - ICD9: 272.1, ICD10: E78.1 Recheck in 6 months. - LIPID PANEL BASIC - COMPREHENSIVE METABOLIC PANEL 5. Anemia, unspecified type - ICD9: 285.9, ICD10: D64.9 Stable. - COMPLETE BLOOD COUNT AND DIFFERENTIAL 6. Vitamin D deficiency - ICD9: 268.9, ICD10: E55.9 Stable. - VITAMIN D 25 HYDROXY 7. Essential hypertension - ICD9: 401.9, ICD10: I10 - Controlled - Continue current medications - Recommend home blood pressure monitoring, to bring results to next visit - Encouraged sodium restriction, DASH or Mediterranean diet - Recommend regular aerobic exercise 8. Crohn's disease of small intestine with compication (HCC) - ICD9: 555.0, ICD10: K50.019 Continue per GI. Discussed treatment plan and patient voices understanding. Patient's questions answered appropriately. Medications and potential side effects were discussed and patient voices understanding. Return to the office as scheduled or as needed for worsening/no improvement. Farida Sloan APRN.QUANG documented in this encounter [facility] 04-04-2024 Telephone encounter Note Patient phones requesting refills as follows: Appt 07/12/24 Requested Prescriptions Pending Prescriptions Disp Refills budesonide, enteric coated (ENTOCORT EC) 3 mg 24 hr capsule 270 capsule 1 Sig: Take 3 capsules by mouth once daily. Please review and advise. Vonda Way MA [facility] 04-04-2024 Miscellaneous Notes Patient phones requesting refills as follows: Appt 07/12/24 Requested Prescriptions Pending Prescriptions Disp Refills budesonide, enteric coated (ENTOCORT EC) 3 mg 24 hr capsule 270 capsule 1 Sig: Take 3 capsules by mouth once daily. Please review and advise. Vonda Way MA documented in this encounter [facility] 03-30-2024 Telephone encounter Note Ordered Will need urine also [facility] Work Phone: 03-30-2024 Miscellaneous Notes Ordered Will need urine also Pt came to lab to have fasting labs completed, but orders were cancelled due to past expiration. Pt has upcoming appt on 04/05/24. I have pended labs that he was supposed to have done. Can you please file so I can update pt? Thanks, Nicole Ferreira MA documented in this encounter [facility] 03-30-2024 Telephone encounter Note Pt came to lab to have fasting labs completed, but orders were cancelled due to past expiration. Pt has upcoming appt on 04/05/24. I have pended labs that he was supposed to have done. Can you please file so I can update pt? Thanks, Nicole Ferreira MA [facility] 03-28-2024 Telephone encounter Note Prescription Refill Information The patient has been identified by name and date of : Yes Caregiver verified no other encounters exist for this prescription request: Yes Caregiver confirmed with patient/requestor that no other refills are due, in the near future, with this provider at this time: Yes The last office visit in the department: 09/29/23 Does the patient have a future office visit with this provider/department: Yes, 04/05/24 Requested Prescriptions Pending Prescriptions Disp Refills carvedilol (COREG) 25 mg tablet 180 tablet 1 Sig: Take 1 tablet by mouth two times a day. dilTIAZem CR (TIADYLT ER) 360 mg 24 hr capsule 90 capsule 1 Sig: Take 1 capsule by mouth once daily. Ebenezer Marin LPN March 28, 2024 10:00 AM [facility] 03-28-2024 Miscellaneous Notes Prescription Refill Information The patient has been identified by name and date of : Yes Caregiver verified no other encounters exist for this prescription request: Yes Caregiver confirmed with patient/requestor that no other refills are due, in the near future, with this provider at this time: Yes The last office visit in the department: 09/29/23 Does the patient have a future office visit with this provider/department: Yes, 04/05/24 Requested Prescriptions Pending Prescriptions Disp Refills carvedilol (COREG) 25 mg tablet 180 tablet 1 Sig: Take 1 tablet by mouth two times a day. dilTIAZem CR (TIADYLT ER) 360 mg 24 hr capsule 90 capsule 1 Sig: Take 1 capsule by mouth once daily. Ebenezer Marin LPN March 28, 2024 10:00 AM documented in this encounter [facility] 03-13-2024 Telephone encounter Note Please forward to scheduling, he is due for a yearly appointment. 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 Emelia Barcenas CMA [facility] 03-13-2024 Miscellaneous Notes Please forward to scheduling, he is due for a yearly appointment. 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 Emelia Barcenas CMA documented in this encounter [facility] 01-17-2024 Telephone encounter Note Pt notified via my chart. [facility] 01-17-2024 Miscellaneous Notes Pt notified via my chart. Images from the original note were not included. This has been approved. Prior authorization approved Payer: [facility] [phone] Note from payer: Your PA request has been approved. Additional information will be provided in the approval communication. (Message 1145) Approval Details Authorized from January 17, 2024 to January 16, 2027 Electronic appeal: Not supported View History Notes Time User Attachment Attachment received from payer. 01/17/2024 2:11 PM Cchs, Rx Priorauth In Document Pharmacy Benefits Open Encounter ANNABELLA CHAPA BB [facility]-N [id number] ([facility]) Covered: Retail, Mail Order, Specialty Unknown: Long-Term Care BIN: [id number] : 1980 Group ID: [id number] PCN: [id number] Legal sex: M Group name: [facility] Address: [address] [place] [address] Electronic PA completed. Pt sent in mychart message that he needs a new PA done for Ozempic. Please see message from pt. Nicole Ferreira MA documented in this encounter [facility] 01-17-2024 Telephone encounter Note Images from the original note were not included. This has been approved. Prior authorization approved Payer: [facility] [employer] [phone] Note from payer: Your PA request has been approved. Additional information will be provided in the approval communication. (Message 1145) Approval Details Authorized from January 17, 2024 to January 16, 2027 Electronic appeal: Not supported View History Notes Time User Attachment Attachment received from payer. 01/17/2024 2:11 PM Cchs, Rx Priorauth In Document Pharmacy Benefits Open Encounter ANNABELLA CHAPA [facility]-N [id number] ([facility]) Covered: Retail, Mail Order, Specialty Unknown: Long-Term Care BIN: [id number] : 1980 Group ID: [id number] PCN: [id number] Legal sex: M Group name: [facility] Address: [address] [place] [address] [facility] 01-17-2024 Telephone encounter Note Electronic PA completed. [facility] 01-17-2024 Telephone encounter Note Pt sent in [employer] message that he needs a new PA done for Ozempic. Please see message from pt. Nicole Ferreira MA [facility] 01-17-2024 Telephone encounter Note Pt notified PA was sent to Nurse. TE started. Will keep encounter open incase PA Nurse wants to contact pt through message. Nicole Ferreira MA [facility] 01-17-2024 Miscellaneous Notes Pt notified PA was sent to Nurse. TE started. Will keep encounter open maria teresa SINGH Nurse wants to contact pt through message. Nicole Ferreira MA documented in this encounter [facility] 01-10-2024 Telephone encounter Note Patient has been identified by name and date of : Patient phones for refill(s): Requested Prescriptions Pending Prescriptions Disp Refills semaglutide (OZEMPIC) 1 mg/dose (4 mg/3 mL) pen 9 mL 3 Sig: Inject 1 mg subcutaneously one time a week. Date of last office visit in primary care: 09/29/2023 Date of next office visit in primary care: 04/05/2024 Please advise. Thank you. Grisel Woodward LPN. [facility] Work Phone: 01-10-2024 Miscellaneous Notes Patient has been identified by name and date of : Patient phones for refill(s): Requested Prescriptions Pending Prescriptions Disp Refills semaglutide (OZEMPIC) 1 mg/dose (4 mg/3 mL) pen 9 mL 3 Sig: Inject 1 mg subcutaneously one time a week. Date of last office visit in primary care: 09/29/2023 Date of next office visit in primary care: 04/05/2024 Please advise. Thank you. Grisel Woodward LPN. documented in this encounter [facility] 12-15-2023 Telephone encounter Note Patient phones requesting refills as follows: Requested Prescriptions Pending Prescriptions Disp Refills cyanocobalamin 1,000 mcg/mL [Pharmacy Med Name: CYANOCOBALAMIN 1,000 MCG/ML VL] 3 mL 0 Sig: INJECT 1 ML INTRAMUSCULARLY ONCE EVERY MONTH. budesonide, enteric coated (ENTOCORT EC) 3 mg 24 hr capsule [Pharmacy Med Name: BUDESONIDE EC 3 MG CAPSULE] 270 capsule 0 Sig: take 3 capsules by mouth every day Please review and advise. Vonda Way MA [facility] 12-15-2023 Miscellaneous Notes Patient phones requesting refills as follows: Requested Prescriptions Pending Prescriptions Disp Refills cyanocobalamin 1,000 mcg/mL [Pharmacy Med Name: CYANOCOBALAMIN 1,000 MCG/ML VL] 3 mL 0 Sig: INJECT 1 ML INTRAMUSCULARLY ONCE EVERY MONTH. budesonide, enteric coated (ENTOCORT EC) 3 mg 24 hr capsule [Pharmacy Med Name: BUDESONIDE EC 3 MG CAPSULE] 270 capsule 0 Sig: take 3 capsules by mouth every day Please review and advise. Vonda Way MA documented in this encounter [facility] 10-18-2023 History of Present illness Narrative Therapy plan signed. documented in this encounter [facility] 09-29-2023 Instructions Farida Sloan APRN.CNP - 09/29/2023 1:31 PM EDT Continue the same medications. Recheck in 6 months. Fasting labs in November. documented in this encounter [facility] 09-29-2023 History of Present illness Narrative This is a 42 year old male who presents today with: Patient presents with: Recheck: 6 month follow up HISTORY OF PRESENT ILLNESS: Annabella Chapa is a 42 year old male. Patient presents with: Recheck: 6 month follow up HTN: Patient is compliant with meds Yes Monitors bp at home: once in a while. Denies side effects: No. Chest pain: No. Dyspnea: No. Edema: a little, but improved w/ spironolactone. Palpitations: No. Syncope: No. Headache: No. Dizziness: No. DM: Reports overall feeling well. Medication side effects: No. Home sugar checks: once or twice when he started th ozempic. Hypoglycemic spells: No. Watching diet: Yes - watching sodium Unexpected weight loss: No. Polyuria, polydipsia: No. Vision Changes: No. Had cataract surgery. Foot lesions or numbness or pain: No. Crohns: Stable. Had recent scope. PAST MEDICAL HISTORY: PAST MEDICAL HISTORY Diagnosis Date Anemia B12 deficiency 06/30/2018 Calculus of kidney 11/23/2017 left ureterolithiasis Crohn's disease of small intestine with complication ([facility]) 03/02/2017 DDD (degenerative disc disease), cervical 02/04/2018 on MRI DDD (degenerative disc disease), lumbar 02/04/2018 on MRI H/O right hemicolectomy 07/2000 Hemorrhoids HTN (hypertension) Iron deficiency anemia due to chronic blood loss 10/08/2018 Obesity, Class II, BMI 35-39.9 06/30/2018 Proximal limb muscle weakness 02/04/2018 neg. myositis, vasculitis, Lyme, WNV, GBS work up. Tachycardia 02/21/2018 Type 2 diabetes mellitus without complication, without long-term current use of insulin ([facility]) 12/15/2022 Vitamin D deficiency 06/30/2018 PAST SURGICAL HISTORY Procedure Laterality Date COLECTOMY PARTIAL W ANASTOM Right 07/2000 Right hemicolectomy [facility] COLONOSCOPY 05/11/2016 Grade 1 internal hemorrhoids, severe inflammation at surgical site COLONOSCOPY 06/23/2005 Crohn's activity at ileocolonic anastamosis COLONOSCOPY 09/17/2006 Persistent surgical anastomotic stricture.Significant inflammation and ulceration on ileal side of anastomosis COLONOSCOPY 05/25/2018 Stenosis of ileocolonic anastomosis, Crohn's disease, hemorrhoids, markedly ulcerated colonic mucosa COLONOSCOPY 02/03/2019 chronic active colitis COLONOSCOPY SCREENING 07/19/2023 Non-bleeding internal hemorrhoids, tubular adenoma EGD 02/03/2019 cervical inlet patch, minimal active inflammation EYE SURGERY HX PAST SURGICAL HISTORY OF 1998 left ankle broken, screws REMV CATARACT EXTRACAP,INSERT LENS Bilateral 04/2023 ALLERGIES Ciprofloxacin MEDICATIONS Current Outpatient Medications Medication Sig spironolactone (ALDACTONE) 25 mg tablet Take 1 tablet by mouth once daily. budesonide, enteric coated (ENTOCORT EC) 3 mg 24 hr capsule take 3 capsules by mouth every day semaglutide (OZEMPIC) 1 mg/dose (4 mg/3 mL) pen Inject 1 mg subcutaneously one time a week. dilTIAZem CR (TIADYLT ER) 360 mg 24 hr capsule Take 1 capsule by mouth once daily. carvedilol (COREG) 25 mg tablet Take 1 tablet by mouth two times a day. losartan (COZAAR) 100 mg tablet Take 1 tablet by mouth once daily. blood sugar diagnostic (BLOOD GLUCOSE TEST) test strip Test blood sugar(s) 1 times daily. Dx: Type 2 DM - Controlled E11.9 Insulin: No Lancets lancets Test blood sugar(s) 1 times daily. Dx: Type 2 DM - Controlled E11.9 Insulin: No cyanocobalamin 1,000 mcg/mL Inject 1 mL intramuscularly once every month. ergocalciferol 50,000 unit capsule (VITAMIN D2, DRISDOL) Take 1 capsule by mouth one time a week. Wednesday vedolizumab (ENTYVIO) 300 mg injection 300mg Intravenous every 8 weeks. omeprazole (PRILOSEC) 40 mg capsule Take 1 capsule by mouth once daily as needed. docusate sodium (COLACE ORAL) Take by mouth once daily. No current facility-administered medications for this visit. FAMILY HISTORY Problem Relation Age of Onset Colon Cancer Paternal Uncle 55 Breast Cancer Maternal Aunt Cancer Maternal Grandfather renal cancer No Known Problems Mother Coronary Artery Disease Father 72 CABG Hypertension Father No Known Problems Brother No Known Problems Maternal Grandmother No Known Problems Paternal Grandmother Alzheimer's Disease Paternal Grandfather Social History Tobacco Use Smoking status: Former Years: 2 Types: Cigarettes Smokeless tobacco: Never Tobacco comments: Temporary smoker during college Vaping Use Vaping Use: Never used Substance Use Topics Alcohol use: Yes Comment: occasional Drug use: Never EXAM: BP 122/78 Pulse 92 Resp 16 Wt 108 kg (238 lb) SpO2 97% BMI 36.19 kg/m PHYSICAL EXAM: General Appearance: Well appearing, alert, in no acute distress, well-hydrated, well nourished.. Skin: Skin color, texture, turgor normal, no suspicious rashes or lesions. Head: Normocephalic, no masses, lesions, tenderness or abnormalities. Eyes: Anicteric sclera. Extraocular movements are intact. . Neck: Supple, no adenopathy; thyroid symmetric, normal size, no bruits. Lungs: Lungs clear to auscultation. No wheezing, rhonchi, rales.. Heart: RRR without murmur, gallop, or rubs. No ectopy. Abdomen: Abdomen soft, non-tender. Bowel sounds normal. No masses, organomegaly. Extremities: No deformities, edema, skin discoloration, clubbing or cyanosis. Good capillary refill. . Neurologic: Gait normal. ASSESSMENT/PLAN: 1. Hypertension, essential - ICD9: 401.9, ICD10: I10 (primary diagnosis) - Controlled - Improving control - Continue current medications - Recommend home blood pressure monitoring, to bring results to next visit - Encouraged sodium restriction, DASH or Mediterranean diet - Recommend regular aerobic exercise - DILTIAZEM CR 360 MG CAP - SPIRONOLACTONE 25 MG TABLET - COMPLETE BLOOD COUNT AND DIFFERENTIAL - COMPREHENSIVE METABOLIC PANEL 2. Encounter for immunization - ICD9: V03.89, ICD10: Z23 - PNEUMOCOCCAL VACCINE, 20 VALENT (PREVNAR 20) 3. Type 2 diabetes mellitus without complication, without long-term current use of insulin (HCC) - ICD9: 250.00, ICD10: E11.9 - Controlled - Continue current medications - HEMOGLOBIN A1C 4. Hypertriglyceridemia - ICD9: 272.1, ICD10: E78.1 - LIPID PANEL BASIC Discussed treatment plan and patient voices understanding. Patient's questions answered appropriately. Medications and potential side effects were discussed and patient voices understanding. Return to the office as scheduled or as needed for worsening/no improvement. Farida Sloan APRN.[employer] documented in this encounter [facility] 07-19-2023 Nurse Note Abdomen soft non-distended. Will continue to monitor. documented in this encounter [facility] 07-19-2023 History and physical note HPI Annabella Chapa is a 42 year old male PMHx of anemia, B12 deficiency, HTN, iron deficiency anemia, obesity, DM II, here today for Crohns (No concerns). Surg hx positive for right hemicolectomy. On Entyvio q 8 weeks for past 3 years, Entocort daily for years. Bms are 2-3 per day, formed, no blood. Getting cataracts, got concerns about long-term steroid usage as well given new dx of DM. Recently started Ozempic 12/2022. Denies abd pain, weight loss. MRI 2020 IMPRESSION: STRICTURE WITH IMAGING FINDINGS OF ACTIVE INFLAMMATION INVOLVING THE NEOTERMINAL ILEUM. PENETRATING DISEASE: PRESENT - PERSISTENT ENTEROENTERIC FISTULA AND ENLARGING ABSCESS DEEP TO THE RIGHT ABDOMINAL WALL MUSCULATURE RELATIVE TO 02/26/1918. COMMUNICATION: Communicated with Dr. Sanchez on 01/01/2021 3:24 PM via verbal communication. OV 10/2021 Annabella Chapa is a 40 year old male seen for Crohn's disease. PMHx of anemia, B12 deficiency, HTN, iron deficiency anemia, obesity Patient tells me that he is feeling very well since having his abscess drained. Tells me that he is moving his bowels much more regular. Going a few times in the morning. No abdominal pain, rectal bleeding. No nausea or vomiting. Appetite is good. Tolerating his Entyvio well. CURRENT MEDICATIONS Current Outpatient Medications Medication Sig blood sugar diagnostic (BLOOD GLUCOSE TEST) test strip Test blood sugar(s) 1 times daily. Dx: Type 2 DM - Controlled E11.9 Insulin: No Lancets lancets Test blood sugar(s) 1 times daily. Dx: Type 2 DM - Controlled E11.9 Insulin: No semaglutide (OZEMPIC) 0.25 mg or 0.5 mg (2 mg/3 mL) pen Inject 0.25 mg subcutaneously one time a week. dilTIAZem CR (TIADYLT ER) 360 mg 24 hr capsule Take 1 capsule by mouth once daily. carvedilol (COREG) 25 mg tablet Take 1 tablet by mouth twice daily. spironolactone (ALDACTONE) 25 mg tablet Take 1 tablet by mouth once daily. cyanocobalamin 1,000 mcg/mL Inject 1 mL intramuscularly once every month. ergocalciferol 50,000 unit capsule (VITAMIN D2, DRISDOL) Take 1 capsule by mouth one time a week. Wednesday budesonide, enteric coated (ENTOCORT EC) 3 mg 24 hr capsule Take 3 capsules by mouth once daily. losartan (COZAAR) 100 mg tablet Take 1 tablet by mouth once daily. vedolizumab (ENTYVIO) 300 mg injection 300mg Intravenous every 8 weeks. omeprazole (PRILOSEC) 40 mg capsule Take 1 capsule by mouth once daily as needed. docusate sodium (COLACE ORAL) Take by mouth once daily. No current facility-administered medications for this visit. ALLERGIES ALLERGIES Allergen Reactions Ciprofloxacin Intolerance Hallucination SOCIAL HISTORY Social History Tobacco Use Smoking status: Former Years: 2 Types: Cigarettes Smokeless tobacco: Never Tobacco comments: Temporary smoker during college Vaping Use Vaping Use: Never used Substance Use Topics Alcohol use: Yes Comment: occasional Drug use: Never PAST MEDICAL HISTORY PAST MEDICAL HISTORY Diagnosis Date Anemia B12 deficiency 06/30/2018 Calculus of kidney 11/23/2017 left ureterolithiasis Crohn's disease of small intestine with complication ([facility]) 03/02/2017 DDD (degenerative disc disease), cervical 02/04/2018 on MRI DDD (degenerative disc disease), lumbar 02/04/2018 on MRI H/O right hemicolectomy 07/2000 Hemorrhoids HTN (hypertension) Iron deficiency anemia due to chronic blood loss 10/08/2018 Obesity, Class II, BMI 35-39.9 06/30/2018 Proximal limb muscle weakness 02/04/2018 neg. myositis, vasculitis, Lyme, WNV, GBS work up. Tachycardia 02/21/2018 Type 2 diabetes mellitus without complication, without long-term current use of insulin (HCC) 12/15/2022 Vitamin D deficiency 06/30/2018 PAST SURGICAL HISTORY PAST SURGICAL HISTORY Procedure Laterality Date COLECTOMY PARTIAL W ANASTOM Right 07/2000 Right hemicolectomy [facility] COLONOSCOPY 05/11/2016 Grade 1 internal hemorrhoids, severe inflammation at surgical site COLONOSCOPY 06/23/2005 Crohn's activity at ileocolonic anastamosis COLONOSCOPY 09/17/2006 Persistent surgical anastomotic stricture.Significant inflammation and ulceration on ileal side of anastomosis COLONOSCOPY 05/25/2018 Stenosis of ileocolonic anastomosis, Crohn's disease, hemorrhoids, markedly ulcerated colonic mucosa COLONOSCOPY 02/03/2019 chronic active colitis EGD 02/03/2019 cervical inlet patch, minimal active inflammation PAST SURGICAL HISTORY OF 1998 left ankle broken, screws FAMILY HISTORY FAMILY HISTORY Problem Relation Age of Onset Colon Cancer Paternal Uncle 55 Breast Cancer Maternal Aunt Cancer Maternal Grandfather renal cancer No Known Problems Mother Coronary Artery Disease Father 72 CABG Hypertension Father No Known Problems Brother No Known Problems Maternal Grandmother No Known Problems Paternal Grandmother Alzheimer's Disease Paternal Grandfather REVIEW OF SYSTEMS Review of Systems All other systems reviewed and are negative. PHYSICAL EXAM BP 118/74 Pulse 94 Ht 172.7 cm (5' 8) Wt 117 kg (258 lb) BMI 39.23 kg/m Physical Exam Constitutional: General: He is not in acute distress. Appearance: Normal appearance. He is normal weight. He is not ill-appearing, toxic-appearing or diaphoretic. HENT: Head: Normocephalic and atraumatic. Nose: Nose normal. Eyes: General: No scleral icterus. Right eye: No discharge. Left eye: No discharge. Extraocular Movements: Extraocular movements intact. Conjunctiva/sclera: Conjunctivae normal. Pupils: Pupils are equal, round, and reactive to light. Cardiovascular: Rate and Rhythm: Normal rate and regular rhythm. Pulses: Normal pulses. Heart sounds: Normal heart sounds. No murmur heard. No friction rub. No gallop. Pulmonary: Effort: No respiratory distress. Breath sounds: Normal breath sounds. No stridor. No wheezing, rhonchi or rales. Chest: Chest wall: No tenderness. Abdominal: General: Abdomen is flat. Bowel sounds are normal. There is no distension. Palpations: Abdomen is soft. There is no mass. Tenderness: There is no abdominal tenderness. There is no right CVA tenderness, left CVA tenderness, guarding or rebound. Hernia: No hernia is present. Musculoskeletal: General: Normal range of motion. Cervical back: Normal range of motion and neck supple. Skin: General: Skin is warm and dry. Neurological: General: No focal deficit present. Mental Status: He is alert and oriented to person, place, and time. Psychiatric: Mood and Affect: Mood normal. Behavior: Behavior normal. Assessment/Plan (K50.818) Crohn's disease of both small and large intestine with other complication (HCC) (primary encounter diagnosis) (Z11.59) Special screening examination for viral disease 1. Crohn's disease of both small and large intestine with other complication (HCC) - VITAMIN D 25 HYDROXY; Future - CBC + DIFF; Future - CT ENTEROGRAPHY W IVCON; Future - iv contrast (will be provided with radiology test); CT Enterography W Inject, intravenously, once for 1 dose.No IV access, [...] in the CT contrast administration guidelines link. Dispense: 1 Each; Refill: 0 - enteric contrast (will be provided with radiology test); For CT ENTEROGRAPHY W IVCON order Administer, As Directed One Time Only, via Oral, Rectal, both Oral and Rectal, Enteric Tube, Stoma or Indwelling Catheter, Enteric Contrast as designated per enteric contrast guidelines. Dispense: 1 Each; Refill: 0 - CREATININE BLD; Future - On Entocort 9 mg chronically, Entyvio q 8 for the past 3 years, clinically doing well - Advised obtaining updated CTE to assess for penetrating disease. H/O small bowel stricturing, abscess. Will consider slow tapering of Entocort once imaging is obtained - Due for repeat colon will wait until CTE results are in - Obtaining yearly eye/skin exams 2. Special screening examination for viral disease - Hep B, TB up to date I spent a total of 15 minutes on the date of the service which included preparing to see the patient, [id number] patient care, completing clinical documentation, obtaining and/or reviewing separately obtained history, performing a medically appropriate examination, counseling and educating the patient/family/caregiver, ordering medications, tests, or procedures, communicating with other HCPs (not separately reported), independently interpreting results (not separately reported), communicating results to the patient/family/caregiver, and care coordination (not separately reported). Roxanne Montaño PA-C UPDATED HISTORY AND PHYSICAL EXAMINATION SERVICE DATE: 07/19/2023 SERVICE TIME: 8:30 AM PHYSICAL EXAM MUST BE COMPLETED ON ADMISSION The History and Physical (completed in the past 30 days) has been reviewed and the patient has been examined. The contents accurately reflect the patient's condition with the following additions or revisions since the H&P was completed. Examination indicates no changes. This H&P can be found in the attached. SIGNATURE: Iban Presley III, MD PATIENT NAME: Annabella Chapa DATE: July 19, 2023 TIME: 8:30 AM documented in this encounter [facility] 07-13-2023 Miscellaneous Notes Patient has been identified by name and date of : Yes, Provider Edwin Kumar, Date July 13, 2023 Time 11:10 AM Patient phones for refill(s): Requested Prescriptions Pending Prescriptions Disp Refills spironolactone (ALDACTONE) 25 mg tablet 30 tablet 2 Sig: Take 1 tablet by mouth once daily. Date of last office visit in primary care: 03/31/2023 Date of next office visit in primary care: 09/29/2023 Please advise. Thank you. Juli Trivedi Ma. documented in this encounter [facility] 04-19-2023 Miscellaneous Notes Patient phones requesting refills as follows: Requested Prescriptions Pending Prescriptions Disp Refills dilTIAZem CR (TIADYLT ER) 360 mg 24 hr capsule 90 capsule 0 Sig: Take 1 capsule by mouth once daily. carvedilol (COREG) 25 mg tablet 180 tablet 0 Sig: Take 1 tablet by mouth two times a day. Please review and advise. Ebenezer Marin documented in this encounter [facility] 04-12-2023 Miscellaneous Notes MAHNAZ-03/31/23 Labs-03/25/23 NOV-09/28/22 Megan Graves LPN documented in this encounter [facility] 04-12-2023 Miscellaneous Notes Patient has been identified by name and date of : Yes Requested Prescriptions Pending Prescriptions Disp Refills losartan (COZAAR) 100 mg tablet 90 tablet 2 Sig: Take 1 tablet by mouth once daily. RX INSTRUCTIONS: Patient aware RX will be sent to pharmacy. No need to notify patient. Patient last office visit: 03/31/23 Patient next office visit: 09/29/23 Marti Tay MA documented in this encounter [facility] 03-31-2023 Instructions Farida Sloan APRN.QUANG - 03/31/2023 1:56 PM EDT Continue the same medications. Recheck lab in 3 months. Recheck in 6 months. documented in this encounter [facility] 03-31-2023 History of Present illness Narrative This is a 42 year old male who presents today with: Patient presents with: Follow Up HISTORY OF PRESENT ILLNESS: Annabella Chapa is a 42 year old male. Patient presents with: Follow Up Pt presents today to follow-up. No problems/concerns. Just got glucometer supplies. Has been on the ozempic for at least 2 months. Tolerating well. A1C didn't go down as much as he would have liked. HTN: Patient is compliant with meds Yes Monitors bp at home: Yes. Had infusions, etc -- and has been good. Denies side effects: No. Chest pain: No. Dyspnea: No. Edema: No. Palpitations: No. Syncope: No. Headache: No. Dizziness: No. PAST MEDICAL HISTORY: PAST MEDICAL HISTORY Diagnosis Date Anemia B12 deficiency 06/30/2018 Calculus of kidney 11/23/2017 left ureterolithiasis Crohn's disease of small intestine with complication (HCC) 03/02/2017 DDD (degenerative disc disease), cervical 02/04/2018 on MRI DDD (degenerative disc disease), lumbar 02/04/2018 on MRI H/O right hemicolectomy 07/2000 Hemorrhoids HTN (hypertension) Iron deficiency anemia due to chronic blood loss 10/08/2018 Obesity, Class II, BMI 35-39.9 06/30/2018 Proximal limb muscle weakness 02/04/2018 neg. myositis, vasculitis, Lyme, WNV, GBS work up. Tachycardia 02/21/2018 Type 2 diabetes mellitus without complication, without long-term current use of insulin (HCC) 12/15/2022 Vitamin D deficiency 06/30/2018 PAST SURGICAL HISTORY Procedure Laterality Date COLECTOMY PARTIAL W ANASTOM Right 07/2000 Right hemicolectomy [facility] COLONOSCOPY 05/11/2016 Grade 1 internal hemorrhoids, severe inflammation at surgical site COLONOSCOPY 06/23/2005 Crohn's activity at ileocolonic anastamosis COLONOSCOPY 09/17/2006 Persistent surgical anastomotic stricture.Significant inflammation and ulceration on ileal side of anastomosis COLONOSCOPY 05/25/2018 Stenosis of ileocolonic anastomosis, Crohn's disease, hemorrhoids, markedly ulcerated colonic mucosa COLONOSCOPY 02/03/2019 chronic active colitis EGD 02/03/2019 cervical inlet patch, minimal active inflammation PAST SURGICAL HISTORY OF 1998 left ankle broken, screws ALLERGIES Ciprofloxacin MEDICATIONS Current Outpatient Medications Medication Sig blood sugar diagnostic (BLOOD GLUCOSE TEST) test strip Test blood sugar(s) 1 times daily. Dx: Type 2 DM - Controlled E11.9 Insulin: No Lancets lancets Test blood sugar(s) 1 times daily. Dx: Type 2 DM - Controlled E11.9 Insulin: No semaglutide (OZEMPIC) 0.25 mg or 0.5 mg (2 mg/3 mL) pen Inject 0.25 mg subcutaneously one time a week. dilTIAZem CR (TIADYLT ER) 360 mg 24 hr capsule Take 1 capsule by mouth once daily. carvedilol (COREG) 25 mg tablet Take 1 tablet by mouth twice daily. spironolactone (ALDACTONE) 25 mg tablet Take 1 tablet by mouth once daily. cyanocobalamin 1,000 mcg/mL Inject 1 mL intramuscularly once every month. ergocalciferol 50,000 unit capsule (VITAMIN D2, DRISDOL) Take 1 capsule by mouth one time a week. Wednesday budesonide, enteric coated (ENTOCORT EC) 3 mg 24 hr capsule Take 3 capsules by mouth once daily. losartan (COZAAR) 100 mg tablet Take 1 tablet by mouth once daily. vedolizumab (ENTYVIO) 300 mg injection 300mg Intravenous every 8 weeks. omeprazole (PRILOSEC) 40 mg capsule Take 1 capsule by mouth once daily as needed. docusate sodium (COLACE ORAL) Take by mouth once daily. No current facility-administered medications for this visit. FAMILY HISTORY Problem Relation Age of Onset Colon Cancer Paternal Uncle 55 Breast Cancer Maternal Aunt Cancer Maternal Grandfather renal cancer No Known Problems Mother Coronary Artery Disease Father 72 CABG Hypertension Father No Known Problems Brother No Known Problems Maternal Grandmother No Known Problems Paternal Grandmother Alzheimer's Disease Paternal Grandfather Social History Tobacco Use Smoking status: Former Years: 2 Types: Cigarettes Smokeless tobacco: Never Tobacco comments: Temporary smoker during college Vaping Use Vaping Use: Never used Substance Use Topics Alcohol use: Yes Comment: occasional Drug use: Never EXAM: BP 126/82 Pulse 100 Resp 16 SpO2 95% PHYSICAL EXAM: General Appearance: Well appearing, alert, in no acute distress, well-hydrated, well nourished.. Skin: Skin color, texture, turgor normal, no suspicious rashes or lesions. Head: Normocephalic, no masses, lesions, tenderness or abnormalities. Eyes: Anicteric sclera. Pupils are equally round and reactive to light. Extraocular movements are intact. . Lungs: Lungs clear to auscultation. No wheezing, rhonchi, rales.. Heart: RRR without murmur, gallop, or rubs. No ectopy. Neurologic: Gait normal. ASSESSMENT/PLAN: 1. Type 2 diabetes mellitus without complication, without long-term current use of insulin (HCC) - ICD9: 250.00, ICD10: E11.9 (primary diagnosis) - Controlled - Increase semaglutide (Ozempic) Recheck A1C in 3 months. 2. High urine creatine - ICD9: 791.9, ICD10: R82.998 - URINALYSIS, WITH MICROSCOPIC - URINE CULTURE Recheck kidney function with next lab draw. 3. Hypertension, essential - ICD9: 401.9, ICD10: I10 - Controlled - Continue current medications - Recommend home blood pressure monitoring, to bring results to next visit - Encouraged sodium restriction, DASH or Mediterranean diet - Recommend regular aerobic exercise Discussed treatment plan and patient voices understanding. Patient's questions answered appropriately. Medications and potential side effects were discussed and patient voices understanding. Return to the office as scheduled or as needed for worsening/no improvement. Farida Sloan APRN.DOORS PREFITTER documented in this encounter [facility] 02-10-2023 Miscellaneous Notes Prior Authorization History semaglutide (OZEMPIC) 0.25 mg or 0.5 mg (2 mg/3 mL) pen Approval Details Authorized from February 10, 2023 to February 10, 2026 Information received electronically from payer History View all authorizations for this medication Approved 02/10/2023 9:36 AM Sending pharmacy: [id number] [place] [address] - [address] [facility]. - [phone] [facility] [phone] [id number] Appeal supported: No Note from payer: Your PA request has been approved. Additional information will be provided in the approval communication. (Message [id number]) Electronic PA completed for ozempic. My chart message to pt. documented in this encounter [facility] 01-20-2023 Instructions Farida Sloan APRN.CNP - 01/20/2023 10:54 AM EDT Continue the metformin until we see if we can get ozempic covered. Labs in February. Recheck after February labs. documented in this encounter [facility] 01-20-2023 History of Present illness Narrative This is a 42 year old male who presents today with: Patient presents with: Recheck: 6 week follow up HISTORY OF PRESENT ILLNESS: Annabella Chapa is a 42 year old male. Patient presents with: Recheck: 6 week follow up Pt presents today for recheck. Newly dx with diabetes. Was going to try ozempic, however, not covered without trial of another medication. Started metformin. Not tolerating well. Getting woken up with diarrhea -- up three times last night. Has hx of crohns - these stools are above and beyond crohn's. HTN: Patient is compliant with meds Yes Monitors bp at home: Yes. Denies side effects: No. Chest pain: No. Dyspnea: No. Edema: improving. Palpitations: No. Syncope: No. Headache: No. Dizziness: No. PAST MEDICAL HISTORY: PAST MEDICAL HISTORY Diagnosis Date Anemia B12 deficiency 06/30/2018 Calculus of kidney 11/23/2017 left ureterolithiasis Crohn's disease of small intestine with complication ([facility]) 03/02/2017 DDD (degenerative disc disease), cervical 02/04/2018 on MRI DDD (degenerative disc disease), lumbar 02/04/2018 on MRI H/O right hemicolectomy 07/2000 Hemorrhoids HTN (hypertension) Iron deficiency anemia due to chronic blood loss 10/08/2018 Obesity, Class II, BMI 35-39.9 06/30/2018 Proximal limb muscle weakness 02/04/2018 neg. myositis, vasculitis, Lyme, WNV, GBS work up. Tachycardia 02/21/2018 Type 2 diabetes mellitus without complication, without long-term current use of insulin ([facility]) 12/15/2022 Vitamin D deficiency 06/30/2018 PAST SURGICAL HISTORY Procedure Laterality Date COLECTOMY PARTIAL W ANASTOM Right 07/2000 Right hemicolectomy [facility] COLONOSCOPY 05/11/2016 Grade 1 internal hemorrhoids, severe inflammation at surgical site COLONOSCOPY 06/23/2005 Crohn's activity at ileocolonic anastamosis COLONOSCOPY 09/17/2006 Persistent surgical anastomotic stricture.Significant inflammation and ulceration on ileal side of anastomosis COLONOSCOPY 05/25/2018 Stenosis of ileocolonic anastomosis, Crohn's disease, hemorrhoids, markedly ulcerated colonic mucosa COLONOSCOPY 02/03/2019 chronic active colitis EGD 02/03/2019 cervical inlet patch, minimal active inflammation PAST SURGICAL HISTORY OF 1998 left ankle broken, screws ALLERGIES Ciprofloxacin MEDICATIONS Current Outpatient Medications Medication Sig dilTIAZem CR (TIADYLT ER) 360 mg 24 hr capsule Take 1 capsule by mouth once daily. carvedilol (COREG) 25 mg tablet Take 1 tablet by mouth twice daily. spironolactone (ALDACTONE) 25 mg tablet Take 1 tablet by mouth once daily. metFORMIN ER (GLUCOPHAGE XR) 500 mg 24 hr tablet Take 1 tablet by mouth daily with breakfast. cyanocobalamin 1,000 mcg/mL Inject 1 mL intramuscularly once every month. ergocalciferol 50,000 unit capsule (VITAMIN D2, DRISDOL) Take 1 capsule by mouth one time a week. Wednesday budesonide, enteric coated (ENTOCORT EC) 3 mg 24 hr capsule Take 3 capsules by mouth once daily. losartan (COZAAR) 100 mg tablet Take 1 tablet by mouth once daily. vedolizumab (ENTYVIO) 300 mg injection 300mg Intravenous every 8 weeks. omeprazole (PRILOSEC) 40 mg capsule Take 1 capsule by mouth once daily as needed. docusate sodium (COLACE ORAL) Take by mouth once daily. semaglutide (OZEMPIC) 0.25 mg or 0.5 mg (2 mg/3 mL) pen Inject 0.25 mg subcutaneously one time a week. No current facility-administered medications for this visit. FAMILY HISTORY Problem Relation Age of Onset Colon Cancer Paternal Uncle 55 Breast Cancer Maternal Aunt Cancer Maternal Grandfather renal cancer No Known Problems Mother Coronary Artery Disease Father 72 CABG Hypertension Father No Known Problems Brother No Known Problems Maternal Grandmother No Known Problems Paternal Grandmother Alzheimer's Disease Paternal Grandfather Social History Tobacco Use Smoking status: Former Years: 2 Types: Cigarettes Smokeless tobacco: Never Tobacco comments: Temporary smoker during college Vaping Use Vaping Use: Never used Substance Use Topics Alcohol use: Yes Comment: occasional Drug use: Never EXAM: BP 128/92 Pulse 93 Resp 16 SpO2 96% PHYSICAL EXAM: General Appearance: Well appearing, alert, in no acute distress, well-hydrated, well nourished.. Skin: Skin color, texture, turgor normal, no suspicious rashes or lesions. Head: Normocephalic, no masses, lesions, tenderness or abnormalities. Eyes: Anicteric sclera. Extraocular movements are intact. . Lungs: Lungs clear to auscultation. No wheezing, rhonchi, rales.. Heart: RRR without murmur, gallop, or rubs. No ectopy. Extremities: No deformities, edema, skin discoloration, clubbing or cyanosis. Good capillary refill. Neurologic: Gait normal. Feet:Shoes and socks removed, No deformities, ulcers, calluses, normal distal pulses, and sensitive to 10 gm monofilament ASSESSMENT/PLAN: 1. Type 2 diabetes mellitus without complication, without long-term current use of insulin ([facility]) - ICD9: 250.00, ICD10: E11.9 (primary diagnosis) - Controlled - New diagnosis Not tolerating metformin well. Only taking once daily. He already has inflammatory bowel disease and metformin worsening diarrhea and interfering with sleep. Will again try to authorize ozempic or similar. Recheck labs and office visit in February. Discussed patho of diabetes. Discussed carb counting and written info provided. Discussed importance of yearly eye exams. Foot exam completed today. - METFORMIN ER 500 MG TABLET,EXTENDED RELEASE 24 HR - BLOOD-GLUCOSE METER KIT - BLOOD GLUCOSE TEST STRIPS - LANCETS - SEMAGLUTIDE 0.25 MG OR 0.5 MG (2 MG/3 ML) SUBCUTANEOUS PEN INJECTOR - HGB A1C - ALBUMIN/CREAT RATIO RND UR 2. Hypertension, essential - ICD9: 401.9, ICD10: I10 - Improving control - Continue current medications - Recommend home blood pressure monitoring, to bring results to next visit - Encouraged sodium restriction, DASH or Mediterranean diet - Recommend regular aerobic exercise Discussed treatment plan and patient voices understanding. Patient's questions answered appropriately. Medications and potential side effects were discussed and patient voices understanding. Return to the office as scheduled or as needed for worsening/no improvement. Farida Sloan APRN.DOORS PREFITTER documented in this encounter [facility] 01-13-2023 Miscellaneous Notes Patient phones requesting refills as follows: Requested Prescriptions Pending Prescriptions Disp Refills spironolactone (ALDACTONE) 25 mg tablet 30 tablet 2 Sig: Take 1 tablet by mouth once daily. MAHNAZ-12/09/22 Labs-12/14/22 NOV-01/20/23 Please review and advise. Megan Graves LPN documented in this encounter [facility] 12-16-2022 Miscellaneous Notes Pt returned call and given provider's message below with verbalized understanding. Pt agreeable. Reports no questions at this time. Left message to return call to office. Ebenezer Marin LPN I went ahead and sent this into the pharmacy. Please let us know if he has questions about its use -- we can certainly bring him back in and go over the medication and injection. A common side effect with this medication is that since it slows how fast food leaves the stomach, it can cause some nausea. Because it can cause people to feel mccain for a longer period of time, many patients will have some weight loss associated with the medication. It is important to try not to overeat with the medication, as this may worsen those symptom. He has a follow-up appt scheduled for next month. Can we please change this to a 40 minute appt d/t new diagnosis of diabetes. Farida Sloan APRN.QUANG Patient returned call and went over results, notes from Farida Sloan OIL PAINT SHADER with understanding. Patient is willing to do the Ozempic, he uses [facility] for his pharmacy and his insurance does 90 day rx. Left message to return call to office. Ebenezer Marin LPN Can please let patient know that I received his lab results. It does show that he is diabetic. I would consider starting medication to prevent this from worsening. If covered, I would consider starting a medication like ozempic, which is a weekly injection. Please let me know if he would like to proceed with this. Farida Sloan APRN.QUANG documented in this encounter [facility] 12-14-2022 Miscellaneous Notes Please let patient know that his TB was cancelled as it was improperly collected. Will need to go back to lab to have it redrawn. Order placed. ----- Message from Sanford Cole sent at 12/12/2022 8:21 PM EDT ----- Regarding: Test Canceled Please place a new order for QuantiFERON TB, if clinically indicated. The specimen was inadvertently collected incorrectly. Thank you. If any questions, please contact Laboratory Client Services. DO NOT REPLY TO THIS MESSAGE. documented in this encounter [facility] 12-11-2022 Miscellaneous Notes Patient phones requesting refills as follows: Appt 02/24/23 Requested Prescriptions Pending Prescriptions Disp Refills cyanocobalamin 1,000 mcg/mL 3 mL 3 Sig: Inject 1 mL intramuscularly once every month. ergocalciferol 50,000 unit capsule (VITAMIN D2, DRISDOL) 90 capsule 3 Sig: Take 1 capsule by mouth one time a week. Wednesday budesonide, enteric coated (ENTOCORT EC) 3 mg 24 hr capsule 270 capsule 1 Sig: Take 3 capsules by mouth once daily. Please review and advise. Abe Holley MA documented in this encounter [facility] 12-09-2022 Miscellaneous Notes Hep B/TB orders placed. documented in this encounter [facility] 12-08-2022 History of Present illness Narrative Message sent to patient to contact office to schedule appt for bp follow up Marti Tay MA documented in this encounter [facility] 11-25-2022 Miscellaneous Notes Entyvio Renewal. The patient was last seen over a year 11/21/2021. Requesting updated clinical notes of the patient's clinical response to treatment to send to payor for a new approval. Please advise. The Pharmacy Team Thank you documented in this encounter [facility] 10-30-2022 Miscellaneous Notes Patient returned call and will be in at 230 on 11/02. Future appts for patient have been adjusted. Entyvio now requires 40 minutes to mix. Due to the expense of the drug and the fact that they are prescribed by outside physicians, pharmacy will not mix prior to pt arrival. Pharmacy requests patients not be scheduled in the 3:30 time slot because of this. Please schedule preferably NO LATER than 2:30 to allow for this time. This patient will need to be rescheduled for Wednesday's treatment and all upcoming treatments as well. (Lori Kincaid left message with pt requesting 2:30 appt time). documented in this encounter [facility] 10-07-2022 Miscellaneous Notes Patient returned call and went over notes below from Nancy Stover OIL PAINT SHADER with understanding. Scheduled appt for 2022 at 4 pm with OIL PAINT SHADER. Left a message for pt to call the office and ask to speak to a nurse. Brenda Ramirez LPN He is overdue for office visit, no additional refills. The following approved medication requests have been transmitted electronically. Requested Prescriptions Signed Prescriptions Disp Refills dilTIAZem CR (TIADYLT ER) 360 mg 24 hr capsule 90 capsule 0 Sig: Take 1 capsule by mouth once daily. Authorizing Provider: CARI GONZALEZ Ordering User: DENEEN STOVER carvedilol (COREG) 25 mg tablet 180 tablet 0 Sig: Take 1 tablet by mouth twice daily. Authorizing Provider: CARI GONZALEZ Ordering User: DENEEN STOVER APRN.CNP Patient has been identified by name and date of : Yes Requested Prescriptions Pending Prescriptions Disp Refills dilTIAZem CR (TIADYLT ER) 360 mg 24 hr capsule 90 capsule 1 Sig: Take 1 capsule by mouth once daily. carvedilol (COREG) 25 mg tablet 180 tablet 1 Sig: Take 1 tablet by mouth twice daily. RX INSTRUCTIONS: Patient aware RX will be sent to pharmacy. No need to notify patient. Patient last office visit: 10/06/21 Patient next office visit: none scheduled Marti Tay MA documented in this encounter [facility] 07-06-2022 Miscellaneous Notes Last office visit: 10/06/21 F/u scheduled: none Juli Trivedi Ma documented in this encounter [facility] 04-24-2022 Miscellaneous Notes Patient phones requesting refills as follows: Requested Prescriptions Pending Prescriptions Disp Refills budesonide, enteric coated (ENTOCORT EC) 3 mg 24 hr capsule 270 capsule 1 Sig: Take 3 capsules by mouth once daily. Please review and advise. Abe Holley MA documented in this encounter [facility] 11-21-2021 History of Present illness Narrative This is a virtual visit using [employer] video visit. It required patient-provider interaction for the medical decision making as documented below. Annabella Chapa is a 40 year old male seen for Crohn's disease. PMHx of anemia, B12 deficiency, HTN, iron deficiency anemia, obesity Patient tells me that he is feeling very well since having his abscess drained. Tells me that he is moving his bowels much more regular. Going a few times in the morning. No abdominal pain, rectal bleeding. No nausea or vomiting. Appetite is good. Tolerating his Entyvio well. Component Latest Ref Rng & Units 11/05/2021 WBC 3.70 - 11.00 k/uL 13.29 (H) RBC 4.20 - 6.00 m/uL 5.01 Hemoglobin 13.0 - 17.0 g/dL 12.8 (L) Hematocrit 39.0 - 51.0 % 40.2 MCV 80.0 - 100.0 fL 80.2 MCH 26.0 - 34.0 pg 25.5 (L) MCHC 30.5 - 36.0 g/dL 31.8 RDW-CV 11.5 - 15.0 % 17.5 (H) Platelet Count 150 - 400 k/uL 181 MPV 9.0 - 12.7 fL 9.7 Neut% % 86.6 Abs Neut (ANC) 1.45 - 7.50 k/uL 11.50 (H) Lymph% % 6.3 Abs Lymph 1.00 - 4.00 k/uL 0.84 (L) Oceana% % 5.5 Abs Oceana <0.87 k/uL 0.73 Eosin% % 0.6 Abs Eosin <0.46 k/uL 0.08 Baso% % 0.2 Abs Baso <0.11 k/uL 0.03 Immature Gran % % 0.8 IMMATURE GRANS (ABS) <0.10 k/uL 0.11 (H) NRBC /100 WBC 0.0 Absolute nRBC <0.01 k/uL <0.01 DTYPE Auto Protein, Total 6.3 - 8.0 g/dL 6.5 Albumin 3.9 - 4.9 g/dL 4.0 Calcium 8.5 - 10.2 mg/dL 9.2 Bilirubin, Total 0.2 - 1.3 mg/dL 0.5 Alkaline Phosphatase 38 - 113 U/L 86 AST 14 - 40 U/L 15 ALT 10 - 54 U/L 37 Glucose 74 - 99 mg/dL 121 (H) BUN 9 - 24 mg/dL 20 Creatinine 0.73 - 1.22 mg/dL 1.15 Sodium 136 - 144 mmol/L 141 Potassium 3.7 - 5.1 mmol/L 3.7 Chloride 97 - 105 mmol/L 107 (H) CO2 22 - 30 mmol/L 26 Anion Gap 9 - 18 mmol/L 8 (L) eGFR >=60 mL/min/1.73m 82 TB Nil <=8.00 IU/mL <0.00 TB Interpretation Infection with M. tuberculosis complex is unlikely. If latent tuberculosis infection is highly suspected, a negative result does not rule out the infection. Specimens from immunocompromised patients and those <5 years of age may show false negative results. In case of a contact investigation, please repeat 8-12 weeks after a known exposure. TB1 Ag minus Nil <0.35 IU/mL <0.00 TB2 Ag minus Nil <0.35 IU/mL <0.00 TB Result Negative Mitogen minus Nil >=0.50 IU/mL 2.90 CRP <0.9 mg/dL 1.4 (H) Hep B Surface Ag Negative Negative HISTORY REVIEWED (electronic chart updated): PAST MEDICAL HISTORY Diagnosis Date Anemia B12 deficiency 06/30/2018 Calculus of kidney 11/23/2017 left ureterolithiasis Crohn's disease of small intestine with complication (HCC) 03/02/2017 DDD (degenerative disc disease), cervical 02/04/2018 on MRI DDD (degenerative disc disease), lumbar 02/04/2018 on MRI H/O right hemicolectomy 07/2000 Hemorrhoids HTN (hypertension) Iron deficiency anemia due to chronic blood loss 10/08/2018 Obesity, Class II, BMI 35-39.9 06/30/2018 Proximal limb muscle weakness 02/04/2018 neg. myositis, vasculitis, Lyme, WNV, GBS work up. Tachycardia 02/21/2018 Vitamin D deficiency 06/30/2018 PAST SURGICAL HISTORY Procedure Laterality Date COLECTOMY PARTIAL W ANASTOM Right 07/2000 Right hemicolectomy [facility] COLONOSCOPY 05/11/2016 Grade 1 internal hemorrhoids, severe inflammation at surgical site COLONOSCOPY 06/23/2005 Crohn's activity at ileocolonic anastamosis COLONOSCOPY 09/17/2006 Persistent surgical anastomotic stricture.Significant inflammation and ulceration on ileal side of anastomosis COLONOSCOPY 05/25/2018 Stenosis of ileocolonic anastomosis, Crohn's disease, hemorrhoids, markedly ulcerated colonic mucosa COLONOSCOPY 02/03/2019 chronic active colitis EGD 02/03/2019 cervical inlet patch, minimal active inflammation PAST SURGICAL HISTORY OF 1998 left ankle broken, screws FAMILY HISTORY Problem Relation Age of Onset Colon Cancer Paternal Uncle 55 Breast Cancer Maternal Aunt Cancer Maternal Grandfather renal cancer No Known Problems Mother Coronary Artery Disease Father 72 CABG Hypertension Father No Known Problems Brother No Known Problems Maternal Grandmother No Known Problems Paternal Grandmother Alzheimer's Disease Paternal Grandfather Social History Tobacco Use Smoking status: Former Smoker Years: 2.00 Smokeless tobacco: Never Used Tobacco comment: Temporary smoker during college Vaping Use Vaping Use: Never used Substance Use Topics Alcohol use: Yes Comment: occasional Drug use: Never Current Outpatient Medications Medication Sig carvedilol (COREG) 25 mg tablet Take 1 tablet by mouth twice daily. budesonide, enteric coated (ENTOCORT EC) 3 mg 24 hr capsule Take 3 capsules by mouth once daily. TIADYLT ER 360 mg 24 hr capsule TAKE 1 CAPSULE BY MOUTH ONCE DAILY losartan (COZAAR) 100 mg tablet Take 1 tablet by mouth once daily. ergocalciferol 50,000 unit capsule (VITAMIN D2, DRISDOL) Take 1 capsule by mouth one time a week. Wednesday vedolizumab (ENTYVIO) 300 mg injection 300mg Intravenous every 8 weeks. cyanocobalamin 1,000 mcg/mL INJECT 1 ML INTRAMUSCULARLY ONCE EVERY MONTH. (Patient taking differently: Inject 1,000 mcg intramuscularly once every month. First of the month ) omeprazole (PRILOSEC) 40 mg capsule Take 1 capsule by mouth once daily as needed. docusate sodium (COLACE ORAL) Take by mouth once daily. Current Facility-Administered Medications Medication Dose Route Frequency perflutren lipid microspheres 1.3 mL in NaCl (PF) 0.9% 10 mL injection (DEFINITY) INTRAVENOUS DIRECTED PRN sodium chloride 0.9 % (flush) 10 mL (BD POSIFLUSH) 10 mL INTRAVENOUS DIRECTED PRN ALLERGIES Allergen Reactions Ciprofloxacin Intolerance Hallucination REVIEW OF SYSTEMS: Review of Systems Constitutional: Negative. Respiratory: Negative. Cardiovascular: Negative. Gastrointestinal: Negative for abdominal pain, blood in stool and diarrhea. Neurological: Negative. Psychiatric/Behavioral: Negative. PHYSICAL EXAMINATION: VIDEO EXAM: (if completed, performed via video enabled technology) Physical Exam Constitutional: Appearance: Normal appearance. HENT: Head: Normocephalic and atraumatic. Eyes: General: No scleral icterus. Pulmonary: Effort: Pulmonary effort is normal. Skin: Coloration: Skin is not jaundiced. Neurological: General: No focal deficit present. Mental Status: He is alert and oriented to person, place, and time. Psychiatric: Mood and Affect: Mood normal. Behavior: Behavior normal. Thought Content: Thought content normal. Judgment: Judgment normal. Assessment/Plan (K50.00) Crohn's disease of small intestine without complication (HCC) (primary encounter diagnosis) 1. Crohn's disease of small intestine without complication (HCC) -- Patient overall doing very well today since abscess drainage in December. Denies symptoms. -- Continue Entyvio, tolerating very well. UTD on lab work -- Will plan to repeat MR enterography, consider repeat Colonoscopy. - MRI ABD ENTEROG WO/W IVCON; Future - MRI PEL ENTEROG WO/W IVCON; Future - iv contrast (will be provided with radiology test); MRI Enterography Inject, intravenously, once for 1 dose. No IV access, insert saline lock prior to the beginning of sedation, infusion, injection of imaging exam. Discontinue saline lock post exam. If Pt. has a central line or IVAD, may access for administration according to line specific nursing protocol. Once exam is complete flush line and de-access according to line specific nursing protocol in the MR contrast administration guidelines link. Dispense: 1 Each; Refill: 0 - enteric contrast (will be provided with radiology test); For MRI ENTEROGRAPHY WO/W Administer, As Directed One Time Only, via Oral, Rectal, both Oral and Rectal, Enteric Tube, Stoma or Indwelling Catheter, Enteric Contrast as designated per enteric contrast guidelines Dispense: 1 Each; Refill: 0 - glucagon (GLUCAGEN) 1 mg/mL injection; Inject 1 mg intravenously one time only for 1 dose. For MRI Enterography, Inject 1 mg intravenously, as directed. Slow push at the appropriate time during MRI Scan Dispense: 1 Each; Refill: 0 Follow up in office 6 months/PRN. Recommended to please call office/go to ER if fever, chills, chest pain, SOB, diarrhea, nausea, emesis, worsening abdominal pain, dehydration occurs I spent 20 minutes in the visit, with more than 50% of the total [id number] time of the visit in counseling / coordination of care. I have confirmed and edited as necessary, the PFSH and ROS obtained by others. Geraldine Figueroa PA-C November 21, 2021 10:04 AM documented in this encounter [facility] 10-22-2021 Miscellaneous Notes Patient phones requesting refills as follows: Pending Prescriptions Disp Refills BUDESONIDE DR - ER 3 MG CAPSULE,DELAYED,EXTENDED RELEASE 270 capsule 1 Sig: Take 3 capsules by mouth once daily. HAYES: No Please review and advise. Vonda Way Ma documented in this encounter [facility] 10-17-2021 Miscellaneous Notes The following approved medication requests have been transmitted electronically. Signed Prescriptions Disp Refills TIADYLT ER 360 mg 24 hr capsule 90 capsule 1 Sig: TAKE 1 CAPSULE BY MOUTH ONCE DAILY HAYES: No Authorizing Provider: CARI BABB APRN.QUANG Patient phones requesting refills as follows: Pending Prescriptions Disp Refills TIADYLT ER 360 MG CAPSULE,EXTENDED RELEASE 90 capsule 1 Sig: TAKE 1 CAPSULE BY MOUTH ONCE DAILY HAYES: Yes MAHNAZ-10/06/21 Labs03/22/21 NOV-none med filled 09/22/21 Please review and advise. Megan Graves LPN documented in this encounter [facility] 10-06-2021 Instructions Farida Sloan APRN.QUANG - 10/06/2021 4:41 PM EDT 1. Send me blood pressures in a week. 2. Schedule with nephrology. 3. Increase the carvedilol to 25 mg twice daily. documented in this encounter [facility] 10-06-2021 History of Present illness Narrative This is a 40 year old male who presents today with: Patient presents with: Follow Up HISTORY OF PRESENT ILLNESS: Annabella Chapa is a 40 year old male. Patient presents with: Follow Up Patient presents today to follow-up on elevated blood pressure. At the last office visit, we started carvedilol 6.25 mg. He sent in blood pressure readings a week ago, and the carvedilol was increased to 12-1/2 mg twice daily. He is continuing to have elevated blood pressures at home, reports consistently 140s/150s, although his heart rate has come down into the 80s and 90s. No side effects to the medication. No chest pain or shortness of breath. No palpitations. Continues with mild swelling of his ankles. PAST MEDICAL HISTORY: PAST MEDICAL HISTORY Diagnosis Date Anemia B12 deficiency 06/30/2018 Calculus of kidney 11/23/2017 left ureterolithiasis Crohn's disease of small intestine with complication (HCC) 03/02/2017 DDD (degenerative disc disease), cervical 02/04/2018 on MRI DDD (degenerative disc disease), lumbar 02/04/2018 on MRI H/O right hemicolectomy 07/2000 Hemorrhoids HTN (hypertension) Iron deficiency anemia due to chronic blood loss 10/08/2018 Obesity, Class II, BMI 35-39.9 06/30/2018 Proximal limb muscle weakness 02/04/2018 neg. myositis, vasculitis, Lyme, WNV, GBS work up. Tachycardia 02/21/2018 Vitamin D deficiency 06/30/2018 PAST SURGICAL HISTORY Procedure Laterality Date COLECTOMY PARTIAL W ANASTOM Right 07/2000 Right hemicolectomy [facility] COLONOSCOPY 05/11/2016 Grade 1 internal hemorrhoids, severe inflammation at surgical site COLONOSCOPY 06/23/2005 Crohn's activity at ileocolonic anastamosis COLONOSCOPY 09/17/2006 Persistent surgical anastomotic stricture.Significant inflammation and ulceration on ileal side of anastomosis COLONOSCOPY 05/25/2018 Stenosis of ileocolonic anastomosis, Crohn's disease, hemorrhoids, markedly ulcerated colonic mucosa COLONOSCOPY 02/03/2019 chronic active colitis EGD 02/03/2019 cervical inlet patch, minimal active inflammation PAST SURGICAL HISTORY OF 1998 left ankle broken, screws ALLERGIES Ciprofloxacin MEDICATIONS Current Outpatient Medications Medication Sig carvedilol (COREG) 12.5 mg tablet Take 1 tablet by mouth twice daily. dilTIAZem CR (TIADYLT ER) 360 mg 24 hr capsule Take 1 capsule by mouth once daily. ergocalciferol 50,000 unit capsule (VITAMIN D2, DRISDOL) Take 1 capsule by mouth one time a week. Wednesday losartan (COZAAR) 100 mg tablet Take 1 tablet by mouth once daily. vedolizumab (ENTYVIO) 300 mg injection 300mg Intravenous every 8 weeks. budesonide, enteric coated (ENTOCORT EC) 3 mg 24 hr capsule Take 3 capsules by mouth once daily. cyanocobalamin 1,000 mcg/mL INJECT 1 ML INTRAMUSCULARLY ONCE EVERY MONTH. (Patient taking differently: Inject 1,000 mcg intramuscularly once every month. First of the month ) omeprazole (PRILOSEC) 40 mg capsule Take 1 capsule by mouth once daily as needed. docusate sodium (COLACE ORAL) Take by mouth once daily. Current Facility-Administered Medications Medication Dose Route Frequency perflutren lipid microspheres 1.3 mL in NaCl (PF) 0.9% 10 mL injection (DEFINITY) INTRAVENOUS DIRECTED PRN sodium chloride 0.9 % (flush) 10 mL (BD POSIFLUSH) 10 mL INTRAVENOUS DIRECTED PRN FAMILY HISTORY Problem Relation Age of Onset Colon Cancer Paternal Uncle 55 Breast Cancer Maternal Aunt Cancer Maternal Grandfather renal cancer No Known Problems Mother Coronary Artery Disease Father 72 CABG Hypertension Father No Known Problems Brother No Known Problems Maternal Grandmother No Known Problems Paternal Grandmother Alzheimer's Disease Paternal Grandfather Social History Tobacco Use Smoking status: Former Smoker Years: 2.00 Smokeless tobacco: Never Used Tobacco comment: Temporary smoker during college Vaping Use Vaping Use: Never used Substance Use Topics Alcohol use: Yes Comment: occasional Drug use: Never EXAM: BP 139/93 Pulse 93 Resp 18 SpO2 96% PHYSICAL EXAM: General Appearance: Well appearing, alert, in no acute distress, well-hydrated, well nourished.. Skin: Skin color, texture, turgor normal, no suspicious rashes or lesions. Head: Normocephalic, no masses, lesions, tenderness or abnormalities. Eyes: Anicteric sclera. Pupils are equally round and reactive to light. Extraocular movements are intact. . Lungs: Lungs clear to auscultation. No wheezing, rhonchi, rales.. Heart: RRR without murmur, gallop, or rubs. No ectopy. Extremities: No deformities, skin discoloration, clubbing or cyanosis. Good capillary refill. Trace - +1 ankle edema. Neurologic: Gait normal. Reflexes normal and symmetric. Sensation grossly intact.. ASSESSMENT/PLAN: 1. Hypertension, essential - ICD9: 401.9, ICD10: I10 (primary diagnosis) - suboptimal control - Increase coreg. - Recommended regular aerobic exercise. - Recommend home blood pressure monitoring, to bring results in on next visit - Goal of BP <130/80 - CONSULT TO NEPHROLOGY - CARVEDILOL 25 MG TABLET 2. Resistant hypertension - ICD9: 401.9, ICD10: I10 - CONSULT TO NEPHROLOGY - CARVEDILOL 25 MG TABLET 3. Essential hypertension - ICD9: 401.9, ICD10: I10 Refill: - LOSARTAN 100 MG TABLET Discussed treatment plan and patient voices understanding. Patient's questions answered appropriately. Medications and potential side effects were discussed and patient voices understanding. Return to the office as scheduled or as needed for worsening/no improvement. Farida Sloan APRN.QUANG This note was partially generated using [employer] voice recognition system. Note was reviewed for accuracy. There may be minor misspellings or grammar miscues with [employer] voice recognition. documented in this encounter [facility] 09-22-2021 Instructions Farida Sloan APRN.CNP - 09/22/2021 5:15 PM EDT 1. Start the carvedilol twice daily. 2. Check BP and pulse daily -- send to me in a week. 3. Recheck in 2 weeks. 4. Let me know if problems sooner if needed. documented in this encounter [facility] 09-22-2021 History of Present illness Narrative This is a 40 year old male who presents today with: Patient presents with: Recheck: 1 month follow up HISTORY OF PRESENT ILLNESS: Annabella Chapa is a 40 year old male. Patient presents with: Recheck: 1 month follow up Pt presents today for recheck of blood pressure. Patient presents today for a recheck of blood pressure. At his last visit, his metoprolol was discontinued due to him noticing more fatigue, swelling and some weight gain. His Cardizem was increased at that time. He had been on amlodipine in the past, but was changed to Cardizem and his blood pressure was not controlled and his heart rate was up. He does continue on losartan 100 mg daily. He has been trying to avoid diuretics due to his Crohn's disease. Blood pressure continues to be elevated, as well as his pulse. PAST MEDICAL HISTORY: PAST MEDICAL HISTORY Diagnosis Date Anemia B12 deficiency 06/30/2018 Calculus of kidney 11/23/2017 left ureterolithiasis Crohn's disease of small intestine with complication (HCC) 03/02/2017 DDD (degenerative disc disease), cervical 02/04/2018 on MRI DDD (degenerative disc disease), lumbar 02/04/2018 on MRI H/O right hemicolectomy 07/2000 Hemorrhoids HTN (hypertension) Iron deficiency anemia due to chronic blood loss 10/08/2018 Obesity, Class II, BMI 35-39.9 06/30/2018 Proximal limb muscle weakness 02/04/2018 neg. myositis, vasculitis, Lyme, WNV, GBS work up. Tachycardia 02/21/2018 Vitamin D deficiency 06/30/2018 PAST SURGICAL HISTORY Procedure Laterality Date COLECTOMY PARTIAL W ANASTOM Right 07/2000 Right hemicolectomy [facility] COLONOSCOPY 05/11/2016 Grade 1 internal hemorrhoids, severe inflammation at surgical site COLONOSCOPY 06/23/2005 Crohn's activity at ileocolonic anastamosis COLONOSCOPY 09/17/2006 Persistent surgical anastomotic stricture.Significant inflammation and ulceration on ileal side of anastomosis COLONOSCOPY 05/25/2018 Stenosis of ileocolonic anastomosis, Crohn's disease, hemorrhoids, markedly ulcerated colonic mucosa COLONOSCOPY 02/03/2019 chronic active colitis EGD 02/03/2019 cervical inlet patch, minimal active inflammation PAST SURGICAL HISTORY OF 1998 left ankle broken, screws ALLERGIES Ciprofloxacin MEDICATIONS Current Outpatient Medications Medication Sig ergocalciferol 50,000 unit capsule (VITAMIN D2, DRISDOL) Take 1 capsule by mouth one time a week. Wednesday dilTIAZem CR (TIADYLT ER) 360 mg 24 hr capsule Take 1 capsule by mouth once daily. losartan (COZAAR) 100 mg tablet Take 1 tablet by mouth once daily. vedolizumab (ENTYVIO) 300 mg injection 300mg Intravenous every 8 weeks. budesonide, enteric coated (ENTOCORT EC) 3 mg 24 hr capsule Take 3 capsules by mouth once daily. cyanocobalamin 1,000 mcg/mL INJECT 1 ML INTRAMUSCULARLY ONCE EVERY MONTH. (Patient taking differently: Inject 1,000 mcg intramuscularly once every month. First of the month ) omeprazole (PRILOSEC) 40 mg capsule Take 1 capsule by mouth once daily as needed. docusate sodium (COLACE ORAL) Take by mouth once daily. Current Facility-Administered Medications Medication Dose Route Frequency perflutren lipid microspheres 1.3 mL in NaCl (PF) 0.9% 10 mL injection (DEFINITY) INTRAVENOUS DIRECTED PRN sodium chloride 0.9 % (flush) 10 mL (BD POSIFLUSH) 10 mL INTRAVENOUS DIRECTED PRN FAMILY HISTORY Problem Relation Age of Onset Colon Cancer Paternal Uncle 55 Breast Cancer Maternal Aunt Cancer Maternal Grandfather renal cancer No Known Problems Mother Coronary Artery Disease Father 72 CABG Hypertension Father No Known Problems Brother No Known Problems Maternal Grandmother No Known Problems Paternal Grandmother Alzheimer's Disease Paternal Grandfather Social History Tobacco Use Smoking status: Former Smoker Years: 2.00 Smokeless tobacco: Never Used Tobacco comment: Temporary smoker during college Vaping Use Vaping Use: Never used Substance Use Topics Alcohol use: Yes Comment: occasional Drug use: Never EXAM: BP 152/100 Pulse (!) 123 Resp 18 SpO2 96% PHYSICAL EXAM: General Appearance: Well appearing, alert, in no acute distress, well-hydrated, well nourished.. Skin: Skin color, texture, turgor normal, no suspicious rashes or lesions. Head: Normocephalic, no masses, lesions, tenderness or abnormalities. Eyes: Anicteric sclera. Extraocular movements are intact. . Lungs: Lungs clear to auscultation. No wheezing, rhonchi, rales.. Heart: RRR without murmur, gallop, or rubs. No ectopy. Extremities: No deformities, skin discoloration, clubbing or cyanosis. Good capillary refill. Trace-+1 LE edema. Neurologic: Gait normal. ASSESSMENT/PLAN: 1. Hypertension, essential - ICD9: 401.9, ICD10: I10 (primary diagnosis) 2. Tachycardia - ICD9: 785.0, ICD10: R00.0 - suboptimal control - Add carvedilol to help with BP and tachycardia. - Recommended regular aerobic exercise. - Recommend home blood pressure monitoring, to bring results in on next visit - Goal of BP <130/80 - CARVEDILOL 6.25 MG TABLET - DILTIAZEM CR 360 MG CAP He will send blood pressures/pulse in in 1 week. Recheck in 2 weeks. Discussed treatment plan and patient voices understanding. Patient's questions answered appropriately. Medications and potential side effects were discussed and patient voices understanding. Return to the office as scheduled or as needed for worsening/no improvement. Farida Sloan APRN.DOORS PREFITTER The patient indicates understanding of these issues and agrees with the plan. This note was partially generated using [employer] voice recognition system. Note was reviewed for accuracy. There may be minor misspellings or grammar miscues with [employer] voice recognition. documented in this encounter [facility] 08-20-2021 Miscellaneous Notes Patient phones requesting refills as follows: Pending Prescriptions Disp Refills ERGOCALCIFEROL (VITAMIN D2) 1,250 MCG (50,000 UNIT) CAPSULE 12 capsule 3 Sig: TAKE 1 CAPSULE BY MOUTH ONE TIME A WEEK. HAYES: Yes Please review and advise. Vonda Way Ma documented in this encounter [facility] 01-07-2021 Note HNO ID: [id number] Author: Venkat Silva MD Service: Infectious Disease Author Type: Physician Type: Plan of Care Filed: 01/07/2021 5:56 PM Note Text: cx lact+ GNB. OK to dc w cefdinir + flagyl Will follow cx and adjust abx outpatient Our office will call for follow up appointment [facility] 01-06-2021 Note HNO ID: [id number] Author: Julián Jansen APRN.DOORS PREFITTER Service: Gastroenterology Author Type: Nurse Practitioner Type: Plan of Care Filed: 01/06/2021 1:33 PM Note Text: GI following the patient for Crohn's exacerbation. Patient off the floor for IR drainage will try back later. Julián Jansen APRN.DOORS PREFITTER [facility] 01-06-2021 Note HNO ID: [id number] Author: Litzy Jones DO Service: Hospital Medicine Author Type: Physician Type: Progress Notes Filed: 01/06/2021 11:08 AM Note Text: DEPARTMENT OF HOSPITAL MEDICINE PROGRESS NOTE SERVICE DATE: 01/06/2021 SERVICE TIME: 11:06 AM Hospital Medicine/Primary Attending: Litzy Jones DO NIGHT AND WEEKEND COVERAGE: BREWSTER COVERAGE: From 7am - 7pm, please call [phone] After 7pm, please call cross cover pager #[phone] Subjective INTERVAL HPI: No clinical change. Frustrated that there seems to be differing plans from surgery and GI MEDICATIONS: Reviewed Objective PHYSICAL EXAM: BP 157/94 Pulse 70 Temp (Src) 98.4 (Oral) Resp 10 Ht 5' 8 (1.73m) Wt 253 lb 14.4 oz (115.2kg) SpO2 92% BMI 38.61 kg/(m2). O2 Therapy: Room Air Physical Exam Constitutional: General: He is not in acute distress. HENT: Head: Normocephalic and atraumatic. Mouth/Throat: Mouth: Mucous membranes are moist. Eyes: Conjunctiva/sclera: Conjunctivae normal. Pupils: Pupils are equal, round, and reactive to light. Cardiovascular: Rate and Rhythm: Normal rate and regular rhythm. Heart sounds: No murmur heard. Pulmonary: Effort: Pulmonary effort is normal. Breath sounds: Normal breath sounds. No wheezing. Abdominal: General: Bowel sounds are normal. There is no distension. Palpations: Abdomen is soft. Tenderness: There is no guarding or rebound. Musculoskeletal: General: No swelling or tenderness. Cervical back: Neck supple. Skin: General: Skin is warm and dry. Neurological: General: No focal deficit present. Mental Status: He is alert. Psychiatric: Mood and Affect: Mood normal. Lines, Drains, and Airways Line Peripheral 01/02/212030 Short Left Wrist 20 Gauge 3 days Drain Drain/Tube 01/06/21 1103 Assessment Estrada Roman Right Upper Quadrant;Anterior Drain #1 <1 day DATA: Diagnostic tests reviewed for today's visit: Most recent labs and imaging results. Assessment/Plan Crohn's flare with fistula and abscess S/p partial ileocolectomy -continue IV solumedrol and IV zosyn -IR drain for abscess today, f/u culture results -MRE, touch base with GI regarding timing -SQH for DVT ppx HTN -cont losartan, toprol, cardizem Chronic anemia -cont to monitor Medication and Non-Pharmacologic VTE Prophylaxis/Anticoagulants Anticoagulant AND Antiplatelet Medications (From admission, onward) Start Dose Route Frequency Last Action Ordered Stop 01/03/21 0900 [MAR Hold due to Transfer] heparin 5,000 Units injection (Medical Risk Categories) (MAR Hold due to Transfer since 01/06/2021 at 1024.Hold Reason: Hold Unreviewed Transfer Orders.) 5,000 Units SUBCUTANEOUS EVERY 12 HOURS Given, 01/06 223601/02/211941 -- VTE Prophylaxis: VTE prophylaxis appropriate Disposition: Home Plan of care discussed with: Provider, RN, Patient SIGNATURE: Litzy Jones DO PATIENT NAME: Annabella Chapa DATE: January 05, 2021 TIME: 11:06 AM etx [id number] [facility] 01-05-2021 Note HNO ID: [id number] Author: Litzy Jones DO Service: Hospital Medicine Author Type: Physician Type: Progress Notes Filed: 01/06/2021 11:09 AM Note Text: DEPARTMENT OF HOSPITAL MEDICINE PROGRESS NOTE SERVICE DATE: 01/05/2021 SERVICE TIME: 11:06 AM Hospital Medicine/Primary Attending: Litzy Jones DO NIGHT AND WEEKEND COVERAGE: BREWSTER COVERAGE: From 7am - 7pm, please call [phone] After 7pm, please call cross cover pager #[phone] Subjective INTERVAL HPI: No new events. 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 O2 Therapy: Room Air Physical Exam Constitutional: General: He is not in acute distress. HENT: Head: Normocephalic and atraumatic. Mouth/Throat: Mouth: Mucous membranes are moist. Eyes: Conjunctiva/sclera: Conjunctivae normal. Pupils: Pupils are equal, round, and reactive to light. Cardiovascular: Rate and Rhythm: Normal rate and regular rhythm. Heart sounds: No murmur heard. Pulmonary: Effort: Pulmonary effort is normal. Breath sounds: Normal breath sounds. No wheezing. Abdominal: General: Bowel sounds are normal. There is no distension. Palpations: Abdomen is soft. Tenderness: There is no guarding or rebound. Musculoskeletal: General: No swelling or tenderness. Cervical back: Neck supple. Skin: General: Skin is warm and dry. Neurological: General: No focal deficit present. Mental Status: He is alert. Psychiatric: Mood and Affect: Mood normal. Lines, Drains, and Airways Line Peripheral 01/02/212030 Short Left Wrist 20 Gauge 3 days Drain Drain/Tube 01/06/21 1103 Assessment Estrada Roman Right Upper Quadrant;Anterior Drain #1 <1 day DATA: Diagnostic tests reviewed for today's visit: Most recent labs and imaging results. Assessment/Plan Crohn's flare with fistula and abscess S/p partial ileocolectomy -continue IV solumedrol and IV zosyn -plan for IR drain tomorrow -MRE, touch base with GI regarding timing -SQH for DVT ppx HTN -cont losartan, toprol, cardizem Chronic anemia -cont to monitor Medication and Non-Pharmacologic VTE Prophylaxis/Anticoagulants Anticoagulant AND Antiplatelet Medications (From admission, onward) Start Dose Route Frequency Last Action Ordered Stop 01/03/21 0900 [MAR Hold due to Transfer] heparin 5,000 Units injection (Medical Risk Categories) (MAR Hold due to Transfer since Wed01/06/2021 at 1024.Hold Reason: Hold Unreviewed Transfer Orders.) 5,000 Units SUBCUTANEOUS EVERY 12 HOURS Given, 01/05 2236 01/02/21 194 -- VTE Prophylaxis: VTE prophylaxis appropriate Disposition: Home Plan of care discussed with: Provider, RN, Patient SIGNATURE: Litzy Jones DO PATIENT NAME: Annabella Chapa DATE: January 05, 2021 TIME: 11:06 AM etx [id number] [facility] 01-04-2021 Note HNO ID: [id number] Author: Litzy Jones DO Service: Hospital Medicine Author Type: Physician Type: Progress Notes Filed: 01/04/2021 11:44 AM Note Text: DEPARTMENT OF HOSPITAL MEDICINE PROGRESS NOTE SERVICE DATE: 01/03/2021 SERVICE TIME: 11:42 AM Hospital Medicine/Primary Attending: Litzy Jones DO NIGHT AND WEEKEND COVERAGE: BREWSTER COVERAGE: From 7am - 7pm, please call [phone] After 7pm, please call cross cover pager #[phone] Subjective INTERVAL HPI: No new events. Patient feeling fine MEDICATIONS: Reviewed Objective PHYSICAL EXAM: BP 153/90 Pulse 76 Temp (Src) 98.2 (Oral) Resp 18 Ht 5' 8 (1.73m) Wt 248 lb 4.8 oz (112.6kg) SpO2 98% BMI 37.76 kg/(m2). O2 Therapy: Room Air Physical Exam Constitutional: General: He is not in acute distress. HENT: Head: Normocephalic and atraumatic. Mouth/Throat: Mouth: Mucous membranes are moist. Eyes: Conjunctiva/sclera: Conjunctivae normal. Pupils: Pupils are equal, round, and reactive to light. Cardiovascular: Rate and Rhythm: Normal rate and regular rhythm. Heart sounds: No murmur heard. Pulmonary: Effort: Pulmonary effort is normal. Breath sounds: Normal breath sounds. No wheezing. Abdominal: General: Bowel sounds are normal. There is no distension. Palpations: Abdomen is soft. Tenderness: There is abdominal tenderness (mild epigastric and RUQ). There is no guarding or rebound. Musculoskeletal: General: No swelling or tenderness. Cervical back: Neck supple. Skin: General: Skin is warm and dry. Neurological: General: No focal deficit present. Mental Status: He is alert. Psychiatric: Mood and Affect: Mood normal. Lines, Drains, and Airways Line Peripheral 01/02/212030 Short Left Wrist 20 Gauge 1 day DATA: Diagnostic tests reviewed for today's visit: Most recent labs and imaging results. Assessment/Plan Crohn's flare with fistula and abscess S/p partial ileocolectomy -continue IV solumedrol and IV zosyn -ID, GI and surgery recs appreciated. No plan for acute surgical intervention. -MRE next week -SQH for DVT ppx HTN -cont losartan, toprol, cardizem Chronic anemia -cont to monitor Medication and Non-Pharmacologic VTE Prophylaxis/Anticoagulants Anticoagulant AND Antiplatelet Medications (From admission, onward) Start Dose Route Frequency Last Action Ordered Stop 01/03/21 0900 heparin 5,000 Units injection (Medical Risk Categories) 5,000 Units SUBCUTANEOUS EVERY 12 HOURS Given, 01/04 0801/02/211941 -- VTE Prophylaxis: VTE prophylaxis appropriate Disposition: Home Plan of care discussed with: Provider, RN, Patient SIGNATURE: Litzy Jones DO PATIENT NAME: Annabella Chapa DATE: January 04, 2021 TIME: 11:42 AM etx [id number] [facility] 01-04-2021 Note HNO ID: [id number] Author: Hugh Ramirez MD Service: General Surgery Author Type: Resident Type: Progress Notes Filed: 01/04/2021 7:58 AM Note Text: Attestation signed by Lavelle Campoverde MD at 01/04/2021 12:05 PM I saw and evaluated the patient. Discussed with the resident and agree with resident's findings and plan as documented in the resident's note. [facility] ([facility]) Progress Note SERVICE DATE: January 04, 2021 Elective General Surgery (Green Surgery) Service Pager: For questions or concerns Mon-Fri 6a-5p please page [phone]. After 5pm and on Weekends and Holidays, please page [phone]. SUBJECTIVE: NAEO. Patient states he was able to get some good rest. He denies any n/v, f/c, abdominal pain, abdominal distension or obstipation. He confirms flatus and BM's. Tolerating diet DIET LIQUID Nausea No Emesis No Flatus Yes Bowel movement Yes Pain Controlled Yes Ambulating Yes OBJECTIVE: Vitals: Temp (24hrs), Av.7 ?C (98.1 ?F), Min:36.7 ?C (98.1 ?F), Max:36.7 ?C (98.1 ?F) BP 149/97 Pulse 70 Temp 36.7 ?C (98.1 ?F) (Oral) Resp 18 Ht 172.7 cm (5' 8) Wt 112.6 kg (248 lb 4.8 oz) SpO2 96% BMI 37.75 kg/m? O2 Therapy: Room Air IANDO: MEDICATIONS: Current Facility-Administered Medications Medication Dose Route Frequency - piperacillin-tazobactam iv piggyback 3.375 g in dextrose (iso-osmotic) 50 mL (ZOSYN) 3.375 g INTRAVENOUS q 6 H - ergocalciferol (vitamin D2) 50,000 Units cap(s) (DRISDOL) 50,000 Units ORAL 1/WK - perflutren lipid microspheres 1.3 mL in NaCl (PF) 0.9% 10 mL injection (DEFINITY) INTRAVENOUS DIRECTED PRN - sodium chloride 0.9 % (flush) 10 mL (BD POSIFLUSH) 10 mL INTRAVENOUS DIRECTED PRN - dilTIAZem CD 300 mg cap(s) (CARDIZEM CD, CARTIA XT) 300 mg ORAL DAILY - losartan 100 mg tab(s) (COZAAR) 100 mg ORAL DAILY - NaCl 0.9% iv flush bag 20 mL INTRAVENOUS PRN - ondansetron 4 mg tab(s) (ZOFRAN) 4 mg ORAL q 6 H PRN Or - ondansetron (PF) 4 mg injection (ZOFRAN) 4 mg INTRAVENOUS q 6 H PRN - acetaminophen 650 mg tab(s) (TYLENOL) 650 mg ORAL q 6 H PRN - heparin 5,000 Units injection 5,000 Units SUBCUTANEOUS q 12 H - sodium chloride 0.9 % (flush) 3-5 mL (BD POSIFLUSH) 3-5 mL INTRAVENOUS q 12 H - guaiFENesin 600 mg ER tab(s) (MUCINEX) 600 mg ORAL q 12 H PRN - docusate sodium 100 mg cap(s) (COLACE) 100 mg ORAL BID PRN - aluminum-magnesium hydroxide-simethicone 200-200-20 mg/5 mL 30 mL (MAALOX,MYLANTA,MAG-AL PLUS) 30 mL ORAL q 6 H PRN - melatonin 3 mg tab(s) 3 mg ORAL HS PRN - polyvinyl alcohol-povidone 1.4-0.6 % 1 Drop (REFRESH) 1 Drop BOTH EYES PRN - sodium chloride 0.65 % 2 Trezevant (AYR, OCEAN) 2 Trezevant EACH NOSTRIL PRN - Lip Protectant with Sunscreen SPF 15 1 application Stick (Blistex) 1 application TOPICAL PRN - saliva substitute combo no.9 15 mL (BIOTENE mouthwash) 15 mL MUCOUS MEMBRANE (TOPICAL MOUTH AND THROAT) TID PRN - benzocaine-menthol 1 Lozenge (CEPACOL) 1 Lozenge MUCOUS MEMBRANE (TOPICAL MOUTH AND THROAT) q 2 H PRN - lactated ringers iv infusion 75 mL/hr INTRAVENOUS CONTINUOUS - metoprolol succinate ER 50 mg tab(s) (TOPROL XL) 50 mg ORAL AT BEDTIME - methylPREDNISolone sod succinate(PF) 60 mg injection (SOLU-Medrol) 60 mg INTRAVENOUS q 6 H Labs: Recent Labs 01/04/21 0613 01/03/21 0308 01/02/21 2128 01/02/212127 NA 139 139 < > 141 K 4.0 4.4 < > 4.2 CHLOR 105 104 < > 106* CO2 25 23 < > 24 BUN 16 17 < > 17 CREAT 1.09 1.08 < > 1.09 GLUC 130* 137* < > 93 ANION 9 12 < > 11 CA 9.4 9.3 < > 9.4 ALB 3.7* -- -- 4.1 AST 15 -- -- 14 ALT 26 -- -- 30 ALKPHOS 65 -- -- 74 TBILI 0.7 -- -- 0.8 WBC 15.76* 8.18 < > 9.80 HB 12.5* 12.3* < > 12.9* HCT 37.7* 37.9* < > 39.3 PLT 168 151 < > 179 < > = values in this interval not displayed. Exam: GENERAL: resting comfortably, in no acute distress HEENT: normocephalic, atraumatic, EOMI NECK: trachea midline, no JVD LUNGS: Unlabored breathing, equal chest rise bilaterally CARDIAC: Regular rate and rhythm as above ABDOMEN: Soft, non-tender, non-distended, no masses or organomegaly. 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 [facility] 01-03-2021 Note HNO ID: [id number] Author: Renuka Emanuel RPh Service: Pharmacy Author Type: Pharmacist Type: Progress Notes Filed: 01/03/2021 9:03 PM Note Text: Pharmacy Consult Agreement: Renal Dose Adjustment Patient Name: Annabella Chapa Service Date: 01/03/2021 Service Time: 9:01 PM The following changes have been made to the patient's medication therapy as part of the pharmacy consult agreement. Estimated CrCl: Estimated Creatinine Clearance: 108.9 mL/min (based on SCr of 1.08 mg/dL). Current Therapy: Zosyn 3.375 g q8h New Therapy: Zosyn 3.375 g q6h (CrCl >40 mL/min) Thank you for allowing me to participate in the care for this patient. Signature: Renuka Emanuel RPh Pager/Extension: [phone] [facility] 01-03-2021 Note HNO ID: [id number] Author: Litzy Jones DO Service: Hospital Medicine Author Type: Physician Type: Progress Notes Filed: 01/03/2021 10:40 AM Note Text: DEPARTMENT OF HOSPITAL MEDICINE PROGRESS NOTE SERVICE DATE: 01/03/2021 SERVICE TIME: 10:35 AM Hospital Medicine/Primary Attending: Litzy Jones DO NIGHT AND WEEKEND COVERAGE: LEIA COVERAGE: From 7am - 7pm, please call [phone] After 7pm, please call cross cover pager #[phone] Subjective INTERVAL HPI: Feels okay, just having some tightness in his RUQ occasionally but says he feels better than he thinks his imaging looks. MEDICATIONS: Reviewed Objective PHYSICAL EXAM: BP 149/91 Pulse 77 Temp (Src) 98.1 (Oral) Resp 18 Ht 5' 8 (1.73m) Wt 245 lb (111.1kg) SpO2 97% BMI 37.26 kg/(m2). O2 Therapy: Room Air Physical Exam Constitutional: General: He is not in acute distress. HENT: Head: Normocephalic and atraumatic. Mouth/Throat: Mouth: Mucous membranes are moist. Eyes: Conjunctiva/sclera: Conjunctivae normal. Pupils: Pupils are equal, round, and reactive to light. Cardiovascular: Rate and Rhythm: Normal rate and regular rhythm. Heart sounds: No murmur heard. Pulmonary: Effort: Pulmonary effort is normal. Breath sounds: Normal breath sounds. No wheezing. Abdominal: General: Bowel sounds are normal. There is no distension. Palpations: Abdomen is soft. Tenderness: There is abdominal tenderness (mild epigastric and RUQ). There is no guarding or rebound. Musculoskeletal: General: No swelling or tenderness. Cervical back: Neck supple. Skin: General: Skin is warm and dry. Neurological: General: No focal deficit present. Mental Status: He is alert. Psychiatric: Mood and Affect: Mood normal. Lines, Drains, and Airways Line Peripheral 01/02/212030 Short Left Wrist 20 Gauge <1 day DATA: Diagnostic tests reviewed for today's visit: Most recent labs and imaging results. Assessment/Plan Crohn's flare with fistula and abscess S/p partial ileocolectomy -continue IV solumedrol -cont IV zosyn and flagyl per GI recs, ID consulted. recs appreciated -surgery consult, recs appreciated -MRE next week -SQH for DVT ppx HTN -cont losartan, toprol, cardizem Chronic anemia -cont to monitor Medication and Non-Pharmacologic VTE Prophylaxis/Anticoagulants Anticoagulant AND Antiplatelet Medications (From admission, onward) Start Dose Route Frequency Last Action Ordered Stop 01/03/21 0900 heparin 5,000 Units injection (Medical Risk Categories) 5,000 Units SUBCUTANEOUS EVERY 12 HOURS Given, 01/03 81501/02/211941 -- 01/02/211944 activity - mobilize patient (ok,az) VTE Prophylaxis: VTE prophylaxis appropriate Disposition: Home Plan of care discussed with: Provider, RN, Patient SIGNATURE: Litzy Jones DO PATIENT NAME: Annabella Chapa DATE: January 03, 2021 TIME: 10:35 AM etx [id number] [facility] 04-14-2017 History of Past i llness Narrative Problem Noted Date Resolved Date Generalized abdominal pain 04/14/201706/30 documented as of this encounter (statuses as of 08/20/2021) [facility]15[facility]2017 History of Past illness Narrative* Problem Noted Date Resolved Date Generalized abdominal pain 04/14/201706/30 documented as of this encounter (statuses as of 09/22/2021) [address]-2017 History of Past illness Narrative* Problem Noted Date Resolved Date Generalized abdominal pain 04/14/201706/30 documented as of this encounter (statuses as of 09/29/2021) [address]2017 History of Past illness Narrative* Problem Noted Date Resolved Date Generalized abdominal pain 04/14/201706/30 documented as of this encounter (statuses as of 10/06/2021) [address]2017 History of Past illness Narrative* Problem Noted Date Resolved Date Generalized abdominal pain 04/14/201706/30 documented as of this encounter (statuses as of 10/17/2021) [address]2017 History of Past illness Narrative* Problem Noted Date Resolved Date Generalized abdominal pain 04/14/201706/30 documented as of this encounter (statuses as of 10/23/2021) [address]2017 History of Past illness Narrative* Problem Noted Date Resolved Date Generalized abdominal pain 04/14/201706/30 documented as of this encounter (statuses as of 10/23/2021) [address]2017 History of Past illness Narrative* Problem Noted Date Resolved Date Generalized abdominal pain 04/14/201706/30 documented as of this encounter (statuses as of 11/21/2021) [address]2017 History of Past illness Narrative* Problem Noted Date Resolved Date Generalized abdominal pain 04/14/201706/30 documented as of this encounter (statuses as of 11/25/2021) [address]2017 History of Past illness Narrative* Problem Noted Date Resolved Date Generalized abdominal pain 04/14/201706/30 documented as of this encounter (statuses as of 11/26/2021) [address]2017 History of Past illness Narrative* Problem Noted Date Resolved Date Generalized abdominal pain 04/14/201706/30 documented as of this encounter (statuses as of 01/21/2022) [address]2017 History of Past illness Narrative* Problem Noted Date Resolved Date Generalized abdominal pain 04/14/201706/30 documented as of this encounter (statuses as of 02/28/2022) [address]2017 History of Past illness Narrative* Problem Noted Date Resolved Date Generalized abdominal pain 04/14/201706/30 documented as of this encounter (statuses as of 04/24/2022) [address]2017 History of Past illness Narrative* Problem Noted Date Resolved Date Generalized abdominal pain 04/14/201706/30 documented as of this encounter (statuses as of 04/27/2022) [address]2017 History of Past illness Narrative* Problem Noted Date Resolved Date Generalized abdominal pain 04/14/201706/30 documented as of this encounter (statuses as of 05/11/2022) [address]2017 History of Past illness Narrative* Problem Noted Date Resolved Date Generalized abdominal pain 04/14/201706/30 documented as of this encounter (statuses as of 07/06/2022) [address]2017 History of Past illness Narrative* Problem Noted Date Resolved Date Generalized abdominal pain 04/14/201706/30 documented as of this encounter (statuses as of 07/07/2022) [address]2017 History of Past illness Narrative* Problem Noted Date Resolved Date Generalized abdominal pain 04/14/201706/30 documented as of this encounter (statuses as of 09/01/2022) [address]2017 History of Past illness Narrative* Problem Noted Date Resolved Date Generalized abdominal pain 04/14/201706/30 documented as of this encounter (statuses as of 10/08/2022) [address]2017 History of Past illness Narrative* Problem Noted Date Resolved Date Generalized abdominal pain 04/14/201706/30 documented as of this encounter (statuses as of 10/27/2022) [address]2017 History of Past illness Narrative* Problem Noted Date Resolved Date Generalized abdominal pain 04/14/201706/30 documented as of this encounter (statuses as of 11/03/2022) [address]2017 History of Past illness Narrative* Problem Noted Date Resolved Date Generalized abdominal pain 04/14/201706/30 documented as of this encounter (statuses as of 11/26/2022) [address]2017 History of Past illness Narrative* Problem Noted Date Diagnosed Date Resolved Date Generalized abdominal pain 04/14/2017 0 06/30/2018 documented as of this encounter (statuses as of 12/08/2022) [address]2017 History of Past illness Narrative* Problem Noted Date Diagnosed Date Resolved Date Generalized abdominal pain 04/14/2017 0 06/30/2018 documented as of this encounter (statuses as of 12/10/2022) [address]2017 History of Past illness Narrative* Problem Noted Date Diagnosed Date Resolved Date Generalized abdominal pain 04/14/2017 0 06/30/2018 documented as of this encounter (statuses as of 12/11/2022) [address]2017 History of Past illness Narrative* Problem Noted Date Diagnosed Date Resolved Date Generalized abdominal pain 04/14/2017 0 06/30/2018 documented as of this encounter (statuses as of 12/14/2022) [address]2017 History of Past illness Narrative* Problem Noted Date Diagnosed Date Resolved Date Generalized abdominal pain 04/14/2017 0 06/30/2018 documented as of this encounter (statuses as of 12/16/2022) [address]2017 History of Past illness Narrative* Problem Noted Date Diagnosed Date Resolved Date Generalized abdominal pain 04/14/2017 0 06/30/2018 documented as of this encounter (statuses as of 12/29/2022) [address]-2017 History of Past illness Narrative* Problem Noted Date Diagnosed Date Resolved Date Generalized abdominal pain 04/14/2017 0 06/30/2018 documented as of this encounter (statuses as of 01/14/2023) [address]-2017 History of Past illness Narrative* Problem Noted Date Diagnosed Date Resolved Date Generalized abdominal pain 04/14/2017 0 06/30/2018 documented as of this encounter (statuses as of 01/20/2023) [address]-2017 History of Past illness Narrative* Problem Noted Date Diagnosed Date Resolved Date Generalized abdominal pain 04/14/2017 0 06/30/2018 documented as of this encounter (statuses as of 02/05/2023) [address]-2017 History of Past illness Narrative* Problem Noted Date Diagnosed Date Resolved Date Generalized abdominal pain 04/14/2017 0 06/30/2018 documented as of this encounter (statuses as of 02/09/2023) [address]2017 History of Past illness Narrative* Problem Noted Date Diagnosed Date Resolved Date Generalized abdominal pain 04/14/2017 0 06/30/2018 documented as of this encounter (statuses as of 02/10/2023) [address]2017 History of Past illness Narrative* Problem Noted Date Diagnosed Date Resolved Date Generalized abdominal pain 04/14/2017 0 06/30/2018 documented as of this encounter (statuses as of 03/11/2023) [address] History of Past illness Narrative* Problem Noted Date Diagnosed Date Resolved Date Generalized abdominal pain 04/14/2017 0 06/30/2018 documented as of this encounter (statuses as of 03/13/2023) [address]2017 History of Past illness Narrative* Problem Noted Date Diagnosed Date Resolved Date Generalized abdominal pain 04/14/2017 0 06/30/2018 documented as of this encounter (statuses as of 04/01/2023) [address]2017 History of Past illness Narrative* Problem Noted Date Diagnosed Date Resolved Date Generalized abdominal pain 04/14/2017 0 06/30/2018 documented as of this encounter (statuses as of 04/12/2023) [address]2017 History of Past illness Narrative* Problem Noted Date Diagnosed Date Resolved Date Generalized abdominal pain 04/14/2017 0 06/30/2018 documented as of this encounter (statuses as of 04/13/2023) [address]2017 History of Past illness Narrative* Problem Noted Date Diagnosed Date Resolved Date Generalized abdominal pain 04/14/2017 0 06/30/2018 documented as of this encounter (statuses as of 04/20/2023) [address]15-2017 History of Past illness Narrative* Problem Noted Date Diagnosed Date Resolved Date Generalized abdominal pain 04/14/2017 0 06/30/2018 documented as of this encounter (statuses as of 07/13/2023) [address]15-2017 History of Past illness Narrative* Problem Noted Date Diagnosed Date Resolved Date Generalized abdominal pain 04/14/2017 0 06/30/2018 documented as of this encounter (statuses as of 07/20/2023) [address]15-2017 History of Past illness Narrative* Problem Noted Date Diagnosed Date Resolved Date Generalized abdominal pain 04/14/2017 0 06/30/2018 documented as of this encounter (statuses as of 08/09/2023) [facility] Diagnosis Vitamin D deficiency Unspecified vitamin D deficiency [facility] Diagnosis Hypertension, essential- Primary Unspecified essential hypertension Tachycardia Tachycardia, unspecified [facility]* Diagnosis Crohn's disease of small intestine with complication (HCC)- Primary Regional enteritis of small intestine [facility] Diagnosis Hypertension, essential- Primary Unspecified essential hypertension Resistant hypertension Essential hypertension Unspecified essential hypertension [facility] Diagnosis Hypertension, essential Unspecified essential hypertension [facility] Diagnosis Crohn's disease of both small and large intestine without complication (HCC) Regional enteritis of small intestine with large intestine [facility] Diagnosis Crohn's disease of small intestine without complication (HCC)- Primary Regional enteritis of small intestine [facility] Diagnosis Crohn's disease of small intestine with complication (HCC)- Primary Regional enteritis of small intestine [facility] Diagnosis Crohn's disease of small intestine with complication (HCC)- Primary Regional enteritis of small intestine [facility] Diagnosis Crohn's disease of both small and large intestine without complication (HCC) Regional enteritis of small intestine with large intestine [facility] Diagnosis Crohn's disease of both small and large intestine without complication (HCC) Regional enteritis of small intestine with large intestine [facility] Diagnosis Essential hypertension Unspecified essential hypertension [facility] Diagnosis Crohn's disease of small intestine with complication (HCC)- Primary Regional enteritis of small intestine [facility] Diagnosis Crohn's disease of both small and large intestine without complication (HCC) Regional enteritis of small intestine with large intestine [facility] Diagnosis Crohn's disease of small intestine with complication (HCC)- Primary Regional enteritis of small intestine [facility] Diagnosis Crohn's disease of both small and large intestine without complication (HCC)- Primary Regional enteritis of small intestine with large intestine Special screening examination for viral disease Special screening examination for unspecified viral disease [facility] Diagnosis B12 deficiency Other B-complex deficiencies Vitamin D deficiency Unspecified vitamin D deficiency Crohn's disease of both small and large intestine without complication (HCC) Regional enteritis of small intestine with large intestine [facility] Diagnosis Special screening examination for viral disease- Primary Special screening examination for unspecified viral disease [facility]* Diagnosis Type 2 diabetes mellitus without complication, without long-term current use of insulin (HCC)- Primary [facility]* Diagnosis Crohn's disease of small intestine with complication (HCC)- Primary Regional enteritis of small intestine [facility] Diagnosis Hypertension, essential Unspecified essential hypertension [facility] Diagnosis Type 2 diabetes mellitus without complication, without long-term current use of insulin (HCC)- Primary Hypertension, essential Unspecified essential hypertension [facility] Diagnosis Type 2 diabetes mellitus without complication, without long-term current use of insulin (HCC)- Primary [facility] Diagnosis Type 2 diabetes mellitus without complication, without long-term current use of insulin (HCC)- Primary High urine creatine Hypertension, essential Unspecified essential hypertension [facility]* Diagnosis Essential hypertension Unspecified essential hypertension [facility] Diagnosis Hypertension, essential Unspecified essential hypertension [facility] Diagnosis Hypertension, essential Unspecified essential hypertension [facility] Diagnosis Hypertension, essential Unspecified essential hypertension [facility] Diagnosis Anemia, unspecified type- Primary Crohn's disease of both small and large intestine with other complication (HCC) [facility] Diagnosis Crohn's disease of both small and large intestine with other complication (HCC)- Primary [facility]* Diagnosis Hypertension, essential- Primary Unspecified essential hypertension Encounter for immunization Need for other specified prophylactic vaccination against single bacterial disease Type 2 diabetes mellitus without complication, without long-term current use of insulin (HCC) Hypertriglyceridemia Pure hyperglyceridemia [facility]* Diagnosis Crohn's disease of both small and large intestine with other complication (HCC)- Primary [facility]* Diagnosis Crohn's disease of both small and large intestine with other complication (HCC)- Primary [facility]* Diagnosis B12 deficiency Other B-complex deficiencies Crohn's disease of both small and large intestine without complication (HCC) Regional enteritis of small intestine with large intestine [facility]* Diagnosis Essential hypertension Unspecified essential hypertension [facility]* Diagnosis Crohn's disease of both small and large intestine with other complication (HCC)- Primary [facility] Acute cough [facility] Diagnosis Crohn's disease of both small and large intestine without complication (HCC) Regional enteritis of small intestine with large intestine B12 deficiency Other B-complex deficiencies [facility] Diagnosis Vitamin D deficiency Unspecified vitamin D deficiency [facility]* Diagnosis Crohn's disease of both small and large intestine without complication (HCC) Regional enteritis of small intestine with large intestine B12 deficiency Other B-complex deficiencies [facility]* Diagnosis Hypertension, essential Unspecified essential hypertension [facility]* Diagnosis Essential hypertension- Primary Unspecified essential hypertension Type 2 diabetes mellitus without complication, without long-term current use of insulin (HCC) Hypertriglyceridemia Pure hyperglyceridemia Anemia, unspecified type [facility]* Diagnosis Crohn's disease of both small and large intestine without complication (HCC) Regional enteritis of small intestine with large intestine [facility]* Diagnosis Sinobronchitis- Primary Unspecified sinusitis (chronic) Vitamin B12 deficiency Other B-complex deficiencies Type 2 diabetes mellitus without complication, without long-term current use of insulin (HCC) Hypertriglyceridemia Pure hyperglyceridemia Anemia, unspecified type Vitamin D deficiency Unspecified vitamin D deficiency Essential hypertension Unspecified essential hypertension Crohn's disease of small intestine with complication (HCC) Regional enteritis of small intestine [facility]* Diagnosis B12 deficiency Other B-complex deficiencies [facility]* Diagnosis Crohn's disease of both small and large intestine without complication (HCC)- Primary Regional enteritis of small intestine with large intestine Special screening examination for viral disease Special screening examination for unspecified viral disease [facility]* Diagnosis Crohn's disease of both small and large intestine with other complication (HCC)- Primary [facility]* Diagnosis Pain in right foot- Primary Pain in limb [facility]* Diagnosis Foot pain, right- Primary Pain in limb Rib pain on right side Chest pain, unspecified Closed nondisplaced fracture of fourth metatarsal bone of right foot, initial encounter Closed nondisplaced fracture of fifth metatarsal bone of right foot, initial encounter Closed fracture of one rib of right side, initial encounter Foot pain, right Pain in limb Rib pain on right side Chest pain, unspecified [facility]* Diagnosis Foot pain, right Pain in limb Rib pain on right side Chest pain, unspecified [facility] Diagnosis Closed nondisplaced fracture of fourth metatarsal bone of right foot, initial encounter Closed nondisplaced fracture of fifth metatarsal bone of right foot, initial encounter [facility] Diagnosis Essential hypertension Unspecified essential hypertension documented in this encounter [facility]* Diagnosis Crohn's disease of both small and large intestine with other complication (HCC)- Primary [facility]* Diagnosis B12 deficiency Other B-complex deficiencies [facility]* Diagnosis Type 2 diabetes mellitus without complication, without long-term current use of insulin (HCC)- Primary Hypertension, essential Unspecified essential hypertension Vitamin D deficiency Unspecified vitamin D deficiency Crohn's disease of small intestine with complication (HCC) Regional enteritis of small intestine Anemia, unspecified type Hypertriglyceridemia Pure hyperglyceridemia [facility]* Diagnosis Crohn's disease of both small and large intestine with other complication (HCC)- Primary [facility]* Diagnosis Crohn's disease of both small and large intestine without complication (HCC) Regional enteritis of small intestine with large intestine [facility] Diagnosis Crohn's disease of both small and large intestine with other complication (HCC)- Primary documented in this encounter [facility] for referral (narrative)* Outpatient Procedure (Routine) - Closed Specialty Diagnoses / Procedures Referred By Lj t Referred To Contact [facility] Diagnoses Crohn's disease of both small and large intestine with other complication (HCC) Procedures COLONOSCOPY DIAGNOSTIC COLONOSCOPY FLX DX W/COLLJ SPEC WHEN PFRMD Roxanne Montaño PA-C [address] [place] [address] [facility] [place] [address] Referral ID Status Reason Start Date Expiration Date V isits Requested Visits Authorized [id number] Closed Auto-Generate d Referral 06/28/2023 05/30/2024 1 1 [facility] for visit Narrative* Outpatient Procedure (Routine) - Closed Specialty Diagnoses / Procedures Referred By Lj t Referred To Contact [facility] Diagnoses Crohn's disease of both small and large intestine with other complication (HCC) Procedures COLONOSCOPY DIAGNOSTIC COLONOSCOPY FLX DX W/COLLJ SPEC WHEN PFRMD Roxanne Montaño PA-C [address] [facility] [place] [address] [facility] [address] [place] [address] Referral ID Status Reason Start Date Expiration Date V isits Requested Visits Authorized [id number] Closed Auto-Generate d Referral 06/28/2023 05/30/2024 1 1 [facility] Diagnostic Procedure Only (Urgent) - Closed Specialty Diagnoses / Procedures Referred By Lj lucas Referred To Contact [facility] Diagnoses Rib pain on right side Procedures XR RIBS/CHEST 3V AP RIB/OBLS/CXR RIGHT RADEX RIBS UNI W/POSTEROANT CH MINIMUM 3 VIEWS Lucho Castillo PA [address] [place] [address] Phone: tel: fax: [place] [id number] Referral ID Status Reason Start Date Expiration Date V isits Requested Visits Authorized [id number] Closed Auto-Generate d Referral 07/28/2024 08/27/2025 1 1 [facility] Summary Purpose Family History No Family History Records FoundNo Family History Records FoundNo Family History Records FoundNo Family History Records FoundNo Family History Records Found Advance Directives No Advanced Directives Records FoundDocuments on File Type Date 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 Advance Directive(s) 01/20/2021 2:01 PM Advance Directive(s) 01/14/2021 11:26 AM Advance Directive(s) 01/02/2021 6:18 PM Advance Directive(s) 02/03/2019 6:47 AM Advance Directive(s) 05/25/2018 8:29 AM Documents on File Type Date Recorded 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 Advance Directive(s) 01/20/2021 2:01 PM Advance Directive(s) 01/14/2021 11:26 AM Advance Directive(s) 01/02/2021 6:18 PM Advance Directive(s) 02/03/2019 6:47 AM Advance Directive(s) 05/25/2018 8:29 AM Medications Administered Section Inactive Administered Medications - up to 3 most recent administrations Medication Order [facility] Action Action Date Dose Rate Site vedolizumab 300 mg in NaCl 0.9% 250 mL (ENTYVIO) 300 mg, INTRAVENOUS, Administer over 30 Minutes, ONCE, 1 dose, On Wed09/29/21 at 1530, Approx Total Volume - Expires: 09/30/21 @ 0325 After the infusion is complete flush with 30 mL of sterile 0.9% Sodium Chloride Injection. Refrigerate. EXP: (24 HR) New Bag/Syringe/Bottle 09/29/2021 3:35 PM EDT 300 mg Inactive Administered Medications - up to 3 most recent administrations Medication Order [facility] Action Action Date Dose Rate Site vedolizumab 300 mg in NaCl 0.9% 250 mL (ENTYVIO) 300 mg, INTRAVENOUS, Administer over 30 Minutes, ONCE, 1 dose, On Wed11/26/21 at 1530, Approx Total Volume: 280 mL After the infusion is complete flush with 30 mL of sterile 0.9% Sodium Chloride Injection. Refrigerate. EXP: (24 HR) New Bag/Syringe/Bottle 11/26/2021 3:41 PM EDT 300 mg Inactive Administered Medications - up to 3 most recent administrations Medication Order [facility] Action Action Date Dose Rate Site acetaminophen 650 mg tab(s) (TYLENOL) 650 mg, ORAL, ONCE, 1 dose, On Wed01/21/22 at 1500, If ordered PRN for pain, patient/guardian may elect to receive this medication for higher pain levels INSTEAD of the opioid, if preferred: N/A Given 01/21/2022 3:04 PM EDT 650 mg diphenhydrAMINE 25 mg (BENADRYL) 25 mg, ORAL, ONCE, 1 dose, On Wed01/21/22 at 1500 Given 01/21/2022 3:04 PM EDT 25 mg vedolizumab 300 mg in NaCl 0.9% 250 mL (ENTYVIO) 300 mg, INTRAVENOUS, Administer over 30 Minutes, ONCE, 1 dose, On Wed01/21/22 at 1500, Approx Total Volume: 280 mL After the infusion is complete flush with 30 mL of sterile 0.9% Sodium Chloride Injection. Refrigerate. EXP: (24 HR) New Bag/Syringe/Bottle 01/21/2022 3:07 PM EDT 300 mg Inactive Administered Medications - up to 3 most recent administrations Medication Order [facility] Action Action Date Dose Rate Site vedolizumab 300 mg in NaCl 0.9% 250 mL (ENTYVIO) 300 mg, INTRAVENOUS, Administer over 30 Minutes, ONCE, 1 dose, On Wed05/11/22 at 1530, Approx Total Volume: 280 mL After the infusion is complete flush with 30 mL of sterile 0.9% Sodium Chloride Injection. Refrigerate. EXP: (24 HR) New Bag/Syringe/Bottle 05/11/2022 3:30 PM EST 300 mg Inactive Administered Medications - up to 3 most recent administrations Medication Order [facility] Action Action Date Dose Rate Site vedolizumab 300 mg in NaCl 0.9% 250 mL (ENTYVIO) 300 mg, INTRAVENOUS, Administer over 30 Minutes, ONCE, 1 dose, On Wed07/06/22 at 1530, Approx Total Volume: 280 mL After the infusion is complete flush with 30 mL of sterile 0.9% Sodium Chloride Injection. Refrigerate. EXP: (24 HR) New Bag/Syringe/Bottle 07/06/2022 3:21 PM EST 300 mg Inactive Administered Medications - up to 3 most recent administrations Medication Order [facility] Action Action Date Dose Rate Site vedolizumab 300 mg in NaCl 0.9% 250 mL (ENTYVIO) 300 mg, INTRAVENOUS, Administer over 30 Minutes, ONCE, 1 dose, On Wed08/31/22 at 1530, Approx Total Volume: 280 mL After the infusion is complete flush with 30 mL of sterile 0.9% Sodium Chloride Injection. Refrigerate. EXP: (24 HR) New Bag/Syringe/Bottle 08/31/2022 3:28 PM EDT 300 mg Inactive Administered Medications - up to 3 most recent administrations Medication Order [facility] Action Action Date Dose Rate Site vedolizumab 300 mg in NaCl 0.9% 250 mL (ENTYVIO) 300 mg, INTRAVENOUS, Administer over 30 Minutes, ONCE, 1 dose, On Wed11/02/22 at 1500, Approx Total Volume: 280 mL After the infusion is complete flush with 30 mL of sterile 0.9% Sodium Chloride Injection. Refrigerate. EXP: (24 HR) New Bag/Syringe/Bottle 11/02/2022 2:54 PM EDT 300 mg Inactive Administered Medications - up to 3 most recent administrations Medication Order [facility] Action Action Date Dose Rate Site acetaminophen 650 mg tab(s) (TYLENOL) 650 mg, ORAL, ONCE, 1 dose, On Wed12/28/22 at 1430, If ordered PRN for pain, patient/guardian may elect to receive this medication for higher pain levels INSTEAD of the opioid, if preferred: N/A Given 12/28/2022 2:44 PM EDT 650 mg diphenhydrAMINE 25 mg (BENADRYL) 25 mg, ORAL, ONCE, 1 dose, On Wed12/28/22 at 1430 Given 12/28/2022 2:44 PM EDT 25 mg vedolizumab 300 mg in NaCl 0.9% 250 mL (ENTYVIO) 300 mg, INTRAVENOUS, Administer over 30 Minutes, ONCE, 1 dose, On Wed12/28/22 at 1430, Approx Total Volume: 280 mL After the infusion is complete flush with 30 mL of sterile 0.9% Sodium Chloride Injection. Refrigerate. EXP: (24 HR) New Bag/Syringe/Bottle 12/28/2022 2:51 PM EDT 300 mg Inactive Administered Medications - up to 3 most recent administrations Medication Order [facility] Action Action Date Dose Rate Site vedolizumab 300 mg in NaCl 0.9% 250 mL (ENTYVIO) 300 mg, INTRAVENOUS, Administer over 30 Minutes, ONCE, 1 dose, On Wed04/19/23 at 1430, Approx Total Volume - Expires: 04/20/23 @ 0230 After the infusion is complete flush with 30 mL of sterile 0.9% Sodium Chloride Injection. Refrigerate. EXP: (24 HR) New Bag/Syringe/Bottle 04/19/2023 2:50 PM EST 300 mg 500 mL/hr Reason for Referral Specialty Diagnoses / Procedures Referred By Contac t Referred To Contact Nephrology Diagnoses Hypertension, essential Resistant hypertension Procedures CONSULT TO NEPHROLOGY OFFICE/OUTPATIENT NEW HIGH MDM 60-74 MINUTES Farida Sloan APRN.[employer] [address] [place] [address] Referral ID Status Reason Start Date Expiration Date Visits Requested Visits Authorized [id number] Pending Review PCP Requested Referral 10/06/2021 10/06/2022 1 1 Specialty Diagnoses / Procedures Referred By Contac t Referred To Contact [facility] Diagnoses Crohn's disease of small intestine without complication (HCC) Procedures MRI PEL ENTEROG WO/W IVCON MRI PELVIS W/O & W/CONTRAST MATERIAL Geraldine Figueroa PA-C [address] [place] [address] Mr Imaging Referral ID Status Reason Start Date Expiration Date Visits Requested Visits Authorized [id number] Pending Review Auto-Generat ed Referral 11/21/2021 12/21/2022 1 1 Specialty Diagnoses / Procedures Referred By Contac t Referred To Contact [facility] Diagnoses Crohn's disease of small intestine without complication (HCC) Procedures MRI ABD ENTEROG WO/W IVCON MRI ABDOMEN W/O & W/CONTRAST MATERIAL MRI PELVIS W/O & W/CONTRAST MATERIAL Geraldine Figueroa PA-C [address] [place] [address] Mr Imaging Referral ID Status Reason Start Date Expiration Date Visits Requested Visits Authorized [id number] Pending Review Auto-Generat ed Referral 11/21/2021 12/21/2022 1 1 Specialty Diagnoses / Procedures Referred By Contac t Referred To Contact Diagnoses Type 2 diabetes mellitus without complication, without long-term current use of insulin (HCC) Farida Sloan, BHARATHI.[employer] [address] [place] [address] Referral ID Status Reason Start Date Expiration Date V isits Requested Visits Authorized [id number] Pending Review 1 1 Referral ID Status Reason Start Date Expiration Date Visits Re quested Visits Authorized [id number] Denied 1 1 Additional Source Comments (unrecognized sect ion and content) No Status Records FoundNo Status Records FoundNo Status Records FoundNo Status Records FoundNo Status Records Found INFORMATION SOURCE (unrecogn ized section and content) DATE CREATED AUTHOR 11/23/2017 [facility] DATE CREATED AUTHOR AUTHOR'S ORGANIZ ATION 02/07/2019 [facility] DATE CREATED AUTHOR AUTHOR'S ORGANIZ ATION 01/21/2021 [facility] DATE CREATED AUTHOR AUTHOR'S ORGANIZ ATION 08/22/2021 [facility] DATE CREATED AUTHOR AUTHOR'S ORGANIZ ATION 12/26/2024 [facility] Source Comments (unrecognize d section and content) In the event this informatio n is protected by the Federal Confidentiality of Alcohol and Drug Abuse Patient Records regulations: The Federal rules restrict any use of the information to criminally investigate or prosecute any alcohol or drug abuse patient.[place] [facility] the event this information is protected by the Federal Confidentiality of Alcohol and Drug Abuse Patient Records regulations: The Federal rules restrict any use of the information to criminally investigate or prosecute any alcohol or drug abuse patient.[facility]In the event this information is protected by the Federal Confidentiality of Alcohol and Drug Abuse Patient Records regulations: The Federal rules restrict any use of the information to criminally investigate or prosecute any alcohol or drug abuse patient.[facility] HospitalIn the event this information is protected by the Federal Confidentiality of Alcohol and Drug Abuse Patient Records regulations: The Federal rules restrict any use of the information to criminally investigate or prosecute any alcohol or drug abuse patient.[facility] HospitalIn the event this information is protected by the Federal Confidentiality of Alcohol and Drug Abuse Patient Records regulations: The Federal rules restrict any use of the information to criminally investigate or prosecute any alcohol or drug abuse patient.[facility] HospitalIn the event this information is protected by the Federal Confidentiality of Alcohol and Drug Abuse Patient Records regulations: The Federal rules restrict any use of the information to criminally investigate or prosecute any alcohol or drug abuse patient.[facility] HospitalIn the event this information is protected by the Federal Confidentiality of Alcohol and Drug Abuse Patient Records regulations: The Federal rules restrict any use of the information to criminally investigate or prosecute any alcohol or drug abuse patient.[facility] HospitalIn the event this information is protected by the Federal Confidentiality of Alcohol and Drug Abuse Patient Records regulations: The Federal rules restrict any use of the information to criminally investigate or prosecute any alcohol or drug abuse patient.[facility] HospitalIn the event this information is protected by the Federal Confidentiality of Alcohol and Drug Abuse Patient Records regulations: The Federal rules restrict any use of the information to criminally investigate or prosecute any alcohol or drug abuse patient.[facility] HospitalIn the event this information is protected by the Federal Confidentiality of Alcohol and Drug Abuse Patient Records regulations: The Federal rules restrict any use of the information to criminally investigate or prosecute any alcohol or drug abuse patient.[facility] HospitalIn the event this information is protected by the Federal Confidentiality of Alcohol and Drug Abuse Patient Records regulations: The Federal rules restrict any use of the information to criminally investigate or prosecute any alcohol or drug abuse patient.[facility] HospitalIn the event this information is protected by the Federal Confidentiality of Alcohol and Drug Abuse Patient Records regulations: The Federal rules restrict any use of the information to criminally investigate or prosecute any alcohol or drug abuse patient.[facility] HospitalIn the event this information is protected by the Federal Confidentiality of Alcohol and Drug Abuse Patient Records regulations: The Federal rules restrict any use of the information to criminally investigate or prosecute any alcohol or drug abuse patient.[facility] HospitalIn the event this information is protected by the Federal Confidentiality of Alcohol and Drug Abuse Patient Records regulations: The Federal rules restrict any use of the information to criminally investigate or prosecute any alcohol or drug abuse patient.[facility] the event this information is protected by the Federal Confidentiality of Alcohol and Drug Abuse Patient Records regulations: The Federal rules restrict any use of the information to criminally investigate or prosecute any alcohol or drug abuse patient.[facility] HospitalIn the event this information is protected by the Federal Confidentiality of Alcohol and Drug Abuse Patient Records regulations: The Federal rules restrict any use of the information to criminally investigate or prosecute any alcohol or drug abuse patient.[facility] HospitalIn the event this information is protected by the Federal Confidentiality of Alcohol and Drug Abuse Patient Records regulations: The Federal rules restrict any use of the information to criminally investigate or prosecute any alcohol or drug abuse patient.[facility] HospitalIn the event this information is protected by the Federal Confidentiality of Alcohol and Drug Abuse Patient Records regulations: The Federal rules restrict any use of the information to criminally investigate or prosecute any alcohol or drug abuse patient.[facility] HospitalIn the event this information is protected by the Federal Confidentiality of Alcohol and Drug Abuse Patient Records regulations: The Federal rules restrict any use of the information to criminally investigate or prosecute any alcohol or drug abuse patient.[facility] HospitalIn the event this information is protected by the Federal Confidentiality of Alcohol and Drug Abuse Patient Records regulations: The Federal rules restrict any use of the information to criminally investigate or prosecute any alcohol or drug abuse patient.[facility] HospitalIn the event this information is protected by the Federal Confidentiality of Alcohol and Drug Abuse Patient Records regulations: The Federal rules restrict any use of the information to criminally investigate or prosecute any alcohol or drug abuse patient.[facility] HospitalIn the event this information is protected by the Federal Confidentiality of Alcohol and Drug Abuse Patient Records regulations: The Federal rules restrict any use of the information to criminally investigate or prosecute any alcohol or drug abuse patient.[facility] HospitalIn the event this information is protected by the Federal Confidentiality of Alcohol and Drug Abuse Patient Records regulations: The Federal rules restrict any use of the information to criminally investigate or prosecute any alcohol or drug abuse patient.[facility] HospitalIn the event this information is protected by the Federal Confidentiality of Alcohol and Drug Abuse Patient Records regulations: The Federal rules restrict any use of the information to criminally investigate or prosecute any alcohol or drug abuse patient.[facility] HospitalIn the event this information is protected by the Federal Confidentiality of Alcohol and Drug Abuse Patient Records regulations: The Federal rules restrict any use of the information to criminally investigate or prosecute any alcohol or drug abuse patient.[facility] HospitalIn the event this information is protected by the Federal Confidentiality of Alcohol and Drug Abuse Patient Records regulations: The Federal rules restrict any use of the information to criminally investigate or prosecute any alcohol or drug abuse patient.[facility] HospitalIn the event this information is protected by the Federal Confidentiality of Alcohol and Drug Abuse Patient Records regulations: The Federal rules restrict any use of the information to criminally investigate or prosecute any alcohol or drug abuse patient.[facility] HospitalIn the event this information is protected by the Federal Confidentiality of Alcohol and Drug Abuse Patient Records regulations: The Federal rules restrict any use of the information to criminally investigate or prosecute any alcohol or drug abuse patient.[facility] HospitalIn the event this information is protected by the Federal Confidentiality of Alcohol and Drug Abuse Patient Records regulations: The Federal rules restrict any use of the information to criminally investigate or prosecute any alcohol or drug abuse patient.[facility] HospitalIn the event this information is protected by the Federal Confidentiality of Alcohol and Drug Abuse Patient Records regulations: The Federal rules restrict any use of the information to criminally investigate or prosecute any alcohol or drug abuse patient.[facility] HospitalIn the event this information is protected by the Federal Confidentiality of Alcohol and Drug Abuse Patient Records regulations: The Federal rules restrict any use of the information to criminally investigate or prosecute any alcohol or drug abuse patient.[facility] HospitalIn the event this information is protected by the Federal Confidentiality of Alcohol and Drug Abuse Patient Records regulations: The Federal rules restrict any use of the information to criminally investigate or prosecute any alcohol or drug abuse patient.[facility] HospitalIn the event this information is protected by the Federal Confidentiality of Alcohol and Drug Abuse Patient Records regulations: The Federal rules restrict any use of the information to criminally investigate or prosecute any alcohol or drug abuse patient.[facility] HospitalIn the event this information is protected by the Federal Confidentiality of Alcohol and Drug Abuse Patient Records regulations: The Federal rules restrict any use of the information to criminally investigate or prosecute any alcohol or drug abuse patient.[facility] HospitalIn the event this information is protected by the Federal Confidentiality of Alcohol and Drug Abuse Patient Records regulations: The Federal rules restrict any use of the information to criminally investigate or prosecute any alcohol or drug abuse patient.[facility] HospitalIn the event this information is protected by the Federal Confidentiality of Alcohol and Drug Abuse Patient Records regulations: The Federal rules restrict any use of the information to criminally investigate or prosecute any alcohol or drug abuse patient.[facility] HospitalIn the event this information is protected by the Federal Confidentiality of Alcohol and Drug Abuse Patient Records regulations: The Federal rules restrict any use of the information to criminally investigate or prosecute any alcohol or drug abuse patient.[facility] HospitalIn the event this information is protected by the Federal Confidentiality of Alcohol and Drug Abuse Patient Records regulations: The Federal rules restrict any use of the information to criminally investigate or prosecute any alcohol or drug abuse patient.[facility] HospitalIn the event this information is protected by the Federal Confidentiality of Alcohol and Drug Abuse Patient Records regulations: The Federal rules restrict any use of the information to criminally investigate or prosecute any alcohol or drug abuse patient.[facility] HospitalIn the event this information is protected by the Federal Confidentiality of Alcohol and Drug Abuse Patient Records regulations: The Federal rules restrict any use of the information to criminally investigate or prosecute any alcohol or drug abuse patient.[facility] HospitalIn the event this information is protected by the Federal Confidentiality of Alcohol and Drug Abuse Patient Records regulations: The Federal rules restrict any use of the information to criminally investigate or prosecute any alcohol or drug abuse patient.[facility] HospitalIn the event this information is protected by the Federal Confidentiality of Alcohol and Drug Abuse Patient Records regulations: The Federal rules restrict any use of the information to criminally investigate or prosecute any alcohol or drug abuse patient.[facility] HospitalIn the event this information is protected by the Federal Confidentiality of Alcohol and Drug Abuse Patient Records regulations: The Federal rules restrict any use of the information to criminally investigate or prosecute any alcohol or drug abuse patient.[facility] HospitalIn the event this information is protected by the Federal Confidentiality of Alcohol and Drug Abuse Patient Records regulations: The Federal rules restrict any use of the information to criminally investigate or prosecute any alcohol or drug abuse patient.[facility] HospitalIn the event this information is protected by the Federal Confidentiality of Alcohol and Drug Abuse Patient Records regulations: The Federal rules restrict any use of the information to criminally investigate or prosecute any alcohol or drug abuse patient.[facility] HospitalIn the event this information is protected by the Federal Confidentiality of Alcohol and Drug Abuse Patient Records regulations: The Federal rules restrict any use of the information to criminally investigate or prosecute any alcohol or drug abuse patient.[facility] HospitalIn the event this information is protected by the Federal Confidentiality of Alcohol and Drug Abuse Patient Records regulations: The Federal rules restrict any use of the information to criminally investigate or prosecute any alcohol or drug abuse patient.[facility] HospitalIn the event this information is protected by the Federal Confidentiality of Alcohol and Drug Abuse Patient Records regulations: The Federal rules restrict any use of the information to criminally investigate or prosecute any alcohol or drug abuse patient.[facility] HospitalIn the event this information is protected by the Federal Confidentiality of Alcohol and Drug Abuse Patient Records regulations: The Federal rules restrict any use of the information to criminally investigate or prosecute any alcohol or drug abuse patient.[facility] HospitalIn the event this information is protected by the Federal Confidentiality of Alcohol and Drug Abuse Patient Records regulations: The Federal rules restrict any use of the information to criminally investigate or prosecute any alcohol or drug abuse patient.[facility] HospitalIn the event this information is protected by the Federal Confidentiality of Alcohol and Drug Abuse Patient Records regulations: The Federal rules restrict any use of the information to criminally investigate or prosecute any alcohol or drug abuse patient.[facility] HospitalIn the event this information is protected by the Federal Confidentiality of Alcohol and Drug Abuse Patient Records regulations: The Federal rules restrict any use of the information to criminally investigate or prosecute any alcohol or drug abuse patient.[facility] HospitalIn the event this information is protected by the Federal Confidentiality of Alcohol and Drug Abuse Patient Records regulations: The Federal rules restrict any use of the information to criminally investigate or prosecute any alcohol or drug abuse patient.[facility] HospitalIn the event this information is protected by the Federal Confidentiality of Alcohol and Drug Abuse Patient Records regulations: The Federal rules restrict any use of the information to criminally investigate or prosecute any alcohol or drug abuse patient.[facility] HospitalIn the event this information is protected by the Federal Confidentiality of Alcohol and Drug Abuse Patient Records regulations: The Federal rules restrict any use of the information to criminally investigate or prosecute any alcohol or drug abuse patient.[facility] HospitalIn the event this information is protected by the Federal Confidentiality of Alcohol and Drug Abuse Patient Records regulations: The Federal rules restrict any use of the information to criminally investigate or prosecute any alcohol or drug abuse patient.[facility] HospitalIn the event this information is protected by the Federal Confidentiality of Alcohol and Drug Abuse Patient Records regulations: The Federal rules restrict any use of the information to criminally investigate or prosecute any alcohol or drug abuse patient.[facility] HospitalIn the event this information is protected by the Federal Confidentiality of Alcohol and Drug Abuse Patient Records regulations: The Federal rules restrict any use of the information to criminally investigate or prosecute any alcohol or drug abuse patient.[facility] HospitalIn the event this information is protected by the Federal Confidentiality of Alcohol and Drug Abuse Patient Records regulations: The Federal rules restrict any use of the information to criminally investigate or prosecute any alcohol or drug abuse patient.[facility] HospitalIn the event this information is protected by the Federal Confidentiality of Alcohol and Drug Abuse Patient Records regulations: The Federal rules restrict any use of the information to criminally investigate or prosecute any alcohol or drug abuse patient.[facility] HospitalIn the event this information is protected by the Federal Confidentiality of Alcohol and Drug Abuse Patient Records regulations: The Federal rules restrict any use of the information to criminally investigate or prosecute any alcohol or drug abuse patient.[facility] HospitalIn the event this information is protected by the Federal Confidentiality of Alcohol and Drug Abuse Patient Records regulations: The Federal rules restrict any use of the information to criminally investigate or prosecute any alcohol or drug abuse patient.[facility] HospitalIn the event this information is protected by the Federal Confidentiality of Alcohol and Drug Abuse Patient Records regulations: The Federal rules restrict any use of the information to criminally investigate or prosecute any alcohol or drug abuse patient.[facility] HospitalIn the event this information is protected by the Federal Confidentiality of Alcohol and Drug Abuse Patient Records regulations: The Federal rules restrict any use of the information to criminally investigate or prosecute any alcohol or drug abuse patient.[facility]In the event this information is protected by the Federal Confidentiality of Alcohol and Drug Abuse Patient Records regulations: The Federal rules restrict any use of the information to criminally investigate or prosecute any alcohol or drug abuse patient.[facility]In the event this information is protected by the Federal Confidentiality of Alcohol and Drug Abuse Patient Records regulations: The Federal rules restrict any use of the information to criminally investigate or prosecute any alcohol or drug abuse patient.[facility]In the event this information is protected by the Federal Confidentiality of Alcohol and Drug Abuse Patient Records regulations: The Federal rules restrict any use of the information to criminally investigate or prosecute any alcohol or drug abuse patient.[facility] HospitalIn the event this information is protected by the Federal Confidentiality of Alcohol and Drug Abuse Patient Records regulations: The Federal rules restrict any use of the information to criminally investigate or prosecute any alcohol or drug abuse patient.[facility]In the event this information is protected by the Federal Confidentiality of Alcohol and Drug Abuse Patient Records regulations: The Federal rules restrict any use of the information to criminally investigate or prosecute any alcohol or drug abuse patient.[facility] HospitalIn the event this information is protected by the Federal Confidentiality of Alcohol and Drug Abuse Patient Records regulations: The Federal rules restrict any use of the information to criminally investigate or prosecute any alcohol or drug abuse patient.[facility]In the event this information is protected by the Federal Confidentiality of Alcohol and Drug Abuse Patient Records regulations: The Federal rules restrict any use of the information to criminally investigate or prosecute any alcohol or drug abuse patient.[facility] HospitalIn the event this information is protected by the Federal Confidentiality of Alcohol and Drug Abuse Patient Records regulations: The Federal rules restrict any use of the information to criminally investigate or prosecute any alcohol or drug abuse patient.[facility]In the event this information is protected by the Federal Confidentiality of Alcohol and Drug Abuse Patient Records regulations: The Federal rules restrict any use of the information to criminally investigate or prosecute any alcohol or drug abuse patient.[facility]In the event this information is protected by the Federal Confidentiality of Alcohol and Drug Abuse Patient Records regulations: The Federal rules restrict any use of the information to criminally investigate or prosecute any alcohol or drug abuse patient.[facility]In the event this information is protected by the Federal Confidentiality of Alcohol and Drug Abuse Patient Records regulations: The Federal rules restrict any use of the information to criminally investigate or prosecute any alcohol or drug abuse patient.[facility] HospitalIn the event this information is protected by the Federal Confidentiality of Alcohol and Drug Abuse Patient Records regulations: The Federal rules restrict any use of the information to criminally investigate or prosecute any alcohol or drug abuse patient.[facility] HospitalIn the event this information is protected by the Federal Confidentiality of Alcohol and Drug Abuse Patient Records regulations: The Federal rules restrict any use of the information to criminally investigate or prosecute any alcohol or drug abuse patient.[facility] HospitalIn the event this information is protected by the Federal Confidentiality of Alcohol and Drug Abuse Patient Records regulations: The Federal rules restrict any use of the information to criminally investigate or prosecute any alcohol or drug abuse patient.[facility]In the event this information is protected by the Federal Confidentiality of Alcohol and Drug Abuse Patient Records regulations: The Federal rules restrict any use of the information to criminally investigate or prosecute any alcohol or drug abuse patient.[facility] HospitalIn the event this information is protected by the Federal Confidentiality of Alcohol and Drug Abuse Patient Records regulations: The Federal rules restrict any use of the information to criminally investigate or prosecute any alcohol or drug abuse patient.[facility]In the event this information is protected by the Federal Confidentiality of Alcohol and Drug Abuse Patient Records regulations: The Federal rules restrict any use of the information to criminally investigate or prosecute any alcohol or drug abuse patient.[facility] HospitalIn the event this information is protected by the Federal Confidentiality of Alcohol and Drug Abuse Patient Records regulations: The Federal rules restrict any use of the information to criminally investigate or prosecute any alcohol or drug abuse patient.[facility] Reason for Visit (unrecogniz ed section and content) Reason Comments Immunotherapy Specialty Diagnoses / Procedures Referred By Lj t Referred To Contact Diagnoses Crohn's disease of small intestine with complication (HCC) Procedures INJECTION, VEDOLIZUMAB Geraldine Figueroa PA-C [id number] [place] [address] [facility] [address] [place] [address] Referral ID Status Reason Start Date Expiration Date V isits Requested Visits Authorized [id number] Authorized 11/22/2021 11/22/2022 99 99 Reason Comments Refill Request Reason Comments Recheck 1 month follow up Reason Comments Non-Chemotherapy Treatment Specialty Diagnoses / Procedures Referred By Contac t Referred To Contact Diagnoses Crohn's disease of small intestine with complication (HCC) Procedures MALLORIE, VEDOLIZUMAB kM Sanchez MD [address] [place] [address] [facility] [address] [place] [address] Referral ID Status Reason Start Date Expiration Date V isits Requested Visits Authorized Authorized 02/10/2021 11/21/2021 99 99 Reason Comments Follow Up Reason Onset Date Comments Refill Request 10/22/2021 Reason Comments Crohns Referral ID Status Reason Start Date Expiration Date Visits Re quested Visits Authorized Closed 02/10/2021 11/22/2022 99 99 Reason Comments Infusion Reason Onset Date Comments Refill Request 04/23/2022 Reason Onset Date Comments Refill Request 07/05/2022 Reason Onset Date Comments Refill Request 10/06/2022 Reason Comments Insurance Authorization Prior Auth Delay ed: Additional Info Needed Reason Onset Date Comments Hypertension 12/08/2022 Reason Comments Orders Reason Onset Date Comments Refill Request 12/11/2022 Reason Comments Results Referral ID Status Reason Start Date Expiration Date V isits Requested Visits Authorized [id number] Authorized 11/22/2021 12/07/2023 99 99 Reason Onset Date Comments Refill Request 01/13/2023 Reason Comments Recheck 6 week follow up Reason Comments Appointment Reason Comments Insurance Authorization Reason Comments Results Reason Comments Follow Up Reason Onset Date Comments Refill Request 04/12/2023 Specialty Diagnoses / Procedures Referred By Contac t Referred To Contact Diagnoses Crohn's disease of small intestine with complication (HCC) Procedures INJECTION, VEDOLIZUMAB Geraldine Crowe PA-C [address] [place] [address] [facility] [address] [place] [address] Reason Onset Date Comments Refill Request 07/12/2023 Specialty Diagnoses / Procedures Referred By Lj lucas Referred To Contact Diagnoses Crohn's disease of both small and large intestine with other complication (HCC) Procedures INJECTION, VEDOLIZUMAB Geraldine Crowe PA-C [address] [place] [address] [facility] [address] [place] [address] Referral ID Status Reason Start Date Expiration Date V isits Requested Visits Authorized [id number] Authorized 11/22/2021 05/31/2024 17 17 Reason Comments Recheck 6 month follow up Reason Onset Date Comments Refill Request 01/09/2024 Reason Comments Insurance Authorization [employer] Specialty Diagnoses / Procedures Referred By Lj lucas Referred To Contact Diagnoses Crohn's disease of both small and large intestine with other complication (HCC) Procedures INJECTION, VEDOLIZUMAB Geraldine Crowe PA-C [address] [place] [address] [facility] [address] [place] [address] Reason Onset Date Comments Refill Request 03/14/2024 Reason Onset Date Comments Refill Request 03/27/2024 Reason Comments Crohns Specialty Diagnoses / Procedures Referred By Lj lucas Referred To Contact Diagnoses Crohn's disease of both small and large intestine with other complication (HCC) Procedures INJECTION, VEDOLIZUMAB Geraldine Crowe PA-C [address] [place] [address] Phone: tel: fax: Hematology/Oncology [address] [place] [address] Phone: tel: fax: Referral ID Status Reason Start Date Expiration Date V isits Requested Visits Authorized [id number] Authorized 11/22/2021 06/16/2025 24 24 Reason Comments Minor Injuries (Sprains, Str ains, Minor Joint Pain) Foot and rib injury - Entered by patient Pain (foot) Injury from fall las t evening, right foot and right rib area Reason Comments New INJURED 07/27/2024, patient fell Specialty Diagnoses / Procedures Referred By Contac t Referred To Contact Orthopedics Diagnoses Closed nondisplaced fracture of fourth metatarsal bone of right foot, initial encounter Closed nondisplaced fracture of fifth metatarsal bone of right foot, initial encounter Procedures CONSULT PANEL TO ORTHOPAEDICS OFFICE/OUTPATIENT [facility] 60 MINUTES Lucho Castillo, SAMANTHA [address] [place] [address] Phone: tel: fax: Referral ID Status Reason Start Date Expiration Date V isits Requested Visits Authorized [id number] Closed PCP Requested Referral 07/28/2024 07/28/2025 1 1 Reason Onset Date Comments Refill Request 08/15/2024 Reason Comments 6 Month Exam Care Teams (unrecognized sec tion and content) Blankbook Stitching Machine Operator Relationship Specialty Start Date End Date Edwin Kumar, DO [address] [place] [address] PCP - General Family Practice 09/18/20 Blankbook Stitching Machine Operator Relationship Specialty Start Date End Date Edwin Kumar DO [address] [place] [address] PCP - General Family Practice 09/18/20 Blankbook Stitching Machine Operator Relationship Specialty Start Date End Date Edwin Kumar DO [address] [place] [address] PCP - General Family Practice 09/18/20 Blankbook Stitching Machine Operator Relationship Specialty Start Date End Date Edwin Kumar DO [address] [place] [address] PCP - General Family Practice 09/18/20 Blankbook Stitching Machine Operator Relationship Specialty Start Date End Date Edwin Kumar DO [address] [place] [address] PCP - General Family Practice 09/18/20 Blankbook Stitching Machine Operator Relationship Specialty Start Date End Date Edwin Kumar, DO [address] [place] [address] PCP - General Family Practice 09/18/20 Blankbook Stitching Machine Operator Relationship Specialty Start Date End Date Edwin Kumar, DO [address] [place] [address] PCP - General Family Practice 09/18/20 Blankbook Stitching Machine Operator Relationship Specialty Start Date End Date Edwin Kumar, DO [address] [place] [address] PCP - General Family Medicine 09/18/20 Blankbook Stitching Machine Operator Relationship Specialty Start Date End Date Edwin Kumar, DO [address] [place] [address] PCP - General Family Medicine 09/18/20 Blankbook Stitching Machine Operator Relationship Specialty Start Date End Date Edwin Kumar, DO [address] [place] [address] PCP - General Family Medicine 09/18/20 Blankbook Stitching Machine Operator Relationship Specialty Start Date End Date Edwin Kumar, DO [address] [place] [address] PCP - General Family Medicine 09/18/20 Blankbook Stitching Machine Operator Relationship Specialty Start Date End Date Edwin Kumar, DO [address] [place] [address] PCP - General Family Medicine 09/18/20 Blankbook Stitching Machine Operator Relationship Specialty Start Date End Date Edwin Kumar, DO [address] [place] [address] PCP - General Family Medicine 09/18/20 Blankbook Stitching Machine Operator Relationship Specialty Start Date End Date Edwin Kumar DO [address] [place] [address] PCP - General Family Medicine 09/18/20 Blankbook Stitching Machine Operator Relationship Specialty Start Date End Date Edwin Kumar DO [address] [place] [address] PCP - General Family Medicine 09/18/20 Blankbook Stitching Machine Operator Relationship Specialty Start Date End Date Edwin Kumar DO [address] [place] [address] PCP - General Family Medicine 09/18/20 Blankbook Stitching Machine Operator Relationship Specialty Start Date End Date Edwin Kumar DO [address] [place] [address] PCP - General Family Medicine 09/18/20 Blankbook Stitching Machine Operator Relationship Specialty Start Date End Date Edwin Kumar DO [address] [place] [address] PCP - General Family Medicine 09/18/20 Blankbook Stitching Machine Operator Relationship Specialty Start Date End Date Edwin Kumar DO [address] [place] [address] PCP - General Family Medicine 09/18/20 Blankbook Stitching Machine Operator Relationship Specialty Start Date End Date Edwin Kumar DO [address] [place] [address] PCP - General Family Medicine 09/18/20 Blankbook Stitching Machine Operator Relationship Specialty Start Date End Date Edwin Kumar DO [address] [place] [address] PCP - General Family Medicine 09/18/20 Blankbook Stitching Machine Operator Relationship Specialty Start Date End Date Edwin Kumar DO [address] [place] [address] PCP - General Family Medicine 09/18/20 Blankbook Stitching Machine Operator Relationship Specialty Start Date End Date Edwin Kumar DO [address] [place] [address] PCP - General Family Medicine 09/18/20 Blankbook Stitching Machine Operator Relationship Specialty Start Date End Date Edwin Kumar, [address] [place] [address] PCP - General Family Medicine 09/18/20 Blankbook Stitching Machine Operator Relationship Specialty Start Date End Date Edwin Kumar DO [address] [place] [address] PCP - General Family Medicine 09/18/20 Blankbook Stitching Machine Operator Relationship Specialty Start Date End Date Edwin Kumar DO [address] [place] [address] PCP - General Family Medicine 09/18/20 Blankbook Stitching Machine Operator Relationship Specialty Start Date End Date Edwin Kumar DO [address] [place] [address] PCP - General Family Medicine 09/18/20 Blankbook Stitching Machine Operator Relationship Specialty Start Date End Date Edwin Kumar DO [address] [place] [address] PCP - General Family Medicine 09/18/20 Blankbook Stitching Machine Operator Relationship Specialty Start Date End Date Edwin Kumar, [address] [place] [address] PCP - General Family Medicine 09/18/20 Blankbook Stitching Machine Operator Relationship Specialty Start Date End Date Edwin Kumar DO [address] [place] [address] PCP - General Family Medicine 09/18/20 Blankbook Stitching Machine Operator Relationship Specialty Start Date End Date Edwin Kumar DO [address] [place] [address] PCP - General Family Medicine 09/18/20 Blankbook Stitching Machine Operator Relationship Specialty Start Date End Date Edwin Kumar DO [address] [place] [address] PCP - General Family Medicine 09/18/20 Blankbook Stitching Machine Operator Relationship Specialty Start Date End Date Edwin Kumar DO [address] [place] [address] PCP - General Family Medicine 09/18/20 Blankbook Stitching Machine Operator Relationship Specialty Start Date End Date Edwin Kumar DO [address] [place] [address] PCP - General Family Medicine 09/18/20 Blankbook Stitching Machine Operator Relationship Specialty Start Date End Date Edwin Kumar DO [address] [place] [address] PCP - General Family Medicine 09/18/20 Blankbook Stitching Machine Operator Relationship Specialty Start Date End Date Edwin Kumar DO [address] [place] [address] PCP - General Family Medicine 09/18/20 Blankbook Stitching Machine Operator Relationship Specialty Start Date End Date Edwin Kumar DO [address] [place] [address] PCP - General Family Medicine 09/18/20 Blankbook Stitching Machine Operator Relationship Specialty Start Date End Date Edwin Kumar DO [address] [place] [address] PCP - General Family Medicine 09/18/20 Blankbook Stitching Machine Operator Relationship Specialty Start Date End Date Edwin Kumar DO [address] [place] [address] PCP - General Family Medicine 09/18/20 Blankbook Stitching Machine Operator Relationship Specialty Start Date End Date Edwin Kumar DO [address] [place] [address] PCP - General Family Medicine 09/18/20 Cari Gonzalez, SAFETY ENGINEER [employer] P[employer]ITTER [address] [place] [address] Agriculture Instructor Family Medicine 05/07/24 Deneen Stover, SAFETY ENGINEER [employer]ORS PREFITTER [address] [place] [address] Agriculture Instructor Family Medicine 05/07/24 Blankbook Stitching Machine Operator Relationship Specialty Start Date End Date Edwin Kumar DO [address] [place] [address] PCP - General Family Medicine 09/18/20 Cari Gonzalez, SAFETY ENGINEER [employer]DOORS PREFITTER [address] [place] [address] Agriculture Instructor Family Medicine 05/07/24 Deneen Stover, SAFETY ENGINEER [employer]DOORS PREFITTER [address] [place] [address] Agriculture Instructor Family Medicine 05/07/24 Blankbook Stitching Machine Operator Relationship Specialty Start Date End Date Edwin Kumar DO [address] [place] [address] PCP - General Family Medicine 09/18/20 Cari Gonzalez, SAFETY ENGINEER [employer]DOORS PREFITTER [address] [facility] [place] [address] [facility] 05/[facility]/24 [facility] Center[facility], SAFETY ENGINEER [employer]DOORS PREFITTER [address] [place] [address] [facility] 05/07/24 Blankbook Stitching Machine Operator Relationship Specialty Start Date End Date Edwin Kumar DO [address] [place] [address] PCP - General Family Medicine 09/18/20 Cari Gonzalez, SAFETY ENGINEER [employer]DOORS PREFITTER [address] [place] [address] Agriculture [facility]St[facility] 05/07/24 DeandreDeneen, SAFETY ENGINEER [employer]DOORS PREFITTER [address] [place] [address] [facility] 05/07/24 Blankbook Stitching Machine Operator Relationship Specialty Start Date End Date Edwin Kumar DO [address] [place] [address] PCP - General Family Medicine 09/18/20 Cari Gonzalez, SAFETY ENGINEER [employer]DOORS PREFITTER [address] [place] [address] [facility] 05/07/24 Deneen Stover, SAFETY ENGINEER [employer]DOORS PREFITTER [address] [place] [address] [facility] 05/07/24 Blankbook Stitching Machine Operator Relationship Specialty Start Date End Date Edwin Kumar DO [address] [place] [address] PCP - General Family Medicine 09/18/20 Cari Gonzalez, SAFETY ENGINEER [employer]DOORS PREFITTER [address] [place] [address] [facility] 05/07/24 Deneen Stover, SAFETY ENGINEER [employer]DOORS PREFITTER [address] [place] [address] [facility] 05/07/24 Blankbook Stitching Machine Operator Relationship Specialty Start Date End Date Edwin Kumar DO [address] [place] [address] PCP - General Family Medicine 09/18/20 Cari Gonzalez, SAFETY ENGINEER [employer]DOORS PREFITTER [address] [facility] [place] [address] Agriculture In[facility]Broad[facility] Medicine 05/07/24 Deneen Stover, SAFETY ENGINEER [employer]DOORS PREFITTER [address] [place] [address] Agriculture [facility]St[facility] 05/07/24 Blankbook Stitching Machine Operator Relationship Specialty Start Date End Date Edwin Kumar DO [address] [facility] [place] [address] PCP - General Family Medicine 09/18/20 Cari Gonzalez, SAFETY ENGINEER [employer]DOORS PREFITTER [address] [place] [address] Agriculture Instructor Family Medicine 05/07/24 Deneen Stover, SAFETY ENGINEER [employer]DOORS PREFITTER [address] [place] [address] Agriculture Instructor Family Medicine 05/07/24 Blankbook Stitching Machine Operator Relationship Specialty Start Date End Date Edwin Kumar DO [address] [place] [address] PCP - General Family Medicine 09/18/20 Cari Gonzalez, SAFETY ENGINEER [employer]DOORS PREFITTER [address] [place] [address] Agriculture Instructor Family Medicine 05/07/24 Deneen Stover, SAFETY ENGINEER [employer]ORS PREFITTER [address] [place] [address] Agriculture Instructor [facility] 05/07/24 Blankbook Stitching Machine Operator Relationship Specialty Start Date End Date Edwin Kumar DO [address] [place] [address] PCP - General Family Medicine 09/18/20 Cari Gonzalez, SAFETY ENGINEER [employer]DOORS PREFITTER [address] [place] [address] Agriculture Instructor Family Medicine 05/07/24 Deneen Stover, SAFETY ENGINEER [employer]ORS PREFITTER [address] [place] [address] Agriculture [facility] 05/07/24 Blankbook Stitching Machine Operator Relationship Specialty Start Date End Date Edwin Kumar DO [address] [place] [address] PCP - General Family Medicine 09/18/20 Deneen Stover, SAFETY ENGINEER [employer]DOORS PREFITTER [address] [place] [address] Agriculture Instructor Family [facility] 05/07/24 Blankbook Stitching Machine Operator Relationship Specialty Start Date End Date Edwin Kumar DO [address] [facility] [address] PCP - General Family Medicine 09/18/20 Deneen Stover, SAFETY ENGINEER [employer]DOORS PREFITTER [address] [place] [address] Agriculture [facility]St[facility] 05/07/24 Blankbook Stitching Machine Operator Relationship Specialty Start Date End Date Edwin Kumar DO [address] [place] [address] PCP - General Family Medicine 09/18/20 Deneen Stover, SAFETY ENGINEER [employer]DOORS PREFITTER [address] [place] [address] Agriculture In[facility]St[facility] 05/07/24 Blankbook Stitching Machine Operator Relationship Specialty Start Date End Date Edwin Kumar DO [address] [place] [address] PCP - General Family Medicine 09/18/20 Deneen Stover, SAFETY ENGINEER [employer]ORS PREFITTER [address] [place] [address] Agriculture InstructorSt[facility] 05/07/24 Blankbook Stitching Machine Operator Relationship Specialty Start Date End Date Edwin Kumar DO [address] [place] [address] PCP - General Family Medicine 09/18/20 DeandreDeneen, SAFETY ENGINEER [employer]ORS PREFITTER [address] [place], [place] [address] [facility] 05/07/24 Blankbook Stitching Machine Operator Relationship Specialty Start Date End Date Edwin Kumar DO [address] [place], [place] [address] [phone] PCP - General Family Medicine 09/18/20 DeandreDeneen, SAFETY ENGINEER [employer]DOORS PREFITTER [address] [place], [place] [address] [facility] 05/07/24 Lizzeth Coto, SAFETY ENGINEER [employer]ORS PREFITTER [address] [place], [place] [address] [facility] 11/13/24 Blankbook Stitching Machine Operator Relationship Specialty Start Date End Date Edwin Kumar DO [address] [place], [place] [address] PCP - General [facility] Medicine 09/18/20 DeandreDeneen, SAFETY ENGINEER [employer]DOORS PREFITTER [address] [place] [address] [facility] 05/07/24 Lizzeth Coto, SAFETY ENGINEER [employer]DOORS PREFITTER [address] [place], [place] [address] [phone] [facility] 11/13/24 Inactive Administered Medications - up to 3 most recent administrations Administered Medications (un recognized section and content) Medication Order MAR Action Action Date Dose Rate Site diphenhydrAMINE 12.5-50 mg injection (BENADRYL) 12.5-50 mg, INTRAVENOUS, DIRECTED, Starting on Wed07/19/23 at 0900, Until Wed07/19/23 at 1259, DOSING DIRECTED BY PHYSICIAN FOR PROCEDURAL SEDATION ONLY, Intraprocedure Given 07/19/2023 8:38 AM EST 50 mg fentaNYL 50 mcg/mL 25-100 mcg injection (SUBLIMAZE) 25-100 mcg, INTRAVENOUS, DIRECTED, Starting on Wed07/19/23 at 0900, Until Wed07/19/23 at 1259, DOSING DIRECTED BY PHYSICIAN FOR PROCEDURAL SEDATION ONLY, Intraprocedure Given 07/19/2023 8:42 AM EST 50 mcg Given 07/19/2023 8:36 AM EST 50 mcg lactated ringers iv infusion 30 mL/hr, INTRAVENOUS, CONTINUOUS, Starting on Wed07/19/23 at 0800, Until Wed07/19/23 at 0909, Preprocedure New Bag/Syringe/Bottle 07/19/2023 8:14 AM EST 30 mL/hr 30 mL/hr Wrist, Right midazolam (PF) 1-5 mg injection (VERSED) 1-5 mg, INTRAVENOUS, DIRECTED, Starting on Wed07/19/23 at 0900, Until Wed07/19/23 at 1259, DOSING DIRECTED BY PHYSICIAN FOR PROCEDURAL SEDATION ONLY, Intraprocedure Given 07/19/2023 8:44 AM EST 2 mg Given 07/19/2023 8:40 AM EST 2 mg Given 07/19/2023 8:36 AM EST 3 mg Inactive Administered Medications - up to 3 most recent administrations Medication Order MAR Action Action Date Dose Rate Site vedolizumab 300 mg in NaCl 0.9% 250 mL (ENTYVIO) 300 mg, INTRAVENOUS, Administer over 30 Minutes, ONCE, 1 dose, On Wed08/09/23 at 1400, Approx Total Volume: 280 mL After the infusion is complete flush with 30 mL of sterile 0.9% Sodium Chloride Injection. Refrigerate. EXP: (24 HR) New Bag/Syringe/Bottle 08/09/2023 2:08 PM EDT 300 mg FOR RECORDS PERTAINING TO PATIENTS WHO ARE OR HAVE BEEN ENROLLED IN A CHEMICAL DEPENDENCY/SUBSTANCEABUSE PROGRAM, SOME INFORMATION MAY BE OMITTED. This clinical summary was aggregated from multiple sources. Caution should be exercised in using it in the provision of clinical care. This summary normalizes information from multiple sources, and as a consequence, information in this document may materially change the coding, format and clinical context of patient data. In addition, data may be omitted in some cases. CLINICAL DECISIONS SHOULD BE BASED ON THE PRIMARY CLINICAL RECORDS. [facility] [employer] [facility]. provides no warranty or guarantee of the accuracy or completeness of information in this document.
[2025-01-07 07:57] LABS: Urine Bilirubin Dipstick 3 mg/dL (Negative)
[2025-01-07 08:00] LABS: Calcium Oxalate Crystals Ur 1+ /hpf (<or=2+); Mucous, Urine 1+ /hpf (<or=2+); Red Blood Cells-Urine 0-5 SEEN /hpf (0-5)
[2025-01-07 08:05] LABS: Anion Gap 15 (5-15); BUN 30 mg/dL (4-19); BUN/Creat Ratio 29.4 RATIO (10-20); Calcium,Total 9.3 mg/dL (7.6-11.0); Carbon Dioxide 18.9 mmol/L (21.0-32.0); Chloride 106 mmol/L (98-108); Estimated Creatinine Clearance 105.45 ml/min (50-250); Glucose 161 mg/dL (70-99); Potassium 3.9 mmol/L (3.3-5.1)
[2025-01-07 09:20] VITALS: BP 145/99; PULSE 81; RESP 16; O2SAT 96
[2025-01-07 09:37] VITALS: BP 145/99; PULSE 81; RESP 16; TEMP 36.8; O2SAT 96
== END 2025-01-07 09:38 | disposition home or self-care (01) ==
PROVIDERS: Emergency Provider Emergency Medicine; PCP Student in an Organized Health Care Education/Training Program; Visit Provider Emergency Medicine
DX: S22.080A Wedge compression fracture of T11-T12 vertebra, initial encounter for closed fracture (principal); K50.90 Crohn's disease, unspecified, without complications; D64.9 Anemia, unspecified; X58.XXXA Exposure to other specified factors, initial encounter
CPT/HCPCS: 74176; 80048; 81001; 85025; 96374; 96375; 99283; A4216; J2405

== ENCOUNTER → 2025-01-17 | Outpatient (CLI) | payer OTHER, SELFPAY ==
--- NOTE | 2025-01-17 09:30 | BON_PTH ---
PATIENT: ANNABELLA ELLIOTT [facility] U#:[id number] AGE/SX: 44/M ROOM: RE01/17/[address]: Dr. Barry Hinson MD : 1980 BED: DIS: 01/17/2025 SPEC #: [id number] RECD: 01/17/25 15:52 STATUS: CHANDU REHaris #: [id number] LYNN: 01/17/25 09:[address]: Barry Hinson DEPT: SURGICAL PATHOLOGY RECD BY: Jose Marx ENTERED: 01/18/25 09:57 SP TYPE: Bone OTHR DR: Dr. Edwin Kumar, DO Tissues: A - Vertebra, NOS Procedures: Surgery Specimen Level IV HEADER OPERATION: Kyphoplasty at T12 under fluoroscopy and biopsy of T12 PRE-OP DIAGNOSIS: Wedge compression fracture of unspecified thoracic vertebrae, initial encounter for closed fracture TISSUE SUBMITTED: A- Vertebrae - T12 biopsy MICROSCOPIC DIAGNOSIS A. Vertebrae, T12, biopsy: * Organizing blood clot MICROSCOPIC DESCRIPTION Slides are reviewed. GROSS DESCRIPTION A. Received in formalin labeled with the patient's name and date of . Designated as biopsy T12 is a 0.5 x 0.4 x <0.1 cm aggregate of dark red tissue, suspicious for blood clot. Entirely submitted in 1 cassette. The entirety of the specimen may not survive processing. MA 01/18/2025 CPT:23392
== END | disposition home or self-care (01) ==
LOC: LABSPEC 15:32
PROVIDERS: PCP Student in an Organized Health Care Education/Training Program; Referring Provider Anesthesiology Pain Medicine; Visit Provider Anesthesiology Pain Medicine
DX: S22.080A Wedge compression fracture of T11-T12 vertebra, initial encounter for closed fracture (principal); X58.XXXA Exposure to other specified factors, initial encounter
CPT/HCPCS: 88305

== ENCOUNTER → 2025-02-28 | Outpatient (CLI) | payer OTHER, SELFPAY ==
--- NOTE | 2025-02-28 07:30 | BONBX_PTH ---
PATIENT: ANNABELL[facility]LLIOTT [facility] U[facility][id number] AGE/SX: 44/M ROOM: RE02/28/[address]: Dr. Barry Hinson MD : 1980 BED: DIS: 02/28/2025 SPEC #: [id number] RECD: 02/28/25 15:04 STATUS: CHANDU REQ #: [id number] LYNN: 02/28/25 07:[address]: Barry Hinson DEPT: SURGICAL PATHOLOGY RECD BY: Jose Marx ENTERED: 03/01/25 08:43 SP TYPE: Bone OTHR DR: Dr. Edwin Kumar, DO Tissues: A - Vertebra, NOS Procedures: Decalcification bone/plaque Surgery Specimen Level V HEADER OPERATION: Kyphoplasty at L3 under fluoroscopy of biopsy of L3 PRE-OP DIAGNOSIS: Other osteoporosis with current pathological fracture, unspecified site, initial encounter for fracture TISSUE SUBMITTED: A- Biopsy of L3 MICROSCOPIC DIAGNOSIS A. 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 * Scant trabecular bone and cartilage. MICROSCOPIC DESCRIPTION Slides are reviewed. GROSS DESCRIPTION A. Received in formalin labeled with the patient's name and date of . Designated as biopsy L3 is a is a 2.5 x 1.3 x 0.2 cm aggregate of dark red clotted blood and flecks of apparent bone. Entirely submitted in 1 cassette, following decalcification. AR 02/28/2025PT:[id number]
== END | disposition home or self-care (01) ==
PROVIDERS: PCP Student in an Organized Health Care Education/Training Program; Referring Provider Anesthesiology Pain Medicine; Visit Provider Anesthesiology Pain Medicine
DX: M80.80XA Other osteoporosis with current pathological fracture, unspecified site, initial encounter for fracture (principal)
CPT/HCPCS: 88307; 88311

== ENCOUNTER → 2025-03-14 | Outpatient (CLI) | payer OTHER, SELFPAY ==
--- NOTE | 2025-03-14 10:45 | CT_ITS ---
PROCEDURE: SPINE LUMBAR WITHOUT CONTRAST 03/14/2025 REASON FOR EXAM: S/P KYPHOPLASTY TECHNIQUE: Procedure Code: CTSPL Modality: CT Procedure: SPINE LUMBAR WITHOUT CONTRAST Coronal and Sagittal reconstruction series were provided. One or more dose reduction techniques were used (e.g., Automated exposure control, adjustment of the mA and/or kV according to patient size, use of iterative reconstruction technique COMPARISON: None RADIATION DOSE SUMMARY: CTDlvol: 35.88 mGy DLP: 1320.84 mGycm FINDINGS: Vertebrae: There is evidence of prior vertebroplasty of the T12 and L3 vertebrae. At least 50% loss of height of the T12 vertebrae. Alignment: Normal alignment. L1-2: Mild degree of disc space narrowing. There is a proximally 50% loss of height of the superior endplate of the L2 vertebrae. L2-3: Status post vertebroplasty of the L3 vertebrae. Minimal loss of height of the superior endplate of the L3 vertebrae. Mild degree of posterior leak of the cement material causing minimal deformity of the anterior thecal sac. No significant stenosis seen. L3-4: 60-70% loss of height of the L4 vertebrae. No evidence of spinal stenosis. L4-5: 60-70% loss of height of the superior endplate of the L4 vertebrae. Mild degree of diffuse posterior disc bulge. No significant stenosis seen. L5-S1: No significant abnormality is seen. Sacrum: Unremarkable CT/Spine Lumbar without Contrast IMPRESSION: Prior vertebroplasty of the T12 and L3 vertebrae. Loss of height of the T12, L 2-L3 and L4 vertebrae as described. No significant stenosis seen. Reading Location: [place] [id number]
== END | disposition home or self-care (01) ==
LOC: CT 10:23
PROVIDERS: PCP Student in an Organized Health Care Education/Training Program; Referring Provider Clinical Nurse Specialist Adult Health; Visit Provider Clinical Nurse Specialist Adult Health
DX: Z98.890 Other specified postprocedural states (principal)
CPT/HCPCS: 72131

== ENCOUNTER → 2025-04-04 | Outpatient (CLI) | payer OTHER, SELFPAY ==
--- NOTE | 2025-04-04 08:30 | BONBX_PTH ---
PATIENT: ANNABELLA ELLIOTT LOC: [facility] U#:[id number] AGE/SX: 44/M ROOM: RE04/04/[address]: Dr. Barry Hinson MD : 1980 BED: DIS: 04/04/2025 SPEC #: [id number] RECD: 04/04/25 12:15 STATUS: ABBE REHaris #: [id number] LYNN: 04/04/25 08:[address]: Barry Hinson DEPT: SURGICAL PATHOLOGY RECD BY: Jose Marx ENTERED: 04/04/25 13:49 SP TYPE: Bone OTHR DR: Dr. Edwin Kumar DO Tissues: A - Vertebra, NOS B - Vertebra, NOS Procedures: Decalcification bone/plaque Surgery Specimen Level V HEADER OPERATION: Balloon kyphoplasty at L2 and L4 with biopsy under fluoroscopy PRE-OP DIAGNOSIS: Other osteoporosis with current pathological fracture, unspecified site, initial encounter for fracture TISSUE SUBMITTED: A- Body of L2, B- Body of L4 MICROSCOPIC DIAGNOSIS A. L2 vertebral body, balloon kyphoplasty and biopsy under fluoroscopy:B. L4 vertebral body, balloon kyphoplasty and biopsy under fluoroscopy: MICROSCOPIC DESCRIPTION Slides are reviewed. GROSS DESCRIPTION Received in 2 formalin containers labeled with the patient's name and date of . Designated as: A. L2 vertebral body is a 0.5 x 0.2 cm gómez-red, fragmented portion of bone. Entirely submitted in 1 cassette, following brief decalcification. B. L4 vertebral body is a 1.4 x 0.3 cm red, cylindrical portion of bone. Entirely submitted in 1 cassette, following brief decalcification. OR 04/04/2025 CPT:21436x2,43939v7
== END | disposition home or self-care (01) ==
LOC: LABSPEC 12:23
PROVIDERS: PCP Student in an Organized Health Care Education/Training Program; Referring Provider Anesthesiology Pain Medicine; Visit Provider Anesthesiology Pain Medicine
DX: M80.80XA Other osteoporosis with current pathological fracture, unspecified site, initial encounter for fracture (principal)
CPT/HCPCS: 88307; 88311